=== PATIENT | male | born 1985 | race African-American/Black ===

== ENCOUNTER 2023-04-28 14:22 | Emergency (ER) | payer OTHER, SELFPAY ==
[2023-04-28 14:25] VITALS: BP 120/78; PULSE 105; RESP 18; TEMP 36.8; O2SAT 98
--- NOTE | 2023-04-28 14:37 | ECG_ITS ---
[facility] Test Date: 2023-04-28 Pat Name: LATIA MARAVILLA Department: Room: - Gender: Male [employer]: : 1985 Requested By: [id number] Order Number: [id number] Reading MD: VICENTE STEPHENS Measurements Intervals [place] Rate: 96 P: 43 IL: 160 QRS: -21 QRSD: 94 T: 43 QT: 332 QTc: 386 Interpretive Statements 1100 Sinus rhythm 7202 Moderate left axis deviation 9110 normal ECG No previous ECG available for comparison Electronically Signed On 04-29-2023 7:08:48 EDT by VICENTE STEPHENS
--- NOTE | 2023-04-28 14:39 | ED.PSYCH1 ---
Documented by User: NATALIIA Richardson 04/28/23 16:48 HPI - Psych General Chief Complaint: Psychiatric Symptoms Stated Complaint: SUICIDAL Time Seen by Provider: 04/28/23 14:34 Source: Reports patient and law enforcement Mode of arrival: law enforcement Limitations: Reports no limitations History of Present Illness HPI Narrative: Patient is a 37-year-old male brought in by ambulance for suicidal statements that he may prior to arrival. Police were on scene, they did not pink slip the patient. He made statements that he doesn't want to be here . Patient states he has been having issues with his left knee and left leg since a knee surgery one year ago and he is frustrated that his therapy and specialist appointments are not producing results to improve his functioning. He reports continued pain to the leg. He states it makes him feel hopeless and is though he has wall not be alive. He denies any specific suicidal plan. He denies any drug or alcohol ingestion. He states he does have a history of suicide attempt and has been hospitalized in the past. He states very clearly that he does not wish to be hospitalized and that he will refuse to go. Related Data Allergies Allergy/AdvReac Type Severity Reaction Status Date / Time No Known Drug Allergies Allergy Verified 04/28/23 14:47 Review of Systems ROS Constitutional Denies: fever or chills Ears, nose, mouth, and throat Denies: throat pain Cardiovascular Denies: chest pain Respiratory Denies: shortness of breath Gastrointestinal Denies: nausea or vomiting Musculoskeletal Reports: extremity pain; Denies: back pain or neck pain Integumentary/Breast Denies: rash Psychiatric Reports: hopelessness Hematologic/Lymphatic Denies: easy bruising PFSH PFSH Social History Smoking status: Never smoker Exam Narrative Exam Narrative: Gen.: Awake, alert, in no distress Head: Normocephalic, atraumatic ENT: Moist mucous membranes Respiratory: No respiratory distress Extremities: Knee brace to the left knee Psych: Normal mood and affect Neuro: No focal neuro deficit Skin: Warm, dry, intact Constitutional Vital Signs, click to edit/add: Last Vital Signs Temp 98.2 F 04/28/23 14:25 Pulse 105 H 04/28/23 14:25 Resp 18 04/28/23 14:25 BP 120/78 04/28/23 14:25 Pulse Ox 98 04/28/23 14:25 O2 Del Method Room Air 04/28/23 14:25 Course Vital Signs Vital signs: Vital Signs Temperature 98.2 F 04/28/23 14:25 Pulse Rate 105 H 04/28/23 14:25 Respiratory Rate 18 04/28/23 14:25 Blood Pressure 120/78 04/28/23 14:25 Pulse Oximetry 98 04/28/23 14:25 Oxygen Delivery Method Room Air 04/28/23 14:25 Temperature 98.2 F 04/28/23 14:25 Pulse Rate 105 H 04/28/23 14:25 Respiratory Rate 18 04/28/23 14:25 Blood Pressure 120/78 04/28/23 14:25 Pulse Oximetry 98 04/28/23 14:25 Oxygen Delivery Method Room Air 04/28/23 14:25 MDM - Psych MDM Narrative Medical decision making narrative: Patient remained calm, cooperative in the Emergency Room. His girlfriend came to the Emergency Room and is in agreement with treatment plan for safety plan. Patient discussed his clinical presentation with counseling services at [facility] and a safety plan was initiated. He will follow up with counseling in the next week, his girlfriend will stay with him and he is going have phone call [facility] counseling tomorrow. Return to the Emergency Room if symptoms change or worsen. The patient's therapist was contacted by [facility] counseling services, the symptoms that he is having today are chronic and ongoing for him. Counseling services do not feel he represents a suicidal risk at this time. Medical Records Attestation: I reviewed the patient's medical records. Lab Data Attestation: I reviewed the patient's lab results. Labs: Lab Results 04/28/23 04/28/23 Range/Units 14:55 16:15 WBC 6.3 (4.0-11.0) 10^3/uL RBC 4.83 (4.70-6.10) 10^6/uL Hgb 13.6 L (14.0-18.0) g/dL Hct 40.5 L (42.0-54.0) % MCV 83.9 (80.0-94.0) fL MCH 28.2 (25.9-34.0) pg MCHC 33.6 (29.9-35.2) g/dL RDW 14.4 (11.0-15.0) % Plt Count 188 (150-450) 10^3/uL MPV 9.6 (9.5-13.5) fL Neut % (Auto) 51.5 (43.0-75.0) % Lymph % (Auto) 36.0 (20.5-60.0) % [place] % (Auto) 7.2 (1.7-12.0) % Eos % (Auto) 4.5 (0.9-7.0) % Baso % (Auto) 0.6 (0.2-2.0) % Neut # (Auto) 3.2 (1.4-6.5) 10^3/uL Lymph # (Auto) 2.3 (1.2-3.8) 10^3/uL [place] # (Auto) 0.5 (0.3-0.8) 10^3/uL Eos # (Auto) 0.3 (0.0-0.7) 10^3/uL Baso # (Auto) 0.0 (0.0-0.1) 10^3/uL Abs Immat Gran (auto) 0.01 (0.00-0.03) 10^3/uL Imm/Tot Granulo (auto) 0.2 (0.0-0.5) % Sodium 141 (136-145) mmol/L Potassium 3.9 (3.5-5.1) mmol/L Chloride 104 (98-107) mmol/L Carbon Dioxide 27.2 (21.0-32.0) mmol/L Anion Gap 13.7 BUN 9.0 (7.0-18.0) mg/dL Creatinine 1.19 (0.70-1.30) mg/dL Est GFR ( Amer) >60 (>=60) Est GFR (Non-Af Amer) >60 (>=60) BUN/Creatinine Ratio 7.6 Glucose 89 (74-106) mg/dL Calcium 8.7 (8.5-10.1) mg/dL Total Bilirubin 0.4 (0.2-1.0) mg/dL AST 19 (15-37) U/L ALT 30 (16-63) U/L Alkaline Phosphatase 166 H (46-116) U/L Total Protein 7.5 (6.4-8.2) g/dL Albumin 4.3 (3.4-5.0) g/dL Globulin 3.2 g/dL Albumin/Globulin Ratio 1.3 Salicylates <2.8 (<=19.9) mg/dL Urine Opiates Screen Negative (NEGATIVE) Ur Buprenorphine Scrn Positive A (NEGATIVE) Ur Oxycodone Screen Negative (NEGATIVE) Urine Methadone Screen Negative (NEGATIVE) Ur Propoxyphene Screen Negative (NEGATIVE) Acetaminophen <2.0 L (10.0-30.0) ug/mL Ur Barbiturates Screen Negative (NEGATIVE) U Tricyclic Antidepress Positive A (NEGATIVE) Ur Phencyclidine Scrn Negative (NEGATIVE) Ur Amphetamines Screen Negative (NEGATIVE) U Methamphetamines Scrn Negative (NEGATIVE) U Benzodiazepines Scrn Positive A (NEGATIVE) Urine Cocaine Screen Negative (NEGATIVE) U Cannabinoids Screen Negative (NEGATIVE) Ethanol Quant <3 mg/dL ECG Data Attestation: I personally reviewed and interpreted this ECG as follows: (Normal sinus rhythm at a rate of ninety-six, no acute ST elevation or ectopy. EKG reviewed by attending physician.) ECG interpretation date: 04/28/23 ECG interpretation time: 16:48 Discharge Plan Discharge Chief Complaint: Psychiatric Symptoms Clinical Impression: Depression Patient Disposition: Home, Self-Care Time of Disposition Decision: 16:46 Condition: Good Instructions: Depression (ED) Additional Instructions: Follow up with [facility] counseling as scheduled, return to the ED for any issues Stand Alone Forms: Portal Instructions Referrals: Physician,Non-Staff, [Physician] - 1 week Documented by User: Talya Rivero MD 04/28/23 16:50 HPI - Psych General Chief Complaint: Psychiatric Symptoms Stated Complaint: SUICIDAL Time Seen by Provider: 04/28/23 14:34 Related Data Allergies Allergy/AdvReac Type Severity Reaction Status Date / Time No Known Drug Allergies Allergy Verified 04/28/23 14:47 PFSH PFSH Social History Smoking status: Never smoker Exam Constitutional Vital Signs, click to edit/add: Last Vital Signs Temp 98.2 F 04/28/23 14:25 Pulse 105 H 04/28/23 14:25 Resp 18 04/28/23 14:25 BP 120/78 04/28/23 14:25 Pulse Ox 98 04/28/23 14:25 O2 Del Method Room Air 04/28/23 14:25 Course Vital Signs Vital signs: Vital Signs Temperature 98.2 F 04/28/23 14:25 Pulse Rate 105 H 04/28/23 14:25 Respiratory Rate 18 04/28/23 14:25 Blood Pressure 120/78 04/28/23 14:25 Pulse Oximetry 98 04/28/23 14:25 Oxygen Delivery Method Room Air 04/28/23 14:25 Temperature 98.2 F 04/28/23 14:25 Pulse Rate 105 H 04/28/23 14:25 Respiratory Rate 18 04/28/23 14:25 Blood Pressure 120/78 04/28/23 14:25 Pulse Oximetry 98 04/28/23 14:25 Oxygen Delivery Method Room Air 04/28/23 14:25 MDM - Psych MDM Narrative Medical decision making narrative: Patient remained calm, cooperative in the Emergency Room. His girlfriend came to the Emergency Room and is in agreement with treatment plan for safety plan. Patient discussed his clinical presentation with counseling services at [facility] and a safety plan was initiated. He will follow up with counseling in the next week, his girlfriend will stay with him and he is going have phone call [facility] counseling tomorrow. Return to the Emergency Room if symptoms change or worsen. The patient's therapist was contacted by [facility] counseling services, the symptoms that he is having today are chronic and ongoing for him. Counseling services do not feel he represents a suicidal risk at this time. Attending physician attestation I have reviewed the mid-level documentation, agree with the documentation, medical decision making and treatment plan as outlined by the mid-level provider. Lab Data Labs: Lab Results 04/28/23 04/28/23 Range/Units 14:55 16:15 WBC 6.3 (4.0-11.0) 10^3/uL RBC 4.83 (4.70-6.10) 10^6/uL Hgb 13.6 L (14.0-18.0) g/dL Hct 40.5 L (42.0-54.0) % MCV 83.9 (80.0-94.0) fL MCH 28.2 (25.9-34.0) pg MCHC 33.6 (29.9-35.2) g/dL RDW 14.4 (11.0-15.0) % Plt Count 188 (150-450) 10^3/uL MPV 9.6 (9.5-13.5) fL Neut % (Auto) 51.5 (43.0-75.0) % Lymph % (Auto) 36.0 (20.5-60.0) % [place] % (Auto) 7.2 (1.7-12.0) % Eos % (Auto) 4.5 (0.9-7.0) % Baso % (Auto) 0.6 (0.2-2.0) % Neut # (Auto) 3.2 (1.4-6.5) 10^3/uL Lymph # (Auto) 2.3 (1.2-3.8) 10^3/uL [place] # (Auto) 0.5 (0.3-0.8) 10^3/uL Eos # (Auto) 0.3 (0.0-0.7) 10^3/uL Baso # (Auto) 0.0 (0.0-0.1) 10^3/uL Abs Immat Gran (auto) 0.01 (0.00-0.03) 10^3/uL Imm/Tot Granulo (auto) 0.2 (0.0-0.5) % Sodium 141 (136-145) mmol/L Potassium 3.9 (3.5-5.1) mmol/L Chloride 104 (98-107) mmol/L Carbon Dioxide 27.2 (21.0-32.0) mmol/L Anion Gap 13.7 BUN 9.0 (7.0-18.0) mg/dL Creatinine 1.19 (0.70-1.30) mg/dL Est GFR ( Amer) >60 (>=60) Est GFR (Non-Af Amer) >60 (>=60) BUN/Creatinine Ratio 7.6 Glucose 89 (74-106) mg/dL Calcium 8.7 (8.5-10.1) mg/dL Total Bilirubin 0.4 (0.2-1.0) mg/dL AST 19 (15-37) U/L ALT 30 (16-63) U/L Alkaline Phosphatase 166 H (46-116) U/L Total Protein 7.5 (6.4-8.2) g/dL Albumin 4.3 (3.4-5.0) g/dL Globulin 3.2 g/dL Albumin/Globulin Ratio 1.3 Salicylates <2.8 (<=19.9) mg/dL Urine Opiates Screen Negative (NEGATIVE) Ur Buprenorphine Scrn Positive A (NEGATIVE) Ur Oxycodone Screen Negative (NEGATIVE) Urine Methadone Screen Negative (NEGATIVE) Ur Propoxyphene Screen Negative (NEGATIVE) Acetaminophen <2.0 L (10.0-30.0) ug/mL Ur Barbiturates Screen Negative (NEGATIVE) U Tricyclic Antidepress Positive A (NEGATIVE) Ur Phencyclidine Scrn Negative (NEGATIVE) Ur Amphetamines Screen Negative (NEGATIVE) U Methamphetamines Scrn Negative (NEGATIVE) U Benzodiazepines Scrn Positive A (NEGATIVE) Urine Cocaine Screen Negative (NEGATIVE) U Cannabinoids Screen Negative (NEGATIVE) Ethanol Quant <3 mg/dL Discharge Plan Discharge Chief Complaint: Psychiatric Symptoms Clinical Impression: Depression Patient Disposition: Home, Self-Care Time of Disposition Decision: 16:46 Condition: Good Instructions: Depression (ED) Additional Instructions: Follow up with [facility] counseling as scheduled, return to the ED for any issues Stand Alone Forms: Portal Instructions Referrals: Physician,Non-Staff, [Physician] - 1 week
[2023-04-28 15:03] LABS: Basophils Percent Auto 0.6 % (0.2-2.0); Eosinophils Absolute Auto 0.3 10^3/uL (0.0-0.7); Eosinophils Percent Auto 4.5 % (0.9-7.0); Hematocrit 40.5 % (42.0-54.0); Hemoglobin 13.6 g/dL (14.0-18.0); Immature Granulocytes Abs Auto 0.01 10^3/uL (0.00-0.03); Immature Granulocytes Pct Auto 0.2 % (0.0-0.5); Lymphocytes Absolute Auto 2.3 10^3/uL (1.2-3.8); Mean Corpuscular HGB Conc 33.6 g/dL (29.9-35.2); Mean Corpuscular Hemoglobin 28.2 pg (25.9-34.0); Mean Corpuscular Volume 83.9 fL (80.0-94.0); Mean Platelet Volume 9.6 fL (9.5-13.5); Monocytes Absolute Auto 0.5 10^3/uL (0.3-0.8); Monocytes Percent Auto 7.2 % (1.7-12.0); Neutrophils Absolute Auto 3.2 10^3/uL (1.4-6.5); Neutrophils Percent Auto 51.5 % (43.0-75.0); Platelet Count 188 10^3/uL (150-450); Red Blood Count 4.83 10^6/uL (4.70-6.10); Red Cell Distribution Width 14.4 % (11.0-15.0); White Blood Count 6.3 10^3/uL (4.0-11.0)
[2023-04-28 15:17] LABS: Alanine Aminotransferase 30 U/L (16-63); Albumin Globulin Ratio 1.3; Albumin Level 4.3 g/dL (3.4-5.0); Alkaline Phosphatase 166 U/L (46-116); Anion Gap 13.7; Aspartate Amino Transferase 19 U/L (15-37); BUN Creatinine Ratio 7.6; Bilirubin Total 0.4 mg/dL (0.2-1.0); Calcium 8.7 mg/dL (8.5-10.1); Carbon Dioxide 27.2 mmol/L (21.0-32.0); Chloride 104 mmol/L (98-107); Estimated GFR (African America >60 (>=60); Estimated GFR (Non-African Ame >60 (>=60); Globulin 3.2 g/dL; Glucose 89 mg/dL (74-106); Potassium 3.9 mmol/L (3.5-5.1); Salicylate <2.8 mg/dL (<=19.9); Sodium 141 mmol/L (136-145); Total Protein 7.5 g/dL (6.4-8.2)
[2023-04-28 15:18] LABS: Acetaminophen <2.0 ug/mL (10.0-30.0); Ethanol <3 mg/dL
--- NOTE | 2023-04-28 15:50 | PC.NURSE ---
pt speaking with Malinda, a counselor from [facility], on the phone at this time. girlfriend at bedside. pt appears less anxious/angry and is cooperative at this time
[2023-04-28 16:40] LABS: Amphetamine Screen Urine NEGATIVE (NEGATIVE); Barbiturates Screen Urine NEGATIVE (NEGATIVE); Benzodiazepines Screen Urine POSITIVE (NEGATIVE); Buprenorphine Screen Urine POSITIVE (NEGATIVE); Cannabinoid Screen Urine NEGATIVE (NEGATIVE); Cocaine Screen Urine NEGATIVE (NEGATIVE); Methadone Screen Urine NEGATIVE (NEGATIVE); Methamphetamines Screen Urine NEGATIVE (NEGATIVE); Opiate Screen Urine NEGATIVE (NEGATIVE); Oxycodone Screen Urine NEGATIVE (NEGATIVE); Phencyclidine Screen Urine NEGATIVE (NEGATIVE); Tricyclic Antidepressant Urine POSITIVE (NEGATIVE)
== END 2023-04-28 17:02 | disposition home or self-care (01) ==
PROVIDERS: Physician Assistant; Emergency Provider Emergency Medicine; PCP Nurse Practitioner Family
DX: F32.A Depression, unspecified (principal); R45.851 Suicidal ideations
CPT/HCPCS: 36415; 80053; 80179; 80307; 80320; 80329; 85025; 87635; 93005; 99285

== ENCOUNTER 2023-05-21 10:55 | Outpatient (RCR) | payer OTHER, SELFPAY | END 2023-06-16 15:34 | disposition home or self-care (01) | LOC: PT 10:55 | PROVIDERS: PCP Nurse Practitioner Family | DX: M25.562 Pain in left knee (principal); M25.561 Pain in right knee | CPT/HCPCS: 97110; 97140; 97162 ==

== ENCOUNTER 2023-08-01 14:40 | Emergency (ER) | payer OTHER, SELFPAY ==
[2023-08-01 14:43] VITALS: BP 117/70; PULSE 96; RESP 18; TEMP 36.5; O2SAT 100; BMI 16.5
--- NOTE | 2023-08-01 14:49 | XR_ITS ---
The [address] [address] Patient Name: LATIA MARAVILLA MRN: [id number] date: 1985 Sex: M Assigned Patient Location: ER Current Patient Location: ER Accession/Order Number: [id number] Exam Date: 08/01/2023 15:00 Report Date: 08/01/2023 15:54 At the request of: ELISA ADAME Procedure: XR knee LT 4V EXAM: XR knee LT 4V HISTORY: injury COMPARISON: None. TECHNIQUE: 5 views FINDINGS: Patient is status post total knee replacement arthroplasty. The prosthesis and [place] bone exhibit no gross visualized abnormality. The joint spaces are maintained. XR/XR knee LT 4V IMPRESSION: No visualized acute abnormality Electronically authenticated by: DAMARIS PRESTON Date: 08/01/2023 15:54
--- NOTE | 2023-08-01 14:50 | ED.LOWEXI1 ---
HPI - Extremity Injury (Lower) General Chief Complaint: Extremity Injury, Lower Stated Complaint: LOWER EXTREMITY INJURY Time Seen by Provider: 08/01/23 14:47 Mode of arrival: Wheelchair Limitations: no limitations History of Present Illness HPI Narrative: 38 year old male presents for left knee pain. He had his knee replaced just over a year ago and he states he gives out every day but it gave out today and he went down. He states his knee is shaking. He states he is not on any pain medications at home. Related Data Home Medications Medication Instructions Recorded Confirmed aripiprazole 10 mg tablet 10 mg PO DAILY 08/01/23 08/01/23 atomoxetine 25 mg capsule 25 mg PO DAILY 08/01/23 08/01/23 fluoxetine 40 mg capsule 40 mg PO DAILY 08/01/23 08/01/23 hydroxyzine HCl 50 mg tablet 50 mg PO Q8H 08/01/23 08/01/23 lamotrigine 150 mg tablet 150 mg PO Q8H 08/01/23 08/01/23 Previous Rx's Medication Instructions Recorded etodolac 400 mg tablet 400 mg PO Q8H PRN pain #20 tabs 08/01/23 Allergies Allergy/AdvReac Type Severity Reaction Status Date / Time ketorolac [From Toradol] AdvReac Intermediate Verified 08/01/23 14:46 penicillin G AdvReac Intermediate Verified 08/01/23 14:46 tramadol AdvReac Intermediate Verified 08/01/23 14:46 Review of Systems ROS Narrative A ten point review of systems is negative except as noted above. chronic Left knee pain PFSH PFSH Social History Smoking status: Never smoker Exam Constitutional Vital Signs, click to edit/add: Last Vital Signs Temp 97.7 F 08/01/23 14:43 Pulse 96 H 08/01/23 14:43 Resp 18 08/01/23 14:43 BP 117/70 08/01/23 14:43 Pulse Ox 100 08/01/23 14:43 O2 Del Method Room Air 08/01/23 14:43 Course Vital Signs Vital signs: Vital Signs Temperature 97.7 F 08/01/23 14:43 Pulse Rate 96 H 08/01/23 14:43 Respiratory Rate 18 08/01/23 14:43 Blood Pressure 117/70 08/01/23 14:43 Pulse Oximetry 100 08/01/23 14:43 Oxygen Delivery Method Room Air 08/01/23 14:43 Temperature 97.7 F 08/01/23 14:43 Pulse Rate 96 H 08/01/23 14:43 Respiratory Rate 18 08/01/23 14:43 Blood Pressure 117/70 08/01/23 14:43 Pulse Oximetry 100 08/01/23 14:43 Oxygen Delivery Method Room Air 08/01/23 14:43 MDM - Extremity Injury (Lower) MDM Narrative Medical decision making narrative: x-ray my interpretation shows no acute findings. He has crutches at home. Eugene wrap applied and application checked by me and found be appropriate, he is neuroovascularly intact. He was provided anti-inflammatory medication and will follow-up with his orthopedist. Treat diagnosis and follow-up were discussed with the patient. Differential Diagnosis Differential diagnosis: Likely other (knee sprain, hardware displacement) Imaging Data knee x-ray: My impression: no acute findings Discharge Plan Discharge Chief Complaint: Extremity Injury, Lower Clinical Impression: Chronic knee pain Patient Disposition: Home, Self-Care Time of Disposition Decision: 15:53 Condition: Good Mode of Transportation: Private Vehicle Prescriptions / Home Meds: New etodolac 400 mg tablet 400 mg PO Q8H PRN (Reason: pain) Qty: 20 0RF No Action aripiprazole 10 mg tablet 10 mg PO DAILY atomoxetine 25 mg capsule 25 mg PO DAILY fluoxetine 40 mg capsule 40 mg PO DAILY hydroxyzine HCl 50 mg tablet 50 mg PO Q8H lamotrigine 150 mg tablet 150 mg PO Q8H Instructions: Crutch Instructions (ED), Chronic Pain (ED) Stand Alone Forms: Portal Instructions Referrals: FELICIA ANTONIO [Primary Care Provider] - 1 week
== END 2023-08-01 16:07 | disposition home or self-care (01) ==
PROVIDERS: Emergency Provider Emergency Medicine; PCP Nurse Practitioner Family
DX: M25.562 Pain in left knee (principal); G89.29 Other chronic pain; Z96.652 Presence of left artificial knee joint; Z79.899 Other long term (current) drug therapy
CPT/HCPCS: 73564; 99283

== ENCOUNTER 2024-06-14 07:54 | Outpatient (OUT) | payer OTHER, SELFPAY ==
--- OUTSIDE RECORDS SUMMARY | 2024-06-14 08:00 | XMS_ITS | CCD ---
Author Organization [facility] Care Team Providers Care 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 Name Role Phone Teddy Lam Unavailable Unavailable Kentrell Ramírez Unavailable Unavailable Unavailable Unavailable Unavailable Trey Wright Unavailable Dario Marroquin Unavailable NO FAMILY, PHYSICIAN Primary Care Provider Unava MD Trey Das Attending Provider [phone] DO Jelena Gregorio Jr Attending Provider NON STAFF Primary Care Provider UnavailMD Isaías Castle Attending Provider [phone] NO FAMILY, PHYSICIAN Primary Care Provider Unava imani Witt, LeonardD Shanda Other Provider Yolande Beck Unavailable George Chaparro DO Unavailable Андрей Goode Primary Care Provider [phone] Raisa Cabrera PA-C Unavailable REQUEST, NONE LISTED Primary Care Unavaila ble EVIN SHETH Admitting Unavailable EVIN SHETH Attending Unavailable SHAWN MCCABE Consulting Unavailable Katie Rodriguez Consulting Unavailable EVIN SHETH Consulting Unavailable MISC, DR VERA Admitting Unavailable MISC, DR VERA Attending Unavailable REQUEST, NONE LISTED Primary Care Unavaila ble MISC, DR VERA Consulting Unavailable MISC, DR VERA Admitting Unavailable MISC, DR VERA Attending Unavailable REQUEST, NONE LISTED Primary Care Unavaila ble MISC, DR VERA Consulting Unavailable George Chaparro DO Unavailable PROVIDER, UNKNOWN Attending Unavailable PROVIDER, UNKNOWN Admitting Unavailable NO FAMILY, PHYSICIAN Primary Care Provider Unava ilDO Jelena Spears Jr Attending Provider PLASENCIA, SHEA Attending Unavailable PLASENCIA, SHEA Referring Unavailable PAVLOCK, [facility] Primary Care Unavailable PLASENCIA, SHEA Referring Unavailable PAVLOCK, [facility] Primary Care Unavailable SEMPLE, TORIBIO Referring Unavailable PAVLOCK, [facility] Primary Care Unavailable PLASENCIA, SHEA Attending Unavailable PLASENCIA, SHEA Referring Unavailable PAVLOCK, [facility] Primary Care Unavailable KELLE GORDON Attending Unavailable PAVLOCK, [facility] Primary Care Unavailable PLASENCIA, SHEA Attending Unavailable PAVLOCK, [facility] Primary Care Unavailable KARI, FUAD Attending Unavailable PLASENCIA, SHEA Referring Unavailable PAVLOCK, [facility] Primary Care Unavailable PAVLOCK, [facility] Primary Care Unavailable PLASENCIA, SHEA Attending Unavailable PAVLOCK, [facility] Primary Care Unavailable PLASENCIA, SHEA Referring Unavailable PAVLOCK, [facility] Primary Care Unavailable KARI, FUAD Referring Unavailable POOJA CORDON Attending Unavailable PAVLOCK, [facility] Primary Care Unavailable PAVLOCK, [facility] Primary Care Unavailable PLASENCIA, SHEA Referring Unavailable KELLE GORDON Attending Unavailable PAVLOCK, [facility] Primary Care Unavailable PLASENCIA, SHEA Attending Unavailable DESTINEY GARCIA Attending Unavailable PLASENCIA, SHEA Referring Unavailable PAVLOCK, [facility] Primary Care Unavailable VIVIANA MACEDO Attending Unavailable PAVLOCK, [facility] Primary Care Unavailable PLASENCIA, SHEA Referring Unavailable SEMPLE, TORIBIO Attending Unavailable PAVLOCK, [facility] Primary Care Unavailable ANA, DAMARIS Referring Unavailable JURGEN SCOTT Attending Unavailable ANA, DAMARIS Referring Unavailable DAMARIS PEREZ Attending Unavailable JR. GREGORIO GEORGE C Attending Unavaila wong GREGORIO JR., JELENA Stallings Attending Unavaila wong GREGORIO JR., JELENA Stallings Attending Unavaila ble JR. GREGORIO GEORGE C Referring Unavaila ble JR. ANITHA, JELENA Stallings Attending Unavaila ble NAKUL SOSA Attending Unavailable GENERIC PROVIDER, NO ASSIGNED PCP Primary Care Unavailable NAKUL SOSA Referring Unavailable GENERIC PROVIDER, NO ASSIGNED PCP Primary Care Unavailable NO FAMILY, PHYSICIAN Primary Care Unavailable Jelena Gregorio Jr Admitting Unavailable Jelena Gregorio Jr Attending Unavailable Penelope Pastrana Admitting Unavailable Penelope Pastrana Attending Unavailable NO FAMILY, PHYSICIAN Primary Care Unavailable Allergies Allergy Classification Reported Allergen(s) Allergy Type Date of Onset Reaction(s) Facility (1 source) penicillin; Translations: [penicillin] Drug Allergy [facility] Repository (20 sources) Ketorolac; Translations: [KETOROLAC] Drug Allergy 03-07-20 19 Other: See Comments [facility] (20 sources) Penicillins; Translations: [Penicillins] Allergy to Substance 05-07-20 13 Swelling [facility] (20 sources) traMADol; Translations: [tramadol] Drug Allergy 09-22-19 15 Mental Status Change [facility] (17 sources) Ketorolac; Translations: [Toradol] Drug Allergy 09-22-19 15 anxiety [facility] Repository (16 sources) penicillAMINE Drug Allergy [facility] Other (1 source) ALLERGIES NOT ON FILE; Translations: [ALLERGIES NOT ON FILE] Propensity to adverse reactions (disorder) [facility] Repository (1 source) penicillAMINE Drug Allergy 06-04-20 23 [facility] Repository Medications Current Medications Medication Drug Class(es) Dates Sig (Normalized) Sig (Original) acetaminophen 325 mg / oxyCODONE hydrochloride 5 mg oral tablet (2 sources) Opioid Agonist Start: 06-05-2022 take 1 tablet by mouth every six hours Oxycodone-Acetami nophen (Percocet) 5-325 mg tablet Active 1 TAB PO Q6H 28 7 June 05, 2022 aspirin 81 mg delayed release oral tablet (2 sources) Platelet Aggregation Inhibitor, Nonsteroidal Anti-inflammatory Drug Start: 06-09-2022 take 81 mg by mouth twice daily Aspirin Active 81 MG PO Twice daily June 09, 2022 12:00am hydrOXYzine hydrochloride 25 mg oral tablet (20 sources) Antihistamine Start: 03-04-2022 take 50 mg by mouth four times daily Hydroxyzine Hcl Active 50 MG PO Four times daily March 04, 2022 12:00am Start: 06-27-2021 take 1 tablet by netta th every eight hours as needed hydrOXYzine HCl (ATARAX) 25 mg tablet 25 mg three times daily as needed. 0 06/27/2021 Active Comment on above: 25 mg three times da sang as needed. lidocaine 0.05 mg/mg medicated patch (1 source) Antiarrhythmic, Amide Local Anesthetic Start: 06-04-20 Lidocaine 5 % 2 patches Externally Once a day for 30 days May, Active lumateperone 42 mg oral capsule (4 sources) Start: 05-19-20 take 1 capsule by mouth once daily Lumateperone (Caplyta) 42 mg capsule Active 42 MG PO Daily May 19, 2022 12:00am methocarbamol 750 mg oral tablet (11 sources) Muscle Relaxant Start: 03-24-20 End: 07-11-20 take 1 tablet by mouth every six hours as needed methocarbamol (ROBAXIN) 750 mg tablet Take 1 tablet by mouth four times a day as needed. 120 tablet 0 06/11/2023 07/11/2023 Active Start: 01-13-2023 End: 02-12-2023 take 1 tablet by mouth four times daily as needed methocarbamol (ROBAXIN-750) 750 mg tablet Take 1 tablet by mouth four times daily as needed. 120 tablet 0 01/13/2023 02/12/2023 Active Comment on above: Take 1 tablet by netta th four times daily as needed. TAKE 1 TABLET BY NETTA TH 4 TIMES A DAY NEEDED Take 1 tablet by netta th four times a day as needed. Naltrexone (3 sources) Opioid Antagonist Start: 3 End: 3 take 1 capsule by mouth once daily naltrexone 0.5 mg capsule (CPD) Take 1 capsule by mouth once daily. 30 capsule 0 06/28/2023 07/28/2023 Active Comment on above: Take 1 capsule by mo [facility] once daily. omeprazole 40 mg delayed release oral capsule (17 sources) Proton Pump Inhibitor Start: 2 take 40 mg by mouth once daily Omeprazole Active 40 MG PO Daily March 04, 2022 12:00am QUEtiapine 400 mg oral tablet (20 sources) Atypical Antipsychotic Start: 1 take 800 mg by mouth once daily at bedtime Quetiapine Active 800 MG PO Daily at bedtime October 22, 2020 1:00am Start: 08-14-2019 End: 10-22-2020 take 2 tablets by mouth at bedtime Quetiapine (Seroquel) 300 mg tablet Discontinued 600 MG PO Bedtime August 14, 2019 10:08am October 22, 2020 6:56pm Start: 06-16-2019 End: 08-14-2019 take 300 mg by mouth at bedtime Quetiapine Discontinue d 300 MG PO Bedtime June 16, 2019 12:00am August 14, 2019 10:08am Start: 03-07-2019 End: 06-16-2019 take 600 mg by mouth at bedtime Quetiapine Discontinue d 600 MG PO Bedtime March 07, 2019 12:00am June 16, 2019 2:43pm take 2 tablets by mo ut once daily at bedtime QUEtiapine (SEROQUEL) 400 mg tablet Take 800 mg by mouth daily at bedtime. 0 Active End: 06-28-2023 QUEtiapine (SEROQUEL) 200 mg tablet Take 200 mg by mouth. 0 06/28/2023 Discontinued Comment on above: Take 200 mg by mouth . Take 800 mg by mouth daily at bedtime. TENS Unit (1 source) Start: 06-04-2023 TENS Unit Use as directed. May, Active Completed/Discontinued Medications Medication Drug Class(es) Dates Sig (Normalized) Sig (Original) acetaminophen 500 mg oral tablet (4 sources) Start: 02-23-2020 End: 10-22-2020 take 2 tablets by mouth once daily Acetaminophen (Acetaminophen Extra Strength) 500 mg Tablet Discontinued 1000 MG PO Daily February 23, 2020 12:00am October 22, 2020 6:56pm acetaminophen 325 mg / HYDROcodone bitartrate 5 mg oral tablet (4 sources) Opioid Agonist Start: 03-14-2020 End: 05-29-2020 take 1 tablet by mouth every four to six hours Hydrocodone-Acetam inophen (Hamilton) 5-325 mg tablet Discontinued 1 TAB PO EVERY 4-6 HOURS 5 2 March 14, 2020 May 29, 2020 11:08am ALPRAZolam 1 mg oral tablet (8 sources) Benzodiazepine Start: 03-07-2019 End: 06-16-2019 take 1 mg by mouth three times daily Alprazolam Discontinued 1 MG PO Three times daily March 07, 2019 12:00am June 16, 2019 2:43pm atomoxetine 60 mg oral capsule (20 sources) Norepinephrine Reuptake Inhibitor Start: 12-10-2022 take 1 capsule by mouth once daily atomoxetine (STRATTERA) 60 mg capsule Take 60 mg by mouth once daily. 0 12/10/2022 Active Start: 05-19-2022 take 25 mg by mouth once daily Atomoxetine Active 25 MG PO Daily May 19, 2022 12:00am Comment on above: Take 60 mg by mouth once daily. baclofen 10 mg oral tablet (8 sources) gamma-Aminobutyric Acid-ergic Agonist Start: 02-23-20 End: 03-24-20 take 1 tablet by mouth three times daily as needed baclofen (LIORESAL) 10 mg tablet Indications: Myofascial pain , Spasm of muscle Take 1 tablet by mouth three times daily as needed. 90 tablet 0 02/22/2023 03/24/2023 Comment on above: Take 1 tablet by netta three times daily as needed. brexpiprazole 0.5 mg oral tablet (17 sources) Atypical Antipsychotic Start: 07-04-20 brexpiprazole (REXULTI) 0.5 mg tablet 0.5 mg once daily. 0 07/04/2021 Active Comment on above: 0.5 mg once daily. busPIRone hydrochloride 10 mg oral tablet (1 source) busPIRone (BUSPA R) 10 mg tablet 10 mg twice daily. 0 Active Comment on above: 10 mg twice daily. cariprazine 6 mg oral capsule (12 sources) Atypical Antipsychotic Start: 06-13-20 End: 02-23-20 take 1 capsule by mouth at bedtime Cariprazine Discontinued 1 CAP PO Bedtime June 13, 2019 12:00am February 23, 2020 4:11pm Start: 03-07-2019 End: 06-13-2019 take 4.5 mg by mouth once daily Cariprazine Discontinued 4.5 MG PO Daily March 07, 2019 12:00am June 13, 2019 10:26am celecoxib 200 mg oral capsule (20 sources) Nonsteroidal Anti-inflammatory Drug Start: 07-07-2021 End: 06-28-2023 celecoxib (CELEBREX) 200 mg capsule 200 mg once daily. 0 07/07/2021 06/28/2023 Discontinued Comment on above: 200 mg once daily. citalopram 10 mg oral tablet (16 sources) Serotonin Reuptake Inhibitor Start: 06-16-2019 End: 08-17-2019 take 10 mg by mouth once daily Citalopram Discontinued 10 MG PO Daily 14 June 16, 2019 12:00am August 17, 2019 12:22pm Start: 06-13-2019 End: 06-16-2019 take 5 mg by mouth once daily Citalopram Discontinued 5 MG PO Daily June 13, 2019 12:00am June 16, 2019 2:43pm Start: 03-07-2019 End: 03-07-2019 Citalopram March 07, 2019 Dis continued Start: 03-07-2019 End: 03-07-2019 Citalopram March 07, 2019Feb Discontinued Start: 03-07-2019 End: 03-07-2019 Citalopram March 07, 2019 Dis continued Start: 03-07-2019 End: 03-07-2019 Citalopram March 07, 2019Feb Discontinued Start: 03-07-2019 End: 03-07-2019 Citalopram Discontinued TABL ET March 07, 2019 12:00am March 07, 2019 3:26am clonazePAM 0.5 mg oral tablet (4 sources) Benzodiazepine Start: 06-16-2019 End: 08-17-2019 take 0.5 mg by mouth twice daily Clonazepam Discontinued 0.5 MG PO Twice daily 14 June 16, 2019 12:00am August 17, 2019 12:22pm diazePAM 5 mg oral tablet (4 sources) Benzodiazepine Start: 10-11-2020 End: 10-22-2020 take 5 mg by mouth four times daily Diazepam Discontinued 5 MG PO Four times daily 30 October 11, 2020 1:00am October 22, 2020 5:35pm diclofenac sodium 0.01 mg/mg topical gel (16 sources) Nonsteroidal Anti-inflammatory Drug Start: 03-18-2023 End: 06-28-2023 diclofenac (VOLTAREN) 1 % topical gel Indications: Left leg pain , Myofascial pain , Spasm of muscle Apply judiciously 2-3 times per day left knee - read package insert for max daily dosing instructions 50 g 4 03/18/2023 06/28/2023 Discontinued Start: 01-25-2023 take 1 tablet by netta th every twelve hours Diclofenac Sodium 75 MG 1 tablet as needed Orally Twice a day for 30 days January, Active Comment on above: Apply judiciously 2- 3 times per day left knee - read package insert for max daily dosing instructions ergocalciferol 1.25 mg oral capsule (4 sources) Provitamin D2 Compound Start: End: take 1 capsule by mouth every week Ergocalciferol (Vitamin D2) (Vitamin D2) 50,000 unit capsule Discontinued [id number] UNIT PO every week 30 Marco A 5th, 2019 1:00am October 22, 2020 6:56pm takes jo-ann morning FLUoxetine 40 mg oral capsule (20 sources) Serotonin Reuptake Inhibitor Start: 023 take 2 capsules by mouth once daily FLUoxetine (PROZAC) 40 mg capsule Take 80 mg by mouth once daily. 0 12/18/2022 Active Start: 05-19-2022 take 40 mg by mouth once daily, then take 60 mg by mouth once daily Fluoxetine Active 20 MG PO Daily May 19, 2022 12:00am with 40mg for total 60mg daily Start: 05-19-2022 take 20 mg by mouth once daily, then take 60 mg by mouth once daily Fluoxetine Active 40 MG PO Daily May 19, 2022 12:00am with 20mg for total 60mg daily PROzac Active Comment on above: Take 80 mg by mouth once daily. gabapentin 300 mg oral capsule (20 sources) Anti-epileptic Agent Start: 02-06-20 End: 05-06-20 23 take 1 capsule by mouth three times daily gabapentin (NEURONTIN) 300 mg capsule Indications: Radiculopathy of lumbar region Take 1 capsule by mouth three times daily for 90 days. 90 capsule 2 02/05/2023 Active Comment on above: Take 1 capsule by mo [facility] three times daily for 90 days. ibuprofen 800 mg oral tablet (20 sources) Nonsteroidal Anti-inflammatory Drug take 1 tablet by mouth every eight hours as needed ibuprofen (MOTRIN) 800 mg tablet Take 800 mg by mouth every 8 hours as needed. 0 Active Comment on above: Take 800 mg by mouth every 8 hours as needed. lamoTRIgine 100 mg oral tablet (20 sources) Mood Stabilizer, Anti-epileptic Agent Start: 04-11-20 21 lamoTRIgine (LAMICTAL) 100 mg tablet 100 mg twice daily. 0 04/11/2021 Active Start: 06-13-2019 Lamotrigine (L amictal) 25 mg tablet Active 150 MG PO Twice daily June 13, 2019 7:02am Start: 03-10-2019 End: 06-13-2019 take 25 mg by mouth twice daily Lamotrigine Discontinu ed 25 MG PO Twice daily March 10, 2019 12:00am June 13, 2019 7:02am take 1 tablet by netta every twenty-four hours LaMICtal 100 MG 1 tablet Orally Once a day Active take 2 tablets by mo [facility] every twelve hours Comment on above: 100 mg twice daily. lithium carbonate 300 mg oral capsule (20 sources) Start: 06-27-2021 End: 06-28-2023 lithium carbonate (ESKALITH) 300 mg capsule 300 mg three times daily with meals. 0 06/27/2021 06/28/2023 Discontinued Start: 02-26-2021 End: 05-19-2022 take 300 mg by mouth once daily Bradford Carbonate Disc ontinued 300 MG PO Daily March 04, 2022 12:00am May 19, 2022 3:32pm Start: 08-14-2019 End: 02-23-2020 take 300 mg by mouth once daily Bradford Carbonate Disc ontinued 300 MG PO Daily August 14, 2019 1:00am February 23, 2020 4:13pm Start: 08-14-2019 End: 02-23-2020 take 600 mg by mouth at bedtime Bradford Carbonate Disc ontinued 600 MG PO Bedtime August 14, 2019 1:00am February 23, 2020 4:14pm Start: 03-07-2019 End: 06-13-2019 take 600 mg by mouth twice daily Bradford Carbonate Discontinued 600 MG PO Twice daily March 07, 2019 12:00am June 13, 2019 10:28am Comment on above: 300 mg three times d aily with meals. LORazepam 0.5 mg oral tablet (20 sources) Benzodiazepine Start: 2022 take 0.5 mg by mouth three times daily LORazepam (ATIVAN) 0.5 mg Take 0.5 mg by mouth three times daily. 0 01/03/2023 Active Comment on above: Take 0.5 mg by mouth three times daily. meloxicam 7.5 mg oral tablet (4 sources) Nonsteroidal Anti-inflammatory Drug Start: 2021 End: 2021 take 7.5 mg by mouth once daily Meloxicam Discontinued 7.5 MG PO Daily May 19, 2022 12:00am June 09, 2022 1:42pm methylPREDNISolone 4 mg oral tablet (20 sources) Corticosteroid Start: 2020 End: 2020 take 1 tablet by mouth once Methylprednisolone (Medrol (Julius)) 4 mg tablets,dose pack Discontinued 0 PO .COMPLEX October 15, 2020 1:00am October 22, 2020 6:56pm orally per package directions Start: 01-31-2020 Depo-Medrol 40 mg January, 40 mg Start: 01-12-2020 Depo-Medrol 80 mg January, 80 mg mirtazapine 15 mg oral tablet (4 sources) Start: 08-14-2019 End: 02-23-2020 take 15 mg by mouth at bedtime Mirtazapine Discontinued 15 MG PO Bedtime August 14, 2019 1:00am February 23, 2020 4:14pm naproxen 500 mg oral tablet (4 sources) Nonsteroidal Anti-inflammatory Drug Start: 03-01-2020 End: 05-29-2020 take 500 mg by mouth twice daily Naproxen Discontinued 500 MG PO Twice daily March 01, 2020 12:00am May 29, 2020 11:08am nicotine 2 mg chewing gum (4 sources) Cholinergic Nicotinic Agonist Start: 08-17-2019 End: 02-23-2020 Nicotine (Polacrilex) (Nicorelief) 2 mg Gum Discontinued 2 MG BUCCAL Every 2 hours August 17, 2019 1:00am February 23, 2020 4:14pm oxyCODONE hydrochloride 5 mg oral tablet (12 sources) Opioid Agonist Start: 10-11-2020 End: 10-22-2020 take 5 mg by mouth every four to six hours Oxycodone Discontinued 5 MG PO EVERY 4-6 HOURS 70 October 11, 2020 October 22, 2020 5:35pm Start: 03-07-2019 End: 06-13-2019 take 10 mg by mouth every six hours Oxycodone Discontinued 10 MG PO Q6H March 07, 2019 12:00am June 13, 2019 10:28am 24 hr paliperidone 3 mg extended release oral tablet (8 sources) Atypical Antipsychotic Start: 03-25-2022 End: 05-19-2022 take 3 mg by mouth once daily at bedtime Paliperidone Discontinued 3 MG PO Daily at bedtime May 19, 2022 12:00am May 19, 2022 3:37pm pantoprazole (20 sources) Proton Pump Inhibitor End: 06-28-2023 pantoprazole sodium (PROTONIX ORAL) Take by mouth as needed. 0 06/28/2023 Discontinued pantoprazole sod ium (PROTONIX ORAL) Take by mouth as needed. 0 Active Comment on above: Take by mouth as nee ded. prazosin 1 mg oral capsule (20 sources) alpha-Adrenergic Meredith Start: 05-19-2022 take 1 capsule by mouth once daily at bedtime prazosin (MINIPRESS) 1 mg cap Take 1 mg by mouth daily at bedtime. 0 01/02/2023 Active Comment on above: Take 1 mg by mouth d aily at bedtime. SUMAtriptan 25 mg oral tablet (12 sources) Serotonin-1b and Serotonin-1d Receptor Agonist Start: 06-16-2019 End: 02-23-2020 take 25 mg by mouth once daily Sumatriptan Succinate Discontinued 25 MG PO Daily 14 June 16, 2019 12:00am February 23, 2020 4:16pm Start: 03-10-2019 End: 06-13-2019 take 50 mg by mouth every eight hours Sumatriptan Succinate Discontinued 50 MG PO Q8H March 10, 2019 12:00am June 13, 2019 10:28am SZSTANDARD1-Topical Cream Baclofen 2%, Cyclobenzaprine HCL 2%, Diclofenac Na 3%, Gabapentin 6%, Lidocaine HCL 2% Cream (5 sources) Start: 12-10-2022 SZSTANDARD1-To pical Cream Baclofen 2%, Cyclobenzaprine HCL 2%, Diclofenac Na 3%, Gabapentin 6%, Lidocaine HCL 2% Cream NEEDED TOPICALLY APPLY 1-2 GRAMS FOR 2-3 MINUTES EVERY 6-8 HOURS for 30 days Nov, Not-Taking Start: 12-10-2022 SZSTANDARD1-To pical Cream Baclofen 2%, Cyclobenzaprine HCL 2%, Diclofenac Na 3%, Gabapentin 6%, Lidocaine HCL 2% Cream NEEDED TOPICALLY APPLY 1-2 GRAMS FOR 2-3 MINUTES EVERY 6-8 HOURS for 30 days Nov, Active traZODone hydrochloride 50 mg oral tablet (20 sources) Serotonin Reuptake Inhibitor Start: 06-25-2021 traZODone (DESYREL) 50 mg tablet 100 mg daily at bedtime. 0 06/25/2021 Active Start: 10-22-2020 take 100 mg by mouth once daily at bedtime Trazodone Active 100 MG PO Daily at bedtime October 22, 2020 1:00am Start: 10-01-2020 End: 10-22-2020 take 100 mg by mouth once daily at bedtime Trazodone Discontinued 100 MG PO Daily at bedtime October 01, 2020 1:00am October 22, 2020 6:56pm Comment on above: 100 mg daily at bedt marilee. Triamcinolone (20 sources) Corticosteroid Start: 03-25-2020 Kenalog -40 mg Mar, 40 mg Start: 01-31-2020 Kenalog -40 mg January, 1 mL divalproex sodium 250 mg delayed release oral tablet (12 sources) Mood Stabilizer, Anti-epileptic Agent Start: 06-13-2019 End: 06-16-2019 take 1 tablet by mouth once daily Divalproex Discontinued 1 TAB PO Daily June 13, 2019 12:00am June 16, 2019 2:43pm Start: 03-07-2019 End: 06-13-2019 take 500 mg by mouth twice daily Divalproex Discontinued 500 MG PO Twice daily March 07, 2019 12:00am June 13, 2019 10:24am vortioxetine 10 mg oral tablet (4 sources) Start: 05-29-2020 End: 10-01-2020 take 1 tablet by mouth once daily Vortioxetine (Trintellix) 10 mg tablet Discontinued 10 MG PO Daily May 29, 2020 12:00am October 01, 2020 12:09pm Problems Active Problems Problem Classification Problem Date Documented Da te Episodic/Chronic Anxiety disorders (2 sources) Generalized anxiety disorder; Translations: [Generalized anxiety disorder] Onset: 3 08-09-2023 Chronic Biliary tract disease (16 sources) Choledochal cyst; 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 Complication of device; implant or graft (7 sources) Loosening of total knee replacement; Translations: [Mechanical loosening of internal left knee prosthetic joint, initial encounter] Onset: 3 06-05-2022 Episodic Complications of surgical procedures or medical care (4 sources) Postoperative ileus; Translations: [Other postprocedural complications and disorders of digestive system] 10-10-2020 Episodic Epilepsy; convulsions (4 sources) Seizure; Translations: [Unspecified convulsions] 06-13-2019 Episodic Fluid and electrolyte disorders (4 sources) Hypokalemia; Translations: [Hypokalemia] 06-13-2019 Episodic Headache; including migraine (6 sources) Migraine; Translations: [Migraine, unspecified, not intractable, without status migrainosus] 03-09-2019 Chronic Headache; including migraine (6 sources) Daily headache; Translations: [Daily headache] 03-07-2019 Episodic Joint disorders and dislocations; trauma-related (16 sources) Acute meniscal tear, medial; Translations: [Other tear of medial meniscus, current injury, left knee, initial encounter] Episodic Miscellaneous mental health disorders (2 sources) Pain disorder with psychological factor; Translations: [Pain disorder with related psychological factors] Onset: 3 08-09-2023 Chronic Mood disorders (3 sources) Bipolar I disorder; Translations: [Bipolar disorder, unspecified] Onset: 3 06-28-2023 Chronic Other acquired deformities (16 sources) Congenital leg length discrepancy; Translations: [Unequal limb length (acquired), unspecified site] Episodic Other acquired deformities (16 sources) Lumbar spondylolisthesis; Translations: [Spondylolisthesis, lumbar region] Episodic Other acquired deformities (16 sources) Spondylolisthesis; Translations: [Spondylolisthesis, lumbosacral region] Episodic Other acquired deformities (2 sources) Spondylolisthesis, lumbar region Onset: 2 Resolved: 2 Episodic Other acquired deformities (4 sources) Spondylolisthesis L5/S1 level; Translations: [Spondylolisthesis, lumbosacral region] 10-09-2020 Episodic Other aftercare (6 sources) Other fci (current) drug therapy; Translations: [OTH IP ATTORNEY CURRENT DRUG THERAPY] Onset: 2 Episodic Other aftercare (1 source) Prescribed medication regimen behavior finding; Translations: [Other fci (current) drug therapy] 08-09-2023 Episodic Other circulatory disease (2 sources) Elevated blood pressure; Translations: [Elevated blood-pressure reading, without diagnosis of hypertension] 06-05-2022 Episodic Other connective tissue disease (1 source) History of total knee arthroplasty; Translations: [Presence of left artificial knee joint] 04-26-2023 Chronic Other connective tissue disease (1 source) Artificial knee joint present; Translations: [Presence of left artificial knee joint] Chronic Other connective tissue disease (4 sources) Presence of left artificial knee joint; Translations: [Pain due to total left knee replacement, initial encounter ([facility])] Onset: 3 Chronic Other connective tissue disease (2 sources) History of lumbar fusion; Translations: [Arthrodesis status] Episodic Other connective tissue disease (3 sources) Pain in left lower limb; Translations: [Pain in left leg] Episodic Other connective tissue disease (2 sources) Myofascial pain; Translations: [Myalgia, other site] Episodic Other connective tissue disease (3 sources) Spasm; Translations: [Other muscle spasm] Episodic Other connective tissue disease (1 source) Neuropathy; Translations: [Neuralgia and neuritis, unspecified] 03-18-2023 Episodic Other gastrointestinal disorders (4 sources) Diarrhea; Translations: [Diarrhea, unspecified] 06-13-2019 Episodic Other nervous system disorders (16 sources) Chronic pain; Translations: [Other chronic pain] Chronic Other nervous system disorders (7 sources) Other chronic pain; Translations: [Chronic pain of left knee] Onset: 2 Resolved: 2 Chronic Other nervous system disorders (1 source) Common peroneal nerve compression; Translations: [Lesion of sciatic nerve, left lower limb] Chronic Other nervous system disorders (1 source) Chronic pain syndrome; Translations: [Chronic pain syndrome] 08-09-2023 Chronic Other nervous system disorders (1 source) Chronic pain syndrome; Translations: [Chronic pain syndrome] Onset: 3 Chronic Other nervous system disorders (1 source) Lesion of sciatic nerve, left lower limb; Translations: [Compression of common peroneal nerve of left lower extremity] Onset: 3 Chronic Other nervous system disorders (4 sources) Paresthesia of right lower limb; Translations: [Paresthesia of skin] 10-15-2020 Episodic Other nervous system disorders (8 sources) Postoperative pain ; Translations: [Other acute postprocedural pain] 10-22-2020 Episodic Other nervous system disorders (2 sources) Abnormal gait; Translations: [Unsteadiness on feet] Episodic Other non-traumatic joint disorders (16 sources) Arthralgia of the lower leg; Translations: [Pain in left knee] Episodic Other non-traumatic joint disorders (4 sources) Swollen knee region; Translations: [Effusion, unspecified knee] 03-14-2020 Episodic Other non-traumatic joint disorders (20 sources) Pain in left knee; Translations: [Left knee pain] Onset: 2 03-01-2020 Episodic Other non-traumatic joint disorders (2 sources) Effusion of joint of left knee; Translations: [Effusion, left knee] Episodic Other non-traumatic joint disorders (3 sources) Pain in right knee; Translations: [Pain in right knee] Onset: 4 Episodic Other nutritional; endocrine; and metabolic disorders (6 sources) Hyperammonemia; Translations: [Disorder of urea cycle metabolism, unspecified] 03-09-2019 Chronic Other nutritional; endocrine; and metabolic disorders (1 source) Body mass index 30+ - obesity; Translations: [Body mass index (BMI) 30.0-30.9, adult] 03-22-2023 Chronic Residual codes; unclassified (1 source) History of clinical finding in subject; Translations: [Personal history of other specified conditions] 03-22-2023 Episodic Residual codes; unclassified (1 source) Treatment not available; Translations: [Procedure and treatment not carried out for other reasons] 07-02-2023 Episodic Schizophrenia and other psychotic disorders (6 sources) Schizoaffective disorder; Translations: [Schizoaffective disorder, unspecified] 06-13-2019 Chronic Spondylosis; intervertebral disc disorders; other back problems (20 sources) Degeneration of lumbar intervertebral disc; Translations: [Other intervertebral disc degeneration, lumbar region] Onset: 2 Resolved: 2 Chronic Unclassified (1 source) Pain in left knee; Translations: [Pain in left knee] Onset: 3 Past or Other Problems Problem Classification Problem Date Documented Da te Episodic/Chronic Joint disorders and dislocations; trauma-related (3 sources) Tear of medial meniscus of knee; Translations: [Other tear of medial meniscus, current injury, right knee, initial encounter] Onset: 01-13-2023 Episodic Malaise and fatigue (2 sources) Asthenia; Translations: [Weakness] Onset: 01-13-2023 Episodic Other acquired deformities (3 sources) Spondylolisthesis, lumbosacral region Onset: 07-30-2021 Resolved: 01-28-2022 Episodic Other connective tissue disease (1 source) Pain in left leg; Translations: [Left leg pain] Onset: 04-29-2023 Episodic Other connective tissue disease (1 source) Other muscle spasm; Translations: [Spasm of muscle] Onset: 04-29-2023 Episodic Other connective tissue disease (1 source) Myalgia, other site; Translations: [Myofascial pain] Onset: 03-18-2023 Episodic Other connective tissue disease (1 source) Arthrodesis status; Translations: [S/P lumbar fusion] Onset: 01-05-2023 Episodic Other nervous system disorders (1 source) Personal history of infections of the central nervous system; Translations: [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] Onset: 03-04-2022 Episodic Other nervous system disorders (1 source) Unsteadiness on feet; Translations: [Gait instability] Onset: 01-13-2023 Episodic Other non-traumatic joint disorders (2 sources) Effusion, left knee; Translations: [EFFUSION LEFT KNEE] Onset: 03-04-2022 Episodic Other non-traumatic joint disorders (1 source) Pain in right hip; Translations: [Bilateral hip pain] Onset: 02-05-2023 Episodic Other non-traumatic joint disorders (1 source) Pain in left hip; Translations: [Bilateral hip pain] Onset: 02-05-2023 Episodic Screening and history of mental health and substance abuse codes (1 source) Personal history of nicotine dependence; Translations: [PERSONAL HISTORY OF NICOTINE DEPEND] Onset: 03-04-2022 Episodic Spondylosis; intervertebral disc disorders; other back problems (20 sources) Lumbar radiculopathy; Translations: [Radiculopathy, lumbar region] Onset: 02-16-2022 Resolved: 03-11-2022 Episodic Suicide and intentional self-inflicted injury (9 sources) Suicidal thoughts; Translations: [Suicidal ideations] Onset: 04-28-2023 03-07-2019 Episodic Results Test Name Value Interpretation Reference Range Facility XR KNEE LEFT 3 VIEWSon 05-23 XR KNEE LEFT 3 VIEWS Interpreted By: Nakul Sosa, STUDY: XR KNEE LEFT 3 VIEWS; 05/23/2024 2:30 pm INDICATION: Signs/Symptoms:PAIN . ACCESSION NUMBER(S): [id number] ORDERING CLINICIAN: NAKUL SOSA FINDINGS: Left knee weightbearing four views. Status post cemented total knee replacement there is shadowing along the tibial component with slight subsidence along the medial aspect. No gross malalignment no signs of fracture dislocation or other bony abnormality Signed by: Nakul Sosa 05/23/2024 4:42 PM Dictation workstation: [id number] [facility] Comment on above: Order Comment: XR kn ee left 3 views weightbearing XR KNEE RIGHT 4+ VIEWSon XR KNEE RIGHT 4+ VIEWS Interpreted By: Nakul Sosa, STUDY: XR KNEE RIGHT 4+ VIEWS; 05/23/2024 2:30 pm INDICATION: Signs/Symptoms:pain . ACCESSION NUMBER(S): [id number] ORDERING CLINICIAN: NAKUL SOSA FINDINGS: Right knee weightbearing four views. Mild medial joint space narrowing moderate knee effusion no signs of fracture dislocation or other bony abnormality Signed by: Nakul Sosa 05/23/2024 4:41 PM Dictation workstation: [id number] [facility] Follow-Upon 08-19-2023 Follow-Up [id number] Porter Maravilla 1985 [facility] Provider Department Center 08/19/2023 Belen-JURGEN SCOTT [facility] Family History Family history unknown: Yes Level of Service:01645 [place] OFFICE/OUTPATIENT ESTABLISHED LOW MDM 20 MIN Reason for Visit and Comments: Pain [136] - L TKA needs revision , L TKA done 1 year ago, c/o l knee ana m and gives out Normal [facility] Office Visiton 08-16-2023 Follow-up visit [id number] Porter Maravilla 1985 Date Provider Department Center 08/16/2023 DAMAR[facility] R[facility]TER [facility] Family History Family history unknown: Yes Level of Service:73689 [place] OFFICE/OUTPATIENT ESTABLISHED MOD MDM 30-39 MIN () Reason for Visit and Comments: Pain [136] Normal [facility] NM bone 3 phaseon 07-12-2023 NM bone 3 phase [facility] Main [place] [id number] Nuclear Medicine Report Signed Patient: Porter Maravilla MR#: [id number] 3 : 1985 Acct:[id number] Age/Sex: 37 / M ADM Date: 07/12/23 Loc: [place] Room: Type: REG CLI Attending Dr: Jelena Gregorio Jr, DO Copies to: Jelena Gregorio Jr, Ke Luciano DO Ordering Provider: Jelena Gregorio Jr, DO Date of Service: 07/12/23 NM/NM bone 3 phase: M25.562 THREE-PHASE BONE SCAN TECHNIQUE: 23.3 mCi of 99M technetium labeled MDP administered intravenously. Flow, immediate and delayed planar imaging performed. Imaging obtained of the knees COMPARISON: Plain film imaging 06/05/22 HISTORY: LEFT knee pain. LEFT knee replacement one year ago. Continued pain. FINDINGS: Hyperemia of the the LEFT knee Increased uptake surrounds the LEFT knee arthroplasty greatest in the femoral component. This is present with immediate and delayed imaging. NM/NM bone 3 phase IMPRESSION: LEFT knee hyperemia. Increased immediate and delayed uptake of the LEFT knee surrounding the hardware greater in the femoral region. This may related to loosening which is greatest in the femoral component. No significant asymmetry is seen to suggest infectious etiology however is not entirely excluded. Impression dictated by: Ke Lai M.D.07/12/2023 2:40 PM Dictation Location: [place] [address] Transcribed By: [facility] 07/12/23 1440 Dictated By: Ke Lai DO 07/12/23 1429 Signed By: 07/12/23 1440 Normal [facility] CNOVbhavana 06-28-2023 CNOV Office Visit (NPRC21) ---- PORTER MARAVILLA ([id number]) 1985 M Date Time Provider Department 06/28/23 3:30 PM FUAD PIERCE NPRC21 During your visit today, we recorded the following information about you: Pulse Blood pressure Weight Height 92/minute 126/86 111.1 kg 1.905 m Fuad Pierce PA-C 06/28/2023 10:11 PM Signed [facility] [place] June 28, 2023 Porter Maravilla is a 37 year old partnered male, not working, only volunteering, who lives with significant other and son (12 yoa) in [place], [place]. He was referred by Shea Plasencia [facility] [place] [id number]. Consultation requested by Luis Angel for an opinion regarding Mr. Porter Maravilla, and my final recommendations will be communicated back to the requesting physician by way of shared medical record or letter via US mail. PDMP website checked and validated. All prescriptions have been APPROPRIATELY filled. No suspicious activity was identified. 06/28/2023 by Fuad Pierce PA-C Chief complaint: left knee pain SUBJECTIVE: Patient presents with complaints of left knee pain. Complains of left hip pain x 1 month. Notes intermittent shooting pain down his left leg from his knee to his toes. States that the pain radiates upwards from his left knee to his groin too. Complains of hamstring pain. States that his severe left knee pain started after having left knee surgery and then a subsequent fall. . Reports that he had a left knee surgery due to a torn meniscus. States that 5 weeks after the knee surgery, he had a fall that increased his pain. Reports 15 falls due to the knee buckling under him. Will use a cane prn Reports that he had a fall in December,, and hurt his right knee - has a torn mensicus Reports numbness or tingling in left toes. States that the pain is constant in his knee. Describes the pain as stabbing or feels like it is snapping Pain severity 8-10/10 Aggravating factors - walking, sitting Does not sleep well due to pain Alleviating factors - elevating the knee, heat Denies any new bowel or bladder dysfunctions Denies any dexterity issues Interventions - currently in PT Medications - taking Lorazepam, NSAID prn, Robaxin prn Has tried gabapentin 300 mg bid - no improvement, flexeril - slept a lot, celebrex Hx of spine surgery - back fusion 2019 - due to ruptured disc - used to play basketball. Hx of left total knee replacement at [facility] by dr Smyth May 2022 - due to torn meniscus Has had lumbar CLARA Oct 2022, Knee injection Feb 2023 - no improvement of pain PMH - migraines - arachnoid cyst, schizoaffective bipolar disorder Spine Red Flag Porter Maravilla has no red flag symptoms. Anesthesia: denies Schizophrenia: schizoaffective bipolar disorder - taking Lamictal, Prozac, Seroquel, lorazepam - denies any history of hallucinations - admits to manic episodes 4-5x month - lasts 1 hour - the longest it lasted was one week : n/a CHF: denies Uncontrolled HTN: denies Recent HI: denies Arrythmias: denies Afib: denies Hyperthyroid: denies Aortic Stenosis: denies Liver Failure: denies Increased ICP: denies Average pain over the last 7 days: 8-06/22 Previous pain treatments: physical therapy, medications, TENS, surgery, injections Functional Limitations: The patient has been unable to work since May. Time spent reclining is 50 percent of hours/day (includes time in bed, recliner, sofa, ottoman, etc.). Wellness: How would you describe your diet: good - eating 2 meals each day. Drinking dr pepper every other day, water How many days a week do you exercise: PT and HEP How many hours do you sleep a night: going to bed around 930 pm and getting up around 445 am. Will wake up 2-3x night due to pain. Emotional Symptoms: include sadness, depression, anxiety, frustration, and irritability The patient has loss of interest, energy, and sleep The patient denies suicidal ideation. Non-medical stresses: Include relationship conflicts and loss of job Family involvement: is appropriate/helpful and supportive Financial Status: partner works Allergies: Reviewed in the EMR Current Medications: Reviewed in the EMR PAST MEDICAL HISTORY Diagnosis Date Arachnoid cyst Bipolar disorder (HCC) Depression Epilepsy (HCC) History of high blood pressure Migraines PAST SURGICAL HISTORY Procedure Laterality Date ARTHROSCOPY KNEE DIAGNOSTIC W/WO SYNOVIAL BX SPX Left PAST SURGICAL HISTORY OF lumbar fusion REMOVAL GALLBLADDER TONSILLECTOMY HX Psychiatric History: Depression and anxiety Social History Tobacco Use Smoking status: Former Types: Cigarettes Smokeless tobacco: Never Vaping Use Vaping Use: current everyday user Substance Use Topics Alcohol use: Not Currently Drug use: (more content not included)... Normal [facility] Francine 04-30-2023 CNPN Telephone (ORTHMN) ---- PORTER MARAVILLA ([id number]) 1985 M Date Time Provider Department 04/30/23 TORIBIO HAMMOND During your visit today, we recorded the following information about you: Toribio Hammond PA-C 04/30/2023 3:51 PM Signed Spoke with the patient told him to continue with his pain management care get his records and then he can see one of our oral surgeon for a third opinion if needed but as dictated by Dr. Macedo and myself. Pain work-up is probably coming from his back. Spine surgery needs to continue with care per the spine center and pain management. Toribio Hammond PA-C Allergies As of Date: 04/30/2023 Noted Allergy Reaction PENICILLINS 07/17/2021 7 - Swelling TORADOL (KETOROLAC) 07/17/2021 14 - Other: See Comments Comments: seizure TRAMADOL 07/17/2021 1 - Mental Status Change Date Reviewed: 04/26/2023 Reviewed by: Loida Stuart Cast Tech - Fully Assessed Reason for Visit: Patient Question [9284] Cmt: Pain Prescriptions as of 05/03/2023 - methocarbamol (ROBAXIN) 750 mg tablet TAKE 1 TABLET BY MOUTH 4 TIMES A DAY NEEDED - diclofenac (VOLTAREN) 1 % topical gel Apply judiciously 2-3 times per day left knee - read package insert for max daily dosing instructions - gabapentin (NEURONTIN) 300 mg capsule Take 1 capsule by mouth three times daily for 90 days. - atomoxetine (STRATTERA) 60 mg capsule Take 60 mg by mouth once daily. - FLUoxetine (PROZAC) 40 mg capsule Take 80 mg by mouth once daily. - LORazepam (ATIVAN) 0.5 mg Take 0.5 mg by mouth three times daily. - prazosin (MINIPRESS) 1 mg cap Take 1 mg by mouth daily at bedtime. - celecoxib (CELEBREX) 200 mg capsule 200 mg once daily. - hydrOXYzine HCl (ATARAX) 25 mg tablet 25 mg three times daily as needed. - lamoTRIgine (LAMICTAL) 100 mg tablet 100 mg twice daily. - lithium carbonate (ESKALITH) 300 mg capsule 300 mg three times daily with meals. - QUEtiapine (SEROQUEL) 200 mg tablet Take 200 mg by mouth. - traZODone (DESYREL) 50 mg tablet 100 mg daily at bedtime. - QUEtiapine (SEROQUEL) 400 mg tablet Take 800 mg by mouth daily at bedtime. - ibuprofen (MOTRIN) 800 mg tablet Take 800 mg by mouth every 8 hours as needed. - pantoprazole sodium (PROTONIX ORAL) Take by mouth as needed. Problem List As Of Date 04/30/2023 Noted Resolved History of left knee replacement [Z96.652] 03/22/2023 Bilateral chronic knee pain [M25.561, M25.562, *03/22/2023 Encounter Status:Closed by TORIBIO HAMMOND on 05/03/23 [facility] PORTER MARAVILLA ([id number]) 1985 M Date Time Provider Department 04/29/23 [facility] During your visit today, we recorded the following information about you: Sarah Canela RN 04/29/2023 11:55 AM Signed Received: Today Kelle Gordon DO Lynch, Megan, SUSU.SUPER[employer]; Sarah Canela, RN Thank you for sending. He did not check in for his visit today/no answer. Hope he is ok. Sarah, could you call and see if you can get in touch with him and see if he would like to reschedule his VV with me? Sarah Canela, RN 04/29/2023 11:55 AM Signed Spoke to patient he states did go to ER yesterday and spoke to counselor. Had a lot going on. Jonelle missed the appointment just a lot. He does want to schedule another VV. He is seeing counselor tomorrow. What is a good date for you? You have an EST on 05/31 at 440 can I change that to VV? That is the next open slot. I have put a temporary hold on that date for now. Sarah Canela RN 04/30/2023 7:47 AM Addendum Spoke to patient gave him date of 05/31 at 440 for VV. I did let patient know per Dr. Gordon since it is at end of day that she may be delayed, but will see him then. He verbalized understanding. Hi, Please schedule the following appointment. Patient: Porter Maravilla Provider:Dr. Gordon Date: 05/31/2023 Time: 440 [facility] schedule Visit Type: Virtual (visualized on screen) Established Visit Follow up Imaging needed prior to schedule: No Patient is aware: Yes Thank you! Sarah Canela RN Could you please add him to cancellation list also. Thank you. Okayed by Dr. Gordon to change to VV. Allergies As of Date: 04/29/2023 Noted Allergy Reaction PENICILLINS 07/17/2021 7 - Swelling TORADOL (KETOROLAC) 07/17/2021 14 - Other: See Comments Comments: seizure TRAMADOL 07/17/2021 1 - Mental Status Change Date Reviewed: 04/26/2023 Reviewed by: Loida Stuart Cast Tech - Fully Assessed Reason for Visit: Appointment [186] Prescriptions as of 04/30/2023 - methocarbamol (ROBAXIN) 750 mg tablet TAKE 1 TABLET BY MOUTH 4 TIMES A DAY NEEDED - diclofenac (VOLTAREN) 1 % topical gel Apply judiciously 2-3 times per day left knee - read package insert for max daily dosing instructions - gabapentin (NEURONTIN) 300 mg capsule Take 1 capsule by mouth three times daily for 90 days. - atomoxetine (STRATTERA) 60 mg capsule Take 60 mg by mouth once daily. - FLUoxetine (PROZAC) 40 mg capsule Take 80 mg by mouth once daily. - LORazepam (ATIVAN) 0.5 mg Take 0.5 mg by mouth three times daily. - prazosin (MINIPRESS) 1 mg cap Take 1 mg by mouth daily at bedtime. - celecoxib (CELEBREX) 200 mg capsule 200 mg once daily. - hydrOXYzine HCl (ATARAX) 25 mg tablet 25 mg three times daily as needed. - lamoTRIgine (LAMICTAL) 100 mg tablet 100 mg twice daily. - lithium carbonate (ESKALITH) 300 mg capsule 300 mg three times daily with meals. - QUEtiapine (SEROQUEL) 200 mg tablet Take 200 mg by mouth. - traZODone (DESYREL) 50 mg tablet 100 mg daily at bedtime. - QUEtiapine (SEROQUEL) 400 mg tablet Take 800 mg by mouth daily at bedtime. - ibuprofen (MOTRIN) 800 mg tablet Take 800 mg by mouth every 8 hours as needed. - pantoprazole sodium (PROTONIX ORAL) Take by mouth as needed. Problem List As Of Date 04/29/2023 Noted Resolved History of left knee replacement [Z96.652] 03/22/2023 Bilateral chronic knee pain [M25.561, M25.562, *03/22/2023 Encounter Status:Closed by SARAH CANELA on 04/30/23 Normal [facility] Progress Noteson 04-28-2023 Property Consultant Authentication Interface Message Text EMERGENCY TRIAGE, TREAT AND TRANSPORT (ET3) DOCUMENTATION OF TELEHEALTH VISIT Date / Time: 04/28/2023 / Name: Porter Maravilla : 1985 SSN: (Not on file) EMS Agency: [facility] [] Verbal consent obtained [x] Implied consent - patient with potential emergency medical condition requiring assessment of capacity to refuse treatment and/or transport VITAL SIGNS: see flowsheet documentation Reason for Telehealth Visit: No chief complaint on file. suicidal thoughts History of Present Illness: He was speaking with his psych counselor at [facility] and said he wants to Additional pertinent PMHx, SocHx, FamHx: Review of Systems: Denies the following: chest pain Exam: General: Awake, no distress ENT: normocephalic, atraumatic Pulmonary: No respiratory distress Cardiovascular: Well perfused Neurologic: Oriented to person, place, time and events. Moving all extremities equally. Psychiatric: Appropriate. Good insight and judgement. Medical Decision Making: Send to ED for eval, pink slip if needed Disposition Supported by Telehealth Assessment: ET3 transport decisions: Transport to hospital EMS Disposition Reported: Same ET3 Encounter Completed by: Salvador Harris MD Normal [facility] CNOVon 04-26-2023 CNOV Office Visit (ORTHMN) ---- PORTER MARAVILLA ([id number]) 1985 M Date Time Provider Department 04/26/23 12:15 PM VIVIANA MACEDO ORTHMN During your visit today, we recorded the following information about you: Weight Height 109 kg 1.905 m Viviana Macedo MD 04/26/2023 3:15 PM Signed Chief Complaint: No chief complaint on file. HPI: Patient is 37 year old male here for second opinion on left knee 37-year-old male presents for evaluation of left lower extremity pain status post left total knee replacement on [facility] by Dr. Jelena Smyth May 2022. Patient claims since the surgery the knee has been very painful ambulates with a valgus thrust and with every step it is painful. He is also status post back fusion done in 2019. He has been evaluated by pain management. He was worked up extensively in the [place] area had labs done back x-rays CT scan of the back but no one could come up with a reason why he has been having pain he is here for second opinion regarding his left knee. He was evaluated by Toribio Hammond weeks ago. Sed rate CRP and infectious work-up for P JI was negative. Supporting Subjective Information Below: Estimated body mass index is 30 kg/m? as calculated from the following: Height as of 03/18/23: 190.5 cm (6' 3 ). Weight as of 03/18/23: 108.9 kg (240 lb). Past Medical History: PAST MEDICAL HISTORY Diagnosis Date Arachnoid cyst Bipolar disorder (HCC) Depression Epilepsy (HCC) History of high blood pressure Migraines Past Surgical History: PAST SURGICAL HISTORY Procedure Laterality Date ARTHROSCOPY KNEE DIAGNOSTIC W/WO SYNOVIAL BX SPX Left PAST SURGICAL HISTORY OF lumbar fusion REMOVAL GALLBLADDER TONSILLECTOMY HX Family History: FAMILY HISTORY Problem Relation Age of Onset Diabetes Maternal Grandfather Hypertension Maternal Grandfather No history of: Bleeding, Clotting , and Anesthesia problems Social History: Social History Tobacco Use Smoking status: Former Types: Cigarettes Smokeless tobacco: Never Vaping Use Vaping Use: current everyday user Substance Use Topics Alcohol use: Not Currently Drug use: Never Current Smoker:Yes, Protocol: Medications: Current Outpatient Medications Medication Sig methocarbamol (ROBAXIN) 750 mg tablet TAKE 1 TABLET BY MOUTH 4 TIMES A DAY NEEDED diclofenac (VOLTAREN) 1 % topical gel Apply judiciously 2-3 times per day left knee - read package insert for max daily dosing instructions gabapentin (NEURONTIN) 300 mg capsule Take 1 capsule by mouth three times daily for 90 days. atomoxetine (STRATTERA) 60 mg capsule Take 60 mg by mouth once daily. FLUoxetine (PROZAC) 40 mg capsule Take 80 mg by mouth once daily. LORazepam (ATIVAN) 0.5 mg Take 0.5 mg by mouth three times daily. prazosin (MINIPRESS) 1 mg cap Take 1 mg by mouth daily at bedtime. celecoxib (CELEBREX) 200 mg capsule 200 mg once daily. hydrOXYzine HCl (ATARAX) 25 mg tablet 25 mg three times daily as needed. lamoTRIgine (LAMICTAL) 100 mg tablet 100 mg twice daily. lithium carbonate (ESKALITH) 300 mg capsule 300 mg three times daily with meals. QUEtiapine (SEROQUEL) 200 mg tablet Take 200 mg by mouth. traZODone (DESYREL) 50 mg tablet 100 mg daily at bedtime. QUEtiapine (SEROQUEL) 400 mg tablet Take 800 mg by mouth daily at bedtime. ibuprofen (MOTRIN) 800 mg tablet Take 800 mg by mouth every 8 hours as needed. pantoprazole sodium (PROTONIX ORAL) Take by mouth as needed. No current facility-administer ed medications for this visit. Allergies: Penicillins, Toradol [Ketorolac], and Tramadol REVIEW OF SYSTEMS: Patient reports no change in past medical AND surgical history, medications, allergies, social history, family history and review of systems REFERRING PHYSICIANS: was referred to me for consultation and further care by the following physician. This consultation note will be sent to the following physician by either mail or electronic medical record. No referring provider defined for this encounter. Physical Exam: Physical Exam: General: No acute distress, alert and oriented x3 and Awake and alert Left Skin: Incision well healed without any evidence of infection. No erythema, drainage or expressible discharge Vascular: intact Neuro: intact Musculoskeletal: Patient walks with a distinctly abnormal gait pattern favoring the right lower extremity. He has a reduced aurora and stride length. He favors the right leg throughout the all phases of gait. The patient has physiologic valgus alignment of his left knee. There is a well-healed midline incision over the anterior aspect of the left knee. He has a trace effusion in the left knee. Quadriceps is atrophic on the left. The knee is stable to varus valgus stress. There is no sign of ligamentous instability. Quadriceps is slightly weak. I personally reviewed (more content not included)... Normal [facility] Francine 03-22-2023 CNPN Telephone (PAINMN) ---- PORTER MARAVILLA ([id number]) 1985 M Date Time Provider Department 03/22/23 DESTINEY GARCIA During your visit today, we recorded the following information about you: Cecily Rivrea 03/22/2023 4:09 PM Signed Demographic page, TENS order and office visit notes faxed to [facility]. Cecily Rivera Allergies As of Date: 03/22/2023 Noted Allergy Reaction PENICILLINS 07/17/2021 7 - Swelling TORADOL (KETOROLAC) 07/17/2021 14 - Other: See Comments Comments: seizure TRAMADOL 07/17/2021 1 - Mental Status Change Date Reviewed: 03/18/2023 Reviewed by: Katie Salinas LPN - Fully Assessed Reason for Visit: Nurse Triage Call [185] Cmt: TENS unit information Prescriptions as of 03/22/2023 - diclofenac (VOLTAREN) 1 % topical gel Apply judiciously 2-3 times per day left knee - read package insert for max daily dosing instructions - baclofen (LIORESAL) 10 mg tablet Take 1 tablet by mouth three times daily as needed. - gabapentin (NEURONTIN) 300 mg capsule Take 1 capsule by mouth three times daily for 90 days. - atomoxetine (STRATTERA) 60 mg capsule Take 60 mg by mouth once daily. - FLUoxetine (PROZAC) 40 mg capsule Take 80 mg by mouth once daily. - LORazepam (ATIVAN) 0.5 mg Take 0.5 mg by mouth three times daily. - prazosin (MINIPRESS) 1 mg cap Take 1 mg by mouth daily at bedtime. - celecoxib (CELEBREX) 200 mg capsule 200 mg once daily. - hydrOXYzine HCl (ATARAX) 25 mg tablet 25 mg three times daily as needed. - lamoTRIgine (LAMICTAL) 100 mg tablet 100 mg twice daily. - lithium carbonate (ESKALITH) 300 mg capsule 300 mg three times daily with meals. - QUEtiapine (SEROQUEL) 200 mg tablet Take 200 mg by mouth. - traZODone (DESYREL) 50 mg tablet 100 mg daily at bedtime. - QUEtiapine (SEROQUEL) 400 mg tablet Take 800 mg by mouth daily at bedtime. - ibuprofen (MOTRIN) 800 mg tablet Take 800 mg by mouth every 8 hours as needed. - pantoprazole sodium (PROTONIX ORAL) Take by mouth as needed. Problem List As Of Date 03/22/2023 Noted Resolved History of left knee replacement [Z96.652] 03/22/2023 Bilateral chronic knee pain [M25.561, M25.562, *03/22/2023 Encounter Status:Closed by CECILY RIVERA on 03/22/23 [facility] CNOVbhavana 03-18-2023 CNOV Office Visit (PAINMN) ---- PORTER MARAVILLA ([id number]) 1985 Date Time Provider Department 03/18/23 3:40 PM DESTINEY GARCIA During your visit today, we recorded the following information about you: Temperature Pulse Respiration Blood pressure 98.1 degrees 87/minute 16/minute 146/85 Weight Height 108.9 kg 1.905 m Katie Salinas LPN 03/18/2023 3:30 PM Signed Patient accompanied by: self 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 yes Destiney Garcia MD 03/22/2023 10:58 AM Signed [facility] Department Office Visit Porter Maravilla is referred by NATALIIA Ward (spine). Unaccompanied Room: 20 Chief Complaint: both knees L>>R HISTORY OF PRESENT ILLNESS Mr. Porter Maravilla presents to [facility] for the evaluation of L>R knee pain s/p LTKR 06/09/22 pain. S/p genicular nerve blocks left by Trey Wright MD on 02/11/23 from which he had no relief. Fell in December 2022 and tore meniscus right knee. Reports has buckled since the knee replacement. S/p right knee steroid injection x 1 about a month ago. Not helping. No surgery on right side. Mild tear right meniscus. Per note from Mr. Stephany PA-C 03/05/23: RECOMMENDATION / PLAN: We discussed the potential utilization of pursuing laboratory analysis to aid our diagnosis and treatment plan and ordered CBC , erythrocyte sedimentation rate, and C-reative protein. Patient was sent to pain management. And told to get all his records from [facility] CT scan on a disc along with the report of his lumbar spine operative report of the left knee replacement. On the lumbar spine surgery. Follow up: With orthopedic joint surgeon to review the case for left painful total knee replacement. Films prior to visit: If this regimen does not provide pain relief, we will investigate further with advanced imaging. Onset: 3 years - worse since knee replacement Precipitating event: Location: left knee Radiation: no Quality: feels as though the leg is going to snap Progression: Severity: 9 on a scale of 0-10. Frequency: constant Alleviating factors: elevation, but pain eventually goes into the hip and feels stabbing and cramping; ice; more heat than ice Exacerbating factors: walking Symptoms interfere with: everything. Reports he has been on suicide watch b/c pain and limited lifestyle Patient goal(s) for visit: options, including surgery Denies bladder/bowel incontinence, progressive neurologic deficits, fever/chills, or other concerning red flag symptoms or signs. Review of Systems:The remainder of the ROS was negative. 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 HISTORY FROM THE ELECTRONIC MEDICAL RECORD Allergies ALLERGIES Allergen Reactions Penicillins Swelling Toradol [Ketorolac] Other: See Comments seizure Tramadol Mental Status Change Current Medications baclofen (LIORESAL) 10 mg tablet Take 1 tablet by mouth three times daily as needed. gabapentin (NEURONTIN) 300 mg capsule Take 1 capsule by mouth three times daily for 90 days. atomoxetine (STRATTERA) 60 mg capsule Take 60 mg by mouth once daily. FLUoxetine (PROZAC) 40 mg capsule Take 80 mg by mouth once daily. LORazepam (ATIVAN) 0.5 mg Take 0.5 mg by mouth three times daily. prazosin (MINIPRESS) 1 mg cap Take 1 mg by mouth daily at bedtime. celecoxib (CELEBREX) 200 mg capsule 200 mg once daily. hydrOXYzine HCl (ATARAX) 25 mg tablet 25 mg three times daily as needed. lamoTRIgine (LAMICTAL) 100 mg tablet 100 mg twice daily. lithium carbonate (ESKALITH) 300 mg capsule 300 mg three times daily with meals. QUEtiapine (SEROQUEL) 200 mg tablet Take 200 mg by mouth. traZODone (DESYREL) 50 mg tablet 100 mg daily at bedtime. QUEtiapine (SEROQUEL) 400 mg tablet Take 800 mg by mouth daily at bedtime. ibuprofen (MOTRIN) 800 mg tablet Take 800 mg by mouth every 8 hours as needed. pantoprazole sodium (PROTONIX ORAL) Take by mouth as needed. Past Medical History PAST MEDICAL HISTORY Diagnosis Date Arachnoid cyst Bipolar disorder (HCC) Depression Epilepsy (HCC) History of high blood pressure Migraines Past Surgical History PAST SURGICAL HISTORY Procedure Laterality Date A (more content not included)... Normal [facility] CNPNon 03-15-2023 CNPN Telephone (ORTHMN) ---- PORTER MARAVILLA ([id number]) 1985 M Date Time Provider Department 03/15/23 TORIBIO HAMMOND ORTHMIREYA During your visit today, we recorded the following information about you: Toribio Hammond PA-C 03/15/2023 2:33 PM Signed This check on the patient no answer on his phone Labs are normal. Toribio Hammond PA-C Allergies As of Date: 03/15/2023 Noted Allergy Reaction PENICILLINS 07/17/2021 7 - Swelling TORADOL (KETOROLAC) 07/17/2021 14 - Other: See Comments Comments: seizure TRAMADOL 07/17/2021 1 - Mental Status Change Date Reviewed: 03/05/2023 Reviewed by: Latesha Dowd MA - Fully Assessed Reason for Visit: Patient Question [6907] Results [95] Cmt: labs Prescriptions as of 03/15/2023 - baclofen (LIORESAL) 10 mg tablet Take 1 tablet by mouth three times daily as needed. - gabapentin (NEURONTIN) 300 mg capsule Take 1 capsule by mouth three times daily for 90 days. - atomoxetine (STRATTERA) 60 mg capsule Take 60 mg by mouth once daily. - FLUoxetine (PROZAC) 40 mg capsule Take 80 mg by mouth once daily. - LORazepam (ATIVAN) 0.5 mg Take 0.5 mg by mouth three times daily. - prazosin (MINIPRESS) 1 mg cap Take 1 mg by mouth daily at bedtime. - celecoxib (CELEBREX) 200 mg capsule 200 mg once daily. - hydrOXYzine HCl (ATARAX) 25 mg tablet 25 mg three times daily as needed. - lamoTRIgine (LAMICTAL) 100 mg tablet 100 mg twice daily. - lithium carbonate (ESKALITH) 300 mg capsule 300 mg three times daily with meals. - QUEtiapine (SEROQUEL) 200 mg tablet Take 200 mg by mouth. - traZODone (DESYREL) 50 mg tablet 100 mg daily at bedtime. - QUEtiapine (SEROQUEL) 400 mg tablet Take 800 mg by mouth daily at bedtime. - ibuprofen (MOTRIN) 800 mg tablet Take 800 mg by mouth every 8 hours as needed. - pantoprazole sodium (PROTONIX ORAL) Take by mouth as needed. Problem List As Of Date: 03/15/2023 (None) Encounter Status:Closed by TORIBIO HAMMOND on 03/15/23 Normal [facility] C-REACTIVE PROTEIN (CRP)on 0 03-05-2023 CRP [Mass/Vol] <0.9 mg/dL [facility] CBC W Auto Differential pane l (Bld)on 03-05-2023 Basophils (Bld) [#/Vol] 0.05 10*3/uL Normal <0.11 [facility] Comment on above: Order Comment: Speci men Type: BLOOD SPECIMEN Ordering Facility: [facility] Address: [address] [place] [address] Performed By: #### 5 7021-8, 7 #### [facility] CLIA [id number] [address] [place] [address] [place] Basophils/100 WBC (Bld) 0.8 % Normal [facility] Comment on above: Order Comment: Speci men Type: BLOOD SPECIMEN Ordering Facility: [facility] Address: [address] [place] [address] Performed By: #### 5 7021-8, 4537-03 #### [facility] CLIA [id number] [address] [place] [address] [place] Differential cell count method Nom (Bld) Auto Normal [facility] Comment on above: Order Comment: Speci men Type: BLOOD SPECIMEN Ordering Facility: [facility] Address: [address] Performed By: #### 5 7021-8, 4536-7 #### [facility] CLIA [id number] [address] [place] [address] [place] Eosinophils (Bld) [#/Vol] 0.23 10*3/uL Normal <0.46 [facility] Comment on above: Order Comment: Speci men Type: BLOOD SPECIMEN Ordering Facility: [facility] Address: [address] Performed By: #### 5 7021-8, 4536-7 #### [facility] CLIA [id number] [address] [place] [address] [place] Eosinophils/100 WBC (Bld) 3.8 % Normal [facility] Comment on above: Order Comment: Speci men Type: BLOOD SPECIMEN Ordering Facility: [facility] Address: [address] [place], [place] [id number] Performed By: #### 5 7021-8, 4536-7 #### [facility] CLIA [id number] [address] [place] [address] [place] Erythrocyte distribution width (RBC) [Ratio] 13.6 % Normal 11.5-15.0 [facility] Comment on above: Order Comment: Speci men Type: BLOOD SPECIMEN Ordering Facility: [facility] Address: [address] [place], [place] [id number] Performed By: #### 5 7021-8, 4536-7 #### [facility] CLIA [id number] [address] [place] [address] [place] Hematocrit (Bld) [Volume fraction] 41.1 % Normal 39.0-51.0 [facility] Comment on above: Order Comment: Speci men Type: BLOOD SPECIMEN Ordering Facility: [facility] Address: [address] [place], [place] [id number] Performed By: #### 5 7021-8, 7-7 #### [facility] CLIA [id number] [address] [place] [address] [place] Hemoglobin (Bld) [Mass/Vol] 13.6 g/dL Normal 13.0-17.0 [facility] Comment on above: Order Comment: Speci men Type: BLOOD SPECIMEN Ordering Facility: [facility] Address: [address] Performed By: #### 5 7021-8, 4536-7 #### [facility] CLIA [id number] [address] [place] [address] [place] Immature granulocytes (Bld) [#/Vol] 10*3/uL Normal <0.10 [facility] Comment on above: Order Comment: Speci men Type: BLOOD SPECIMEN Ordering Facility: [facility] Address: [address] [place], [place] [id number] Performed By: #### 5 7021-8, 4536-7 #### [facility] CLIA [id number] [address] [place] [address] [place] Immature granulocytes/100 WBC (Bld) 0.2 % Normal [facility] Comment on above: Order Comment: Speci men Type: BLOOD SPECIMEN Ordering Facility: [facility] Address: [address] [place], [place] [id number] Performed By: #### 5 7021-8, 7 #### [facility] CLIA [id number] [address] [place] [address] [place] Lymphocytes (Bld) [#/Vol] 3.05 10*3/uL Normal 1.00-4.00 [facility] Comment on above: Order Comment: Speci men Type: BLOOD SPECIMEN Ordering Facility: [facility] Address: [address] [place], [place] [id number] Performed By: #### 5 7021-8, 7-7 #### [facility] CLIA [id number] [address] [place] [address] [place] Lymphocytes/100 WBC (Bld) 50.4 % Normal [facility] Comment on above: Order Comment: Speci men Type: BLOOD SPECIMEN Ordering Facility: [facility] Address: [address] [place] [address] Performed By: #### 5 7021-8, 4536-7 #### [facility] CLIA [id number] [facility] [place] [address] [place] MCH (RBC) [Entitic mass] 28.2 pg Normal 26.0-34.0 [facility] Comment on above: Order Comment: Speci men Type: BLOOD SPECIMEN Ordering Facility: [facility] Address: [address] [place] [address] Performed By: #### 5 7021-8, 4536-7 #### [facility] CLIA [id number] [address] [place] [address] [place] MCHC (RBC) [Mass/Vol] 33.1 g/dL Normal 30.5-36.0 [facility] Comment on above: Order Comment: Speci men Type: BLOOD SPECIMEN Ordering Facility: [facility] Address: [address] [place], [place] [id number] Performed By: #### 5 7021-8, 4536-7 #### [facility] CLIA [id number] [address] [place] [address] [place] MCV (RBC) [Entitic vol] 85.1 fL Normal 80.0-100.0 [facility] Comment on above: Order Comment: Speci men Type: BLOOD SPECIMEN Ordering Facility: [facility] Address: [address] [place] [id number] Performed By: #### 5 7021-8, 4536-7 #### [facility] CLIA [id number] [id number] [address] [place] Monocytes (Bld) [#/Vol] 0.54 10*3/uL Normal <0.87 [facility] Comment on above: Order Comment: Speci men Type: BLOOD SPECIMEN Ordering Facility: [facility] Address: [address] [place] [address] Performed By: #### 5 7021-8, 4536-7 #### [facility] CLIA [id number] [address] [place] [address] [place] Monocytes/100 WBC (Bld) 8.9 % Normal [facility] Comment on above: Order Comment: Speci men Type: BLOOD SPECIMEN Ordering Facility: [facility] Address: [address] [place] [id number] Performed By: #### 5 7021-8, 4536-7 #### [facility] CLIA [id number] [address] [place] [address] [place] Neutrophils (Bld) [#/Vol] 2.17 10*3/uL Normal 1.45-7.50 [facility] Comment on above: Order Comment: Speci men Type: BLOOD SPECIMEN Ordering Facility: [facility] Address: [address] [place] [address] Performed By: #### 5 7021-8, 4536-7 #### [facility] CLIA [id number] [address] [place] [address] [place] Neutrophils/100 WBC (Bld) 35.9 % Normal [facility] Comment on above: Order Comment: Speci men Type: BLOOD SPECIMEN Ordering Facility: [facility] Address: [address] [place] [address] Performed By: #### 5 7021-8, 4536-7 #### [facility] CLIA [id number] [address] [place] [address] [place] Nucleated RBC (Bld) [#/Vol] 10*3/uL Normal <0.01 [facility] Comment on above: Order Comment: Speci men Type: BLOOD SPECIMEN Ordering Facility: [facility] Address: [address] [place], [place] [id number] Performed By: #### 5 7021-8, 4537-7 #### [facility] CLIA [id number] [address] [place] [address] [place] Nucleated RBC/100 WBC (Bld) [Ratio] 0.0 /100 WBC Normal [facility] Comment on above: Order Comment: Speci men Type: BLOOD SPECIMEN Ordering Facility: [facility] Address: [address] [place] [id number] Performed By: #### 5 7021-8, 4537-7 #### [facility] CLIA [id number] [address] [place] [address] [place] Platelet mean volume (Bld) [Entitic vol] 9.7 fL Normal 9.0-12.7 [facility] Comment on above: Order Comment: Speci men Type: BLOOD SPECIMEN Ordering Facility: [facility] Address: [address] [place], [place] [id number] Performed By: #### 5 7021-8, 453-7 #### [facility] CLIA [id number] [address] [place] [address] [place] Platelets (Bld) [#/Vol] 205 10*3/uL Normal 150-400 [facility] Comment on above: Order Comment: Speci men Type: BLOOD SPECIMEN Ordering Facility: [facility] Address: [address] [place], [place] [id number] Performed By: #### 5 7021-8, 4537-7 #### [facility] CLIA [id number] [address] [place] [address] [place] RBC (Bld) [#/Vol] 4.83 10*6/uL Normal 4.20-6.00 [facility] Comment on above: Order Comment: Speci men Type: BLOOD SPECIMEN Ordering Facility: [facility] Address: [address] [place] [address] Performed By: #### 5 7021-8, 4537-7 #### [facility] CLIA [id number] [address] [place] WBC (Bld) [#/Vol] 6.05 10*3/uL Normal 3.70-11.00 [facility] Comment on above: Order Comment: Speci men Type: BLOOD SPECIMEN Ordering Facility: [facility] Address: [address] [place] [address] Performed By: #### 5 7021-8, 4537-7 #### [facility] CLIA [id number] [facility] [address] [place] Basophils (Bld) [#/Vol] 0.05 10*3/uL <0.11 k/uL [facility] Basophils/100 WBC (Bld) 0.8 % [facility] Differential cell count method Nom (Bld) Auto [facility] Eosinophils (Bld) [#/Vol] 0.23 10*3/uL <0.46 k/uL [facility] Eosinophils/100 WBC (Bld) 3.8 % [facility] Erythrocyte distribution width (RBC) [Ratio] 13.6 % 11.5 - 15.0 % [facility] Hematocrit (Bld) [Volume fraction] 41.1 % 39.0 - 51.0 % [facility] Hemoglobin (Bld) [Mass/Vol] 13.6 g/dL 13.0 - 17.0 g/dL [facility] Immature granulocytes (Bld) [#/Vol] <0.10 k/uL [facility] Immature granulocytes/100 WBC (Bld) 0.2 % [facility] Lymphocytes (Bld) [#/Vol] 3.05 10*3/uL 1.00 - 4.00 k/uL [facility] Lymphocytes/100 WBC (Bld) 50.4 % [facility] MCH (RBC) [Entitic mass] 28.2 pg 26.0 - 34.0 pg [facility] MCHC (RBC) [Mass/Vol] 33.1 g/dL 30.5 - 36.0 g/dL [facility] MCV (RBC) [Entitic vol] 85.1 fL 80.0 - 100.0 fL [facility] Monocytes (Bld) [#/Vol] 0.54 10*3/uL <0.87 k/uL [facility] Monocytes/100 WBC (Bld) 8.9 % [facility] Neutrophils (Bld) [#/Vol] 2.17 10*3/uL 1.45 - 7.50 k/uL [facility] Neutrophils/100 WBC (Bld) 35.9 % [facility] Nucleated RBC (Bld) [#/Vol] <0.01 k/uL [facility] Nucleated RBC/100 WBC (Bld) [Ratio] 0.0 /100 WBC [facility] Platelet mean volume (Bld) [Entitic vol] 9.7 fL 9.0 - 12.7 fL [facility] Platelets (Bld) [#/Vol] 205 10*3/uL 150 - 400 k/uL [facility] RBC (Bld) [#/Vol] 4.83 10*6/uL 4.20 - 6.0 0 m/uL [facility] WBC (Bld) [#/Vol] 6.05 10*3/uL 3.70 - 11. 00 k/uL [facility] CNOVon 03-05-2023 CNOV Office Visit (ORTHMN) ---- PORTER MARAVILLA ([id number]) 1985 M Date Time Provider Department 03/05/23 9:40 AM TORIBIO HAMMOND During your visit today, we recorded the following information about you: Toribio Hammond PA-C 03/05/2023 12:29 PM Signed SERVICE DATE: March 05, 2023 PCP: Андрей Goode DO Consult requested by Dr Medhat Goode DO for an opinion regarding chief complaint as stated below. My final impression and recommendations will be communicated back to the requesting physician by way of the shared medical record or letter via US mail. Subjective Patient ID: Porter is a 37 year old male. Chief Complaint: No chief complaint on file. PAIN EVALUATION 03/05/2023 1003 Pain Level: 10 Pain Location: Knee-Left radiating up in to hip and pain in the right knee also Description: Radiating feels like knee is going to snap Duration Amount of Time: 3 Duration Units: Years knee replacement last may Intervention/Comfor t measure: Heat;Medication elevating and stopped with meds because it was excessive 37-year-old male presents for evaluation of left lower extremity pain status post left total knee replacement on [facility] by Dr. Jelena Smyth May 2022. Patient claims since the surgery the knee has been very painful ambulates with a valgus thrust and with every step it is painful. He is also status post back fusion done in 2019 and has not followed with recovered from that also. He was worked up extensively in the [place] area had labs done back x-rays CT scan of the back but no one could come up with a reason why he has been having pain he is here for second opinion. Examination was very difficult because he was spastic skin is hypersensitive to touch and around the knee back exam was also just very hard to elicit any kind of good exam. I told him we will get him into see pain management for the chronic pain but in the meanwhile we will repeat the labs CBC ESR CRP. He was told to get his reports of the surgery and other treatments from the hospital CAT scan of the lumbar spine on this and with the report and then we will get him into see one of our joint surgeons if there is any discrepancy in the knee case will be reviewed with our joint surgeon. With respect to his back status post surgery lumbar spine he will need to be seen by our spine center. In the meanwhile he was sent to pain management as stated above. TREATMENTS PRIOR TO INITIAL CONSULT: Left total knee replacement surgery; Date: 2021 at [facility]. Review of Systems Constitutional: Negative. HENT: Negative. Respiratory: Negative. Cardiovascular: Negative. Gastrointestinal: Negative. Endocrine: Negative. Skin: Negative. Neurological: Negative. Hematological: Negative. Musculoskeletal: Positive for joint swelling. There is no problem list on file for this patient. PAST MEDICAL HISTORY Diagnosis Date Arachnoid cyst Bipolar disorder (HCC) Depression Epilepsy (HCC) History of high blood pressure Migraines PAST SURGICAL HISTORY Procedure Laterality Date ARTHROSCOPY KNEE DIAGNOSTIC W/WO SYNOVIAL BX SPX Left PAST SURGICAL HISTORY OF lumbar fusion REMOVAL GALLBLADDER TONSILLECTOMY HX FAMILY HISTORY Problem Relation Age of Onset Diabetes Maternal Grandfather Hypertension Maternal Grandfather Social History Tobacco Use Smoking status: Former Types: Cigarettes Smokeless tobacco: Never Vaping Use Vaping Use: current everyday user Substance Use Topics Alcohol use: Not Currently Drug use: Never ALLERGIES Allergen Reactions Penicillins Swelling Toradol [Ketorolac] Other: See Comments seizure Tramadol Mental Status Change MEDICATIONS: baclofen (LIORESAL) 10 mg tablet Take 1 tablet by mouth three times daily as needed. gabapentin (NEURONTIN) 300 mg capsule Take 1 capsule by mouth three times daily for 90 days. atomoxetine (STRATTERA) 60 mg capsule Take 60 mg by mouth once daily. FLUoxetine (PROZAC) 40 mg capsule Take 80 mg by mouth once daily. LORazepam (ATIVAN) 0.5 mg Take 0.5 mg by mouth three times daily. prazosin (MINIPRESS) 1 mg cap Take 1 mg by mouth daily at bedtime. celecoxib (CELEBREX) 200 mg capsule 200 mg once daily. hydrOXYzine HCl (ATARAX) 25 mg tablet 25 mg three times daily as needed. lamoTRIgine (LAMICTAL) 100 mg tablet 100 mg twice daily. lithium carbonate (ESKALITH) 300 mg capsule 300 mg three times daily with meals. QUEtiapine (SEROQUEL) 200 mg tablet Take 200 mg by mouth. traZODone (DESYREL) 50 mg tablet 100 mg daily at bedtime. QUEtiapine (SEROQUEL) 400 mg tablet Take 800 mg by mouth daily at bedtime. ibuprofen (MOTRIN) 800 mg tablet Take 800 mg by mouth every 8 hours as needed. pantoprazole sodium (PROTONIX ORAL) Take by mouth as needed. Allergies, medications, past surgical history, family history and past me (more content not included)... Normal [facility] CRP [Mass/Vol] mg/L Normal <0.9 [facility] Comment on above: Order Comment: Speci men Type: BLOOD SPECIMEN Ordering Facility: [facility] Address: [address] [place] [id number] Performed By: #### 5 7021-8, 4537-7 #### [facility] CLIA [id number] [address] [place] [address] [place] ESR Westergren method (Bld) [Velocity]on 03-05-2023 ESR (Bld) [Velocity] 2 mm/h 0 - 15 mm/hr Cl [facility] ESR (Bld) [Velocity] 2 mm/h Normal 0-15 [facility] Comment on above: Order Comment: Speci men Type: BLOOD SPECIMEN Ordering Facility: [facility] Address: [address] [place] [address] Performed By: #### 5 7021-8, 4537-7 #### [facility] CLIA [id number] [address] [place] [address] [place] CNOVon 02-05-2023 CNOV Office Visit (SPNMMN) ---- PORTER MARAVILLA ([id number]) 1985 M Date Time Provider Department 02/05/23 3:40 PM KELLE GORDON SPMTMN During your visit today, we recorded the following information about you: Pulse Respiration Blood pressure Weight 86/minute 16/minute 127/85 112 kg Height 1.905 m Kelle Gordon DO 02/05/2023 5:49 PM Signed Spine [facility] Path Low Back Pain - Chronic (> 12 weeks) Initial Exam SUBJECTIVE HISTORY OF PRESENT ILLNESS: Porter Taiwo is a 37 year old male who presents with a chief complaint of low back and leg pain and is self-referred. Other Issues Addressed at the Visit Today: None. Injured low back as a kid. On/off severe pain progressed. 2020 had L5-S1 fusion helped. 02/2020 slipped in mud and developed left knee pain. Several surgeries. Then tka 06/09/22, still pain and feels like something moving and increased to severe pain about 4-5 weeks post op. Knee ortho concerned if from the low back. 3 spine providers do not find anything in spine. Genicular nerve blocks w/ Dr. Leiva. Yesterday, less than 50% relief 1st 3 hrs. Does have back and hip pain and both sides buttock, rare to groin. Left knee hurts standing still, sitting. Better w/ changing position. On front and lateral hamstring. Better with brace. On questioning the points of pain are maximal at the medial anterior knee and along the left lateral hamstring. He has tenderness just to light touch. He has a topical medication that is difficult for him to put on. He is not sure it helps. He also has right knee pain and a diagnosis of meniscus tear. He and his partner are both very frustrated with the lack of answers. They do plan to see orthopedics here. He expresses that if his knee requires a revision surgery he would like to just go forward with that. PAIN EVALUATION 02/05/2023 1500 Pain Level: 9 Pain Location: Back both knees Description: Aching;Sharp Duration Amount of Time: 2 Duration Units: Years Frequency: Continuous Intervention/Comfor t measure: Medication;Heat;Exe rcise;Pillow support;Therapeutic techniques-CPRP From spine surgery note 5.3.23 SUBJECTIVE: HPI:Porter Maravilla is a 37 year old male presenting with partner follow up after completing MRI knee which showed large effusion in left knee and right medial menical tear and EMG which showed no definite evidence of a generalized large fiber sensorimotor polyneuropathy or a left lumbosacral (L3-S1) intraspinal canal lesion (ie: motor radiculopathy). Patient left leg worse than right contineues to have intermittent muscle spasms throughtouth the day. Has an appointment end of January with spine med with Dr Gordon to establish a regimen for better pain control. Willl prescirbe robaxin QID PRN for his muscle spasms. Discussed referral to ortho here to assess left knee which his has multiple arthroscopy on. Will order XR bilateral knee for refer Patient has yet to get CT lumbar to evualate the status of his hardware and bony fusion. Instructed patient to sent copy once completed to office and notify us when he does this and then schedule a follow up to review. Still having muscle spasm and spastic gait with left knee given out, patient states he has to wear shoes otherwise he will fall; will order MRI thoracic spine to rule out spinal cord etiology, patinet agreeable to this plan. 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 Referral to ortho placed to review knee etiology, pending spine imaging to see bony fusion status, and r/o spinal cord etiology r/t muscle spacticity and giat instability; 1. Medications: Continue current medications and Robaxin (methocarbamol) 750 mg by mouth every 8 hours as needed for spasm Imaging: Thoracic MRI Without Contrast Preoperative planning, Postop recurring or worsening symptoms, Symptoms of neuro deficit or red flag symptoms listed in HPI, and Failure of conservative treatments as listed in HPI 2. Follow up: after completing CT lumbar and MRI thoracic patient to schedule follow up to review imaging and next steps in plan of care Imaging Ordered: For possible Thoracic Myelopathy due to presence of red flags detailed in HPI, myelopathic exam, and Failure of conservative treatments listed in HPI/Conservative Treatment Section (NSAIDs, PT, HEP and/or Icer Hand within last 3-6 mo (more content not included)... Normal [facility] CNCOon 01-29-2023 CNCO Letter Text Normal [facility] CT LSPINE WO CONon 3 CT LSPINE WO CON EXAMINATION: CT LSPINE WO CON HISTORY: Lumbar radiculopathy COMPARISON: No relevant comparison available. TECHNIQUE: Axial, Coronal, and Sagittal CT images were created without I.V. contrast material. Dose reduction techniques were achieved by using automated exposure control and/or adjustment of mA and/or kV according to patient size and/or use of iterative reconstruction technique. FINDINGS: PARASPINAL AREA: Normal with no visible mass. BONES: Normal alignment with no acute fracture or spondylolisthesis. Posterior decompression bilateral transpedicular fusion L5-S1 DISC LEVELS: 12-L1: No significant disc/facet abnormality, spinal stenosis, or foraminal stenosis. L1-L2: No significant disc/facet abnormality, spinal stenosis, or foraminal stenosis. L2-L3: No significant disc/facet abnormality, spinal stenosis, or foraminal stenosis. L3-L4: No significant disc/facet abnormality, spinal stenosis, or foraminal stenosis. L4-L5: No significant disc/facet abnormality, spinal stenosis, or foraminal stenosis. L5-S1: Interbody spacer. No disc bulge or herniation. No central or foraminal stenosis IMPRESSION: Posterior decompression and bilateral transpedicular fusion with interbody spacer L5-S1 No central or foraminal stenosis observed Electronically authenticated by: DAMARIS BARRIGA Date: 2023-01-24 16:34 Normal [facility] CNOVon 01-13-2023 CN Office Visit (SPNSMN) ---- TAIWOPORTER ([id number]) 1985 M Date Time Provider Department 01/13/23 3:00 PM SHEA PLASENCIA ERLINDAMN During your visit today, we recorded the following information about you: Pulse Respiration Blood pressure Weight 84/minute 16/minute 125/84 112.1 kg Height 1.918 m Shea Plasencia APRN.SUPERVISOR [employer] 01/14/2023 2:09 PM Signed SPINE SURGERY ESTABLISHED VISIT This is an in-person visit. DATE OF SERVICE: 01/13/2023 DATE OF LAST VISIT: 01/05/2023 SUBJECTIVE: HPI:Porter Maravilla is a 37 year old male presenting with partner follow up after completing MRI knee which showed large effusion in left knee and right medial menical tear and EMG which showed no definite evidence of a generalized large fiber sensorimotor polyneuropathy or a left lumbosacral (L3-S1) intraspinal canal lesion (ie: motor radiculopathy). Patient left leg worse than right contineues to have intermittent muscle spasms throughtouth the day. Has an appointment end of January with spine med with Dr Gordon to establish a regimen for better pain control. Willl prescirbe robaxin QID PRN for his muscle spasms. Discussed referral to ortho here to assess left knee which his has multiple arthroscopy on. Will order XR bilateral knee for refer Patient has yet to get CT lumbar to evualate the status of his hardware and bony fusion. Instructed patient to sent copy once completed to office and notify us when he does this and then schedule a follow up to review. Still having muscle spasm and spastic gait with left knee given out, patient states he has to wear shoes otherwise he will fall; will order MRI thoracic spine to rule out spinal cord etiology, patinet agreeable to this plan. Discussed how debilitating the pain is on his mental health, patient states he has a good support system at home and does seek counseling and on medications MEDICATIONS: atomoxetine (STRATTERA) 60 mg capsule Take 60 mg by mouth once daily. FLUoxetine (PROZAC) 40 mg capsule Take 80 mg by mouth once daily. LORazepam (ATIVAN) 0.5 mg Take 0.5 mg by mouth three times daily. prazosin (MINIPRESS) 1 mg cap Take 1 mg by mouth daily at bedtime. hydrOXYzine HCl (ATARAX) 25 mg tablet 25 mg three times daily as needed. lamoTRIgine (LAMICTAL) 100 mg tablet 100 mg twice daily. traZODone (DESYREL) 50 mg tablet 100 mg daily at bedtime. QUEtiapine (SEROQUEL) 400 mg tablet Take 800 mg by mouth daily at bedtime. ibuprofen (MOTRIN) 800 mg tablet Take 800 mg by mouth every 8 hours as needed. methocarbamol (ROBAXIN-750) 750 mg tablet Take 1 tablet by mouth four times daily as needed. celecoxib (CELEBREX) 200 mg capsule 200 mg once daily. (Patient not taking: Reported on 01/13/2023) lithium carbonate (ESKALITH) 300 mg capsule 300 mg three times daily with meals. (Patient not taking: Reported on 01/13/2023) QUEtiapine (SEROQUEL) 200 mg tablet Take 200 mg by mouth. (Patient not taking: Reported on 01/13/2023) pantoprazole sodium (PROTONIX ORAL) Take by mouth as needed. (Patient not taking: Reported on 01/13/2023) Patient Entered Questionnaires PROMIS Score Percentiles Percentiles provide an indication of how the patient's score ranks in relation to the general population. Higher percentile rankings indicate better function/quality of life. 50th percentile is the average of the general population and indicates half of respondents had a worse score. Depression Screening: PHQ-9 Self-Harm (Item 9) response options: 0 Not at all 1 Several days 2 More than half the days 3 Nearly every day PHQ-9 Levels: 0-4 No to mild depression 5-9 Mild depression 10-14 Moderate depression 15-19 Moderately severe depression 20-27 Severe depression OBJECTIVE: PHYSICAL EXAM: BP 125/84 Pulse 84 Resp 16 Ht 191.8 cm (6' 3.5 ) Wt 112.1 kg (247 lb 3.2 oz) SpO2 95% BMI 30.49 kg/m? GENERAL APPEARANCE: Well nourished, well developed, and no apparent distress. NEURO PSYCH: Patient oriented to person, place, and time. Mood pleasant. Benign affect. MUSCULOSKELETAL VISUAL INSPECTION CERVICAL: WNL THORACIC: WNL LUMBAR: WNL PALPATION: SPINOUS PROCESS: No pain. PARASPINALS: No pain. MUSCLE BULK: Normal and symmetrical in the upper AND lower extremities. MUSCLE TONE: Normal. MOTOR: 5/5 in all muscle groups. Weakness noted on left lower extremity hip flexion SENSORY: Normal sensory exam GAIT: Abnormal. Steppage spastic gait, patient need active muscle spasm when walking, unable to tandem gait REFLEXES: +2 to bilateral U/L extremities. PROPRIOCEPTION: Normal. LONG TRACT SIGNS: No clonus. No Hoffmans. STRAIGHT LEG TEST: Ipsilateral: Positive. ASSESSMENT/PLAN (M47.14) Spondylosis with myelopathy, thoracic region (primary encounter diagnosis) (R26.81) Gait instability (M54.16) Radiculopathy of lumbar region (M25.462) Effusion of left knee (S83.241A) Tear of medial men (more content not included)... Normal [facility] EMG(NEURO/NI)on 01-13-2023 [facility] XR KNEE 4V AP/PA/LAT/MERCH B ILon 01-13-2023 XR KNEE 4V AP/PA/LAT/MERCH BALAJI * * *Final Report* * * DATE OF EXAM: Jan 13 2023 4:19PM JIX [id number] - XR KNEE 4V AP/PA/LAT/MERCH BALAJI / PROCEDURE REASON: multiple diagnoses * * * * Physician Interpretation * * * * HISTORY: Effusion of left knee Tear of medial meniscus of right knee, current, unspecified tear type, initial encounter Gait instability TECHNOLOGIST PROVIDED HISTORY (if applicable): left knee pain, left knee replacement 7 months ago, right knee torn meniscus TECHNIQUE: XR KNEE 4V AP/PA/LAT/MERCH BALAJI RESULT: Bilateral 4 view knees. No effusion, fracture or dislocation. Joint spaces preserved throughout. Small inferior patellar osteophyte. Status post LEFT total knee arthroplasty without signs of complication or failure. IMPRESSION: SMALL PATELLAR OSTEOPHYTE OTHERWISE NORMAL RIGHT KNEE. Creative Recruiter: PSCB Transcribe Date/Time: Jan 13 2023 4:47P Dictated by : MILLY GILL MD This examination was interpreted and the report reviewed and electronically signed by: MILLY GILL MD on Jan 13 2023 4:48PM EST [id number] Normal [facility] XR KNEE GENERAL 4V AP BOTH/P A BOTH/LAT/MERC BILATERALon 01-13-2023 [facility] CNOVon 01-05-2023 CNOV Office Visit (SPNSMN) ---- PORTER MARAVILLA ([id number]) 1985 M Date Time Provider Department 01/05/23 3:00 PM SHEA PLASENCIA SPNSMN During your visit today, we recorded the following information about you: Pulse Respiration Blood pressure Weight 97/minute 18/minute 109/63 111.1 kg Height 1.918 m Shea Plasencia APRN.SUPERVISOR [employer] 01/06/2023 10:40 AM Signed SPINE SURGERY OUTPATIENT CONSULT This is an in-person visit. SERVICE DATE: 01/06/2023 PCP: Андрей Goode DO REFERRING PROVIDER: No referring provider defined for this encounter. Consult requested for an opinion regarding the evaluation and treatment of low back and left leg pain. My final impression and recommendations will be communicated back to the requesting physician by way of the shared medical record or letter via US mail. SUBJECTIVE Porter Maravilla is a 37 year old male presenting with partner. CHIEF COMPLAINT: low back pain and left leg pain Patient comes in with a chief complaint complaint today left leg pain specifically in his knee difficulty walking he has to walk slow and with a limp and he does fall often he has to use a cane. He also endorses numbness in his toes as well as back pain. Patient states that he went to his orthopedic doctor after his knee surgery and stated his leg was still in pain and he was having that numbness therefore his orthopedic recommended he see a spine doctor and thought it is coming from his back and prior fusion. Patient does not think it is coming from his back he believes that something is wrong with his knee. He also endorses that he gets severe muscle spasms when he walks due to pain he currently is not taking any medic muscle relaxants for this. Patient states is really hindering his life he is unable to work and do the things he enjoys due to the pain he experiences in his leg as well as his back. Surgical hx: left knee replacement 8 months and lumbar fusion 2 year ago Denies bowel and bladder incontinence. Denies trouble using hands. CMT: Ibuprofen Voltaren and gabapentin gel Physical therapy 6 weeks ago Injection on December 03 was his last injection which provided him minimal relief. HISTORY OF PRESENT ILLNESS PRECIPITATING EVENT: None DURATION OF SYMPTOMS: Greater Than 1 Year PAIN EVALUATION 01/05/2023 1441 Pain Level: -- 7.5 Pain Location: Back-Lower Description: Stabbing Duration Amount of Time: -- over 2 years Duration Units: Years Frequency: Continuous Intervention/Comfor t measure: Exercise;Heat;Cold; Relaxation;Other: See comment injections Pain Radiation: down the left thigh and below the left knee Aggravating Factors: Change of position (sit to stand), Standing, Walking, Walking upstairs, Walking downstairs Alleviating Factors: None Pain Ratio: Pain in the leg(s) is greater than in the back AMBULATORY STATUS: Impaired Community Distances ANTIPLATELET OR ANTICOAGULATION STATUS: No PREVIOUS CONSERVATIVE TREATMENTS: See HPI PREVIOUS SPINAL SURGERY: SURGERY #1: L5-S1 Fusion 2020 There is no problem list on file for this patient. PAST MEDICAL HISTORY Diagnosis Date Arachnoid cyst Bipolar disorder (HCC) Depression Epilepsy (HCC) History of high blood pressure Migraines PAST SURGICAL HISTORY Procedure Laterality Date ARTHROSCOPY KNEE DIAGNOSTIC W/WO SYNOVIAL BX SPX Left PAST SURGICAL HISTORY OF lumbar fusion REMOVAL GALLBLADDER TONSILLECTOMY HX FAMILY HISTORY Problem Relation Age of Onset Diabetes Maternal Grandfather Hypertension Maternal Grandfather Social History Tobacco Use Smoking status: Former Types: Cigarettes Smokeless tobacco: Never Vaping Use Vaping Use: current everyday user Substance Use Topics Alcohol use: Not Currently Drug use: Never ALLERGIES Allergen Reactions Penicillins Swelling Toradol [Ketorolac] Other: See Comments seizure Tramadol Mental Status Change MEDICATIONS: celecoxib (CELEBREX) 200 mg capsule 200 mg once daily. hydrOXYzine HCl (ATARAX) 25 mg tablet 25 mg three times daily as needed. lamoTRIgine (LAMICTAL) 100 mg tablet 100 mg twice daily. lithium carbonate (ESKALITH) 300 mg capsule 300 mg three times daily with meals. QUEtiapine (SEROQUEL) 200 mg tablet Take 200 mg by mouth. traZODone (DESYREL) 50 mg tablet 100 mg daily at bedtime. QUEtiapine (SEROQUEL) 400 mg tablet Take 800 mg by mouth daily at bedtime. ibuprofen (MOTRIN) 800 mg tablet Take 800 mg by mouth every 8 hours as needed. pantoprazole sodium (PROTONIX ORAL) Take by mouth as needed. brexpiprazole (REXULTI) 0.5 mg tablet 0.5 mg once daily. (Patient not taking: Reported on 01/05/2023) busPIRone (BUSPAR) 10 mg tablet 10 mg twice daily. (Patient not taking: Reported on 01/05/2023) REVIEW OF SYSTEMS: GENERAL: No weight loss or malaise MUSCULOSKELETAL: + knee pain, LBP NEURO: No history of headaches, syncope, paralysis, sei (more content not included)... Normal [facility] Basophils Auto (Bld) [#/Vol] Ordered By: Jelena Gregorio on 10-22-2022 Basophils (Bld) [#/Vol] 0.1 10*3/uL 0.0-0.2 [facility] Basophils/100 WBC Auto (Bld) Ordered By: Jelena Gregorio on 10-22-2022 Basophils/100 WBC (Bld) 1.2 % . [facility] C reactive protein [Mass/vol ume] in Serum or PlasmaOrdered By: Jelena Gregorio on 10-22-2022 CRP [Mass/Vol] 0.7 mg/dL 0.0-1.0 [facility] Eosinophils Auto (Bld) [#/Vo l]Ordered By: Jelena Gregorio on 10-22-2022 Eosinophils (Bld) [#/Vol] 0.3 10*3/uL 0.0-0.45 [facility] Eosinophils/100 WBC Auto (Bl d)Ordered By: Jelena Gregorio on 10-22-2022 Eosinophils/100 WBC (Bld) 6.8 % . [facility] Erythrocyte distribution wid th Auto (RBC) [Ratio]Ordered By: Jelena Gregorio on 10-22-2022 Erythrocyte distribution width (RBC) [Ratio] 15.9 % 12.0-14.8 [facility] Erythrocyte sedimentation ra te by Photometric methodOrdered By: Jelena Gregorio on 10-22-2022 ESR Photometric method (Bld) [Velocity] 12 mm/hr 0-14 [facility] Hematocrit Auto (Bld) [Volum e fraction]Ordered By: Jelena Gregorio on 10-22-2022 Hematocrit (Bld) [Volume fraction] 42.2 % 38.8-50.0 [facility] Hemoglobin [Mass/volume] in BloodOrdered By: Jelena Gregorio on 10-22-2022 Hemoglobin (Bld) [Mass/Vol] 13.7 g/dL 13.0-17.0 [facility] Leukocytes [#/volume] correc mejia for nucleated erythrocytes in Blood by Automated counOrdered By: Jelena Gregorio on 10-22-2022 WBC corrected for nucl RBC Auto (Bld) [#/Vol] 4.8 10*3/uL 4.1-10.5 [facility] Lymphocytes Auto (Bld) [#/Vo l]Ordered By: Jelena Gregorio on 10-22-2022 Lymphocytes (Bld) [#/Vol] 2.4 10*3/uL 1.00-4.8 [facility] Lymphocytes/100 WBC Auto (Bl d)Ordered By: Jelena Gregorio on 10-22-2022 Lymphocytes/100 WBC (Bld) 50.6 % . [facility] MCH Auto (RBC) [Entitic mass ]Ordered By: Jelena Gregorio on 10-22-2022 MCH (RBC) [Entitic mass] 27.4 pg 27.5-35.2 [facility] MCHC Auto (RBC) [Mass/Vol]Or dered By: Jelena Gregorio on 10-22-2022 MCHC (RBC) [Mass/Vol] 32.6 g/dL 32.5-35.6 [facility] MCV Auto (RBC) [Entitic vol] Ordered By: Jelena Gregorio on 10-22-2022 MCV (RBC) [Entitic vol] 83.9 fL 83.5-101 [facility] Monocytes Auto (Bld) [#/Vol] Ordered By: Jelena Gregorio on 10-22-2022 Monocytes (Bld) [#/Vol] 0.4 10*3/uL 0.0-0.8 [facility] Monocytes/100 WBC Auto (Bld) Ordered By: Jelena Gregorio on 10-22-2022 Monocytes/100 WBC (Bld) 7.9 % . [facility] Neutrophils Auto (Bld) [#/Vo l]Ordered By: Jelena Gregorio on 10-22-2022 Neutrophils (Bld) [#/Vol] 1.6 10*3/uL 1.8-7.7 [facility] Neutrophils/100 WBC Auto (Bl d)Ordered By: Jelena Gregorio on 10-22-2022 Neutrophils/100 WBC (Bld) 33.5 % . [facility] Nucleated erythrocytes [Pres ence] in Blood by Automated countOrdered By: Jelena Gregorio on 10-22-2022 Nucleated RBC Auto Ql (Bld) 0.2 /100{WBC} 0-0.5 [facility] Platelet mean volume Auto (B ld) [Entitic vol]Ordered By: Jelena Gregorio on 10-22-2022 Platelet mean volume (Bld) [Entitic vol] 8.4 fL 6.6-10.1 [facility] Platelets Auto (Bld) [#/Vol] Ordered By: Jelena Gregorio on 10-22-2022 Platelets (Bld) [#/Vol] 213 10*3/uL 150-450 [facility] RBC Auto (Bld) [#/Vol]Ordere d By: Jelena Gregorio on 10-22-2022 RBC (Bld) [#/Vol] 5.02 10*6/uL 3.90-5.60 [facility] WBC Auto (Bld) [#/Vol]Ordere d By: Jelena Gregorio on 10-22-2022 WBC (Bld) [#/Vol] 4.8 10*3/uL 4.1-10.5 [facility] Urine culture routineOrdered By: Jelena Gregorio on 05-21-2022 Bacteria identified Cx Nom (U) 2 Days [facility] Automated erythrocytes count in urine sediment (number/area)Ordered By: Jelena Gregorio on 05-19-2022 RBC Auto (Urine sed) [#/Area] None seen [HPF] 0-4 [facility] Automated leukocytes count i n urine sediment (number/area)Ordered By: Jelena Gregorio on 05-19-2022 WBC Auto (Urine sed) [#/Area] 5-9 [HPF] 0-4 [facility] Bilirubin Test strip Ql (U)O rdered By: Jelena Gregorio on 05-19-2022 Bilirubin Ql (U) Negative Negative [facility] Color Auto (U)Ordered By: Tho Gregorio on 05-19-2022 Color (U) Yellow Yellow [facility] Ketones Auto test strip (U) [Mass/Vol]Ordered By: Jelena Gregorio on 05-19-2022 Ketones (U) [Mass/Vol] Negative Negative Fi [facility] - UrinalysisOrder ed By: Jelena Gregorio on 05-19-2022 Hyaline casts LM Ql (Urine sed) None seen [LPF] 0-8 [facility] Nitrite Test strip Ql (U)Ord ered By: Jelena Gregorio on 05-19-2022 Nitrite Ql (U) Negative Negative [facility] Protein Auto test strip (U) [Mass/Vol]Ordered By: Jelena Gregorio on 05-19-2022 Protein (U) [Mass/Vol] Negative Negative Fi [facility] Specific gravity Auto test s trip (U) [Rel density]Ordered By: Jelena Gregorio on 05-19-2022 Specific gravity (U) [Rel density] 1.016 1.001-1.030 [facility] Squamous epithelial cells de tection in urine sediment by light microscopyOrdered By: Jelena Gregorio on 05-19-2022 Epithelial cells.squamous LM Ql (Urine sed) None seen [HPF] 0-2 [facility] Urine bacteria detection by automated methodOrdered By: Jelena Gregorio on 05-19-2022 Bacteria Auto Ql (U) None seen None Seen [facility] Urine clarity by refractomet ry automatedOrdered By: Jelena Gregorio on 05-19-2022 Clarity Refractometry automated (U) Clear Clear [facility] Urine glucose measurement by automated test strip (mass/volume)Ordered By: Jelena Gregorio on 05-19-2022 Glucose Auto test strip (U) [Mass/Vol] Normal mg/dL Normal [facility] Urine hemoglobin detection b y automated test stripOrdered By: Jelena Gregorio on 05-19-2022 Hemoglobin Auto test strip Ql (U) Negative Negative [facility] Urine leukocyte esterase det ection by automated test stripOrdered By: Jelena Gregorio on 05-19-2022 Leukocyte esterase Auto test strip Ql (U) 4+ Negative [facility] Urobilinogen Auto test strip (U) [Mass/Vol]Ordered By: Jelena Gregorio on 05-19-2022 Urobilinogen (U) [Mass/Vol] Normal mg/dL Normal [facility] pH Auto test strip (U)Ordere d By: Jelena Gregorio on 05-19-2022 pH (U) 6.0 [pH] 5.0-9.0 [facility] LITHIUMon 03-04-2022 Bradford (Eskalith(R)), Serum <0.1 Critically low 0.5-1.2 [facility] Comment on above: Result Comment: Plas ma concentration of 0.5 - 0.8 mmol/L are advised for long-term use; concentrations of up to 1.2 mmol/L may be necessary during acute treatment. Verified by repeat analysis Detection Limit = 0.1 <0.1 indicates None Detected Performed By: #### L ITHIUM #### [facility] [address] [place] [address] Dr. Ksenia Rudolph LIPID PROFILEon 03-02-2022 CHOL-HDL RATIO NORM SEE BELOW Normal [facility] Comment on above: Result Comment: 3.3 - 4.4 LOW RISK 4.4 - 7.1 AVERAGE RISK 7.1 - 11.0 MODERATE RISK >11.0 HIGH RISK Performed By: #### C MP, LIPID #### [facility] [address] [address] [address] Ksenia Rudolph Cholesterol [Mass/Vol] 164 mg/dL Normal <=[address] [facility] Comment on above: Performed By: #### C MP, LIPID #### [facility] [address] [address] [address] Ksenia Rudolph Cholesterol in HDL [Mass/Vol] 47 mg/dL Normal 40-60 [facility] Comment on above: Performed By: #### C MP, LIPID #### [facility] [address] [address] [address] Ksenia Rudolph Cholesterol in LDL [Mass/Vol] 105.2 mg/dL Normal [facility] Comment on above: Performed By: #### C MP, LIPID #### [facility] [address] [address] [address] Ksenia Rudolph Cholesterol.total/Chol esterol in HDL [Mass ratio] 3.5 {ratio} Normal [facility] Comment on above: Performed By: #### C MP, LIPID #### [facility] [address] [address] [address] Ksenia Rudolph HDL NORMAL > or = 60 mg/dl - LOW CARDIOVASCULAR RISK <40 mg/dl - HIGH CARDIOVASCULAR RISK Normal [facility] Comment on above: Performed By: #### C MP, LIPID #### [facility] [address] [address] [address] Ksenia Rudolph LDL CALC NORMAL SEE BELOW Normal [facility] Comment on above: Result Comment: <100 mg/dl OPTIMAL 100 - 129 mg/dl NEAR OR ABOVE OPTIMAL 130 - 159 mg/dl BORDERLINE HIGH 160 - 189 mg/dl HIGH >190 mg/dl VERY HIGH Performed By: #### C MP, LIPID #### [facility] [address] [address] [address] Ksenia Rudolph Triglyceride [Mass/Vol] 59 mg/dL Normal <=150 [facility] Comment on above: Performed By: #### C MP, LIPID #### [facility] [address] [place] [address] Dr. Ksenia Rudolph VLDL CALC 11.8 mg/dL Normal [facility] Comment on above: Performed By: #### C MP, LIPID #### [facility] [address] [place] [address] Dr. Ksenia Rudolph PROF 14(COMP METB)on 022 Albumin [Mass/Vol] 4.3 g/dL Normal 3.4-5.0 [facility] Comment on above: Performed By: #### C MP, LIPID #### [facility] [address] [place] [address] Dr. Ksenia Rudolph Albumin/Globulin [Mass ratio] 1.6 {ratio} Normal [facility] Comment on above: Performed By: #### C MP, LIPID #### [facility] [address] [place] [address] Dr. Ksenia Rudolph ALP [Catalytic activity/Vol] 162 U/L Critically high 46-116 [facility] Comment on above: Performed By: #### C MP, LIPID #### [facility] [address] [place] [address] Dr. Ksenia Rudolph ALT [Catalytic activity/Vol] 45 U/L Normal 16-63 [facility] Comment on above: Performed By: #### C MP, LIPID #### [facility] [address] [place] [address] Dr. Ksenia Rudolph Anion gap [Moles/Vol] 11.2 mmol/L Normal [facility] Comment on above: Performed By: #### C MP, LIPID #### [facility] [address] [place] [address] Dr. Ksenia Rudolph AST [Catalytic activity/Vol] 39 U/L Critically high 15-37 [facility] Comment on above: Performed By: #### C MP, LIPID #### [facility] [address] [place] [address] Dr. Ksenia Rudolph Bilirubin [Mass/Vol] 0.4 mg/dL Normal 0.2-1.0 [facility] Comment on above: Performed By: #### C MP, LIPID #### [facility] [address] [place] [address] Dr. Ksenia Rudolph Calcium [Mass/Vol] 9.1 mg/dL Normal 8.5-10.1 [facility] Comment on above: Performed By: #### C MP, LIPID #### [facility] [address] [place] [address] Dr. Ksenia Rudolph Chloride [Moles/Vol] 103 mmol/L Normal 98-107 [facility] Comment on above: Performed By: #### C MP, LIPID #### [facility] [address] [place] [address] Dr. Ksenia Rudolph CO2 [Moles/Vol] 28.9 mmol/L Normal 21.0-32.0 [facility] Comment on above: Performed By: #### C MP, LIPID #### [facility] [address] [place] [address] Dr. Ksenia Rudolph Creatinine [Mass/Vol] 0.99 mg/dL Normal 0.70-1.30 [facility] Comment on above: Performed By: #### C MP, LIPID #### [facility] [address] [place] [address] Dr. Ksenia Rudolph EGFR-AF IRAQI >60 Normal >=60 [facility] Comment on above: Performed By: #### C MP, LIPID #### [facility] [address] [place] [address] Dr. Ksenia Rudolph EGFR-NON AF IRAQI >60 Normal >=60 [facility] Comment on above: Performed By: #### C MP, LIPID #### [facility] [address] [place] [address] Dr. Ksenia Rudolph Globulin (S) [Mass/Vol] 2.7 g/dL Normal [facility] Comment on above: Performed By: #### C MP, LIPID #### [facility] [address] [place] [address] Dr. Ksenia Rudolph Glucose [Mass/Vol] 93 mg/dL Normal 74-106 [facility] Comment on above: Performed By: #### C MP, LIPID #### [facility] [address] [address] [address] Ksenia Rudolph Potassium [Moles/Vol] 4.1 mmol/L Normal 3.5-5.1 [facility] Comment on above: Performed By: #### C MP, LIPID #### [facility] [address] [address] [address] Ksenia Rudolph Protein [Mass/Vol] 7.0 g/dL Normal 6.4-8.2 [facility] Comment on above: Performed By: #### C MP, LIPID #### [facility] [address] [place] [address] Dr. Ksenia Rudolph Sodium [Moles/Vol] 139 mmol/L Normal 136-145 [facility] Comment on above: Performed By: #### C MP, LIPID #### [facility] [address] [place] [address] Dr. Ksenia Rudolph Urea nitrogen [Mass/Vol] 8.0 mg/dL Normal 7.0-18.0 [facility] Comment on above: Performed By: #### C MP, LIPID #### [facility] [address] [place] [address] Dr. Ksenia Rudolph Urea nitrogen/Creatinine [Mass ratio] 8.1 mg/mg Normal [facility] Comment on above: Performed By: #### C MP, LIPID #### [facility] [address] [place] [address] Dr. Ksenia Rudolph XR KNEE LT 4V or >on 022 XR KNEE LT 4V or > IMAGES REVIEWED: XR KNEE LT 4V or > COMPARISON: 02/12/2021, 04/17/2020. CLINICAL INDICATION: Pain FINDINGS/IMPRESSION : 1. Apparent moderate joint effusion. 2. No radiographic evidence of acute osseous abnormality of the left knee. 3. Mild degenerative change. Electronically authenticated by: KATIE RODRIGUEZ Date: 2022-03-02 16:41 Normal [facility] KNEE LEFT 4VWSon 09-01-2021 KNEE LEFT 4VWS [facility] [address] [place] [id number] Patient Name: PORTER MARAVILLA : 1985 Sex: M Age: Race: Black Pt. Location: 419 Patient Status: Ordered Date: 09/01/2021 10:20:00 AM Completed Date: 09/01/2021 10:37 AM Requesting Provider: CAESAR KENT Attending Provider: Report Copy To: Signs & Symptoms: M25.562 Pain in left knee I10 History: Comments: Weight bearing Exam: KNEE LEFT 4VWS KNEE LEFT 4VWS 09/01/2021 10:37 AM CLINICAL INDICATIONS: M25.562 Pain in left knee I10 TECHNOLOGIST COMMENTS: left knee pain patient states history of multiple surgeries for meniscus tear QUESTION FOR THE RADIOLOGIST: Weight bearing PROTOCOL: AP,Lateral,Tunnel and Tangential views were obtained. COMPARISON: None FINDINGS: Spurring of the patella and medial compartment. There may be a small suprapatellar effusion. No acute fracture nor malalignment. Soft tissues unremarkable. IMPRESSION: No acute abnormality. If is concern regarding internal derangement consider MRI for further evaluation. Electronically signed: Garth Marrufo. Transcribed by: [email or web address], User Resident: Electronically Signed by: GARTH MARRUFO @ 09/01/2021 10:41 AM Normal [facility] Comment on above: Order Comment: Weigh t bearing Vital Signs Date Time Vital Sign Value Performing Clinician Facility 06-28-2023 15:120400 Body height 190.5 cm Fuad Kari PA-C Work Phone: [facility] 06-28-2023 15:12-0400 Body weight 111.[address] [facility] Kari PA-C Work Phone: [facility] 06-28-2023 15:12-0400 Diastolic blood pressure 86 mm[Hg] [facility] Kari PA-C Work Phone: [facility] 06-28-2023 15:12-0400 Heart rate 92 /min Fuad Kari PA-C Work Phone: [facility] 06-28-2023 15:12-0400 SaO2% (BldA) [Mass fraction] 99 % [facility] Kari PA-C Work Phone: [facility] 06-28-2023 15:12-0400 Systolic blood pressure 126 mm[Hg] [facility] Kari PA-C Work Phone: [facility] 06-04-2023 09:30-0400 Body height 191.77 cm Trey Wright Other [employer] Other 06-04-2023 09:30-0400 Body mass index (BMI) [Ratio] 29.62 kg/m2 Trey Wright Other [employer] Other 06-04-2023 09:30-0400 Body weight 108.95 kg Trey Wright Other [employer] Other 06-04-2023 09:30-0400 Diastolic blood pressure 84 mm[Hg] Trey Wright Other [employer] Other 06-04-2023 09:30-0400 SaO2% (BldA) [Mass fraction] 99 % Trey Wright Other [employer] Other 06-04-2023 09:30-0400 Systolic blood pressure 128 mm[Hg] Trey Wright Other [employer] Other 04-26-2023 12:19-0400 Body height 190.5 cm Viviana Macedo MD Work Phone: [facility] 04-26-2023 12:19-0400 Body weight 108.95 kg Viviana Macedo MD Work Phone: [facility] 03-18-2023 15:28-0400 Body height 190.5 cm Destiney Garcia MD Work Phone: [facility] 03-18-2023 15:28-0400 Body temperature 98.1 [degF] Destiney Garcia MD Work Phone: [facility] 03-18-2023 15:28-0400 Body weight 108.86 kg Destiney Garcia MD Work Phone: [facility] 03-18-2023 15:28-0400 Diastolic blood pressure 85 mm[Hg] Destiney Garcia MD Work Phone: [facility] 03-18-2023 15:28-0400 Heart rate 87 /min Destiney Garcia MD Work Phone: [facility] 03-18-2023 15:28-0400 Respiratory rate 16 /min Destiney Garcia MD Work Phone: [facility] 03-18-2023 15:28-0400 SaO2% (BldA) [Mass fraction] 99 % Destiney Garcia MD Work Phone: [facility] 03-18-2023 15:28-0400 Systolic blood pressure 146 mm[Hg] Destiney Garcia MD Work Phone: [facility] 02-11-2023 16:00-0400 Body height 191.77 cm Trey Wright Other [employer] [facility] [employer] Other 02-11-2023 16:00-0400 Body mass index (BMI) [Ratio] 29.97 kg/m2 Trey Wright Other [employer] Other 02-11-2023 16:00-0400 Body weight 110.22 kg Trey Wright Other [employer] Other 02-11-2023 16:00-0400 Diastolic blood pressure 80 mm[Hg] Trey Wright Other [employer] Other 02-11-2023 16:00-0400 Systolic blood pressure 126 mm[Hg] Trey Wright Other [employer] Other 01-13-2023 14:51-0400 Body height 191.8 cm Shea Plasencia APRN.[employer] Work Phone: [facility] 01-13-2023 14:51-0400 Body weight 112.13 kg Shea Plasencia APRN.[employer] Work Phone: [facility] 01-13-2023 14:51-0400 Diastolic blood pressure 84 mm[Hg] Shea Plasencia APRN.[employer] Work Phone: [facility] 01-13-2023 14:51-0400 Heart rate 84 /min Shea Plasencia APRN.[employer] Work Phone: [facility] 01-13-2023 14:51-0400 Respiratory rate 16 /min Shea Plasencia APRN.[employer] Work Phone: [facility] 01-13-2023 14:51-0400 SaO2% (BldA) [Mass fraction] 95 % Shea Plasencia APRN.[employer] Work Phone: [facility] 01-13-2023 14:51-0400 Systolic blood pressure 125 mm[Hg] Shea Plasencia APRN.CNP Work Phone: [facility] 12-10-2022 15:45-0400 Body height 191.77 cm Trey Wright Other [employer] Other 12-10-2022 15:45-0400 Body mass index (BMI) [Ratio] 29.99 kg/m2 Trey Wright Other [employer] Other 12-10-2022 15:45-0400 Body weight 110.32 kg Trey Wright Other [employer] Other 12-10-2022 15:45-0400 Diastolic blood pressure 84 mm[Hg] Trey Adriana Other [employer] Other 12-10-2022 15:45-0400 SaO2% (BldA) [Mass fraction] 99 % Trey Wright Other [employer] Other 12-10-2022 15:45-0400 Systolic blood pressure 128 mm[Hg] Trey Adriana Other [employer] Other 11-18-2022 13:45-0500 Body height 191.77 cm Trey Wright Other [employer] Other 11-18-2022 13:45-0500 Body mass index (BMI) [Ratio] 30.88 kg/m2 Trey Wright Other [employer] Other 11-18-2022 13:45-0500 Body weight 113.58 kg Trey Adriana Other [employer] Other 11-18-2022 13:45-0500 Diastolic blood pressure 82 mm[Hg] Trey Adriana Other [employer] Other 11-18-2022 13:45-0500 SaO2% (BldA) [Mass fraction] 99 % Trey Adriana Other [employer] Other 11-18-2022 13:45-0500 Systolic blood pressure 118 mm[Hg] Trey Adriana Other [employer] Other 10-22-2022 12:00-0500 Body height 191.77 cm Yolande Beck Other [employer] Other 10-22-2022 12:00-0500 Body mass index (BMI) [Ratio] 29.6 kg/m2 Yolande Beck Other [employer] Other 10-22-2022 12:00-0500 Body weight 108.86 kg Yolandemitra Beck Other [employer] Other 10-22-2022 12:00-0500 Diastolic blood pressure 90 mm[Hg] Yolandemitra Beck Other [employer] Other 10-22-2022 12:00-0500 Systolic blood pressure 132 mm[Hg] Yolande Beck Other [employer] Other 03-25-2022 12:10-0400 Diastolic blood pressure 80 mm[Hg] PHYSICIAN NO [facility] 03-25-2022 12:10-0400 Heart rate 72 /min PHYSICIAN NO [facility] 03-25-2022 12:10-0400 Respiratory rate 18 /min PHYSICIAN NO [facility] 03-25-2022 12:10-0400 SaO2% (BldA) [Mass fraction] 98 % PHYSICIAN NO [facility] 03-25-2022 12:10-0400 Systolic blood pressure 130 mm[Hg] PHYSICIAN NO [facility] 03-25-2022 11:32-0400 Inhaled oxygen flow rate 3 L/min PHYSICIAN NO [facility] 03-25-2022 10:34-0400 Body height 190.5 cm PHYSICIAN NO [facility] 03-25-2022 10:34-0400 Body mass index (BMI) [Ratio] 29.7 kg/m2 PHYSICIAN NO [facility] 03-25-2022 10:34-0400 Body weight 107.95 kg PHYSICIAN NO [facility] 03-04-2022 13:32-0400 Diastolic blood pressure 80 mm[Hg] PHYSICIAN NO [facility] 03-04-2022 13:32-0400 Heart rate 71 /min PHYSICIAN NO [facility] 03-04-2022 13:32-0400 Respiratory rate 16 /min PHYSICIAN NO [facility] 03-04-2022 13:32-0400 SaO2% (BldA) [Mass fraction] 97 % PHYSICIAN NO [facility] 03-04-2022 13:32-0400 Systolic blood pressure 132 mm[Hg] PHYSICIAN NO [facility] 03-04-2022 11:53-0400 Inhaled oxygen flow rate 3 L/min PHYSICIAN NO [facility] 03-04-2022 11:00-0400 Body height 190.5 cm PHYSICIAN NO [facility] 03-04-2022 11:00-0400 Body mass index (BMI) [Ratio] 29.3 kg/m2 PHYSICIAN NO [facility] 03-04-2022 11:00-0400 Body weight 106.59 kg PHYSICIAN NO [facility] 02-16-2022 17:00-0400 Body height 191.77 cm Trey Wright Other [employer] Other 02-16-2022 17:00-0400 Diastolic blood pressure 70 mm[Hg] Trey Wright Other [employer] Other 02-16-2022 17:00-0400 SaO2% (BldA) [Mass fraction] 98 % Trey Wright Other [employer] Other 02-16-2022 17:00-0400 Systolic blood pressure 110 mm[Hg] Trey Wright Other [employer] Other 01-28-2022 11:15-0400 Body height 191.77 cm Dario Marroquin Other [employer] Other 01-28-2022 11:15-0400 Body mass index (BMI) [Ratio] 30.3 kg/m2 Dario Marroquin Other [employer] Other 01-28-2022 11:15-0400 Body weight 111.45 kg Dario Marroquin Other [employer] Other 11-26-2021 10:00-0400 Body height 191.77 cm Dario Marroquin Other [employer] Other 11-26-2021 10:00-0400 Body mass index (BMI) [Ratio] 30.83 kg/m2 Dario Marroquin Other [employer] Other 11-26-2021 10:00-0400 Body weight 113.4 kg Dario Marroquin Other [employer] Other 07-30-2021 10:30-0500 Body height 191.77 cm Dario Marroquin Other [employer] Other 07-30-2021 10:30-0500 Body mass index (BMI) [Ratio] 30.83 kg/m2 Dario Marroquin Other [employer] Other 07-30-2021 10:30-0500 Body weight 113.4 kg Dario Marroquin Other [employer] Other 07-30-2021 10:30-0500 Diastolic blood pressure 75 mm[Hg] Dario Marroquin Other [employer] Other 07-30-2021 10:30-0500 Systolic blood pressure 130 mm[Hg] Dario Marroquin Other [employer] Other NEGATED: Highlighted row BMI (Body Mass Index) [facility] NEGATED: Highlighted row BMI (Body Mass Index) [facility] NEGATED: Highlighted row Body Temperature [facility] NEGATED: Highlighted row Body Temperature [facility] NEGATED: Highlighted row Body weight [facility] NEGATED: Highlighted row Body weight [facility] NEGATED: Highlighted row BP Diastolic [facility] NEGATED: Highlighted row BP Diastolic [facility] NEGATED: Highlighted row BP Systolic [facility] NEGATED: Highlighted row BP Systolic [facility] NEGATED: Highlighted row Height [facility] NEGATED: Highlighted row Height [facility] NEGATED: Highlighted row Pulse (Heart Rate) [facility] NEGATED: Highlighted row Pulse (Heart Rate) [facility] NEGATED: Highlighted row Pulse Oximetry [facility] NEGATED: Highlighted row Pulse Oximetry [facility] NEGATED: Highlighted row Respiratory Rate [facility] NEGATED: Highlighted row Respiratory Rate [facility] Encounters Encounter Date Encounter Type Care Provider Facility Start: 06-12-2024 ambulatory Penelope Pastrana Facility:[facility] Start: 05-23-2024 End: 05-23-2024 ambulatory [facility] Start: 04-28-2024 End: 04-28-2024 ambulatory JELENA DILLARD Not Available Start: 02-25-2024 End: 02-25-2024 ambulatory JELENA DILLARD Not Available Start: 11-01-2023 End: 11-01-2023 ambulatory JELENA DILLARD Not Available Start: 08-19-[address] [facility] Start: 08-16-2023 End: 08-17-2023 ambulatory DAMARIS JORDANHN [facility] Start: 08-02-2023 End: 08-02-2023 [facility] Pooja Cordon MD Work Phone: Psychiatry Pain Recovery Comment on above: Chronic pain syndrom e (Primary Dx); Pain disorder associated with psychological factors and medical condition; RESHMA (generalized anxiety disorder); Chronic use of benzodiazepine for therapeutic purpose; MDD (major depressive disorder), recurrent episode, moderate (HCC) Start: 07-28-2023 End: 07-28-2023 ambulatory JELENA DILLARD Not Available Start: 07-12-2023 End: 07-12-2023 Patient encounter procedure PHYSICIAN [facility] Work Phone: Start: 07-12-2023 End: 07-12-2023 ambulatory PHYSICIAN [facility] Work Phone: Start: 07-02-2023 End: 07-02-2023 ambulatory Nelda Sheriff APRN.[employer] Work Phone: Telemedicine Comment on above: Treatment not availa ble (Primary Dx) Help Start: 07-02-2023 End: 07-02-2023 ambulatory АНДРЕЙ GOODE Facility:[facility] Start: 06-28-2023 End: 06-28-2023 ambulatory FUAD PIERCE Facility:[facility] Start: 06-28-2023 End: 06-28-2023 Patient encounter procedure Fuad REDMONDC Work Phone: Neurology Pain Comment on above: History of left knee replacement (Primary Dx); Chronic pain of left knee; Bipolar 1 disorder (HCC) Start: 06-11-2023 End: 06-11-2023 ambulatory SHEA PLASENCIA Facility:[facility] Start: 06-10-2023 ambulatory Shea AGGARWAL RN.[employer] Work Phone: [facility] Start: 06-10-2023 Patient encounter procedure Shea Plasencia APRN.[employer]OR [employer] Work Phone: [facility] [place] Comment on above: Appointment Start: 06-09-2023 End: 06-09-2023 ambulatory KELLE GORDON Facility:[facility] Start: 06-04-2023 End: 06-04-2023 ambulatory Trey Wright Other [employer] Other Start: 06-04-2023 Office outpatient vi sit 25 minutes Trey Wright [facility] Start: 06-01-2023 ambulatory Kelle Gordon D O Work Phone: [facility] Start: 06-01-2023 Patient encounter procedure Kelle Gordon DO Work Phone: [facility] [place] Comment on above: Appointment Start: 05-29-2023 ambulatory Shea AGGARWAL RN.[employer] Work Phone: [facility] [place] Comment on above: Call Start: 05-03-2023 End: 05-03-2023 ambulatory Trey Wright Other [employer] Other Start: 05-03-2023 Telephone encounter Trey Wright [facility] Start: 04-30-2023 Telephone encounter Toribio mills PA-C Work Phone: Orthopaedics Comment on above: Patient Question (Pa in/) Start: 04-28-2023 End: 06-12-2023 ambulatory Shea Plasencia APRN.CNP Work Phone: [facility] [place] Comment on above: Left leg pain (Prima ry Dx); Chronic pain of left knee; Spasm of muscle; Gait instability; Suicidal ideation Start: 04-28-2023 End: 04-28-2023 Telemedicine consultation with patient Shea Plasencia APRN.CNP Work Phone: [facility] Start: 04-26-2023 End: 04-26-2023 ambulatory VIVIANA MACEDO Facility:[facility] Start: 04-26-2023 End: 04-26-2023 Patient encounter procedure Viviana Macedo MD Work Phone: Orthopaedics Comment on above: Status post total le ft knee replacement (Primary Dx) Start: 03-24-2023 Refill Shea AGGARWAL RN.[employer] Work Phone: [facility] Comment on above: Refill Request Start: 03-22-2023 ambulatory Shea AGGARWAL RN.YVON Work Phone: [facility] Comment on above: Advice Start: 03-22-2023 Follow-up encounter Shea carrasco APRN.YVON Work Phone: [facility] Comment on above: Follow up Start: 03-22-2023 Telephone encounter Destiney glass MD Work Phone: Pain Management Comment on above: Nurse Triage Call (T ENS unit information) Start: 03-18-2023 End: 03-18-2023 ambulatory DESTINEY GARCIA Facility:[facility] Start: 03-18-2023 End: 03-18-2023 Patient encounter procedure Destiney Garcia MD Work Phone: Pain Management Comment on above: Neuralgia and neurit is (Primary Dx); Left leg pain; Myofascial pain; Spasm of muscle; Lumbar pain; Bilateral chronic knee pain; History of seizure; History of left knee replacement; BMI 30.0-30.9,adult Start: 03-15-2023 Orders Only Toribio Priscapl e PA-C Work Phone: Orthopaedics Comment on above: Chronic pain of left knee (Primary Dx) Patient Question; Kathryn stanley (labs) Start: 03-05-2023 End: 03-06-2023 ambulatory TORIBIO HAMMOND Facility:[facility] Start: 03-05-2023 End: 03-05-2023 ambulatory SHEA PLASENCIA Facility:[facility] Start: 03-05-2023 End: 03-05-2023 Patient encounter procedure Toribio Hammond PA-C Work Phone: Orthopaedics Comment on above: Pain due to total le ft knee replacement, initial encounter ([facility]) (Primary Dx); Effusion of left knee; Tear of medial meniscus of right knee, current, unspecified tear type, initial encounter Start: 02-23-2023 ambulatory Shea AGGARWAL RN.[employer] Work Phone: [facility] Comment on above: Ortho Start: 02-22-2023 End: 02-22-2023 ambulatory АНДРЕЙ DE OLIVEIRA RIGOSUSANNE Facility:[facility] Start: 02-21-2023 Refill Shea AGGARWAL RN.[employer] Work Phone: [facility] [place] Comment on above: Refill Request Start: 02-16-2023 ambulatory Kelle Gordon Brooke Templeton Work Phone: [facility] [place] Comment on above: Pain increasing Start: 02-11-2023 End: 02-11-2023 ambulatory Trey Wright [facility] [employer] Other Start: 02-11-2023 Office outpatient vi sit 15 minutes Trey Wrigth [facility] Start: 02-05-2023 End: 02-06-2023 ambulatory АНДРЕЙ GOODE Facility:[facility] Start: 01-23-2023 End: 01-24-[address] DOCTOR OLVERA Facility: Start: 01-13-2023 End: 01-13-2023 ambulatory SHEA PLASENCIA Facility:[facility] Start: 01-13-2023 End: 01-14-2023 ambulatory SHEA PLASENCIA Facility:[facility] Start: 01-13-2023 End: 01-14-2023 ambulatory SHEA PLASENCIA Facility:[facility] Start: 01-13-2023 End: 01-13-2023 ambulatory Emg 1000) Work Phone: Neurology Comment on above: EMG Start: 01-13-2023 End: 01-13-2023 Patient encounter procedure Emg 4 Neur Main (Max Weight: 1000) Work Phone: [facility] Comment on above: Spondylosis with mye lopathy, thoracic region (Primary Dx); Gait instability; Radiculopathy of lumbar region; Effusion of left knee; Tear of medial meniscus of right knee, current, unspecified tear type, initial encounter Start: 01-05-2023 End: 01-06-2023 ambulatory SHEA PLASENCIA Facility:[facility] Start: 12-25-2022 Chart abstracting Unknown (His torical) [employer] Neurology Start: 12-10-2022 End: 12-10-2022 ambulatory Trey Wright Other [employer] Other Start: 12-10-2022 Office outpatient vi sit 25 minutes Trey Wright [facility] Start: 11-19-2022 End: 11-19-2022 ambulatory Trey Wright [facility] [employer] Other Start: 11-19-2022 Telephone encounter Trey Wright [facility] Start: 11-18-2022 End: 11-18-2022 ambulatory Trey Wright [facility] [employer] Other Start: 11-18-2022 Office outpatient vi sit 25 minutes Trey Wright [facility] Start: 10-22-2022 Office outpatient vi sit 15 minutes Yolande Beck [facility] Start: 10-22-2022 End: 10-22-2022 ambulatory PHYSICIAN NO [facility] Work Phone: Start: 10-22-2022 End: 10-22-2022 Patient encounter procedure PHYSICIAN NO [facility] [place] Work Phone: Start: 05-28-2022 End: 05-28-2022 Patient encounter procedure PHYSICIAN NO [facility] [address] Start: 05-19-2022 End: 05-19-2022 Patient encounter procedure PHYSICIAN [facility] Start: 03-25-2022 (Procedure) Short Trey Wright [facility] Start: 03-25-2022 End: 03-25-2022 ambulatory Trey Wright [facility] [employer] Other Start: 03-25-2022 End: 03-25-2022 Admission to same day surgery center PHYSICIAN NO [facility] Start: 03-11-2022 End: 03-11-2022 ambulatory Trey Wright [facility] [employer] Other Start: 03-11-2022 Office outpatient vi sit 15 minutes Trey Wright [facility] Start: 03-04-2022 (Procedure) Short Trey Wright [facility] Start: 03-04-2022 End: 03-04-2022 ambulatory Trey Wright Other [employer] Other Start: 03-04-2022 End: 03-04-2022 Admission to same day surgery center PHYSICIAN LULA JON [facility] Start: 03-02-2022 End: 03-03-[address] [facility] Facility:[facility] Start: 02-16-2022 End: 02-16-2022 ambulatory Trey Wright Other [employer] Other Start: 02-16-2022 Office outpatient vi sit 25 minutes Trey Wright [facility] Start: 01-28-2022 End: 01-28-2022 ambulatory Dario Marroquin Other [employer] Other Start: 01-28-2022 Office outpatient vi sit 15 minutes Dario Marroquin [facility] [place] Start: 11-26-2021 End: 11-26-2021 ambulatory Dario Marroquin [facility] [employer] Other Start: 11-26-2021 Office outpatient vi sit 15 minutes Dario Marroquin [facility] [place] Start: 08-11-2021 End: 08-11-2021 ambulatory Dario Marroquin [facility] [employer] Other Start: 08-11-2021 Telephone encounter Dario [facility] [place] Start: 07-30-2021 End: 07-30-2021 ambulatory Dario Marroquin [facility] [employer] Other Start: 07-30-2021 Office outpatient vi sit 15 minutes Dario Marroquin [facility] [place] Start: 08-20-2017 End: 08-21-2017 Ambulatory Teddy Lam Facility:CD:[id number] Procedures Date Procedure Procedure Detail Performing Clinician Start: 07-12-2023 Radionuclide three-phase bone study PHYSICIAN NO FAMILY Start: 03-22-2023 History of operative procedure on knee History of left knee replacement Destiney Garcia MD Work Phone: Start: 01-13-2023 Nerve conduction studies 5-6 studies Shea Plasencia [employer] Work Phone: Start: 10-22-2022 X-ray of lumbar spine, four views PHYSICIAN NO FAMILY Start: 05-28-2022 Plain X-ray of bilateral femurs PHYSICIAN NO FAMILY Start: 05-28-2022 Plain X-ray of bilateral tibia and bilateral fibula PHYSICIAN NO FAMILY Start: 03-25-2022 Local anesthetic sacral epidural block PHYSICIAN NO FAMILY Start: 03-04-2022 Injection of spinal epidural space PHYSICIAN NO FAMILY Diabetes mellitus screening Dario Marroquin Other History of operative procedure on knee History of arthroplasty of left knee PHYSICIAN NO FAMILY History of operative procedure on knee History of left knee replacement Destiney Garcia MD Work Phone: History of operative procedure on knee History of left knee replacement Fuad Pierce PA-C Work Phone: Hyperlipidemia screening Mike Marroquin Other Urine culture PHYSICIAN NO F AMILY Plan of Treatment Date Care Activity Detail Author Start: 05-14-2023 Influenza vaccination C [facility] Start: 09-13-2022 DEPRESSION ASSESSMENT DEPRESSION ASS ESSMENT [facility] Start: 2022 Lipid 1996 panel - Serum or Plasma Lipid Screening [facility] Start: 2022 LIPID SCREEN LIPID SCREEN [facility] Start: 03-25-2022 [facility] Work Phone: Start: 03-04-2022 [facility] Work Phone: Start: 2006 Urine microalbumin profile [facility] Start: 2005 HEPATITIS C SCREENING HEPATITIS C SC ANDREA [facility] Start: 2005 HIV SCREENING HIV SCREENING [facility] Start: 01-16-1988 COVID-19 VACCINE (#1) COVID-19 VACCI NE (#1) [facility] Start: 1987 HEPATITIS B (1 of 3 - 3-dose series) HEPATITIS B (1 of 3 - 3-dose series) [facility] Start: 1987 Hepatitis B Vaccine (1 of 3 - 3-dose series) Hepatitis B Vaccine (1 of 3 - 3-dose series) [facility] Bacteria identified in Urine by Culture [facility] End: 02-12-2024 Mri spinal canal thoracic w/o contrast matrl MRI THORACIC SPINE WO IVCON Radiology Routine Radiculopathy of lumbar region Gait instability Spondylosis with myelopathy, thoracic region 1 Occurrences starting 01/13/2023 until 02/12/2024 [facility] Work Phone: Comment on above: 1 Occurrences starti ng 01/13/2023 until 02/12/2024 Patient Education Adriana Non Diagn ostic Block [facility] Work Phone: Patient referral [facility] Work Phone: [facility] Immunizations Immunization Date Immunization Notes Care Provider Rishi ribera 06-13-2019 influenza, injectabl e, quadrivalent, preservative free PHYSICIAN NO [facility] 06-13-2019 influenza virus vaccine, unspecified formulation Shea Plasencia APRN.[employer] Work Phone: [facility] Payers Date Payer Category Payer Medicaid [id number] 2017 Self-pay 1987 Unknown [id number] 2.16.84 [id number] 1987 Unknown [id number] 2.16.84 [id number] 1987 Unknown [id number] 2.16.84 [id number] 1987 Unknown [id number] 2.16. [id number] 1987 Unknown [id number] 2.16.84 [id number] 1987 Unknown [id number] 2.16.84 [id number] 1987 Unknown [id number] 2.16.84 [id number] 1987 Unknown [id number] 2.16.84 [id number] 1987 Unknown [id number] 2.16.840. [id number] 1987 Unknown [id number] 2.16.8 [id number] 1987 Unknown [id number] 2.16.8 [id number] 1959 Medicaid [id number] [facility] [id number] 1959 Unknown [id number] 2. [id number] Unknown [id number] 2.16.8 [id number] Unknown [id number] 2.16.8 [id number] Social History Date Type Detail Facility Start: 01-13-2023 End: 02-05-2023 Sex Assigned At [facility] Start: 05-19-2022 End: 01-05-2023 Tobacco smoking status WYIS Ex-smoker (finding) [facility] Start: 1985 Sex Assigned At Male F [facility] Start: 06-05-2022 End: 06-05-2022 Tobacco smoking status WYIS Smoker (finding) [facility] History of tobacco use Cigarette Smoker C [facility] Start: 07-17-2021 End: 01-05-2023 Tobacco use and exposure Smokeless tobacco non-user [facility] Start: 07-17-2021 End: 06-28-2023 Alcohol intake Ex-drinker (finding) [facility] Start: 1985 Sex Assigned At Not on file C [facility] Start: 01-03-2023 End: 02-05-2023 Exposure to SARS-CoV-2 (event) Not sure [facility] Start: 01-13-2023 End: 02-05-2023 History of Social function [facility] Adult Depression Screening Assessment 6 [facility] Medical Equipment Procedure Code Equipment Code Equipment Origin al Text Equipment Identifier Dates Arthroplasty, knee, total, minimally invasive Orthopaedic cement, non-medicated [id number] FDA Start: 06-05-2022 Arthroplasty, knee, total, minimally invasive Orthopaedic cement, non-medicated ()[id number] FDA Start: 06-05-2022 Arthroplasty, knee, total, minimally invasive Orthopaedic bone screw, non-bioabsorbable, sterile ()[id number] FDA Start: 06-05-2022 Arthroplasty, knee, total, minimally invasive Tibial insert ()[id number] FDA Start: 06-05-2022 Arthroplasty, knee, total, minimally invasive Uncoated knee tibia prosthesis, metallic ()[id number] FDA Start: 06-05-2022 Arthroplasty, knee, total, minimally invasive Polyethylene patella prosthesis ()[id number] FDA Start: 06-05-2022 Arthroplasty, knee, total, minimally invasive Uncoated knee femur prosthesis ()[id number] FDA Start: 06-05-2022 Anterior lumbar interbody fusion (ALIF) XLIF MAS REDUCTION 1 LEVEL FDA Start: 10-08-2020 Anterior lumbar interbody fusion (ALIF) Bone-screw internal spinal fixation system, non-sterile ()[id number] FDA Start: 10-08-2020 Anterior lumbar interbody fusion (ALIF) Bone-screw internal spinal fixation system, non-sterile ()[id number] FDA Start: 10-08-2020 Anterior lumbar interbody fusion (ALIF) Bone-screw internal spinal fixation system, non-sterile ()[id number] FDA Start: 10-08-2020 Anterior lumbar interbody fusion (ALIF) Metallic spinal fusion cage, non-sterile ()[id number] FDA Start: 10-08-2020 Anterior lumbar interbody fusion (ALIF) Spinal fusion graft kit ()[id number] FDA Start: 10-08-2020 Anterior lumbar interbody fusion (ALIF) Bone matrix implant, human-derived ()[id number] FDA Start: 10-08-2020 Anterior lumbar interbody fusion (ALIF) Spinal bone screw, non-bioabsorbable ()[id number] FDA Start: 10-08-2020 Anterior lumbar interbody fusion (ALIF) Bone-screw internal spinal fixation system, non-sterile ()[id number] FDA Start: 10-08-2020 Anterior lumbar interbody fusion (ALIF) Bone-screw internal spinal fixation system, non-sterile ()[id number] FDA Start: 10-08-2020 Anterior lumbar interbody fusion (ALIF) XLIF MAS REDUCTION 1 LEVEL FDA Start: 10-08-2020 Anterior lumbar interbody fusion (ALIF) XLIF MAS REDUCTION 1 LEVEL FDA Start: 10-08-2020 Anterior lumbar interbody fusion (ALIF) XLIF MAS REDUCTION 1 LEVEL FDA Start: 10-08-2020 Goals Date Patient Goal Desired Activity /State Clinical Notes 07-30-2021 to 08-19-2023 Pooja Cordon MD - 08/02/2023 11:55 AM Nelda Mehta APRN.[employer] - 07/02/2023 12:23 PM Fuad Snyder PA-C - 06/28/2023 3:30 PM EDT Note Date & Type Note Facility 08-19-2023 Note Orthopedic Surgery Subjective Pain of the Left Knee (L TKA needs revision , L TKA done 1 year ago, c/o l knee ana m and gives out ) 08/19/2023 Patient is presenting today for evaluation of Left knee pain , patient is S/P Left TKA by Dr. Gregorio in [place] 06/05/2023 patient with history of Multiple arthroscopic surgeries before his knee replacement, patient with severe Left knee pain , failed multiple treatment including pain management pain blocks, patient has been seeing Spine surgery in [facility] and neurology as well , he has significant pain interfering with his ability to walk. Patient is waking with antalgic gait no waling aids, patient with history of Spine surgery , history of Neuritis, Myelopathy and spondylosis , he is presenting today for evaluation his knee , he stated that he was told that he needs surgery by the [facility] but they wouldn't do it. Patient described his pain as constant pain, independent of walking or activities, burning/aching pain. Porter Maravilla is a 38 y.o. male presenting for evaluation of LEFT knee pain Patient presents as a new patient evaluation of left knee pain. He had a total knee replacement done by Dr. Gregorio about a year ago, states he had prior meniscus surgeries and afterwards his knee went on to degenerative arthritis at quite a young age. After his total knee about a year ago, he has had persistent pain and difficulty with using the knee as well as symptomatic buckling and instability. He also has significant valgus deformity of the leg. He has seen numerous providers in the past, he recently had periprosthetic joint infection ruled out by [facility] via inflammatory markers. He is seen here for consideration of another opinion regarding his left knee. States his pain and dysfunction is debilitating. Review of Systems unremarkable aside from what is noted in HPI Patient History Past Surgical History: Procedure Laterality Date KNEE SURGERY Left Past Medical History: Diagnosis Date Dislocated elbow Epilepsy ([facility]) Objective General: There is no height or weight on file to calculate BMI. No acute distress, un comfortable, patient is anxious Respiratory: Unlabored breathing with normal rate, no cough Cardiovascular: Warm well perfused extremities Psych: very anxious Left Knee: Inspection- no ecchymosis, no edema, mild effusion. Prior surgical incision well healed Significant Tender to palpation over all the left knee, was difficult due to superficial tenderness. .Mild knee valgus alignment, no instability to varus or valgus in extension , no DVT, spastic LLE, no extension lag and good patellar tracking Imaging: We have personally reviewed the following images and our independent interpretation is as follows: Radiographs of bilateral lower extremity standing alignment films taken 08/16/2023 showed L TKA with no evidence of gross loosening or subsidence overall valgus alignment of the Left knee , good alignment of the components possible previous valgus alignment of the left lower extremity, Imaging was reviewed by me, and findings were reviewed with the patient. Assessment/Plan Porter Maravilla is a 38 y.o. year old male with Painful LEFT TKA , history of back problems, negative inflammatory markers Status post total left knee replacement Pain due to total left knee replacement, initial encounter ([facility]) - I reviewed the previous notes from [facility]. Discussed with the patient I discussed with the patient that his knee replacement is well fixed no evidence of loosening and discussed with the patient that I don't think his symptoms will get better with surgery I don't he is a candidate for revision surgery , his components are well aligned however he has an overall valgus alignment of his knee however I don't think that is causing his symptoms which appears to be a nerve pain possible neuroma. Recommended PT and pain management. Patient was not happy and he insisted that he needs surgery due to his valgus alignment. Jurgen Scott MD [facility] 08-16-2023 Note Attestation signed by Damaris Perez MD at 08/16/2023 6:05 PM I personally saw and examined the patient on the same date of service as resident/fellow . I discussed the findings and therapeutic plan with the resident/fellow . I agree with the documentation, except for any edits/updates below. Teaching Physician's Revisions: No revisions Orthopedic Surgery Subjective Pain of the Left Knee 08/16/23 Porter Maravilla is a 38 y.o. male presenting for evaluation of LEFT knee pain Patient presents as a new patient evaluation of left knee pain. He had a total knee replacement done by Dr. Gregorio about a year ago, states he had prior meniscus surgeries and afterwards his knee went on to degenerative arthritis at quite a young age. After his total knee about a year ago, he has had persistent pain and difficulty with using the knee as well as symptomatic buckling and instability. He also has significant valgus deformity of the leg. He has seen numerous providers in the past, he recently had periprosthetic joint infection ruled out by [facility] via inflammatory markers. He is seen here for consideration of another opinion regarding his left knee. States his pain and dysfunction is debilitating. Review of Systems unremarkable aside from what is noted in HPI Patient History Past Surgical History: Procedure Laterality Date KNEE SURGERY Left Past Medical History: Diagnosis Date Dislocated elbow Epilepsy ([facility]) Objective General: There is no height or weight on file to calculate BMI. No acute distress, comfortable Respiratory: Unlabored breathing with normal rate, no cough Cardiovascular: Warm well perfused extremities Psych: Appropriate mood behavior Left Knee: Inspection- no ecchymosis, no edema, mild effusion. Prior surgical incision well healed Tender to palpation over joint line and MCL. Obvious knee valgus alignment Knee ROM: Extension- 5??? short of full extension Flexion- 110??? Strength: Knee Flexion 5/5 Knee Extension 5/5 Ankle Dorsiflexion 5/5 Ankle Plantarflexion 5/5 Sensation: intact over superficial peroneal, deep peroneal and tibial nerve distributions Gait: heel toe pattern, antalgic Imaging: We have personally reviewed the following images and our independent interpretation is as follows: Radiographs of bilateral lower extremity standing alignment films taken today 08/16/23 demonstrate(s) valgus left total knee alignment Imaging was reviewed and interpreted by me, and findings were reviewed with the patient. Assessment/Plan Porter Maravilla is a 38 y.o. year old male with Pain due to total left knee replacement, initial encounter ([facility]) Status post total left knee replacement -Had discussion with patient regarding options moving forward. Due to significant persistent pain and deformity from his prior total knee, we will have him obtain bilateral alignment standing films today of his lower extremities to get a better sense of what his deformity looks like as he may require osteotomy to correct this in the future. Will obtain this on the way out of clinic today. -Referral to Dr. Scott for consideration of revision total knee in this complex patient. -Return to clinic with Dr. Perez on as-needed basis. The patient understands and agrees to the management plan, and all patient questions have been answered to his/her satisfaction. Moe Sanders MD By using the attestations below, the signing clinician agrees that I have read and verify that the documentation has been personally reviewed by me and ensure that the documentation accurately reflects the encounter. GC: I personally saw this patient on the day of the encounter, performed the mejia portion(s) of the service and participated in the management and confirm the resident's documentation. Please note there may be an additional personal documentation from me. [facility] 08-02-2023 Note HNO ID: [id number] Author: Pooja Cordon MD Service: ? Author Type: Physician Type: Progress Notes Filed: 08/09/2023 9:35 PM Note Text: [facility] Date 08/02/23 I have communicated my name and active licensure. The patient's identity and physical location were verified at the time of this visit. Either the patient or their legal outbound telemarketing representative has been informed of the risks and benefits of -- and alternatives to -- treatment through a remote evaluation and consents to proceed with the evaluation remotely. This 38 year old living with significant other disabled x 2019 years ( for depression and pain) lives with significant other and son in [facility]. The patient seen for psychiatric diagnostic evaluation. He was referred by Fuad Pierce [address] [facility] [id number]. This consultation was shared with the referral source via the [facility] electronic medical record. The patients understanding of the reason for referral is to assess the need for a rehabilitation program. Chief complaints: Chronic pain, stress Aggravating factors: activities Alleviating factors: rest Current pain level is 9/10. Pain varies from 7 to 10/10 Present Illness: Pt is a 38 Y/O man with PMHx sig for S/P total knee replacement (left knee), Seizure, Migraine, Lumbar spondylolisthesis . PPHx sig for SAD unspecified who comes to this initial psychiatric evaluation in context of chronic pain. Pt reports that he had an attempt to hurt himself in Apr. That he was referred to Pain Management , saw Shea Plasencia CNP who referred him to the chronic pain program Reports that 4 yrs ago in January he slipped in mud and tore meniscus in left knee. That he has PT. That he had MRI, had surgery. That he has Total knee replacement ( left) may 2022. That since then his knee has not healed right, I fall a lot that he tore meniscus in Rt Knee. That he also has had a bone scan. That it is difficult for him to walk. That he is still having falls. That he is ref to another Orthopedic surgeon. That different surgeons give conflicting information and that has been a source of stress for him. That he has pain on the inside of both knees, majority on left knee. That he completed PT 1 month ago. That the pain is stabbing, the pain in daily. The pain radiates to the toes and towards the hips as well. That he has crutches and a cane when he goes out for long periods of time. That he has pain in hips and ankles, pain is sore like pain. Typical day: That he gets up ay 6:30 AM , he gets his son ( 12 yrs old) ready for school. That he tries to do some stretches, PT. He uses heat on the knee. He tries to walk a little. Pain is worse as the day goes on. He spends his time just tending to the knees. From 5-7 PM he tries to lay down. 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 That he does grocery shopping when his pain is not high. That he cannot go out much because the knee starts to hurt. That in 2010 he injured his back, fell while playing basketball. That he has back in 2019. That he was doing OK with the back pain after surgery but with the bad posture the pain has been bad again. That he was diagnosed with depression and anxiety when he was about 27 yrs. That in 2014 he had a suicidal attempt ( back injury just happened, pressure of life ,2 yr old child He started drinking and tried to take sleeping pills, that he had thought to hang himself.That he called his fiance to let her know that he had taken pills. That he was admitted to the psychiatric hospital. He was diagnosed with Bipolar 1 and anxiety. That in 2018 he had thoughts to hurt himself so he went to his Counsellor to let him know how he was feeling. That he was admitted to the hospital and was diagnosed with Schizoaffective disorder. I had suicidal ideation, I did not have hallucinations paranoia about making decisions That his brian is impulsiveness in spending money, I buy shoes If I am down I tend buy something so I have something to look forward too Current medications Straterra 80 mg daily ( been on it x 1 yr) Seroquel 400 mg at night x 2- 3 yrs Trazodone 100 mg at bedtime ( x 2 -3 yrs with seroquel) Lorazepam 0.5 mg TID ( for anxiety , from psychiatrist) Lamictal 100 mg BID ( for seizures, have had seizure since I was a child, no seizure in over 1 yr) Prozac 80 mg daily Prazosin 1 mg at bedtime ( I have vivid dreams) Is getting meds from Jesica Seth CNP in [place] ( been seeing her x 2 yrs) He is following up in [facility]. Therapist is Elizabeth Reilly. He sees her 2 times a week. Reports that he has taken Cymbalta and gabapentin ( reports that he was on gabapentin x 3 months , cymbalta x 4 month, ? Did not help) Spine Red Flag Porter (more content not included)... [facility] 08-02-2023 History of Present illness Narrative [facility] Date 08/02/23 I have communicated my name and active licensure. The patient's identity and physical location were verified at the time of this visit. Either the patient or their legal outbound telemarketing representative has been informed of the risks and benefits of -- and alternatives to -- treatment through a remote evaluation and consents to proceed with the evaluation remotely. This 38 year old living with significant other disabled x 2019 years ( for depression and pain) lives with significant other and son in [facility]. The patient seen for psychiatric diagnostic evaluation. He was referred by Fuad Pierce [address] [facility] [address]. This consultation was shared with the referral source via the [facility] electronic medical record. The patients understanding of the reason for referral is to assess the need for a rehabilitation program. Chief complaints: Chronic pain, stress Aggravating factors: activities Alleviating factors: rest Current pain level is 9/10. Pain varies from 7 to 10/10 Present Illness: Pt is a 38 Y/O man with PMHx sig for S/P total knee replacement (left knee), Seizure, Migraine, Lumbar spondylolisthesis . PPHx sig for SAD unspecified who comes to this initial psychiatric evaluation in context of chronic pain. Pt reports that he had an attempt to hurt himself in Apr. That he was referred to Pain Management , saw Shea Plasencia CNP who referred him to the chronic pain program Reports that 4 yrs ago in January he slipped in mud and tore meniscus in left knee. That he has PT. That he had MRI, had surgery. That he has Total knee replacement ( left) may 2022. That since then his knee has not healed right, I fall a lot that he tore meniscus in Rt Knee. That he also has had a bone scan. That it is difficult for him to walk. That he is still having falls. That he is ref to another Orthopedic surgeon. That different surgeons give conflicting information and that has been a source of stress for him. That he has pain on the inside of both knees, majority on left knee. That he completed PT 1 month ago. That the pain is stabbing, the pain in daily. The pain radiates to the toes and towards the hips as well. That he has crutches and a cane when he goes out for long periods of time. That he has pain in hips and ankles, pain is sore like pain. Typical day: That he gets up ay 6:30 AM , he gets his son ( 12 yrs old) ready for school. That he tries to do some stretches, PT. He uses heat on the knee. He tries to walk a little. Pain is worse as the day goes on. He spends his time just tending to the knees. From 5-7 PM he tries to lay down. 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 That he does grocery shopping when his pain is not high. That he cannot go out much because the knee starts to hurt. That in 2010 he injured his back, fell while playing basketball. That he has back in 2019. That he was doing OK with the back pain after surgery but with the bad posture the pain has been bad again. That he was diagnosed with depression and anxiety when he was about 27 yrs. That in 2014 he had a suicidal attempt ( back injury just happened, pressure of life ,4 yr old child He started drinking and tried to take sleeping pills, that he had thought to hang himself.That he called his fiance to let her know that he had taken pills. That he was admitted to the psychiatric hospital. He was diagnosed with Bipolar 1 and anxiety. That in 2018 he had thoughts to hurt himself so he went to his Counsellor to let him know how he was feeling. That he was admitted to the hospital and was diagnosed with Schizoaffective disorder. I had suicidal ideation, I did not have hallucinations paranoia about making decisions That his brian is impulsiveness in spending money, I buy shoes If I am down I tend buy something so I have something to look forward too Current medications Straterra 80 mg daily ( been on it x 1 yr) Seroquel 400 mg at night x 2- 3 yrs Trazodone 100 mg at bedtime ( x 2 -3 yrs with seroquel) Lorazepam 0.5 mg TID ( for anxiety , from psychiatrist) Lamictal 100 mg BID ( for seizures, have had seizure since I was a child, no seizure in over 1 yr) Prozac 80 mg daily Prazosin 1 mg at bedtime ( I have vivid dreams) Is getting meds from Jesica Seth CNP in [place] ( been seeing her x 2 yrs) He is following up in [facility]. Therapist is Elizabeth Reilly. He sees her 2 times a week. Reports that he has taken Cymbalta and gabapentin ( reports that he was on gabapentin x 3 months , cymbalta x 4 month, ? Did not help) Spine Red Flag Porter Maravilla has no red flag symptoms. Previous Treatment: PT, medications, surgery. Medications tried: As above Current Medications: Current Outpatient Medications Medication Sig atomoxetine (STRATTERA) 60 mg capsule Take 60 mg by mouth once daily. FLUoxetine (PROZAC) 40 mg capsule Take 80 mg by mouth once daily. LORazepam (ATIVAN) 0.5 mg Take 0.5 mg by mouth three times daily. prazosin (MINIPRESS) 1 mg cap Take 1 mg by mouth daily at bedtime. hydrOXYzine HCl (ATARAX) 25 mg tablet 25 mg three times daily as needed. lamoTRIgine (LAMICTAL) 100 mg tablet 100 mg twice daily. traZODone (DESYREL) 50 mg tablet 100 mg daily at bedtime. QUEtiapine (SEROQUEL) 400 mg tablet Take 800 mg by mouth daily at bedtime. ibuprofen (MOTRIN) 800 mg tablet Take 800 mg by mouth every 8 hours as needed. No current facility-administered medications for this visit. PAST MEDICAL HISTORY Diagnosis Date Arachnoid cyst Bipolar disorder (HCC) Depression Epilepsy (HCC) History of high blood pressure Migraines PAST SURGICAL HISTORY Procedure Laterality Date ARTHROSCOPY KNEE DIAGNOSTIC W/WO SYNOVIAL BX SPX Left PAST SURGICAL HISTORY OF lumbar fusion [facility]. All prescriptions have been APPROPRIATELY filled. No suspicious activity was identified. Pooja Cordon MD Functional Limitations: The patient has been unable to work since May 2022( Is allowed to work a few hours). Time spent reclining is a lot of the time hours/day (includes time in bed, recliner, sofa, ottoman, etc.). Patient-Entered Data: Pain Recovery Scores No Data LBP over last 6 months - Ongoing back pain problem - START back screen total score - START back screen distress score - START back screen risk score - Oswestry disability index score - PCS rumination subscore - PCS magnification subscore - PCS helplessness subscore - PCS total score - PHQ-9 05/31/2023 02/22/2023 Score 26 27 No flowsheet data found. PROMIS Global Health - (T-Scores - the mean of general population = 50. Five points is a clinically meaningful difference.) 05/31/2023 02/22/2023 Physical T-Score 19.9 19.9 Mental T-Score 21.2 21.2 No flowsheet data found. Non-medical stresses include work difficulties and medical problems. Family involvement: is appropriate/helpful and supportive Financial Status: receives monthly disability income. REVIEW OF SYSTEMS: No reports of any chest pain, no SOB, pain on knees. Allergies: Penicillins, Toradol [Ketorolac], and Tramadol Psychiatric illness: As above Substance use: Nicotine: Quit in 2019 Alcohol:Not had a drink in 3 yrs. Quit because alcohol made depression worse Recreational drugs: Denied Prescription medications: Lorazepam, gabapentin FAMILY HISTORY: Substance use disorders: No Psychiatric illness: No Developmental History: The patient was reared by mother in [place]. Moved to [place] 20 yrs ago. Don't know dad. He has a brother and sister younger from his mother. Nurture was fair. Discipline was unclear. Abuse, somatization, and serious disciplinary problems were reported. There were major childhood traumatic events of emotional trauma. We got evicted a lot,did not know when the police were going to show up. Socialization was fair. Cousin killed himself 15 minutes after calling pt. I blamed myself I don't feel like I belong, like I am wanted Educational level: <12 yrs Average grades were bare minimum' The patient is with his significant other ( mother of his son ) x 16 yrs. 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 Mental status: He was fully cooperative. Eye contact was fair. Mood: pain, stress Affect was appropriate. Speech was spontaneous and fluent without dysarthria. Thoughts were logical and relevant without delusional thinking. NO SI/HI/intent/plans. Perception: NO auditory or visual hallucinations. .Somatic preoccupation was moderate. Judgment and insight were fair. Attention span and concentration appeared normal. was oriented to time, place and person. ASSESSMENT: Chronic Pain Syndrome Pain disorder associated with medical and psychological factors. Major Depressive disorder, mod, rec Generalized anxiety disorder. Chronic use of benzodiazepines H/O Bipolar disorder. PLAN: Medical: Further evaluation: as per pain management Therapies: cbt, mindfulness, meditation Medications: will not take over prescriptions till pt starts VIOP Interventions: as per pain management Infusions: on list Nutrition: yes Rehabilitation: Pain Psychology: yes TREK for Success: yes Back on TREK: cont to assess CPNP: have discussed with pt the need to be off benzodiazepines. Follow-up: 1 month I spent a total of 60 minutes on the date of the service which included preparing to see the patient, [id number] patient care, completing clinical documentation, obtaining and/or reviewing separately obtained history, performing a medically appropriate examination, counseling and educating the patient/family/caregiver, ordering medications, tests, or procedures, communicating with other HCPs (not separately reported), independently interpreting results (not separately reported), communicating results to the patient/family/caregiver, and care coordination (not separately reported). The patient is on chronic benzodiazepine therapy. . Would recommend discussion with prescribing provider to consider wean and elimination of this class of medication. Maintain contact by phone or MyChart. documented in this encounter [facility] 07-02-2023 Note HNO ID: [id number] Author: Nelda Sheriff APRN.CNP Service: ? Author Type: Nurse Practitioner Type: Progress Notes Filed: 07/02/2023 12:25 PM Note Text: This is an Express Care eVisit note for Porter Maravilla Colin/Questionnaire reviewed The chief complaint for the visit - Patient presents with: Back Pain Saw Ortho today Recommendations/Treatment plan - See My Chart Message to patient Time spent <1 minute Nelda Sheriff APRN.CNP [facility] 07-02-2023 History of Present illness Narrative This is an Express Care eVisit note for Porter Maravilla Colin/Questionnaire reviewed The chief complaint for the visit - Patient presents with: Back Pain Saw Ortho today Recommendations/Treatment plan - See My Chart Message to patient Time spent <1 minute Nelda Sheriff APRN.CNP documented in this encounter [facility] 06-28-2023 Note HNO ID: [id number] Author: Fuad Pierce PA-C Service: ? Author Type: Physician Senior Cost Estimator Type: Progress Notes Filed: 06/28/2023 10:11 PM Note Text: [facility] [place] June 28, 2023 Porter Maravilla is a 37 year old partnered male, not working, only volunteering, who lives with significant other and son (12 yoa) in [place], [place]. He was referred by Shea Plasencia [address] [id number]. Consultation requested by Luis Angel for an opinion regarding Mr. Porter Maravilla, and my final recommendations will be communicated back to the requesting physician by way of shared medical record or letter via [place] mail. PDMP website checked and validated. All prescriptions have been APPROPRIATELY filled. No suspicious activity was identified. 06/28/2023 by Fuad Pierce PA-C Chief complaint: left knee pain SUBJECTIVE: Patient presents with complaints of left knee pain. Complains of left hip pain x 1 month. Notes intermittent shooting pain down his left leg from his knee to his toes. States that the pain radiates upwards from his left knee to his groin too. Complains of hamstring pain. States that his severe left knee pain started after having left knee surgery and then a subsequent fall. . Reports that he had a left knee surgery due to a torn meniscus. States that 5 weeks after the knee surgery, he had a fall that increased his pain. Reports 15 falls due to the knee buckling under him. Will use a cane prn Reports that he had a fall in December,, and hurt his right knee - has a torn mensicus Reports numbness or tingling in left toes. States that the pain is constant in his knee. Describes the pain as stabbing or feels like it is snapping Pain severity 8-10/10 Aggravating factors - walking, sitting Does not sleep well due to pain Alleviating factors - elevating the knee, heat Denies any new bowel or bladder dysfunctions Denies any dexterity issues Interventions - currently in PT Medications - taking Lorazepam, NSAID prn, Robaxin prn Has tried gabapentin 300 mg bid - no improvement, flexeril - slept a lot, celebrex Hx of spine surgery - back fusion 2019 - due to ruptured disc - used to play basketball. Hx of left total knee replacement at [facility] by dr Smyth May 2022 - due to torn meniscus Has had lumbar CLARA Oct 2022, Knee injection Feb 2023 - no improvement of pain PMH - migraines - arachnoid cyst, schizoaffective bipolar disorder Spine Red Flag Porter Maravilla has no red flag symptoms. Anesthesia: denies Schizophrenia: schizoaffective bipolar disorder - taking Lamictal, Prozac, Seroquel, lorazepam - denies any history of hallucinations - admits to manic episodes 4-5x month - lasts 1 hour - the longest it lasted was one week : n/a CHF: denies Uncontrolled HTN: denies Recent HI: denies Arrythmias: denies Afib: denies Hyperthyroid: denies Aortic Stenosis: denies Liver Failure: denies Increased ICP: denies Average pain over the last 7 days: 8-06/22 Previous pain treatments: physical therapy, medications, TENS, surgery, injections Functional Limitations: The patient has been unable to work since May. Time spent reclining is 50 percent of hours/day (includes time in bed, recliner, sofa, ottoman, etc.). Wellness: How would you describe your diet: good - eating 2 meals each day. Drinking dr pepper every other day, water How many days a week do you exercise: PT and HEP How many hours do you sleep a night: going to bed around 930 pm and getting up around 445 am. Will wake up 2-3x night due to pain. Emotional Symptoms: include sadness, depression, anxiety, frustration, and irritability The patient has loss of interest, energy, and sleep The patient denies suicidal ideation. Non-medical stresses: Include relationship conflicts and loss of job Family involvement: is appropriate/helpful and supportive Financial Status: partner works Allergies: Reviewed in the EMR Current Medications: Reviewed in the EMR PAST MEDICAL HISTORY Diagnosis Date Arachnoid cyst Bipolar disorder (HCC) Depression Epilepsy (HCC) History of high blood pressure Migraines PAST SURGICAL HISTORY Procedure Laterality Date ARTHROSCOPY KNEE DIAGNOSTIC W/WO SYNOVIAL BX SPX Left PAST SURGICAL HISTORY OF lumbar fusion REMOVAL GALLBLADDER TONSILLECTOMY HX Psychiatric History: Depression and anxiety Social History Tobacco Use Smoking status: Former Types: Cigarettes Smokeless tobacco: Never Vaping Use Vaping Use: current everyday user Substance Use Topics Alcohol use: Not Currently Drug use: Never Substance use: He has not used tobacco since 2019. @[email or web address]@ denies current and past significant alcohol use Drug use: There is no history of recreational substance use. . Family History FAMILY HISTORY Problem Relation Age of (more content not included)... [facility] 06-28-2023 History of Present illness Narrative [facility] [place] June 28, 2023 Porter Maravilla is a 37 year old partnered male, not working, only volunteering, who lives with significant other and son (12 yoa) in [place], [place]. He was referred by Shea Plasencia [address] [id number]. Consultation requested by Luis Angel for an opinion regarding . Porter Maravilla, and my final recommendations will be communicated back to the requesting physician by way of shared medical record or letter via [place] mail. PDMP website checked and validated. All prescriptions have been APPROPRIATELY filled. No suspicious activity was identified. 06/28/2023 by Fuad Pierce PA-C Chief complaint: left knee pain SUBJECTIVE: Patient presents with complaints of left knee pain. Complains of left hip pain x 1 month. Notes intermittent shooting pain down his left leg from his knee to his toes. States that the pain radiates upwards from his left knee to his groin too. Complains of hamstring pain. States that his severe left knee pain started after having left knee surgery and then a subsequent fall. . Reports that he had a left knee surgery due to a torn meniscus. States that 5 weeks after the knee surgery, he had a fall that increased his pain. Reports 15 falls due to the knee buckling under him. Will use a cane prn Reports that he had a fall in December,, and hurt his right knee - has a torn mensicus Reports numbness or tingling in left toes. States that the pain is constant in his knee. Describes the pain as stabbing or feels like it is snapping Pain severity 8-10/10 Aggravating factors - walking, sitting Does not sleep well due to pain Alleviating factors - elevating the knee, heat Denies any new bowel or bladder dysfunctions Denies any dexterity issues Interventions - currently in PT Medications - taking Lorazepam, NSAID prn, Robaxin prn Has tried gabapentin 300 mg bid - no improvement, flexeril - slept a lot, celebrex Hx of spine surgery - back fusion 2019 - due to ruptured disc - used to play basketball. Hx of left total knee replacement at [facility] by dr Smyth May 2022 - due to torn meniscus Has had lumbar CLARA Oct 2022, Knee injection Feb 2023 - no improvement of pain PMH - migraines - arachnoid cyst, schizoaffective bipolar disorder Spine Red Flag Porter Maravilla has no red flag symptoms. Anesthesia: denies Schizophrenia: schizoaffective bipolar disorder - taking Lamictal, Prozac, Seroquel, lorazepam - denies any history of hallucinations - admits to manic episodes 4-5x month - lasts 1 hour - the longest it lasted was one week : n/a CHF: denies Uncontrolled HTN: denies Recent HI: denies Arrythmias: denies Afib: denies Hyperthyroid: denies Aortic Stenosis: denies Liver Failure: denies Increased ICP: denies Average pain over the last 7 days: 8-06/22 Previous pain treatments: physical therapy, medications, TENS, surgery, injections Functional Limitations: The patient has been unable to work since May. Time spent reclining is 50 percent of hours/day (includes time in bed, recliner, sofa, ottoman, etc.). Wellness: How would you describe your diet: good - eating 2 meals each day. Drinking dr pepper every other day, water How many days a week do you exercise: PT and HEP How many hours do you sleep a night: going to bed around 930 pm and getting up around 445 am. Will wake up 2-3x night due to pain. Emotional Symptoms: include sadness, depression, anxiety, frustration, and irritability The patient has loss of interest, energy, and sleep The patient denies suicidal ideation. Non-medical stresses: Include relationship conflicts and loss of job Family involvement: is appropriate/helpful and supportive Financial Status: partner works Allergies: Reviewed in the EMR Current Medications: Reviewed in the EMR PAST MEDICAL HISTORY Diagnosis Date Arachnoid cyst Bipolar disorder (HCC) Depression Epilepsy (HCC) History of high blood pressure Migraines PAST SURGICAL HISTORY Procedure Laterality Date ARTHROSCOPY KNEE DIAGNOSTIC W/WO SYNOVIAL BX SPX Left PAST SURGICAL HISTORY OF lumbar fusion REMOVAL GALLBLADDER TONSILLECTOMY HX Psychiatric History: Depression and anxiety Social History Tobacco Use Smoking status: Former Types: Cigarettes Smokeless tobacco: Never Vaping Use Vaping Use: current everyday user Substance Use Topics Alcohol use: Not Currently Drug use: Never Substance use: He has not used tobacco since 2019. @[email or web address]@ denies current and past significant alcohol use Drug use: There is no history of recreational substance use. . Family History FAMILY HISTORY Problem Relation Age of Onset Diabetes Maternal Grandfather Hypertension Maternal Grandfather ROS was positive for: Fatigue Left knee pain Left hip pain All of the other systems reviewed were negative. OBJECTIVE: PHYSICAL EXAM: GENERAL APPEARANCE: Well appearing, well-hydrated, well nourished and alert SKIN: Head, neck, trunk, and extremities dry, intact and without lesions NECK: negative findings BACK: motor and sensory appear to be normal LUNGS: even and non-labored breathing, normal chest excursion HEART: Edema: No MUSCULOSKELETAL: Spine range of motion normal. Muscular strength intact. NEURO/PSYCH: cranial nerves 2-12 intact, speech normal, mental status intact Antalgic gait Left knee healed surgical incisional scar IMAGING: XR bilateral knee - 01/13/23 - small patellar osteophyte, otherwise normal right knee EMG 01/13/23 - reduction in amplitude of left EBD motor response, otherwise normal ASSESSMENT: History of left knee replacement (primary encounter diagnosis) Chronic pain of left knee Bipolar 1 disorder (hcc) Anxiety Patient is a 37 year old male who presents with left knee pain that started after having knee surgery one year ago. Has tried conservative treatments and injections without much pain relief. Discussed the comprehensive pain recovery program and ketamine infusions - discussed potential risks and benefits. Patient verbalized understanding. Discussed the nutritional program Discussed the importance of optimizing diet, exercise and sleep. Eat 3 healthy meals each day, during the day, minimize snacking and sugar. Drink plenty of fluids. Do some kind of physical activity for 20-30 mins each day. Discussed good sleep hygiene and the importance of sleeping on a schedule. PLAN: Further evaluation: follow up with ortho Nutrition: work to optimize Therapies: continue PT and HEP Sleep: work to optimize Medications: start Naltrexone 0.5 mg q day - discussed potential SE and benefits Continue with other prescribed medications as directed Interventions: none Infusions: yes - consult placed 8. Pain Psychology: yes - consult placed 9. Consult to Dr Cordon Review, Ask, Review: yes Follow-up: in 4 weeks for medication management Fuad Pierce PA-C I spent a total of 60 minutes on the date of the service which included preparing to see the patient, [id number] patient care, completing clinical documentation, obtaining and/or reviewing separately obtained history, performing a medically appropriate examination, counseling and educating the patient/family/caregiver, and ordering medications, tests, or procedures. Important Patient Information: 1. To schedule Pain Recovery appointments or post-injection office visits, please call: [phone] 2. The nursing staff and medical assistants are an integral part of your pain recovery team and will be handling your phone calls and inquiries. 3. Your study results and treatment plan will be discussed during a follow-up appointment. If you do not have a follow-up appointment and wish to discuss any issues directly with me, please call: [phone] to set-up an appointment. 4. MyChart is best used for refill requests or yes or no questions. Anything more complicated will likely require a follow-up appointment that you can schedule by [phone]. 5. It is the practice of the Department to not fill disability or any other insurance-related forms/documentation. All of the office notes, study results, and other documentation as part of your evaluation will be available to you and to your Primary Care Physician (PCP). Use of this material to complete such forms will be at the discretion of your PCP/referring physician. 6. If you are scheduled for a ketamine infusion, you will be contacted regarding specific scheduling instructions in the future by our department. There is no need to contact our department regarding the scheduling process or your estimated wait; you will be contacted once there is an opening. documented in this encounter [facility] 06-11-2023 Note HNO ID: [id number] Author: Shea Plasencia APRN.SUPERVISOR [employer] Service: ? Author Type: Nurse Practitioner Type: Progress Notes Filed: 06/11/2023 3:53 PM Note Text: SPINE SURGERY ESTABLISHED VISIT This is a virtual visit using Powered Management Advisor Video Call. It required patient-provider interaction for the medical decision making as documented below. I have communicated my name and active licensure. The patient's identity and physical location were verified at the time of this visit. Either the patient or their legal outbound telemarketing representative has been informed of the risks and benefits of -- and alternatives to -- treatment through a remote evaluation and consents to proceed with the evaluation remotely. DATE OF SERVICE: 06/11/2023 DATE OF LAST VISIT: 01/13/2023 SUBJECTIVE: HPI:Porter Maravilla is a 37 year old male presenting via virtual visit. Since last visit started PT has completed 4 weeks with minimal improvement. PT therapist thinks issue might be with his MCL, PT notes in scanned docs. Recently saw Dr Gordon who is recommending Lumbar Sympathetic Block: Left; He will be seeing his knee surgeon on 06/29. I will send in refill for muscle relaxant. Discussed CPRP with patient he is agreeable to this. MEDICATIONS: methocarbamol (ROBAXIN) 750 mg tablet TAKE 1 TABLET BY MOUTH 4 TIMES A DAY NEEDED diclofenac (VOLTAREN) 1 % topical gel Apply judiciously 2-3 times per day left knee - read package insert for max daily dosing instructions gabapentin (NEURONTIN) 300 mg capsule Take 1 capsule by mouth three times daily for 90 days. atomoxetine (STRATTERA) 60 mg capsule Take 60 mg by mouth once daily. FLUoxetine (PROZAC) 40 mg capsule Take 80 mg by mouth once daily. LORazepam (ATIVAN) 0.5 mg Take 0.5 mg by mouth three times daily. prazosin (MINIPRESS) 1 mg cap Take 1 mg by mouth daily at bedtime. celecoxib (CELEBREX) 200 mg capsule 200 mg once daily. hydrOXYzine HCl (ATARAX) 25 mg tablet 25 mg three times daily as needed. lamoTRIgine (LAMICTAL) 100 mg tablet 100 mg twice daily. lithium carbonate (ESKALITH) 300 mg capsule 300 mg three times daily with meals. QUEtiapine (SEROQUEL) 200 mg tablet Take 200 mg by mouth. traZODone (DESYREL) 50 mg tablet 100 mg daily at bedtime. QUEtiapine (SEROQUEL) 400 mg tablet Take 800 mg by mouth daily at bedtime. ibuprofen (MOTRIN) 800 mg tablet Take 800 mg by mouth every 8 hours as needed. pantoprazole sodium (PROTONIX ORAL) Take by mouth as needed. Patient Entered Questionnaires Spine Questions 02/22/2023 05/31/2023 06/09/2023 Pain Location: Other Other Leg Pain Duration: 6 months - 1 year - - Pain over last 6 months: Less than half the days in the past 6 months - - Symptoms from neck/cervical spine: No No No Employment Status: Other Disabled for reasons other than back pain - Involved in law suit/legal claim: No - - Spine Red Flags 05/31/2023 Any type of cancer: No Unexplained fever: No Bowel or bladder disfunction: No Unintentional weight loss: No Osteoporosis: No PROMIS Score Percentiles Physical Health 02/22/2023 05/31/2023 Physical Function Percentile 0 2 Sleep Percentile 0 0 Fatigue Percentile 0 0 Pain Interference Percentile 0 1 PROMIS SOCIAL ROLE SCORE 02/22/2023 05/31/2023 Social Role Satisfaction Percentile 69 1 PROMIS Global Health Scale 02/22/2023 05/31/2023 Physical Health Percentile 0 0 Mental Health Percentile 0 0 Percentiles provide an indication of how the patient's score ranks in relation to the general population. Higher percentile rankings indicate better function/quality of life. 50th percentile is the average of the general population and indicates half of respondents had a worse score. Depression Screening: PHQ-9 02/22/2023 05/31/2023 Score 27 26 PHQ-9 Self-harm Question 02/22/2023 05/31/2023 Thoughts that you would be better off , or of hurting yourself in some way 3 3 PHQ-9 Self-Harm (Item 9) response options: 0 Not at all 1 Several days 2 More than half the days 3 Nearly every day PHQ-9 Levels: 0-4 No to mild depression 5-9 Mild depression 10-14 Moderate depression 15-19 Moderately severe depression 20-27 Severe depression OBJECTIVE: PHYSICAL EXAM: LIMITED DUE TO VIRTUAL VISIT GENERAL APPEARANCE: Well nourished, well developed, and no apparent distress. NEURO PSYCH: Patient oriented to person, place, and time. Mood pleasant. Benign affect. ASSESSMENT/PLAN (M25.562, G89.29) Chronic pain of left knee (primary encounter diagnosis) (M62.838) Spasm of muscle (M79.605) Left leg pain (R26.81) Gait instability Porter Maravilla will continue with medical management of his/her condition. 1. Medications: Continue current medications 2. Follow up: 3 months PRN I spent a total of 24 minutes on the date of the service which included preparing to see the patient, [id number] patient care, completing clinical documentation, obtaining and/or reviewing separately obtained hi (more content not included)... [facility] 06-09-2023 Note HNO ID: [id number] Author: Kelle Gordon, DO Service: ? Author Type: Physician Type: Progress Notes Filed: 06/09/2023 2:53 PM Note Text: This is a virtual visit using Clear[employer] video visit. It required patient-provider interaction for the medical decision making as documented below. I have communicated my name and active licensure. The patient's identity and physical location were verified at the time of this visit. Either the patient or their legal outbound telemarketing representative has been informed of the risks and benefits of -- and alternatives to -- treatment through a remote evaluation and consents to proceed with the evaluation remotely. SUBJECTIVE HISTORY OF PRESENT ILLNESS: Porter Maravilla is a 37 year old male who presents with a chief complaint of left knee pain. Went back to PT as the surgeon recommended. PT believes it is his MCL and hamstring.PT Doesn't feel like PT is helping. Sharp spasms and can't sleep/ can't stand up. Still feels very depressed. PAIN EVALUATION 06/09/2023 1416 Pain Level: 10 Duration Amount of Time: 24 Duration Units: Hours YELLOW AND BLUE FLAGS YES-Neg Attitude; Back Pain is Disabling YES-Avoiding Activity (for Fear of Pain) YES-Depression or Anxiety Disorders YES-Social Problems No-Substance Use Disorder No-Job Dissatisfaction No-Financial Disincentives Patient Entered Questionnaires Spine Questions 02/22/2023 05/31/2023 06/09/2023 Pain Location: Other Other Leg Pain Duration: 6 months - 1 year - - Pain over last 6 months: Less than half the days in the past 6 months - - Symptoms from neck/cervical spine: No No No Employment Status: Other Disabled for reasons other than back pain - Involved in law suit/legal claim: No - - Spine Red Flags 05/31/2023 Any type of cancer: No Unexplained fever: No Bowel or bladder disfunction: No Unintentional weight loss: No Osteoporosis: No PROMIS Score Percentiles Physical Health 02/22/2023 05/31/2023 Physical Function Percentile 0 2 Sleep Percentile 0 0 Fatigue Percentile 0 0 Pain Interference Percentile 0 1 PROMIS SOCIAL ROLE SCORE 02/22/2023 05/31/2023 Social Role Satisfaction Percentile 69 1 PROMIS Global Health Scale 02/22/2023 05/31/2023 Physical Health Percentile 0 0 Mental Health Percentile 0 0 Percentiles provide an indication of how the patient's score ranks in relation to the general population. Higher percentile rankings indicate better function/quality of life. 50th percentile is the average of the general population and indicates half of respondents had a worse score. Depression Screening: PHQ-9 02/22/2023 05/31/2023 Score 27 26 PHQ-9 Self Harm 02/22/2023 05/31/2023 Question 9 Nearly every day Nearly every day PHQ-9 Self-Harm (Item 9) response options: 0 Not at all 1 Several days 2 More than half the days 3 Nearly every day PHQ-9 Levels: 0-4 No - mild depression 5-9 Mild depression 10-14 Moderate depression 15-19 Moderately severe depression 20-27 Severe depression ACTIVE PROBLEM LIST History of Left Knee Replacement Bilateral Chronic Knee Pain PAST MEDICAL HISTORY Diagnosis Date Arachnoid cyst Bipolar disorder (HCC) Depression Epilepsy (HCC) History of high blood pressure Migraines PAST SURGICAL HISTORY Procedure Laterality Date ARTHROSCOPY KNEE DIAGNOSTIC W/WO SYNOVIAL BX SPX Left PAST SURGICAL HISTORY OF lumbar fusion REMOVAL GALLBLADDER TONSILLECTOMY HX Social History Tobacco Use Smoking status: Former Types: Cigarettes Smokeless tobacco: Never Vaping Use Vaping Use: current everyday user Substance Use Topics Alcohol use: Not Currently Drug use: Never FAMILY HISTORY Problem Relation Age of Onset Diabetes Maternal Grandfather Hypertension Maternal Grandfather ALLERGIES Allergen Reactions Penicillins Swelling Toradol [Ketorolac] Other: See Comments seizure Tramadol Mental Status Change CURRENT MEDICATIONS: methocarbamol (ROBAXIN) 750 mg tablet TAKE 1 TABLET BY MOUTH 4 TIMES A DAY NEEDED diclofenac (VOLTAREN) 1 % topical gel Apply judiciously 2-3 times per day left knee - read package insert for max daily dosing instructions gabapentin (NEURONTIN) 300 mg capsule Take 1 capsule by mouth three times daily for 90 days. atomoxetine (STRATTERA) 60 mg capsule Take 60 mg by mouth once daily. FLUoxetine (PROZAC) 40 mg capsule Take 80 mg by mouth once daily. LORazepam (ATIVAN) 0.5 mg Take 0.5 mg by mouth three times daily. prazosin (MINIPRESS) 1 mg cap Take 1 mg by mouth daily at bedtime. celecoxib (CELEBREX) 200 mg capsule 200 mg once daily. hydrOXYzine HCl (ATARAX) 25 mg tablet 25 mg three times daily as needed. lamoTRIgine (LAMICTAL) 100 mg tablet 100 mg twice daily. lithium carbonate (ESKALITH) 300 mg capsule 300 mg three times daily with meals. QUEtiapine (SEROQUEL) 200 mg tablet Take 200 mg by mouth. traZODone (DESYREL) 50 mg tablet 100 mg daily at bedtime. QUEtiapine (more content not included)... [facility] 06-04-2023 Evaluation note Encounter Date Diagnosis Assessment Notes May, Chronic pain (ICD-10 - G89.29) Follow up as needed May, Left knee pain (ICD-10 - M25.562) 37 year old male here for follow up to discuss chronic pain. He voices complaints of left knee pain today. He continues physical therapy with minimal relief. He notes spasms to the hamstring in the left thigh. He states he is not currently a surgical candidate due to his age. I unfortunately do not have any other treatment options to offer him. He can continue physical therapy. I will prescribe a TENS unit with an attachment for the knee to use multiple times daily as needed. In the meantime he can use Lidocaine patches as needed. May, Status post left knee replacement (ICD-10 - Z96.652) Follow up as needed [facility] Other 09-19-2023 Miscellaneous Notes* Telephone Encounter - Mojgan Virgen RN - 06/01/2023 4:58 PM EDT VV offered to patient via . Awaiting reply. [place] Leach, RN Hydrogenation Still Operator June 01, 2023 4:58 PM * Telephone Encounter - Mojgan Virgen RN - 06/01/2023 2:22 PM EDT Visit held on 06/09/23 @ 220pm on Dr. Gordon's main campus schedule, if needed. Inquiry sent to for review. Mojgan Virgen, [place], RN Hydrogenation Still Operator June 01, 2023 2:22 PM * Telephone Encounter - Martha Brown - 06/01/2023 1:33 PM EDT Patient is calling in about info below [facility] M[facility] Notes* Telephone Encounter - Toribio Hammond PA-C - 04/30/2023 3:50 PM EDT Spoke with the patient told him to continue with his pain management care get his records and then he can see one of our oral surgeon for a third opinion if needed but as dictated by Dr. Macedo and myself. Pain work-up is probably coming from his back. Spine surgery needs to continue with care per the spine center and pain management. Toribio Hammond PA-C [facility]23 NoteHNO ID: [id number] Author: Shea Plasencia APRN.SUPERVISOR [employer]STALLATIONS Service: ? Author Type: Nurse Practitioner Type: Progress Notes Filed: 04/29/2023 8:05 AM Note Text: SPINE SURGERY ESTABLISHED VISIT This is a virtual visit using Audio only. It required patient-provider interaction for the medical decision making as documented below. I have communicated my name and active licensure. The patient's identity and physical location were verified at the time of this visit. Either the patient or their legal outbound telemarketing representative has been informed of the risks and benefits of -- and alternatives to -- treatment through a remote evaluation and consents to proceed with the evaluation remotely. Patient unable to log into my chart stated prompts were not letting him, DATE OF SERVICE: 04/28/2023 DATE OF LAST VISIT: 01/13/2023 SUBJECTIVE: HPI:Porter Maravilla is a 37 year old male presenting alone via audio only. Expressing frustrations and disappointment with his orthopedic appointment who reviewed his case and recommended him to continue working on his quad strength. Discussed briefly that we have a chronic pain recovery center with pain psychology that I think he can greatly benefit from. Patient stated that he called his counselor after his appointment yesterday due to suicidal ideation after ortho appointment. Patient expressed he felt shut down by ortho MD. Counselor recommended he find someone to get his pain under control. Patient states he must find a way for his pain to improve as he stated he is dangerous when he has these negative thoughts and can flip quick at the drop of a water Patient states that he has frequent thoughts of suicide ideation. Patient stated that sometimes he thinks about Jumping out of the car into traffic or in front of a train. He feels at times he cannot live with this pain anymore and if his life continues this way he might not be here in few months I expressed that he should go to the ER but patient declined stating that the reason he feels this way is because of the pain and that fact that he cannot walk due to the pain. Patient states he feels worthless When asked about a plan he states that he doesn't want to worry me denies that he has weapons or guns in the house, currently there with his sons mother and his son. I expressed my concern for his safety and well being and told him if he declined to go to the ER for his safety as his provider I am obligated to call for a wellness check on him at his home. MEDICATIONS: methocarbamol (ROBAXIN) 750 mg tablet TAKE 1 TABLET BY MOUTH 4 TIMES A DAY NEEDED diclofenac (VOLTAREN) 1 % topical gel Apply judiciously 2-3 times per day left knee - read package insert for max daily dosing instructions gabapentin (NEURONTIN) 300 mg capsule Take 1 capsule by mouth three times daily for 90 days. atomoxetine (STRATTERA) 60 mg capsule Take 60 mg by mouth once daily. FLUoxetine (PROZAC) 40 mg capsule Take 80 mg by mouth once daily. LORazepam (ATIVAN) 0.5 mg Take 0.5 mg by mouth three times daily. prazosin (MINIPRESS) 1 mg cap Take 1 mg by mouth daily at bedtime. celecoxib (CELEBREX) 200 mg capsule 200 mg once daily. hydrOXYzine HCl (ATARAX) 25 mg tablet 25 mg three times daily as needed. lamoTRIgine (LAMICTAL) 100 mg tablet 100 mg twice daily. lithium carbonate (ESKALITH) 300 mg capsule 300 mg three times daily with meals. QUEtiapine (SEROQUEL) 200 mg tablet Take 200 mg by mouth. traZODone (DESYREL) 50 mg tablet 100 mg daily at bedtime. QUEtiapine (SEROQUEL) 400 mg tablet Take 800 mg by mouth daily at bedtime. ibuprofen (MOTRIN) 800 mg tablet Take 800 mg by mouth every 8 hours as needed. pantoprazole sodium (PROTONIX ORAL) Take by mouth as needed. Patient Entered Questionnaires Spine Questions 02/22/2023 Pain Location: Other Pain Duration: 6 months - 1 year Pain over last 6 months: Less than half the days in the past 6 months Symptoms from neck/cervical spine: No Employment Status: Other Involved in law suit/legal claim: No PROMIS Score Percentiles Physical Health 02/22/2023 Physical Function Percentile 0 Sleep Percentile 0 Fatigue Percentile 0 Pain Interference Percentile 0 PROMIS SOCIAL ROLE SCORE 02/22/2023 Social Role Satisfaction Percentile 69 PROMIS Global Health Scale 02/22/2023 Physical Health Percentile 0 Mental Health Percentile 0 Percentiles provide an indication of how the patient's score ranks in relation to the general population. Higher percentile rankings indicate better function/quality of life. 50th percentile is the average of the general population and indicates half of respondents had a worse score. Depression Screening: PHQ-9 02/22/2023 Score 27 PHQ-9 Self-harm Question 02/22/2023 Thoughts that you would be better off , or of hurting yourself in some way 3 PHQ-9 Self-Harm (Item 9) response options: 0 Not at all 1 Several days 2 More than half the days 3 (more content not included)...[facility]08-16-[facility] History of Present illness Narrative* Shea Plasencia APRN.SUPERVISOR [employer] INSTALLATIONS - 04/28/2023 1:00 PM EDT SPINE SURGERY ESTABLISHED VISIT This is a virtual visit using Audio only. It required patient-provider interaction for the medical decision making as documented below. I have communicated my name and active licensure. The patient's identity and physical location wereverified at the time of this visit. Either the patient or their legal outbound telemarketing representative has been informed of the risks and benefits of -- and alternatives to -- treatment through a remote evaluation andconsents to proceed with the evaluation remotely. Patient unable to log into my chart stated prompts were not letting him, DATE OF SERVICE: 04/28/2023 DATE OF LAST VISIT: 01/13/2023 SUBJECTIVE: HPI:Porter Maravilla is a 37 year old male presenting alone via audio only. Expressing frustrations and disappointment with his orthopedic appointment who reviewed his case and recommended him to continueworking on his quad strength. Discussed briefly that we have a chronic pain recovery center with pain psychology that I think he can greatly benefit from. Patient stated that he called his counselor after his appointment yesterday due to suicidal ideation after ortho appointment. Patient expressed he felt shut down by ortho MD. Counselor recommended he find someone to get his pain under control. Patient states he must find a way for his pain to improve as he stated he is dangerous when he has these negative thoughts and can flip quick at the drop of a water Patient states that he has frequent thoughts of suicide ideation. Patient stated that sometimes he thinks about Jumping out of the car into traffic or in front of a train. He feels at times he cannot live with this pain anymore and if his life continues this way he might not be here in few months I expressed that he should go to the ER but patient declined stating that the reason he feels this way is because of the pain and that fact that he cannot walk due to the pain. Patient states he feels worthless When asked about a plan he states that he doesn't want to worry me denies that he has weapons or guns in the house, currently there with his sons mother and his son. I expressed my concern for his safety and well being and told him if he declined to go to the ER for his safety as his provider I am obligated to call for a wellness check on him at his home. MEDICATIONS: methocarbamol (ROBAXIN) 750 mg tablet TAKE 1 TABLET BY MOUTH 4 TIMES A DAY NEEDED diclofenac (VOLTAREN) 1 % topical gel Apply judiciously 2-3 times per day left knee - read package insert for max daily dosing instructions gabapentin (NEURONTIN) 300 mg capsule Take 1 capsule by mouth three times daily for 90 days. atomoxetine (STRATTERA) 60 mg capsule Take 60 mg by mouth once daily. FLUoxetine (PROZAC) 40 mg capsule Take 80 mg by mouth once daily. LORazepam (ATIVAN) 0.5 mg Take 0.5 mg by mouth three times daily. prazosin (MINIPRESS) 1 mg cap Take 1 mg by mouth daily at bedtime. celecoxib (CELEBREX) 200 mg capsule 200 mg once daily. hydrOXYzine HCl (ATARAX) 25 mg tablet 25 mg three times daily as needed. lamoTRIgine (LAMICTAL) 100 mg tablet 100 mg twice daily. lithium carbonate (ESKALITH) 300 mg capsule 300 mg three times daily with meals. QUEtiapine (SEROQUEL) 200 mg tablet Take 200 mg by mouth. traZODone (DESYREL) 50 mg tablet 100 mg daily at bedtime. QUEtiapine (SEROQUEL) 400 mg tablet Take 800 mg by mouth daily at bedtime. ibuprofen (MOTRIN) 800 mg tablet Take 800 mg by mouth every 8 hours as needed. pantoprazole sodium (PROTONIX ORAL) Take by mouth as needed. Patient Entered Questionnaires Spine Questions 02/22/2023 Pain Location: Other Pain Duration: 6 months - 1 year Pain over last 6 months: Less than half the days in the past 6 months Symptoms from neck/cervical spine: No Employment Status: Other Involved in law suit/legal claim: No PROMIS Score Percentiles Physical Health 02/22/2023 Physical Function Percentile 0 Sleep Percentile 0 Fatigue Percentile 0 Pain Interference Percentile 0 PROMIS SOCIAL ROLE SCORE 02/22/2023 Social Role Satisfaction Percentile 69 PROMIS Global Health Scale 02/22/2023 Physical Health Percentile 0 Mental Health Percentile 0 Percentiles provide an indication of how the patient's score ranks in relation to the general population. Higher percentile rankings indicate better function/quality of life. 50th percentile is the average of the general population and indicates half of respondents had a worse score. Depression Screening: PHQ-9 02/22/2023 Score 27 PHQ-9 Self-harm Question 02/22/2023 Thoughts that you would be better off , or of hurting yourself in some way 3 PHQ-9 Self-Harm (Item 9) response options: 0 Not at all 1 Several days 2 More than half the days 3 Nearly every day PHQ-9 Levels: 0-4 No to mild depression 5-9 Mild depression 10-14 Moderate depression 15-19 Moderately severe depression 20-27 Severe depression OBJECTIVE: PHYSICAL EXAM: limited due to audio only call NEURO PSYCH: Patient oriented to person, place, and time. Patient expressed frustration and thoughts of self harm ASSESSMENT/PLAN (M79.605) Left leg pain (primary encounter diagnosis) (M25.562, G89.29) Chronic pain of left knee (M62.838) Spasm of muscle (R26.81) Gait instability (R45.851) Suicidal ideation Porter Maravilla will continue with medical management of his/her condition. Police arrived on patient'shome while I was still on the call and patient did not appreciate that I had police sent to check in on his wellness and safety. I reassured the patient that my first priority is his physical and mental health as well as his families and due to the thoughts he was expressing I am obligated per [facility] to call in a wellness check at his home as he declined to seek ER visit. I heard brief conversation via call that patient was having with police where he did tell that he has suicidal ideation often. The appointment was then ended as patient continued his discussion at home with police. Will have RNcall patient and check in at end of week. 1. Medications: Continue current medications 2. Follow up: scheduled virtual with Dr Gordon 04/29 I spent a total of 48 minutes on the date of the service which included preparing to see the patient, [id number] patient care, completing clinical documentation, obtaining and/or reviewing separately obtained history, performing a medically appropriate examination, counseling and educating the pat ient/family/caregiver, independently interpreting results (not separately reported), and communicating results to the patient/family/caregiver. SIGNATURE: Shea Plasencia APRN.CNP PATIENT NAME: Porter Maravilla DATE: April 28, 2023 TIME: 1:10 PM PAGER: documented in this encounterKettering Health08-09-2023 NoteHNO ID: [id number] Author: Viviana Macedo MD Service: ? Author Type: Physician Type: Progress Notes Filed: 04/26/2023 3:15 PM Note Text: Chief Complaint: No chief complaint on file. HPI: Patient is 37 year old male here for second opinion on left knee 37-year-old male presents for evaluation of left lower extremity pain status post left total knee replacement on [facility] by Dr. Jelena Smyth May 2022. Patient claims since the surgery the knee has been very painful ambulates with a valgus thrust and with every step it is painful. He is also status post back fusion done in 2019. He has been evaluated by pain management. He was worked up extensively in the [place] area had labs done back x-rays CT scan of the back but no one could come up with a reason why he has been having pain he is here for second opinion regarding his left knee. He was evaluated by Toribio Hammond weeks ago. Sed rate CRP and infectious work-up for P JI was negative. Supporting Subjective Information Below: Estimated body mass index is 30 kg/m? as calculated from the following: Height as of 03/18/23: 190.5 cm (6' 3 ). Weight as of 03/18/23: 108.9 kg (240 lb). Past Medical History: PAST MEDICAL HISTORY Diagnosis Date Arachnoid cyst Bipolar disorder (HCC) Depression Epilepsy (HCC) History of high blood pressure Migraines Past Surgical History: PAST SURGICAL HISTORY Procedure Laterality Date ARTHROSCOPY KNEE DIAGNOSTIC W/WO SYNOVIAL BX SPX Left PAST SURGICAL HISTORY OF lumbar fusion REMOVAL GALLBLADDER TONSILLECTOMY HX Family History: FAMILY HISTORY Problem Relation Age of Onset Diabetes Maternal Grandfather Hypertension Maternal Grandfather No history of: Bleeding, Clotting , and Anesthesia problems Social History: Social History Tobacco Use Smoking status: Former Types: Cigarettes Smokeless tobacco: Never Vaping Use Vaping Use: current everyday user Substance Use Topics Alcohol use: Not Currently Drug use: Never Current Smoker:Yes, Protocol: Medications: Current Outpatient Medications Medication Sig methocarbamol (ROBAXIN) 750 mg tablet TAKE 1 TABLET BY MOUTH 4 TIMES A DAY NEEDED diclofenac (VOLTAREN) 1 % topical gel Apply judiciously 2-3 times per day left knee - read package insert for max daily dosing instructions gabapentin (NEURONTIN) 300 mg capsule Take 1 capsule by mouth three times daily for 90 days. atomoxetine (STRATTERA) 60 mg capsule Take 60 mg by mouth once daily. FLUoxetine (PROZAC) 40 mg capsule Take 80 mg by mouth once daily. LORazepam (ATIVAN) 0.5 mg Take 0.5 mg by mouth three times daily. prazosin (MINIPRESS) 1 mg cap Take 1 mg by mouth daily at bedtime. celecoxib (CELEBREX) 200 mg capsule 200 mg once daily. hydrOXYzine HCl (ATARAX) 25 mg tablet 25 mg three times daily as needed. lamoTRIgine (LAMICTAL) 100 mg tablet 100 mg twice daily. lithium carbonate (ESKALITH) 300 mg capsule 300 mg three times daily with meals. QUEtiapine (SEROQUEL) 200 mg tablet Take 200 mg by mouth. traZODone (DESYREL) 50 mg tablet 100 mg daily at bedtime. QUEtiapine (SEROQUEL) 400 mg tablet Take 800 mg by mouth daily at bedtime. ibuprofen (MOTRIN) 800 mg tablet Take 800 mg by mouth every 8 hours as needed. pantoprazole sodium (PROTONIX ORAL) Take by mouth as needed. No current facility-administered medications for this visit. Allergies: Penicillins, Toradol [Ketorolac], and Tramadol REVIEW OF SYSTEMS: Patient reports no change in past medical AND surgical history, medications, allergies, social history, family history and review of systems REFERRING PHYSICIANS: was referred to me for consultation and further care by the following physician. This consultation note will be sent to the following physician by either mail or electronic medical record. No referring provider defined for this encounter. Physical Exam: Physical Exam: General: No acute distress, alert and oriented x3 and Awake and alert Left Skin: Incision well healed without any evidence of infection. No erythema, drainage or expressible discharge Vascular: intact Neuro: intact Musculoskeletal: Patient walks with a distinctly abnormal gait pattern favoring the right lower extremity. He has a reduced aurora and stride length. He favors the right leg throughout the all phases of gait. The patient has physiologic valgus alignment of his left knee. There is a well-healed midline incision over the anterior aspect of the left knee. He has a trace effusion in the left knee. Quadriceps is atrophic on the left. The knee is stable to varus valgus stress. There is no sign of ligamentous instability. Quadriceps is slightly weak. I personally reviewed X-Ray: Patient has a well fixed well aligned left knee arthroplasty. The patella has been resurfaced and is positioned in the trochlear groove. There is no sign of loosening and the knee appears to be well balanced (more content not included)...[facility] 04-21-2023 History of Present illness Narrative* Viviana Macedo MD - 04/21/2023 9:32 PM EDT Chief Complaint: No chief complaint on file. HPI: Patient is 37 year old male here for second opinion on left knee 37-year-old male presents for evaluation of left lower extremity pain status post left total knee replacement on [facility] by Dr. Jelena Smyth May 2022. Patient claims since the surgery the knee has been very painful ambulates with a valgus thrust and with every step it is painful.He is also status post back fusion done in 2019. He has been evaluated by pain management. He was worked up extensively in the [place] area had labs done back x-rays CT scan of the back but no one could come up with a reason why he has been having pain he is here for second opinion regarding his left knee. He was evaluated by Toribio Hammond weeks ago. Sed rate CRP and infectious work-up for P JI was negative. Supporting Subjective Information Below: Estimated body mass index is 30 kg/m as calculated from the following: Height as of 03/18/23: 190.5 cm (6' 3 ). Weight as of 03/18/23: 108.9 kg (240 lb). Past Medical History: PAST MEDICAL HISTORY Diagnosis Date Arachnoid cyst Bipolar disorder (HCC) Depression Epilepsy (HCC) History of high blood pressure Migraines Past Surgical History: PAST SURGICAL HISTORY Procedure Laterality Date ARTHROSCOPY KNEE DIAGNOSTIC W/WO SYNOVIAL BX SPX Left PAST SURGICAL HISTORY OF lumbar fusion REMOVAL GALLBLADDER TONSILLECTOMY HX Family History: FAMILY HISTORY Problem Relation Age of Onset Diabetes Maternal Grandfather Hypertension Maternal Grandfather No history of: Bleeding, Clotting , and Anesthesia problems Social History: Social History Tobacco Use Smoking status: Former Types: Cigarettes Smokeless tobacco: Never Vaping Use Vaping Use: current everyday user Substance Use Topics Alcohol use: Not Currently Drug use: Never Current Smoker:Yes, Protocol: Medications: Current Outpatient Medications Medication Sig methocarbamol (ROBAXIN) 750 mg tablet TAKE 1 TABLET BY MOUTH 4 TIMES A DAY NEEDED diclofenac (VOLTAREN) 1 % topical gel Apply judiciously 2-3 times per day left knee - read package insert for max daily dosing instructions gabapentin (NEURONTIN) 300 mg capsule Take 1 capsule by mouth three times daily for 90 days. atomoxetine (STRATTERA) 60 mg capsule Take 60 mg by mouth once daily. FLUoxetine (PROZAC) 40 mg capsule Take 80 mg by mouth once daily. LORazepam (ATIVAN) 0.5 mg Take 0.5 mg by mouth three times daily. prazosin (MINIPRESS) 1 mg cap Take 1 mg by mouth daily at bedtime. celecoxib (CELEBREX) 200 mg capsule 200 mg once daily. hydrOXYzine HCl (ATARAX) 25 mg tablet 25 mg three times daily as needed. lamoTRIgine (LAMICTAL) 100 mg tablet 100 mg twice daily. lithium carbonate (ESKALITH) 300 mg capsule 300 mg three times daily with meals. QUEtiapine (SEROQUEL) 200 mg tablet Take 200 mg by mouth. traZODone (DESYREL) 50 mg tablet 100 mg daily at bedtime. QUEtiapine (SEROQUEL) 400 mg tablet Take 800 mg by mouth daily at bedtime. ibuprofen (MOTRIN) 800 mg tablet Take 800 mg by mouth every 8 hours as needed. pantoprazole sodium (PROTONIX ORAL) Take by mouth as needed. No current facility-administered medications for this visit. Allergies: Penicillins, Toradol [Ketorolac], and Tramadol REVIEW OF SYSTEMS: Patient reports no change in past medical & surgical history, medications, allergies, social history, family history and review of systems REFERRING PHYSICIANS: was referred to me for consultation and further care by the following physician. This consultation note will be sent to the following physician by either mail or electronic medical record. No referring provider defined for this encounter. Physical Exam: Physical Exam: General: No acute distress, alert and oriented x3 and Awake and alert Left Skin: Incision well healed without any evidence of infection. No erythema, drainage or expressible discharge Vascular: intact Neuro: intact Musculoskeletal: Patient walks with a distinctly abnormal gait pattern favoring the right lower extremity. He has a reduced aurora and stride length. He favors the right leg throughout the all phases of gait. The patient has physiologic valgus alignment of his left knee. There is a well-healed midline incision over the anterior aspect of the left knee. He has a trace effusion in the left knee. Quadriceps is atrophic on the left. The knee is stable to varus valgus stress. There is no sign of ligamentous instability. Quadriceps is slightly weak. I personally reviewed X-Ray: Patient has a well fixed well aligned left knee arthroplasty. The patella has been resurfaced and is positioned in the trochlear groove. There is no sign of loosening andthe knee appears to be well balanced with medial and lateral joint spaces equal in height. The patient has a painful left total knee replacement. Etiology of the pain is difficult to determine. The patella appears to be tracking as expected and there is no gross instability in the knee. The patient was advised that he was at a very young age when the knee replacement was performed. He acknowledged that he was young for the procedure. Quadriceps rehabilitation was recommended for treatment. The patient was advised that revision surgery would not necessarily change his status as the current components are reasonably well aligned well fixed and there is no sign of gross instability. Assessment and Plan: Patient is a 37 year old male with a painful total knee. Plan for Nonoperative treatment, Weightbearing and Physical Therapy: Weight bearing as tolerated and Range of motion as tolerated Follow up: as needed with x-rays Viviana Macedo MD I agree with the Chief Complaint, ROS, and Past Histories independently gathered by the clinical telecommunications support and the remaining scribed note accurately describes my personal service to the patient. The patient is seen and examined by Dr. Macedo and the following reflects his/her service. Scribed by Lesley Melendez RN documented in this encounterKettering Health07-11-2023 NoteHNO ID: [id number] Author: Toribio Hammond PA-C Service: ? Author Type: Physician Senior Cost Estimator Type: Progress Notes Filed: 03/23/2023 8:58 AM Note Text: Spoke to patient concerning is painful left total knee discussed treatment options of try some tramadol he said he is allergic to tramadol. He is presently taking Celebrex and gabapentin. I told him to get an appointment to see one of our revision surgeons to discuss other treatment options. NATALIIA [facility]07-10-2023 Miscellaneous Notes* Telephone Encounter - Cecily Rivera - 03/22/2023 4:08 PM EDT Demographic page, TENS order and office visit notes faxed to [facility]. Cecily Rivera documented in this encounterKettering Health07-06-2023 NoteHNO ID: [id number] Author: Destiney Garcia MD Service: ? Author Type: Physician Type: Progress Notes Filed: 03/22/2023 10:58 AM Note Text: [facility] Office Visit Porter Maravilla is referred by NATALIIA Ward (spine). Unaccompanied Room: 20 Chief Complaint: both knees L>>R HISTORY OF PRESENT ILLNESS Mr. Porter Maravilla presents to [facility] for the evaluation of L>R knee pain s/p LTKR 06/09/22 pain. S/p genicular nerve blocks left by Trey Wright MD on 02/11/23 from which he had no relief. Fell in December 2022 and tore meniscus right knee. Reports has buckled since the knee replacement. S/p right knee steroid injection x 1 about a month ago. Not helping. No surgery on right side. Mild tear right meniscus. Per note from Mr. Stephany PA-C 03/05/23: RECOMMENDATION / PLAN: We discussed the potential utilization of pursuing laboratory analysis to aid our diagnosis and treatment plan and ordered CBC , erythrocyte sedimentation rate, and C-reative protein. Patient was sent to pain management. And told to get all his records from [facility] CT scan on a disc along with the report of his lumbar spine operative report of the left knee replacement. On the lumbar spine surgery. Follow up: With orthopedic joint surgeon to review the case for left painful total knee replacement. Films prior to visit: If this regimen does not provide pain relief, we will investigate further with advanced imaging. Onset: 3 years - worse since knee replacement Precipitating event: Location: left knee Radiation: no Quality: feels as though the leg is going to snap Progression: Severity: 9 on a scale of 0-10. Frequency: constant Alleviating factors: elevation, but pain eventually goes into the hip and feels stabbing and cramping; ice; more heat than ice Exacerbating factors: walking Symptoms interfere with: everything. Reports he has been on suicide watch b/c pain and limited lifestyle Patient goal(s) for visit: options, including surgery Denies bladder/bowel incontinence, progressive neurologic deficits, fever/chills, or other concerning red flag symptoms or signs. Review of Systems:The remainder of the ROS was negative. 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 HISTORY FROM THE ELECTRONIC MEDICAL RECORD Allergies ALLERGIES Allergen Reactions Penicillins Swelling Toradol [Ketorolac] Other: See Comments seizure Tramadol Mental Status Change Current Medications baclofen (LIORESAL) 10 mg tablet Take 1 tablet by mouth three times daily as needed. gabapentin (NEURONTIN) 300 mg capsule Take 1 capsule by mouth three times daily for 90 days. atomoxetine (STRATTERA) 60 mg capsule Take 60 mg by mouth once daily. FLUoxetine (PROZAC) 40 mg capsule Take 80 mg by mouth once daily. LORazepam (ATIVAN) 0.5 mg Take 0.5 mg by mouth three times daily. prazosin (MINIPRESS) 1 mg cap Take 1 mg by mouth daily at bedtime. celecoxib (CELEBREX) 200 mg capsule 200 mg once daily. hydrOXYzine HCl (ATARAX) 25 mg tablet 25 mg three times daily as needed. lamoTRIgine (LAMICTAL) 100 mg tablet 100 mg twice daily. lithium carbonate (ESKALITH) 300 mg capsule 300 mg three times daily with meals. QUEtiapine (SEROQUEL) 200 mg tablet Take 200 mg by mouth. traZODone (DESYREL) 50 mg tablet 100 mg daily at bedtime. QUEtiapine (SEROQUEL) 400 mg tablet Take 800 mg by mouth daily at bedtime. ibuprofen (MOTRIN) 800 mg tablet Take 800 mg by mouth every 8 hours as needed. pantoprazole sodium (PROTONIX ORAL) Take by mouth as needed. Past Medical History PAST MEDICAL HISTORY Diagnosis Date Arachnoid cyst Bipolar disorder (HCC) Depression Epilepsy (HCC) History of high blood pressure Migraines Past Surgical History PAST SURGICAL HISTORY Procedure Laterality Date ARTHROSCOPY KNEE DIAGNOSTIC W/WO SYNOVIAL BX SPX Left PAST SURGICAL HISTORY OF lumbar fusion REMOVAL GALLBLADDER TONSILLECTOMY HX TKR was 05/20/22 Social History Alcohol Use: Not Currently Tobacco Use: doesn't smoke Drug Use: Never Family History FAMILY HISTORY Problem Relation Age of Onset Diabetes Maternal Grandfather Hypertension Maternal Grandfather OBJECTIVE BP 146/85 Pulse 87 Temp 36.7 ?C (98.1 ?F) (Temporal Artery) Resp 16 Ht 190.5 cm (6' 3 ) Wt 108.9 kg (240 lb) (more content not included)... [facility]07-06-2023 History of Present illness Narrative* Destiney Garcia MD - 03/18/2023 3:40 PM EDT [facility] Office Visit Porter Maravilla is referred by NATALIIA Ward (spine). Unaccompanied Room: 20 Chief Complaint: both knees L>>R HISTORY OF PRESENT ILLNESS Mr. Porter Maravilla presents to [facility] for the evaluation of L>R knee pain s/p LTKR 06/09/22 pain. S/p genicular nerve blocks left by Trey Wright MD on 02/11/23 from which he had no relief. Fell in December 2022 and tore meniscus right knee. Reports has buckled since the knee replacement. S/p right knee steroid injection x 1 about a month ago. Not helpin g. No surgery on right side. Mild tear right meniscus. Per note from Mr. Stephany PA-C 03/05/23: RECOMMENDATION / PLAN: We discussed the potential utilization of pursuing laboratory analysis to aid our diagnosis and treatment plan and ordered CBC , erythrocyte sedimentation rate, and C-reative protein. Patient was sent to pain management. And told to get all his records from [facility] CT scanon a disc along with the report of his lumbar spine operative report of the left knee replacement. On the lumbar spine surgery. Follow up: With orthopedic joint surgeon to review the case for left painful total knee replacement. Films prior to visit: If this regimen does not provide pain relief, we will investigate further with advanced imaging. Onset: 3 years - worse since knee replacement Precipitating event: Location: left knee Radiation: no Quality: feels as though the leg is going to snap Progression: Severity: 9 on a scale of 0-10. Frequency: constant Alleviating factors: elevation, but pain eventually goes into the hip and feels stabbing and cramping; ice; more heat than ice Exacerbating factors: walking Symptoms interfere with: everything. Reports he has been on suicide watch b/c pain and limited lifestyle Patient goal(s) for visit: options, including surgery Denies bladder/bowel incontinence, progressive neurologic deficits, fever/chills, or other concerning red flag symptoms or signs. Review of Systems:The remainder of the ROS was negative. 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 HISTORY FROM THE ELECTRONIC MEDICAL RECORD Allergies ALLERGIES Allergen Reactions Penicillins Swelling Toradol [Ketorolac] Other: See Comments seizure Tramadol Mental Status Change Current Medications baclofen (LIORESAL) 10 mg tablet Take 1 tablet by mouth three times daily as needed. gabapentin (NEURONTIN) 300 mg capsule Take 1 capsule by mouth three times daily for 90 days. atomoxetine (STRATTERA) 60 mg capsule Take 60 mg by mouth once daily. FLUoxetine (PROZAC) 40 mg capsule Take 80 mg by mouth once daily. LORazepam (ATIVAN) 0.5 mg Take 0.5 mg by mouth three times daily. prazosin (MINIPRESS) 1 mg cap Take 1 mg by mouth daily at bedtime. celecoxib (CELEBREX) 200 mg capsule 200 mg once daily. hydrOXYzine HCl (ATARAX) 25 mg tablet 25 mg three times daily as needed. lamoTRIgine (LAMICTAL) 100 mg tablet 100 mg twice daily. lithium carbonate (ESKALITH) 300 mg capsule 300 mg three times daily with meals. QUEtiapine (SEROQUEL) 200 mg tablet Take 200 mg by mouth. traZODone (DESYREL) 50 mg tablet 100 mg daily at bedtime. QUEtiapine (SEROQUEL) 400 mg tablet Take 800 mg by mouth daily at bedtime. ibuprofen (MOTRIN) 800 mg tablet Take 800 mg by mouth every 8 hours as needed. pantoprazole sodium (PROTONIX ORAL) Take by mouth as needed. Past Medical History PAST MEDICAL HISTORY Diagnosis Date Arachnoid cyst Bipolar disorder (HCC) Depression Epilepsy (HCC) History of high blood pressure Migraines Past Surgical History PAST SURGICAL HISTORY Procedure Laterality Date ARTHROSCOPY KNEE DIAGNOSTIC W/WO SYNOVIAL BX SPX Left PAST SURGICAL HISTORY OF lumbar fusion REMOVAL GALLBLADDER TONSILLECTOMY HX TKR was 05/20/22 Social History Alcohol Use: Not Currently Tobacco Use: doesn't smoke Drug Use: Never Family History FAMILY HISTORY Problem Relation Age of Onset Diabetes Maternal Grandfather Hypertension Maternal Grandfather OBJECTIVE BP 146/85 Pulse 87 Temp 36.7 C (98.1 F) (Temporal Artery) Resp 16 Ht 190.5 cm (6' 3 ) Wt 108.9 kg (240 lb) SpO2 99% BMI 30.00 kg/m General: well appearing, alert, and in no acute distress Psych: affect and mood appropriate Skin: skin turgor normal HEENT: normocephalic, atraumatic Pulmonary: Unlabored breathing on room air. Symmetric chest expansion Neuro: AAOx3. Grossly intact Gait: Normal; genu valgus L>>R No allodynia + edema right knee globally No increased warmth No s/s infection ROM exam deferred 2/2 pain Wearing knee brace at visit; took it off for exam Patient reports much worse on left side since TKR Gait: Antalgic to left b/c right leg feels as though it's going to break Toe-walks, limps, and/or walks on the lateral surface of left foot to minimize medial left knee pain New or Pertinent Data: Imaging: CT LSPINE WO CON on 01-24-2023 CT LSPINE WO CON EXAMINATION: CT LSPINE WO CON HISTORY: Lumbar radiculopathy COMPARISON: No relevant comparison available. TECHNIQUE: Axial, Coronal, and Sagittal CT images were created without I.V. contrast material. Dose reduction techniques were achieved by using automated exposure control and/or adjustment of mA and/or kV according to patient size and/or use of iterative reconstruction technique. FINDINGS: PARASPINAL AREA: Normal with no visible mass. BONES: Normal alignment with no acute fracture or spondylolisthesis. Posterior decompression bilateral transpedicular fusion L5-S1 DISC LEVELS: 12-L1: No significant disc/facet abnormality, spinal stenosis, or foraminal stenosis. L1-L2: No significant disc/facet abnormality, spinal stenosis, or foraminal stenosis. L2-L3: No significant disc/facet abnormality, spinal stenosis, or foraminal stenosis. L3-L4: No significant disc/facet abnormality, spinal stenosis, or foraminal stenosis. L4-L5: No significant disc/facet abnormality, spinal stenosis, or foraminal stenosis. L5-S1: Interbody spacer. No disc bulge or herniation. No central or foraminal stenosis IMPRESSION: Posterior decompression and bilateral transpedicular fusion with interbody spacer L5-S1 No central or foraminal stenosis observed Electronically authenticated by: DAMARIS BARRIGA Date: 2023-01-24 16:34 Labs: No flowsheet data found. CBC Latest Ref Rng & Units 03/05/2023 WBC 3.70 - 11.00 k/uL 6.05 RBC 4.20 - 6.00 m/uL 4.83 HEMOGLOBIN 13.0 - 17.0 g/dL 13.6 HEMATOCRIT 39.0 - 51.0 % 41.1 MCV 80.0 - 100.0 fL 85.1 MCH 26.0 - 34.0 pg 28.2 MCHC 30.5 - 36.0 g/dL 33.1 RDW-CV 11.5 - 15.0 % 13.6 PLATELETS 150 - 400 k/uL 205 MPV 9.0 - 12.7 fL 9.7 BASO% % 0.8 ABS NEUT (ANC) 1.45 - 7.50 k/uL 2.17 ABS LYMPH 1.00 - 4.00 k/uL 3.05 ABS MONO <0.87 k/uL 0.54 ABS EOSIN <0.46 k/uL 0.23 ABS BASO <0.11 k/uL 0.05 NRBC /100 WBC 0.0 ASSESSMENT: Porter Maravilla is a 37 year old soft-spoken gentleman with h/o seizures and migraines who presents today with chronic knee pain, L>R, with h/o TKR almost a year ago. Pain is described as stabbing andcramping, with features both nociceptive and neuropathic. Mr. Maravilla is already treated with AEDs, and nociceptive analgesics have failed to relieve his pain. As he relates that he has not tried topical diclofenac yet, Voltaren gel script was entered and printed with instructions for Mr. Maravilla. Asan aside, he is not currently taking oral NSAIDs. To read full package insert for max daily dosing instructions. Mr Maravilla would like to discuss surgical options directly with a surgeon, so consultation was placed. Printed copy was given to him as well. Genicular nerve blocks were discussed; he hasundergone this procedure once near home wo relief, he reports, and therefore does not wish to proceed. He has not tried TENS unit, so order was placed. [facility] pamphlet was given to Mr. Maravilla. Finally, we discussed compounded topical medication including the use of ketamine. Seizure history deemsthis not reasonable, so we agreed not to proceed. Mr. Maravilla will contact Mr. Hammond to f/u on visit and let him know he wishes to discuss options with a surgeon. (M79.2) Neuralgia and neuritis (primary encounter diagnosis) (M79.605) Left leg pain (M79.18) Myofascial pain (M62.838) Spasm of muscle (M54.50) Lumbar pain (M25.561, M25.562, G89.29) Bilateral chronic knee pain (Z87.898) History of seizure (Z96.652) History of left knee replacement PLAN: - Offered genicular nerve blocks but hard to predict success given previous failure - deferred - Placed consult for orthopedic surgeon so Mr. Maravilla can meet with surgeon directly per his request - Voltaren gel 1% - script sent and provided - TENS - [facility] - order placed and pamphlet provided FTFT: [phone] Shared decision making utilized to continue current treatment plan and patient's questions were answered. The above plan and management options were discussed with patient. The patient is in agreement withthe above and verbalized understanding. Destiney Garcia MD 1. This office note may have been dictated. As such, or if not, it may contain minor typographic errors that escaped review 2. The nursing staff and advanced practice providers are a major part of YOUR TREATMENT TEAM and will be handling your phone calls and electronic inquiries, if any. Unless explicitly told otherwise at the time of your office visit, your study results and ensuing treatment plans will be discussed during your follow- up appointment. 3. If you do not have a follow-up appointment and wish to discuss any issues directly with me, please feel free to obtain an appointment for follow-up visit in the office. Time allotted for procedureappointments will not allow for these follow-up discussions and the preoperative visit will not allow sufficient time for thorough discussion. 4. It is our practice not to fill disability, FCE, or any other insurance- related forms/documention. The office notes, study results, and other pertinent documentation generated as part of your evaluation will be available to you and to your Primary Care Physician (PCP). Use of this material to complete such forms will be at the discretion of your PCP/referring physician. 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 yes documented in this encounterK[facility]-2023 NoteHNO ID: [id number] Author: Toribio Hammond PA-C Service: ? Author Type: Physician Senior Cost Estimator Type: Progress Notes Filed: 03/15/2023 2:41 PM Note Text: Discussed results of the lab results ordered due to location painful knee left total knee placement. CBC ESR and CRP were normal. On x-ray there is lateral tracking of the patella surgery brace was ordered and he will pick that up from x-rays in clinic facility casted. [facility] History of Present illness Narrative* Toribio Hammond PA-C - 03/15/2023 2:39 PM EDT Discussed results of the lab results ordered due to location painful knee left total knee placement. CBC ESR and CRP were normal. On x-ray there is lateral tracking of the patella surgery brace was ordered and he will pick that up from x-rays in clinic facility casted. Toribio Hammond PA-C documented in this encounterK[facility]07-03-2023 Miscellaneous Notes* Telephone Encounter - Toribio Hammond PA-C - 03/15/2023 2:31 PM EDT This check on the patient no answer on his phone Labs are normal. Toribio Hammond PA-C documented in this encounterK[facility]06-23-2023 NoteHNO ID: [id number] Author: Toribio Hammond PA-C Service: ? Author Type: Physician Senior Cost Estimator Type: Progress Notes Filed: 03/05/2023 12:29 PM Note Text: SERVICE DATE: March 05, 2023 PCP: Андрей Goode DO Consult requested by Dr Medhat Goode DO for an opinion regarding chief complaint as stated below. My final impression and recommendations will be communicated back to the requesting physician by way of the shared medical record or letter via US mail. Subjective Patient ID: Porter is a 37 year old male. Chief Complaint: No chief complaint on file. PAIN EVALUATION 03/05/2023 1003 Pain Level: 10 Pain Location: Knee-Left radiating up in to hip and pain in the right knee also Description: Radiating feels like knee is going to snap Duration Amount of Time: 3 Duration Units: Years knee replacement last may Intervention/Comfort measure: Heat;Medication elevating and stopped with meds because it was excessive 37-year-old male presents for evaluation of left lower extremity pain status post left total knee replacement on [facility] by Dr. Jelena Smyth May 2022. Patient claims since the surgery the knee has been very painful ambulates with a valgus thrust and with every step it is painful. He is also status post back fusion done in 2019 and has not followed with recovered from that also. He was worked up extensively in the [place] area had labs done back x-rays CT scan of the back but no one could come up with a reason why he has been having pain he is here for second opinion. Examination was very difficult because he was spastic skin is hypersensitive to touch and around the knee back exam was also just very hard to elicit any kind of good exam. I told him we will get him into see pain management for the chronic pain but in the meanwhile we will repeat the labs CBC ESR CRP. He was told to get his reports of the surgery and other treatments from the hospital CAT scan of the lumbar spine on this and with the report and then we will get him into see one of our joint surgeons if there is any discrepancy in the knee case will be reviewed with our joint surgeon. With respect to his back status post surgery lumbar spine he will need to be seen by our spine center. In the meanwhile he was sent to pain management as stated above. TREATMENTS PRIOR TO INITIAL CONSULT: Left total knee replacement surgery; Date: 2021 at [facility]. Review of Systems Constitutional: Negative. HENT: Negative. Respiratory: Negative. Cardiovascular: Negative. Gastrointestinal: Negative. Endocrine: Negative. Skin: Negative. Neurological: Negative. Hematological: Negative. Musculoskeletal: Positive for joint swelling. There is no problem list on file for this patient. PAST MEDICAL HISTORY Diagnosis Date Arachnoid cyst Bipolar disorder (HCC) Depression Epilepsy ([facility]) History of high blood pressure Migraines PAST SURGICAL HISTORY Procedure Laterality Date ARTHROSCOPY KNEE DIAGNOSTIC W/WO SYNOVIAL BX SPX Left PAST SURGICAL HISTORY OF lumbar fusion REMOVAL GALLBLADDER TONSILLECTOMY HX FAMILY HISTORY Problem Relation Age of Onset Diabetes Maternal Grandfather Hypertension Maternal Grandfather Social History Tobacco Use Smoking status: Former Types: Cigarettes Smokeless tobacco: Never Vaping Use Vaping Use: current everyday user Substance Use Topics Alcohol use: Not Currently Drug use: Never ALLERGIES Allergen Reactions Penicillins Swelling Toradol [Ketorolac] Other: See Comments seizure Tramadol Mental Status Change MEDICATIONS: baclofen (LIORESAL) 10 mg tablet Take 1 tablet by mouth three times daily as needed. gabapentin (NEURONTIN) 300 mg capsule Take 1 capsule by mouth three times daily for 90 days. atomoxetine (STRATTERA) 60 mg capsule Take 60 mg by mouth once daily. FLUoxetine (PROZAC) 40 mg capsule Take 80 mg by mouth once daily. LORazepam (ATIVAN) 0.5 mg Take 0.5 mg by mouth three times daily. prazosin (MINIPRESS) 1 mg cap Take 1 mg by mouth daily at bedtime. celecoxib (CELEBREX) 200 mg capsule 200 mg once daily. hydrOXYzine HCl (ATARAX) 25 mg tablet 25 mg three times daily as needed. lamoTRIgine (LAMICTAL) 100 mg tablet 100 mg twice daily. lithium carbonate (ESKALITH) 300 mg capsule 300 mg three times daily with meals. QUEtiapine (SEROQUEL) 200 mg tablet Take 200 mg by mouth. traZODone (DESYREL) 50 mg tablet 100 mg daily at bedtime. QUEtiapine (SEROQUEL) 400 mg tablet Take 800 mg by mouth daily at bedtime. ibuprofen (MOTRIN) 800 mg tablet Take 800 mg by mouth every 8 hours as needed. pantoprazole sodium (PROTONIX ORAL) Take by mouth as needed. Allergies, medications, past surgical history, family history and past medical history were reviewed per this encounter. Objective Left Knee Exam Tenderness The patient is experiencing tenderness in the medial joint line, lateral join (more content not included)...[facility]06-23[facility] Instructions* Patient Instructions* Toribio Hammond PA-C - 03/05/2023 10:57 AM EDT Patient was told to get the left knee operative note from [facility] also told to get the CAT scan that was done of his lumbar spine and other lab works and examination done from [place] and bring with him to the next appointment. This case will be discussed with one of her previous joint revision surgeon. Patient was sent to pain management for chronic lower back pain and left knee pain status post lefttotal knee replacement May 15, 2022 and back surgery lower lumbar fusion 2019. documented in this encounterK[facility]06-23-2023 History of Present illness Narrative* Toribio Hammond PA-C - 03/05/2023 10:27 AM EDT Images from the original note were not included. SERVICE DATE: March 05, 2023 PCP: Андрей Goode DO Consult requested by Dr .Max L Pavlock, DO for an opinion regarding chief complaint as stated below. My final impression and recommendations will be communicated back to the requesting physician by way of the shared medical record or letter via US mail. Subjective Patient ID: Porter is a 37 year old male. Chief Complaint: No chief complaint on file. PAIN EVALUATION 03/05/2023 1003 Pain Level: 10 Pain Location: Knee-Left radiating up in to hip and pain in the right knee also Description: Radiating feels like knee is going to snap Duration Amount of Time: 3 Duration Units: Years knee replacement last may Intervention/Comfort measure: Heat;Medication elevating and stopped with meds because it was excessive 37-year-old male presents for evaluation of left lower extremity pain status post left total knee replacement on [facility] by Dr. Jelena Smyth May 2022. Patient claims since the surgery the knee has been very painful ambulates with a valgus thrust and with every step it is painful.He is also status post back fusion done in 2019 and has not followed with recovered from that also.He was worked up extensively in the [place] area had labs done back x-rays CT scan of the back butno one could come up with a reason why he has been having pain he is here for second opinion. Examination was very difficult because he was spastic skin is hypersensitive to touch and around the kneeback exam was also just very hard to elicit any kind of good exam. I told him we will get him into see pain management for the chronic pain but in the meanwhile we will repeat the labs CBC ESR CRP. He was told to get his reports of the surgery and other treatments from the hospital CAT scan of the lumbar spine on this and with the report and then we will get him into see one of our joint surgeonsif there is any discrepancy in the knee case will be reviewed with our joint surgeon. With respect to his back status post surgery lumbar spine he will need to be seen by our spine center. In the meanwhile he was sent to pain management as stated above. TREATMENTS PRIOR TO INITIAL CONSULT: Left total knee replacement surgery; Date: 2021 at [facility]. Review of Systems Constitutional: Negative. HENT: Negative. Respiratory: Negative. Cardiovascular: Negative. Gastrointestinal: Negative. Endocrine: Negative. Skin: Negative. Neurological: Negative. Hematological: Negative. Musculoskeletal: Positive for joint swelling. There is no problem list on file for this patient. PAST MEDICAL HISTORY Diagnosis Date Arachnoid cyst Bipolar disorder (HCC) Depression Epilepsy (HCC) History of high blood pressure Migraines PAST SURGICAL HISTORY Procedure Laterality Date ARTHROSCOPY KNEE DIAGNOSTIC W/WO SYNOVIAL BX SPX Left PAST SURGICAL HISTORY OF lumbar fusion REMOVAL GALLBLADDER TONSILLECTOMY HX FAMILY HISTORY Problem Relation Age of Onset Diabetes Maternal Grandfather Hypertension Maternal Grandfather Social History Tobacco Use Smoking status: Former Types: Cigarettes Smokeless tobacco: Never Vaping Use Vaping Use: current everyday user Substance Use Topics Alcohol use: Not Currently Drug use: Never ALLERGIES Allergen Reactions Penicillins Swelling Toradol [Ketorolac] Other: See Comments seizure Tramadol Mental Status Change MEDICATIONS: baclofen (LIORESAL) 10 mg tablet Take 1 tablet by mouth three times daily as needed. gabapentin (NEURONTIN) 300 mg capsule Take 1 capsule by mouth three times daily for 90 days. atomoxetine (STRATTERA) 60 mg capsule Take 60 mg by mouth once daily. FLUoxetine (PROZAC) 40 mg capsule Take 80 mg by mouth once daily. LORazepam (ATIVAN) 0.5 mg Take 0.5 mg by mouth three times daily. prazosin (MINIPRESS) 1 mg cap Take 1 mg by mouth daily at bedtime. celecoxib (CELEBREX) 200 mg capsule 200 mg once daily. hydrOXYzine HCl (ATARAX) 25 mg tablet 25 mg three times daily as needed. lamoTRIgine (LAMICTAL) 100 mg tablet 100 mg twice daily. lithium carbonate (ESKALITH) 300 mg capsule 300 mg three times daily with meals. QUEtiapine (SEROQUEL) 200 mg tablet Take 200 mg by mouth. traZODone (DESYREL) 50 mg tablet 100 mg daily at bedtime. QUEtiapine (SEROQUEL) 400 mg tablet Take 800 mg by mouth daily at bedtime. ibuprofen (MOTRIN) 800 mg tablet Take 800 mg by mouth every 8 hours as needed. pantoprazole sodium (PROTONIX ORAL) Take by mouth as needed. Allergies, medications, past surgical history, family history and past medical history were reviewed per this encounter. Objective Left Knee Exam Tenderness The patient is experiencing tenderness in the medial joint line, lateral joint line, lateral retinaculum, LCL, MCL, patellar tendon, patella, medial retinaculum, medial hamstring and pes anserinus. Range of Motion Extension: 0 Flexion: 110 Tests Francisco: Anterior - trace Posterior - trace Drawer: Anterior - trace Posterior - trace Pivot shift: trace Patellar apprehension: trace Other Erythema: absent Scars: present Sensation: decreased Pulse: present Swelling: moderate Effusion: effusion present Comments: Very difficult exam due to hypersensitivity about the knee and guarding. Lower back exam is also difficult due to him being in so much pain. There is some decreased sensation about L3 IV nerve distribution left lower extremity. Right knee x-rays did show moderate degree of arthritic changes. Left total knee complements from the placement seems to be well aligned some subtle rotational internal alignment of the femoral component . Patella tilt and patella tracking laterally. Assessment/Plan ASSESSMENT Diagnosis (T84.84XA, Z96.652) Pain due to total left knee replacement, initial encounter ([facility]) (primary encounter diagnosis) Plan: CBC + DIFF, SED RATE WESTERGREN, C-REACTIVE PROTEIN (CRP) (M25.462) Effusion of left knee Plan: CONSULT PANEL TO ORTHOPAEDICS, CBC + DIFF, SED RATE WESTERGREN, C-REACTIVE PROTEIN (CRP), CONSULT TO PAIN MGT (S83.241A) Tear of medial meniscus of right knee, current, unspecified tear type, initial encounter Plan: CONSULT PANEL TO ORTHOPAEDICS, CBC + DIFF, SED RATE WESTERGREN, C-REACTIVE PROTEIN (CRP), CONSULT TO PAIN MGT Office Visit on 03/05/23 CBC + DIFF SED RATE WESTERGREN C-REACTIVE PROTEIN (CRP) CONSULT PANEL TO ORTHOPAEDICS CONSULT TO PAIN MGT PLAN CLINICAL IMPRESSION / ASSESSMENT: (T84.84XA, Z96.652) Pain due to total left knee replacement, initial encounter ([facility]) (primary encounter diagnosis) (M25.462) Effusion of left knee (S83.241A) Tear of medial meniscus of right knee, current, unspecified tear type, initial encounter RECOMMENDATION / PLAN: We discussed the potential utilization of pursuing laboratory analysis to aid our diagnosis and treatment plan and ordered CBC , erythrocyte sedimentation rate, and C-reative protein. Patient was sent to pain management. And told to get all his records from [facility] CT scanon a disc along with the report of his lumbar spine operative report of the left knee replacement. On the lumbar spine surgery Follow up: With orthopedic joint surgeon to review the case for left painful total knee replacement. Films prior to visit: If this regimen does not provide pain relief, we will investigate further with advanced imaging. SIGNATURE: Toribio Hammond PA-C PATIENT NAME: Porter Maravilla DATE: March 05, 2023 TIME: 10:27 AM documented in this encounterK[facility]06-12-2023 NoteHNO ID: [id number] Author: Shea Plasencia APRN.YVON Service: ? Author Type: Nurse Practitioner Type: Progress Notes Filed: 02/22/2023 2:04 PM Note Text: SPINE SURGERY ESTABLISHED VIRTUAL VISIT This is a virtual visit using Clear[employer] video visit. It required patient-provider interaction for the medical decision making as documented below. I have communicated my name and active licensure. The patient's identity and physical location were verified at the time of this visit. Either the patient or their legal outbound telemarketing representative has been informed of the risks and benefits of -- and alternatives to -- treatment through a remote evaluation and consents to proceed with the evaluation remotely. DATE OF SERVICE: 02/22/2023 DATE OF LAST VISIT: 01/13/2023 SUBJECTIVE: HPI:Porter Maravilla is a 37 year old male presenting alone via virtual visit Stated that 2 weeks ago he started having worsening pain in his left leg. States he now has pain in his left hip and left which radiates into his jacques and left big toe. Still having muscle spasm which increase with movement, and bending of left knee al,so cause the pain to spark. Patient states it feels like his left leg is going to snap or break in half when he walks. He is wearing his knee brace at night, he still finds that his left knee does inward when he walks. He states her is dragging left foot because it hurts to lift it. Prescribed Robaxin last visit which he did not helpful; went to a local pain management doctor who performed some sort of diagnostic injection patient unsure of what kind in order to see if he qualifies for RFA it did not work however. Also taking Gabapentin Discussed switching to baclofen patient agreeable, due to new symptoms of more pain suggested trying a medrol dose pack. Patient agreeable to this as well. States he will try anything Going to see his local ortho doctor today who performed his prior knee surgeries. He is also scheduled to get a second opinion with ortho here at [facility] at end of February. Also has appointment with his psychiatrist next week due to worsening feelings of hopelessness due to chronic pain. Also will discuss adding Celebrex to his pain management regimen wants to make sure does not interact with any of his psych meds. MEDICATIONS: gabapentin (NEURONTIN) 300 mg capsule Take 1 capsule by mouth three times daily for 90 days. atomoxetine (STRATTERA) 60 mg capsule Take 60 mg by mouth once daily. FLUoxetine (PROZAC) 40 mg capsule Take 80 mg by mouth once daily. LORazepam (ATIVAN) 0.5 mg Take 0.5 mg by mouth three times daily. prazosin (MINIPRESS) 1 mg cap Take 1 mg by mouth daily at bedtime. celecoxib (CELEBREX) 200 mg capsule 200 mg once daily. hydrOXYzine HCl (ATARAX) 25 mg tablet 25 mg three times daily as needed. lamoTRIgine (LAMICTAL) 100 mg tablet 100 mg twice daily. lithium carbonate (ESKALITH) 300 mg capsule 300 mg three times daily with meals. QUEtiapine (SEROQUEL) 200 mg tablet Take 200 mg by mouth. traZODone (DESYREL) 50 mg tablet 100 mg daily at bedtime. QUEtiapine (SEROQUEL) 400 mg tablet Take 800 mg by mouth daily at bedtime. ibuprofen (MOTRIN) 800 mg tablet Take 800 mg by mouth every 8 hours as needed. pantoprazole sodium (PROTONIX ORAL) Take by mouth as needed. Patient Entered Questionnaires Spine Questions 02/22/2023 Pain Location: Other Pain Duration: 6 months - 1 year Pain over last 6 months: Less than half the days in the past 6 months Symptoms from neck/cervical spine: No Employment Status: Other Involved in law suit/legal claim: No PROMIS Score Percentiles Physical Health 02/22/2023 Physical Function Percentile 0 Sleep Percentile 0 Fatigue Percentile 0 Pain Interference Percentile 0 PROMIS SOCIAL ROLE SCORE 02/22/2023 Social Role Satisfaction Percentile 69 PROMIS Global Health Scale 02/22/2023 Physical Health Percentile 0 Mental Health Percentile 0 Percentiles provide an indication of how the patient's score ranks in relation to the general population. Higher percentile rankings indicate better function/quality of life. 50th percentile is the average of the general population and indicates half of respondents had a worse score. Depression Screening: PHQ-9 02/22/2023 Score 27 PHQ-9 Self-harm Question 02/22/2023 Thoughts that you would be better off , or of hurting yourself in some way 3 PHQ-9 Self-Harm (Item 9) response options: 0 Not at all 1 Several days 2 More than half the days 3 Nearly every day PHQ-9 Levels: 0-4 No to mild depression 5-9 Mild depression 10-14 Moderate depression 15-19 Moderately severe depression 20-27 Severe depression OBJECTIVE: PHYSICAL EXAM: limited due to VV GENERAL APPEARANCE: Well nourished, well developed, and no apparent distress. NEURO PSYCH: Patient oriented to person, place, and time. Mood pleasant. Benign affect. ASSESSMENT/PLAN (M79.605) Left leg pain (primary encounter (more content not included)... [facility]06-06-2023 Miscellaneous Notes* Telephone Encounter - Mojgan Virgen RN - 02/16/2023 3:12 PM EDT PEPE: 02/05/2023 NOV: not yet scheduled. Plan as of PEPE: Referral to ortho placed to review knee etiology, pending spine imaging to see bony fusion status, and r/o spinal cord etiology r/t muscle spacticity and giat instability; Ortho visit on 03/05/23 for consult 1. Medications: Continue current medications and Robaxin (methocarbamol) 750 mg by mouth every 8 hours as needed for spasm Imaging: Thoracic MRI Without Contrast Preoperative planning, Not yet scheduled 2. Follow up: after completing CT lumbar and MRI thoracic patient to schedule follow up to review imaging and next steps in plan of care Not yet scheduled Update shared with . WASHINGTON Leach, RN Hydrogenation Still Operator February 16, 2023 3:30 PM [facility] Evaluation note* Encounter Date Diagnosis Assessment Notes Treatment Notes Treatment Clinical Notes Feb, Left knee pain (ICD-10 - M25.562) 37 year old male here for follow up status post left superior medial, superior lateral and inferior medial genicular nerve blocks under fluoroscopic guidance. Patient reports 50% pain relief for 2-3 days following procedure. He continues to complain of left knee pain today, as expected. Different treatment options were discussed in detail with the patient, and I do not recommend proceeding with the confirmatory nerve block as patient did not receive significant short term relief. He can seek a second surgical opinion. Feb, Right knee pain (ICD-10 - M25.561) Continue to follow up with Dr Gregorio for pain Feb, Chronic pain (ICD-10 - G89.29) I independently reviewed recent imaging of the lumbar spine which is unremarkable. Continue with current treatment plan [employer] Other 05-26-2023 NoteHNO ID: [id number] Author: Kelle Gordon, DO Service: ? Author Type: Physician Type: Progress Notes Filed: 02/05/2023 5:49 PM Note Text: Spine Care Path Low Back Pain - Chronic (> 12 weeks) Initial Exam SUBJECTIVE HISTORY OF PRESENT ILLNESS: Porter Maravilla is a 37 year old male who presents with a chief complaint of low back and leg pain and is self-referred. Other Issues Addressed at the Visit Today: None. Injured low back as a kid. On/off severe pain progressed. 2020 had L5-S1 fusion helped. 02/2020 slipped in mud and developed left knee pain. Several surgeries. Then tka 06/09/22, still pain and feels like something moving and increased to severe pain about 4-5 weeks post op. Knee ortho concerned if from the low back. 3 spine providers do not find anything in spine. Genicular nerve blocks w/ Dr. Leiva. Yesterday, less than 50% relief 1st 3 hrs. Does have back and hip pain and both sides buttock, rare to groin. Left knee hurts standing still, sitting. Better w/ changing position. On front and lateral hamstring. Better with brace. On questioning the points of pain are maximal at the medial anterior knee and along the left lateral hamstring. He has tenderness just to light touch. He has a topical medication that is difficult for him to put on. He is not sure it helps. He also has right knee pain and a diagnosis of meniscus tear. He and his partner are both very frustrated with the lack of answers. They do plan to see orthopedics here. He expresses that if his knee requires a revision surgery he would like to just go forward with that. PAIN EVALUATION 02/05/2023 1500 Pain Level: 9 Pain Location: Back both knees Description: Aching;Sharp Duration Amount of Time: 2 Duration Units: Years Frequency: Continuous Intervention/Comfort measure: Medication;Heat;Exercise;Pillow support;Therapeutic techniques-CPRP From spine surgery note 5.3.23 SUBJECTIVE: HPI:Porter Maravilla is a 37 year old male presenting with partner follow up after completing MRI knee which showed large effusion in left knee and right medial menical tear and EMG which showed no definite evidence of a generalized large fiber sensorimotor polyneuropathy or a left lumbosacral (L3-S1) intraspinal canal lesion (ie: motor radiculopathy). Patient left leg worse than right contineues to have intermittent muscle spasms throughtouth the day. Has an appointment end of January with spine med with Dr Gordon to establish a regimen for better pain control. Willl prescirbe oraliaaxin QID PRN for his muscle spasms. Discussed referral to ortho here to assess left knee which his has multiple arthroscopy on. Will order XR bilateral knee for refer Patient has yet to get CT lumbar to evualate the status of his hardware and bony fusion. Instructed patient to sent copy once completed to office and notify us when he does this and then schedule a follow up to review. Still having muscle spasm and spastic gait with left knee given out, patient states he has to wear shoes otherwise he will fall; will order MRI thoracic spine to rule out spinal cord etiology, patinet agreeable to this plan. 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 Referral to ortho placed to review knee etiology, pending spine imaging to see bony fusion status, and r/o spinal cord etiology r/t muscle spacticity and giat instability; 1. Medications: Continue current medications and Robaxin (methocarbamol) 750 mg by mouth every 8 hours as needed for spasm Imaging: Thoracic MRI Without Contrast Preoperative planning, Postop recurring or worsening symptoms, Symptoms of neuro deficit or red flag symptoms listed in HPI, and Failure of conservative treatments as listed in HPI 2. Follow up: after completing CT lumbar and MRI thoracic patient to schedule follow up to review imaging and next steps in plan of care Imaging Ordered: For possible Thoracic Myelopathy due to presence of red flags detailed in HPI, myelopathic exam, and Failure of conservative treatments listed in HPI/Conservative Treatment Section (NSAIDs, PT, HEP and/or Icer Hand within last 3-6 months) . For possible Lumbar Radiculopathy due to presence of red flags detailed in HPI, interventional planning, surgical planning, progressive leg weakness, and leg pain unresponsive to medical management. Prior Therapy: Multiple rounds of physical therapy for his k (more content not included)... [facility]05-03-2023 NoteHNO ID: [id number] Author: Shea Plasencia APRN.SUPERVISOR [employer] Service: ? Author Type: Nurse Practitioner Type: Progress Notes Filed: 01/14/2023 2:09 PM Note Text: SPINE SURGERY ESTABLISHED VISIT This is an in-person visit. DATE OF SERVICE: 01/13/2023 DATE OF LAST VISIT: 01/05/2023 SUBJECTIVE: HPI:Porter Maravilla is a 37 year old male presenting with partner follow up after completing MRI knee which showed large effusion in left knee and right medial menical tear and EMG which showed no definite evidence of a generalized large fiber sensorimotor polyneuropathy or a left lumbosacral (L3-S1) intraspinal canal lesion (ie: motor radiculopathy). Patient left leg worse than right contineues to have intermittent muscle spasms throughtouth the day. Has an appointment end of January with spine med with Dr Gordon to establish a regimen for better pain control. Willl prescirbe robaxin QID PRN for his muscle spasms. Discussed referral to ortho here to assess left knee which his has multiple arthroscopy on. Will order XR bilateral knee for refer Patient has yet to get CT lumbar to evualate the status of his hardware and bony fusion. Instructed patient to sent copy once completed to office and notify us when he does this and then schedule a follow up to review. Still having muscle spasm and spastic gait with left knee given out, patient states he has to wear shoes otherwise he will fall; will order MRI thoracic spine to rule out spinal cord etiology, idania agreeable to this plan. Discussed how debilitating the pain is on his mental health, patient states he has a good support system at home and does seek counseling and on medications MEDICATIONS: atomoxetine (STRATTERA) 60 mg capsule Take 60 mg by mouth once daily. FLUoxetine (PROZAC) 40 mg capsule Take 80 mg by mouth once daily. LORazepam (ATIVAN) 0.5 mg Take 0.5 mg by mouth three times daily. prazosin (MINIPRESS) 1 mg cap Take 1 mg by mouth daily at bedtime. hydrOXYzine HCl (ATARAX) 25 mg tablet 25 mg three times daily as needed. lamoTRIgine (LAMICTAL) 100 mg tablet 100 mg twice daily. traZODone (DESYREL) 50 mg tablet 100 mg daily at bedtime. QUEtiapine (SEROQUEL) 400 mg tablet Take 800 mg by mouth daily at bedtime. ibuprofen (MOTRIN) 800 mg tablet Take 800 mg by mouth every 8 hours as needed. methocarbamol (ROBAXIN-750) 750 mg tablet Take 1 tablet by mouth four times daily as needed. celecoxib (CELEBREX) 200 mg capsule 200 mg once daily. (Patient not taking: Reported on 01/13/2023) lithium carbonate (ESKALITH) 300 mg capsule 300 mg three times daily with meals. (Patient not taking: Reported on 01/13/2023) QUEtiapine (SEROQUEL) 200 mg tablet Take 200 mg by mouth. (Patient not taking: Reported on 01/13/2023) pantoprazole sodium (PROTONIX ORAL) Take by mouth as needed. (Patient not taking: Reported on 01/13/2023) Patient Entered Questionnaires PROMIS Score Percentiles Percentiles provide an indication of how the patient's score ranks in relation to the general population. Higher percentile rankings indicate better function/quality of life. 50th percentile is the average of the general population and indicates half of respondents had a worse score. Depression Screening: PHQ-9 Self-Harm (Item 9) response options: 0 Not at all 1 Several days 2 More than half the days 3 Nearly every day PHQ-9 Levels: 0-4 No to mild depression 5-9 Mild depression 10-14 Moderate depression 15-19 Moderately severe depression 20-27 Severe depression OBJECTIVE: PHYSICAL EXAM: BP 125/84 Pulse 84 Resp 16 Ht 191.8 cm (6' 3.5 ) Wt 112.1 kg (247 lb 3.2 oz) SpO2 95% BMI 30.49 kg/m? GENERAL APPEARANCE: Well nourished, well developed, and no apparent distress. NEURO PSYCH: Patient oriented to person, place, and time. Mood pleasant. Benign affect. MUSCULOSKELETAL VISUAL INSPECTION CERVICAL: WNL THORACIC: WNL LUMBAR: WNL PALPATION: SPINOUS PROCESS: No pain. PARASPINALS: No pain. MUSCLE BULK: Normal and symmetrical in the upper AND lower extremities. MUSCLE TONE: Normal. MOTOR: 5/5 in all muscle groups. Weakness noted on left lower extremity hip flexion SENSORY: Normal sensory exam GAIT: Abnormal. Steppage spastic gait, patient need active muscle spasm when walking, unable to tandem gait REFLEXES: +2 to bilateral U/L extremities. PROPRIOCEPTION: Normal. LONG TRACT SIGNS: No clonus. No Hoffmans. STRAIGHT LEG TEST: Ipsilateral: Positive. ASSESSMENT/PLAN (M47.14) Spondylosis with myelopathy, thoracic region (primary encounter diagnosis) (R26.81) Gait instability (M54.16) Radiculopathy of lumbar region (M25.462) Effusion of left knee (S83.241A) Tear of medial meniscus of right knee, current, unspecified tear type, initial encounter Potrer Maravilla will continue with medical management of his/her condition and has a condition that requires further workup. Referral to ortho placed to review knee etiology, pending spine (more content not included)...[facility]05-03-2023 History of Present illness Narrative* Shea Plasencia APRN.SUPERVISOR [employer] - 01/13/2023 9:10 PM EDT SPINE SURGERY ESTABLISHED VISIT This is an in-person visit. DATE OF SERVICE: 01/13/2023 DATE OF LAST VISIT: 01/05/2023 SUBJECTIVE: HPI:Porter Maravilla is a 37 year old male presenting with partner follow up after completing MRI knee which showed large effusion in left knee and right medial menical tear and EMG which showed no definite evidence of a generalized large fiber sensorimotor polyneuropathy or a left lumbosacral (L3-S1) intraspinal canal lesion (ie: motor radiculopathy). Patient left leg worse than right contineues to have intermittent muscle spasms throughtouth the day. Has an appointment end of January with spine med with Dr Gordon to establish a regimen for better paincontrol. Willl prescirbe robaxin QID PRN for his muscle spasms. Discussed referral to ortho here to assess left knee which his has multiple arthroscopy on. Will order XR bilateral knee for refer Patient has yet to get CT lumbar to evualate the status of his hardware and bony fusion. Instructedpatient to sent copy once completed to office and notify us when he does this and then schedule a follow up to review. Still having muscle spasm and spastic gait with left knee given out, patient states he has to wear shoes otherwise he will fall; will order MRI thoracic spine to rule out spinal cord etiology, patinet agreeable to this plan. Discussed how debilitating the pain is on his mental health, patient states he has a good support system at home and does seek counseling and on medications MEDICATIONS: atomoxetine (STRATTERA) 60 mg capsule Take 60 mg by mouth once daily. FLUoxetine (PROZAC) 40 mg capsule Take 80 mg by mouth once daily. LORazepam (ATIVAN) 0.5 mg Take 0.5 mg by mouth three times daily. prazosin (MINIPRESS) 1 mg cap Take 1 mg by mouth daily at bedtime. hydrOXYzine HCl (ATARAX) 25 mg tablet 25 mg three times daily as needed. lamoTRIgine (LAMICTAL) 100 mg tablet 100 mg twice daily. traZODone (DESYREL) 50 mg tablet 100 mg daily at bedtime. QUEtiapine (SEROQUEL) 400 mg tablet Take 800 mg by mouth daily at bedtime. ibuprofen (MOTRIN) 800 mg tablet Take 800 mg by mouth every 8 hours as needed. methocarbamol (ROBAXIN-750) 750 mg tablet Take 1 tablet by mouth four times daily as needed. celecoxib (CELEBREX) 200 mg capsule 200 mg once daily. (Patient not taking: Reported on 01/13/2023) lithium carbonate (ESKALITH) 300 mg capsule 300 mg three times daily with meals. (Patient not taking: Reported on 01/13/2023) QUEtiapine (SEROQUEL) 200 mg tablet Take 200 mg by mouth. (Patient not taking: Reported on 01/13/2023) pantoprazole sodium (PROTONIX ORAL) Take by mouth as needed. (Patient not taking: Reported on 01/13/2023) Patient Entered Questionnaires PROMIS Score Percentiles Percentiles provide an indication of how the patient's score ranks in relation to the general population. Higher percentile rankings indicate better function/quality of life. 50th percentile is the average of the general population and indicates half of respondents had a worse score. Depression Screening: PHQ-9 Self-Harm (Item 9) response options: 0 Not at all 1 Several days 2 More than half the days 3 Nearly every day PHQ-9 Levels: 0-4 No to mild depression 5-9 Mild depression 10-14 Moderate depression 15-19 Moderately severe depression 20-27 Severe depression OBJECTIVE: PHYSICAL EXAM: BP 125/84 Pulse 84 Resp 16 Ht 191.8 cm (6' 3.5 ) Wt 112.1 kg (247 lb 3.2 oz) SpO2 95% BMI 30.49 kg/m GENERAL APPEARANCE: Well nourished, well developed, and no apparent distress. NEURO PSYCH: Patient oriented to person, place, and time. Mood pleasant. Benign affect. MUSCULOSKELETAL VISUAL INSPECTION CERVICAL: WNL THORACIC: WNL LUMBAR: WNL PALPATION: SPINOUS PROCESS: No pain. PARASPINALS: No pain. MUSCLE BULK: Normal and symmetrical in the upper & lower extremities. MUSCLE TONE: Normal. MOTOR: 5/5 in all muscle groups. Weakness noted on left lower extremity hip flexion SENSORY: Normal sensory exam GAIT: Abnormal. Steppage spastic gait, patient need active muscle spasm when walking, unable to tandem gait REFLEXES: +2 to bilateral U/L extremities. PROPRIOCEPTION: Normal. LONG TRACT SIGNS: No clonus. No Hoffmans. STRAIGHT LEG TEST: Ipsilateral: Positive. ASSESSMENT/PLAN (M47.14) Spondylosis with myelopathy, thoracic region (primary encounter diagnosis) (R26.81) Gait instability (M54.16) Radiculopathy of lumbar region (M25.462) Effusion of left knee (S83.241A) Tear of medial meniscus of right knee, current, unspecified tear type, initial encounter Porter Maravilla will continue with medical management of his/her condition and has a condition that requires further workup. Referral to ortho placed to review knee etiology, pending spine imaging to seebony fusion status, and r/o spinal cord etiology r/t muscle spacticity and giat instability; 1. Medications: Continue current medications and Robaxin (methocarbamol) 750 mg by mouth every 8 hours as needed for spasm Imaging: Thoracic MRI Without Contrast Preoperative planning, Postop recurring or worsening symptoms, Symptoms of neuro deficit or red flag symptoms listed in HPI, and Failure of conservative treatments as listed in HPI 2. Follow up: after completing CT lumbar and MRI thoracic patient to schedule follow up to review imaging and next steps in plan of care Imaging Ordered: For possible Thoracic Myelopathy due to presence of red flags detailed in HPI, myelopathic exam, and Failure of conservative treatments listed in HPI/Conservative Treatment Section (NSAIDs, PT, HEP and/or Icer Hand within last 3-6 months) . For possible Lumbar Radiculopathy due to presence of red flags detailed in HPI, interventional planning, surgical planning, progressive leg weakness, and leg pain unresponsive to medical management. I spent a total of 40 minutes on the date of the service which included preparing to see the patient, [id number] patient care, completing clinical documentation, obtaining and/or reviewing separately obtained history, performing a medically appropriate examination, counseling and educating the pat ient/family/caregiver, independently interpreting results (not separately reported), and communicating results to the patient/family/caregiver. SIGNATURE: Shea Plasencia APRN.CNP PATIENT NAME: Porter Maravilla DATE: January 13, 2023 TIME: 9:10 PM PAGER: documented [facility]23 NoteHNO ID: [id number] Author: RT Ronn(R) Service: Radiology Author Type: Technologist Type: Progress Notes Filed: 01/13/2023 4:23 PM Note Text: Radiology Service Progress Note PATIENT NAME: Porter Maravilla DATE OF SERVICE: January 13, 2023 TIME: 4:23 PM PATIENT IDENTITY VERIFICATION COMPLETED USING TWO (2) IDENTIFIERS: Name and Date of confirmed by patient verbally. FALL SCREENING: Has the patient had 2 falls in the last year or 1 fall with injury or currently using an Ambulatory Assistive Device (Walker, Cane, Wheelchair, Crutches, etc.)? No PATIENT GENDER DATA: Male PATIENT RELEVANT IMPLANT DATA REVIEWED: Not Applicable RADIOLOGY DEPARTMENT: General X-ray: Exam(s) Completed: Lower Extremity X-Ray(s): Knee, AP / Lat / Tunne / Merchant Bilateral PERIPHERAL IV DATA: Not applicable SIGNED BY: RT Ronn(Kathie) January 13, 2023 4:23 [facility]05-03-2023 NoteHNO ID: [id number] Author: Sahra Oliva DO Service: ? Author Type: Physician Type: Progress Notes Filed: 01/13/2023 2:46 PM Note Text: UNIVERSAL PROTOCOL / SAFETY CHECKLIST Procedure to be Performed: EMG Sign In: A Moment of CARE was completed. Personnel directly involved with the procedure wore the appropriate PPE (Personal Protective Equipment). Patient/Surrogate Stated/Verified: PATIENT VERIFIED(optional for EMERGENT procedures): Patient name, Date of , Relevant allergies, and The intended procedure Time Out Communication: Intended patient and procedure match the source documents. Correct side/site marked and visible. Sign Out: SIGN OUT (optional for EMERGENT procedures): Post-procedure follow-up management communicated and Plan of Care Visit completed when applicable. Kathie Lafleur, [facility]05-03-2023 History of Present illness Narrative* Sahra Oliva DO - 01/13/2023 1:28 PM EDT UNIVERSAL PROTOCOL / SAFETY CHECKLIST Procedure to be Performed: EMG Sign In: A Moment of CARE was completed. Personnel directly involved with the procedure wore the appropriate PPE (Personal Protective Equipment). Patient/Surrogate Stated/Verified: PATIENT VERIFIED(optional for EMERGENT procedures): Patient name, Date of , Relevant allergies, and The intended procedure Time Out Communication: Intended patient and procedure match the source documents. Correct side/site marked and visible. Sign Out: SIGN OUT (optional for EMERGENT procedures): Post-procedure follow-up management communicated and Plan of Care Visit completed when applicable. Kathie Lafleur DO [facility]23 NoteHNO ID: [id number] Author: Shea Plasencia APRN.YVON Service: ? Author Type: Nurse Practitioner Type: Progress Notes Filed: 01/06/2023 10:40 AM Note Text: SPINE SURGERY OUTPATIENT CONSULT This is an in-person visit. SERVICE DATE: 01/06/2023 PCP: Андрей Goode DO REFERRING PROVIDER: No referring provider defined for this encounter. Consult requested for an opinion regarding the evaluation and treatment of low back and left leg pain. My final impression and recommendations will be communicated back to the requesting physician by way of the shared medical record or letter via US mail. SUBJECTIVE Porter Maravilla is a 37 year old male presenting with partner. CHIEF COMPLAINT: low back pain and left leg pain Patient comes in with a chief complaint complaint today left leg pain specifically in his knee difficulty walking he has to walk slow and with a limp and he does fall often he has to use a cane. He also endorses numbness in his toes as well as back pain. Patient states that he went to his orthopedic doctor after his knee surgery and stated his leg was still in pain and he was having that numbness therefore his orthopedic recommended he see a spine doctor and thought it is coming from his back and prior fusion. Patient does not think it is coming from his back he believes that something is wrong with his knee. He also endorses that he gets severe muscle spasms when he walks due to pain he currently is not taking any medic muscle relaxants for this. Patient states is really hindering his life he is unable to work and do the things he enjoys due to the pain he experiences in his leg as well as his back. Surgical hx: left knee replacement 8 months and lumbar fusion 2 year ago Denies bowel and bladder incontinence. Denies trouble using hands. CMT: Ibuprofen Voltaren and gabapentin gel Physical therapy 6 weeks ago Injection on December 03 was his last injection which provided him minimal relief. HISTORY OF PRESENT ILLNESS PRECIPITATING EVENT: None DURATION OF SYMPTOMS: Greater Than 1 Year PAIN EVALUATION 01/05/2023 1441 Pain Level: -- 7.5 Pain Location: Back-Lower Description: Stabbing Duration Amount of Time: -- over 2 years Duration Units: Years Frequency: Continuous Intervention/Comfort measure: Exercise;Heat;Cold;Relaxation;Other: See comment injections Pain Radiation: down the left thigh and below the left knee Aggravating Factors: Change of position (sit to stand), Standing, Walking, Walking upstairs, Walking downstairs Alleviating Factors: None Pain Ratio: Pain in the leg(s) is greater than in the back AMBULATORY STATUS: Impaired Community Distances ANTIPLATELET OR ANTICOAGULATION STATUS: No PREVIOUS CONSERVATIVE TREATMENTS: See HPI PREVIOUS SPINAL SURGERY: SURGERY #1: L5-S1 Fusion 2020 There is no problem list on file for this patient. PAST MEDICAL HISTORY Diagnosis Date Arachnoid cyst Bipolar disorder (HCC) Depression Epilepsy (HCC) History of high blood pressure Migraines PAST SURGICAL HISTORY Procedure Laterality Date ARTHROSCOPY KNEE DIAGNOSTIC W/WO SYNOVIAL BX SPX Left PAST SURGICAL HISTORY OF lumbar fusion REMOVAL GALLBLADDER TONSILLECTOMY HX FAMILY HISTORY Problem Relation Age of Onset Diabetes Maternal Grandfather Hypertension Maternal Grandfather Social History Tobacco Use Smoking status: Former Types: Cigarettes Smokeless tobacco: Never Vaping Use Vaping Use: current everyday user Substance Use Topics Alcohol use: Not Currently Drug use: Never ALLERGIES Allergen Reactions Penicillins Swelling Toradol [Ketorolac] Other: See Comments seizure Tramadol Mental Status Change MEDICATIONS: celecoxib (CELEBREX) 200 mg capsule 200 mg once daily. hydrOXYzine HCl (ATARAX) 25 mg tablet 25 mg three times daily as needed. lamoTRIgine (LAMICTAL) 100 mg tablet 100 mg twice daily. lithium carbonate (ESKALITH) 300 mg capsule 300 mg three times daily with meals. QUEtiapine (SEROQUEL) 200 mg tablet Take 200 mg by mouth. traZODone (DESYREL) 50 mg tablet 100 mg daily at bedtime. QUEtiapine (SEROQUEL) 400 mg tablet Take 800 mg by mouth daily at bedtime. ibuprofen (MOTRIN) 800 mg tablet Take 800 mg by mouth every 8 hours as needed. pantoprazole sodium (PROTONIX ORAL) Take by mouth as needed. brexpiprazole (REXULTI) 0.5 mg tablet 0.5 mg once daily. (Patient not taking: Reported on 01/05/2023) busPIRone (BUSPAR) 10 mg tablet 10 mg twice daily. (Patient not taking: Reported on 01/05/2023) REVIEW OF SYSTEMS: GENERAL: No weight loss or malaise MUSCULOSKELETAL: + knee pain, LBP NEURO: No history of headaches, syncope, paralysis, seizures or tremors Patient Entered Questionnaires PROMIS Score Percentiles Percentiles provide an indication of how the patient's score ranks in relation to the general population. Higher percentile rankings indicate better function/quality of life. 50th pe (more content not included)...[facility]04-14-2023 NoteHNO ID: [id number] Author: Bernadine Kincaid PA-C Service: ? Author Type: Physician Senior Cost Estimator Type: Progress Notes Filed: 12/25/2022 5:07 PM Note Text: Per Triage: Porter Maravilla is a 37 year old male that requests evaluation of spine. Per review, they have symptoms of lower back pain, left leg pain. Numbness big toes bilaterally. Difficulty walking, weakness Request: 1st available Referring provider: Jelena Gregorio Patient out of state: no 2nd opinion: no Prior spine surgery: yes 2020 [facility] Address: [address] [place] [address] [place] [address] CMT: PT Injections IBU Studies (Reports unless indicated) Lumbar xrays report 10/22/22: Posterior fusion at L5-S1 No hardware complication. MRI lumbar spine report 01/19/22: Evidence pf prior L5-S1 fusion Mild spondylosis EMG report 10/21/21: Normal Disposition: Based on triage, recommend patient be scheduled with surgical ELYSSA for eval. MRI is normal. May need CT lumbar to assess the fusion If VV, please advise pt to send or upload relevant outside images prior to appt so they will be available for review during the appt If office visit, please advise pt to hand carry relevant images on CD to the appt so they can be reviewed during the appt [facility] of Present illness Narrative* Bernadine Kincaid PA-C - 12/25/2022 4:58 PM EDT Per Triage: Porter Maravilla is a 37 year old male that requests evaluation of spine. Per review, they have symptomsof lower back pain, left leg pain. Numbness big toes bilaterally. Difficulty walking, weakness Request: 1st available Referring provider: Jelena Gregorio Patient out of state: no 2nd opinion: no Prior spine surgery: yes 2020 [facility] Address: [address] [place], [place] [address], [place] [address] CMT: PT Injections IBU Studies (Reports unless indicated) Lumbar xrays report 10/22/22: Posterior fusion at L5-S1 No hardware complication. MRI lumbar spine report 01/19/22: Evidence pf prior L5-S1 fusion Mild spondylosis EMG report 10/21/21: Normal Disposition: Based on triage, recommend patient be scheduled with surgical ELYSSA for eval. MRI is normal. May needCT lumbar to assess the fusion If VV, please advise pt to send or upload relevant outside images prior to appt so they will be available for review during the appt If office visit, please advise pt to hand carry relevant images on CD to the appt so they can be reviewed during the appt Bernadine Kincaid PA-C * Donny Downs - 12/25/2022 1:57 PM EDT Patient name: Porter Maravilla Are you being referred by a Center for Spine Health Provider or Pain Management Provider at [facility]? No If answer is YES please schedule directly with surgeon, triage does not need to be completed. Is this a self-referral No If not, who is the Referring Provider Jelena Gregorio Is this a 2nd opinion? No Were you offered surgery? No MRI/CT/myelogram within 12 months? Yes If NO , please refer to medical spine or PCP to complete above imaging, triage does not need to be completed If YES, please ask for the name/address of the facility where the MRI/CT/myelogram was completed: [facility] Address: [address] [place] [address] MRI/CT/myelogram viewable in Epic: No If not, please provide [phone] to fax in imaging reports for review. Also, please inform patient to hand carry imaging disc to appointment. XR (spine) within 12 months: No If YES, please ask for the name/address of the facility where the XR was completed: Dr. Lugo's patients: Have you had previous EMG/Nerve Conduction Study, Ultrasound, or MRI for thesesame symptoms? If YES, please ask for the name/address of the facility where they were completed: Requested provider (First and Last name): UN Are you interested in a virtual visit if offered? No 1. Where are you having symptoms related to this visit? Back pain Leg pain (L) Numbness Big toes bi lateral Back pain Yes Leg pain Yes Arm pain No Neck pain No 2. Are you having any of the following symptoms: Difficulty walking Yes Numbness Yes Weakness Yes Trouble using your hands? No 3. Have you had any injections or physical therapy in the last 12 months? Yes If YES then please ask for the name/address of the facility where the injections and/or physical therapy was completed PT [facility] [place] Address: [address] [place] [address] Injections [facility] Address: [facility] [place] [id number] Have you tried any other kinds of non-surgical treatments in the last 12 months? (For example: NSAIDS, muscle relaxants, analgesics, oral steroids, Chiropractor, Acupuncture): Ibuprofen 4. Are you currently taking daily prescribed narcotic medications for your current symptoms (For example Oxycodone, Hydrocodone, Tramadol, Morphine, Other)? No 5. Have you had previous spinal surgery for this same symptoms? Yes If YES please ask for the name of facility/address of where the surgery was completed: 2020 [facility] Address: [facility] [place] [place] [id number] Additional Comments [facility]2023 NoteHNO ID: [id number] Author: Donny Downs Service: ? Author Type: ? Type: Progress Notes Filed: 12/25/2022 5:07 PM Note Text: Patient name: Porter Maravilla Are you being referred by a Center for Spine Health Provider or Pain Management Provider at [facility]? No If answer is YES please schedule directly with surgeon, triage does not need to be completed. Is this a self-referral No If not, who is the Referring Provider Jelena Gregorio Is this a 2nd opinion? No Were you offered surgery? No MRI/CT/myelogram within 12 months? Yes If NO , please refer to medical spine or PCP to complete above imaging, triage does not need to be completed If YES,? please ask for the name/address of the facility where the MRI/CT/myelogram was completed: [facility] Address: [facility] [place] [id number] MRI/CT/myelogram viewable in Epic: No If not, please provide [phone] to fax in imaging reports for review. Also, please inform patient to hand carry imaging disc to appointment. XR (spine) within 12 months: No If YES,? please ask for the name/address of the facility where the XR was completed: Dr. Lugo's patients: Have you had previous EMG/Nerve Conduction Study, Ultrasound, or MRI for these same symptoms? If YES,? please ask for the name/address of the facility where they were completed: Requested provider (First and Last name): UN Are you interested in a virtual visit if offered? No 1. Where are you having symptoms related to this visit? Back pain Leg pain (L) Numbness Big toes bi lateral Back pain Yes Leg pain Yes Arm pain No Neck pain No 2. Are you having any of the following symptoms: Difficulty walking Yes Numbness Yes Weakness Yes Trouble using your hands? No 3. Have you had any injections or physical therapy in the last 12 months? Yes If YES then please ask for the name/address of the facility where the injections and/or physical therapy was completed PT [facility] Address: [address] [place] [address] Injections [facility] Address: [address] [place], [place] [address] [address] Have you tried any other kinds of non-surgical treatments in the last 12 months? (For example: NSAIDS, muscle relaxants, analgesics, oral steroids, Chiropractor, Acupuncture): Ibuprofen 4. Are you currently taking daily prescribed narcotic medications for your current symptoms (For example Oxycodone, Hydrocodone, Tramadol, Morphine, Other)? No 5. Have you had previous spinal surgery for this same symptoms? Yes If YES? please ask for the name of facility/address of where the surgery was completed: 2020 [facility] Address: [facility] [place] [address] Additional Comments [facility]03-30-2023 Evaluation note* Encounter Date Diagnosis Assessment Notes Treatment Notes Treatment Clinical Notes Nov, Lumbar radiculopathy (ICD-10 - M54.16) Stable. Nov, Failed back syndrome (ICD-10 - M96.1) 37 year old male here for follow up status post caudal epidural steroid injection with a Racz catheter and lysis of adhesions under fluoroscopic guidance. Patient reports about 50% pain relief in his lower extremity as well as improved walking, standing and daily functions following procedure. He voices complaints of residual low back pain with radiation down the posterior aspect of bilateral lower extremities to the feet. He states pain in the lower extremities is worse on the left, right leg pain occurs more with ambulation. He also notes left knee pain which he feels is his worst pain. I advised him that I do not feel his knee pain is coming from his spine and that it is probably a separate issue. He is encouraged to continue with Dr. Gregorio for his knee issues. In the meantime I will order a topical coumpound cream as needed to painful areas. Nov, Left knee pain (ICD-10 - M25.562) Continue to see Dr. Gregorio. Nov, Chronic pain (ICD-10 - G89.29) Continue with current treatment plan [facility] Other 03-08-2023 Evaluation note* Encounter Date Diagnosis Assessment Notes Treatment Notes Treatment Clinical Notes Nov, Lumbar radiculopathy (ICD-10 - M54.16) Patient is 9 months status post left transforaminal epidural steroid injection under fluoroscopic guidance. He reports 80-90% pain relief and increased function fof 3-4 months. Nov, Failed back syndrome (ICD-10 - M96.1) 37 year old male here for follow up to discuss chronic pain. He voices complaints of low back and left hip pain with radiation down the outer aspect of the left lower extremity to the ankle. He feels pain negatively impacts his daily activities and sleeping pattern. Anatomy of spine discussed in detail with patient in regards to patients condition. Patient is a candidate for a caudal epidural steroid injection under fluoroscopic guidance. Risks and benefits of procedure explained to patient; patient verbalizes understanding. Nov, Left knee pain (ICD-10 - M25.562) Recent imaging of the left knee shows good placement of hardware. If his pain persists, we can consider proceeding with a left genicular nerve block followed by a RFA if applicable under fluoroscopic guidance. Nov, Chronic pain (ICD-10 - G89.29) Continue with current treatment plan [facility] Other 02-09-2023 Evaluation note* Encounter Date Diagnosis Assessment Notes Treatment Notes Treatment Clinical Notes Oct, Spondylolisthesis, lumbar region (ICD-10 - M43.16) Mr. Maravilla is acute on chronic lumbar pain s/p ALIF 09/2020. I independently reviewed the x-ray of the lumbar spine showing posterior fusion at the L5-S1 which is unchanged, no hardware complication or malalignment. Review in detail the result. Discussion of gait as he recently underwent total knee replacement in May 2022. No radicular symptoms following dermatomal distribution. Upon examination noted Sacrolilac tenderness on palpation. Will continue with conservative therapy Physical Therapy. Will refer patient back to pain management, Dr Wright, for sacroiliac injection therapy. Follow up in 3 months or sooner if symptoms worsen or do not improve. Oct, Lumbosacral spondylosis (ICD-10 - M47.817) Oct, Sacroiliac inflammation (ICD-10 - M46.1) [facility] Other 06-29-2022 Evaluation note* Encounter Date Diagnosis Assessment Notes Treatment Notes Treatment Clinical Notes Feb, Lumbar radiculopathy (ICD-10 - M54.16) 36 year old male evaluated via virtual visit to discuss his recent procedure. He is status post left L5 and S1 transforaminal epidural steroid injection under fluoroscopic guidance. Patient reports 95% relief of his lower extremity cramps. He complains of low back pain with radiation down the left lower extremity to the ankle. I recommend proceeding with a caudal epidural steroid injection. Risks and benefits of procedure explained to patient; patient verbalizes understanding. Feb, Failed back syndrome (ICD-10 - M96.1) Stable. Feb, Sacroiliitis (ICD-10 - M46.1) If his pain persists or worsens, we can consider proceeding with sacroiliac joint injections in the future. Feb, Chronic pain (ICD-10 - G89.29) Continue with current treatment plan, follow up after procedure. [facility] Other 06-06-2022 Evaluation note* Encounter Date Diagnosis Assessment Notes Treatment Notes Treatment Clinical Notes Feb, Lumbar radiculopathy (ICD-10 - M54.16) 36 year old male here for follow up for chronic pain. He was last seen in June 2020. He voices complaints of low back pain with radiation down the left lower extremity to the ankle. He also complains of left knee pain. He states he had a left knee surgery since his last office visit however his meniscus keeps tearing. He states he also had back surgery since his last office visit. MRI of the lumbar spine was reviewed and discussed in detail with the patient which shows mild disc space narrowing of the lumbar spine. Anatomy of spine as well as different treatment options were discussed in detail with patient in regards to patients condition. I recommend we proceed with a L5, S1 transforaminal epidural steroid injection under fluoroscopic guidance. Risks and benefits of procedure explained to patient; patient verbalizes understanding. Feb, Failed back syndrome (ICD-10 - M96.1) If his pain persists or worsens, we can consider proceeding with a caudal epidural steroid injection with a Racz catheter in the future, if applicable. Feb, Sacroiliitis (ICD-10 - M46.1) If his pain persists or worsens, we can consider proceeding with sacroiliac joint injections in the future. Feb, Chronic pain (ICD-10 - G89.29) Continue with current treatment plan, follow up after procedure. [facility] Other 05-18-2022 Evaluation note* Encounter Date Diagnosis Assessment Notes Treatment Notes Treatment Clinical Notes January, Spondylolisthesis, lumbosacral region (ICD-10 - M43.17) The patient spinal listhesis is corrected and he has no ongoing compression. He may still have residual L5 radiculopathy because of damage to the nerve. As such I think it is reasonable for him to be seen by pain management for selective left L5 nerve root both diagnostically and therapeutically. If that all works out for him negative then I think he has to spend more time working on his hip and knee. He is following with an orthopedic physician for those issues. Patient has already seen Dr Wright for pain management in the past, I will send a copy of my notes to him for recommendations for selective left L5 nerve root injections January, Lumbosacral spondylosis (ICD-10 - M47.817) [facility] Other 03-16-2022 Evaluation note* Encounter Date Diagnosis Assessment Notes Treatment Notes Treatment Clinical Notes Nov, Spondylolisthesis, lumbosacral region (ICD-10 - M43.17) Nov, Spondylolisthesis, lumbar region (ICD-10 - M43.16) My sense is the patient probably has developed degenerative changes and breakdown of the disc at the level above his previous fusion. I had previously asked the patient to get involved in physical therapy prior to an MRI which he did not do. That has now been reset up since the original prescription . He will contact us after he has had a few weeks of therapy to make a determination if we should order an MRI. [facility] Other 11-17-2021 Evaluation note* Encounter Date Diagnosis Assessment Notes Treatment Notes Treatment Clinical Notes Jul, Spondylolisthesis, lumbosacral region (ICD-10 - M43.17) The patient has not had an evaluation of his spine since December of this year. He is now about 9 or 10 months from surgery and I would like to have at least a plain set of x-rays to see how well his fusion is. With his continued symptoms into his legs I would like to make sure he does not have compressive pathology. Prior to considering conservative treatment I would like that he has an MRI scan of his lumbar spine. We will order and review those studies and contact him once results are available. [facility] Other evaluation noteNo InformationNort [employer] Other evaluation noteNo assessment information available [facility] Work Phone: Evaluation note* Diagnosis S/P lumbar fusion- Primary Arthrodesis status Lumbar radiculopathy Thoracic or lumbosacral neuritis or radiculitis, unspecified [facility]* Diagnosis Weakness generalized- Primary Other malaise and fatigue Radiculopathy of lumbar region Thoracic or lumbosacral neuritis or radiculitis, unspecified S/P lumbar fusion Arthrodesis status Compression of common peroneal nerve of left lower extremity documented [facility] this [facility]* Diagnosis Spondylosis with myelopathy, thoracic region- Primary Gait instability Abnormality of gait Radiculopathy of lumbar region Thoracic or lumbosacral neuritis or radiculitis, unspecified Effusion of left knee Effusion of lower leg joint Tear of medial meniscus of right knee, current, unspecified tear type, initial encounter documented [facility] this [facility]* Diagnosis Left leg pain- Primary Pain in limb Chronic pain of left knee Pain in joint, lower leg Myofascial pain Mylagia and myositis, unspecified Spasm of muscle documented [facility] encounter [facility]* Diagnosis Pain due to total left knee replacement, initial encounter ([facility])- Primary Effusion of left knee Effusion of lower leg joint Tear of medial meniscus of right knee, current, unspecified tear type, initial encounter [facility] Diagnosis Chronic pain of left knee- Primary Pain in joint, lower leg [facility]* Diagnosis Neuralgia and neuritis- Primary Neuralgia, neuritis, and radiculitis, unspecified Left leg pain Pain in limb Myofascial pain Mylagia and myositis, unspecified Spasm of muscle Lumbar pain Lumbago Bilateral chronic knee pain Pain in joint, lower leg History of seizure Personal history of other disorders of nervous system and sense organs History of left knee replacement BMI 30.0-30.9,adult Body Mass Index 30.0-30.9, adult [facility] Diagnosis Status post total left knee replacement- Primary documented in this encounter [facility] Diagnosis Left leg pain- Primary Pain in limb Chronic pain of left knee Pain in joint, lower leg Spasm of muscle Gait instability Abnormality of gait Suicidal ideation documented in this encounter [facility] Diagnosis History of left knee replacement- Primary Chronic pain of left knee Pain in joint, lower leg Bipolar 1 disorder (HCC) Bipolar I disorder, most recent episode (or current) unspecified documented in this encounter [facility] note* Diagnosis Treatment not available- Primary Procedure not carried out for other reasons documented in this encounter [facility] note* Diagnosis Chronic pain syndrome- Primary Pain disorder associated with psychological factors and medical condition Other pain disorders related to psychological factors RESHMA (generalized anxiety disorder) Generalized anxiety disorder Chronic use of benzodiazepine for therapeutic purpose MDD (major depressive disorder), recurrent episode, moderate (HCC) Major depressive disorder, recurrent episode, moderate documented in this encounter [facility] general Narrative - Reported* Type Description Date Medical History DEPRESSION Medical History BIPOLAR Medical History 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 Surgical History TONSILS Surgical History ORAL SURGERY/ WISDOM TEETH Surgical History GALLBLADDER Surgical History left knee scope with medial men isectomy 02/2020 Surgical History [facility] Hospitalization History [facility] Hospitalization History [facility] Other History general Narrative - Reported* Type Description Date Medical History DEPRESSION Medical History BIPOLAR Medical History 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 Medical History Arthritis Medical History epilepsy Medical History gall bladder disease Medical History migraine headache Medical History chronic depression Surgical History TONSILS Surgical History ORAL SURGERY/ WISDOM TEETH Surgical History GALLBLADDER Surgical History left knee scope with medial men isectomy 02/2020 Surgical History ALIF-[facility] Hospitalization History SEE AB[facility] SURGERY Hospitalization History [facility] Other reason for visit NarrativeINCREASE BACK PAIN DIS[facility] Other Summary Purpose Family History No Family History Records Found Relationship Condition Age at Onset Recorded Date/T marilee grandparent Malignant neoplasm of prostate Unknown Diabetes mellitus Unknown Not Specified Unknown family medical history Unknown father Unknown family medical history Unknown Advance Directives No Advanced Directives Records Found Advance Directive Response Recorded Date/ Time Advance Directives No December 22 1:35pm Advance Directive Response Recorded Date/ Time Advance Directives No December 22 12:35pm Reason for Referral Specialty Diagnoses / Procedures Referred By Deb juarez Referred To Contact Diagnoses History of left knee replacement Chronic pain of left knee Procedures PROVIDER ORDERED FOLLOW UP OFFICE/OUTPATIENT [facility] 60-74 MINUTES Fuad Pierce PA-C [address] [place] [address] Referral ID Status Reason Start Date Expiration Date Visits Requested Visits Authorized [id number] Authorized PCP Requested Referral 3 06/27/2024 1 1 Specialty Diagnoses / Procedures Referred By Contac t Referred To [facility] [place] Diagnoses History of left knee replacement Chronic pain of left knee Bipolar 1 disorder (HCC) Procedures CONSULT TO [facility] ([facility]RON[facility] PAIN) OFFICE/OUTPATIENT [facility] 60-74 MINUTES Fuad Pierce PA-C [address] [place] [address] Referral ID Status Reason Start Date Expiration Date Visits Requested Visits Authorized [id number] Pending Review PCP Requested Referral 3 06/27/2024 1 1 Specialty Diagnoses / Procedures Referred By Contac t Referred To [facility] [place] Diagnoses History of left knee replacement Chronic pain of left knee Procedures CONSULT TO [facility] (CHRONIC PAIN) OFFICE/OUTPATIENT [facility] 60-74 MINUTES Fuad Pierce PA-C [address] [place] [id number] Referral ID Status Reason Start Date Expiration Date Visits Requested Visits Authorized [id number] Pending Review PCP Requested Referral 3 06/27/2024 1 1 Specialty Diagnoses / Procedures Referred By Contac t Referred To [facility] [place] Diagnoses Left leg pain Chronic pain of left knee Spasm of muscle Gait instability Procedures CONSULT TO [facility] (CHRONIC PAIN) OFFICE/OUTPATIENT [facility] 60-74 MINUTES Shea Plasencia APRN.[employer]OR [employer] [address] [place] [address] Referral ID Status Reason Start Date Expiration Date Visits Requested Visits Authorized [id number] Pending Review PCP Requested Referral 04/29/2023 04/27/2024 1 1 Specialty Diagnoses / Procedures Referred By Contac t Referred To Contact Pain Management Diagnoses Effusion of left knee Tear of medial meniscus of right knee, current, unspecified tear type, initial encounter Procedures CONSULT TO PAIN MGT OFFICE/OUTPATIENT [facility] 60-74 MINUTES Toribio Hammond PA-C [address] [place] [address] Referral ID Status Reason Start Date Expiration Date Visits Requested Visits Authorized [id number] Authorized PCP Requested Referral 03/05/2023 03/04/2024 1 1 Specialty Diagnoses / Procedures Referred By Contac t Referred To Contact Pain Management Diagnoses Left leg pain Myofascial pain Spasm of muscle Procedures CONSULT TO PAIN MGT OFFICE/OUTPATIENT [facility] 60-74 MINUTES Shea Plasencia APRN.[employer] [address] [place] [address] Referral ID Status Reason Start Date Expiration Date Visits Requested Visits Authorized [id number] Authorized PCP Requested Referral 03/02/2023 03/01/2024 1 1 Specialty Diagnoses / Procedures Referred By Contac t Referred To Contact MR IMAGING Diagnoses Radiculopathy of lumbar region Gait instability Spondylosis with myelopathy, thoracic region Procedures MRI THORACIC SPINE WO IVCON MRI SPINAL CANAL THORACIC W/O CONTRAST MATRL Shea Plasencia APRN.[employer] [address] [place] [address] Mr Imaging Referral ID Status Reason Start Date Expiration Date Visits Requested Visits Authorized [id number] Pending Review Auto-Generat ed Referral 01/13/2023 02/12/2024 1 1 Specialty Diagnoses / Procedures Referred By Contac t Referred To Contact Orthopedics Diagnoses Effusion of left knee Tear of medial meniscus of right knee, current, unspecified tear type, initial encounter Procedures CONSULT PANEL TO ORTHOPAEDICS OFFICE/OUTPATIENT [facility] 60-74 MINUTES Shea Plasencia APRN.[employer] [address] [place] [address] Referral ID Status Reason Start Date Expiration Date Visits Requested Visits Authorized [id number] Authorized PCP Requested Referral 01/13/2023 01/13/2024 1 1 Specialty Diagnoses / Procedures Referred By Contac t Referred To Contact XR IMAGING Diagnoses Effusion of left knee Tear of medial meniscus of right knee, current, unspecified tear type, initial encounter Gait instability Procedures XR KNEE GENERAL 4V AP BOTH/PA BOTH/LAT/MERC BILATERAL RADIOLOGIC EXAM KNEE COMPLETE 4/MORE VIEWS Shea Plasencia APRN.[employer] [address] [place] [address] Xr Imaging Referral ID Status Reason Start Date Expiration Date V isits Requested Visits Authorized [id number] Closed Auto-Generate d Referral 01/13/2023 02/12/2024 1 1 Reason 11/18/22 @ 1:45pm Evaluate and Treat SI Joint Pain Diagnosis 1 Sacroiliac inflammat ion (M46.1) Ref[facility] Referring Provider First Name Yolande Referring Provider Last Name Ebony Referring Provider Specialty Nurse Pract itioner Referred Organization [facility] Referred Provider Trey Wright Referred Address [address] [facility] [address] ,[place], [place],[address] Referred Provider Specialty Pain Medicin e Referral Priority Routine Referral Appointment Date 2022-11-18 General Notes Meera Fultonjuan Walden 023 07:21:41 AM >Received today and sending P2P. Patient is already established with Dr. Wright and was a no show to his last appt KirstinMarlin 11/04/2022 11:56:15 AM >Patient has been scheduled Reason Evaluate and Treat Diagnosis 1 Spondylolisthesis, l umbosacral region (M43.17) Referral Organization [facility] Referring Provider First Name Dario Referring Provider Last Name Lopez Referring Provider Specialty Neurosurger y Referred Organization [facility] Referred Address ,[place], [place],[address] Referred Provider Specialty Physical The rapist Referral Priority Routine Chief Complaint and Reason for Visit Chief Complaint Back Pain Back Pain DJD Chief Complaint m54.16 M25.562 Chief Complaint m25.562 Additional Source Comments (unrecognized sect ion and content) No Status Records FoundNo Status Records FoundNo Status Records FoundNo Status Records FoundNo Status Records FoundNo Status Records FoundNo Status Records FoundNo Status Records FoundNo Status Records Found INFORMATION SOURCE (unrecogn ized section and content) DATE CREATED AUTHOR 03/08/2018 [facility] DATE CREATED AUTHOR AUTHOR'S ORGANIZ ATION 09/08/2021 [facility] DATE CREATED AUTHOR AUTHOR'S ORGANIZ ATION 01/24/2023 [facility] DATE CREATED AUTHOR AUTHOR'S ORGANIZ ATION 06/18/2023 [facility] DATE CREATED AUTHOR AUTHOR'S ORGANIZ ATION 08/11/2023 [facility] DATE CREATED AUTHOR AUTHOR'S ORGANIZ ATION 08/31/2023 [facility] DATE CREATED AUTHOR AUTHOR'S ORGANIZ ATION 04/30/2024 [facility] DATE CREATED AUTHOR AUTHOR'S ORGANIZ ATION 05/29/2024 [facility] DATE CREATED AUTHOR AUTHOR'S ORGANIZ ATION 06/13/2024 [facility] REASON FOR VISIT (unrecogniz ed section and content) Reason Onset Date Comments EMG 01/13/2023 Specialty Diagnoses / Procedures Referred By Contac t Referred To Contact [facility] Diagnoses Radiculopathy of lumbar region S/P lumbar fusion Compression of common peroneal nerve of left lower extremity Procedures EMG(NEURO/NI) NERVE CONDUCTION STUDIES 9-10 STUDIES Shea Plasencia APRN.[employer] [address] [place] [address] [facility] [place] [address] [place] [address] Referral ID Status Reason Start Date Expiration Date V isits Requested Visits Authorized [id number] Closed Auto-Generate d Referral 01/06/2023 09/12/2023 1 1 Specialty Diagnoses / Procedures Referred By Contac t Referred To Contact CT IMAGING Diagnoses Radiculopathy of lumbar region Procedures CT LUMBAR SPINE WO IVCON CT LUMBAR SPINE W/O CONTRAST MATERIAL Shea Plasencia APRN.[employer] [address] [place] [address] Ct Imaging Referral ID Status Reason Start Date Expiration Date Visits Requested Visits Authorized [id number] Pending Review Auto-Genera mejia Referral Patient Cleared - Admin/Chair man/Directo r advise to proceed 01/05/2023 02/04/2024 1 1 Reason Comments Refill Request Specialty Diagnoses / Procedures Referred By Contac t Referred To Contact Orthopedics Diagnoses Effusion of left knee Tear of medial meniscus of right knee, current, unspecified tear type, initial encounter Procedures CONSULT PANEL TO ORTHOPAEDICS OFFICE/OUTPATIENT [facility] 60-74 MINUTES Shea Plasencia APRN.SU[employer] [address] [place] [address] Referral ID Status Reason Start Date Expiration Date V isits Requested Visits Authorized [id number] Closed PCP Requested Referral 01/13/2023 01/13/2024 1 1 Reason Comments Patient Question Results labs Reason Comments Follow Up Medication Update Specialty Diagnoses / Procedures Referred By Contac t Referred To Contact Pain Management Diagnoses Left leg pain Myofascial pain Spasm of muscle Procedures CONSULT TO PAIN MGT OFFICE/OUTPATIENT NEW [facility]IGH MDM 60-74 MINUTES Shea Plasencia APRN.CNP [address] [place] [address] Referral ID Status Reason Start Date Expiration Date V isits Requested Visits Authorized [id number] Closed PCP Requested Referral 03/02/2023 03/01/2024 1 1 Reason Comments Nurse Triage Call TENS unit informatio n Reason Comments New Reason Comments Follow Up Reason Comments Patient Question Pain Reason Comments New Patient Reason Comments Back Pain Reason Comments Chronic Pain Stress Specialty Diagnoses / Procedures Referred By Contac t Referred To Contact [facility] [place] Diagnoses History of left knee replacement Chronic pain of left knee Bipolar 1 disorder (HCC) Procedures CONSULT TO [facility] (CHRONIC PAIN) OFFICE/OUTPATIENT [facility] 60-74 MINUTES Fuad Pierce PA-C [address] [place] [address] Referral ID Status Reason Start Date Expiration Date Visits Requested Visits Authorized [id number] Pending Review PCP Requested Referral 06/27/2024 1 1 Care Teams (unrecognized sec tion and content) Team Status: Active Member Role Status Dates PHYSICIAN NO FAMILY Primary Care Provider Active Team Status: Inactive Member Role Status Dates PHYSICIAN NO FAMILY Primary Care Provider Active Jelena Gregorio Jr, DO Attending Provider Active Team Status: Inactive Member Role Status Dates PHYSICIAN NO FAMILY Primary Care Provider Active Trey Wright MD Attending Provider Active Team Status: Inactive Member Role Status Dates Jelean Gregorio Jr, DO Attending Provider Active NON STAFF Primary Care Provider Active Team Status: Active Member Role Status Dates NON STAFF Primary Care Provider Active Team Status: Inactive Member Role Status Dates NON STAFF Primary Care Provider Active Jelena Gregorio Jr, DO Attending Provider Active Team Status: Inactive Member Role Status Dates Isaías Underwood MD Attending Provider Active PHYSICIAN NO FAMILY Primary Care Provider Active Shanda Witt , LeonardD Other Provider Active 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 Relationship Specialty Start Date End Date Андрей Goode [address] [address] PCP - General Family Medicine 07/26/19 George Chaparro, DO [address] [place] [address] Referring Neurology 07/26/19 Raisa Cabrera PA-C [address] [place] [address] Referring Neurology 02/17/21 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 Relationship Specialty Start Date End Date Андрей Goode [address] [address] PCP - General Family Medicine 07/26/19 George Chaparro, DO [address] [place] [address] Referring Neurology 07/26/19 Raisa Cabrera PA-C [address] [place] [address] Referring Neurology 02/17/21 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 Relationship Specialty Start Date End Date Андрей Goode [address] [address] PCP - General Family Medicine 07/26/19 George Chaparro, DO [address] [place] [address] Referring Neurology 07/26/19 Raias Cabrera PA-C [address] [place] [address] Referring Neurology 02/17/21 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 Relationship Specialty Start Date End Date [facility] [address] [address] PCP - General Family Medicine 07/26/19 George Chaparro, DO [address] [place] [address], [place] [address] Referring Neurology 07/26/19 Raisa Cabrera PA-C [address] [place] [address], [place] [address] Referring Neurology 02/17/21 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 Relationship Specialty Start Date End Date [facility] [address] [address] PCP - General Family Medicine 07/26/19 George Chaparro, DO [address] [facility] [place] [address] Referring Neurology 07/26/19 Raisa Cabrera PA-C [address] [place] [address] Referring Neurology 02/17/21 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 Relationship Specialty Start Date End Date [facility] [address] [address] PCP - General Family Medicine 07/26/19 George Chaparro, DO [address] [place] [address] Referring Neurology 07/26/19 Raisa Cabrera PA-C [address] [place] [address], [place] [address] Referring Neurology 02/17/21 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 Relationship Specialty Start Date End Date [facility] [address] [address] PCP - General Family Medicine 07/26/19 George Chaparro, DO [address] [place] [address] Referring Neurology 07/26/19 Raisa Cabrera PA-C [address] [place] [address] Referring Neurology 02/17/21 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 Relationship Specialty Start Date End Date RusselАндрей Dick [address] [facility] [place] [address] PCP - General Family Medicine 07/26/19 George Chaparro, [address] [place] [address] Referring Neurology 07/26/19 Raisa Cabrera PA-C [address] [place] [address] Referring Neurology 02/17/21 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 Relationship Specialty Start Date End Date Андрей Goode [address] [facility] [place] [address] PCP - General Family Medicine 07/26/19 George Chaparro DO [address] [place] [address] Referring Neurology 07/26/19 Raisa Cabrera PA-C [address] [place] [address] Referring Neurology 02/17/21 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 Relationship Specialty Start Date End Date Андрей Goode [address] [facility] [place] [address] PCP - General Family Medicine 07/26/19 George Chaparro DO [address] [place] [address] Referring Neurology 07/26/19 Raisa Cabrera PA-C [address] [place] [address] Referring Neurology 02/17/21 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 Relationship Specialty Start Date End Date Russel Андрей Dick [address] [facility] [place] [address] PCP - General Family Medicine 07/26/19 George Chaparro DO [address] [place] [address] Referring Neurology 07/26/19 Raisa Cabrera PA-C [address] [address] Referring Neurology 02/17/21 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 Relationship Specialty Start Date End Date Андрей Goode [address] [place] [address], [place] [address] PCP - General Family Medicine 07/26/19 George Chaparro DO [address] [phone] Referring Neurology 07/26/19 Raisa Cabrera PA-C [address] [place] [address] Referring Neurology 02/17/21 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 Relationship Specialty Start Date End Date RigoАндрей oropeza Dick [address] [facility] [place] [address] PCP - General Family Medicine 07/26/19 George Chaparro DO [address] [place] [address] Referring Neurology 07/26/19 Raisa Cabrera PA-C [address] [place] [address] Referring Neurology 02/17/21 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 Relationship Specialty Start Date End Date Андрей Goode [address] [facility] [place] [address] PCP - General Family Medicine 07/26/19 George Chaparro DO [address] [place] [address] Referring Neurology 07/26/19 Raisa Cabrera PA-C [address] [place] [address] Referring Neurology 02/17/21 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 Relationship Specialty Start Date End Date Андрей Goode [address] [facility] [place] [address] PCP - General Family Medicine 07/26/19 George Chaparro DO [address] [place] [address] Referring Neurology 07/26/19 Raisa Cabrera PA-C [address] [place] [address] Referring Neurology 02/17/21 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 Relationship Specialty Start Date End Date Андрей Goode [address] [facility] [place] [address] PCP - General Family Medicine 07/26/19 George Chaparro DO [address] [place] [address] Referring Neurology 07/26/19 Raisa Cabrera PA-C [address] [address] Referring Neurology 02/17/21 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 Relationship Specialty Start Date End Date RigosusanneАндрей [address] [place] [address] PCP - General Family Medicine 07/26/19 George Chaparro DO [address] [address] Referring Neurology 07/26/19 Raisa Cabrera PA-C [address] [address] Referring Neurology 02/17/21 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 Relationship Specialty Start Date End Date Андрей Goode [address] [place] [address] PCP - General Family Medicine 07/26/19 George Chaparro DO [address] [place] [address] Referring Neurology 07/26/19 Raisa Cabrera PA-C [address] [place] [address] Referring Neurology 02/17/21 Goals (unrecognized section and content) Goals may be documented in a n alternate section Source Comments (unrecognize d section and content) In the event this informatio n is protected by the Federal Confidentiality of Alcohol and Drug Abuse Patient Records regulations: The Federal rules restrict any use of the information to criminally investigate or prosecute any alcohol or drug abuse patient.[facility] Health[facility] the event this information is protected by the Federal Confidentiality of Alcohol and Drug Abuse Patient Records regulations: The Federal rules restrict any use of the information to criminally investigate or prosecute any alcohol or drug abuse patient.[facility] Health[facility] the event this information is protected by the Federal Confidentiality of Alcohol and Drug Abuse Patient Records regulations: The Federal rules restrict any use of the information to criminally investigate or prosecute any alcohol or drug abuse patient.[facility] Health[facility] the event this information is protected by the Federal Confidentiality of Alcohol and Drug Abuse Patient Records regulations: The Federal rules restrict any use of the information to criminally investigate or prosecute any alcohol or drug abuse patient.[facility] Health[facility] the event this information is protected by the Federal Confidentiality of Alcohol and Drug Abuse Patient Records regulations: The Federal rules restrict any use of the information to criminally investigate or prosecute any alcohol or drug abuse patient.[facility] Health[facility] the event this information is protected by the Federal Confidentiality of Alcohol and Drug Abuse Patient Records regulations: The Federal rules restrict any use of the information to criminally investigate or prosecute any alcohol or drug abuse patient.[facility] Health[facility] the event this information is protected by the Federal Confidentiality of Alcohol and Drug Abuse Patient Records regulations: The Federal rules restrict any use of the information to criminally investigate or prosecute any alcohol or drug abuse patient.[facility] HealthIn the event this information is protected by the Federal Confidentiality of Alcohol and Drug Abuse Patient Records regulations: The Federal rules restrict any use of the information to criminally investigate or prosecute any alcohol or drug abuse patient.[facility] HealthIn the event this information is protected by the Federal Confidentiality of Alcohol and Drug Abuse Patient Records regulations: The Federal rules restrict any use of the information to criminally investigate or prosecute any alcohol or drug abuse patient.[facility] Health[facility] the event this information is protected by the Federal Confidentiality of Alcohol and Drug Abuse Patient Records regulations: The Federal rules restrict any use of the information to criminally investigate or prosecute any alcohol or drug abuse patient.[facility] HealthIn the event this information is protected by the Federal Confidentiality of Alcohol and Drug Abuse Patient Records regulations: The Federal rules restrict any use of the information to criminally investigate or prosecute any alcohol or drug abuse patient.[facility] HealthIn the event this information is protected by the Federal Confidentiality of Alcohol and Drug Abuse Patient Records regulations: The Federal rules restrict any use of the information to criminally investigate or prosecute any alcohol or drug abuse patient.[facility] HealthIn the event this information is protected by the Federal Confidentiality of Alcohol and Drug Abuse Patient Records regulations: The Federal rules restrict any use of the information to criminally investigate or prosecute any alcohol or drug abuse patient.[facility] HealthIn the event this information is protected by the Federal Confidentiality of Alcohol and Drug Abuse Patient Records regulations: The Federal rules restrict any use of the information to criminally investigate or prosecute any alcohol or drug abuse patient.[facility] HealthIn the event this information is protected by the Federal Confidentiality of Alcohol and Drug Abuse Patient Records regulations: The Federal rules restrict any use of the information to criminally investigate or prosecute any alcohol or drug abuse patient.[facility] HealthIn the event this information is protected by the Federal Confidentiality of Alcohol and Drug Abuse Patient Records regulations: The Federal rules restrict any use of the information to criminally investigate or prosecute any alcohol or drug abuse patient.[facility] HealthIn the event this information is protected by the Federal Confidentiality of Alcohol and Drug Abuse Patient Records regulations: The Federal rules restrict any use of the information to criminally investigate or prosecute any alcohol or drug abuse patient.[facility] HealthIn the event this information is protected by the Federal Confidentiality of Alcohol and Drug Abuse Patient Records regulations: The Federal rules restrict any use of the information to criminally investigate or prosecute any alcohol or drug abuse patient.[facility] HealthIn the event this information is protected by the Federal Confidentiality of Alcohol and Drug Abuse Patient Records regulations: The Federal rules restrict any use of the information to criminally investigate or prosecute any alcohol or drug abuse patient.[facility] HealthIn the event this information is protected by the Federal Confidentiality of Alcohol and Drug Abuse Patient Records regulations: The Federal rules restrict any use of the information to criminally investigate or prosecute any alcohol or drug abuse patient.[facility] HealthIn the event this information is protected by the Federal Confidentiality of Alcohol and Drug Abuse Patient Records regulations: The Federal rules restrict any use of the information to criminally investigate or prosecute any alcohol or drug abuse patient.[facility] HealthIn the event this information is protected by the Federal Confidentiality of Alcohol and Drug Abuse Patient Records regulations: The Federal rules restrict any use of the information to criminally investigate or prosecute any alcohol or drug abuse patient.[facility] HealthIn the event this information is protected by the Federal Confidentiality of Alcohol and Drug Abuse Patient Records regulations: The Federal rules restrict any use of the information to criminally investigate or prosecute any alcohol or drug abuse patient.[facility] HealthIn the event this information is protected by the Federal Confidentiality of Alcohol and Drug Abuse Patient Records regulations: The Federal rules restrict any use of the information to criminally investigate or prosecute any alcohol or drug abuse patient.[facility] FOR RECORDS PERTAINING TO PATIENTS WHO ARE OR HAVE BEEN ENROLLED IN A CHEMICAL DEPENDENCY/SUBSTANCEABUSE PROGRAM, SOME INFORMATION MAY BE OMITTED. This clinical summary was aggregated from multiple sources. Caution should be exercised in using it in the provision of clinical care. This summary normalizes information from multiple sources, and as a consequence, information in this document may materially change the coding, format and clinical context of patient data. In addition, data may be omitted in some cases. CLINICAL DECISIONS SHOULD BE BASED ON THE PRIMARY CLINICAL RECORDS. [facility] [employer] [facility]. provides no warranty or guarantee of the accuracy or completeness of information in this document.
[2024-06-14 08:22] LABS: Basophils Absolute Auto 0.1 10^3/uL (0.0-0.1); Basophils Percent Auto 0.9 % (0.2-2.0); Eosinophils Absolute Auto 0.4 10^3/uL (0.0-0.7); Eosinophils Percent Auto 7.4 % (0.9-7.0); Hematocrit 45.6 % (42.0-54.0); Hemoglobin 15.2 g/dL (14.0-18.0); Lymphocytes Absolute Auto 3.1 10^3/uL (1.2-3.8); Lymphocytes Percent Auto 57.3 % (20.5-60.0); Mean Corpuscular HGB Conc 33.3 g/dL (29.9-35.2); Mean Corpuscular Hemoglobin 29.6 pg (25.9-34.0); Mean Corpuscular Volume 88.9 fL (80.0-94.0); Mean Platelet Volume 10.4 fL (9.5-13.5); Monocytes Absolute Auto 0.4 10^3/uL (0.3-0.8); Monocytes Percent Auto 7.4 % (1.7-12.0); Neutrophils Absolute Auto 1.5 10^3/uL (1.4-6.5); Platelet Count 210 10^3/uL (150-450); Red Blood Count 5.13 10^6/uL (4.70-6.10); Red Cell Distribution Width 15.3 % (11.0-15.0); White Blood Count 5.4 10^3/uL (4.0-11.0)
[2024-06-14 08:44] LABS: Estimated Average Glucose 117 mg/dL; Glycohemoglobin A1C 5.7 % (4.5-6.2)
[2024-06-14 10:22] LABS: Alanine Aminotransferase 36 U/L (16-63); Albumin Globulin Ratio 1.1; Alkaline Phosphatase 179 U/L (46-116); Anion Gap 11.7; Aspartate Amino Transferase 27 U/L (15-37); BUN Creatinine Ratio 8.5; Bilirubin Total 0.4 mg/dL (0.2-1.0); Calcium 9.4 mg/dL (8.5-10.1); Carbon Dioxide 29.8 mmol/L (21.0-32.0); Chloride 101 mmol/L (98-107); Chol HDL Ratio 4.4; Cholesterol 161 mg/dL (<=200); Estimated GFR (African America >60 (>=60 mL/min/1.73m^2); Estimated GFR (Non-African Ame >60 (>=60 mL/min/1.73m^2); Free T3 3.14 pg/mL (2.18-3.98); Globulin 3.5 g/dL; Glucose 89 mg/dL (74-106); HDL Cholesterol 37 mg/dL (40-60); Potassium 3.5 mmol/L (3.5-5.1); Sodium 139 mmol/L (136-145); Thyroid Stimulating Hormone 1.936 uIU/mL (0.358-3.740); Total Protein 7.5 g/dL (6.4-8.2); Triglycerides 100 mg/dL (<=150)
[2024-06-15 08:14] LABS: Insulin 29.3 uIU/mL (2.6-24.9)
== END 2024-06-14 07:55 | disposition home or self-care (01) ==
LOC: LAB 07:56
PROVIDERS: PCP Nurse Practitioner Family; Visit Provider Nurse Practitioner Family
DX: K21.9 Gastro-esophageal reflux disease without esophagitis (principal)
CPT/HCPCS: 36415; 80053; 80061; 83036; 83525; 84436; 84443; 84481; 85025

== ENCOUNTER 2025-01-11 10:00 | Outpatient (OUT) | payer OTHER, SELFPAY ==
[2025-01-11 12:17] LABS: Estimated Average Glucose 123 mg/dL; Glycohemoglobin A1C 5.9 % (4.5-6.2)
[2025-01-12 06:07] LABS: Insulin 21.1 uIU/mL (2.6-24.9)
== END 2025-01-11 10:01 | disposition home or self-care (01) ==
LOC: LAB 10:02
PROVIDERS: PCP Nurse Practitioner Family; Visit Provider Nurse Practitioner Family
DX: R73.03 Prediabetes (principal)
CPT/HCPCS: 36415; 83036; 83525

== ENCOUNTER 2025-01-24 20:15 | Outpatient (OUT) | payer OTHER, SELFPAY ==
--- OUTSIDE RECORDS SUMMARY | 2025-01-24 20:21 | XMS_ITS | CCD ---
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 Signs/Symptoms:pain . ACCESSION NUMBER(S): [id number] ORDERING CLINICIAN: NAKUL SOSA FINDINGS: Three views left knee. Status post cemented total knee replacement subtle lucency along the tibial component unchanged from previous x-ray no evidence of fracture dislocation or other bony abnormality Signed by: Nakul Sosa 01/23/2025 1:45 PM Dictation workstation: [id number] [facility] Work Phone: [facility] Work Phone: Radiology Study observation (narrative) [facility] Work Phone: XR Knee - right 4 Viewson Interpreted By: Nakul Sosa, STUDY: XR KNEE RIGHT 4+ VIEWS; 01/23/2025 1:22 pm INDICATION: Signs/Symptoms:pain . ACCESSION NUMBER(S): [id number] ORDERING CLINICIAN: NAKUL SOSA FINDINGS: Right knee weightbearing four views. Mild medial joint space narrowing mild knee effusion no signs of fracture dislocation or other bony abnormality Signed by: Nakul Sosa 01/23/2025 1:45 PM Dictation workstation: [id number] [facility] Nakul Sosa MD - 01/23/2025 Interpreted By: Nakul Sosa, STUDY: XR KNEE RIGHT 4+ VIEWS; 01/23/2025 1:22 pm INDICATION: Signs/Symptoms:pain . ACCESSION NUMBER(S): [id number] ORDERING CLINICIAN: NAKUL SOSA FINDINGS: Right knee weightbearing four views. Mild medial joint space narrowing mild knee effusion no signs of fracture dislocation or other bony abnormality Signed by: Nakul Sosa 01/23/2025 1:45 PM Dictation workstation: [id number] [facility] Work Phone: [facility] Work Phone: Radiology Study observation (narrative) [facility] Work Phone: No Panel Informationon 05-23 Radiology Study observation (narrative) [facility] Work Phone: XR KNEE LEFT 3 VIEWSon 05-23 XR KNEE LEFT 3 VIEWS Interpreted By: Nakul Sosa, STUDY: XR KNEE LEFT 3 VIEWS; 05/23/2024 2:30 pm INDICATION: Signs/Symptoms:PAIN . ACCESSION NUMBER(S): [id number] ORDERING CLINICIAN: NAKUL SOSA FINDINGS: Left knee weightbearing four views. Status post cemented total knee replacement there is shadowing along the tibial component with slight subsidence along the medial aspect. No gross malalignment no signs of fracture dislocation or other bony abnormality Signed by: Nakul Sosa 05/23/2024 4:42 PM Dictation workstation: [id number] [facility] Comment on above: Order Comment: XR kn ee left 3 views weightbearing XR KNEE RIGHT 4+ VIEWSon XR KNEE RIGHT 4+ VIEWS Interpreted By: Naukl Sosa, STUDY: XR KNEE RIGHT 4+ VIEWS; 05/23/2024 2:30 pm INDICATION: Signs/Symptoms:pain . ACCESSION NUMBER(S): [id number] ORDERING CLINICIAN: NAKUL SOSA FINDINGS: Right knee weightbearing four views. Mild medial joint space narrowing moderate knee effusion no signs of fracture dislocation or other bony abnormality Signed by: Nakul Sosa 05/23/2024 4:41 PM Dictation workstation: [id number] [facility] XR Knee - left 3 Viewson Interpreted By: Nakul Sosa, STUDY: XR KNEE LEFT 3 VIEWS; 05/23/2024 2:30 pm INDICATION: Signs/Symptoms:PAIN . ACCESSION NUMBER(S): [id number] ORDERING CLINICIAN: NAKUL SOSA FINDINGS: Left knee weightbearing four views. Status post cemented total knee replacement there is shadowing along the tibial component with slight subsidence along the medial aspect. No gross malalignment no signs of fracture dislocation or other bony abnormality Signed by: Nakul Sosa 05/23/2024 4:42 PM Dictation workstation: [id number] [facility] Nakul Sosa MD - 05/23/2024 Interpreted By: Nakul Sosa, STUDY: XR KNEE LEFT 3 VIEWS; 05/23/2024 2:30 pm INDICATION: Signs/Symptoms:PAIN . ACCESSION NUMBER(S): [id number] ORDERING CLINICIAN: NAKUL SOSA FINDINGS: Left knee weightbearing four views. Status post cemented total knee replacement there is shadowing along the tibial component with slight subsidence along the medial aspect. No gross malalignment no signs of fracture dislocation or other bony abnormality Signed by: Nakul Sosa 05/23/2024 4:42 PM Dictation workstation: [id number] [facility] Work Phone: XR Knee - left 3 ViewsOrdere d By: Nakul Sosa on 05-23-2024 [facility] Work Phone: XR Knee - right 4 Viewson Interpreted By: Nakul Sosa, STUDY: XR KNEE RIGHT 4+ VIEWS; 05/23/2024 2:30 pm INDICATION: Signs/Symptoms:pain . ACCESSION NUMBER(S): [id number] ORDERING CLINICIAN: NAKUL SOSA FINDINGS: Right knee weightbearing four views. Mild medial joint space narrowing moderate knee effusion no signs of fracture dislocation or other bony abnormality Signed by: Nakul Sosa 05/23/2024 4:41 PM Dictation workstation: [id number] [facility] Nakul Sosa MD - 05/23/2024 Interpreted By: Nakul Sosa, STUDY: XR KNEE RIGHT 4+ VIEWS; 05/23/2024 2:30 pm INDICATION: Signs/Symptoms:pain . ACCESSION NUMBER(S): [id number] ORDERING CLINICIAN: NAKUL SOSA FINDINGS: Right knee weightbearing four views. Mild medial joint space narrowing moderate knee effusion no signs of fracture dislocation or other bony abnormality Signed by: Nakul Sosa 05/23/2024 4:41 PM Dictation workstation: [id number] [facility] Work Phone: [facility] Work Phone: Follow-Upon 08-19-2023 Follow-Up [id number] Porter Maravilla 1985 [facility] Provider Department Center 08/19/2023 Belen-JURGEN BRAMBILA [facility]THO [facility] Family History Family history unknown: Yes Level of Service:53406 [place] OFFICE/OUTPATIENT ESTABLISHED LOW MDM 20 MIN Reason for Visit and Comments: Pain [136] - L TKA needs revision , L TKA done 1 year ago, c/o l knee ana m and gives out Normal [facility] Office Visiton 08-16-2023 Follow-up visit [id number] Porter Maravilla 1985 M [facility] Provider Department Center 08/16/2023 DAMARIS R[facility]TER [facility] Family History Family history unknown: Yes Level of Service:65353 [place] OFFICE/OUTPATIENT ESTABLISHED MOD MDM 30-39 MIN () Reason for Visit and Comments: Pain [136] Normal [facility] CNOVon 06-28-2023 CNOV Office Visit (NPRC21) ---- PORTER MARAVILLA ([id number]) 1985 M Date Time Provider Department 06/28/23 3:30 PM FUAD PIERCE NPRC21 During your visit today, we recorded the following information about you: Pulse Blood pressure Weight Height 92/minute 126/86 111.1 kg 1.905 m Fuad Pierce PA-C 06/28/2023 10:11 PM Signed [facility] [place] June 28, 2023 Porter Maravilla is a 37 year old partnered male, not working, only volunteering, who lives with significant other and son (12 yoa) in [place], [place]. He was referred by Shea Plasencia [address] [place] [address]. Consultation requested by Luis Angel for an [...] Hx of left total knee replacement at [facility] by dr Smyth May 2022 - due [...] n/a CHF: denies Uncontrolled HTN: denies Recent [place]: denies Arrythmias: denies Afib: denies Hyperthyroid: denies Aortic Stenosis: denies Liver Failure: denies Increased ICP: denies Average pain over the last 7 days: 8-10/10 Previous pain treatments: physical therapy, medications, TENS, [...] Drug use: (more content not included)... Normal [facility] CNPNon 04-30-2023 CNPN Telephone (ORTHMN) ---- PORTER MARAVILLA ([id number]) 1985 M Date Time Provider Department 04/30/23 TORIBIO HAMMOND ORTH[facility] During your visit today, we recorded [...] Fully Assessed Reason for Visit: Patient Question [2548] Cmt: Pain Prescriptions as of 05/03/2023 - [...] Encounter Status:Closed by [facility]D [facility] MELANIA Tele[facility] (SPMNMN) ---- PORTER MARAVILLA ([id number]) 1985 M Date Time Provider Department 04/29/23 KELLE GORDON [facility] During your visit today, we recorded the following information about you: Sarah Canela RN 04/29/2023 11:55 AM Signed Received: Today Kelle Gordon DO Lynch, Megan, APRN.BLOCK TRADER; Sarah Canela, RN Thank you for sending. [...] to counselor. Had a lot going on. Sorry missed the appointment just a lot. He does want to schedule another VV. He is seeing counselor tomorrow. What is a good date for you? You have an EST on 05/31 at 440 can I change that to VV? That is the next open slot. I have put a temporary hold on that date for now. Sarah Canela, DOMINIQUE 04/30/2023 7:47 AM Addendum Spoke to patient gave him date of 05/31 at 440 for VV. I did let patient know per Dr. Gordon since it is at end of day that she may be delayed, but will see him then. He verbalized understanding. Hi, Please schedule the following appointment. Patient: Porter Maravilla Provider:Dr. Gordon Date: 05/31/2023 Time: 440 [facility] schedule Visit Type: Virtual (visualized on screen) Established Visit Follow up Imaging needed prior to schedule: No Patient is aware: Yes Thank you! Sarah Canela, RN Could you please add him to [...] Encounter Status:Closed by SARAH CANELA on 04/30/23 [facility] Progress Noteson 04-28-2023 Agricultural Mechanic Authentication Interface Message Text EMERGENCY TRIAGE, TREAT AND TRANSPORT (ET3) DOCUMENTATION OF TELEHEALTH VISIT Date / Time: 04/28/2023 / Name: Porter Maravilla : 1985 SSN: (Not on file) EMS Agency: [facility] [] Verbal consent obtained [x] Implied consent - patient with potential emergency medical condition requiring assessment of capacity to refuse treatment and/or transport VITAL SIGNS: see flowsheet documentation Reason for Telehealth Visit: No chief complaint on file. suicidal thoughts History of Present Illness: He was speaking with his psych counselor at [facility] and said he wants to Additional pertinent [...] Completed by: Salvador Harris MD Normal [employer] 04-26-2023 CNOV Office Visit (ORTHMN) ---- PORTER MARAVILLA ([id number]) 1985 M Date Time Provider Department 04/26/23 [...] status post left total knee replacement on [facility] by Dr. Jelena Smyth May 2022. Patient claims since the surgery the knee has been very painful ambulates with a valgus thrust and with every step it is painful. He is also status post back fusion done in 2019. He has been evaluated by pain management. He was worked up extensively in the [place] area had labs done back x-rays CT [...] personally reviewed (more content not included)... Normal [facility] Francine 03-22-2023 CNPN Telephone (PAINMN) ---- PORTER MARAVILLA ([id number]) 1985 M Date Time Provider Department 03/22/23 DESTINEY GARCIA During your visit today, we recorded the following information about you: Cecily Rivera 03/22/2023 4:09 PM Signed Demographic page, TENS [...] Encounter Status:Closed by CECILY RIVERA on 03/22/23 Normal [facility] CNOVon 03-18-2023 CNOV Office Visit (PAINMN) ---- PORTER MARAVILLA ([id number]) 1985 M Date Time Provider Department 03/18/23 3:40 PM [...] Destiney Garcia MD 03/22/2023 10:58 AM Signed [facility] Pain Management Department Office Visit Porter Maravilla is referred by NATALIIA Ward (spine). Unaccompanied Room: 20 Chief Complaint: both knees L>>R HISTORY OF PRESENT ILLNESS Mr. Porter Maravilla presents to [facility] for the evaluation of L>R knee pain s/p LTKR 06/09/22 pain. S/p genicular nerve blocks left by Trey Garrido MD on 02/11/23 from which he had [...] told to get all his records from [facility] CT scan on a disc along with [...] Date A (more content not included)... [facility] Telephone (ORTHMN) ---- PORTER MARAVILLA ([id number]) 1985 M Date Time Provider Department 03/15/23 TORIBIO HAMMOND During your visit today, we [...] Fully Assessed Reason for Visit: Patient Question [1477] Results [95] Cmt: labs Prescriptions as of [...] Status:Closed by TORIBIO HAMMOND on 03/15/23 Normal [facility] C-REACTIVE PROTEIN (CRP)on 0 03-05-2023 CRP [Mass/Vol] <0.9 mg/dL [facility] CBC W Auto Differential pane l (Bld)on 03-05-2023 Basophils (Bld) [#/Vol] 0.05 10*3/uL Normal <0.11 [facility] Comment on above: Order Comment: Speci men Type: BLOOD SPECIMEN Ordering Facility: [facility] Address: [address] [place] [address] Performed By: #### 5 7021-8, 4537-7 #### [facility] CLIA [id number] [address] [place] [address] [place] Basophils/100 WBC (Bld) 0.8 % Normal [facility] Comment on above: Order Comment: Speci men Type: BLOOD SPECIMEN Ordering Facility: [facility] Address: [address] Performed By: #### 5 7021-8, 4536-7 #### [facility] CLIA [id number] [address] [place] [address] [place] Differential cell count method Nom (Bld) Auto Normal [facility] Comment on above: Order Comment: Speci men Type: BLOOD SPECIMEN Ordering Facility: [facility] Address: [address] Performed By: #### 5 7021-8, 4536-7 #### [facility] CLIA [id number] [address] [place] [address] [place] Eosinophils (Bld) [#/Vol] 0.23 10*3/uL Normal <0.46 [facility] Comment on above: Order Comment: Speci men Type: BLOOD SPECIMEN Ordering Facility: [facility] Address: [address] Performed By: #### 5 7021-8, 7 #### [facility] CLIA [id number] [address] [place] [address] [place] Eosinophils/100 WBC (Bld) 3.8 % Normal [facility] Comment on above: Order Comment: Speci men Type: BLOOD SPECIMEN Ordering Facility: [facility] Address: [address] [place], [place] [address] Performed By: #### 5 7021-8, 7 #### [facility] CLIA [id number] [address] [place] [address] [place] Erythrocyte distribution width (RBC) [Ratio] 13.6 % Normal 11.5-15.0 [facility] Comment on above: Order Comment: Speci men Type: BLOOD SPECIMEN Ordering Facility: [facility] Address: [address] Performed By: #### 5 7021-8, 4536-7 #### [facility] CLIA [id number] [address] [place] [address] [place] Hematocrit (Bld) [Volume fraction] 41.1 % Normal 39.0-51.0 [facility] Comment on above: Order Comment: Speci men Type: BLOOD SPECIMEN Ordering Facility: [facility] Address: [address] [place] [address] Performed By: #### 5 7021-8, 4537-7 #### [facility] CLIA [id number] [address] [place] [address] [place] Hemoglobin (Bld) [Mass/Vol] 13.6 g/dL Normal 13.0-17.0 [facility] Comment on above: Order Comment: Speci men Type: BLOOD SPECIMEN Ordering Facility: [facility] Address: [address] [place] [address] Performed By: #### 5 7021-8, 4537-7 #### [facility] CLIA [id number] [address] [place] [address] [place] Immature granulocytes (Bld) [#/Vol] 10*3/uL Normal <0.10 [facility] Comment on above: Order Comment: Speci men Type: BLOOD SPECIMEN Ordering Facility: [facility] Address: [address] [place] [address] Performed By: #### 5 7021-8, 4536-7 #### [facility] CLIA [id number] [address] [place] [address] [place] Immature granulocytes/100 WBC (Bld) 0.2 % Normal [facility] Comment on above: Order Comment: Speci men Type: BLOOD SPECIMEN Ordering Facility: [facility] Address: [address] [place], [place] [address] Performed By: #### 5 7021-8, 4537-7 #### [facility] CLIA [id number] [address] [place] [address] [place] Lymphocytes (Bld) [#/Vol] 3.05 10*3/uL Normal 1.00-4.00 [facility] Comment on above: Order Comment: Speci men Type: BLOOD SPECIMEN Ordering Facility: [facility] Address: [address] [place] [address] Performed By: #### 5 7021-8, 4537-7 #### [facility] CLIA [id number] [address] [place] [address] [facility] Lymphocytes/100 WBC (Bld) 50.4 % Normal [facility] Comment on above: Order Comment: Speci men Type: BLOOD SPECIMEN Ordering Facility: [facility] Address: [address] [place] [address] Performed By: #### 5 7021-8, 4537-7 #### [facility] CLIA [id number] [address] [place] [address] [place] MCH (RBC) [Entitic mass] 28.2 pg Normal 26.0-34.0 [facility] Comment on above: Order Comment: Speci men Type: BLOOD SPECIMEN Ordering Facility: [facility] Address: [address] [place], [place] [address] Performed By: #### 5 7021-8, 4537-7 #### [facility] CLIA [id number] [address] [place] [address] [place] MCHC (RBC) [Mass/Vol] 33.1 g/dL Normal 30.5-36.0 [facility] Comment on above: Order Comment: Speci men Type: BLOOD SPECIMEN Ordering Facility: [facility] Address: [address] [place], [place] [address] Performed By: #### 5 7021-8, 4537-7 #### [facility] CLIA [id number] [address] [place] [address] [place] MCV (RBC) [Entitic vol] 85.1 fL Normal 80.0-100.0 [facility] Comment on above: Order Comment: Speci men Type: BLOOD SPECIMEN Ordering Facility: [facility] Address: [address] Performed By: #### 5 7021-8, 4536-7 #### [facility] CLIA [id number] [address] [place] [address] [place] Monocytes (Bld) [#/Vol] 0.54 10*3/uL Normal <0.87 [facility] Comment on above: Order Comment: Speci men Type: BLOOD SPECIMEN Ordering Facility: [facility] Address: [address] Performed By: #### 5 7021-8, 4536-7 #### [facility] CLIA [id number] [address] [place] [address] [place] Monocytes/100 WBC (Bld) 8.9 % Normal [facility] Comment on above: Order Comment: Speci men Type: BLOOD SPECIMEN Ordering Facility: [facility] Address: [address] [place], [place] [address] Performed By: #### 5 7021-8, 7 #### [facility] CLIA [id number] [address] [place] [address] [place] Neutrophils (Bld) [#/Vol] 2.17 10*3/uL Normal 1.45-7.50 [facility] Comment on above: Order Comment: Speci men Type: BLOOD SPECIMEN Ordering Facility: [facility] Address: [address] Performed By: #### 5 7021-8, 4536-7 #### [facility] CLIA [id number] [address] [place] [address] [place] Neutrophils/100 WBC (Bld) 35.9 % Normal [facility] Comment on above: Order Comment: Speci men Type: BLOOD SPECIMEN Ordering Facility: [facility] Address: [address] Performed By: #### 5 7021-8, 4537-7 #### [facility] CLIA [id number] [address] [place] [address] [place] Nucleated RBC (Bld) [#/Vol] 10*3/uL Normal <0.01 [facility] Comment on above: Order Comment: Speci men Type: BLOOD SPECIMEN Ordering Facility: [facility] Address: [address] Performed By: #### 5 7021-8, 4536-7 #### [facility] CLIA [id number] [address] [place] [address] [place] Nucleated RBC/100 WBC (Bld) [Ratio] 0.0 /100 WBC Normal [facility] Comment on above: Order Comment: Speci men Type: BLOOD SPECIMEN Ordering Facility: [facility] Address: [address] Performed By: #### 5 7021-8, 4536-7 #### [facility] CLIA [id number] [address] [place] [address] [place] Platelet mean volume (Bld) [Entitic vol] 9.7 fL Normal 9.0-12.7 [facility] Comment on above: Order Comment: Speci men Type: BLOOD SPECIMEN Ordering Facility: [facility] Address: [address] [place] [address] Performed By: #### 5 7021-8, 4536-7 #### [facility] CLIA [id number] [address] [place] [address] [place] Platelets (Bld) [#/Vol] 205 10*3/uL Normal 150-400 [facility] Comment on above: Order Comment: Speci men Type: BLOOD SPECIMEN Ordering Facility: [facility] Address: [address] [place] [address] Performed By: #### 5 7021-8, 4537-7 #### [facility] CLIA [id number] [address] [place] [address] [place] RBC (Bld) [#/Vol] 4.83 10*6/uL Normal 4.20-6.00 [facility] Comment on above: Order Comment: Speci men Type: BLOOD SPECIMEN Ordering Facility: [facility] Address: [address] [place] [address] Performed By: #### 5 7021-8, 4537-7 #### [facility] CLIA [id number] [address] [place] [address] [place] WBC (Bld) [#/Vol] 6.05 10*3/uL Normal 3.70-11.00 [facility] Comment on above: Order Comment: Speci men Type: BLOOD SPECIMEN Ordering Facility: [facility] Address: [address] [place] [address] Performed By: #### 5 7021-8, 4537-7 #### [facility] CLIA [id number] [address] [place] [address] [place] Basophils (Bld) [#/Vol] 0.05 10*3/uL <0.11 k/uL [facility] Basophils/100 WBC (Bld) 0.8 % [facility] Differential cell count method Nom (Bld) Auto [facility] Eosinophils (Bld) [#/Vol] 0.23 10*3/uL <0.46 k/uL [facility] Eosinophils/100 WBC (Bld) 3.8 % [facility] Erythrocyte distribution width (RBC) [Ratio] 13.6 % 11.5 - 15.0 % [facility] Hematocrit (Bld) [Volume fraction] 41.1 % 39.0 - 51.0 % [facility] Hemoglobin (Bld) [Mass/Vol] 13.6 g/dL 13.0 - 17.0 g/dL [facility] Immature granulocytes (Bld) [#/Vol] <0.10 k/uL [facility] Immature granulocytes/100 WBC (Bld) 0.2 % [facility] Lymphocytes (Bld) [#/Vol] 3.05 10*3/uL 1.00 - 4.00 k/uL [facility] Lymphocytes/100 WBC (Bld) 50.4 % [facility] MCH (RBC) [Entitic mass] 28.2 pg 26.0 - 34.0 pg [facility] MCHC (RBC) [Mass/Vol] 33.1 g/dL 30.5 - 36.0 g/dL [facility] MCV (RBC) [Entitic vol] 85.1 fL 80.0 - 100.0 fL [facility] Monocytes (Bld) [#/Vol] 0.54 10*3/uL <0.87 k/uL [facility] Monocytes/100 WBC (Bld) 8.9 % [facility] Neutrophils (Bld) [#/Vol] 2.17 10*3/uL 1.45 - 7.50 k/uL [facility] Neutrophils/100 WBC (Bld) 35.9 % [facility] Nucleated RBC (Bld) [#/Vol] <0.01 k/uL [facility] Nucleated RBC/100 WBC (Bld) [Ratio] 0.0 /100 WBC [facility] Platelet mean volume (Bld) [Entitic vol] 9.7 fL 9.0 - 12.7 fL [facility] Platelets (Bld) [#/Vol] 205 10*3/uL 150 - 400 k/uL [facility] RBC (Bld) [#/Vol] 4.83 10*6/uL 4.20 - 6.0 0 m/uL [facility] WBC (Bld) [#/Vol] 6.05 10*3/uL 3.70 - 11. 00 k/uL [facility] CNOVon 03-05-2023 CNOV Office Visit (ORTHMN) ---- PORTER MARAVILLA ([id number]) 1985 M Date Time Provider Department 03/05/23 [...] status post left total knee replacement on [facility] by Dr. Jelena Smyth May 2022. Patient claims since the surgery the knee has been very painful ambulates with a valgus thrust and with every step it is painful. He is also status post back fusion done in 2019 and has not followed with recovered from that also. He was worked up extensively in the [place] area had labs done back x-rays CT [...] total knee replacement surgery; Date: [facility] at [facility]. Review of Systems Constitutional: Negative. HENT: [...] past me (more content not included)... Normal [facility] CRP SerPl-mCncon 03-05-2023 CRP [Mass/Vol] mg/L Normal <0.9 [facility] Comment on above: Order Comment: Speci men Type: BLOOD SPECIMEN Ordering Facility: [facility] Address: [place] [id number] Performed By: #### 5 7021-8, 4537-7 #### [facility] CLIA [id number] [address] [place] [address] [address] [facility] ESR Westergren method (Bld) [Velocity]on 03-05-2023 ESR (Bld) [Velocity] 2 mm/h 0 - 15 mm/hr Cl [facility] ESR (Bld) [Velocity] 2 mm/h Normal 0-15 [facility] Comment on above: Order Comment: Speci men Type: BLOOD SPECIMEN Ordering Facility: [facility] Address: [place] [address] Performed By: #### 5 7021-8, 4537-7 #### [facility] CLIA [id number] [address] [place] [address] [facility] CNOVon 02-05-2023 CNOV Office Visit (SPNMMN) ---- PORTER MARAVILLA ([id number]) 1985 M Date Time Provider Department 02/05/23 3:40 PM KELLE GORDON [facility] During your visit today, we recorded [...] HPI/Conservative Treatment Section (NSAIDs, PT, HEP and/or Evp Chief Exploration Officer within last 3-6 mo (more content not included)... Normal [facility] CNCOon 01-29-2023 CNCO Letter Text Normal [facility] CT LSPINE WO CONon CT LSPINE WO CON EXAMINATION: CT LSPINE [...] by: DAMARIS BARRIGA Date: 2023-01-24 16:34 Normal [facility] CNOVon 01-13-2023 OV Office Visit (SPNSMN) ---- PORTER MARAVILLA ([id number]) 1985 M Date Time Provider Department 01/13/23 3:00 PM SHEA PLASENCIA ERLINDAMN During your visit today, we recorded the following information about you: Pulse Respiration Blood pressure Weight 84/minute 16/minute 125/84 112.1 kg Height 1.918 m Shea Plasencia APRN.BLOCK TRADER 01/14/2023 2:09 PM Signed SPINE SURGERY ESTABLISHED [...] medial men (more content not included)... Normal [facility] EMG(NEURO/NI)on 01-13-2023 [facility] XR KNEE 4V AP/PA/LAT/MERCH B ILon 01-13-2023 XR KNEE 4V AP/PA/LAT/MERCH BALAJI * * *Final Report* * * DATE OF EXAM: Jan 13 2023 4:19PM IR[facility] [id number] - XR KNEE 4V AP/PA/LAT/MERCH BALAJI [...] SMALL PATELLAR OSTEOPHYTE OTHERWISE NORMAL RIGHT KNEE. Traffic Safety Administrator: PSCB Transcribe Date/Time: Jan 13 2023 4:47P Dictated by : MILLY GILL MD This examination was interpreted and the report reviewed and electronically signed by: MILLY GILL MD on Jan 13 2023 4:48PM EST [id number] Normal [facility] XR KNEE GENERAL 4V AP BOTH/P A BOTH/LAT/MERC BILATERALon 01-13-2023 [facility] CNOVon 01-05-2023 CNOV Office Visit (SPNSMN) ---- PORTER MARAVILLA ([id number]) 1985 M Date Time Provider Department 01/05/23 3:00 PM SHEA PLASENCIA SPNSMN During your visit today, we recorded the following information about you: Pulse Respiration Blood pressure Weight 97/minute 18/minute 109/63 111.1 kg Height 1.918 m Shea Plasencia APRN.CNP 01/06/2023 10:40 AM Signed SPINE SURGERY OUTPATIENT [...] paralysis, sei (more content not included)... Normal [facility] Basophils Auto (Bld) [#/Vol] Ordered By: Jelena Gregorio on 10-22-2022 Basophils (Bld) [#/Vol] 0.1 10*3/uL 0.0-0.[address] [facility] Basophils/100 WBC Auto (Bld) Ordered By: Jelena Gregorio on 10-22-2022 Basophils/100 WBC (Bld) 1.2 % . [facility] C reactive protein [Mass/vol ume] in Serum or PlasmaOrdered By: Jelena Gregorio on 10-22-2022 CRP [Mass/Vol] 0.7 mg/dL 0.0-1.[address] [facility] Eosinophils Auto (Bld) [#/Vo l]Ordered By: Jelena Gregorio on 10-22-2022 Eosinophils (Bld) [#/Vol] 0.3 10*3/uL 0.0-0.[address] [facility] Eosinophils/100 WBC Auto (Bl d)Ordered By: Jelena Gregorio on 10-22-2022 Eosinophils/100 WBC (Bld) 6.8 % . [facility] Erythrocyte distribution wid th Auto (RBC) [Ratio]Ordered By: Jelena Gregorio on 10-22-2022 Erythrocyte distribution width (RBC) [Ratio] 15.9 % 12.0-14.[address] [facility] Erythrocyte sedimentation ra te by Photometric methodOrdered By: Jelena Gregorio on 10-22-2022 ESR Photometric method (Bld) [Velocity] 12 mm/hr 0-[address] [facility] Hematocrit Auto (Bld) [Volum e fraction]Ordered By: Jelena Gregorio on 10-22-2022 Hematocrit (Bld) [Volume fraction] 42.2 % 38.8-50.[address] [facility] Hemoglobin [Mass/volume] in BloodOrdered By: Jelena Gregorio on 10-22-2022 Hemoglobin (Bld) [Mass/Vol] 13.7 g/dL 13.0-17.[address] [facility] Leukocytes [#/volume] correc mejia for nucleated erythrocytes in Blood by Automated counOrdered By: Jelena Gregorio on 10-22-2022 WBC corrected for nucl RBC Auto (Bld) [#/Vol] 4.8 10*3/uL 4.1-10.[address] [facility] Lymphocytes Auto (Bld) [#/Vo l]Ordered By: Jelena Gregorio on 10-22-2022 Lymphocytes (Bld) [#/Vol] 2.4 10*3/uL 1.00-4.[address] [facility] Lymphocytes/100 WBC Auto (Bl d)Ordered By: Jelena Gregorio on 10-22-2022 Lymphocytes/100 WBC (Bld) 50.6 % . [facility] MCH Auto (RBC) [Entitic mass ]Ordered By: Jelena Gregorio on 10-22-2022 MCH (RBC) [Entitic mass] 27.4 pg 27.5-35.[address] [facility] MCHC Auto (RBC) [Mass/Vol]Or dered By: Jelena Gregorio on 10-22-2022 MCHC (RBC) [Mass/Vol] 32.6 g/dL 32.5-35.6 [facility] MCV Auto (RBC) [Entitic vol] Ordered By: Jelena Gregorio on 10-22-2022 MCV (RBC) [Entitic vol] 83.9 fL 83.5-[address] [facility] Monocytes Auto (Bld) [#/Vol] Ordered By: Jelena Gregorio on 10-22-2022 Monocytes (Bld) [#/Vol] 0.4 10*3/uL 0.0-0.[address] [facility] Monocytes/100 WBC Auto (Bld) Ordered By: Jelena Gregorio on 10-22-2022 Monocytes/100 WBC (Bld) 7.9 % . [facility] Neutrophils Auto (Bld) [#/Vo l]Ordered By: Jelena Gregorio on 10-22-2022 Neutrophils (Bld) [#/Vol] 1.6 10*3/uL 1.8-7.[address] [facility] Neutrophils/100 WBC Auto (Bl d)Ordered By: Jelena Gregorio on 10-22-2022 Neutrophils/100 WBC (Bld) 33.5 % . [facility] Nucleated erythrocytes [Pres ence] in Blood by Automated countOrdered By: Jelena Gregorio on 10-22-2022 Nucleated RBC Auto Ql (Bld) 0.2 /100{WBC} 0-0.[address] [facility] Platelet mean volume Auto (B ld) [Entitic vol]Ordered By: Jelena Gregorio on 10-22-2022 Platelet mean volume (Bld) [Entitic vol] 8.4 fL 6.6-10.[address] [facility] Platelets Auto (Bld) [#/Vol] Ordered By: Jelena Gregorio on 10-22-2022 Platelets (Bld) [#/Vol] 213 10*3/uL 150-[address] [facility] RBC Auto (Bld) [#/Vol]Ordere d By: Jelena Gregorio on 10-22-2022 RBC (Bld) [#/Vol] 5.02 10*6/uL 3.90-5.60 [facility] WBC Auto (Bld) [#/Vol]Ordere d By: Jelena Gregorio on 10-22-2022 WBC (Bld) [#/Vol] 4.8 10*3/uL 4.1-10.5 [facility] Urine culture routineOrdered By: Jelena Gregorio on 05-21-2022 Bacteria identified Cx Nom (U) [address] [facility] Automated erythrocytes count in urine sediment (number/area)Ordered By: Jelena Gregorio on 05-19-2022 RBC Auto (Urine sed) [#/Area] None seen [HPF] 0-[address] [facility] Automated leukocytes count i n urine sediment (number/area)Ordered By: Jelena Gregorio on 05-19-2022 WBC Auto (Urine sed) [#/Area] 5-9 [HPF] 0-[address] [facility] Bilirubin Test strip Ql (U)O rdered By: Jelena Gregorio on 05-19-2022 Bilirubin Ql (U) Negative Negative [facility] Color Auto (U)Ordered By: Tho Gregorio on 05-19-2022 Color (U) Yellow Yellow [facility] Ketones Auto test strip (U) [Mass/Vol]Ordered By: Jelena Gregorio on 05-19-2022 Ketones (U) [Mass/Vol] Negative Negative Fi [facility] - UrinalysisOrder ed By: Jelena Gregorio on 05-19-2022 Hyaline casts LM Ql (Urine sed) None seen [LPF] 0-[address] [facility] Nitrite Test strip Ql (U)Ord ered By: Jelena Gregorio on 05-19-2022 Nitrite Ql (U) Negative Negative [facility] Protein Auto test strip (U) [Mass/Vol]Ordered By: Jelena Gregorio on 05-19-2022 Protein (U) [Mass/Vol] Negative [facility] Specific gravity Auto test s trip (U) [Rel density]Ordered By: Jelena Gregorio on 05-19-2022 Specific gravity (U) [Rel density] 1.016 1.001-1.[address] [facility] Squamous epithelial cells de tection in urine sediment by light microscopyOrdered By: Jelena Gregorio on 05-19-2022 Epithelial cells.squamous LM Ql (Urine sed) None seen [HPF] 0-[address] [facility] Urine bacteria detection by automated methodOrdered By: Jelena Gregorio on 05-19-2022 Bacteria Auto Ql (U) None seen None Seen [facility] Urine clarity by refractomet ry automatedOrdered By: Jelena Gregorio on 05-19-2022 Clarity Refractometry automated (U) Clear Clear [facility] Urine glucose measurement by automated test strip (mass/volume)Ordered By: Jelena Gregorio on 05-19-2022 Glucose Auto test strip (U) [Mass/Vol] Normal mg/dL Normal [facility] Urine hemoglobin detection b y automated test stripOrdered By: Jelena Gregorio on 05-19-2022 Hemoglobin Auto test strip Ql (U) Negative Negative [facility] Urine leukocyte esterase det ection by automated test stripOrdered By: Jelena Gregorio on 05-19-2022 Leukocyte esterase Auto test strip Ql (U) 4+ Negative [facility] Urobilinogen Auto test strip (U) [Mass/Vol]Ordered By: Jelena Gregorio on 05-19-2022 Urobilinogen (U) [Mass/Vol] Normal mg/dL Normal [facility] pH Auto test strip (U)Ordere d By: Jelena Gregorio on 05-19-2022 pH (U) 6.0 [pH] 5.0-9.[address] [facility] LITHIUMon 03-04-2022 Ceex Haci (Eskalith(R)), Serum <0.1 Critically low 0.5-1.2 [facility] Comment on above: Result Comment: Plas ma concentration of 0.5 - 0.8 mmol/L are advised for long-term use; concentrations of up to 1.2 mmol/L may be necessary during acute treatment. Verified by repeat analysis Detection Limit = 0.1 <0.1 indicates None Detected Performed By: #### L ITHIUM #### [facility] [address] [place] [address] Dr. Ksenia Rudolph LIPID PROFILEon 03-02-2022 CHOL-HDL RATIO NORM SEE BELOW Normal [facility] Comment on above: Result Comment: 3.3 - 4.4 LOW RISK 4.4 - 7.1 AVERAGE RISK 7.1 - 11.0 MODERATE RISK >11.0 HIGH RISK Performed By: #### C MP, LIPID #### [facility] [address] [place] [address] Dr. Ksenia Rudolph Cholesterol [Mass/Vol] 164 mg/dL Normal <=200 [facility] Comment on above: Performed By: #### C MP, LIPID #### [facility] [address] [place] [address] Dr. Ksenia Rudolph Cholesterol in HDL [Mass/Vol] 47 mg/dL Normal 40-60 [facility] Comment on above: Performed By: #### C MP, LIPID #### [facility] [address] [place] [address] Dr. Ksenia Rudolph Cholesterol in LDL [Mass/Vol] 105.2 mg/dL Normal [facility] Comment on above: Performed By: #### C MP, LIPID #### [facility] [address] [place] [address] Dr. Ksenia Rudolph Cholesterol.total/Chol esterol in HDL [Mass ratio] 3.5 {ratio} Normal [facility] Comment on above: Performed By: #### C MP, LIPID #### [facility] [address] [place] [address] Dr. Ksenia Rudolph HDL NORMAL > or = 60 mg/dl - LOW CARDIOVASCULAR RISK <40 mg/dl - HIGH CARDIOVASCULAR RISK Normal [facility] Comment on above: Performed By: #### C MP, LIPID #### [facility] [address] [place] [address] Dr. Ksenia Rudolph LDL CALC NORMAL SEE BELOW Normal [facility] Comment on above: Result Comment: <100 mg/dl OPTIMAL 100 - 129 mg/dl NEAR OR ABOVE OPTIMAL 130 - 159 mg/dl BORDERLINE HIGH 160 - 189 mg/dl HIGH >190 mg/dl VERY HIGH Performed By: #### C MP, LIPID #### [facility] [address] [address] [address] Ksenia Rudolph Triglyceride [Mass/Vol] 59 mg/dL Normal <=150 [facility] Comment on above: Performed By: #### C MP, LIPID #### [facility] [address] [place] [address] [address] Ksenia Rudolph VLDL CALC 11.8 mg/dL Normal [facility] Comment on above: Performed By: #### C MP, LIPID #### [facility] [address] [address] [address] Ksenia Rudolph PROF 14(COMP METB)on 022 Albumin [Mass/Vol] 4.3 g/dL Normal 3.4-5.0 [facility] Comment on above: Performed By: #### C MP, LIPID #### [facility] [address] [place] [address] [address] Ksenia Rudolph Albumin/Globulin [Mass ratio] 1.6 {ratio} Normal [facility] Comment on above: Performed By: #### C MP, LIPID #### [facility] [address] [address] [address] Ksenia Rudolph ALP [Catalytic activity/Vol] 162 U/L Critically high 46-116 [facility] Comment on above: Performed By: #### C MP, LIPID #### [facility] [address] [address] [address] Ksenia Rudolph ALT [Catalytic activity/Vol] 45 U/L Normal 16-63 [facility] Comment on above: Performed By: #### C MP, LIPID #### [facility] [address] [address] [address] Ksenia Rudolph Anion gap [Moles/Vol] 11.2 mmol/L Normal [facility] Comment on above: Performed By: #### C MP, LIPID #### [facility] [address] [address] [address] Ksenia Rudolph AST [Catalytic activity/Vol] 39 U/L Critically high 15-37 [facility] Comment on above: Performed By: #### C MP, LIPID #### [facility] [address] [address] [address] Ksenia Rudolph Bilirubin [Mass/Vol] 0.4 mg/dL Normal 0.2-1.0 [facility] Comment on above: Performed By: #### C MP, LIPID #### [facility] [address] [address] [address] Ksenia Rudolph Calcium [Mass/Vol] 9.1 mg/dL Normal 8.5-10.1 [facility] Comment on above: Performed By: #### C MP, LIPID #### [facility] [address] [address] [address] Ksenia Rudolph Chloride [Moles/Vol] 103 mmol/L Normal 98-107 [facility] Comment on above: Performed By: #### C MP, LIPID #### [facility] [address] [address] [address] Ksenia Rudolph CO2 [Moles/Vol] 28.9 mmol/L Normal 21.0-32.0 [facility] Comment on above: Performed By: #### C MP, LIPID #### [facility] [address] [address] [address] Ksenia Rudolph Creatinine [Mass/Vol] 0.99 mg/dL Normal 0.70-1.30 [facility] Comment on above: Performed By: #### C MP, LIPID #### [facility] [address] [address] [address] Ksenia Rudolph EGFR-AF LIBERIAN >60 Normal >=60 [facility] Comment on above: Performed By: #### C MP, LIPID #### [facility] [address] [address] [address] Ksenia Rudolph EGFR-NON AF LIBERIAN >60 Normal >=60 [facility] Comment on above: Performed By: #### C MP, LIPID #### [facility] [address] [address] [address] Ksenia Rudolph Globulin (S) [Mass/Vol] 2.7 g/dL Normal [facility] Comment on above: Performed By: #### C MP, LIPID #### [facility] [address] [address] [address] Ksenia Rudolph Glucose [Mass/Vol] 93 mg/dL Normal 74-106 [facility] Comment on above: Performed By: #### C MP, LIPID #### [facility] [address] [address] [address] Ksenia Rudolph Potassium [Moles/Vol] 4.1 mmol/L Normal 3.5-5.1 [facility] Comment on above: Performed By: #### C MP, LIPID #### [facility] [address] [place] [address] Dr. Ksenia Rudolph Protein [Mass/Vol] 7.0 g/dL Normal 6.4-8.2 [facility] Comment on above: Performed By: #### C MP, LIPID #### [facility] [address] [address] [address] Ksenia Rudolph Sodium [Moles/Vol] 139 mmol/L Normal 136-145 [facility] Comment on above: Performed By: #### C MP, LIPID #### [facility] [address] [place] [address] Dr. Ksenia Rudolph Urea nitrogen [Mass/Vol] 8.0 mg/dL Normal 7.0-18.0 [facility] Comment on above: Performed By: #### C MP, LIPID #### [facility] [address] [place] [address] Dr. Ksenia Rudolph Urea nitrogen/Creatinine [Mass ratio] 8.1 mg/mg Normal [facility] Comment on above: Performed By: #### C MP, LIPID #### [facility] [address] [address] [address] Ksenia Rudloph XR KNEE LT 4V or >on 022 XR KNEE LT 4V or > IMAGES REVIEWED: XR KNEE LT 4V or > COMPARISON: 02/12/2021, 04/17/2020. CLINICAL INDICATION: Pain FINDINGS/IMPRESSION : 1. Apparent moderate joint effusion. 2. No radiographic evidence of acute osseous abnormality of the left knee. 3. Mild degenerative change. Electronically authenticated by: KATIE RODRIGUEZ Date: 2022-03-02 16:41 Normal [facility] KNEE LEFT 4VWSon 09-01-2021 KNEE LEFT 4VWS [facility] Department of Radiology [address] [place] [id number] Patient Name: PORTER MARAVILLA : 1985 Sex: M Age: Race: Black Pt. Location: [facility] Patient Status: Ordered Date: 09/01/2021 10:20:00 AM [...] evaluation. Electronically signed: Garth Marrufo. Transcribed by: [email or web address], User Resident: Electronically Signed by: GARTH MARRUFO @ 09/01/2021 10:41 AM Normal [facility] Comment on above: Order Comment: Weigh t bearing Vital Signs Date Time Vital Sign Value Performing Clinician Facility 06-28-2023 15:12-0400 Body height 190.5 cm Chaska Kari PA-C Work Phone: [facility] 06-28-2023 15:12-0400 Body weight 111.13 kg Chaska Kari PA-C Work Phone: [facility] 06-28-2023 15:12-0400 Diastolic blood pressure 86 mm[Hg] Chaska Kari PA-C Work Phone: [facility] 06-28-2023 15:12-0400 Heart rate 92 /min Chaska Kari PA-C Work Phone: [facility] 06-28-2023 15:12-0400 SaO2% (BldA) [Mass fraction] 99 % Chaska Kari PA-C Work Phone: [facility] 06-28-2023 15:12-0400 Systolic blood pressure 126 mm[Hg] Fuad Kari PA-C Work Phone: [facility] 06-04-2023 09:30-0400 Body height 191.77 cm Trey Garrido Other [facility] Other 06-04-2023 09:30-0400 Body mass index (BMI) [Ratio] 29.62 kg/m2 Trey Garrido Other [facility] Other 06-04-2023 09:30-0400 Body weight 108.95 kg Trey Garrido Other [facility] Other 06-04-2023 09:30-0400 Diastolic blood pressure 84 mm[Hg] Trey Garrido Other [facility] Other 06-04-2023 09:30-0400 SaO2% (BldA) [Mass fraction] 99 % Trey Garirdo Other [facility] Other 06-04-2023 09:30-0400 Systolic blood pressure 128 mm[Hg] Trey Garrido Other [facility] Other 04-26-2023 12:19-0400 Body height 190.5 cm Viviana Macedo MD Work Phone: [facility] 04-26-2023 12:19-0400 Body weight 108.95 kg Viviana Macedo MD Work Phone: [facility] 03-18-2023 15:28-0400 Body height 190.5 cm Destiney Garcia MD Work Phone: [facility] 03-18-2023 15:28-0400 Body temperature 98.1 [degF] Destiney Garcia MD Work Phone: [facility] 03-18-2023 15:28-0400 Body weight 108.86 kg Destiney Garcia MD Work Phone: [facility] 03-18-2023 15:28-0400 Diastolic blood pressure 85 mm[Hg] Destiney Garcia MD Work Phone: [facility] 03-18-2023 15:28-0400 Heart rate 87 /min Destiney Garcia MD Work Phone: [facility] 03-18-2023 15:28-0400 Respiratory rate 16 /min Destiney Garcia MD Work Phone: [facility] 03-18-2023 15:28-0400 SaO2% (BldA) [Mass fraction] 99 % Destiney Garcia MD Work Phone: [facility] 03-18-2023 15:28-0400 Systolic blood pressure 146 mm[Hg] Destiney Garcia MD Work Phone: [facility] 02-11-2023 16:00-0400 Body height 191.77 cm Trey Garrido Other [facility] Other 02-11-2023 16:00-0400 Body mass index (BMI) [Ratio] 29.97 kg/m2 Trey Garrido Other [facility] Other 02-11-2023 16:00-0400 Body weight 110.22 kg Trey Garrido Other [facility] Other 02-11-2023 16:00-0400 Diastolic blood pressure 80 mm[Hg] Trey Garrido Other [facility] Other 02-11-2023 16:00-0400 Systolic blood pressure 126 mm[Hg] Trey Garrido Other [facility] Other 01-13-2023 14:51-0400 Body height 191.8 cm Shea Plasencia APRN.CNP Work Phone: [facility] 01-13-2023 14:51-0400 Body weight 112.13 kg Shea Plasencia APRN.YVON Work Phone: [facility] 01-13-2023 14:51-0400 Diastolic blood pressure 84 mm[Hg] Shea Plasencia APRNGRACIE Work Phone: [facility] 01-13-2023 14:51-0400 Heart rate 84 /min Shea Plasencia APRN.BLOCK TRADER Work Phone: [facility] 01-13-2023 14:51-0400 Respiratory rate 16 /min Shea Plasencia APRN.YVON Work Phone: [facility] 01-13-2023 14:51-0400 SaO2% (BldA) [Mass fraction] 95 % Sheajuan Plasencia BUSINESS INTEGRATION ANALYST.BLOCK TRADER Work Phone: [facility] 01-13-2023 14:51-0400 Systolic blood pressure 125 mm[Hg] Sheajuan Plasencia BUSINESS INTEGRATION ANALYST.BLOCK TRADER Work Phone: [facility] 12-10-2022 15:45-0400 Body height 191.77 cm Trey Adriana Other [facility] Other 12-10-2022 15:45-0400 Body mass index (BMI) [Ratio] 29.99 kg/m2 Treymayra Garrido Other [facility] Other 12-10-2022 15:45-0400 Body weight 110.32 kg Treymayra Garrido Other [facility] Other 12-10-2022 15:45-0400 Diastolic blood pressure 84 mm[Hg] Trey Adriana Other [facility] Other 12-10-2022 15:45-0400 SaO2% (BldA) [Mass fraction] 99 % Treymayra Garrido Other [facility] Other 12-10-2022 15:45-0400 Systolic blood pressure 128 mm[Hg] Trey Adriana Other [facility] Other 11-18-2022 13:45-0500 Body height 191.77 cm Treymayra Garrido Other [facility] Other 11-18-2022 13:45-0500 Body mass index (BMI) [Ratio] 30.88 kg/m2 Treymayra Garrido Other [facility] Other 11-18-2022 13:45-0500 Body weight 113.58 kg Treymayra Garrido Other [facility] Other 11-18-2022 13:45-0500 Diastolic blood pressure 82 mm[Hg] Trey Garrido Other [facility] Other 11-18-2022 13:45-0500 SaO2% (BldA) [Mass fraction] 99 % Trey Garrido Other [facility] Other 11-18-2022 13:45-0500 Systolic blood pressure 118 mm[Hg] Trey Garrido Other [facility] Other 10-22-2022 12:00-0500 Body height 191.77 cm Yolande Beck Other [facility] Other 10-22-2022 12:00-0500 Body mass index (BMI) [Ratio] 29.6 kg/m2 Yolande Beck Other [facility] Other 10-22-2022 12:00-0500 Body weight 108.86 kg Yolande Beck Other [facility] Other 10-22-2022 12:00-0500 Diastolic blood pressure 90 mm[Hg] Yolande Beck Other [facility] Other 10-22-2022 12:00-0500 Systolic blood pressure 132 mm[Hg] Yolande Beck Other [facility] Other 03-25-2022 12:10-0400 Diastolic blood pressure 80 mm[Hg] PHYSICIAN NO [facility] 03-25-2022 12:10-0400 Heart rate 72 /min PHYSICIAN NO [facility] 03-25-2022 12:10-0400 Respiratory rate 18 /min PHYSICIAN NO [facility] 03-25-2022 12:10-0400 SaO2% (BldA) [Mass fraction] 98 % PHYSICIAN NO [facility] 03-25-2022 12:10-0400 Systolic blood pressure 130 mm[Hg] PHYSICIAN NO [facility] 03-25-2022 11:32-0400 Inhaled oxygen flow rate 3 L/min PHYSICIAN NO [facility] 03-25-2022 10:34-0400 Body height 190.5 cm PHYSICIAN NO [facility] 03-25-2022 10:34-0400 Body mass index (BMI) [Ratio] 29.7 kg/m2 PHYSICIAN NO [facility] 03-25-2022 10:34-0400 Body weight 107.95 kg PHYSICIAN NO [facility] 03-04-2022 13:32-0400 Diastolic blood pressure 80 mm[Hg] PHYSICIAN NO [facility] 03-04-2022 13:32-0400 Heart rate 71 /min PHYSICIAN NO [facility] 03-04-2022 13:32-0400 Respiratory rate 16 /min PHYSICIAN NO [facility] 03-04-2022 13:32-0400 SaO2% (BldA) [Mass fraction] 97 % PHYSICIAN NO [facility] 03-04-2022 13:32-0400 Systolic blood pressure 132 mm[Hg] PHYSICIAN NO [facility] 03-04-2022 11:53-0400 Inhaled oxygen flow rate 3 L/min PHYSICIAN NO [facility] 03-04-2022 11:00-0400 Body height 190.5 cm PHYSICIAN NO [facility] 03-04-2022 11:00-0400 Body mass index (BMI) [Ratio] 29.3 kg/m2 PHYSICIAN NO [facility] 03-04-2022 11:00-0400 Body weight 106.59 kg PHYSICIAN NO [facility] 02-16-2022 17:00-0400 Body height 191.77 cm Trey Garrido Other [facility] 02-16-2022 17:00-0400 Diastolic blood pressure 70 mm[Hg] Trey Garrido Other [facility] Other 02-16-2022 17:00-0400 SaO2% (BldA) [Mass fraction] 98 % Trey Garrido Other [facility] Other 02-16-2022 17:00-0400 Systolic blood pressure 110 mm[Hg] Trey Garrido Other [facility] Other 01-28-2022 11:15-0400 Body height 191.77 cm Dario Marroquin Other [facility] Other 01-28-2022 11:15-0400 Body mass index (BMI) [Ratio] 30.3 kg/m2 Dario Marroquin Other [facility] Other 01-28-2022 11:15-0400 Body weight 111.45 kg Dario Marroquin Other [facility] Other 11-26-2021 10:00-0400 Body height 191.77 cm Dario Marroquin Other [facility] Other 11-26-2021 10:00-0400 Body mass index (BMI) [Ratio] 30.83 kg/m2 Dario Marroquin Other [facility] Other 11-26-2021 10:00-0400 Body weight 113.4 kg Dario Marroquin Other [facility] Other 07-30-2021 10:30-0500 Body height 191.77 cm Dario Marroquin Other [facility] Other 07-30-2021 10:30-0500 Body mass index (BMI) [Ratio] 30.83 kg/m2 Dario Marroquin Other [facility] Other 07-30-2021 10:30-0500 Body weight 113.4 kg Dario Marroquin Other [facility] Other 07-30-2021 10:30-0500 Diastolic blood pressure 75 mm[Hg] Dario Marroquin Other [facility] Other 07-30-2021 10:30-0500 Systolic blood pressure 130 mm[Hg] Dario Marroquin Other [facility] Other NEGATED: Highlighted row BMI (Body Mass [...] Date Encounter Type Care Provider Facility Start: 01-24-2025 Evaluation and management of inpatient [facility] Start: 01-23-2025 End: 01-23-2025 Subsequent hospital visit by physician Joanne Lucero101 X-Ray 3 [facility] Comment on above: Left knee pain, unsp ecified chronicity Right knee pain, uns pecified chronicity Start: 01-23-2025 End: 01-23-2025 Office outpatient visit 40 minutes Nakul Sosa MD Work Phone: [facility] Comment on above: Primary osteoarthrit is of right knee (Primary Dx); Left knee pain, unspecified chronicity; Right knee pain, unspecified chronicity Start: 01-23-2025 End: 01-23-2025 ambulatory NAKUL Lipscomb [facility] Start: 01-18-2025 ambulatory Jomar Jean acility:[facility] Start: 01-15-2025 ambulatory Facility:[facility] Start: 01-12-2025 ambulatory Facility:Jimena Ferrari Andrea Start: 11-16-2024 End: 11-16-2024 Patient encounter procedure Leoncio Rosenberg PhD Work Phone: [facility] [place] Comment on above: Memory loss (Primary Dx); ADHD (attention deficit hyperactivity disorder), inattentive type (CMS/HCC); Word finding difficulty; CLEMENCIA (obstructive sleep apnea); Arachnoid cyst; Severe episode of recurrent major depressive disorder, without psychotic features (HCC) (CMS/HCC); Severe anxiety Start: 11-16-2024 End: 11-16-2024 ambulatory LEONCIO ROSENBERG Not Available Start: 10-30-2024 End: 10-30-2024 Patient encounter procedure Leoncio Rosenberg PhD Work Phone: [facility] [place] Comment on above: Memory loss (Primary Dx); ADHD (attention deficit hyperactivity disorder), inattentive type (CMS/HCC); Word finding difficulty; CLEMENCIA (obstructive sleep apnea); Arachnoid cyst; Depression, unspecified depression type (CMS/HCC); Anxiety Start: 10-30-2024 End: 10-30-2024 ambulatory LEONCIO ROSENBERG Not Available Start: 10-30-2024 End: 10-30-2024 Bamboo flowsheet Leoncio Rosenberg PhD Work Phone: [facility] [place] Start: 10-30-2024 End: 10-30-2024 Ezekiel brice Leoncio Rosenberg PhD Work Phone: [facility] [place] Start: 08-01-2024 End: 08-01-2024 ambulatory [facility] Start: 08-01-2024 End: 08-01-2024 Office outpatient visit 25 minutes Nakul Sosa MD Work Phone: [facility] Comment on above: Left knee pain, unsp ecified chronicity (Primary Dx) Start: 05-23-2024 End: 05-23-2024 Subsequent hospital visit by physician Joanne Lucero101 X-Ray 3 [facility] Comment on above: Left knee pain, unsp ecified chronicity; Right knee pain, unspecified chronicity Start: 05-23-2024 End: 05-23-2024 ambulatory [facility] Start: 05-23-2024 End: 05-23-2024 Office outpatient new 45 minutes Nakul Sosa MD Work Phone: [facility] Comment on above: Left knee pain, unsp ecified chronicity (Primary Dx); Right knee pain, unspecified chronicity Start: 04-28-2024 End: 04-28-2024 Office outpatient visit 25 minutes Jr. Jelena Gregorio DO Work Phone: [facility] Comment on above: Acute pain of left k nee (Primary Dx); History of left knee replacement; Primary osteoarthritis of right knee Start: 04-28-2024 End: 04-28-2024 ambulatory JELENA DILLARD Not Available Start: 02-25-2024 End: 02-25-2024 ambulatory JELENA DILLARD Not Available Start: 08-19-2023 ambulatory JURGEN BRAMBILA [facility] Start: 08-16-2023 End: 08-17-2023 ambulatory DAMARIS PEREZ [facility] Start: 08-02-2023 End: 08-02-2023 [facility] Pooja Cordon MD Work Phone: Psychiatry Pain Recovery Comment on above: Chronic pain syndrom e (Primary Dx); Pain disorder associated with psychological factors and medical condition; RESHMA (generalized anxiety disorder); Chronic use of benzodiazepine for therapeutic purpose; MDD (major depressive disorder), recurrent episode, moderate (HCC) Start: 07-12-2023 End: 07-12-2023 ambulatory PHYSICIAN [facility] Work Phone: Start: 07-12-2023 End: 07-12-2023 Patient encounter procedure PHYSICIAN [facility]-Nuc Med [facility] Work Phone: Start: 07-02-2023 End: 07-02-2023 ambulatory Nelda Sheriff APRN.BLOCK TRADER Work Phone: Telemedicine Comment on above: Treatment not availa ble (Primary Dx) Help Start: 07-02-2023 End: 07-02-2023 ambulatory АНДРЕЙ GOODE Facility:[facility] Start: 06-28-2023 End: 06-28-2023 ambulatory FUAD PIERCE Facility:[facility] Start: 06-28-2023 End: 06-28-2023 Patient encounter procedure Fuad Pierce PA-C Work Phone: Neurology Pain Comment on above: History of left knee replacement (Primary Dx); Chronic pain of left knee; Bipolar 1 disorder (HCC) Start: 06-11-2023 End: 06-11-2023 ambulatory SHEA PLASENCIA Facility:[facility] Start: 06-10-2023 ambulatory Shea AGGARWAL RN.BLOCK TRADER Work Phone: [facility] Start: 06-10-2023 Patient encounter procedure Shea Plasencia BUSINESS INTEGRATION ANALYST.BLOCK TRADER Work Phone: [facility] Comment on above: Appointment Start: 06-09-2023 End: 06-09-2023 ambulatory KELLE GORDON Facility:[facility] Start: 06-04-2023 End: 06-04-2023 ambulatory Trey Garrido Other [facility] Other Start: 06-04-2023 Office outpatient vi sit 25 minutes Trey Garrido [facility] [place] Start: 06-01-2023 ambulatory Kelle Alonzo Cox O Work Phone: [facility] Start: 06-01-2023 Patient encounter procedure Kelle Alonzo DO Work Phone: [facility] Comment on above: Appointment Start: 05-29-2023 ambulatory Shea AGGARWAL RN.BLOCK TRADER Work Phone: [facility] Comment on above: Call Start: 05-03-2023 End: 05-03-2023 ambulatory Trey Garrido Other [facility] Other Start: 05-03-2023 Telephone encounter Trey Garrido [facility] Start: 04-30-2023 Telephone encounter Toribio mills PA-C Work Phone: Orthopaedics Comment on above: Patient Question (Pa in/) Start: 04-28-2023 End: 06-12-2023 ambulatory Shea Plasencia APRN.BLOCK TRADER Work Phone: [facility] Comment on above: Left leg pain (Prima ry Dx); Chronic pain of left knee; Spasm of muscle; Gait instability; Suicidal ideation Start: 04-28-2023 End: 04-28-2023 Telemedicine consultation with patient Shea Plasencia APRN.CNP Work Phone: [facility] Start: 04-26-2023 End: 04-26-2023 ambulatory VIVIANA MACEDO Facility:[facility] Start: 04-26-2023 End: 04-26-2023 Patient encounter procedure Viviana Macedo MD Work Phone: Orthopaedics Comment on above: Status post total le ft knee replacement (Primary Dx) Start: 03-24-2023 Refill Shea AGGARWAL RN.BLOCK TRADER Work Phone: [facility] Comment on above: Refill Request Start: 03-22-2023 ambulatory Shea AGGARWAL RN.CNP Work Phone: [facility] Comment on above: Advice Start: 03-22-2023 Follow-up encounter Shea carrasco APRN.CNP Work Phone: [facility] Comment on above: Follow up Start: 03-22-2023 Telephone encounter Destiney glass MD Work Phone: Pain Management Comment on above: Nurse Triage Call (T ENS unit information) Start: 03-18-2023 End: 03-18-2023 ambulatory DESTINEY GARCIA Facility:[facility] Start: 03-18-2023 End: 03-18-2023 Patient encounter procedure [...] Start: 03-05-2023 End: 03-06-2023 ambulatory TORIBIO HAMMOND Facility:[facility] Start: 03-05-2023 End: 03-05-2023 ambulatory SHEA PLASENCIA Facility:[facility] Start: 03-05-2023 End: 03-05-2023 Patient encounter procedure Toribio Hammond PA-C Work Phone: Orthopaedics Comment on above: Pain due to total le ft knee replacement, initial encounter ([facility]) (Primary Dx); Effusion of left knee; Tear of medial meniscus of right knee, current, unspecified tear type, initial encounter Start: 02-23-2023 ambulatory Shea AGGARWAL RN.BLOCK TRADER Work Phone: [facility] Comment on above: Ortho Start: 02-22-2023 End: 02-22-2023 ambulatory АНДРЕЙ GOODE Facility:[facility] Start: 02-21-2023 Refill Shea AGGARWAL RN.BLOCK TRADER Work Phone: [facility] Comment on above: Refill Request Start: 02-16-2023 ambulatory Kelle Templeton Work Phone: [facility] Comment on above: Pain increasing Start: 02-11-2023 End: 02-11-2023 ambulatory Trey Garrido Other [facility] Other Start: 02-11-2023 Office outpatient vi sit 15 minutes Trey Garrido [facility] Start: 02-05-2023 End: 02-06-2023 ambulatory АНДРЕЙ GOODE Facility:[facility] Start: 01-23-2023 End: 01-24-[address] DOCTOR OLVERA Facility: Start: 01-13-2023 End: 01-13-2023 ambulatory SHEA PLASENCIA Facility:[facility] Start: 01-13-2023 End: 01-14-2023 ambulatory SHEA PLASENCIA Facility:[facility] Start: 01-13-2023 End: 01-14-2023 ambulatory SHEA PLASENCIA Facility:[facility] Start: 01-13-2023 End: 01-13-2023 ambulatory Emg 1000) Work Phone: Neurology Comment on above: EMG Start: 01-13-2023 End: 01-13-2023 Patient encounter procedure Emg 4 Neur Main (Max Weight: 1000) Work Phone: [facility] Comment on above: Spondylosis with mye lopathy, thoracic region (Primary Dx); Gait instability; Radiculopathy of lumbar region; Effusion of left knee; Tear of medial meniscus of right knee, current, unspecified tear type, initial encounter Start: 01-05-2023 End: 01-06-2023 ambulatory SHEA PLASENCIA Facility:[facility] Start: 12-25-2022 Chart abstracting Unknown (His torical) BUSINESS INTEGRATION ANALYST Neurology Start: 12-10-2022 End: 12-10-2022 ambulatory Trey Garrido Other [facility] Other Start: 12-10-2022 Office outpatient vi sit 25 minutes Trey Garrido [facility] Start: 11-19-2022 End: 11-19-2022 ambulatory Trey Garrido Other [facility] Other Start: 11-19-2022 Telephone encounter Trey Garrido [facility] Start: 11-18-2022 End: 11-18-2022 ambulatory Trey Garrido Other [facility] Other Start: 11-18-2022 Office outpatient vi sit 25 minutes Trey Garrido [facility] Start: 10-22-2022 Office outpatient vi sit 15 minutes Yolande WILLOUGHBY [facility]surgery Start: 10-22-2022 End: 10-22-2022 ambulatory PHYSICIAN NO [facility] Work Phone: Start: 10-22-2022 End: 10-22-2022 Patient encounter procedure PHYSICIAN NO [facility]-XRay [facility] [place] Work Phone: Start: 05-28-2022 End: 05-28-2022 Patient encounter procedure PHYSICIAN NO [facility]-XRay [address] Start: 05-19-2022 End: 05-19-2022 Patient encounter procedure PHYSICIAN NO [facility]-Vdd-Ltpobjne Testing Start: 03-25-2022 (Procedure) Short Trey Garrido [facility] Start: 03-25-2022 End: 03-25-2022 ambulatory Trey Garrido Other [facility] Other Start: 03-25-2022 End: 03-25-2022 Admission to same day surgery center PHYSICIAN NO [facility] Start: 03-11-2022 End: 03-11-2022 ambulatory Trey Garrido Other [facility] Other Start: 03-11-2022 Office outpatient vi sit 15 minutes Trey Garrido [facility] Start: 03-04-2022 (Procedure) Short Trey Garrido [facility] Start: 03-04-2022 End: 03-04-2022 ambulatory Trey Garrido Other [facility] Other Start: 03-04-2022 End: 03-04-2022 Admission to same day surgery center PHYSICIAN LULA [facility] Start: 03-02-2022 End: 03-03-[address] DOCTOR OLVERA Facility:[facility] Start: 02-16-2022 End: 02-16-2022 ambulatory Trey Garrido Other [facility] Other Start: 02-16-2022 Office outpatient vi sit 25 minutes Treymayra Garrido [facility] Start: 01-28-2022 End: 01-28-2022 ambulatory Dario Marroquin Other [facility] Other Start: 01-28-2022 Office outpatient vi sit 15 minutes Dario Marroquin [facility] [place] Start: 11-26-2021 End: 11-26-2021 ambulatory Dario Marroquin Other [facility] Other Start: 11-26-2021 Office outpatient vi sit 15 minutes Dario Marroquin [facility] [place] Start: 08-11-2021 End: 08-11-2021 ambulatory Dario Marroquin Other [facility] Other Start: 08-11-2021 Telephone encounter Dario Marroquin [facility] Neurosurgery Start: 07-30-2021 End: 07-30-2021 ambulatory Dario Marroquin Other [facility] Other Start: 07-30-2021 Office outpatient vi sit 15 minutes Dario Marroquin [facility] [place] Procedures Date Procedure Procedure Detail Performing Clinician Start: 01-23-2025 Arthrocentesis aspir&/inj major jt/bursa w/o us Nakul Sosa MD Work Phone: Start: 01-23-2025 End: 01-23-2025 Radiologic examination knee 3 views Nakul Sosa MD Work Phone: Start: 05-23-2024 Radiologic examination knee 3 views Nakul Sosa MD Work Phone: Start: 07-12-2023 Radionuclide three-phase bone study PHYSICIAN NO FAMILY Start: 03-22-2023 History of operative procedure on knee History of left knee replacement Destiney Garcia MD Work Phone: Start: 01-13-2023 Nerve conduction studies 5-6 studies Shea Plasencia BUSINESS INTEGRATION ANALYST.BLOCK TRADER Work Phone: Start: 10-22-2022 X-ray of lumbar [...] knee replacement Fuad Pierce PA-C Work Phone: History of operative procedure on knee History of left knee replacement Jr. Jelena Gregorio DO Work Phone: Hyperlipidemia screening Mike Marro[facility] Other Urine culture PHYSICIAN NO F AMILY Plan of Treatment Date Care Activity Detail Author Start: 2037 Zoster Vaccines (1 o f 2) Zoster Vaccines (1 of 2) [facility] Start: 05-14-2025 Influenza vaccination Influenz a Vaccine (Season Ended) [facility] Start: 03-09-2025 End: 03-09-2025 Patient encounter procedure 03/09/2025 1:15 PM EDT Office Visit [facility] [address] [place] [address] [place] [phone] Moe Cuellar, PA-C [address] [facility], [address] [place] [id number] [facility] Start: 02-22-2025 End: 02-22-2025 Admission to same day surgery center 02/22/2025 1:20 PM EDT - 02/22/2025 3:50 PM EDT Surgery [facility] OR [address] [place] [address], [place] [address] Nakul Sosa MD [address] [facility], [address] [place] [id number] REVISION, TOTAL ARTHROPLASTY, KNEE [32533 (CPT )] [facility] OR Comment on above: REVISION, TOTAL ARTH ROPLASTY, KNEE [20168 (CPT )] Start: 02-22-2025 End: 02-22-2025 Revj tot knee arthrp fem&entire tibial compone REVISION, TOTAL ARTHROPLASTY, KNEE Mechanical loosening of internal left knee prosthetic joint, initial encounter 02/22/2025 1:20 PM EDT Virtual [facility] [place] Start: 02-22-2025 Subsequent hospital visit by physician 02/22/2025 1:20 PM EDT Hospital Encounter [facility] [place] [address] [place] [address], [place] [address] Nakul Sosa MD [address] [facility], [address] [place] [id number] [facility] [place] Start: 02-16-2025 End: 02-16-2025 Patient encounter procedure 02/16/2025 1:30 PM EDT Office Visit [facility] [address] [place] [address] Moe Cuellar PAJamesC [address] [facility], [address] [place] [id number] [facility] Start: 02-09-2025 End: 02-09-2025 Admission to establishment 02/09/2025 11:30 AM EDT Pre-Admission Testing [facility] [address] [place] [address] [facility] Start: 11-28-2024 End: 11-28-2024 Patient encounter procedure 11/28/2024 9:00 AM EDT Office Visit [facility] [place] [address] [place] [phone] Leoncio Rosenberg, PhD [address] [place] [id number] [facility] [place] Start: 11-16-2024 End: 11-16-2024 Patient encounter procedure 11/16/2024 9:00 AM EST Office Visit ROBERTO He [facility] [phone] [facility] Start: 10-30-2024 End: 10-30-2024 Patient encounter procedure 10/30/2024 2:30 PM EST Office Visit ROBERTO He [facility] [phone] Leoncio Rosenberg, PhD [address] [place] [address] Arrived [facility] Comment on above: Arrived Start: 08-23-2024 End: 08-23-2024 Patient encounter procedure 08/23/2024 9:45 AM EST Office Visit [facility] [address] [place] [phone] Jr. Jelena Gregorio, DO [address] [place] [address] [facility] Start: 05-14-2024 COVID-19 Vaccine ( season) COVID-19 Vaccine ( season) [facility] Start: 05-14-2024 COVID-19 Vaccine ( season) COVID-19 Vaccine ( season) [facility] Start: 05-14-2024 Influenza vaccination Influenza Vacc ine (#1) [facility] Start: 05-14-2023 Influenza vaccination [facility] Start: 09-13-2022 DEPRESSION ASSESSMENT DEPRESSION ASS ESSMENT [facility] Start: 2022 Lipid 1996 panel - Serum or Plasma Lipid Screening [facility] Start: 2022 LIPID SCREEN LIPID SCREEN [facility] Start: 03-25-2022 [facility] Work Phone: Start: 03-04-2022 [facility] Work Phone: Start: 2009 DTaP/Tdap/Td Vaccine s (1 - Tdap) DTaP/Tdap/Td Vaccines (1 - Tdap) [facility] Start: 2006 Hepatitis B Vaccines (1 of 3 - 19+ 3-dose series) Hepatitis B Vaccines (1 of 3 - 19+ 3-dose series) [facility] Start: 2006 Urine microalbumin profile [facility] Start: 2005 HEPATITIS C SCREENING HEPATITIS C [facility] Start: 2005 Hepatitis C screening Hepatitis C [facility] Start: 2005 HIV SCREENING HIV SCREENING [facility] Start: 2000 Varicella vaccination Varicell a Vaccines (1 of 2 - 13+ 2-dose series) [facility] Start: 1988 MMR Vaccines (1 of 1 - Standard series) MMR Vaccines (1 of 1 - Standard series) [facility] Start: 01-16-1988 COVID-19 VACCINE (#1) COVID-19 VACCI NE (#1) [facility] Start: 1987 HEPATITIS B (1 of 3 - 3-dose series) HEPATITIS B (1 of 3 - 3-dose series) [facility] Start: 1987 Hepatitis B Vaccine (1 of 3 - 3-dose series) Hepatitis B Vaccine (1 of 3 - 3-dose series) [facility] Start: 1987 HIV screening HIV Screening [facility] Start: 1987 Lipid panel Lipid Panel [facility] Start: 1987 Yearly Adult Physical Yearly Adult P hysical [facility] Bacteria identified in Urine by Culture [facility] End: 02-12-2024 Mri spinal canal thoracic w/o contrast matrl MRI THORACIC SPINE WO IVCON Radiology Routine Radiculopathy of lumbar region Gait instability Spondylosis with myelopathy, thoracic region 1 Occurrences starting 01/13/2023 until 02/12/2024 [facility] Work Phone: Comment on above: 1 Occurrences starti ng 01/13/2023 until 02/12/2024 Patient Education Adriana Non Diagn ostic Block [facility] Work Phone: Patient referral [facility] Work Phone: [facility] Immunizations Immunization Date Immunization Notes Care Provider Fa bacilio 06-13-2019 influenza, injectabl e, quadrivalent, preservative free PHYSICIAN NO [facility] 06-13-2019 influenza virus vaccine, unspecified formulation Shea Plasencia BUSINESS INTEGRATION ANALYST.BLOCK TRADER Work Phone: [facility] Payers Date Payer Category Payer Self-pay 2021 Medicaid [id number] 2021 Medicaid (Managed Care) 1.2. [id number] 2021 Private Health Insurance [facility] MEDICAID [id number] 2021 Unknown [employer]GEL[employer] BLIND AND DISABLED [id number] 2021-Present [address] [place] [address] [id number] 1987 Unknown [id number] 2.16.840.1.834143.3.579.2. 593 1987 Unknown [id number] 2.16.840.1.514406.3.579.2. 593 1987 Unknown [id number] 2.16.840.1.213357.3.579.2. 593 1987 Unknown [id number] 2.16.840.1.346689.3.579.2. 732 1987 Unknown [id number] 2.16.840.1.955220.3.579.2. 1259 1987 Unknown [id number] 2.16.840.1.883730.3.579.2. 1259 1987 Unknown [id number] 2.16.840.1.156000.3.579.2. 1259 1987 Unknown [id number] 2.16.840.1.351771.3.579.2. 1259 1987 Unknown [id number] 2.16.840.1.107452.3.579.2. 1259 1987 Unknown [id number] 2.16.840.1.397017.3.579.2. 727 1987 Unknown [id number] 2.16.840.1.566474.3.579.2. 1246 1987 Unknown [id number] 2.16.840.1.579454.3.579.2. 1246 1987 Unknown [id number] 2.16.840.1.254685.3.579.2. 1246 1987 Unknown [id number] 2.16.840.1.266860.3.579.2. 1246 1987 Unknown [id number] 2.16.840.1.375017.3.579.2. 1246 1987 Unknown [id number] 2.16.840.1.017425.3.579.2. 1246 1987 Unknown [id number] 2.16.840.1.039042.3.579.2. 1246 1959 Medicaid [id number] 1959 Unknown [id number] 2.16.840.1.444640.19 Unknown [id number] 2.16.840.1.215725.3.579.2. 531 Social History Date Type Detail Facility Start: 02-05-2023 End: 04-28-2024 Sex Assigned At [facility] Start: 05-19-2022 End: 02-22-2023 Tobacco smoking status [facility] Ex-smoker (finding) [facility] Start: 1987 Sex Assigned At Male F [facility] Start: 06-05-2022 End: 06-05-2022 Tobacco smoking status [facility] Smoker (finding) [facility] History of tobacco use Cigarette Smoker [facility] Start: 07-17-2021 End: 01-05-2023 Tobacco use and exposure Smokeless tobacco non-user [facility] [facility] Start: 07-17-2021 End: 06-28-2023 Alcohol intake Ex-drinker (finding) [facility] Start: 1985 Sex Assigned At Not on file [facility] Start: 01-03-2023 End: 01-23-2025 Exposure to SARS-CoV-2 (event) Not sure [facility] Start: 02-05-2023 End: 04-28-2024 History of Social function [facility] Adult Depression Screening Assessment 6 [facility] Tobacco smoking stat [facility] Tobacco smoking consumption unknown [facility] Work Phone: Start: 04-28-2024 Alcoholic beverage intake Current drinker of alcohol (finding) [facility] Medical Equipment Procedure Code Equipment Code Equipment Origin al Text Equipment Identifier Dates Arthroplasty, knee, total, minimally invasive Orthopaedic cement, non-medicated [id number] FDA Start: 06-05-2022 Arthroplasty, knee, total, minimally invasive Orthopaedic cement, non-medicated ()[id number] FDA Start: 06-05-2022 Arthroplasty, knee, total, minimally invasive Orthopaedic bone screw, non-bioabsorbable, sterile ()[id number] FDA Start: 06-05-2022 Arthroplasty, knee, total, minimally invasive Tibial insert ()[id number] FDA Start: 06-05-2022 Arthroplasty, knee, total, minimally invasive Uncoated knee tibia prosthesis, metallic ()[id number] FDA Start: 06-05-2022 Arthroplasty, knee, total, minimally invasive Polyethylene patella prosthesis ()[id number] FDA Start: 06-05-2022 Arthroplasty, knee, total, minimally invasive Uncoated knee femur prosthesis ()[id number] FDA Start: 06-05-2022 Anterior lumbar interbody fusion (ALIF) XLIF MAS REDUCTION 1 LEVEL FDA Start: 10-08-2020 Anterior lumbar interbody fusion (ALIF) Bone-screw internal spinal fixation system, non-sterile ()[id number] FDA Start: 10-08-2020 Anterior lumbar interbody fusion (ALIF) Bone-screw internal spinal fixation system, non-sterile ()[id number] FDA Start: 10-08-2020 Anterior lumbar interbody fusion (ALIF) Bone-screw internal spinal fixation system, non-sterile ()[id number] FDA Start: 10-08-2020 Anterior lumbar interbody fusion (ALIF) Metallic spinal fusion cage, non-sterile ()[id number] FDA Start: 10-08-2020 Anterior lumbar interbody fusion (ALIF) Spinal fusion graft kit ()[id number] FDA Start: 10-08-2020 Anterior lumbar interbody fusion (ALIF) Bone matrix implant, human-derived ()[id number] FDA Start: 10-08-2020 Anterior lumbar interbody fusion (ALIF) Spinal bone screw, non-bioabsorbable ()[id number] FDA Start: 10-08-2020 Anterior lumbar interbody fusion (ALIF) Bone-screw internal spinal fixation system, non-sterile ()[id number] FDA Start: 10-08-2020 Anterior lumbar interbody fusion (ALIF) Bone-screw internal spinal fixation system, non-sterile ()[id number] FDA Start: 10-08-2020 Anterior lumbar interbody fusion (ALIF) XLIF MAS REDUCTION 1 LEVEL FDA Start: 10-08-2020 Anterior lumbar interbody fusion (ALIF) XLIF MAS REDUCTION 1 LEVEL FDA Start: 10-08-2020 Anterior lumbar interbody fusion (ALIF) XLIF MAS REDUCTION 1 LEVEL FDA Start: 10-08-2020 Goals Date Patient Goal Desired Activity /State Personal health goal Clinical Notes 07-30-2021 to 01-23-2025 Nakul Sosa MD - 01/23/2025 1:00 PM Soto Rosenberg, PhD - 11/16/2024 9:00 AM Shabana Rosenberg, PhD - 10/30/2024 2:30 PM Luz Sosa MD - 08/01/2024 1:30 PM EST Note Date & Type Note Facility 01-23-2025 History of Present illness Narrative Associated Order(s): Inj/Asp: Right knee Post-Procedure Diagnose(s): Right knee pain, unspecified chronicity Images from the original note were not included. Subjective Patient ID: Porter Chief Complaint: Chief Complaint Patient presents with Left Knee - Pain Xrays today Right Knee - Pain Xrays today History of present illness 39-year-old gentleman presented clinic today for evaluation right knee pain. He has a history of a left total knee replacement that is giving him issues. He was scheduled for a left total knee revision for February 22 but is in the need of postponement due to other procedures needing to be done for his partner. He states that his right knee continues to bother him. He has been diagnosed with a meniscal tear in the right knee on imaging that was done at [facility]. He came here for second opinion today. He continues to have pain and stiffness and swelling of the right knee. No mechanical symptoms were reported at this time. He has difficulty when walking with shoes on. Past medical , Surgical, Family and social history reviewed. Physical exam General: No acute distress and breathing comfortably. Patient is pleasant and cooperative with the examination. Extremity Right knee is neurovascular intact. The affected knee was examined and inspected and was tender to the touch along the medial aspect with catching locking and mechanical symptoms. The skin was intact without breakdown or open wound. There was a positive Gabriela exam seen without gross evidence of instability in the collateral ligaments or in the anterior or posterior planes. There was a negative Lockman's pivot shift and posterior drawer test with no foot drop numbness or tingling. Sensation and reflexes in the foot and ankle are preserved. There was an effusion. Range of motion showed good straight leg raise with flexion to at least 110 degrees and extension to 0 degrees. The patient had the ability to bear weight, but with discomfort. The patient's gait was antalgic secondary to the discomfort. Diagnostics Please see dictated x-ray report Imaging No results found. Cardiology, Vascular, and Other Imaging No other imaging results found for the past 7 days Procedure Inj/Asp: Right knee on 01/23/2025 1:51 PM Indications: pain and diagnostic evaluation Details: 22 G needle, anteromedial approach Medications: 4 mL lidocaine 10 mg/mL (1 %); 2 mL betamethasone acet,sod phos 6 mg/mL Outcome: tolerated well, no immediate complications Procedure, treatment alternatives, risks and benefits explained, specific risks discussed. Consent was given by the patient. Immediately prior to procedure a time out was called to verify the correct patient, procedure, equipment, administrative support clerk and site/side marked as required. Patient was prepped and draped in the usual sterile fashion. 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 At this time he will continue with weightbearing activity as tolerated. 2. Right knee cortisone injection performed today without complication. 3. He will call Sarah Beth to reschedule his left total knee revision. Follow-up with us if he needs anything in future. For complete plan and/or surgical details, please refer to Dr. Sosa's portion of the split/shared dictation. 4. All of the patient's questions were answered. Orders Placed This Encounter XR knee right 4+ views XR knee left 3 views This note was prepared using voice recognition software. The details of this note are correct and have been reviewed, and corrected to the best of my ability. Some grammatical areas may persist related to the [email or web address] software Moe Cuellar PA-C, [facility] In a [id number] encounter performed today, I Nakul Sosa MD performed a history and physical examination, discussed pertinent diagnostic studies if indicated, and discussed diagnosis and management strategies with both the patient and the midlevel provider. I reviewed the midlevel's note and agree with the documented findings and plan of care. Greater than 50% of the evaluation and treatment decision was performed by the physician myself during today's visit. 39-year-old male here for both knees he is scheduled for revision left total knee replacement but he is got some other personal issues he needs to deal with so he needs to postpone his revision knee surgery he knows he needs to get it done but his other issue is his right knee he has not had an MRI of his right knee and been told he has torn cartilage in his right knee he is having stiffness and pain in his right knee difficulty bearing weight difficulty standing for prolonged period time no new injury. On examination right knee has crepitus with range of motion tenderness medial joint space without instability. Left knee has no signs of infection moderate instability to varus and valgus brisk cap refill compartments are soft. X-rays are obtained today see my dictated x-ray report. Impression #1 is loose left total knee replacement, #2 right knee pain with knee arthritis and degenerative meniscal tearing. Plan is right knee cortisone injection which is performed with his consent without complication. Patient understands the cortisone may provide temporary relief how much it helps her how long it lasts is unpredictable. Cortisone can be repeated after 3 months if symptoms return. He is luis manuel reschedule his left revision knee replacement surgery he is given a card to call to reschedule. Patient continues to have severe impairment of bodily function related to his bilateral knee pain we discussed nonsurgical and surgical options This note was prepared using voice recognition software. The details of this note are correct and have been reviewed, and corrected to the best of my ability. Some grammatical areas may persist related to the [email or web address] software Nakul Sosa MD Senior Attending Physician [facility] documented in this encounter [facility] Work Phone: 11-16-2024 History of Present illness Narrative Images from the original note were not included. Neuropsychology Leoncio Rosenberg, PhD NEUROPSYCHOLOGICAL EVALUATION Porter Maravilla is a 39 y.o. male referred for neuropsychological evaluation to assist with facilitating and informing medical differential diagnosis and clinical decision-making. The following information was obtained during an interview with the patient, as well as review of available records. PRESENTING PROBLEM: Concerns for baseline ADHD. History of struggling since around the 7th grade with comprehension, attention/concentration, distractibility, difficulty having information sink in, jumping between tasks, difficulty completing tasks, word finding difficulty, fluctuating memory, as well as poor planning, organization, and time management. This is becoming increasingly frustrating and impacting relationships. Otherwise, remains independent in ADLs, household responsibilities, finances, and medication. No driving, has never had a license. This is due to difficulty focusing. Fluctuating sleep quality with snoring and frequent jumps/startles throughout the night. Pain complaints include left knee. Neurological history includes arachnoid cyst that is being monitored. Relevant family history includes son with similar attention issues. Psychiatric history notable for depression, anxiety, and OCD-like tendencies. Meets with both therapy and psychiatry. No history of alcohol/substance abuse, stopped drinking altogether 3 years ago. Vapes nicotine. [place] language [place]. Completed 11 years of formal education. 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 Resides with significant other of 16 years along with their son. MEDICAL HISTORY/MEDICATION: MEDICATIONS: Current Outpatient Medications Medication Instructions DULoxetine (CYMBALTA) 60 mg, Oral, Daily LaMICtal 100 MG tablet 1 tablet Orally three times daily methocarbamol (ROBAXIN) 750 mg, Oral, 4 times daily PRN nabumetone (RELAFEN) 500 mg, Oral, 2 times daily SEROquel 400 MG tablet 2 tablets traZODone (DESYREL) 100 mg, Oral, Nightly PRN ASSESSMENT: Presented to appointment on time, alert, and Ox3. Rapport easily established. Good eye contact. Socially appropriate during conversation and testing. Hearing adequate for current purposes. Ambulated independently. Purpose for current evaluation explained and patient agreed to participate. Aside from some variable attention at times, overall appeared to put forth good effort. Vision/Visuoconstruction: Binocular near-point visual acuity 20/25. Visual mcdonald full to confrontation. Nonverbal abstract reasoning 82nd %ile. Copy of a complex geometric design >16th %ile. Motor/Speed of Processing: Right-handed. Waste Examiner strength <1st %ile with right-hand, 1st %ile with left. Speeded graphomotor transcoding 14th %ile. Attention/Working Memory: Auditory attention/working memory 50th %ile (5 digits forward, 5 digits backward, 6 digits during sequencing). Speeded visual scanning/attention <1st %ile. Speeded visual divided attention 3rd %ile. Speech/Language: Expressive speech fluent and absent of paraphasic errors. Comprehension adequate for current purposes. Single-word reading 19th %ile. Generative naming to phonemic cues 69th %ile, 12th %ile to semantic cues. Confrontation naming 46th %ile. Verbal abstract reasoning 42nd %ile. Learning and Memory: Learning of a word list 2nd %ile (4-5-6-7-8), delayed recall 1st %ile. Recognition discriminability 2nd %ile. Forced-choice 16/16. Immediate recall for prose passages 3rd %ile, delayed 1st %ile. Recognition 3-9th %ile. Immediate recall for a variety of geometric figures 66th %ile, delayed 12th %ile. Recognition >75th %ile. Executive Functioning: Novel problem-solving and cognitive flexibility 2-5th %ile, 1/6 categories completed in 64 sorts. Responding absent of significant perseveration. Poor task conceptualization. Failed to maintain set x1. Emotional Functioning: Severe depression and anxiety. Endorsed occasional thoughts of self-harm that he would not act on. Highly elevated ADHD symptom report. FINDINGS AND RECOMMENDATIONS: CONCLUSIONS: 1. Estimated low average pre-morbid intellectual functioning. 2. Preserved visual acuity without signs of visual field cut or neglect. 3. Severely deficient bilateral gross motor function. 4. Severe depression and anxiety. 5. Highly elevated ADHD symptom report. 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 These struggles are exacerbated by severe depression and anxiety, along with poor sleep quality with possible CLEMENCIA. RECOMMENDATIONS: Results and recommendations forwarded to treating physician for review during their upcoming appointment. Patient encouraged to contact this office with any additional questions. More aggressive management of the severe depression and anxiety. Recommend continued psychopharmacologic and psychotherapeutic intervention for optimal prognosis. Treating physician may wish to initiate psychostimulant vs. nonpsychostimulant trial for improved attention/concentration and cognitive efficiency. Nonmedication routes of treatment may include functional nutrition management through [facility] or individual psychotherapy to develop behavioral strategies. Improved sleep quality. PSG/HST to assess and treat suspected underlying CLEMENCIA. Behavioral strategies for improved attention and memory: Regularly and frequently review information that must be remembered. Link new information in as many ways as possible to already known information. This strategy creates several avenues for remembering the information later. Utilize external memory sources such as lists, date books, calendars, and pocket-size recorders for information that must be remembered. A cellphone is a useful tool in consolidating all this information into one source. Active listening, such as repeating and summarizing information back to presenter when learning important information for future recall may be beneficial as opposed to simply passive listening. Establish a consistent structured routine. Continued regular physical activity for stress relief, improved cognitive efficiency, and better sleep. No need for neuropsychological re-evaluation. Thank you for allowing me to participate in the care of this individual. Please contact me with any questions at [phone]. documented in this encounter [facility] 10-30-2024 History of Present illness Narrative Images from the original note were not included. Leoncio Rosenberg, PhD NEUROBEHAVIORAL STATUS EXAMINATION Porter Maravilla is a 39 y.o. male referred for neuropsychological evaluation to assist with facilitating and informing medical differential diagnosis and clinical decision-making. The following information was obtained during an interview with the patient, as well as review of available records. PRESENTING PROBLEM AND HISTORY Concerns for baseline ADHD. Has history of struggling since around the 7th grade with comprehension, attention/concentration, distractibility, difficulty having information sink in, jumping between tasks, difficulty completing tasks, word finding difficulty, fluctuating memory, as well as poor planning, organization, and time management. This is becoming increasingly frustrating and impacting relationships. Otherwise, remains independent in ADLs, household responsibilities, finances, and medication. No driving, has never had a license. This is due to difficulty focusing. Fluctuating sleep quality with snoring and frequent jumps/startles throughout the night. Pain complaints include left knee. Neurological history includes arachnoid cyst that is being monitored. Relevant family history includes son with similar attention issues. Psychiatric history notable for depression, anxiety, and OCD -like tendencies. Meet with both therapy and psychiatry. No history of alcohol/substance abuse, stopped drinking altogether 3 years ago. Vapes nicotine. [place] language [place]. Completed 11 years of formal education. 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 Resides with significant other of 16 years along with their son. MEDICAL HISTORY/MEDICATION: Past Medical History: Diagnosis Date Arthritis Ciliary body cyst, unspecified laterality Lumbar degenerative disc disease Migraines (CMS/HCC) Seizure disorder (CMS/HCC) Seizure disorder (CMS/HCC) Simple febrile convulsions (CMS/HCC) Spondylolisthesis of lumbar region MEDICATIONS: Current Outpatient Medications Medication Instructions DULoxetine (CYMBALTA) 60 mg, Oral, Daily LaMICtal 100 MG tablet 1 tablet Orally three times daily methocarbamol (ROBAXIN) 750 mg, Oral, 4 times daily PRN nabumetone (RELAFEN) 500 mg, Oral, 2 times daily SEROquel 400 MG tablet 2 tablets traZODone (DESYREL) 100 mg, Oral, Nightly PRN INITIAL IMPRESSION AND PLAN: ADHD, inattentive type, forgetfulness, word finding difficulty, arachnoid cyst, depression, anxiety, and possible CLEMENCIA: The patient will be scheduled for neuropsychological assessment, which will include tests for memory, reasoning, language, problem-solving, attention, and mood. Thank you for allowing me to participate in the care of this individual. Please contact me with any questions at [phone]. documented in this encounter [facility] 08-01-2024 History of Present illness Narrative Images from the original note were not included. Subjective Patient ID: Porter Chief Complaint: Chief Complaint Patient presents with Left Knee - Follow-up Loose TKR History of present illness 39-year-old gentleman presented clinic today for follow-up evaluation left knee pain status post left total knee replacement. He is dealing with mechanical loosening of his left total knee replacement at an early age. He has been continuing with his brace as needed which seems to be helping with overall stability. He is having a hard time finding pain relief even though he is enrolled in pain management at this time. We discussed possibility of future of the use of muscle relaxants as well as other anti-inflammatory medications but he wants to hold off at this time. He is ambulating without assistance. Past medical , Surgical, Family and social history reviewed. Physical exam General: No acute distress and breathing comfortably. Patient is pleasant and cooperative with the examination. Extremity Left knee is neurovascular intact. Range of motion 0 to 110 degrees. Mild instability with varus valgus stress. Tender to palpation over the medial compartment of left knee. Mild weakness left lower extremity. No calf swelling or tenderness. Compartment soft. No sign of infection. Old incision well-healed. Diagnostics [ none] No results found. Procedure [ none] Assessment Mechanical loosening left total knee replacement Treatment plan 1. At this time we had a long discussion regards to continued conservative management versus surgical intervention including a left total knee revision surgery. The risks and benefits of this procedure were discussed with the patient today he wished to proceed in the early spring with a left total knee revision to help with mechanical loosening. 2. We discussed conservative treatment pain management program. He will continue with his brace and with his pain management physician. 3. He will follow-up with us for his preoperative appointment just prior to surgery. Shared billing time 4. All of the patient's questions were answered. Patient has failed all forms of conservative treatment. The joint pain is significantly affecting quality of life and activities of daily living. The patient has pain in the joint that is increased with activity and weightbearing, and walks with an antalgic gait. The pain is interfering with activities of daily living. Patient has limited range of motion and pain with passive range of motion. Symptoms are not improving with medication, physical therapy or supportive device for a period of at least 3 months. Patient would like to go and schedule joint replacement surgery. The procedure its risks, benefits, and treatment alternatives were discussed at length and patient would like to proceed. Patient is going to schedule the procedure at their earliest convenience and see me back for a preop visit just prior. Preadmission testing, medical checkup, and insurance authorization will be performed in the meantime. Patient understands a joint replacement surgery is a last resort, although a very successful operation results are not guaranteed. No orders of the defined types were placed in this encounter. This note was prepared using voice recognition software. The details of this note are correct and have been reviewed, and corrected to the best of my ability. Some grammatical areas may persist related to the [email or web address] software Moe Cuellar PA-C, [facility] [place] In a [id number] encounter performed today, I Nakul Sosa MD performed a history and physical examination, discussed pertinent diagnostic studies if indicated, and discussed diagnosis and management strategies with both the patient and the midlevel provider. I reviewed the midlevel's note and agree with the documented findings and plan of care. Greater than 50% of the evaluation and treatment decision was performed by the physician myself during today's visit. 39-year-old male with chronic left-sided knee pain positive bone scan knows he has loosening blood work seems to indicate aseptic loosening symptoms are becoming progressively worse she is having pain and instability in the knee previously discussed possibly proceeding with revision total knee replacement he continues to have severe impairment of bodily function and he like to go at get his surgery scheduled the brace definitely seems to be helping in the meantime. On examination well-healed incision full knee extension flexion to 90 tenderness in both the medial and lateral joint space along the tibial component brisk cap refill no signs of infection. Impression includes total knee replacement left. Plan is to proceed with revision total knee replacement the procedures risk benefits treatment alternatives and postoperative course were discussed with him at length particular with his age of 39 years. He understands and would like to go and proceed Patient has severe impairment related to her presenting condition. It is significantly impairing bodily function. We did discuss surgical and nonsurgical options. This note was prepared using voice recognition software. The details of this note are correct and have been reviewed, and corrected to the best of my ability. Some grammatical areas may persist related to the [email or web address] software Nakul Sosa MD Senior Attending Physician [facility] documented in this encounter [facility] Work Phone: 05-23-2024 History of Present illness Narrative Images from the original note were not included. New patient to me 38-year-old gentleman with a complicated history related to his left knee. He said all of his treatments elsewhere he presents complaining of chronic pain in his left knee and episodes of instability which is caused him to fall and now is having some issues with his right knee as a result of multiple falls. He brings with him a stack of papers showing all the treatment he is had for his left knee. I also reviewed extensively his medical record which is in the electronic medical record. Briefly he had a couple arthroscopies on his left knee with torn cartilage never got better from the arthroscopies ended up with a left total knee replacement which was done in 2021 and has had problems with his left knee ever since the day of the surgery he was told to wait a whole year which she did the symptoms continued he has been referred for multiple second and third opinions regarding his knee he continues to play and complain of pain and instability in his left knee he has intermittent swelling he has not had any problems with infection or blood clot or other postoperative complications. He states that the symptoms have gotten so bad that he gets depressed and has had issues with depression since his surgery as well Location of pain: Anterior and medial aspect knee left Quality of pain: Chronic pain ever since his knee surgery Modifying factors: Worse when he stands for prolonged period time or gets up and down from seated position better with rest Associated signs and symptoms: Has some swelling and definitely has instability in his knee Previous treatment: He said bracing and extensive physical therapy he has had extensive workup for his knee as well history of multiple knee arthroscopies knee and knee replacement The patient's past medical history, family history, social history, and review of systems were documented on the patient's medical intake form. The medical intake form was reviewed and scanned into the electronic medical record for future use. History is otherwise negative except as stated in the HPI. Physical exam General: Alert and oriented to place, person, and time. No acute distress and breathing comfortably; pleasant and cooperative with the examination. HEENT: Head is normocephalic and atraumatic. Neck: Supple, no visible swelling. Cardiovascular: Good perfusion to the affected extremity. Lungs: No audible wheezing or labored breathing. Abdomen: Nondistended HEME/Lymph : No visible abnormalities bilateral lower extremity Extremity: Left knee has a well-healed midline incision has full knee extension flexion to 95 degrees there is some mid flexion instability to varus valgus and some mild anterior posterior translation but not atypical. Neurologically intact distally with brisk cap refill compartments are soft calf is nontender when he does try to straight leg raise does have some tremor on the left side which he has had for quite some time and reportedly had some back problems as well and is not sure if it is related to his back surgery or his knee replacement compartments are soft calf is nontender no evidence of DVT or infection good range of motion of his hip and ankle Diagnostics: XR knee left 3 views Result Date: 05/23/2024 Interpreted By: Nakul Sosa, STUDY: XR KNEE LEFT 3 VIEWS; 05/23/2024 2:30 pm INDICATION: Signs/Symptoms:PAIN. ACCESSION NUMBER(S): [id number] ORDERING CLINICIAN: NAKUL SOSA FINDINGS: Left knee weightbearing four views. Status post cemented total knee replacement there is shadowing along the tibial component with slight subsidence along the medial aspect. No gross malalignment no signs of fracture dislocation or other bony abnormality Signed by: Nakul Sosa 05/23/2024 4:42 PM Dictation workstation: [id number] XR knee right 4+ views Result Date: 05/23/2024 Interpreted By: Nakul Sosa, STUDY: XR KNEE RIGHT 4+ VIEWS; 05/23/2024 2:30 pm INDICATION: Signs/Symptoms:pain. ACCESSION NUMBER(S): [id number] ORDERING CLINICIAN: NAKUL SOSA FINDINGS: Right knee weightbearing four views. Mild medial joint space narrowing moderate knee effusion no signs of fracture dislocation or other bony abnormality Signed by: Nakul Sosa 05/23/2024 4:41 PM Dictation workstation: [id number] Procedures [none ] Assessment: Loose left total knee replacement Treatment plan: 1. The natural history of the condition and its associated treatment alternatives including surgical and nonsurgical options were discussed with the patient at length. 2. Patient with a unfortunate situation of a loose cemented total knee replacement in a 38-year-old gentleman which is highly atypical not sure why he has a cemented knee replacement and not sure why he has loosening or even why he had a knee replacement at such a young age. He states he was just following the doctors recommendation and is disappointed with his outcome. I had extended conversation with him today explaining that indeed his implant appeared to be loose based on x-ray and bone scan findings and that this is not likely to get better over time. A revision knee replacement could solve his problem with loosening but would require more constrained implant and is a less predictable operation certainly. The benefits of a revision knee would be a more stable knee and likely less painful. It may or may not get him more range of motion. The downside is he is only 38 years of age and a revision knee is going to require a more constrained implant is currently implant is cemented and this will need to be completely dugout and removed and converted to a constrained implant possibly stemmed in the life expectancy of her revision implant is not the same as a primary implant and he is only again 38 years of age. There is certainly no emergency to perform any revision knee replacement surgery and we spent an extended time discussing this. He is going to think about how he wants to proceed and maybe set something up in the spring of next year if he has additional questions he will give me a call. We did discuss the revision knee replacement at length its risks benefits treatment alternatives and postoperative course. 3. [ ] 4. All of the patient's questions were answered. Orders Placed This Encounter XR knee left 3 views XR knee right 4+ views This note was prepared using voice recognition software. The details of this note are correct and have been reviewed, and corrected to the best of my ability. Some grammatical areas may persist related to the [email or web address] software Nakul Sosa MD Senior Attending Physician [facility] [place] documented in this encounter [facility] Work Phone: 04-28-2024 History of Present illness Narrative Images from the original note were not included. HISTORY OF PRESENT ILLNESS: EST PT Porter Maravilla is an 38 y.o. @ male. (EST PT) RECHECK (L) KNEE - S/P ECONOMY HINGED 02/25/24 S/P (L) TKA 06/05/22 - DR GREGORIO XRAYS, 02/24/24 IN EPIC BONE SCAN 07/12/23 [facility] [place] (L) KNEE, NON-VAS 01/20/23 @ [facility] (L) LE EMG 01/13/23 @ [facility] LUMBAR 01/23/23 @ [facility] 10/22/22 @ [facility] (SED RATE / CRP / CBC) S/P MDP 08/04/22, 07/12/23 PREVIOUS PHYSICAL THERAPY @ [facility] ; 06/05 - 08/05 PREVIOUS PHYSICAL THERAPY @ [facility] ; POST-OP PREVIOUS PAIN MGMT - DR GARRIDO ; S/P (L) KNEE GENICULAR NERVE BLOCK 02/04/23 [facility] 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 CONTINUES TO HAVE CONSTANT DISCOMFORT - WORSE WITH AMBULATION - MOSTLY MEDIAL ; SOME HAMSTRING PAIN. NOTES LIMITED / PAINFUL ROM - UNABLE TO FULLY BEND - STATES IT FEELS LIKE IT'S GOING TO SNAP ; SOME WEAKNESS / OCCASIONAL SHAKING. SOME SWELLING - ELEVATES / HEAT. TAKING IBUPROFEN PRN - DENIES ANY RELIEF. ALLERGIES: Allergies Allergen Reactions Penicillins Swelling Other Reaction(s): Unknown Tramadol Other Reaction(s): Mental Status Change, Unknown Ketorolac Anxiety Other Reaction(s): Other: See Comments, Unknown seizure HOME MEDICATIONS: Current Outpatient Medications Medication Instructions DULoxetine (CYMBALTA) 60 mg, Oral, Daily LaMICtal 100 MG tablet 1 tablet Orally three times daily methocarbamol (ROBAXIN) 750 mg, Oral, 4 times daily PRN nabumetone (RELAFEN) 500 mg, Oral, 2 times daily SEROquel 400 MG tablet 2 tablets traZODone (DESYREL) 100 mg, Oral, Nightly PRN PHYSICAL EXAM: Knee Musculoskeletal Exam Gait Gait is normal. Gait additional comments: Presents in (L) knee hinged brace Inspection Leg length disparity: no discrepancy Right Erythema: none Effusion: mild Edema: mild Ecchymosis: none Deformity: mild Alignment: varus Previous incision: no previous incision Left Erythema: none Effusion: mild Edema: none Deformity: none Alignment: normal Previous incision: anterior Incision: well-healed Palpation Right Increased warmth: none Masses: none Crepitus: patellofemoral and medial Tenderness: present Medial joint line: moderate Patella: mild Left Left knee palpation is unremarkable. Tenderness: none Range of Motion Right Active extension: 5 Active flexion: 120 Left Active extension: 5 Active flexion: 110 Range of motion additional comments: Spasms noted with ROM bilaterally Strength Right Extension: 5/5. Flexion: 5/5. Left Left knee strength is normal. Instability Right Instability signs: none - stable Varus stress grade: normal Valgus stress grade: normal Pivot shift: normal Anterior drawer: normal Posterior drawer: normal Dial test: normal Quad active test: normal Medial Gabriela test: negative Lateral Gabriela test: negative Francisco: negative Left Instability signs: none - stable Neurovascular Right Right knee neurovascular exam is normal. Patella reflex: 2/4 Pulses - DP: normal Dorsalis pedis: 2+ Pulses - PT: normal Posterior tibial: 2+ Capillary refill: brisk Left Left knee neurovascular exam is normal. Special Signs Right Patellar compression: moderate Patellar apprehension: none Vitals: There is no height or weight on file to calculate BMI. Tobacco Use: Medium Risk (04/28/2024) Patient History Smoking Tobacco Use: Former Smokeless Tobacco Use: Unknown Passive Exposure: Not on file Alcohol Use: Not At Risk (08/16/2023) Received from [facility] [employer] [facility] AUDIT-C Frequency of Alcohol Consumption: Never Average Number of Drinks: Patient does not drink Frequency of Binge Drinking: Never IMAGING: Procedures No orders of the defined types were placed in this encounter. ASSESSMENT: ICD-10-CM 1. Acute pain of left knee M25.562 nabumetone (Relafen) 500 MG tablet 2. History of left knee replacement Z96.652 3. Primary osteoarthritis of right knee M17.11 PLAN: We have answered all the patients questions and explained the patients condition, decision making and plan including the risks and benefits associated with said plan in layman''s terms in a language the patient could understand easily. If patient''s symptoms significantly worsen and they cannot get a hold of us or their family physician, we have recommended that the patient proceed to the nearest emergency department (room). Dr. Gregorio obtained history and examined the patient, I am acting as scribe for Dr. Gregorio/inga, PLAN: We have reviewed prior (L) knee xrays / bone scan results. After examination of his left knee today we are recommending that patient contact [facility] orthopedic dept for a 3rd opinion on his b/l knees / lower back. Patient is understanding and agreeable that if he is feeling like hurting himself / others to proceed to nearest ER. We have discussed his HEP and restrictions and will see him back on a prn basis. Jelnea Gregorio D.O. documented in this encounter [facility] 08-19-2023 Note Orthopedic Surgery Subjective Pain of the Left Knee (L TKA needs revision , L TKA done 1 year ago, c/o l knee ana m and gives out ) 08/19/2023 Patient is presenting today for evaluation of Left knee pain , patient is S/P Left TKA by Dr. Gregorio in [place] 06/05/2023 patient with history of Multiple arthroscopic surgeries before his knee replacement, patient with severe Left knee pain , failed multiple treatment including pain management pain blocks, patient has been seeing Spine surgery in [facility] and neurology as well , he has significant pain interfering with his ability to walk. Patient is waking with antalgic gait no waling aids, patient with history of Spine surgery , history of Neuritis, Myelopathy and spondylosis , he is presenting today for evaluation his knee , he stated that he was told that he needs surgery by the [facility] but they wouldn't do it. Patient [...] had periprosthetic joint infection ruled out by [facility] via inflammatory markers. He is seen here for consideration of another opinion regarding his left knee. States his pain and dysfunction is debilitating. Review of Systems unremarkable aside from what is noted in HPI Patient History Past Surgical History: Procedure Laterality Date KNEE SURGERY Left Past Medical History: Diagnosis Date Dislocated elbow Epilepsy ([facility]) Objective General: There is no height [...] to total left knee replacement, initial encounter ([facility]) - I reviewed the previous notes from [facility]. Discussed with the patient I discussed [...] surgery due to his valgus alignment. Jurgen Brambila MD [facility] 08-16-2023 Note Attestation signed by Damaris Perez [...] had periprosthetic joint infection ruled out by [facility] via inflammatory markers. He is seen here for consideration of another opinion regarding his left knee. States his pain and dysfunction is debilitating. Review of Systems unremarkable aside from what is noted in HPI Patient History Past Surgical History: Procedure Laterality Date KNEE SURGERY Left Past Medical History: Diagnosis Date Dislocated elbow Epilepsy ([facility]) Objective General: There is no height [...] to total left knee replacement, initial encounter ([facility]) Status post total left knee replacement [...] out of clinic today. -Referral to Dr. Brambila for consideration of revision total knee in [...] be an additional personal documentation from me. [facility] 08-02-2023 Note HNO ID: [id number] Author: Pooja Cordon MD Service: ? Author Type: Physician Type: Progress Notes Filed: 08/09/2023 9:35 PM Note Text: THE [facility] Date 08/02/23 I have communicated my name and active licensure. The patient's identity and physical location were verified at the time of this visit. Either the patient or their legal client support representative has been informed of the risks and benefits of -- and alternatives to -- treatment through a remote evaluation and consents to proceed with the evaluation remotely. This 38 year old living with significant other disabled x 2019 years ( for depression and pain) lives with significant other and son in [place]. The patient seen for psychiatric diagnostic evaluation. He was referred by Fuad Shankar [facility] [id number]. This consultation was shared with the referral source via the [facility] electronic medical record. 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 That he does grocery [...] have vivid dreams) Is getting meds from Duran Sy CNP in [place] ( been seeing her x 2 yrs) He is following up in [facility]. Therapist is Elizabeth Reilly. He sees her 2 times a week. Reports that he has taken Cymbalta and gabapentin ( reports that he was on gabapentin x 3 months , cymbalta x 4 month, ? Did not help) Spine Red Flag Porter (more content not included)... [facility] 08-02-2023 History of Present illness Narrative THE [facility] Date 08/02/23 I have communicated my name and active licensure. The patient's identity and physical location were verified at the time of this visit. Either the patient or their legal client support representative has been informed of the risks and benefits of -- and alternatives to -- treatment through a remote evaluation and consents to proceed with the evaluation remotely. This 38 year old living with significant other disabled x 2019 years ( for depression and pain) lives with significant other and son in [place]. The patient seen for psychiatric diagnostic evaluation. He was referred by Fuad Shankar [facility] [id number]. This consultation was shared with the referral source via the [facility] electronic medical record. 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 That he does grocery [...] have vivid dreams) Is getting meds from Duran Sy CNP in [place] ( been seeing her x 2 yrs) He is following up in [facility]. Therapist is Elizabeth Reilly. [...] OF lumbar fusion REMOVAL GALLBLADDER TONSILLECTOMY HX PDMP website checked and validated. All prescriptions [...] The patient was reared by mother in [place]. Moved to [place] 20 yrs ago. Don't know dad. He [...] which included preparing to see the patient, [id number] patient care, completing clinical documentation, obtaining and/or [...] phone or MyChart. documented in this encounter [facility] 07-02-2023 Note HNO ID: [id number] Author: Nelda Sheriff APRN.BLOCK TRADER Service: ? Author Type: Nurse Practitioner Type: Progress Notes Filed: 07/02/2023 12:25 PM Note Text: This is an Express [facility] eVisit note for Porter Maravilla eVisit/Questionnaire reviewed The chief complaint for the visit - Patient presents with: Back Pain Saw Ortho today Recommendations/Treatment plan - See My Chart Message to patient Time spent <1 minute Nelda Sheriff APRN.CNP [facility] 07-02-2023 History of Present illness Narrative This is an [facility] eVisit note for Porter Maravilla eVisit/Questionnaire reviewed The chief complaint for the visit - Patient presents with: Back Pain Saw Ortho today Recommendations/Treatment plan - See My Chart Message to patient Time spent <1 minute Nelda Sheriff APRN.CNP documented in this encounter [facility] 06-28-2023 Note HNO ID: [id number] Author: Fuad Pierce PA-C Service: ? Author Type: Physician Construction Rep Type: Progress Notes Filed: 06/28/2023 10:11 PM Note Text: THE [facility] [place] June 28, 2023 Porter Maravilla is a 37 year old partnered male, not working, only volunteering, who lives with significant other and son (12 yoa) in [place], [place]. He was referred by Shea Plasencia [address] [place] [address]. Consultation requested by Luis Angel for an [...] feels like it is snapping Pain severity 8-10 Aggravating factors - walking, sitting Does not [...] Hx of left total knee replacement at [facility] by dr Smyth May 2022 - due [...] n/a CHF: denies Uncontrolled HTN: denies Recent [place]: denies Arrythmias: denies Afib: denies Hyperthyroid: denies [...] He has not used tobacco since 2019. @[facility]@ [facility] current and past significant alcohol use Drug use: There is no history of recreational substance use. . Family History FAMILY HISTORY Problem Relation Age of (more content not included)... [facility] 06-28-2023 History of Present illness Narrative THE [facility] [place] June 28, 2023 Porter Maravilla is a 37 year old partnered male, not working, only volunteering, who lives with significant other and son (12 yoa) in [place], [place]. He was referred by Shea Plasencia [address] [place] [address]. Consultation requested by Luis Angel for an [...] feels like it is snapping Pain severity 8-06/22 Aggravating factors - walking, sitting Does not [...] Hx of left total knee replacement at [facility] by dr Smyth May 2022 - due [...] n/a CHF: denies Uncontrolled HTN: denies Recent [place]: denies Arrythmias: denies Afib: denies Hyperthyroid: denies [...] HISTORY Diagnosis Date Arachnoid cyst Bipolar disorder ([facility]) Depression Epilepsy ([facility]) History of high blood pressure Migraines [...] He has not used tobacco since 2019. @[facility]@ denies current and past significant alcohol use [...] which included preparing to see the patient, [id number] patient care, completing clinical documentation, obtaining and/or reviewing separately obtained history, performing a medically appropriate examination, counseling and educating the patient/family/caregiver, and ordering medications, tests, or procedures. Important Patient Information: 1. To schedule Pain Recovery appointments or post-injection office visits, please call: [phone] 2. The nursing staff and medical assistants are an integral part of your pain recovery team and will be handling your phone calls and inquiries. 3. Your study results and treatment plan will be discussed during a follow-up appointment. If you do not have a follow-up appointment and wish to discuss any issues directly with me, please call: [phone] to set-up an appointment. 4. MyChart is best used for refill requests or yes or no questions. Anything more complicated will likely require a follow-up appointment that you can schedule by [phone]. 5. It is the practice of the [...] is an opening. documented in this encounter [facility] 06-11-2023 Note HNO ID: [id number] Author: Shea Plasencia APRN.BLOCK TRADER Service: ? Author Type: Nurse Practitioner Type: Progress Notes Filed: 06/11/2023 3:53 PM Note Text: SPINE SURGERY ESTABLISHED VISIT This is a virtual visit using [employer]. It required patient-provider interaction for the medical decision making as documented below. I have communicated my name and active licensure. The patient's identity and physical location were verified at the time of this visit. Either the patient or their legal client support representative has been informed of the risks [...] which included preparing to see the patient, rqai-ib-moca patient care, completing clinical documentation, obtaining and/or reviewing separately obtained hi (more content not included)... [facility] 06-09-2023 Note HNO ID: [id number] Author: Kelle Gordon, DO Service: ? Author Type: Physician Type: Progress Notes Filed: 06/09/2023 2:53 PM Note Text: This is a virtual visit using Dopplr video visit. It required patient-provider interaction for the medical decision making as documented below. I have communicated my name and active licensure. The patient's identity and physical location were verified at the time of this visit. Either the patient or their legal client support representative has been informed of the risks [...] at bedtime. QUEtiapine (more content not included)... [facility] 06-04-2023 Evaluation note Encounter Date Diagnosis Assessment [...] (ICD-10 - Z96.652) Follow up as needed [facility] Other 09-19-2023 Miscellaneous Notes* Telephone Encounter - Mojgan Virgen RN - 06/01/2023 4:58 PM EDT VV offered to patient via . Awaiting reply. WASHINGTON Leach, RN [employer] Consultant June 01, 2023 4:58 PM * Telephone Encounter - Mojgan Virgen RN - 06/01/2023 2:22 PM EDT Visit held on 06/09/23 @ 220pm on Dr. Gordon's main campus schedule, if needed. Inquiry sent to for review. WASHINGTON Leach, RN [employer] Consultant June 01, 2023 2:22 PM * Telephone Encounter - Martha Brown - 06/01/2023 1:33 PM EDT Patient is calling in about info below documented in this encounterGrant [facility]08-18[facility]23 Miscellaneous Notes* Telephone Encounter - Toribio Hammond [...] management. Toribio Hammond PA-C documented in this encounterGrant Hospital08-16-2023 NoteHNO ID: [id number] Author: Shea Plasencia APRN.BLOCK TRADER Service: ? Author Type: Nurse Practitioner Type: [...] visit. Either the patient or their legal client support representative has been informed of the risks [...] half the days 3 (more content not included)...[facility]08-16-2023 History of Present illness Narrative* Shea Plasencia APRN.BLOCK TRADER - 04/28/2023 1:00 PM EDT SPINE SURGERY ESTABLISHED VISIT This is a virtual visit using Audio only. It required patient-provider interaction for the medical decision making as documented below. I have communicated my name and active licensure. The patient's identity and physical location wereverified at the time of this visit. Either the patient or their legal client support representative has been informed of the risks [...] which included preparing to see the patient, [id number] patient care, completing clinical documentation, obtaining and/or reviewing separately obtained history, performing a medically appropriate examination, counseling and educating the pat ient/family/caregiver, independently interpreting results (not separately reported), and communicating results to the patient/family/caregiver. SIGNATURE: Shea Plasencia APRN.CNP PATIENT NAME: Porter Maravilla DATE: April 28, 2023 TIME: 1:10 PM PAGER: documented in this encounterGrant Hospital08-09-2023 NoteHNO ID: [id number] Author: Viviana Macedo MD Service: ? Author Type: Physician Type: Progress Notes Filed: 04/26/2023 3:15 PM Note Text: Chief Complaint: No chief complaint on file. HPI: Patient is 37 year old male here for second opinion on left knee 37-year-old male presents for evaluation of left lower extremity pain status post left total knee replacement on [facility] by Dr. Jelena Smyth May 2022. Patient claims since the surgery the knee has been very painful ambulates with a valgus thrust and with every step it is painful. He is also status post back fusion done in 2019. He has been evaluated by pain management. He was worked up extensively in the [place] area had labs done back x-rays CT [...] to be well balanced (more content not included)...[facility] 04-21-2023 History of Present illness Narrative* Viviana Macedo MD - 04/21/2023 9:32 PM EDT Chief Complaint: No chief complaint on file. HPI: Patient is 37 year old male here for second opinion on left knee 37-year-old male presents for evaluation of left lower extremity pain status post left total knee replacement on [facility] by Dr. Jelena Smyth May 2022. Patient claims since the surgery the knee has been very painful ambulates with a valgus thrust and with every step it is painful.He is also status post back fusion done in 2019. He has been evaluated by pain management. He was worked up extensively in the [place] area had labs done back x-rays CT [...] Past Histories independently gathered by the clinical administrative support clerk and the remaining scribed note accurately describes my personal service to the patient. The patient is seen and examined by Dr. Macedo and the following reflects his/her service. Scribed by Lesley Melendez RN documented in this encounterGrant Hospital07-11-2023 NoteHNO ID: [id number] Author: Toribio Hammond PA-C Service: ? Author Type: Physician Construction Rep Type: Progress Notes Filed: 03/23/2023 8:58 AM Note Text: Spoke to patient concerning is painful left total knee discussed treatment options of try some tramadol he said he is allergic to tramadol. He is presently taking Celebrex and gabapentin. I told him to get an appointment to see one of our revision surgeons to discuss other treatment options. NATALIIA Garcia-[facility]07-10-2023 Miscellaneous Notes* Telephone Encounter - Cecily Rivera - 03/22/2023 4:08 PM EDT Demographic page, TENS order and office visit notes faxed to [facility]. Cecily Rivera documented in this encounterGrant Hospital07-06-2023 NoteHNO ID: [id number] Author: Destiney Garcia MD Service: ? Author Type: Physician Type: Progress Notes Filed: 03/22/2023 10:58 AM Note Text: [facility] Office Visit Porter Maravilla is referred by NATALIIA Ward (spine). Unaccompanied Room: 20 Chief Complaint: both knees L>>R HISTORY OF PRESENT ILLNESS Mr. Porter Maravilla presents to [facility] for the evaluation of L>R knee pain s/p LTKR 06/09/22 pain. S/p genicular nerve blocks left by Trey Garrido MD on 02/11/23 from which he had [...] told to get all his records from [facility] CT scan on a disc along with [...] kg (240 lb) (more content not included)... [facility]07-06-2023 History of Present illness Narrative* Destiney Garcia MD - 03/18/2023 3:40 PM EDT [facility] Office Visit Porter Maravilla is referred by NATALIIA Ward (spine). Unaccompanied Room: 20 Chief Complaint: both knees L>>R HISTORY OF PRESENT ILLNESS Mr. Porter Maravilla presents to [facility] for the evaluation of L>R knee pain s/p LTKR 06/09/22 pain. S/p genicular nerve blocks left by Trey Garrido MD on 02/11/23 from which he had [...] told to get all his records from [facility] CT scanon a disc along with the [...] tried TENS unit, so [facility]. Finally, [...] - order placed and pamphlet provided FTFT: [phone] Shared decision making utilized to continue current [...] of your PCP/referring physician. 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 yes documented in this encounterGrant Hospital07-03-2023 NoteHNO ID: [id number] Author: Toribio Hammond PA-C Service: ? Author Type: Physician Construction Rep Type: Progress Notes Filed: 03/15/2023 2:41 PM Note Text: Discussed results of the lab results ordered due to location painful knee left total knee placement. CBC ESR and CRP were normal. On x-ray there is lateral tracking of the patella surgery brace was ordered and he will pick that up from x-rays in clinic facility casted. NATALIIA Garcia-[facility]07-03-2023 History of Present illness Narrative* Toribio Hammond [...] casted. Toribio Hammond PA-C documented in this encounterGrant Hospital07-03-2023 Miscellaneous Notes* Telephone Encounter - Toribio Hammond PA-C - 03/15/2023 2:31 PM EDT This check on the patient no answer on his phone Labs are normal. Toribio Hammond PA-C documented in this encounterGrant Hospital06-23-2023 NoteHNO ID: [id number] Author: Toribio Hammond PA-C Service: ? Author Type: Physician Construction Rep Type: Progress Notes Filed: 03/05/2023 12:29 PM [...] status post left total knee replacement on [facility] by Dr. Jelena Smyth May 2022. Patient claims since the surgery the knee has been very painful ambulates with a valgus thrust and with every step it is painful. He is also status post back fusion done in 2019 and has not followed with recovered from that also. He was worked up extensively in the [place] area had labs done back x-rays CT [...] total knee replacement surgery; Date: 2021 at [facility]. Review of Systems Constitutional: Negative. HENT: [...] joint line, lateral join (more content not included)...[facility]06-23-[facility]23 Instructions* Patient Instructions* Toribio Hammond PA-C - 03/05/2023 10:57 AM EDT Patient was told to get the left knee operative note from [facility] also told to get the CAT scan that was done of his lumbar spine and other lab works and examination done from [place] and bring with him to the next appointment. This case will be discussed with one of her previous joint revision surgeon. Patient was sent to pain management for chronic lower back pain and left knee pain status post lefttotal knee replacement May 15, 2022 and back surgery lower lumbar fusion 2019. documented in this encounterGrant Hospital06-23-2023 History of Present illness Narrative* Toribio Hammond [...] status post left total knee replacement on [facility] by Dr. Jelena Smyth May 2022. Patient claims since the surgery the knee has been very painful ambulates with a valgus thrust and with every step it is painful.He is also status post back fusion done in 2019 and has not followed with recovered from that also.He was worked up extensively in the [place] area had labs done back x-rays CT [...] total knee replacement surgery; Date: 2021 at [facility]. Review of Systems Constitutional: Negative. HENT: [...] to total left knee replacement, initial encounter ([facility]) (primary encounter diagnosis) Plan: CBC + [...] to total left knee replacement, initial encounter ([facility]) (primary encounter diagnosis) (M25.462) Effusion of [...] told to get all his records from [facility] CT scanon a disc along with the [...] 2023 TIME: 10:27 AM documented in this encounterGrant Hospital06-12-2023 NoteHNO ID: [id number] Author: Shea Plasencia APRN.YVON Service: ? Author Type: Nurse Practitioner Type: Progress Notes Filed: 02/22/2023 2:04 PM Note Text: SPINE SURGERY ESTABLISHED VIRTUAL VISIT This is a virtual visit using Dopplr video visit. It required patient-provider interaction for the medical decision making as documented below. I have communicated my name and active licensure. The patient's identity and physical location were verified at the time of this visit. Either the patient or their legal client support representative has been informed of the risks [...] a second opinion with ortho here at [facility] at end of February. Also has appointment [...] pain (primary encounter (more content not included)... [facility]06-06-[facility]23 Miscellaneous Notes* Telephone Encounter - Mojgan Virgen [...] Not yet scheduled Update shared with . Mojgan Virgen, MSN, RN [employer] February 16, 2023 3:30 PM documented in this encounterGrant Hospital06-01-2023 Evaluation note* Encounter Date Diagnosis Assessment Notes [...] is unremarkable. Continue with current treatment plan [facility] Other 05-26-2023 NoteHNO ID: [id number] Author: Kelle Gordon, DO Service: ? Author [...] HPI/Conservative Treatment Section (NSAIDs, PT, HEP and/or Evp Chief Exploration Officer within last 3-6 months) . For possible Lumbar Radiculopathy due to presence of red flags detailed in HPI, interventional planning, surgical planning, progressive leg weakness, and leg pain unresponsive to medical management. Prior Therapy: Multiple rounds of physical therapy for his k (more content not included)... [facility]05-03-2023 NoteHNO ID: [id number] Author: Shea Plasencia APRN.BLOCK TRADER Service: ? Author Type: Nurse Practitioner Type: [...] knee etiology, pending spine (more content not included)...[facility]05-03-2023 History of Present illness Narrative* Shea Plasencia APRN.BLOCK TRADER - 01/13/2023 9:10 PM EDT SPINE SURGERY [...] HPI/Conservative Treatment Section (NSAIDs, PT, HEP and/or Evp Chief Exploration Officer within last 3-6 months) . For possible Lumbar Radiculopathy due to presence of red flags detailed in HPI, interventional planning, surgical planning, progressive leg weakness, and leg pain unresponsive to medical management. I spent a total of 40 minutes on the date of the service which included preparing to see the patient, yaxi-pp-edib patient care, completing clinical documentation, obtaining and/or reviewing separately obtained history, performing a medically appropriate examination, counseling and educating the pat ient/family/caregiver, independently interpreting results (not separately reported), and communicating results to the patient/family/caregiver. SIGNATURE: Shea Plasencia APRN.CNP PATIENT NAME: Porter Maravilla DATE: January 13, 2023 TIME: 9:10 PM PAGER: documented in this encounterGrant Hospital05-03-2023 NoteHNO ID: [id number] Author: RT Ronn(R) Service: Radiology Author Type: [...] BY: RT Ronn(Kathie) January 13, 2023 4:23 [facility]05-03-2023 NoteHNO ID: [id number] Author: Sahra Oliva, DO Service: ? Author Type: Physician Type: [...] Care Visit completed when applicable. [facility] History of Present illness Narrative* Sahra Oliva [...] applicable. Kathie Lafleur DO documented in this encounterGrant Hospital04-26-2023 NoteHNO ID: [id number] Author: Shea Plasencia APRN.BLOCK TRADER Service: ? Author Type: Nurse Practitioner Type: [...] of life. 50th pe (more content not included)...[facility]04-14-2023 NoteHNO ID: [id number] Author: Bernadine Kincaid PA-C Service: ? Author Type: Physician Construction Rep Type: Progress Notes Filed: 12/25/2022 5:07 PM Note Text: Per Triage: Porter Maravilla is a 37 year old male that requests evaluation of spine. Per review, they have symptoms of lower back pain, left leg pain. Numbness big toes bilaterally. Difficulty walking, weakness Request: 1st available Referring provider: Jelena Gregorio Patient out of state: no 2nd opinion: no Prior spine surgery: yes [address] [facility] Address: [address] [place] [address] [place] [address] CMT: PT Injections IBU Studies (Reports unless [...] can be reviewed during the appt [facility] History of Present illness Narrative* Bernadine Kincaid [...] opinion: no Prior spine surgery: yes [address] [facility] Address: [address] [place] [id number] CMT: PT Injections IBU Studies (Reports unless [...] Health Provider or Pain Management Provider at [facility]? No If answer is YES please schedule [...] the facility where the MRI/CT/myelogram was completed: [facility] Address: [address] [place] [address] MRI/CT/myelogram viewable in Epic: No If not, please provide [phone] to fax in imaging reports for review. [...] therapy was completed PT MACIE Gallagher Address: [address] [place] [address] [facility] Address: [address] [place] [address] Have you tried any other kinds of [...] of where the surgery was completed: [address] [facility] Address: [facility] [place] [id number] Additional Comments documented in this encounterGrant Hospital04-14-2023 NoteHNO ID: [id number] Author: Donny Downs Service: ? Author Type: ? Type: Progress Notes Filed: 12/25/2022 5:07 PM Note Text: Patient name: Porter Maravilla Are you being referred by a [facility] for Spine Health Provider or Pain Management Provider at [facility]? No If answer is YES please schedule [...] the facility where the MRI/CT/myelogram was completed: [facility] Address: [address] [place], [place] [address] [id number] MRI/CT/myelogram viewable in Epic: No If not, please provide [phone] to fax in imaging reports for review. [...] injections and/or physical therapy was completed PT JUANS Elliott Address: [address] [place] [address] [facility] Address: [address] [place], [place] [address] [id number] Have you tried any other kinds of [...] of where the surgery was completed: [address] [facility] Address: [address] [place], [place] [address]candelario [place]ar [place] [id number] Additional Comments [facility]03-30-2023 Evaluation note* Encounter Date Diagnosis Assessment Notes [...] - G89.29) Continue with current treatment plan [facility] Other 03-08-2023 Evaluation note* Encounter Date Diagnosis [...] - G89.29) Continue with current treatment plan [facility] Other 02-09-2023 Evaluation note* Encounter Date Diagnosis [...] refer patient back to pain management, Dr Garrido, for sacroiliac injection therapy. Follow up in 3 months or sooner if symptoms worsen or do not improve. 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 [facility] Other 06-06-2022 Evaluation note* Encounter Date Diagnosis [...] current treatment plan, follow up after procedure. [facility] Other 05-18-2022 Evaluation note* Encounter Date Diagnosis [...] those issues. Patient has already seen Dr Garrido for pain management in the past, I will send a copy of my notes to him for recommendations for selective left L5 nerve root injections January, Lumbosacral spondylosis (ICD-10 - M47.817) [facility] Other 03-16-2022 Evaluation note* Encounter Date Diagnosis [...] determination if we should order an MRI. [facility] Other 11-17-2021 Evaluation note* Encounter Date Diagnosis [...] and contact him once results are available. Galenea Other evaluation noteNo InformationNort Treatful Other evaluation noteNo assessment information available [facility] Work Phone: Evaluation note* Diagnosis S/P lumbar fusion- Primary Arthrodesis status Lumbar radiculopathy Thoracic or lumbosacral neuritis or radiculitis, unspecified documented [facility]* Diagnosis Weakness generalized- Primary Other malaise and fatigue Radiculopathy of lumbar region Thoracic or lumbosacral neuritis or radiculitis, unspecified S/P lumbar fusion Arthrodesis status Compression of common peroneal nerve of left lower extremity documented [facility] this encounter [facility]* Diagnosis Spondylosis with myelopathy, thoracic region- Primary Gait instability Abnormality of gait Radiculopathy of lumbar region Thoracic or lumbosacral neuritis or radiculitis, unspecified Effusion of left knee Effusion of lower leg joint Tear of medial meniscus of right knee, current, unspecified tear type, initial encounter documented [facility] this encounter [facility]* Diagnosis Left leg pain- Primary Pain in limb Chronic pain of left knee Pain in joint, lower leg Myofascial pain Mylagia and myositis, unspecified Spasm of muscle documented [facility] this encounter [facility]* Diagnosis Pain due to total left knee replacement, initial encounter ([facility])- Primary Effusion of left knee Effusion of lower leg joint Tear of medial meniscus of right knee, current, unspecified tear type, initial encounter [facility]* Diagnosis Chronic pain of left knee- Primary Pain in joint, lower leg documented [facility] encounter [facility]* Diagnosis Neuralgia and neuritis- Primary Neuralgia, [...] Index 30.0-30.9, adult documented in this encounter [facility]* Diagnosis Status post total left knee replacement- Primary documented [facility]* Diagnosis Left leg pain- Primary Pain in limb Chronic pain of left knee Pain in joint, lower leg Spasm of muscle Gait instability Abnormality of gait Suicidal ideation documented [facility] this encounter [facility]* Diagnosis History of left knee replacement- Primary Chronic pain of left knee Pain in joint, lower leg Bipolar 1 disorder ([facility]) Bipolar I disorder, most recent episode (or current) unspecified documented [facility] this encounter [facility]* Diagnosis Treatment not available- Primary Procedure not carried out for other reasons [facility]* Diagnosis Chronic pain syndrome- Primary Pain disorder associated with psychological factors and medical condition Other pain disorders related to psychological factors RESHMA (generalized anxiety disorder) Generalized anxiety disorder Chronic use of benzodiazepine for therapeutic purpose MDD (major depressive disorder), recurrent episode, moderate (HCC) Major depressive disorder, recurrent episode, moderate [facility]* Diagnosis Left knee pain, unspecified chronicity- Primary documented in this encounter [facility] Work Phone: Evaluation note* Diagnosis Left knee pain, unspecified chronicity Right knee pain, unspecified chronicity documented in this encounter [facility] Work Phone: Evaluation note* Diagnosis Left knee pain, unspecified chronicity- Primary Right knee pain, unspecified chronicity Left knee pain, unspecified chronicity Right knee pain, unspecified chronicity documented in this encounter [facility] Work Phone: Evaluation note* Diagnosis Acute pain of left knee- Primary History of left knee replacement Primary osteoarthritis of right knee [facility] Diagnosis Memory loss- Primary ADHD (attention deficit hyperactivity disorder), inattentive type (CMS/HCC) Word finding difficulty CLEMENCIA (obstructive sleep apnea) Obstructive sleep apnea (adult) (pediatric) Arachnoid cyst Cerebral cysts Depression, unspecified depression type (CMS/HCC) Anxiety Anxiety state, unspecified [facility] Diagnosis Memory loss- Primary ADHD (attention deficit hyperactivity disorder), inattentive type (CMS/HCC) Word finding difficulty CLEMENCIA (obstructive sleep apnea) Obstructive sleep apnea (adult) (pediatric) Arachnoid cyst Cerebral cysts Severe episode of recurrent major depressive disorder, without psychotic features (HCC) (CMS/HCC) Severe anxiety [facility] Diagnosis 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 Left knee pain, unspecified chronicity Mechanical loosening of internal left knee prosthetic joint, initial encounter documented in this encounter [facility] Work Phone: Evaluation note* Diagnosis 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 Right knee pain, unspecified chronicity Mechanical loosening of internal left knee prosthetic joint, initial encounter documented in this encounter [facility] Work Phone: Evaluation note* Diagnosis 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 Primary osteoarthritis of right knee- Primary Left knee pain, unspecified chronicity Right knee pain, unspecified chronicity Right knee pain, unspecified chronicity Left knee pain, unspecified chronicity Mechanical loosening of internal left knee prosthetic joint, initial encounter documented in this encounter [facility] Work Phone: History general Narrative - Reported* Type Description Date Medical History DEPRESSION Medical History BIPOLAR Medical History 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 Surgical History TONSILS Surgical History ORAL SURGERY/ WISDOM TEETH Surgical History GALLBLADDER Surgical History left knee scope with medial men isectomy 02/2020 Surgical History DELPHINE-Doctor Lopez Hospitalization History SEE ABOVE SURGERY Hospitalization History ISRAELIntooBR Other History general Narrative - Reported* Type [...] medial men isectomy 02/2020 Surgical History ALIF-Doctor Lopez Hospitalization History SEE ABOVE SURGERY Hospitalization History [place]RA[place]-BACK [facility] [employer] Other reason for visit NarrativeINCREASE BACK PAIN [facility] Other Reason for visit Narrative* Neuropsych Testing (Routine) - Closed Specialty Diagnoses / Procedures Referred By Contact Referred To Contact Neuropsychology / Neurology Diagnoses Attention and concentration deficit Procedures RI NEUROPSYCHOLOGICAL TST EVAL PHYS/QHP EA ADDL HR Duran Sy, ZECHARIAH [address] [place] [address] Phone: tel:[phone] fax:[phone] Leoncio Rosenberg, PhD [address] [place] [address] Phone: tel:[phone] fax:[phone] Referral ID Status Reason Start Date Expiration Date V isits Requested Visits Authorized [id number] Closed Specialty Services Required 10/04/2024 04/02/2025 1 1 [facility]* Imaging (Routine) - Authorized Specialty Diagnoses / Procedures Referred By Contac t Referred To Contact Radiology Diagnoses Left knee pain, unspecified chronicity Procedures XR knee left 3 views Nakul Sosa MD [address] [facility], [address] [place] [address] Phone: tel: fax: Referral ID Status Reason Start Date Expiration Date Visits Requested Visits Authorized [id number] Authorized Perform Procedure 01/23/2025 01/23/2026 1 1 [facility] Work Phone: Reason for visit Narrative* Imaging (Routine) - Authorized Specialty Diagnoses / Procedures Referred By Contac t Referred To Contact Radiology Diagnoses Right knee pain, unspecified chronicity Procedures XR knee right 4+ views Nakul Sosa MD [address] [facility], [address] [place] [address] Phone: tel: fax: Referral ID Status Reason Start Date Expiration Date Visits Requested Visits Authorized [id number] Authorized Perform Procedure 01/23/2025 01/23/2026 1 1 [facility] Work Phone: Summary Purpose Family History No Family History Records Found Relationship Condition Age at Onset Recorded Date/T marilee grandparent Malignant neoplasm of prostate Unknown Diabetes mellitus Unknown Not Specified Unknown family medical history Unknown father Unknown family medical history Unknown Advance Directives No Advanced Directives Records Found Advance Directive Response Recorded Date/ Time Advance Directives No December 22, 1:35pm Advance Directive Response Recorded Date/ Time Advance Directives No December 22 12:35pm Reason for Referral Specialty Diagnoses / Procedures Referred By Contac t Referred To Contact Radiology Diagnoses Right knee pain, unspecified chronicity Procedures XR knee right 4+ views Nakul Sosa MD [address] [facility], [address] [place] [address] Referral ID Status Reason Start Date Expiration Date Visits Requested Visits Authorized [id number] Authorized Perform Procedure 05/23/2024 05/23/2025 1 1 Specialty Diagnoses / Procedures Referred By Contac t Referred To Contact Radiology Diagnoses Left knee pain, unspecified chronicity Procedures XR knee left 3 views Nakul Sosa MD [address] [facility], [address] [place] [address] Referral ID Status Reason Start Date Expiration Date Visits Requested Visits Authorized [id number] Authorized Perform Procedure 05/23/2024 05/23/2025 1 1 Specialty Diagnoses / Procedures Referred By Contac t Referred To Contact Diagnoses History of left knee replacement Chronic pain of left knee Procedures PROVIDER ORDERED FOLLOW UP OFFICE/OUTPATIENT NEW [facility] 60-74 MINUTES Fuad Pierce PA-C [address] [place] [address] Referral ID Status Reason Start Date Expiration Date Visits Requested Visits Authorized [id number] Authorized PCP Requested Referral 3 06/27/2024 1 1 Specialty Diagnoses / Procedures Referred By Contac t Referred To Contact [facility] [place] Diagnoses History of left knee replacement Chronic pain of left knee Bipolar 1 disorder (HCC) Procedures CONSULT TO [facility] OFFICE/OUTPATIENT [facility] 60-74 MINUTES Fuad Pierce PA-C [address] [phone] Referral ID Status Reason Start Date Expiration Date Visits Requested Visits Authorized [id number] Pending Review PCP Requested Referral 3 06/27/2024 1 1 Specialty Diagnoses / Procedures Referred By Contac t Referred To [facility] [place] Diagnoses History of left knee replacement Chronic pain of left knee Procedures CONSULT TO [facility] PAIN) OFFICE/OUTPATIENT [facility] 60-74 MINUTES Fuad Pierce PA-C [address] [phone] Referral ID Status Reason Start Date Expiration Date Visits Requested Visits Authorized [id number] Pending Review PCP Requested Referral 3 06/27/2024 1 1 Specialty Diagnoses / Procedures Referred By Contac t Referred To [facility] [place] Diagnoses Left leg pain Chronic pain of left knee Spasm of muscle Gait instability Procedures CONSULT TO [facility] ([facility] PAIN) OFFICE/OUTPATIENT [facility] 60-74 MINUTES Shea Plasencia APRN.BLOCK TRADER [address] [phone] Referral ID Status Reason Start Date Expiration Date Visits Requested Visits Authorized [id number] Pending Review PCP Requested Referral 04/29/2023 04/27/2024 1 1 Specialty Diagnoses / Procedures Referred By Contac t Referred To Contact Pain Management Diagnoses Effusion of left knee Tear of medial meniscus of right knee, current, unspecified tear type, initial encounter Procedures CONSULT TO PAIN MGT OFFICE/OUTPATIENT [facility] 60-74 MINUTES Toribio Hammond PA-C [address] [place] [address] Referral ID Status Reason Start Date Expiration Date Visits Requested Visits Authorized [id number] Authorized PCP Requested Referral 03/05/2023 03/04/2024 1 1 Specialty Diagnoses / Procedures Referred By Contac t Referred To Contact Pain Management Diagnoses Left leg pain Myofascial pain Spasm of muscle Procedures CONSULT TO PAIN MGT OFFICE/OUTPATIENT [facility] 60-74 MINUTES Shea Plasencia APRN.BLOCK TRADER [address] [place] [address] Referral ID Status Reason Start Date Expiration Date Visits Requested Visits Authorized [id number] Authorized PCP Requested Referral 03/02/2023 03/01/2024 1 1 Specialty Diagnoses / Procedures Referred By Contac t Referred To Contact MR IMAGING Diagnoses Radiculopathy of lumbar region Gait instability Spondylosis with myelopathy, thoracic region Procedures MRI THORACIC SPINE WO IVCON MRI SPINAL CANAL THORACIC W/O CONTRAST MATRL Shea Plasencia APRN.BLOCK TRADER [address] [place] [address] Mr Imaging Referral ID Status Reason Start Date Expiration Date Visits Requested Visits Authorized [id number] Pending Review Auto-Generat ed Referral 01/13/2023 02/12/2024 1 1 Specialty Diagnoses / Procedures Referred By Contac t Referred To Contact Orthopedics Diagnoses Effusion of left knee Tear of medial meniscus of right knee, current, unspecified tear type, initial encounter Procedures CONSULT PANEL TO ORTHOPAEDICS OFFICE/OUTPATIENT [facility] 60-74 MINUTES Shea Plasencia APRN.BLOCK TRADER [address] [phone] Referral ID Status Reason Start Date Expiration Date Visits Requested Visits Authorized [id number] Authorized PCP Requested Referral 01/13/2023 01/13/2024 1 1 Specialty Diagnoses / Procedures Referred By Contac t Referred To Contact XR IMAGING Diagnoses Effusion of left knee Tear of medial meniscus of right knee, current, unspecified tear type, initial encounter Gait instability Procedures XR KNEE GENERAL 4V AP BOTH/PA BOTH/LAT/MERC BILATERAL RADIOLOGIC EXAM KNEE COMPLETE 4/MORE VIEWS Shea Plasencia APRN.BLOCK TRADER [address] [place] [address] Xr Imaging Referral ID Status Reason Start Date Expiration Date V isits Requested Visits Authorized [id number] Closed Auto-Generate d Referral 01/13/2023 02/12/2024 1 1 Reason 11/18/22 @ 1:45pm Evaluate and Treat SI Joint Pain Diagnosis 1 Sacroiliac inflammat ion (M46.1) Referral Organization [facility] Referring Provider First Name Yolande Referring Provider Last Name Ebony Referring Provider Specialty Nurse Pract itcarito Referred Organization [facility] Pain Managemen t Referred Provider Trey Garrido Referred Address [address] [facility] [address] ,[place], [place],[address] Referred Provider Specialty Pain Medicin e Referral Priority Routine Referral Appointment Date 2022-11-18 General Notes Marlin Fulton 023 07:21:41 AM >Received today and sending P2P. Patient is already established with Dr. Garrido and was a no show to his last appt Marlin Fulton 11/04/2022 11:56:15 AM >Patient has been scheduled Reason Evaluate and Treat Diagnosis 1 Spondylolisthesis, l umbosacral region (M43.17) Referral Organization [facility] Referring Provider First Name Dario Referring Provider Last Name Lopez Referring Provider Specialty Neurosurger y Referred Organization [facility] Referred Address ,[place], [place],[address] Referred Provider Specialty Physical The rapist Referral [...] ized section and content) DATE CREATED AUTHOR 09/08/2021 [facility] DATE CREATED AUTHOR AUTHOR'S ORGANIZ ATION 01/24/2023 [facility] DATE CREATED AUTHOR AUTHOR'S ORGANIZ ATION 06/18/2023 [facility] [employer] [facility] DATE CREATED AUTHOR AUTHOR'S ORGANIZ ATION 08/11/2023 [facility] DATE CREATED AUTHOR AUTHOR'S ORGANIZ ATION 08/31/2023 [facility] DATE CREATED AUTHOR AUTHOR'S ORGANIZ ATION 11/30/2024 [facility] DATE CREATED AUTHOR AUTHOR'S ORGANIZ ATION 01/18/2025 [facility] DATE CREATED AUTHOR AUTHOR'S ORGANIZ ATION 01/23/2025 [facility] DATE CREATED AUTHOR AUTHOR'S ORGANIZ ATION 01/24/2025 [facility] REASON FOR VISIT (unrecogniz ed section and content) Reason Onset Date Comments EMG 01/13/2023 Specialty Diagnoses / Procedures Referred By Deb t Referred To Contact [facility] Diagnoses Radiculopathy of lumbar region S/P lumbar fusion Compression of common peroneal nerve of left lower extremity Procedures EMG(NEURO/NI) NERVE CONDUCTION STUDIES 9-10 STUDIES Shea Plasencia APRN.BLOCK TRADER [address] [place] [address] [facility] [place] [address] [place] [address] Referral ID Status Reason Start Date Expiration Date V isits Requested Visits Authorized [id number] Closed Auto-Generate d Referral 01/06/2023 09/12/2023 1 1 Specialty Diagnoses / Procedures Referred By Deb juarez Referred To Contact CT IMAGING Diagnoses Radiculopathy of lumbar region Procedures CT LUMBAR SPINE WO IVCON CT LUMBAR SPINE W/O CONTRAST MATERIAL Shea Plasencia APRN.BLOCK TRADER [address] [place] [address] Ct Imaging Referral ID Status Reason Start Date Expiration Date Visits Requested Visits Authorized [id number] Pending Review Auto-Genera mejia Referral Patient Cleared - Admin/Chair man/Directo r advise to proceed 01/05/2023 02/04/2024 1 1 Reason Comments Refill Request Specialty Diagnoses / Procedures Referred By Deb t Referred To Contact Orthopedics Diagnoses Effusion of left knee Tear of medial meniscus of right knee, current, unspecified tear type, initial encounter Procedures CONSULT PANEL TO ORTHOPAEDICS OFFICE/OUTPATIENT [facility] 60-74 MINUTES Shea Plasencia APRN.BLOCK TRADER [address] [phone] Referral ID Status Reason Start Date Expiration Date V isits Requested Visits Authorized [id number] Closed PCP Requested Referral 01/13/2023 01/13/2024 1 1 Reason Comments Patient Question Results labs Reason Comments Follow Up Medication Update Specialty Diagnoses / Procedures Referred By Contac t Referred To Contact Pain Management Diagnoses Left leg pain Myofascial pain Spasm of muscle Procedures CONSULT TO PAIN MGT OFFICE/OUTPATIENT [facility] 60-74 MINUTES Shea Plasencia APRN.BLOCK TRADER [address] [place] [address] Referral ID Status Reason Start Date Expiration Date V isits Requested Visits Authorized [id number] Closed PCP Requested Referral 03/02/2023 03/01/2024 1 1 Reason Comments Nurse Triage Call TENS unit informatio n Reason Comments New Reason Comments Follow Up Reason Comments Patient Question Pain Reason Comments New Patient Reason Comments Back Pain Reason Comments Chronic Pain Stress Specialty Diagnoses / Procedures Referred By Contac t Referred To Contact [facility] [place] Diagnoses History of left knee replacement Chronic pain of left knee Bipolar 1 disorder (HCC) Procedures CONSULT TO [facility]) OFFICE/OUTPATIENT [facility] 60-74 MINUTES Fuad Pierce PA-C [address] [place] [address] Referral ID Status Reason Start Date Expiration Date Visits Requested Visits Authorized [id number] Pending Review PCP Requested Referral 3 06/27/2024 1 1 Reason Comments Follow-up Loose TKR Specialty Diagnoses / Procedures Referred By Contac t Referred To Contact Radiology Diagnoses Left knee pain, unspecified chronicity Procedures XR knee left 3 views Nakul Sosa MD [address] [facility], [address] [place] [address] Referral ID Status Reason Start Date Expiration Date Visits Requested Visits Authorized [id number] Authorized Perform Procedure 05/23/2024 05/23/2025 1 1 Reason Comments New Patient Visit LT KNEE, TKR 2021 W/ DR. JHA 2ND OPINION XRAY TODAY Reason Comments Pain Reason Comments Pain Xrays today Care Teams (unrecognized sec tion and content) Team Status: Active Member Role Status Dates PHYSICIAN NO FAMILY Primary Care Provider Active Team Status: Inactive Member Role Status Dates PHYSICIAN NO FAMILY Primary Care Provider Active Jelena Gregorio Jr, DO Attending Provider Active Team Status: Inactive Member Role Status Dates PHYSICIAN NO FAMILY Primary Care Provider Active Trey Garrido MD Attending Provider Active Team Status: Inactive Member Role Status Dates Jelena Gregorio Jr, DO Attending Provider Active NON [...] Shanda Witt , LeonardD Other Provider Active Fish Net Maker Relationship Specialty Start Date End Date [address] [address] PCP - General Family Medicine 07/26/19 George Chaparro, DO [address] [phone] Referring Neurology 07/26/19 Raisa Cabrera PA-C [address] [address] Referring Neurology 02/17/21 Fish Net Maker Relationship Specialty Start Date End Date [address] [address] PCP - General Family Medicine 07/26/19 George Chaparro, DO [address] [phone] Referring Neurology 07/26/19 Raisa Cabrera PA-C [address] [address] Referring Neurology 02/17/21 Fish Net Maker Relationship Specialty Start Date End Date [address] [address] PCP - General Family Medicine 07/26/19 George Chaparro, DO [address] [place] [address], [place] [address] Referring Neurology 07/26/19 Raisa Cabrera PA-C [address] [place] [address], [place] [address] Referring Neurology 02/17/21 Fish Net Maker Relationship Specialty Start Date End Date [facility] [address] [address] PCP - General Family Medicine 07/26/19 George Chaparro, DO [address] [place] [address], [place] [address] Referring Neurology 07/26/19 Raisa Cabrera PA-C [address] [place] [address], [place] [address] Referring Neurology 02/17/21 Fish Net Maker Relationship Specialty Start Date End Date [facility] [address] [address] PCP - General Family Medicine 07/26/19 George Chaparro, DO [address] [place] [address], [place] [address] Referring Neurology 07/26/19 Raisa Cabrera PA-C [address] [place] [address], [place] [address] Referring Neurology 02/17/21 Fish Net Maker Relationship Specialty Start Date End Date [facility] [address] [address] PCP - General Family Medicine 07/26/19 George Chaparro, DO [address] [place] [address] Referring Neurology 07/26/19 Raisa Cabrera PA-C [address] [place] [address] Referring Neurology 02/17/21 Fish Net Maker Relationship Specialty Start Date End Date Russel Андрей Dick [address] [place] [address] PCP - General Family Medicine 07/26/19 George Chaparro DO [address] [place] [phone] Referring Neurology 07/26/19 Raisa Cabrera PA-C [address] [place] [address] Referring Neurology 02/17/21 Fish Net Maker Relationship Specialty Start Date End Date Russel Андрей Jennings [address] [place] [address], [place] [address] PCP - General Family Medicine 07/26/19 George Chaparro DO [address] [place] [address] Referring Neurology 07/26/19 Raisa Cabrera PA-C [address] [place] [address] Referring Neurology 02/17/21 Fish Net Maker Relationship Specialty Start Date End Date Russel Андрей Jennings [address] [place] [address], [place] [address] PCP - General Family Medicine 07/26/19 George Chaparro DO [address] [place] [address] Referring Neurology 07/26/19 Raisa Cabrera PA-C [address] [place] [address] Referring Neurology 02/17/21 Fish Net Maker Relationship Specialty Start Date End Date MedardoАндрей oropeza [address] [place] [address] PCP - General Family Medicine 07/26/19 George Chaparro DO [address] [place] [address] Referring Neurology 07/26/19 Raisa Cabrera PA-C [address] [address] Referring Neurology 02/17/21 Fish Net Maker Relationship Specialty Start Date End Date Андрей Goode [address] [place] [address] PCP - General Family Medicine 07/26/19 George Chaparro DO [address] [phone] Referring Neurology 07/26/19 Raisa Cabrera PA-C [address] [place] [address] Referring Neurology 02/17/21 Fish Net Maker Relationship Specialty Start Date End Date Андрей Goode [address] [place] [address] PCP - General Family Medicine 07/26/19 George Chaparro DO [address] [phone] Referring Neurology 07/26/19 Raisa Cabrera PA-C [address] [address] Referring Neurology 02/17/21 Fish Net Maker Relationship Specialty Start Date End Date RusselАндрей Dick [address] [place] [address] PCP - General Family Medicine 07/26/19 George Chaparro DO [address] [phone] Referring Neurology 07/26/19 Raisa Cabrera PA-C [address] [address] Referring Neurology 02/17/21 Fish Net Maker Relationship Specialty Start Date End Date Андрей Goode [address] [place] [address] PCP - General Family Medicine 07/26/19 George Chaparro DO [address] [phone] Referring Neurology 07/26/19 Raisa Cabrera PA-C [address] [place] [address] Referring Neurology 02/17/21 Fish Net Maker Relationship Specialty Start Date End Date Russel Андрей Jennings [address] [place] [address] PCP - General Family Medicine 07/26/19 George Chaparro DO [address] [phone] Referring Neurology 07/26/19 Raisa Cabrera PA-C [address] [place] [address] Referring Neurology 02/17/21 Fish Net Maker Relationship Specialty Start Date End Date Андрей Goode [address] [place] [address] PCP - General Family Medicine 07/26/19 George Chaparro DO [address] [phone] Referring Neurology 07/26/19 Raisa Cabrera PA-C [address] [address] Referring Neurology 02/17/21 Fish Net Maker Relationship Specialty Start Date End Date Андрей Goode [address] [place] [address] PCP - General Family Medicine 07/26/19 George Chaparro DO [address] [phone] Referring Neurology 07/26/19 Raisa Cabrera PA-C [address] [place] [address] Referring Neurology 02/17/21 Fish Net Maker Relationship Specialty Start Date End Date Андрей Goode [address] [place] [address] PCP - General Family Medicine 07/26/19 George Chaparro DO [address] [address] Referring Neurology 07/26/19 Raisa Cabrera PA-C [address] [address] Referring Neurology 02/17/21 Fish Net Maker Relationship Specialty Start Date End Date Generic Provider, No [place] [address] PCP - General Office Machine Mechanic 05/23/24 Fish Net Maker Relationship Specialty Start Date End Date Generic Provider, No [place] [address] PCP - General Office Machine Mechanic 05/23/24 Fish Net Maker Relationship Specialty Start Date End Date Generic Provider, No [place] [address] PCP - General Office Machine Mechanic 05/23/24 Fish Net Maker Relationship Specialty Start Date End Date Jamey Lucero MD [facility] [place] [address] PCP - General Family Medicine 07/28/23 Hayde Ivory MD [facility] [place] [address] Referring Physician Family Medicine 07/28/23 Fish Net Maker Relationship Specialty Start Date End Date Jamey Lucero MD [address] [place] [address] PCP - General Family Medicine 07/28/23 Hayde Ivory MD [address] [place] [address] Referring Physician Family Medicine 07/28/23 Fish Net Maker Relationship Specialty Start Date End Date Jamey Lucero MD [address] [place] [address] PCP - General Family Medicine 07/28/23 Hayde Ivory MD [address] [place] [address] Referring Physician Family Medicine 07/28/23 Fish Net Maker Relationship Specialty Start Date End Date Jamey Lucero MD [address] [place] [address] PCP - General Family Medicine 07/28/23 Hayde Ivory MD [address] [place] [address] Referring Physician Family Medicine 07/28/23 Fish Net Maker Relationship Specialty Start Date End Date Generic Provider, No [place] [address] PCP - General Office Machine Mechanic 05/23/24 Fish Net Maker Relationship Specialty Start Date End Date Generic Provider, No [place]igned [place] [address] PCP - General Office Machine Mechanic 05/23/24 Goals (unrecognized section and content) Goals may be documented in a n alternate section Source Comments (unrecognize d section and content) In the event this informatio n is protected by the Federal Confidentiality of Alcohol and Drug Abuse Patient Records regulations: The Federal rules restrict any use of the information to criminally investigate or prosecute any alcohol or drug abuse patient.[facility] HospitalIn the event this information is protected by the Federal Confidentiality of Alcohol and Drug Abuse Patient Records regulations: The Federal rules restrict any use of the information to criminally investigate or prosecute any alcohol or drug abuse patient.[facility] HospitalIn the event this information is protected by the Federal Confidentiality of Alcohol and Drug Abuse Patient Records regulations: The Federal rules restrict any use of the information to criminally investigate or prosecute any alcohol or drug abuse patient.[facility] HospitalIn the event this information is protected by the Federal Confidentiality of Alcohol and Drug Abuse Patient Records regulations: The Federal rules restrict any use of the information to criminally investigate or prosecute any alcohol or drug abuse patient.[facility] HospitalIn the event this information is protected by the Federal Confidentiality of Alcohol and Drug Abuse Patient Records regulations: The Federal rules restrict any use of the information to criminally investigate or prosecute any alcohol or drug abuse patient.[facility] HospitalIn the event this information is protected by the Federal Confidentiality of Alcohol and Drug Abuse Patient Records regulations: The Federal rules restrict any use of the information to criminally investigate or prosecute any alcohol or drug abuse patient.[facility] HospitalIn the event this information is protected by the Federal Confidentiality of Alcohol and Drug Abuse Patient Records regulations: The Federal rules restrict any use of the information to criminally investigate or prosecute any alcohol or drug abuse patient.[facility] HospitalIn the event this information is protected by the Federal Confidentiality of Alcohol and Drug Abuse Patient Records regulations: The Federal rules restrict any use of the information to criminally investigate or prosecute any alcohol or drug abuse patient.[facility] HospitalIn the event this information is protected by the Federal Confidentiality of Alcohol and Drug Abuse Patient Records regulations: The Federal rules restrict any use of the information to criminally investigate or prosecute any alcohol or drug abuse patient.[facility] HospitalIn the event this information is protected by the Federal Confidentiality of Alcohol and Drug Abuse Patient Records regulations: The Federal rules restrict any use of the information to criminally investigate or prosecute any alcohol or drug abuse patient.[facility] HospitalIn the event this information is protected by the Federal Confidentiality of Alcohol and Drug Abuse Patient Records regulations: The Federal rules restrict any use of the information to criminally investigate or prosecute any alcohol or drug abuse patient.[facility] HospitalIn the event this information is protected by the Federal Confidentiality of Alcohol and Drug Abuse Patient Records regulations: The Federal rules restrict any use of the information to criminally investigate or prosecute any alcohol or drug abuse patient.[facility] HospitalIn the event this information is protected by the Federal Confidentiality of Alcohol and Drug Abuse Patient Records regulations: The Federal rules restrict any use of the information to criminally investigate or prosecute any alcohol or drug abuse patient.[facility] ClinicIn the event this information is protected by the Federal Confidentiality of Alcohol and Drug Abuse Patient Records regulations: The Federal rules restrict any use of the information to criminally investigate or prosecute any alcohol or drug abuse patient.[facility] HospitalIn the event this information is protected by the Federal Confidentiality of Alcohol and Drug Abuse Patient Records regulations: The Federal rules restrict any use of the information to criminally investigate or prosecute any alcohol or drug abuse patient.[facility] HospitalIn the event this information is protected by the Federal Confidentiality of Alcohol and Drug Abuse Patient Records regulations: The Federal rules restrict any use of the information to criminally investigate or prosecute any alcohol or drug abuse patient.[facility] HospitalIn the event this information is protected by the Federal Confidentiality of Alcohol and Drug Abuse Patient Records regulations: The Federal rules restrict any use of the information to criminally investigate or prosecute any alcohol or drug abuse patient.[facility] HospitalIn the event this information is protected by the Federal Confidentiality of Alcohol and Drug Abuse Patient Records regulations: The Federal rules restrict any use of the information to criminally investigate or prosecute any alcohol or drug abuse patient.[facility] HospitalIn the event this information is protected by the Federal Confidentiality of Alcohol and Drug Abuse Patient Records regulations: The Federal rules restrict any use of the information to criminally investigate or prosecute any alcohol or drug abuse patient.[facility] HospitalIn the event this information is protected by the Federal Confidentiality of Alcohol and Drug Abuse Patient Records regulations: The Federal rules restrict any use of the information to criminally investigate or prosecute any alcohol or drug abuse patient.[facility] HospitalIn the event this information is protected by the Federal Confidentiality of Alcohol and Drug Abuse Patient Records regulations: The Federal rules restrict any use of the information to criminally investigate or prosecute any alcohol or drug abuse patient.[facility] HospitalIn the event this information is protected by the Federal Confidentiality of Alcohol and Drug Abuse Patient Records regulations: The Federal rules restrict any use of the information to criminally investigate or prosecute any alcohol or drug abuse patient.[facility] HospitalIn the event this information is protected by the Federal Confidentiality of Alcohol and Drug Abuse Patient Records regulations: The Federal rules restrict any use of the information to criminally investigate or prosecute any alcohol or drug abuse patient.[facility] HospitalIn the event this information is protected by the Federal Confidentiality of Alcohol and Drug Abuse Patient Records regulations: The Federal rules restrict any use of the information to criminally investigate or prosecute any alcohol or drug abuse patient.[facility] FOR RECORDS PERTAINING TO PATIENTS WHO ARE [...] BE BASED ON THE PRIMARY CLINICAL RECORDS. [employer] [facility]. provides no warranty or guarantee of the accuracy or completeness of information in this document.
== END 2025-01-24 20:16 | disposition home or self-care (01) ==
LOC: SLEEP 20:15
PROVIDERS: PCP Nurse Practitioner Family; Visit Provider Nurse Practitioner Family
DX: G47.33 Obstructive sleep apnea (adult) (pediatric) (principal); R06.83 Snoring
CPT/HCPCS: 95810

== ENCOUNTER 2025-02-26 19:56 | Outpatient (OUT) | payer OTHER, SELFPAY ==
--- OUTSIDE RECORDS SUMMARY | 2019-11-03 04:41 | XMS_ITS | Continuity of Care Document ---
Author Organization [facility] Address [address] [place] [address] Phone Care Team Providers Care Eligibility Supervisor Name Role Phone Андрей Goode DO Unavailable Unavailable Allergies, Adverse Reactions, Alerts Substance Reaction Status Criticality tramadol Active No Information KETOROLAC TROMETHAMINE Active No In formation Penicillins Hives/Skin Rash Active No Informati on Medications Medication Instructions Dosage Effective Dates (start - stop) Status Comments Stomach Relief Max Strength 525 mg/15 mL oral suspension take 1 tablespoon by oral route 6 times every day 1 tablespoon - Active Carafate 100 mg/mL oral suspension take 10 milliliter by oral route 4 times every day on an empty stomach 1 hour before meals and at bedtime 1 G - Active lamotrigine 25 mg tablet take 1 tablet by oral route 2 times every day - Active Vraylar 4.5 mg capsule take 1 capsule by oral route every day 4.5 MG - Active lithium carbonate 600 mg capsule take 1 capsule by oral route 2 times every day 600 MG - Active Seroquel 300 mg tablet take 2 tablets by oral route every day at bedtime - Active Procedures Procedure Date OFFICE/OUTPATIENT VISIT, EST OFFICE/OUTPATIENT VISIT, EST OFFICE/OUTPATIENT VISIT, EST DRUG SCREENING FENTANYL DRUG TEST [facility] DIR OPT OBS OFFICE/OUTPATIENT VISIT, EST DRUG SCREENING FENTANYL DRUG TEST [facility] DIR OPT OBS Extract; Erupted Th/exposted Rt 016 Upmmrhbsg-ehyztkpbmn-qycj Additional Aug Epvkljiwx-expktmtauz-wxug Additional Aug Jlfkjcqif-ysfyvbftiu-qunb Additional Aug Oral Hygiene Instruction Intraoral-periapical 1st Film 6 Limited Oral Eval Advance Directives Directive Yes / No Effective Date File Name No Information Encounters Encounter Description Practice Location Reason(s) For Visit Diagnoses Date Provider Providers Copied on Encounter [facility], [address] [place] [address], [id number] , [place] tel: [phone] [facility] No Information 0 Pavlock DO Max. [address] [place] [address], [id number] , [place]. tel: [phone] [facility], [address] [place] [address], [id number] , [place] tel: [phone] [facility] No Information 0 Pavlock DO Max. [address] [place] [address], [id number] , [place]. tel: [phone] OFFICE/OUTPA TIENT VISIT, [facility], [address] [place] [address], [id number] , [place] tel: [phone] [facility] f/u hospital (chief complaint)A bdominal pain (chief complaint) EsophagitisChronic bilateral low back pain, with sciatica presence unspecified 0 Pavlock DO Max. [address] [place] [address], [id number] , [place]. tel: [phone] OFFICE/OUTPA TIENT VISIT, [facility], [address] [place] [address], [id number] , [place] tel: [phone] [facility] F/U MED WEANING (chief complaint) Body mass index (BMI) 26.0-26.9, adultSeizureInsomnia , unspecified typeElevated liver enzymes 9 Pavlock DO Max. [address] [place] [address], [id number] , [place]. tel: [phone] OFFICE/OUTPA TIENT VISIT, [facility], [address], [place], [id number] , [place] tel: [phone] [facility] med refill (chief complaint)D RUG SCREEN (chief complaint) Body mass index (BMI) 26.0-26.9, adultChronic bilateral low back pain, with sciatica presence unspecifiedIntracran ial arachnoid cystFlank pain, acute [facility] Max[facility] [address], [place], [id number] , [place]. tel: [phone] [facility], [address] [place] [address], [id number] , [place] tel: [phone] [facility] HURT/DISCOM FORT (chief complaint)D RUG SCREEN (chief complaint) Body mass index (BMI) 26.0-26.9, adultFlank pain, acuteChronic bilateral low back pain, with sciatica presence unspecified [facility] DO Max. [address] [place] [address], [id number] , [place]. tel: [phone] [facility], [address] [place] [address], [id number] , [place] tel: [phone] [facility] MED REFILL (chief complaint)D rug Screen (chief complaint) Body mass index (BMI) 28.0-28.9, adultOpioid use, unspecified, uncomplicatedIntracr anial arachnoid cystChronic bilateral low back pain, with sciatica presence unspecified 9 [facility] DO Max. [address], [place], [id number] , [place]. tel: [phone] OFFICE/OUTPA TIENT VISIT, [facility], [address], [place], [id number] , [place] tel: [phone] [facility] Medication refill (chief complaint)D rug Screen (chief complaint) Body mass index (BMI) 26.0-26.9, adultChronic bilateral low back pain, with sciatica presence unspecifiedOther chronic painAnxiety with depressionIntracrani al arachnoid cyst Dec- 9 [facility] DO Max. [address], [place], [id number] , [place]. tel: [phone] [facility], [address], [place], [id number] , [place] tel: [phone] [facility] med refill (chief complaint) Body mass index (BMI) 27.0-27.9, adultChronic bilateral low back pain, with sciatica presence unspecifiedAnxiety with depression 9 [facility] DO Max. [address], [place], [id number] , [place]. tel: [phone] [facility], [address] [place] [address], [id number] , [place] tel: [phone] [facility] EST CARE (chief complaint) Body mass index (BMI) 27.0-27.9, adultSeizureIntracra nial arachnoid cystChronic bilateral low back pain, with sciatica presence unspecifiedOther chronic painAnxiety with depression 9 [facility] DO Max. [address], [place], [id number] , [place]. tel: [phone] [facility], [address], [place], [id number] , [place] tel: [phone] [facility] Consult (chief complaint) No Information 9 [facility] DO Max. [address], [place], [id number] , [place]. tel: [phone] [facility], [address], [place], [id number] , [place] tel: [phone] Dental Clinic extraction (chief complaint) Encounter for screening for dental disorders 6 Mandujano Vega Reyes. [address] [place] [address], [id number], [place]. tel: [phone] [facility], [address] [place] [address], [id number] , [place] tel: [phone] Dental Clinic dental limited (chief complaint) Encounter for screening for dental disorders 6 uLke Concepcion. [address] [place] [address], [id number] , . tel:[phone] Family History Family Member Type Diagnosis Age At Onset Mother Problem (finding) Alive and well Father Problem (finding) Alive and well Sister Problem (finding) Alive and well Payers Payer name Insurance type Covered constitution party ID Authoriza tion(s) Medicaid [facility] [id number] Social History Type Description Quantity Date Captured Comments Alcohol Use Details Unknown Caffeine Use Details Unknown Tobacco Use Status No Information Smoking Status No Information Sex Male Sexual Orientation Straight or heterosexual Oct Gender Identity Male Chief Complaint And Reason For Visit No Information Reason For Referral Reason For Referral No Information Plan Of Treatment Date Type Action Status Goal Dietary management education , guidance, and counseling completed Goal Dietary management education , guidance, and counseling completed Goal Dietary management education , guidance, and counseling completed Goal Dietary management education , guidance, and counseling completed Goal Tobacco cessation counseling completed Goal Dietary management education , guidance, and counseling completed Goal Tobacco cessation counseling completed Goal Dietary management education , guidance, and counseling completed Goal Tobacco cessation counseling completed Goal Tobacco cessation counseling completed Goal Dietary management education , guidance, and counseling completed Referral Ordered: Gastroenterology (related to Esophagitis) ordered Referral Ordered: Pain Medicine (related to Chronic bilateral low back pain, with sciatica presence unspecified) ordered Referral Ordered: Referrals: Gastroenterology ordered Referral Ordered: Physical Therapy (related to Chronic bilateral low back pain, with sciatica presence unspecified) ordered Referral Ordered: CT Abd Pel W/& W/O Contrast ordered Referral Ordered: Referrals: Pain Medicine ordered Referral Referred To: Physical Therapy Ordered: Referrals: Physical Therapy ordered Referral Ordered: Referrals: Neurology ordered History Of Present Illness Encounter Date Complaint History Of Juve nt Illness Abdominal pain The severity of the problem is moderate. The symptoms are intermittent. The location is right upper quadrant. The reports radiation to the back and chest. The quality of the pain is stabbing. Aggravating factors include exercise. Symptoms are relieved by change in position. Symptoms are not relieved by analgesics, antacids, bowel movement, eructation, OTC meds, proton pump inhibitors, rest or vomiting. Associated symptoms include back pain, bloating, change in appetite, heartburn and nausea. Pertinent negatives include blood in stool, constipation, diaphoresis, diarrhea, dizziness, dyspnea, fever, flank pain, flatulence, hematuria, jaundice, lightheadedness, myalgia, rash, vomiting, weight gain and weight loss. f/u hospital Pt here today fo r f/u from hospital. States he has had right sided ABD pain and N/V. Reports that hospital said it was not his gallbladder but he is still having pain. Unable to keep food down but trying to drink water. Last BM was 2 days ago. DOMINIQUE Del Toro F/U MED WEANING Pt here today to follow up for medication weaning. Pt states he went to the ER and his ammonia level was at 50. He said the doctor told him that it could be from the Depakote. Pt states that they are going to start taking him off the Depakote and put him on another medication Lamictal 25 mg BID for 14 days Pt states he has just barely been off of the pain medication . He states his last dose was on Wednesday. Asked if he was given any while in hospital but patient doesnt recall because they gave him so much stuff there. Pt states it has been going as best as its going to get being off the medication . PHQ indicates severe depression. I asked patient if depression has gotten better since he has been released from hospital and he states he cant tell himself that and he has good days and bad days. OARRS completed, last filled Xanax 03/[address] 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 PT states the Flomax worked really well for him. He would like a refill on it. OARRS completed, last filled Xanax 02/[address] Horne, Oxymorphone 01/10 & [place] 01/09TGrodhira Preston discuss Pt flying and we told Pt as long as the plain is pressurized there is not a problem. 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 Pt states it started Wednesday night. He states he has pressure and was given an antibiotic that did not help. He states he has a headache that he can not get rid of. PT states it hurts on L side of head & lower neck. He has tried hot/cold and they did not help. He states he went to neurosurgery on Wednesday and they said no surgery and with his symptoms call his neurologist. He states Dr. Chaparro cant get him in till Next month. Pt states Dr. wilfred Boggs (Neurosurgeon) told him to go to the ER or call his PCP to get in. Pt states he is concerned. Pt states he has increased pain. He is not sure if it is due to the cyst or not. He states he is feeling different. Pt states his increased pain is in his neck, lower back and wraps around to his front side. He states his lower stomach hurts and his urine stinks really bad. Pt states he stopped taking Spironolactone because he did not like it. He states he could not take the medication and states he took it a couple of days and it did not interact well with his other medications. OARRS completed, last filled Oxymorphone 01/10, [place] 01/09, Xanax from Dr. Horne 01/01.TGrodhira Preston had a long discussion about Pt pain and he states the medications he is on is just not work any more, that during the day he get releif but at night his pain is keeping he up so he did try buprenorphine and it did not help much. Pt states he just does not know what to do. Drug Screen Rapid urine drug screen performed, pt + for BUP & BENZO, pt prescribed Oxymorphone & Percocet. Sending out urine. Fentanyl negTGrodhira MARTINEZ MED REFILL Pt here today fo r medication refills. Pt states he has alot of questions today for the doctor. 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 Pt is seeing a [place] neurologist and a neuro here. He said insurance is not going for it so wants your opinion on which to pick. Pt states he got a call from [facility] neurosurgery. He said that once they get his profile put together they will call him to set up an apt. He said [facility] is going to send those records. Pt is having more than normal pain on the L side of the face in the voodoo area, down to the ear/jaw. Pt states he is having alot of pressure and it feels like there is something pushing in the bottom ear area . Pt states this started around 2 weeks ago. Asked patient how depression is and he said its getting better, this is being managed by Dr. Ravi completed, last filled Xanax 01/[address] Horne, Oxymorphone 12/13 & [place] 12/12TGrodi MICHELLE ,above was reviewed and agreed with Drug Screen Urine drug scree n shows positive for Oxy, BZO adn MOPFentanyl Neg-Michelle Serra. Medication refill Patient here f or medication refill. Patient did have [facility] apt 10/27/18 and has next apt 12/13/18.OARRS completed. Last fill-Xanax 1mg 12/04/18, Oxymorphone 15mg 11/15/18 & Hydroco/[place]ug[place] 10/325mg 11/14/18.Michelle Serra.Pt states he is just getting get over the flu and still has the cough. med refill Pt here today fo r medication refill. Pt states he went and seen DR. Chaparro 2 weeks ago for Neurology and he had an EEG done with him. Pt states he goes back to see provider next week. OARRS completed, last filled Xanax 11/03, Oxymorphone 10/18, Wake[place] 10/17TGrodi LPNPt states he just had his EEG with ROBERTO and has appointment next week [facility] Pt here today to establish care and medication refills. Pt was previous pt of Dr. Goode at his [place] office. Pt brought in results of recent diagnostic tests. OARRS completed, last filled 08/18 & 08/09.TGrodi LPNPt is continuing to having seizure was in Er , again and is changing neurologist and neurosurgeon. Consult extraction continue with tr eatment dental limited pt has pain in l ower left 17,18. wants to see an oral surgeon Functional Status Date Functional Assessmen t No Information Instructions Date Instruction Additional Infor molina Giving encouragement to exercise Related to Body mass index (BMI) 26.0-26.9, adult Dietary management e ducation, guidance, and counseling Related to Body mass index (BMI) 26.0-26.9, adult Dietary management e ducation, guidance, and counseling Related to Body mass index (BMI) 26.0-26.9, adult Giving encouragement to exercise Related to Body mass index (BMI) 26.0-26.9, adult Dietary management e ducation, guidance, and counseling Related to Body mass index (BMI) 26.0-26.9, adult Giving encouragement to exercise Related to Body mass index (BMI) 26.0-26.9, adult Dietary management e ducation, guidance, and counseling Related to Body mass index (BMI) 28.0-28.9, adult Giving encouragement to exercise Related to Body mass index (BMI) 28.0-28.9, adult Dietary management e ducation, guidance, and counseling Related to Body mass index (BMI) 26.0-26.9, adult Giving encouragement to exercise Related to Body mass index (BMI) 26.0-26.9, adult Dietary management e ducation, guidance, and counseling Related to Body mass index (BMI) 27.0-27.9, adult Giving encouragement to exercise Related to Body mass index (BMI) 27.0-27.9, adult Giving encouragement to exercise Related to Body mass index (BMI) 27.0-27.9, adult Dietary management e ducation, guidance, and counseling Related to Body mass index (BMI) 27.0-27.9, adult Assessments Type Assessment Date No Information Patient Care Teams Name Effective Dates (start - stop) Status Members No Information
--- OUTSIDE RECORDS SUMMARY | 2024-01-24 11:15 | XMS_ITS ---
Author Organization [facility] Address [address] [place] [address] Care Team Providers Care Dispute Resolution Specialist Name Role Phone Alfreda Keller Primary Care Provider [phone] Francesca Garza [facility] [phone] REASON FOR VISIT PROPHY Encounters Encounter Location Date Provider Diagnosis [facility] [address] [place] [address] 01/24/2024 Francesca Garza Plan Of Treatment No Information Progress Notes * TAIWOBRIANOB:1985 ( 39 yo M)Acc No.[id number]:01/24/2024 Patient: LATIA ROOT Provider: Chandrakant Garza :1985 A ge:38 Y S ex:Male Date:01/24/2024 Address:[address] [id number] Pcp:Alfreda Rosen Subjective: * Chief Complaints: * 1 . PROPHY. * Medical History: Objective: * Vitals: Assessment: Plan: * Treatment: * Images: * Electronic signature of Nesha Garza on 02/26/2025 at 07:59 PM EDT Sign off status: Pending * Provider: Chandrakant Garza Date: 01/24/2024 Generated for Printi ng/Faxing/eTransmitting on: 0 02/26/2025 07:59 PM EDT
--- OUTSIDE RECORDS SUMMARY | 2024-12-19 09:00 | XMS_ITS ---
Author Organization [facility] in [place] Address [address] [place] [address] Care Team Providers Care Framing Mill Supervisor Name Role Phone Hayde Ivory Primary Care Provider [phone] Allergies Allergen (clinical drug ingredient) Drug/Non Drug Allergy documented on EMR Reaction Allergy Type Onset Date Status ketorolac Ketorolac Anxiety Drug Allergy Active tramadol traMADol Seizure Drug Allergy Active Penicillin Swelling Drug Allergy Active Reason For Referral Reason requesting sleep brittaney dy Diagnosis 1 Snoring (R06.83) Referral Organization [facility] Referring Provider First Name Hayde Referring Provider Last Name Cachorro Referring Provider Speciality Family Med icine Referred Provider Chana Purcell Referred Provider Specialty Sleep Medici ne Referral Priority Routine REASON FOR VISIT Presents to office alone. Psychiatry wants him to have a sleep study done, Also follow up on diabetes, Recently had 2 uncle diagnosed with rectal cancer. Medications Medication SIG (Take, Route, Frequency, Duration) Notes Start Date End Date Status DULoxetine HCl 60 MG 1 capsule Orally Once a day Active LaMICtal 100 MG 1 tablet Orally TID Active Methocarbamol 750 MG 1 tablet Orally QID Not-Taking Nabumetone 500 MG 1 tablet Orally Twice a day Not-Taking Omeprazole 40 MG TAKE 1 CAPSULE BY [facility] EVERY DAY for 30 days Active Imitrex 100 MG 1 tablet as needed, may take second dose at least 2 hours after first dose up to 2 tablets per day as needed Orally Once a day for 30 days 12/19/2024 Active SEROquel 400 MG 2 tablet Orally Once a day Active traZODone HCl 100 MG 1 tablet at bedtime Orally Once a day Active Social History Tobacco Use: Social History Observation Description Date Details (start date - stop date) Never Smoker NA - NA Tobacco Control (Standard) Question Answer Notes Tobacco use: Nonsmoker Problems Problem Type SNOMED Code ICD Code Onset Dates Problem Status W/U Status Risk Notes Problem Attention deficit hyperactivity disorder (938235811) ADHD (attention deficit hyperactivity disorder) (F90.9) Active confirmed Problem Anxiety state (404211507) Severe anxiety (F41.9) Active confirmed Problem Severe recurrent major depression without psychotic features (58225883) Depression, major, severe recurrence (F33.2) Active confirmed Problem Arachnoid cyst (45100676) Arachnoid cyst (G93.0) Active confirmed Problem Word finding difficulty (716618291) Word finding difficulty (R47.89) Active confirmed Problem Memory loss (79589627) Memory loss (R41.3) Active confirmed Problem Migraine (44441160) Migraine (G43.909) Active confirmed Vital Signs Weight 248.8 lbs 12/19/2024 Height 75 in 12/19/2024 Blood pressure systolic 122 mm Hg 12/20/19 25 Blood pressure diastolic 80 mm Hg 025 BMI 31.09 kg/m2 12/19/2024 Encounters Encounter Location Date Provider Diagnosis [facility] [address] [place] [address] 12/19/2024 Haydeshorty Murraymer Snoring R06.83 ; Migraine G43.909 and Pre-diabetes R73.03 Assessments Encounter Date Diagnosis (ICD Code) Assessment Notes Treatment Notes Treatment Clinical Notes Section Notes 12/19/2024 Snoring (ICD-10 - R06.83) sleep study 12/19/2024 Migraine (ICD-10 - G43.909) send triptan going to [facility] for this 12/19/2024 Pre-diabetes (ICD-10 - R73.03) Plan Of Treatment Medication Medication Name Sig Start Date Stop Date Notes Imitrex 100 MG 1 tablet as needed, may take second dose at least 2 hours after first dose up to 2 tablets per day as needed Orally Once a day for 30 days 12/19/2024 Treatment Notes Assessment Notes Snoring sleep study Migraine send triptan going to [facility] for this Pending Test Test Name Order Date HEMOGLOBIN A1C (GLYCO) 12/19/2024 INSULIN, TOTAL 12/19/2024 Referrals Referral Date Details 12/19/2024 12/19/2024, [facility] sleep study, Chana Purcell Next Appt Details Follow Up: prn,1 Year, Basilio n: Progress Notes * Ana PETERSOB:1985 ( 39 yo M)Acc No.[id number]:12/19/2024 Progress Note Patient: Porter ROOT Provider: Daron Ivory ([facility] WARP TRUCKER :1985 A ge:39 Y S ex:Male Date:12/19/2024 Address:[address] [place], [place] [id number] Check In:12:57 PM ESTCheck O ut:01:32 PM EST Subjective: * Chief Complaints: * 1 . Presents to office alone. Psychiatry wants him to have a sleep study done. 2. Also follow up on diabetes. 3. Recently had 2 uncle diagnosed with rectal cancer.. * HPI: G eneral: snoring, gasping at night, sleep study wants BS labs rechecked having headaches 16 days out of the month, goes to bed early and helps ses psych fu Krysta for headaches. D epression Screening: PHQ-9 L ittle interest or pleasure in doing things?More than half the days F eeling down, depressed, or hopeless N early every day T rouble falling or staying asleep, or sleeping too much N early every day F eeling tired or having little energy N early every day P oor appetite or overeating N early every day F eeling bad about yourself or that you are a failure, or have let yourself or your family down N early every day T rouble concentrating on things, such as reading the newspaper or watching television N early every day M oving or speaking so slowly that other people could have noticed; or the opposite, being so fidgety or restless that you have been moving around a lot more than usual M ore than half the days T houghts that you would be better off or of hurting yourself in some way N early every day (Consider Suicide Assessment Risk) T otal Score 2 5 I nterpretation S evere Depression * ROS: G eneral/Constitutional: Anxiety a dmits, seeing psych. F ever d enies. H eadache a dmits frequent migraines. W eight loss d enies. O phthalmologic: Discharge d enies. E ye Pain d enies. I tching and redness d enies. E NT: Nasal discharge d enies. N cliff congestion d enies.?Sore throat d enies. C ardiovascular: Chest tightness/ heavy pressure d enies. R apid heart rate d enies. S welling of extremities d enies. C hest pain d enies. ? R espiratory: Productive cough d enies. S noring a dmits. C hest pain d enies. C ough d enies. S hortness of breath d enies. W heezing d enies. G astrointestinal: Abdominal pain d enies. C onstipation d enies. D ecreased appetite d enies. D iarrhea d enies. N ausea d enies. V omiting?denies. G enitourinary: Urinary incontinence d enies. P ainful urination d enies. M usculoskeletal: Back pain d enies. N sherrill pain d enies. M uscle aches d enies. S kin: Rash d enies. S kin lesion(s) d enies. ? * Active Problem List F90.9 ADHD (attention defi cit hyperactivity disorder) Modified On:12/19/2024U Status:confirmed R41.3 Memory loss Modified On:12/19/2024U Status:confirmed F41.9 Severe anxiety Modified On:12/19/2024U Status:confirmed G93.0 Arachnoid cyst Modified On:12/19/2024U Status:confirmed F33.2 Depression, major, s evere recurrence Modified On:12/19/2024U Status:confirmed R47.89 Word finding difficu lty Modified On:12/19/2024 Status:confirmed M17.11 Primary osteoarthrit is of right knee Modified On:03/02/2024U Status:confirmed M25.462 Effusion of left kne e Modified On:06/20/2024W/U Status:confirmed K21.9 GERD (gastroesophage al reflux disease) Modified On:05/22/2024W/U Status:confirmed R73.03 Pre-diabetes Modified On:06/15/2024W/U Status:confirmed G43.909 Migraine Modified On:12/19/2024/U Status:confirmed * Medical History: S eizure, ADHD (attention deficit hyperactivity disorder), Severe anxiety, Depression, major, severe recurrence, Arachnoid cyst, Word finding difficulty, Memory loss. * Surgical History: L eft Knee Replacement , Back Fusion , Gallbladder Removal . * Family History: F ather: alive. M other: alive. B rother(s): alive. S ister(s): alive. S on(s): alive. 1 brother(s) , 1 sister(s) - healthy. 1 son(s) - healthy. . * Social History: T obacco Use: T obacco Control (Standard) T obacco use: N onsmoker * Medications: T aking DULoxetine HCl 60 MG Capsule Delayed Release Particles 1 capsule Orally Once a day , Taking LaMICtal(lamoTRIgine) 100 MG Tablet 1 tablet Orally TID , Taking Omeprazole 40 MG Capsule Delayed Release TAKE 1 CAPSULE BY MOUTH EVERY DAY , Taking SEROquel(QUEtiapine Fumarate) 400 MG Tablet 2 tablet Orally Once a day , Taking traZODone HCl 100 MG Tablet 1 tablet at bedtime Orally Once a day , Not- Taking/PRN Methocarbamol 750 MG Tablet 1 tablet Orally QID , Not-Taking/PRN Nabumetone 500 MG Tablet 1 tablet Orally Twice a day , Medication List reviewed and reconciled with the patient * Allergies: P enicillin: Swelling, Ketorolac: Anxiety, traMADol: Seizure. Objective: * Vitals: W t:248.8lbs, Ht: 75 in, BP:122/80mm Hg, BMI:31.09Index, Ht-cm: 190.5 cm, Wt-k.85 kg. * Examination: G eneral Examinations: GENERAL APPEARANCE: a lert and oriented, i n no acute distress. EYES: c onjunctiva normal, sclera non-icteric. NOSE: n ormal external appearance. LUNGS: c lear to auscultation bilaterally. CARDIO: r egular rate and rhythm, S1, S2 normal. ABDOMEN: s oft, nontender. MUSCULOSKELETAL: G a, Gait and station normal. SKIN: w arm and dry, no suspicious lesions. ? Assessment: * Assessment: 1. S noring - R06.83 (Primary) 2 . M igraine - G43.909 3 .?Pre-diabetes - R73.03 Plan: * Treatment: 2. M igraine Start Imitrex Tablet, 100 MG, 1 tablet as needed, may take second dose at least 2 hours after first dose up to 2 tablets per day as needed, Orally, Once a day, 30 days, 10, Refills 3. Notes: send willie going to [facility] for this 3. P re-diabetes L AB: HEMOGLOBIN A1C (GLYCO) L AB: INSULIN, TOTAL * Preventive Medicine: Screenings/Counseling: B [place] ACTION PLAN Above Normal BMI Follow-up D ietary management education, guidance, and counseling See treatment section of progress note for complete details of management plan. * Follow Up: p rn,1 Year * * Electronically signed by Betsy Ivory , ZECHARIAH, WASTE OIL PUMPER.WARP TRUCKER.[id number] on 12/21/2024 at 09:02 AM EDT Sign off status: Completed Visit Status: C HK (Check Out) true * Provider: Daron Ivory ([facility] WARP TRUCKER Date: 0 12/19/2024 Generated for Cherry nelson/Mario/eTrachealsmitting on: 0 02/26/2025 07:59 PM EDT History and Physical Notes * HPI (History of Present Illness) Category Sub-Category Detail Notes Category Not es Depression Screening PHQ-9 Little inte rest or pleasure in doing things: More than half the days Feeling down, depressed, or hopeless: Ne emily every day Trouble falling or staying asleep, or sl eeping too much: Nearly every day Feeling tired or having little energy: N early every day Poor appetite or overeating: Nearly ever y day Feeling bad about yourself o r that you are a failure, or have let yourself or your family down: Nearly every day Trouble concentrating on thi ngs, such as reading the newspaper or watching television: Nearly every day Moving or speaking so slowly that other people could have noticed; or the opposite, being so fidgety or restless that you have been moving around a lot more than usual: More than half the days Thoughts that you would be b grecia off or of hurting yourself in some way: Nearly every day (Consider Suicide Assessment Risk) Total Score: 25 Interpretation: Severe Depression General snoring, gasping at night, sleep study wants BS labs rechecked having headaches 16 days out of the month, goes to bed early and helps ses psych fu Krysta for headaches Examination Category Sub-Category Detail Notes Category Not es General Examinations GENERAL APPEARANCE: alert a nd oriented, in no acute distress EYES: conjunctiva normal, sclera non-icteric EARS: NOSE: normal external appe arance THROAT: CARDIO: regular rate and rhy thm, S1, S2 normal LUNGS: clear to auscultatio n bilaterally ABDOMEN: soft, nontender SKIN: warm and dry, no tato picious lesions BACK: MUSCULOSKELETAL: Ga, Gait and station normal LYMPH NODES: Consultation Request Notes Referral Date Referring Provider Referred Provider Not es 12/19/2024 Hayde Ivory Nicole requesting sleep study
--- OUTSIDE RECORDS SUMMARY | 2025-01-11 07:30 | XMS_ITS ---
Author Organization The [facility] in [place] Address [address] [place] [address] Care Team Providers Care Welding Foreman Name Role Phone Hayde Ivory Primary Care Provider Allergies Allergen (clinical drug ingredient) Drug/Non Drug Allergy documented on EMR Reaction Allergy Type Onset Date Status ketorolac Ketorolac Anxiety Drug Allergy Active tramadol traMADol Seizure Drug Allergy Active Penicillin Swelling Drug Allergy Active Reason For Referral Reason change in bowel move ment Diagnosis 1 Change in bowel move ment (R19.8) Referral Organization [facility] Medicine Referring Provider First Name Hayde Referring Provider Last Name Cachorro Referring Provider Speciality Family Med asif Referred Provider Taz Molina Referred Provider Specialty General Surg jermaine Referral Priority Routine REASON FOR VISIT changes in stool, jone colored for the past 3 weeks- ABD pain in rhw RLQ but moves down into the pelvic region as well, Does have some straining to have BM at times- occasional blood, Onyl eating once daily- if eats mroe than that triggers more acid reflux to tries to avoid that, Two uncles dx withcolon cancer- one 64 years and one in his 50s- patient never had colonoscopy Medications Medication SIG (Take, Route, Fr equency, Duration) Notes Start Date End Date Status Adderall 5 MG 1 tablet Orally daily Active DULoxetine HCl 60 MG 1 capsule Orally Once a day Active traZODone HCl 100 MG 1 tablet at bedtime Orally Once a day Active SEROquel 400 MG 2 tablet Orally Once a day Active Omeprazole 40 MG TAKE 1 CAPSULE BY [facility] EVERY DAY for 30 days Active LaMICtal 100 MG 1 tablet Orally TID Active Imitrex 100 MG 1 tablet as needed, may take second dose at least 2 hours after first dose up to 2 tablets per day as needed Orally Once a day for 30 days 12/19/2024 Ac tive Social History Tobacco Use: Social History Observation Description Date Details (start date - stop date) Never Smoker NA - NA Tobacco Control (Standard) Question Answer Notes Tobacco use: Nonsmoker Problems Problem Type SNOMED Code ICD Code Onset Dates Problem Status W/U Status Risk Notes Problem Constipation (K59.00) Active confirmed Vital Signs Weight 250.6 lbs 01/11/2025 Height 75 in 01/11/2025 Blood pressure systolic 124 mm Hg 01/12/20 25 Blood pressure diastolic 80 mm Hg 025 BMI 31.32 kg/m2 01/11/2025 Encounters Encounter Location Date Provider Diagnosis [facility] [address] [place] [address] 01/11/2025 Hayde Cachorro Constipation K59.00 ; Change in bowel movement R19.8 and RLQ abdominal pain R10.31 Assessments Encounter Date Diagnosis (ICD Code) Assessment Notes Treatment Notes Treatment Clinical Notes Section Notes 01/11/2025 Constipation (ICD-10 - K59.00) if sx persist, labs, CT abdomen to ER if needed for RLQ pain 01/11/2025 Change in bowel movement (ICD-10 - R19.8) family hx colon CA, patient concerned states blood occ in BM change in color more constipation RLQ pain 01/11/2025 RLQ abdominal pain (ICD-10 - R10.31) continue monitor ER if needed KUB labs, CT if needed Plan Of Treatment Treatment Notes Assessment Notes Constipation if sx persist, labs, CT abdomen to ER if needed for RLQ pain Change in bowel movement family hx colon CA, patient concerned states blood occ in BM change in color more constipation RLQ pain RLQ abdominal pain continue monitor ER if needed KUB labs, CT if needed Pending Test Test Name Order Date XR Abdomen AP (1 view) (KUB) * 5 Referrals Referral Date Details 01/11/2025 01/11/2025, change i n bowel movement, aTz Molina Next Appt Details Follow Up: prn, Reason: Progress Notes * Radhames PETERS:1985 ( 39 yo M)Acc No.[id number]:01/11/2025 Progress Note Patient: Porter ROOT Provider: Daron Ivory ([facility]), NEEDLE LOOM SETTER :1985 A ge:39 Y S ex:Male Date:01/11/2025 Address:[address] [place], [place] [address], [id number] Check In:11:17 AM ESTCheck O ut:11:49 AM EST Subjective: * Chief Complaints: * 1 . changes in stool, jone colored for the past 3 weeks- ABD pain in rhw RLQ but moves down into the pelvic region as well. 2. Does have some straining to have BM at times- occasional blood. 3. Onyl eating once daily- if eats mroe than that triggers more acid reflux to tries to avoid that. 4. Two uncles dx with colon cancer- one 64 years and one in his 50s- patient never had colonoscopy. * HPI: G eneral: omeprazole helps with GERD some anxiety lately some constipation, going every day no gallbladder sharp pain in RLQ weeks constant about same less appetite,. * ROS: G eneral/Constitutional: Fever d enies. H eadache d enies. W eight loss?denies. O phthalmologic: Discharge d enies. E ye Pain d enies. I tching and redness d enies. E NT: Nasal discharge d enies. N cliff congestion d enies.?Sore throat d enies. C ardiovascular: Chest tightness/ heavy pressure d enies. R apid heart rate d enies. S welling of extremities d enies. C hest pain d enies. ? R espiratory: Productive cough d enies. C hest pain d enies. C ough d enies. S hortness of breath d enies. W heezing d enies. ? G astrointestinal: Patient complaining of c hange is stool color, some blood with bms, less appetite. A bdominal pain a dmits RLQ 2 weeks. C onstipation a dmits. D ecreased appetite a dmits. D iarrhea d enies. N ausea d enies. V omiting d enies. G enitourinary: Urinary incontinence d enies. P ainful urination d enies. M usculoskeletal: Back pain d enies. N sherrill pain d enies. M uscle aches d enies. S kin: Rash d enies. S kin lesion(s) d enies. ? * Active Problem List F90.9 ADHD (attention defi cit hyperactivity disorder) Modified On:12/19/2024U Status:confirmed F41.9 Severe anxiety Modified On:12/19/2024U Status:confirmed G93.0 Arachnoid cyst Modified On:12/19/2024U Status:confirmed F33.2 Depression, major, s evere recurrence Modified On:12/19/2024U Status:confirmed R47.89 Word finding difficu lty Modified On:12/19/2024U Status:confirmed R41.3 Memory loss Modified On:12/19/2024U Status:confirmed M17.11 Primary osteoarthrit is of right knee Modified On:03/02/2024U Status:confirmed M25.462 Effusion of left kne e Modified On:03/02/2024U Status:confirmed K21.9 GERD (gastroesophage al reflux disease) Modified On:05/22/2024U Status:confirmed R73.03 Pre-diabetes Modified On:06/15/2024U Status:confirmed G43.909 Migraine Modified On:12/19/2024U Status:confirmed K59.00 Constipation Modified On:01/11/2025U Status:confirmed * Medical History: S eizure, ADHD (attention deficit hyperactivity disorder), Severe anxiety, Depression, major, severe recurrence, Arachnoid cyst, Word finding difficulty, Memory loss. * Surgical History: L eft Knee Replacement , Back Fusion , Gallbladder Removal . * Hospitalization/Major Diagno stic Procedure: D enies Past Hospitalization. * Family History: F ather: alive. M other: alive. B rother(s): alive. S ister(s): alive. S on(s): alive. 1 brother(s) , 1 sister(s) - healthy. 1 son(s) - healthy. . * Social History: T obacco Use: T obacco Control (Standard) T obacco use: N onsmoker * Medications: T aking Adderall(Amphetamine-Dextroamphetamine) 5 MG Tablet 1 tablet Orally daily , Taking DULoxetine HCl 60 MG Capsule Delayed Release Particles 1 capsule Orally Once a day , Taking Imitrex(SUMAtriptan Succinate) 100 MG Tablet 1 tablet as needed, may take second dose at least 2 hours after first dose up to 2 tablets per day as needed Orally Once a day , Taking LaMICtal(lamoTRIgine) 100 MG Tablet 1 tablet Orally TID , Taking Omeprazole 40 MG Capsule Delayed Release TAKE 1 CAPSULE BY MOUTH EVERY DAY , Taking SEROquel(QUEtiapine Fumarate) 400 MG Tablet 2 tablet Orally Once a day , Taking traZODone HCl 100 MG Tablet 1 tablet at bedtime Orally Once a day , Discontinued Methocarbamol 750 MG Tablet 1 tablet Orally QID , Discontinued Nabumetone 500 MG Tablet 1 tablet Orally Twice a day , Medication List reviewed and reconciled with the patient * Allergies: P enicillin: Swelling, Ketorolac: Anxiety, traMADol: Seizure. Objective: * Vitals: W t:250.6lbs, Ht: 75 in, BP:124/80mm Hg, BMI:31.32Index, Ht-cm: 190.5 cm, Wt-k.67 kg. * Examination: G eneral Examinations: GENERAL APPEARANCE: a lert and oriented, i n no acute distress. EYES: c onjunctiva normal, sclera non-icteric. NOSE: n ormal external appearance. LUNGS: c lear to auscultation bilaterally. CARDIO: r egular rate and rhythm, S1, S2 normal. ABDOMEN: s oft, nondistended, normal bowel sounds , tenderness with palpation RLQ and RUQ, no rebound tenderness. MUSCULOSKELETAL: G ait and station normal. SKIN: w arm and dry. Assessment: * Assessment: 1. C onstipation - K59.00 (Primary) 2 . C hange in bowel movement - R19.8? 3. R LQ abdominal pain - R10.31 Plan: * Treatment: 2. C hange in bowel movement Notes: family hx colon CA, patient concerned states blood occ in BM change in color more constipation RLQ pain Referral To:Taz Molina General Surgery Reason:change in bowel movement 3. R LQ abdominal pain Notes: continue monitor ER if needed KUB labs, CT if needed * Preventive Medicine: Screenings/Counseling: B [place] ACTION PLAN Above Normal BMI Follow-up D ietary management education, guidance, and counseling * Follow Up: p rn * * Electronically signed by Betsy Ivory , SHIP OFFICER, ARCHIVES TECHNICIAN.NEEDLE LOOM [id number] on 01/12/2025 at 08:37 AM EDT Sign off status: Completed Visit Status: C HK (Check Out) true * Provider: Daron Ivory ([facility]), NEEDLE LOOM SETTER Date: 0 01/11/2025 Generated for Suhaili omar/Josefinag/eTransmitting on: 0 02/26/2025 07:58 PM EDT History and Physical Notes * HPI (History of Present Illness) Category Sub-Category Detail Notes Category Not es General omeprazole helps with GERD some anxiety lately some constipation, going every day no gallbladder sharp pain in RLQ weeks constant about same less appetite, Examination Category Sub-Category Detail Notes Category Not es General Examinations GENERAL APPEARANCE: alert a nd oriented, in no acute distress EYES: conjunctiva normal, sclera non-icteric EARS: NOSE: normal external appe arance THROAT: CARDIO: regular rate and rhy thm, S1, S2 normal LUNGS: clear to auscultatio n bilaterally ABDOMEN: soft, nondistended, normal bowel sounds , tenderness with palpation RLQ and RUQ, no rebound tenderness SKIN: warm and dry BACK: MUSCULOSKELETAL: Gait and station nor mal LYMPH NODES: Consultation Request Notes Referral Date Referring Provider Referred Provider Not es 01/11/2025 Hayde Ivory Michael change in maddison wel movement
--- OUTSIDE RECORDS SUMMARY | 2025-01-12 07:40 | XMS_ITS ---
Author Organization The [facility] in [place] Address [address] [place] [address] Care Team Providers Care Child Development Associate Teacher Name Role Phone Hayde Ivory Primary Care Provider REASON FOR VISIT Lab Results Encounters Encounter Location Date Provider Diagnosis [facility] [place] [address] [facility] [place] [address] 01/12/2025 Hayde Ivory Plan Of Treatment No Information Progress Notes * FRANAnaOB:1985 ( 39 yo M)Acc No.[id number]:01/12/2025 Patient: Porter ROOT :1985 A ge:39 Y S ex:Male Address:[address] [place] [address] * true * Date: Generated for Suhaili omar/Mario/eTransmitting on: 0 02/26/2025 08:00 PM EDT
--- OUTSIDE RECORDS SUMMARY | 2025-01-12 10:30 | XMS_ITS ---
Author Organization [facility] Address [address] [place] [address] Care Team Providers Care Chief Of Staff Doctor Name Role Phone Alfreda Keller Primary Care Provider [phone] Elizabeth Conway Unavailable [phone] REASON FOR VISIT updated exam- wants to get retainer fixed (stated last time Dr. thomas the power went out so couldn't finish it) Encounters Encounter Location Date Provider Diagnosis [address] [place] [address] 01/12/2025 Elizabeth Conway Plan Of Treatment No Information Progress Notes * TAIWOJCOMAROB:1985 ( 39 yo M)Acc No.[id number]:01/12/2025 Patient: LATIA ROOT Provider: Han Conway DDS :1985 A ge:39 Y S ex:Male Date:01/12/2025 Address:[address] [id number] Pcp:Alfreda Rosen Subjective: * Chief Complaints: * 1 . updated exam- wants to get retainer fixed (stated last time Dr. thomas the power went out so couldn't finish it). * Medical History: Objective: * Vitals: Assessment: Plan: * Treatment: * Images: * Electronic signature of Sharron Conway DDS on 02/26/2025 at 07:59 PM EDT Sign off status: Pending * Provider: Han Conway DDS Date: 0 01/12/2025 Generated for [employer] on: 0 02/26/2025 07:59 PM EDT
--- OUTSIDE RECORDS SUMMARY | 2025-02-09 11:30 | XMS_ITS ---
Author Organization [facility] Address [address] [place] [address] Care Team Providers Care Product Support Consultant Name Role Phone Alfreda Keller Primary Care Provider Elizabeth Conway [facility] [phone] REASON FOR VISIT UPDATED EXAM- partial eula, wants to talk about replacement Encounters Encounter Location Date Provider Diagnosis [address] [place] [address] 02/09/2025 Elizabeth Conway Plan Of Treatment No Information Progress Notes * TAIWOBRIANVIPIN:1985 ( 39 yo M)Acc No.[id number]:02/09/2025 Patient: LATIA ROOT Provider: Han Conway DDS :1985 A ge:39 Y S ex:Male Date:02/09/2025 Address:[address] [id number] Pcp:Alfreda Rosen Subjective: * Chief Complaints: * 1 . UPDATED EXAM- partial eula wants to talk about replacement. * Medical History: Objective: * Vitals: Assessment: Plan: * Treatment: * Images: * Electronic signature of Sharron Conway DDS on 02/26/2025 at 07:59 PM EDT Sign off status: Pending * Provider: Han Conway DDS Date: 0 02/09/2025 Generated for Cherry nelson/Mario/Joyce on: 0 02/26/2025 07:59 PM EDT
--- OUTSIDE RECORDS SUMMARY | 2025-02-26 19:58 | XMS_ITS | Encounter Summary ---
Author Organization [facility] Address [address] [place] [address] Care Team Providers Care Concrete Precast Moulder Name Role Phone George Chaparro Win DO Unavailable [phone] Андрей Goode DO Primary Care Provider [phone] Raisa Cabrera PA-C Unavailable [phone] Source Comments In the event this information is protected by the Federal Confidentiality of Alcohol and Drug AbusePatient Records regulations: The Federal rules restrict any use of the information to criminally investigate or prosecute any alcohol or drug abuse patient.[facility] Encounter Details Date Type Department Care Team (Late st Contact Info) Description 03/12/2023 Get Medical Advice Orthopaedics [address] [id number] Toribio Hammond PA-C [address] [address] [place], [place] [id number] Results Social History Tobacco Use Types Packs/Day Years Used Date Smoking Tobacco: Former Cigarettes Smokeless Tobacco: Never Alcohol Use Standard Drinks/Week Comments Not Currently 0 (1 standard drink = 0.6 oz pur e alcohol) PHQ-2 Answer Date Recorded PHQ-2 score 6 02/22/2023 Area Deprivation Index Answer Date Doug rded National Score (1-100), lower number is lower ri sk 87 01/13/2023 State Score (1-10), lower number is lower risk 8 01/13/2023 Data from: https://www.neighborhoodatlas.medicine.[facility].edu/. Last address used for calculation [address] 01/13/2023 Sex and Gender Information Value Date Recorded Sex Assigned at Not on file Legal Sex Male 4:29 PM EDT Gender Identity Not on file Sexual Orientation Not on file documented as of this encounter Plan of Treatment Not on file documented as of this encounter Visit Diagnoses Not on filedocumented in this encounter Care Teams Concrete Precast Moulder Relationship Specialty Start Date End Date Андрей Goode DO [address] [place] [address] PCP - General Family Medicine 07/26/19 George Chaparro DO [address] [place] [phone] Referring Neurology 07/26/19 Raisa Cabrera PA-C [address] [place] [address] Referring Neurology 02/17/21 documented as of this encounter
--- OUTSIDE RECORDS SUMMARY | 2025-02-26 19:59 | XMS_ITS | Patient Health Record ---
Author Organization [facility] Address [address] [place] [address] Care Team Providers Care Clockmaker Name Role Phone Alfreda Keller Primary Care Provider [phone] Elizabeth Conway Unavailable [phone] Allergies Allergen (clinical drug ingredient) Drug/Non Drug Allergy documented on EMR Reaction Allergy Type Onset Date Status penicillin G Penicillin G Potassium anaphylaxis Drug Allergy Active tramadol Tramadol HCl Unknown Drug Allergy Acti ve Reason For Referral No Information Medications Medication SIG (Take, Route, Frequency, Duration) Notes Start Date End Date Status Vraylar 1.5 MG 1 capsule Orally Onc e a day for 30 day(s) 03/26/2021 Not-Taking Propranolol HCl 10 MG 1 tablet Orally tw ice daily as needed (prn) for 30 Not-Taking lamoTRIgine 150 MG TAKE 2 TABLETS BY MO UTH EVERY DAY for 30 Active OLANZapine 5 MG 1 tablet Orally Once a day for 30 day(s) 07/30/2021 Active Ibuprofen 800 MG 1 tablet with food o r milk as needed Orally Three times a day 04/18/2021 Active busPIRone HCl 10 MG TAKE 1 TABLET BY NETTA TH THREE TIMES A DAY for 30 Active hydrOXYzine HCl 25 MG 3 tablet as needed Orally every 8 hrs for 30 day(s) Active Cayucos Carbonate 300 MG TAKE 1 CAPSULE BY MOUTH THREE TIMES A DAY for 30 Active traZODone HCl 50 MG TAKE 2 TABLETS BY MO UTH EVERY DAY AT BEDTIME NEEDED for 90 days Active SEROquel 400 MG 2 tablets Orally hs for 30 Active Social History Alcohol Screening: Question Answer Notes Did you have a drink contain ing alcohol in the past year? Yes How often did you have a dri nk containing alcohol in the past year? Two to four times a month (2 points) How many drinks did you have on a typical day when you were drinking in the past year? 3 or 4 (1 point) How often did you have six o r more drinks on one occasion in the past year? Less than monthly (1 point) Points 4 Interpretation Positive Section Notes: uses vape pen uses vape pen uses vape pen uses vape pen uses vape pen uses vape pen uses vape pen uses vape pen uses vape pen uses vape pen uses vape pen uses vape pen uses vape pen uses vape pen uses vape pen uses vape pen Problems Problem Type SNOMED Code ICD Code Onset Dates Problem Status W/U Status Risk Notes Problem Insomnia (924296249) Insomnia (G47.00) Active confirmed Problem Anxiety (67825456) Anxiety (F41.9) Active confirmed Problem Bipolar disorder (61549974) Bipolar disorder (F31.9) Active confirmed Problem [id number] BMI 32.0-32.9,jess lt (Z68.32) Active confirmed Plan Of Treatment No Information Insurance Providers Payer Name Payer Address Payer Phone Subscriber Number Group Number Insured Name Patient Relationship to Insured Coverage Start Date Coverage End Date [employer] [place] [address] [place] [address] [id number] TAIWO LATIA Self - patient is the insured 3 Wrap ABD [employer] [address] [place] [address] [id number] TAIWO LATIA Self - patient is the insured 3 z [employer] [address] [place] [address] [phone] [id number] LATIA MARAVILLA Self - patient is the insured 0 3 [facility] Medicaid ABD after [employer] [address] [place] [address] [phone] [id number] LATIA MARAVILLA Self - patient is the insured 0 3 zDENTAL DQ [employer] 22 [address] [place] [address] [phone] [id number] LATIA MARAVILLA Self - patient is the insured 1 3 zDental Medicaid ABD after [employer] [address] [place] [address] [id number] LATIA MARAVILLA Self - patient is the insured 1 3 Dental [employer] [place] [address] [place] [address] [id number] LATIA MARAVILLA Self - patient is the insured 3 Dental Wrap ABD [employer] [address] [place] [address] [id number] LATIA MARAVILLA Self - patient is the insured 3 Medical (General) History Medical History History ICD Code bipolar arachnoid cyst Surgical History Surgery Date(Month/Year) tonsillectomy 1992 cholecystectomy 2019 knee surgery 2019 back surgery 2020 Hospitalization History Reason Date(Month/Year) psychiatric x 4 back injury 2010
--- OUTSIDE RECORDS SUMMARY | 2025-02-26 19:59 | XMS_ITS | Patient Health Record ---
Author Organization [facility] in [place] Address [address] [place] [address] Care Team Providers Care Occup Therapist Name Role Phone Hayde Ivory Primary Care Provider Allergies Allergen (clinical drug ingredient) Drug/Non Drug Allergy documented on EMR Reaction Allergy Type Onset Date Status ketorolac Ketorolac Anxiety Drug Allergy Active tramadol traMADol Seizure Drug Allergy Active Penicillin Swelling Drug Allergy Active Results Component Value Reference Range Notes GLYCOHEMOGLOBIN A1C Reviewed date:06/15/2024 09:07:06 AM Interpretation: Performing Lab: Notes/Report: [facility] , Glycohemoglobin A1C 5.7 4.5-6.2 % ADA THERAPEUTIC TARGET < 7.0 > 7.0 ADA RECOMMENDED LIMIT 4.0 - 6.0 ACTION SUGGESTED Estimated Average Glucose 117 Performing Lab: see note ML - [facility] LB INSULIN Reviewed date:06/15/2024 09:07:06 AM Interpretation: Performing Lab: Notes/Report: [facility] , Insulin 29.3 2.6-24.9 uIU/mL Functional Manager: Jourdan Hess PhD, Phone: [phone] [address] [place], [place] [id number] Performed at: CB - [facility] Performing Lab: see note LC - [facility] LB GLYCOHEMOGLOBIN A1C Reviewed date:01/12/2025 11:41:31 AM Interpretation: Performing Lab: Notes/Report: [facility] , Glycohemoglobin A1C 5.9 4.5-6.2 % > 7.0 ADA THERAPEUTIC TARGET < 7.0 ACTION SUGGESTED ADA RECOMMENDED LIMIT 4.0 - 6.0 Estimated Average Glucose 123 Performing Lab: see note ML - [facility] LB TSH Reviewed date:06/15/2024 09:07:06 AM Interpretation: Performing Lab: Notes/Report: [facility] , Thyroid Stimulating Hormone 1.936 0.358-3.740 u IU/mL Performing Lab: see note ML - [facility] LB T4 Reviewed date:06/15/2024 09:07:06 AM Interpretation: Performing Lab: Notes/Report: [facility] , T4 Thyroxine 8.50 4.50-12.10 ug/dL Performing Lab: see note ML - [facility] PROF 14(COMP METB) Reviewed date:06/15/2024 09:07:06 AM Interpretation: Performing Lab: Notes/Report: [facility] , Sodium 139 136-145 mmol/L Potassium 3.5 3.5-5.1 mmol/L Chloride 101 98-107 mmol/L Carbon Dioxide 29.8 21.0-32.0 mmol/L Anion Gap 11.7 Glucose 89 74-106 mg/dL Blood Urea Nitrogen 10.0 7.0-18.0 mg/dL Creatinine 1.17 0.70-1.30 mg/dL Estimated GFR ( Meri >60 >=60 mL/min/1.73m 2 Estimated GFR (Non- Jael >60 >=60 mL/min/1.73m 2 BUN Creatinine Ratio 8.5 Calcium 9.4 8.5-10.1 mg/dL Bilirubin Total 0.4 0.2-1.0 mg/dL Aspartate Amino Transferase 27 15-37 U/L Alanine Aminotransferase 36 16-63 U/L Alkaline Phosphatase 179 46-116 U/L Total Protein 7.5 6.4-8.2 g/dL Albumin Level 4.0 3.4-5.0 g/dL Globulin 3.5 Albumin Globulin Ratio 1.1 Performing Lab: see note ML - [facility] LB LIPID PROFILE Reviewed date:06/15/2024 09:07:06 AM Interpretation: Performing Lab: Notes/Report: [facility] , Triglycerides 100 <=150 mg/dL Cholesterol 161 <=200 mg/dL HDL Cholesterol 37 40-60 mg/dL > or =60 mg/dl - LOW CARDIOVASCULAR RISK <40 mg/dl - HIGH CARDIOVASCULAR RISK LDL Cholesterol Calculated 104.0 100-129 mg/dl NEAR OR ABOVE OPTIMAL >190 mg/dl VERY HIGH 130-159 mg/dl BORDERLINE HIGH <100 mg/dl OPTIMAL 160-189 mg/dl HIGH VLDL CHOLESTEROL 20.0 Chol HDL Ratio 4.4 7.1 - 11.0 MODERATE RISK 3.3 - 4.4 LOW RISK >11.0 HIGH RISK 4.4 - 7.1 AVERAGE RISK Performing Lab: see note ML - [facility] LB FREE T3 Reviewed date:06/15/2024 09:07:06 AM Interpretation: Performing Lab: Notes/Report: [facility] , Free T3 3.14 2.18-3.98 pg/mL Performing Lab: see note ML - [facility] LB CBC AUTO DIFF Reviewed date:06/15/2024 09:07:06 AM Interpretation: Performing Lab: Notes/Report: [facility] , White Blood Count 5.4 4.0-11.0 10 3/uL Red Blood Count 5.13 4.70-6.10 10 6/uL Hemoglobin 15.2 14.0-18.0 g/dL Hematocrit 45.6 42.0-54.0 % Mean Corpuscular Volume 88.9 80.0-94.0 fL Mean Corpuscular Hemoglobin 29.6 25.9-34.0 pg Mean Corpuscular HGB Conc 33.3 29.9-35.2 g/dL Red Cell Distribution Width 15.3 11.0-15.0 % Platelet Count 210 150-450 10 3/uL Mean Platelet Volume 10.4 9.5-13.5 fL Neutrophils Percent Auto 27.0 43.0-75.0 % Lymphocytes Percent Auto 57.3 20.5-60.0 % Monocytes Percent Auto 7.4 1.7-12.0 % Eosinophils Percent Auto 7.4 0.9-7.0 % Basophils Percent Auto 0.9 0.2-2.0 % Immature Granulocytes Pct Auto 0.0 0.0-0.5 % Neutrophils Absolute Auto 1.5 1.4-6.5 10 3/uL Lymphocytes Absolute Auto 3.1 1.2-3.8 10 3/uL Monocytes Absolute Auto 0.4 0.3-0.8 10 3/uL Eosinophils Absolute Auto 0.4 0.0-0.7 10 3/uL Basophils Absolute Auto 0.1 0.0-0.1 10 3/uL Immature Granulocytes Abs Auto 0.00 0.00-0.03 10 3/uL Performing Lab: see note ML - [facility] LB INSULIN Reviewed date:01/12/2025 11:41:25 AM Interpretation: Performing Lab: Notes/Report: [facility] , Insulin 21.1 2.6-24.9 uIU/mL Functional Manager: Jourdan Hess PhD, Phone: [phone] [address] [place], [place] [phone] Performed at: - [facility] Performing Lab: see note LC - [facility] LB Reason For Referral Reason requesting sleep brittaney dy Diagnosis 1 Snoring (R06.83) Referral Organization [facility] Referring Provider First Name Hayde Referring Provider Last Name Cachorro Referring Provider [facility] Referred Provider Chana Purcell Referred Provider Specialty Sleep Medici ne Referral Priority Routine Reason change in bowel move ment Diagnosis 1 Change in bowel move ment (R19.8) Referral Organization [facility] Referring Provider First Name Hayde Referring Provider Last Name Cachorro [facility]erred Provider Tza Molina Referred Provider Specialty General Surg jermaine Referral Priority Routine Medications Medication SIG (Take, Route, Fr equency, Duration) Notes Start Date End Date Status SEROquel 400 MG 2 tablet Orally Once a day Active Omeprazole 40 MG TAKE 1 CAPSULE BY [facility] EVERY DAY for 30 days Active LaMICtal 100 MG 1 tablet Orally TID Active Adderall 5 MG 1 tablet Orally daily Active Imitrex 100 MG 1 tablet as needed, may take second dose at least 2 hours after first dose up to 2 tablets per day as needed Orally Once a day for 30 days 12/19/2024 Ac tive DULoxetine HCl 60 MG 1 capsule Orally Once a day Active traZODone HCl 100 MG 1 tablet at bedtime Orally Once a day Active Social History Tobacco Use: Social History Observation Description Date Details (start date - stop date) Never Smoker NA - NA Tobacco Control (Standard) Question Answer Notes Tobacco use: Nonsmoker AUDIT-C (Standard) Question Answer Notes Did you have a drink containing alcohol in the p ast year? No Points 0 Interpretation Negative Problems Problem Type SNOMED Code ICD Code Onset Dates Problem Status W/U Status Risk Notes Problem Gastroesophageal reflux disease (055316942) GERD (gastroesophageal reflux disease) (K21.9) Active confirmed Problem Osteoarthritis of knee (924545140) Primary osteoarthritis of right knee (M17.11) Active confirmed Problem Migraine (33906925) Migraine (G43.909) Active confirmed Problem Attention deficit hyperactivity disorder (655066090) ADHD (attention deficit hyperactivity disorder) (F90.9) Active confirmed Problem Constipation (74090077) Constipation (K59.00) Active confirmed Problem Memory loss (27951073) Memory loss (R41.3) Active confirmed Problem Effusion of left knee (589140455834162) Effusion of left knee (M25.462) Active confirmed Problem Anxiety state (602546139) Severe anxiety (F41.9) Active confirmed Problem Arachnoid cyst (67590659) Arachnoid cyst (G93.0) Active confirmed Problem Severe recurrent major depression without psychotic features (10813977) Depression, major, severe recurrence (F33.2) Active confirmed Problem Word finding difficulty (481276125) Word finding difficulty (R47.89) Active confirmed Problem Prediabetes (126357972) Pre-diabetes (R73.03) Active confirmed Vital Signs Blood pressure diastolic 80 mm Hg 01/11/2025 Height 75 in 01/11/2025 Blood pressure systolic 124 mm Hg 01/11/2025 Weight 250.6 lbs 01/11/2025 BMI 31.32 kg/m2 01/11/2025 Encounters Encounter Location Date Provider Diagnosis [address] [address] 06/15/2024 Hayde Ivory [address] [address] 01/12/2025 Hayde Ivory [address] [address] 05/22/2024 Hayde Ivory GERD (gastroesophage al reflux disease) K21.9 and Annual physical exam Z00.[address] [address] 12/19/2024 Hayde Ivory Snoring R06.83 ; Migraine G43.909 and Pre-diabetes R73.[address] [place] [address] 01/11/2025 Haydeshorty Ivory Constipation K59.00 ; Change in bowel movement R19.8 and RLQ abdominal pain R10.31 Assessments Encounter Date Diagnosis (ICD Code) Assessment Notes Treatment Notes Treatment Clinical Notes Section Notes 05/22/2024 GERD (gastroesophageal reflux disease) (ICD-10 - K21.9) 05/22/2024 Annual physical exam (ICD-10 - Z00.00) 12/19/2024 Snoring (ICD-10 - R06.83) sleep study 12/19/2024 Migraine (ICD-10 - G43.909) send triptan going to [facility] for this 01/11/2025 Constipation (ICD-10 - K59.00) if sx persist, labs, CT abdomen to ER if needed for RLQ pain 01/11/2025 Change in bowel movement (ICD-10 - R19.8) family hx colon CA, patient concerned states blood occ in BM change in color more constipation RLQ pain 01/11/2025 RLQ abdominal pain (ICD-10 - R10.31) continue monitor ER if needed KUB labs, CT if needed 12/19/2024 Pre-diabetes (ICD-10 - R73.03) Plan Of Treatment Pending Test Test Name Order Date CMP (COMPLETE METABOLIC PANEL) 4 HEMOGLOBIN A1C (GLYCO) 12/19/2024 HEMOGLOBIN A1C (GLYCO) 05/22/2024 INSULIN, TOTAL 12/19/2024 INSULIN, TOTAL 05/22/2024 LIPID PANEL (CHOL/TRIG/HDL/LDL) 05/22/20 24 CBC WITH DIFF 05/22/2024 XR Abdomen AP (1 view) (KUB) * 5 THYROID PANEL (T4/TSH/FREE T3) 4 Insurance Providers Payer Name Payer Address Payer Phone Subscriber Number Group Number Insured Name Patient Relationship to Insured Coverage Start Date Coverage End Date [employer] [place] [employer] [address] [place] [address] [id number] Porter Peters Self - patient is the insured Medical (General) History Medical History History ICD Code Seizure R56.9 ADHD (attention deficit hyperactivity di sorder) F90.9 Severe anxiety F41.9 Depression, major, severe recurrence F33 .2 Arachnoid cyst G93.0 Word finding difficulty R47.89 Memory loss R41.3 Surgical History Surgery Date(Month/Year) Gallbladder Removal Back Fusion Left Knee Replacement
--- OUTSIDE RECORDS SUMMARY | 2025-02-26 19:59 | XMS_ITS | Clinical Summary ---
Author Organization [facility] Address [address] [place] [address] Care Team Providers Care It Network Administrator Name Role Phone KrystaEvens escobedodianne Walden DO Unavailable [phone] Андрей Goode DO Primary Care Provider [phone] Raisa Cabrera PA-C Unavailable [phone] Allergies Active Allergy Reactions Criticality Noted Date Comments Penicillins Swelling 07/17/2021 Ketorolac Other: See Comments 07/17/2021 seizure Tramadol Mental Status Change 07/17/2021 Medications hydrOXYzine HCl (ATARAX) 25 mg tablet 25 mg three times daily as needed. 06/27/2021 Active lamoTRIgine (LAMICTAL) 100 mg tablet 100 mg twice daily. 04/11/2021 Active traZODone (DESYREL) 50 mg tablet 100 mg daily at bedtime. 06/25/2021 Active QUEtiapine (SEROQUEL) 400 mg tablet Take 800 mg by mouth daily at bedtime. Active ibuprofen (MOTRIN) 800 mg tablet Take 800 mg by mouth every 8 hours as needed. Active atomoxetine (STRATTERA) 60 mg capsule Take 60 mg by mouth once daily. 12/10/2022 Active FLUoxetine (PROZAC) 40 mg capsule Take 80 mg by mouth once daily. 12/18/2022 Active LORazepam (ATIVAN) 0.5 mg Take 0.5 mg by mouth three times daily. 01/03/2023 Active prazosin (MINIPRESS) 1 mg cap Take 1 mg by mouth daily at bedtime. 01/02/2023 Active Active Problems Problem Noted Date Diagnosed Date History of left knee replacement 03/22/2023 Bilateral chronic knee pain 03/22/2023 Family History Medical History Relation Comments Diabetes Maternal Grandfather Hypertension Maternal Grandfather Relation Status Comments Maternal Grandfather Alive Mother Alive Social History Tobacco Use Types Packs/Day Years Used Date Smoking Tobacco: Former Cigarettes Smokeless Tobacco: Never Tobacco Cessation:Counseling Given: No Alcohol Use Standard Drinks/Week Comments Not Currently 0 (1 standard drink = 0.6 oz pur e alcohol) PHQ-2 Answer Date Recorded PHQ-2 score 6 05/31/2023 Area Deprivation Index Answer Date Doug rded National Score (1-100), lower number is lower ri sk 87 01/13/2023 State Score (1-10), lower number is lower risk 8 01/13/2023 Data from: https://www.neighborhoodatlas.medicine.[facility].edu/. Last address used for calculation [address] 01/13/2023 Sex and Gender Information Value Date Recorded Sex Assigned at Not on file Legal Sex Male 4:29 PM EDT Gender Identity Not on file Sexual Orientation Not on file Last Filed Vital Signs Vital Sign Reading Time Taken Comments Blood Pressure 126/86 06/28/2023 3:12 PM EDT Pulse 92 06/28/2023 3:12 PM EDT Temperature 36.7 C (98.1 F) 03/18/2023 3:28 PM EDT Respiratory Rate 16 03/18/2023 3:28 PM EDT Oxygen Saturation 99% 06/28/2023 3:12 PM EDT Inhaled Oxygen Concentration - - Weight 111.1 kg (245 lb) 06/28/2023 3:12 PM EDT Height 190.5 cm (6' 3 ) 06/28/2023 3:12 PM EDT Body Mass Index 30.62 06/28/2023 3:12 PM EDT Plan of Treatment Health Maintenance Due Date Last Done Comments Anxiety Screening 2005 Depression Screening 2005 HIV Screening 2005 Hepatitis C Screening 2005 DTaP,Tdap,Td Vaccine (1 - Tdap) 2006 Hepatitis B Vaccine (1 of 3 - 19+ 3-dose series) 07/18 Lipid Screening 2022 Covid-19 Vaccine ( - 2023- season) 2024 Influenza Vaccine (Season Ended) 2025 06/13/20 Insurance [employer] [place] [employer] [employer] Care Teams It Network Administrator Relationship Specialty Start Date End Date Андрей Goode DO [address] [place] [address] PCP - General Family Medicine 07/26/19 George Chaparro DO [address] [address] Referring Neurology 07/26/19 Raisa Cabrera PA-C [address] [address] Referring Neurology 02/17/21
--- OUTSIDE RECORDS SUMMARY | 2025-02-26 20:00 | XMS_ITS | Encounter Summary ---
Author Organization [facility] Address [address] [place] [address] Care Team Providers Care Floor Coverer Apprentice Name Role Phone George Chaparro Win DO Unavailable [phone] Андрей Goode DO Primary Care Provider [phone] Raisa Cabrera PA-C Unavailable [phone] Source Comments In the event this information is protected by the Federal Confidentiality of Alcohol and Drug AbusePatient Records regulations: The Federal rules restrict any use of the information to criminally investigate or prosecute any alcohol or drug abuse patient.[facility] Encounter Details Date Type Department Care Team (Late st Contact Info) Description 05/03/2024 Patient Msg Neurology [address] [phone] Provider, [facility] Ketamine infusions Social History Tobacco Use Types Packs/Day Years [...] is lower risk 8 01/13/2023 Data from: https://www.neighborhoodatlas.[facility]/. Last address used for calculation [address] [...] on filedocumented in this encounter Care Teams Floor Coverer Apprentice Relationship Specialty Start Date End Date Андрей Goode DO [address] [place] [address] PCP - General Family Medicine 07/26/19 George Chaparro DO [address] [address] Referring Neurology 07/26/19 Raisa Cabrera PA-C [address] [place] [address] Referring Neurology 02/17/21 documented as of this encounter
--- OUTSIDE RECORDS SUMMARY | 2025-02-26 20:00 | XMS_ITS | Encounter Summary ---
Author Organization [facility] Address [address] [place] [address] Care Team Providers Care Dialysis Technician Name Role Phone George Chaparro Win DO Unavailable [phone] Андрей Goode DO Primary Care Provider [phone] Raisa Cabrera PA-C Unavailable [phone] Source Comments In the event this information is protected by the Federal Confidentiality of Alcohol and Drug AbusePatient Records regulations: The Federal rules restrict any use of the information to criminally investigate or prosecute any alcohol or drug abuse patient.[facility] Encounter Details Date Type Department Care Team (Late st Contact Info) Description 04/27/2023 Get Medical Advice Orthopaedics [address] [phone] Toribio Hammond PA-C [address] [address] [place], [place] [phone] Results Social History Tobacco Use Types Packs/Day [...] is lower risk 8 01/13/2023 Data from: https://www.neighborhoodatlas.medicine.[facility].edu/. Last address used for calculation [address] [...] on filedocumented in this encounter Care Teams Dialysis Technician Relationship Specialty Start Date End Date Андрей Goode DO [address] [place] [address] PCP - General Family Medicine 07/26/19 George Chaparro DO [address] [place] [address] Referring Neurology 07/26/19 Raisa Cabrera PA-C [address] [place] [address] Referring Neurology 02/17/21 documented as of this encounter
--- OUTSIDE RECORDS SUMMARY | 2025-02-26 20:00 | XMS_ITS | Clinical Summary ---
Author Organization [facility] Address [address] [place] [address] Phone Care Team Providers Care Track Patrol Name Role Phone Generic Provider, No Assigned Pcp MD Primary Car e Provider Unavailable Allergies Active Allergy Reactions Criticality Noted Date Comments Ketorolac Anxiety,Other,Unknow n,Sw elling Medium 09/22/2014 Seizure Other Reaction(s): Other: See Comments, Unknown seizure seizure seizure Penicillamine Swelling 06/04/2023 Penicillins Swelling,Hives Medium 05/07/2013 Other reaction(s): Facial Swelling Other Reaction(s): Unknown Tramadol Hives,Hallucinations ,Oth er,Seizure Medium 09/22/2014 Mental Status Change Other Reaction(s): Mental Status Change, Unknown Medications atomoxetine (Strattera) 80 mg capsule Take 1 capsule (80 mg) by mouth once daily in the morning. Take before meals. 11/10/2024 Active busPIRone (Buspar) 10 mg tablet Take 1 tablet (10 mg) by mouth 3 times a day. 01/07/2025 Active amphetamine-dex troamphetamine XR (Adderall XR) 10 mg 24 hr capsule Take 1 capsule (10 mg) by mouth once daily in the morning. 01/01/2025 Active amphetamine-dex troamphetamine (Adderall) 5 mg tablet Take 1 tablet (5 mg) by mouth once daily. 12/11/2024 Active DULoxetine (Cymbalta) [address] capsule Take 1 capsule (60 mg) by mouth once daily. Active FLUoxetine (PROzac) 40 mg capsule Take 2 capsules (80 mg) by mouth early in the morning.. 11/10/2024 Active hydrOXYzine HCL (Atarax) 50 mg tablet Take 1 tablet (50 mg) by mouth every 6 hours if needed for anxiety. 08/14/2024 Active lamoTRIgine (LaMICtal) 200 mg tablet Take 1 tablet (200 mg) by mouth once daily. Active lamoTRIgine (LaMICtal) 25 mg tablet Take 2 tablets (50 mg) by mouth once daily at bedtime. 12/24/2024 Active LORazepam (Ativan) 1 mg tablet Take 1 tablet (1 mg) by mouth every 6 hours if needed for anxiety. 01/08/2025 Active omeprazole (PriLOSEC) [address] capsule Take 1 capsule (40 mg) by mouth once daily in the morning. Take before meals. 01/22/2025 Active oxyCODONE-aceta minophen (Percocet) 5-325 mg tablet Take 1 tablet by mouth 2 times a day as needed for pain. 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 12/15/2024 Encounters Date Type Department Care Team Description 02/08/2025 Abstract [facility] [address] [place] [phone] Nakul Byrd MD 01/23/2025 1:05 PM EDT - 01/23/2025 11:59 PM EDT Hospital Encounter [facility] [address] [place] [phone] Left knee pain, unspecified chronicity Discharge Disposition: Home 01/23/2025 1:05 PM EDT - 01/23/2025 11:59 PM EDT Hospital Encounter [facility] [address] [place] [phone] Right knee pain, unspecified chronicity Discharge Disposition: Home 01/23/2025 1:00 PM EDT Office Visit [facility] [address] [place] [phone] Nakul Byrd MD Primary osteoarthritis of right knee (Primary Dx); Left knee pain, unspecified chronicity; Right knee pain, unspecified chronicity 01/23/2025 Travel 12/19/2024 Transcribe Orders [address] [place] [address] Nakul Byrd MD Mechanical loosening of internal left knee prosthetic joint, initial encounter (Primary Dx) 12/15/2024 Transcribe Orders [facility] [place] [address] [place] [address] Nakul Byrd MD Mechanical loosening of internal left knee prosthetic joint, initial encounter (Primary Dx) from Last 3 Months Social History Tobacco Use Types Packs/Day Years Used Date Smoking Tobacco: Never Assessed Sex and Gender Information Value Date Recorded Sex Assigned at Not on file Legal Sex Male 10:20 AM EST Gender Identity Not on file Sexual Orientation Not on file Plan of Treatment Health Maintenance Due Date Last Done Comments HIV Screening 1987 Lipid Panel 1987 Yearly Adult Physical 1987 MMR Vaccines (1 of 1 - Stand gil series) 1988 Varicella Vaccines (1 of 2 - 13+ 2-dose series) 2000 Hepatitis C Screening 2005 Hepatitis B Vaccines (1 of 3 - 19+ 3-dose series) 2006 DTaP/Tdap/Td Vaccines (1 - Tdap) 2009 COVID-19 Vaccine ( - 2023-2 5 season) 2024 Influenza Vaccine (Season Ended) 2025 06/13/20 19 Zoster Vaccines (1 of 2) 2037 HIB Vaccines Aged Out No longer eligi ble based on patient's age to complete this topic HPV Vaccines Aged Out No longer eligi ble based on patient's age to complete this topic Hepatitis A Vaccines Aged Out No long er eligible based on patient's age to complete this topic IPV Vaccines Aged Out No longer eligi ble based on patient's age to complete this topic Meningococcal Vaccine Aged Out No tiara bertha eligible based on patient's age to complete this topic Pneumococcal Vaccine: Pediat rics and At-Risk Adult Patients Aged Out No longer kaylah gible based on patient's age to complete this topic Rotavirus Vaccines Aged Out No longer eligible based on patient's age to complete this topic Procedures Procedure Name Priority Date/Time Associated Diagnosis Comments MS ARTHROCENTESIS ASPIR&/INJ MAJOR JT/BURSA W/O US Routine 01/23/2025 1:51 PM EDT Right knee pain, unspecified chronicity XR KNEE RIGHT 4+ VIEWS Routine 1:22 PM EDT Right knee pain, unspecified chronicity XR KNEE 3 VIEWS LEFT Routine 01/23/2025 1:22 PM EDT Left knee pain, unspecified chronicity from Last 3 Months Results * MS ARTHROCENTESIS ASPIR&/INJ MAJOR JT/BURSA W/O US (01/23/2025 1:51 PM EDT) Narrative Nakul Byrd MD - 01/23/2025 1:51 PM EDT Nakul Byrd MD 01/24/2025 5:51 AM Inj/Asp: Right knee [...] to verify the correct patient, procedure, equipment, business support liaison and site/side marked as required. Patient was prepped and draped in the usual sterile fashion. Nakul Byrd MD IN CLINIC/BEDSIDE ORDERAB LES Final Result * XR knee right 4+ views (01/23/2025 1:22 PM EDT) Anatomical Region Laterality Modality Musculoskeletal Right Computed Radiogr aphy 01/23/2025 1:46 PM EDT 01/23/2025 1:46 PM EDT Narrative 01/23/2025 1:45 PM EDT Interpreted By: Naukl Byrd, STUDY: XR KNEE RIGHT 4+ VIEWS; 01/23/2025 1:22 pm INDICATION: Signs/Symptoms:pain. ACCESSION NUMBER(S): [id number] ORDERING CLINICIAN: NAKUL BYRD FINDINGS: Right knee weightbearing four views. Mild medial joint space narrowing mild knee effusion no signs of fracture dislocation or other bony abnormality Signed by: Nakul Byrd 01/23/2025 1:45 PM Dictation workstation: [id number] Procedure Note Nakul Byrd MD - 01/23/2025 Interpreted By: Nakul Byrd, STUDY: XR KNEE RIGHT 4+ VIEWS; 01/23/2025 1:22 pm INDICATION: Signs/Symptoms:pain. ACCESSION NUMBER(S): [id number] ORDERING CLINICIAN: NAKUL BYRD FINDINGS: Right knee weightbearing four views. Mild medial joint space narrowing mild knee effusion no signs of fracture dislocation or other bony abnormality Signed by: Nakul Byrd 01/23/2025 1:45 PM Dictation workstation: [id number] Nakul Byrd MD IMG XR PROCEDURES Final R esult * XR knee left 3 views (01/23/2025 1:22 PM EDT) Anatomical Region Laterality Modality Musculoskeletal Left Computed Radiogr aphy 01/23/2025 1:46 PM EDT 01/23/2025 1:46 PM EDT Narrative 01/23/2025 1:45 PM EDT Interpreted By: Nakul Byrd STUDY: XR KNEE LEFT 3 VIEWS; 01/23/2025 1:22 pm INDICATION: Signs/Symptoms:pain. ACCESSION NUMBER(S): [id number] ORDERING CLINICIAN: NAKUL BYRD FINDINGS: Three views left knee. Status post cemented total knee replacement subtle lucency along the tibial component unchanged from previous x-ray no evidence of fracture dislocation or other bony abnormality Signed by: Nakul Byrd 01/23/2025 1:45 PM Dictation workstation: [id number] Procedure Note Nakul Byrd MD - 01/23/2025 Interpreted By: Nakul Byrd STUDY: XR KNEE LEFT 3 VIEWS; 01/23/2025 1:22 pm INDICATION: Signs/Symptoms:pain. ACCESSION NUMBER(S): [id number] ORDERING CLINICIAN: NAKUL BYRD FINDINGS: Three views left knee. Status post cemented total knee replacement subtle lucency along the tibial component unchanged from previous x-ray no evidence of fracture dislocation or other bony abnormality Signed by: Nakul Byrd 01/23/2025 1:45 PM Dictation workstation: [id number] Nakul Byrd MD IMG XR PROCEDURES Final R esult from Last 3 Months Insurance [facility] AGED BLIND AND DISABLED Care Teams Track Patrol Relationship Specialty Start Date End Date Generic Provider, No Assigned [place], [place] [address] PCP - General Hardware Engineer 05/23/24
--- OUTSIDE RECORDS SUMMARY | 2025-02-26 20:00 | XMS_ITS | Encounter Summary ---
Author Organization [facility] Address [address] [place] [address] Phone Care Team Providers Care Rib Puller Name Role Phone Generic Provider, No Assigned Pcp MD Primary Car e Provider Unavailable Encounter Details Date Type Department Care Team (Late st Contact Info) Description 02/08/2025 Abstract [facility] [address] [phone] Nakul Byrd MD [address] [facility], [address] [place] [address] Social History Tobacco Use Types Packs/Day Years Used Date Smoking Tobacco: Never Assessed Sex and Gender Information Value Date Recorded Sex Assigned at Not on file Legal Sex Male 10:20 AM EST Gender Identity Not on file Sexual Orientation Not on file COVID-19 Exposure Response Date Recorded In the last 10 days, have yo u been in contact with someone who was confirmed or suspected to have Coronavirus/COVID-19? No / Unsure 01/23/2025 12:38 PM EDT documented as of this encounter Plan of Treatment Not on file documented as of this encounter Visit Diagnoses Not on filedocumented in this encounter Care Teams Rib Puller Relationship Specialty Start Date End Date Generic Provider, No Assigned Pcp, [place] [address] PCP - General Material Combiner 05/23/24 documented as of this encounter
--- OUTSIDE RECORDS SUMMARY | 2025-02-26 20:00 | XMS_ITS | Encounter Summary ---
Author Organization [facility] Address [address] [place] [address] Phone Care Team Providers Care Director Hydrogen Storage Engineering Name Role Phone Generic Provider, No Assigned Pcp MD Primary Car e Provider Unavailable Encounter Details Date Type Department Care Team (Late st Contact Info) Description 12/15/2024 Transcribe Orders [facility] [place] [facility] [address] Nakul Byrd MD [address] [facility], [address] [place] [address] Mechanical loosening of internal left knee prosthetic joint, initial encounter (Primary Dx) Social History Tobacco Use Types Packs/Day Years Used Date Smoking Tobacco: Never Assessed Sex and Gender Information Value Date Recorded Sex Assigned at Not on file Legal Sex Male 10:20 AM EST Gender Identity Not on file Sexual Orientation Not on file documented as of this encounter Plan of Treatment Scheduled Orders Name Type Priority Associated Diagnoses Orde r Schedule Enroll patient in total knee replacement new local care plan Procedures Routine Mechanical loosening of internal left knee prosthetic joint, initial encounter Expected: 01/22/2025 (Approximate), Expires: 12/19/2025 documented as of this encounter Visit Diagnoses Diagnosis Mechanical loosening of internal left knee prosthetic joint, initial encounter- Primary documented in this encounter Care Teams Director Hydrogen Storage Engineering Relationship Specialty Start Date End Date Generic Provider, No Assigned Pcp, [place] [address] PCP - General Instrumentation Chemist 05/23/24 documented as of this encounter
--- OUTSIDE RECORDS SUMMARY | 2025-02-26 20:00 | XMS_ITS | Clinical Summary ---
Author Organization [facility] tem Address [id number] [address] [place] [address] Care Team Providers Care Associate Media Director Name Role Phone Андрей Goode DO Primary Care Provider [phone] Allergies Active Allergy Reactions Criticality Noted Date Comments Penicillins Facial Swelling 06/08/2018 Ketorolac Anxiety Low 10/23/2019 Tramadol 06/08/2018 Medications QUEtiapine (SEROquel) 200 mg tablet Take 200 mg by mouth nightly. Active VRAYLAR 3 mg capsule 3 mg daily. Take in the morning 08/11/20 19 Active chlordiazePOXIDE-c lidinium (LIBRAX) 5-2.5 mg per capsule 10/09/19 20 Active ergocalciferol (DRISDOL) 1,250 mcg (50,000 unit) capsule 10/05/19 20 Active lamoTRIgine (LaMICtal) 25 mg tablet 09/29/19 20 Active mirtazapine (REMERON) 15 mg tablet Take 15 mg by mouth nightly. 08/10/20 19 Active ondansetron ODT (ZOFRAN-ODT) 4 mg disintegrating tablet 09/28/19 20 Active lithium carbonate 300 mg capsule 09/14/19 20 Active oxyCODONE-acetamin ophen (PERCOCET) 5-325 mg per tabletIndications: Right upper quadrant abdominal pain Take 1 tablet by mouth every 6 (six) hours as needed for pain for up to 15 doses. Max Daily Amount: 4 tablets 15 tablet 10/31/19 20 Active Additional Information Patient not taking.Reported on 11/08/2019 Active Problems Problem Noted Date Diagnosed Date Medication overuse headache 09/22/2018 Narcotic drug use 09/22/2018 Localization-related epilepsy, intractable 09/21 Chronic pain syndrome 06/09/2018 Arachnoid cyst 06/09/2018 Degenerative disc disease, cervical 06/08/2018 Depression 06/08/2018 Bipolar 2 disorder 06/08/2018 Seizures, generalized convulsive 06/08/2018 Intractable migraine without aura and with status migrainosus 06/08/2018 Family History Medical History Relation Name Comments Diabetes Maternal Grandfather Prostate cancer Maternal Grandfather Relation Name Status Comments Father Other Maternal Grandfather Alive Mother Alive Social History Tobacco Use Types Packs/Day Years Used Date Smoking Tobacco: Former Cigarettes Q uit: 09/21/2018 Smokeless Tobacco: Never Alcohol Use Standard Drinks/Week Comments No 0 (1 standard drink = 0.6 oz pur e alcohol) AUDIT-C Answer Date Recorded Frequency of Alcohol Consumption Never 10/23/2019 Average Number of Drinks Not on file 020 Frequency of Binge Drinking Not on file 10/14 Childcare Answer Date Recorded Childcare Unknown 02/20/2019 Employment Answer Date Recorded Employment Unknown 02/20/2019 Purpose - Life Answer Date Recorded Purpose and direction in life Unknown Sex and Gender Information Value Date Recorded Sex Assigned at Not on file Legal Sex Male 12:17 PM EDT Gender Identity Not on file Sexual Orientation Not on file Last Filed Vital Signs Vital Sign Reading Time Taken Comments Blood Pressure 137/91 10/31/2019 11:33 AM EST Pulse 80 10/31/2019 11:33 AM EST Temperature 36.7 C (98.1 F) 10/31/2019 10:30 AM EST Respiratory Rate 13 10/31/2019 11:33 AM EST Oxygen Saturation 98% 10/31/2019 11:33 AM EST Inhaled Oxygen Concentration - - Weight 111.1 kg (245 lb) 11/08/2019 3:35 PM EST Height 190.5 cm (6' 3 ) 11/08/2019 3:35 PM EST Body Mass Index 30.62 11/08/2019 3:35 PM EST Plan of Treatment Health Maintenance Due Date Last Done Comments Depression Screening 1999 Tobacco Screening 1999 Adult BMI Screening 2005 DTaP,Tdap and Td Vaccines (1 - Tdap) 2006 Influenza Vaccine 05/14/2025 06/13/2019 Medical Devices Not on file Insurance [employer] Care Teams Associate Media Director Relationship Specialty Start Date End Date Андрей Goode DO PCP - General Family Medicine 06/08/18
--- OUTSIDE RECORDS SUMMARY | 2025-02-26 20:00 | XMS_ITS | Encounter Summary ---
Author Organization [facility] Address [address] [place] [address] Care Team Providers Care Core Driller Name Role Phone George Chaparro DO Unavailable [phone] Андрей Goode DO Primary Care Provider [phone] Raisa Cabrera PA-C Unavailable [phone] Source Comments In the event this information is protected by the Federal Confidentiality of Alcohol and Drug AbusePatient Records regulations: The Federal rules restrict any use of the information to criminally investigate or prosecute any alcohol or drug abuse patient.[facility] Encounter Details Date Type Department Care Team (Late st Contact Info) Description 04/27/2023 Get Medical Advice Orthopaedics [address] [phone] Toribio Hammond PA-C [address] [address] [place], [place] [phone] Call Social History Tobacco Use Types Packs/Day Years [...] is lower risk 8 01/13/2023 Data from: https://www.neighborhoodatlas.medicine.[facility].edu/. Last address used for calculation [address] [...] on filedocumented in this encounter Care Teams Core Driller Relationship Specialty Start Date End Date Андрей Goode DO [address] [place] [address] PCP - General Family Medicine 07/26/19 George Chaparro DO [address] [place] [phone] Referring Neurology 07/26/19 Raisa Cabrera PA-C [address] [place] [address] Referring Neurology 02/17/21 documented as of this encounter
--- OUTSIDE RECORDS SUMMARY | 2025-02-26 20:00 | XMS_ITS | Encounter Summary ---
Author Organization [facility] Address [address] [place] [address] Phone Care Team Providers Care Concrete Block Plant Supervisor Name Role Phone Generic Provider, No Assigned Pcp MD Primary Car e Provider Unavailable Reason for Referral * Cardiovascular (Routine) - Authorized Specialty Diagnoses / Procedures Referred By Contac t Referred To Contact Diagnoses Mechanical loosening of internal left knee prosthetic joint, initial encounter Procedures ECG 12 Lead Nakul Byrd MD [address] [facility], [address] [place] [address] Phone: tel: fax: Referral ID Status Reason Start Date Expiration Date V isits Requested Visits Authorized [id number] Authorized 12/19/2024 12/19/2025 1 1 Encounter Details Date Type Department Care Team (Late st Contact Info) Description 12/19/2024 Transcribe Orders [place] [address] [place] [address] Nakul Byrd MD [address] [facility], [address] [place] [id number] Mechanical loosening of internal left knee prosthetic [...] Type Priority Associated Diagnoses Orde r Schedule ECG 12 Lead ECG Routine Mechanical loosening of internal left knee prosthetic joint, initial encounter Expected: 01/22/2025 (Approximate), Expires: 12/19/2025 Staphylococcus aureus/MRSA colonization, Culture Microbiology Routine Mechanical loosening of internal left knee prosthetic joint, initial encounter Expected: 01/22/2025, Expires: 12/19/2025 Hemoglobin A1C Lab Routine Mechanical loosening of internal left knee prosthetic joint, initial encounter Expected: 01/22/2025 (Approximate), Expires: 12/19/2025 Protime-INR Lab Routine Mechanical loosening of internal left knee prosthetic joint, initial encounter Expected: 01/22/2025 (Approximate), Expires: 12/19/2025 Comprehensive Metabolic Panel Lab Routine Mechanical loosening of internal left knee prosthetic joint, initial encounter Expected: 01/22/2025 (Approximate), Expires: 12/19/2025 CBC and Auto Differential Lab Routine Mechanical loosening of internal left knee prosthetic joint, initial encounter Expected: 01/22/2025 (Approximate), Expires: 12/19/2025 documented as of this encounter Visit Diagnoses Diagnosis Mechanical loosening of internal left knee prosthetic joint, initial encounter- Primary documented in this encounter Care Teams Concrete Block Plant Supervisor Relationship Specialty Start Date End Date Generic Provider, No Assigned Pcp, [place] [address] PCP - General Denial Resolution Specialist 05/23/24 documented as of this encounter
--- OUTSIDE RECORDS SUMMARY | 2025-02-26 20:00 | XMS_ITS | Encounter Summary ---
Author Organization [facility] Address [address] [place] [address] Care Team Providers Care Business Management Professor Name Role Phone George Chaparro Win DO Unavailable [phone] Андрей Goode DO Primary Care Provider [phone] Raisa Cabrera PA-C Unavailable [phone] Source Comments In the event this information is protected by the Federal Confidentiality of Alcohol and Drug AbusePatient Records regulations: The Federal rules restrict any use of the information to criminally investigate or prosecute any alcohol or drug abuse patient.[facility] Encounter Details Date Type Department Care Team (Late st Contact Info) Description 04/30/2023 Get Medical Advice Orthopaedics [address] [phone] Toribio Hammond PA-C [address] [place], [place] [phone] Never heard back Social History Tobacco Use Types Packs/Day Years [...] is lower risk 8 01/13/2023 Data from: https://www.neighborhoodatlas.medicine.[facility].edu/. Last address used for calculation [address] [...] on filedocumented in this encounter Care Teams Business Management Professor Relationship Specialty Start Date End Date Андрей Goode DO [address] [place] [address] PCP - General Family Medicine 07/26/19 George Chaparro DO [address] [place] [phone] Referring Neurology 07/26/19 Raisa Cabrera PA-C [address] [place] [address] Referring Neurology 02/17/21 documented as of this encounter
--- OUTSIDE RECORDS SUMMARY | 2025-02-26 20:00 | XMS_ITS | Encounter Summary ---
Author Organization [facility] Address [address] [place] [address] Care Team Providers Care Vice President Business Development Name Role Phone George Chaparro DO Unavailable [phone] Андрей Goode DO Primary Care Provider [phone] Raisa Cabrera PA-C Unavailable [phone] Source Comments In the event this information is protected by the Federal Confidentiality of Alcohol and Drug AbusePatient Records regulations: The Federal rules restrict any use of the information to criminally investigate or prosecute any alcohol or drug abuse patient.[facility] Encounter Details Date Type Department Care Team (Late st Contact Info) Description 07/07/2023 Get Medical Advice Neurology Pain [address] [place] [phone] Yulissa Pierce PA-C [address] [place] [address] Naltrexone Social History Tobacco Use Types Packs/Day Years [...] is lower risk 8 01/13/2023 Data from: https://www.neighborhoodatlas.medicine.[facility].edu/. Last address used for calculation [address] [...] on filedocumented in this encounter Care Teams Vice President Business Development Relationship Specialty Start Date End Date Андрей Goode DO [address] [place] [address] PCP - General Family Medicine 07/26/19 George Chaparro DO [address] [place] [phone] Referring Neurology 07/26/19 Raisa Cabrera PA-C [address] [place] [address] Referring Neurology 02/17/21 documented as of this encounter
== END 2025-02-26 19:57 | disposition home or self-care (01) ==
LOC: SLEEP 19:56
PROVIDERS: PCP Nurse Practitioner Family; Visit Provider Nurse Practitioner Family
DX: G47.33 Obstructive sleep apnea (adult) (pediatric) (principal)
CPT/HCPCS: 95811

== ENCOUNTER 2025-03-06 11:48 | Outpatient (OUT) | payer OTHER, SELFPAY ==
--- OUTSIDE RECORDS SUMMARY | 2019-11-03 04:41 | XMS_ITS | Continuity of Care Document ---
Author Organization [facility] Address [address] [place] [address] Phone Care Team Providers Care Wrapper Layer Name Role Phone Андрей Goode DO Unavailable [...] OPT OBS Extract; Erupted Th/exposted Rt [address] [id number] Additional Aug Nowmwucch-ozkwhgsgbg-jywn Additional Aug Fgmjlhaon-pomcasdfrd-apzn Additional Aug Oral Hygiene Instruction Intraoral-periapical 1st Film 6 Limited Oral Eval Advance Directives Directive Yes / No Effective Date File Name No Information Encounters Encounter Description Practice Location Reason(s) For Visit Diagnoses Date Provider Providers Copied on Encounter [facility], [address] [place] [address], [id number] , [place] tel: [phone] [facility] No Information 0 Pavlock DO Max. [address] [place] [address], [id number] , [place]. tel: [phone] [facility], [address] [place] [address], [id number] , [place] tel: [phone] [facility] No Information 0 Pavlock DO Max. [address] [place] [address], [id number] , [place]. tel: [phone] OFFICE/OUTPA TIENT VISIT, [facility], [address] [place] [address], [id number] , [place] tel: [phone] [facility] f/u hospital (chief complaint)A bdominal pain (chief complaint) EsophagitisChronic bilateral low back pain, with sciatica presence unspecified 0 Pavlock DO Max. [address] [place] [address], [id number] , [place]. tel: [phone] OFFICE/OUTPA TIENT VISIT, [facility], [address] [place] [address], [id number] , [place] tel: [phone] [facility] F/U MED WEANING (chief complaint) Body mass index (BMI) 26.0-26.9, adultSeizureInsomnia , unspecified typeElevated liver enzymes 9 Pavlock DO Max. [address] [place] [address], [id number] , [place]. tel: [phone] OFFICE/OUTPA TIENT VISIT, [facility], [address], [place], [id number] , [place] tel: [phone] [facility] med refill (chief complaint)D RUG SCREEN (chief complaint) Body mass index (BMI) 26.0-26.9, adultChronic bilateral low back pain, with sciatica presence unspecifiedIntracran ial arachnoid cystFlank pain, acute [facility] DO Max. [address], [place], [id number] , [place]. tel: [phone] [facility], [address] [place] [address], [id number] , [place] tel: [phone] [facility] HURT/DISCOM FORT (chief complaint)D RUG SCREEN (chief complaint) Body mass index (BMI) 26.0-26.9, adultFlank pain, acuteChronic bilateral low back pain, with sciatica presence unspecified [facility] DO Max. [address] [place] [address], [id number] , [place]. tel: [phone] [facility], [address] [place] [address], [id number] , [place] tel: [phone] [facility] MED REFILL (chief complaint)D rug Screen (chief complaint) Body mass index (BMI) 28.0-28.9, adultOpioid use, unspecified, uncomplicatedIntracr anial arachnoid cystChronic bilateral low back pain, with sciatica presence unspecified 9 [facility] DO Max. [address], [place], [id number] , [place]. tel: [phone] OFFICE/OUTPA TIENT VISIT, [facility], [address], [place], [id number] , [place] tel: [phone] [facility] Medication refill (chief complaint)D rug Screen (chief complaint) Body mass index (BMI) 26.0-26.9, adultChronic bilateral low back pain, with sciatica presence unspecifiedOther chronic painAnxiety with depressionIntracrani al arachnoid cyst Dec- 9 [facility] DO Max. [address], [place], [id number] , [place]. tel: [phone] [facility], [address], [place], [id number] , [place] tel: [phone] [facility] med refill (chief complaint) Body mass index (BMI) 27.0-27.9, adultChronic bilateral low back pain, with sciatica presence unspecifiedAnxiety with depression 9 [facility] DO Max. [address], [place], [id number] , [place]. tel: [phone] [facility], [address] [place] [address], [id number] , [place] tel: [phone] [facility] EST CARE (chief complaint) Body mass index (BMI) 27.0-27.9, adultSeizureIntracra nial arachnoid cystChronic bilateral low back pain, with sciatica presence unspecifiedOther chronic painAnxiety with depression 9 [facility] DO Max. [address], [place], [id number] , [place]. tel: [phone] [facility], [address], [place], [id number] , [place] tel: [phone] [facility] Consult (chief complaint) No Information 9 [facility] DO Max. [address], [place], [id number] , [place]. tel: [phone] [facility], [address], [place], [id number] , [place] tel: [phone] Dental Clinic extraction (chief complaint) Encounter for screening for dental disorders 6 Mandujano Vega Reyes. [address] [place] [address], [id number], [place]. tel: [phone] [facility], [address] [place] [address], [id number] , [place] tel: [phone] Dental Clinic dental limited (chief complaint) Encounter for screening for dental disorders 6 Luke Concepcion. [address] [place] [address], [id number] , . tel:[phone] Family History Family Member Type Diagnosis Age At Onset Mother Problem (finding) Alive and well Father Problem (finding) Alive and well Sister Problem (finding) Alive and well Payers Payer name Insurance type Covered democrat ID Authoriza tion(s) Medicaid [facility] [id number] Social History Type Description Quantity Date Captured [...] Horne, Oxycodone 02/07 & Oxymorphone 01/09, & [place] 01/09TGrodi LPNPt states they will call pain management to help with his back, and his headaches are a little better but not much and he is still not sleeping well DRUG SCREEN Rapid urine drug screen performed, pt + for OXY BENZO, & MOPFentanyl 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 PT states the Flomax worked really well for him. He would like a refill on it. OARRS completed, last filled Xanax 02/[address] Horne, Oxymorphone 01/10 & [place] 01/09TGrodhira Preston discuss Pt flying and we told Pt as long as the plain is pressurized there is not a problem. 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 OARRS completed, last filled Oxymorphone 01/10, [place] 01/09, Xanax from Dr. Horne 01/01.TGrodhira Preston [...] work, dental work. Pt is seeing a Jesse neurologist and a neuro here. He said insurance is not going for it so wants your opinion on which to pick. Pt states he got a call from [facility] neurosurgery. He said that once they get his profile put together they will call him to set up an apt. He said [facility] is going to send those records. Pt is having more than normal pain on the L side of the face in the confucianist area, down to the ear/jaw. Pt states [...] 01/[address] Horne, Oxymorphone 12/13 & [place] 12/12TGrodi MICHELLE ,above was reviewed and agreed [...] completed, last filled Xanax 11/03, Oxymorphone 10/18, [place] 10/17TGrodi LPNPt states he just had his EEG with ROBERTO and has appointment next week EST CARE Pt here today to establish care and medication refills. Pt was previous pt of Dr. Goode at his [place] office. Pt brought in results of recent [...]
--- OUTSIDE RECORDS SUMMARY | 2024-01-24 11:15 | XMS_ITS ---
Author Organization [facility] Address [address] [place] [address] Care Team Providers Care Exhibit Artist Name Role Phone Alfreda Keller Primary Care Provider Francesca Garza [facility] [phone] REASON FOR VISIT PROPHY Encounters Encounter Location Date Provider Diagnosis [facility] [address] [place] [address] 01/24/2024 Francesca Garza Plan Of Treatment No Information Progress Notes * TAIWOBRIANOB:1985 ( 39 yo M)Acc No.[id number]:01/24/2024 Patient: LATIA ROOT Provider: Chandrakant Garza :1985 A ge:38 Y S ex:Male Date:01/24/2024 Address:[address] [id number] Pcp:Alfreda Rosen Subjective: * Chief Complaints: * 1 . PROPHY. * Medical History: Objective: * Vitals: Assessment: Plan: * Treatment: * Images: * Electronic signature of Nesha Garza on 03/06/2025 at 11:50 AM EDT Sign off status: Pending * Provider: Chandrakant Garza Date: 01/24/2024 Generated for Printi ng/Faxing/eTransmitting on: 03/06/2025 11:50 AM EDT
--- OUTSIDE RECORDS SUMMARY | 2025-01-12 10:30 | XMS_ITS ---
Author Organization [facility] Address [address] [place] [address] Care Team Providers Care Broach Setter Name Role Phone Alfreda Keller Primary Care Provider [phone] Elizabeth Conway Unavailable [phone] REASON FOR VISIT updated exam- wants to get retainer fixed (stated last time Dr. thomas the power went out so couldn't finish it) Encounters Encounter Location Date Provider [address] [place] [address] 01/12/2025 Elizabeth Conway Plan Of Treatment No Information Progress Notes * TAIWOBRIANOB:1985 ( 39 yo M)Acc No.[id number]:01/12/2025 Patient: LATIA ROOT Provider: Han Conway DDS :1985 A ge:39 Y S ex:Male Date:01/12/2025 Address:[address] [id number] Pcp:Alfreda Rosen Subjective: * Chief Complaints: * 1 . updated exam- wants to get retainer fixed (stated last time Dr. thomas the power went out so couldn't finish it). * Medical History: Objective: * Vitals: Assessment: Plan: * Treatment: * Images: * Electronic signature of Sharron Conway DDS on 03/06/2025 at 11:51 AM EDT Sign off status: Pending * Provider: Han Conway DDS Date: 0 01/12/2025 Generated for [employer] on: 0 03/06/2025 11:51 AM EDT
--- OUTSIDE RECORDS SUMMARY | 2025-02-09 11:30 | XMS_ITS ---
Author Organization [facility] Address [address] [place] [address] Care Team Providers Care Industrial Pharmacist Name Role Phone Alfreda Keller Primary Care Provider Elizabeth Conway [facility] [phone] REASON FOR VISIT UPDATED EXAM- partial eula, wants to talk about replacement Encounters Encounter Location Date Provider Diagnosis [address] [place] [address] 02/09/2025 Elizabeth Conway Plan Of Treatment No Information Progress Notes * TAIWOBRIANVIPIN:1985 ( 39 yo M)Acc No.[id number]:02/09/2025 Patient: LATIA ROOT Provider: Han Conway DDS :1985 A ge:39 Y S ex:Male Date:02/09/2025 Address:[address] [id number] Pcp:Alfreda Rosen Subjective: * Chief Complaints: * 1 . UPDATED EXAM- partial eula wants to talk about replacement. * Medical History: Objective: * Vitals: Assessment: Plan: * Treatment: * Images: * Electronic signature of Sharron Conway DDS on 03/06/2025 at 11:50 AM EDT Sign off status: Pending * Provider: Han Conway DDS Date: 0 02/09/2025 Generated for Cherry nelson/Mario/Traciitting on: 0 03/06/2025 11:50 AM EDT
--- OUTSIDE RECORDS SUMMARY | 2025-03-06 11:50 | XMS_ITS | Encounter Summary ---
Author Organization [facility] Address [address] [place] [address] Care Team Providers Care Store Clerk Cashier Name Role Phone George Chaparro Win DO Unavailable [phone] Андрей Goode DO Primary Care Provider [phone] Raisa Cabrera PA-C Unavailable [phone] Source Comments In the event this information is protected by the Federal Confidentiality of Alcohol and Drug AbusePatient Records regulations: The Federal rules restrict any use of the information to criminally investigate or prosecute any alcohol or drug abuse patient.[facility] Encounter Details Date Type Department Care Team (Late st Contact Info) Description 07/07/2023 Get Medical Advice Neurology Pain [address] [id number] Yulissa Pierce PA-C [address] [place] [address] Naltrexone Social History Tobacco Use [...] is lower risk 8 01/13/2023 Data from: https://www.neighborhoodatlas.medicine.[facility].edu/. Last address used for calculation [...] on filedocumented in this encounter Care Teams Store Clerk Cashier Relationship Specialty Start Date End Date Андрей Goode DO [address] [place] [address] PCP - General Family Medicine 07/26/19 George Chaparro DO [address] [place] [phone] Referring Neurology 07/26/19 Raisa Cbarera PA-C [address] [place] [address] Referring Neurology 02/17/21 documented as of this encounter
--- OUTSIDE RECORDS SUMMARY | 2025-03-06 11:50 | XMS_ITS | Clinical Summary ---
Author Organization [facility] Address [address] [place] [address] Care Team Providers Care Model Builder Name Role Phone KrystaEvens escobedodianne Walden DO Unavailable [phone] Андрей Goode DO Primary Care Provider [phone] Raisa Cabrera PA-C Unavailable [phone] Allergies Active Allergy Reactions Criticality Noted Date [...] is lower risk 8 01/13/2023 Data from: https://www.neighborhoodatlas.medicine.[facility].edu/. Last address used for calculation [...] Influenza Vaccine (Season Ended) 2025 06/13/20 Insurance [facility] Care Teams Model Builder Relationship Specialty Start Date End Date Андрей Goode DO [address] [place] [phone] PCP - General Family Medicine 07/26/19 George Chaparro DO [address] [address] Referring Neurology 07/26/19 Raisa Cabrera PA-C [address] [address] Referring Neurology 02/17/21
--- OUTSIDE RECORDS SUMMARY | 2025-03-06 11:50 | XMS_ITS | Encounter Summary ---
Author Organization [facility] Address [address] [place] [address] Care Team Providers Care Quality Systems Technician Name Role Phone George Chaparro Win DO Unavailable [phone] Андрей Goode DO Primary Care Provider [phone] Raisa Cabrera PA-C Unavailable [phone] Source Comments In the event this information is protected by the Federal Confidentiality of Alcohol and Drug AbusePatient Records regulations: The Federal rules restrict any use of the information to criminally investigate or prosecute any alcohol or drug abuse patient.[facility] Encounter Details Date Type Department Care Team (Late st Contact Info) Description 03/12/2023 Get Medical Advice Orthopaedics [address] [phone] Toribio Hammond PA-C [address] [place], [place] [phone] Results Social History Tobacco Use Types Packs/Day [...] is lower risk 8 01/13/2023 Data from: https://www.neighborhoodatlas.medicine.[facility].edu/. Last address used for calculation [address] [...] on filedocumented in this encounter Care Teams Quality Systems Technician Relationship Specialty Start Date End Date Андрей Goode DO [address] [place] [address] PCP - General Family Medicine 07/26/19 George Chaparro DO [address] [place] [phone] Referring Neurology 07/26/19 Raisa Cabrera PA-C [address] [place] [address] Referring Neurology 02/17/21 documented as of this encounter
--- OUTSIDE RECORDS SUMMARY | 2025-03-06 11:51 | XMS_ITS | Clinical Summary ---
Author Organization [facility] Address [address] [place] [address] Care Team Providers Care Loader Operator Supervisor Name Role Phone Hayde Ivory MD Unavailable [phone] Jamey Lucero MD Primary Care Provider [phone] Allergies Active Allergy Reactions Criticality Noted Date Comments Ketorolac Anxiety Low 10/23/2019 Seizure Penicillins Swelling 06/08/2018 Tramadol 06/08/2018 Mental Status Change Medications SEROquel 400 MG tablet 2 tablets Active traZODone (Desyrel) 100 MG tablet Take 100 mg by mouth as needed at bedtime for sleep. Active LaMICtal 100 MG tablet 1 tablet Orally three times daily Active methocarbamol (Robaxin) 750 MG tablet Take 750 mg by mouth 4 (four) times a day as needed. 01/13/2023 Active DULoxetine (Cymbalta) [address] capsule Take 60 mg by mouth Daily 01/04/2024 Active nabumetone (Relafen) 500 MG tabletIndicatio ns:Acute pain of left knee Take 1 tablet (500 mg) by mouth in the morning and 1 tablet (500 mg) before bedtime. 60 tablet 11 04/28/2024 5 Active Active Problems No known active problems Family History Relation Name Status Comments Father Alive Social History Tobacco Use Types Packs/Day Years Used Date Smoking Tobacco: Former Cigarettes Alcohol Use Standard Drinks/Week Comments Yes 0 (1 standard drink = 0.6 oz pur e alcohol) Sex and Gender Information Value Date Recorded Sex Assigned at Not on file Legal Sex Male 6:44 PM EDT Gender Identity Not on file Sexual Orientation Not on file Last Filed Vital Signs Vital Sign Reading Time Taken Comments Blood Pressure 160/100 06/12/2022 12:00 PM EDT Pulse - - Temperature - - Respiratory Rate - - Oxygen Saturation - - Inhaled Oxygen Concentration - - Weight 107 kg (236 lb) 07/28/2023 10:07 AM EST Height 190.5 cm (6' 3 ) 07/28/2023 10:07 AM EST Body Mass Index 29.5 07/28/2023 10:07 AM EST Plan of Treatment Not on file Insurance [employer] Care Teams Loader Operator Supervisor Relationship Specialty Start Date End Date Jamey Lucero MD [address] [place] [address] [phone] PCP - General Family Medicine 07/28/23 Hayde Ivory MD [address] [place] [address] Referring Physician Family Medicine 07/28/23
--- OUTSIDE RECORDS SUMMARY | 2025-03-06 11:51 | XMS_ITS | Clinical Summary ---
Author Organization [facility] Address [address] [place] [address] Care Team Providers Care Sorority Mother Name Role Phone None, Provided MD Primary Care Provider Unavaila ble Allergies Active Allergy Reactions Criticality Noted Date Comments Ketorolac Anxiety,Other Low 10/23/2019 Other Reaction(s): Other: See Comments, Unknown seizure seizure Penicillins Swelling 06/08/2018 Other reaction(s): Facial Swelling Other Reaction(s): Unknown Tramadol Other 06/08/2018 Other Reaction(s): Mental Status Change, Unknown Medications ARIPiprazole (Abilify) 10 mg tablet Take 10 mg by mouth in the morning. 07/14/2023 Active atomoxetine (Strattera) 60 mg capsule Take 60 mg by mouth in the morning. 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 No 08/19/2023 Emotionally Abused Not on file 08/19/2023 Physically Abused Not on file 08/19/2023 Sexually Abused Not on file 08/19/2023 AUDIT-C Answer Date Recorded Q1: How often do you have a drink containing alcohol? Never 08/16/2023 Q2: How many drinks containi ng alcohol do you have on a typical day when you are drinking? Patient does not drink Q3: How often do you have si x or more drinks on one occasion? Never 08/16/2023 Overall Financial Resource Strain (CARDIA) Answe r Date Recorded How hard is it for you to pa y for the very basics like food, housing, medical care, and heating? Not very hard 08/19/2023 PHQ-2 Answer Date Recorded Patient Health Questionnaire-2 Score 0 08/19/2023 [facility] Occupat ional Health - Occupational Stress Questionnaire Answer Date Recorded Do you feel stress - tense, restless, nervous, or anxious, or unable to sleep at night because your mind is troubled all the time - these days? Very much 08/16/2023 Exercise Vital Sign Answer Date Recorde d On average, how many days pe r week do you engage in moderate to strenuous exercise (like a brisk walk)? 3 days 08/16/2023 On average, how many minutes do you engage in exercise at this level? 60 min 08/16/2023 Housing Stability Vital Sign Answer Ashish e Recorded In the last 12 months, was t here a time when you were not able to pay the mortgage or rent on time? No 08/19/2023 Number of [address] Lived in the Last Year Not on f ile 08/19/2023 In the last 12 months, was t here a time when you did not have a steady place to sleep or slept in a longterm (including now)? No 08/19/2023 Transportation Answer Date Recorded In the past 12 months, has l ack of transportation kept you from medical appointments or from getting medications? No 08/19/2023 Lack of Transportation (Non-Medical) Not on file 08/19/2023 Housing Stability Vital Sign Answer Ashish e Recorded In the last 12 months, was t here a time when you were not able to pay the mortgage or rent on time? No 08/16/2023 Number of Times Moved in the Last Year Not on fi le 08/16/2023 Homeless in the Last Year Not on file 2022 Hunger Vital Sign Answer Date Recorded Within the past 12 months, y ou worried that your food would run out before you got the money to buy more. Never true 08/19/20 23 Ran Out of Food in the Last Year Not on file 08/19/2023 Sex and Gender Information Value Date Recorded Sex Assigned at Not on file Legal Sex Male 11:24 PM EDT Gender Identity Not on file Sexual Orientation Not on file Plan of Treatment Health Maintenance Due Date Last Done Comments Depression Screening 1999 Varicella Vaccines (1 of 2 - 13+ 2-dose series) 2000 Hepatitis B Vaccines (1 of 3 - 19+ 3-dose series) 2006 Adult Tetanus 2009 Influenza Vaccine (Season Ended) 2025 06/13/20 19 Zoster Vaccines (1 of 2) 2037 HIB Vaccines Aged Out No longer eligi ble based on patient's age to complete this topic HPV Vaccines Aged Out No longer eligi ble based on patient's age to complete this topic IPV Vaccines Aged Out No longer eligi ble based on patient's age to complete this topic Meningococcal B Vaccine Aged Out No l onger eligible based on patient's age to complete this topic Meningococcal Vaccine Aged Out No tiara bertha eligible based on patient's age to complete this topic Pneumococcal Vaccine: Pediat rics (0 to 5 Years) and At-Risk Patients (6 to 64 Years) Aged Out No longer eligi ble based on patient's age to complete this topic Rotavirus Vaccines Aged Out No longer eligible based on patient's age to complete this topic Insurance [employer] [place] [employer] Care Teams Sorority Mother Relationship Specialty Start Date End Date None, MD Uzma PCP - General 08/19/23
--- OUTSIDE RECORDS SUMMARY | 2025-03-06 11:51 | XMS_ITS | Encounter Summary ---
Author Organization [facility] Address [address] [place] [address] Phone Care Team Providers Care Ornamental Plasterer Helper Name Role Phone Generic Provider, No Assigned Pcp MD Primary Car e Provider Unavailable Encounter Details Date Type Department Care Team (Late st Contact Info) Description 12/15/2024 Transcribe Orders [facility] [place] [facility] [place] [address] Nakul Byrd MD [address] [facility], [address] [place] [address] Mechanical loosening of internal left knee [...] Primary documented in this encounter Care Teams Ornamental Plasterer Helper Relationship Specialty Start Date End Date Generic Provider, No Assigned Pcp, [place] [address] PCP - General Grease And Tallow Pumper 05/23/24 documented as of this encounter
--- OUTSIDE RECORDS SUMMARY | 2025-03-06 11:51 | XMS_ITS | Encounter Summary ---
Author Organization [facility] Address [address] [place] [address] Care Team Providers Care Felt Checker Name Role Phone George Chaparro Win DO Unavailable [phone] Андрей Goode DO Primary Care Provider [phone] Raisa Cabrera PA-C Unavailable [phone] Source Comments In the event this information is protected by the Federal Confidentiality of Alcohol and Drug AbusePatient Records regulations: The Federal rules restrict any use of the information to criminally investigate or prosecute any alcohol or drug abuse patient.[facility] Encounter Details Date Type Department Care Team (Late st Contact Info) Description 04/30/2023 Get Medical Advice Orthopaedics [address] [id number] Toribio Hammond PA-C [address] [place], [place] [phone] Never heard back Social History Tobacco Use [...] risk 8 01/13/2023 Data from: https://www.neighborhoodatlas.medicine.[facility].edu/. Last address used for calculation [...] on filedocumented in this encounter Care Teams Felt Checker Relationship Specialty Start Date End Date Андрей Goode DO [address] [place] [address] PCP - General Family Medicine 07/26/19 George Chaparro DO [address] [place] [phone] Referring Neurology 07/26/19 Raisa Cabrera PA-C [address] [place] [address] Referring Neurology 02/17/21 documented as of this encounter
--- OUTSIDE RECORDS SUMMARY | 2025-03-06 11:51 | XMS_ITS | Patient Health Record ---
Author Organization [facility] Address [address] [place] [address] Care Team Providers Care Blueprint Blocker Name Role Phone Alfreda Keller Primary Care Provider Elizabeth Conway Unavailable [phone] Allergies Allergen (clinical drug ingredient) Drug/Non Drug [...] every 8 hrs for 30 day(s) Active Effie Carbonate 300 MG TAKE 1 CAPSULE BY [...] Status W/U Status Risk Notes Problem Insomnia (G47.00) Active confirmed Problem Anxiety (14531747) Anxiety (F41.9) Active confirmed Problem Bipolar disorder (29498732) Bipolar disorder (F31.9) Active confirmed Problem [id number] BMI 32.0-32.9,jess lt (Z68.32) Active confirmed Plan Of Treatment No Information Insurance Providers Payer Name Payer Address Payer Phone Subscriber Number Group Number Insured Name Patient Relationship to Insured Coverage Start Date Coverage End Date [employer] ID Medicaid [address] [place] [address] [id number] LATIA MARAVILLA Self - patient is the insured 3 Wrap ABD [employer] e [address] [place] [address] [id number] TAIWOLATIA Self - patient is the insured 3 [facility] [employer] E-termed 22 [address] [place] [address] [id number] TAIWOLATIA Self - patient is the insured 0 3 [facility] Medicaid ABD after [employer] E-termed 22 [address] [place] [address] [id number] LATIA MARAVILLA Self - patient is the insured 0 3 zDENTAL DQ [employer] E-termed 22 [address] [place] [address] [id number] LATIA MARAVILLA Self - patient is the insured 1 3 zDental Medicaid ABD after [employer] E-termed 22 [address] [place] [address] [phone] [id number] LATIA MARAVILLA Self - patient is the insured 1 3 Dental [employer] [place] [address] [place] [address] [id number] LATIA MARAVILLA Self - patient is the insured 3 Dental Wrap ABD [employer] [address] [place] [address] [phone] [id number] LATIA MARAVILLA Self - patient is the insured 3 Medical (General) History Medical History History ICD Code bipolar arachnoid cyst Surgical History Surgery Date(Month/Year) tonsillectomy 1992 cholecystectomy 2019 knee surgery 2019 back surgery 2020 Hospitalization History Reason Date(Month/Year) psychiatric x 4 back injury 2010
--- OUTSIDE RECORDS SUMMARY | 2025-03-06 11:51 | XMS_ITS | Encounter Summary ---
Author Organization [facility] Address [address] [place] [address] Care Team Providers Care Aircraft De Icer Installer Name Role Phone None, Provided Primary Care Provider Unavaila ble Reason for Visit * Reason Comments Med Refill Encounter Details Date Type Department Care Team (Late st Contact Info) Description 07/05/2022 Refill [facility] [address] [place] [address] [place] [phone] Alphonso Sorensen MD [address] [place] [address] Sacrococcygeal disorders, not elsewhere classified Social History Tobacco Use Types Packs/Day Years Used Date Smoking Tobacco: Never Assessed Sex and Gender Information Value Date Recorded Sex Assigned at Not on file Legal Sex Male 11:24 PM EDT Gender Identity Not on file Sexual Orientation Not on file documented as of this encounter Plan of Treatment Not on file documented as of this encounter Visit Diagnoses Diagnosis Sacrococcygeal disorders, not elsewhere classified documented in this encounter Care Teams Aircraft De Icer Installer Relationship Specialty Start Date End Date None, Provided, PCP - General 08/19/23 documented as of this encounter
--- OUTSIDE RECORDS SUMMARY | 2025-03-06 11:51 | XMS_ITS | Referral Summary ---
Author Organization [facility] Address [address] [place] [address] Care Team Providers Care Dairy Nutrition Consultant Name Role Phone None, Provided MD Primary [...] Recorded Patient Health Questionnaire-2 Score 0 08/19/2023 [facility] Occupat ional Health - Occupational Stress [...] place to sleep or slept in a residential (including now)? No 08/19/2023 Transportation Answer Date [...] Orientation Not on file Plan of Treatment Not on file Insurance [employer] [place] [employer] Care Teams Dairy Nutrition Consultant Relationship Specialty Start Date End Date None, ProvidedMD PCP - General 08/19/23
--- OUTSIDE RECORDS SUMMARY | 2025-03-06 11:51 | XMS_ITS | Clinical Summary ---
Author Organization [facility] Address [address] [place] [address] Phone Care Team Providers Care Banquet Kitchen Supervisor Name Role Phone Generic Provider, No [...] Type Department Care Team Description 02/08/2025 Abstract [facility] [address] [place] [place] [phone] Nakul Byrd MD 01/23/2025 1:05 PM EDT - 01/23/2025 11:59 PM EDT Hospital Encounter [facility] [address] [place] [phone] Left knee pain, unspecified chronicity Discharge Disposition: Home 01/23/2025 1:05 PM EDT - 01/23/2025 11:59 PM EDT Hospital Encounter [facility] [address] [place] [phone] Right knee pain, unspecified chronicity Discharge Disposition: Home 01/23/2025 1:00 PM EDT Office Visit [facility] [address] [place] [phone] Nakul Byrd MD Primary osteoarthritis of right knee (Primary Dx); Left knee pain, unspecified chronicity; Right knee pain, unspecified chronicity 01/23/2025 Travel 12/19/2024 Transcribe Orders [address] [place] [address] Nakul Byrd MD Mechanical loosening of internal left knee prosthetic joint, initial encounter (Primary Dx) 12/15/2024 Transcribe Orders [facility] OR [address] [place] [address] Nakul Byrd MD Mechanical loosening of internal [...] Procedure Name Priority Date/Time Associated Diagnosis Comments [place] ARTHROCENTESIS ASPIR&/INJ MAJOR JT/BURSA W/O US Routine 01/23/2025 1:51 PM EDT Right knee pain, unspecified chronicity XR KNEE RIGHT 4+ VIEWS Routine 1:22 PM EDT Right knee pain, unspecified chronicity XR KNEE 3 VIEWS LEFT Routine 01/23/2025 1:22 PM EDT Left knee pain, unspecified chronicity from Last 3 Months Results * [place] ARTHROCENTESIS ASPIR&/INJ MAJOR JT/BURSA W/O US (01/23/2025 [...] to verify the correct patient, procedure, equipment, donor support technician and site/side marked as required. Patient was prepped and draped in the usual sterile fashion. Nakul Byrd MD IN CLINIC/BEDSIDE ORDERAB LES Final Result * XR knee right 4+ views (01/23/2025 1:22 PM EDT) Anatomical Region Laterality Modality Musculoskeletal Right Computed Radiogr aphy 01/23/2025 1:46 PM EDT 01/23/2025 1:46 PM EDT Narrative 01/23/2025 1:45 PM EDT Interpreted By: Nakul Byrd, STUDY: XR KNEE RIGHT 4+ VIEWS; 01/23/2025 1:22 pm INDICATION: Signs/Symptoms:pain. ACCESSION NUMBER(S): [id number] ORDERING CLINICIAN: NAKUL BYRD FINDINGS: Right knee weightbearing four views. Mild medial joint space narrowing mild knee effusion no signs of fracture dislocation or other bony abnormality Signed by: Nakul Byrd 01/23/2025 1:45 PM Dictation workstation: [id number] Procedure Note Nakul Byrd MD - 01/23/2025 Interpreted By: Nakul Byrd, STUDY: XR KNEE RIGHT 4+ VIEWS; 01/23/2025 1:22 pm INDICATION: Signs/Symptoms:pain. ACCESSION NUMBER(S): [id number] ORDERING CLINICIAN: NAKUL BYRD FINDINGS: Right knee weightbearing four views. Mild medial joint space narrowing mild knee effusion no signs of fracture dislocation or other bony abnormality Signed by: Nakul Byrd 01/23/2025 1:45 PM Dictation workstation: [id number] Nakul Byrd MD IMG XR PROCEDURES Final R esult * XR knee left 3 views (01/23/2025 1:22 PM EDT) Anatomical Region Laterality Modality Musculoskeletal Left Computed Radiogr aphy 01/23/2025 1:46 PM EDT 01/23/2025 1:46 PM EDT Narrative 01/23/2025 1:45 PM EDT Interpreted By: Nakul Byrd STUDY: XR KNEE LEFT 3 VIEWS; 01/23/2025 1:22 pm INDICATION: Signs/Symptoms:pain. ACCESSION NUMBER(S): [id number] ORDERING CLINICIAN: NAKUL BYRD FINDINGS: Three views left knee. Status post cemented total knee replacement subtle lucency along the tibial component unchanged from previous x-ray no evidence of fracture dislocation or other bony abnormality Signed by: Nakul Byrd 01/23/2025 1:45 PM Dictation workstation: [id number] Procedure Note Nakul Byrd MD - 01/23/2025 Interpreted By: Nakul Byrd STUDY: XR KNEE LEFT 3 VIEWS; 01/23/2025 1:22 pm INDICATION: Signs/Symptoms:pain. ACCESSION NUMBER(S): [id number] ORDERING CLINICIAN: NAKUL BYRD FINDINGS: Three views left knee. Status post cemented total knee replacement subtle lucency along the tibial component unchanged from previous x-ray no evidence of fracture dislocation or other bony abnormality Signed by: Nakul Byrd 01/23/2025 1:45 PM Dictation workstation: [id number] Nakul Byrd MD IMG XR PROCEDURES Final R esult from Last 3 Months Insurance [facility] AGED BLIND AND DISABLED Care Teams Banquet Kitchen Supervisor Relationship Specialty Start Date End Date Generic Provider, No Assigned Pcp, [place] [address] PCP - General Director Of Direct Marketing 05/23/24
--- OUTSIDE RECORDS SUMMARY | 2025-03-06 11:51 | XMS_ITS | Clinical Summary ---
Author Organization [facility] Address [id number] [address] [place] [address] Care Team Providers Care Malted Milk Supervisor Name Role Phone Андрей Goode DO Primary Care Provider [phone] Allergies Active Allergy Reactions Criticality Noted Date [...] on file Insurance [employer] Care Teams Malted Milk Supervisor Relationship Specialty Start Date End Date Андрей Goode DO PCP - General Family Medicine 06/08/18
--- OUTSIDE RECORDS SUMMARY | 2025-03-06 11:51 | XMS_ITS | Encounter Summary ---
Author Organization [facility] Address [address] [place] [address] Phone Care Team Providers Care Lead Technical Architect Name Role Phone Generic Provider, No Assigned Pcp MD Primary Car e Provider Unavailable Reason for Referral * Cardiovascular (Routine) - Authorized Specialty Diagnoses / Procedures Referred By Contac t Referred To Contact Diagnoses Mechanical loosening of internal left knee prosthetic joint, initial encounter Procedures ECG 12 Lead Nakul Byrd MD [address] [facility], [address] [place] [address] Phone: tel: fax: Referral ID Status Reason Start Date Expiration Date V isits Requested Visits Authorized [id number] Authorized 12/19/2024 12/19/2025 1 1 Encounter Details Date Type Department Care Team (Late st Contact Info) Description 12/19/2024 Transcribe Orders [place] [address] [place] [phone] Nakul Byrd MD [address] [facility], [address] [place] [address] [phone] Mechanical loosening of internal left knee prosthetic [...] Primary documented in this encounter Care Teams Lead Technical Architect Relationship Specialty Start Date End Date Generic Provider, No Assigned Pcp, [place] [address] PCP - General Design Painter 05/23/24 documented as of this encounter
--- OUTSIDE RECORDS SUMMARY | 2025-03-06 11:51 | XMS_ITS | Encounter Summary ---
Author Organization [facility] Address [address] [place] [address] Care Team Providers Care Crnp Name Role Phone George Chaparro Win DO Unavailable [phone] Андрей oGode DO Primary Care Provider [phone] Raisa Cabrera PA-C Unavailable [phone] Source Comments In the event this information is protected by the Federal Confidentiality of Alcohol and Drug AbusePatient Records regulations: The Federal rules restrict any use of the information to criminally investigate or prosecute any alcohol or drug abuse patient.[facility] Encounter Details Date Type Department Care Team (Late st Contact Info) Description 04/27/2023 Get Medical Advice Orthopaedics [address] [phone] Toribio Hammond PA-C [address] [place], [place] [phone] Results Social History Tobacco Use Types Packs/Day [...] is lower risk 8 01/13/2023 Data from: https://www.neighborhoodatlas.medicine.[facility].edu/. Last address used for calculation [...] on filedocumented in this encounter Care Teams Crnp Relationship Specialty Start Date End Date Андрей Goode DO [address] [place] [address] PCP - General Family Medicine 07/26/19 George Chaparro DO [address] [place] [phone] Referring Neurology 07/26/19 Raisa Cabrera PA-C [address] [place] [address] Referring Neurology 02/17/21 documented as of this encounter
--- OUTSIDE RECORDS SUMMARY | 2025-03-06 11:51 | XMS_ITS | Encounter Summary ---
Author Organization [facility] Address [address] [place] [address] Care Team Providers Care Hotel Receptionist Name Role Phone Hayde Ivory MD Unavailable [phone] Jamey Lucero MD Primary Care Provider [phone] Encounter Details Date Type Department Care Team (Late st Contact Info) Description 07/12/2023 External Result Encounter [facility] External Department Unsolicited Jr. Eduar Gregorio DO [address] [facility] [address] [place] [address] Social History Tobacco Use Types Packs/Day Years [...] on file documented as of this encounter Procedures Procedure Name Priority Date/Time Associated Diagnosis Comments NM BONE AND OR JOINT 3 PHASE 32596 07/12/2023 2:29 PM EDT documented in this encounter Results * NM BONE AND OR JOINT 3 PHASE 60195 (07/12/2023 2:29 PM EDT) Anatomical Region Laterality Modality Radiographic Yary ging 07/12/2023 2:29 PM EDT Impressions 08/18/2023 11:59 AM EST LEFT knee hyperemia. Increased immediate and delayed uptake of the LEFT knee surrounding the hardware greater in the femoral region. This may related to loosening which is greatest in the femoral component. No significant asymmetry is seen to suggest infectious etiology however is not entirely excluded. Impression dictated by: Ke Lai M.D.07/12/2023 2:40 PM Dictation Location: [place] [address] Transcribed By: [facility] 07/12/23 1440 Dictated By: Ke Lai DO 07/12/23 1429 Signed By: <Electronically signed by Ke Lai DO in OV> 07/12/23 1440 Narrative 08/18/2023 11:59 AM EST [place] [address] Nuclear Medicine Report Signed Patient: Porter Peters MR#: [id number] 3 : 1985 Acct:[id number] Age/Sex: 37 / M ADM Date: 07/12/23 Loc: NM Room: Type: REG CLI Attending Dr: Eduar Gregorio Jr DO Copies to: DO Ming Hobbs Jr, Jeffrey S DO Ordering Provider: Eduar Gregorio Jr, DO Date of Service: 07/12/23 KENNETH/NM bone 3 phase: M25.562 THREE-PHASE BONE SCAN [...] is present with immediate and delayed imaging. NM/KENNETH bone 3 phase Procedure Note Radiology, Radiologist, MD - 08/18/2023 [place] [address] Nuclear Medicine Report Signed Patient: Porter Peters JMR#: [id number] 3 : 1985Acct:[id number] Age/Sex: 37 / MADM Date: 07/12/23 Loc: NM Room:Type: REG CLI Attending Dr: Eduar Gregorio Jr DO Copies to: DO Ming Hbobs Jr, Jeffrey S DO Ordering Provider: Eduar Gregorio Jr, DO Date of Service: 07/12/23 NM/NM bone 3 phase: M25.562 THREE-PHASE BONE SCAN TECHNIQUE: 23.3 mCi of 99M technetium labeled MDP administered intravenously. Flow, immediate and delayed planar imaging performed. Imaging obtained of the knees COMPARISON: Plain film imaging 06/05/22 HISTORY: LEFT knee pain. LEFT knee replacement one year ago. Continuedpain. FINDINGS: Hyperemia of the the LEFT knee Increased uptake surrounds the LEFT knee arthroplasty greatest in thefemoral component. This is present with immediate and delayed imaging. NM/NM bone 3 phase IMPRESSION: LEFT knee hyperemia. Increased immediate and delayed uptake of the LEFTknee surrounding the hardware greater in the femoral region. This may relatedto loosening which is greatest in the femoral component. No significant asymmetry is seen tosuggest infectious etiology however is not entirely excluded. Impression dictated by: Ke Lai M.D.07/12/2023 2:40 PM Dictation Location: [place] [address] Transcribed By: [facility] 07/12/23 1440 Dictated By: Ke Lai DO 07/12/23 1429 Signed By: <Electronically signed by Ke Lai DO in OV> 07/12/23 1440 Jr. Eduar Gregorio DO IMG XR PROCEDURES Final Result documented in this encounter Visit Diagnoses Not on filedocumented in this encounter Care Teams Hotel Receptionist Relationship Specialty Start Date End Date Jamey Lucero MD [address] [place] [phone] PCP - General Family Medicine 07/28/23 Hayde Ivory MD [address] [place] [address] Referring Physician Family Medicine 07/28/23 documented as of this encounter
--- OUTSIDE RECORDS SUMMARY | 2025-03-06 11:51 | XMS_ITS | Encounter Summary ---
Author Organization [facility] Address [address] [place] [address] Care Team Providers Care Building Services Supervisor Name Role Phone George Chaparro DO Unavailable [phone] Андрей Goode DO Primary Care Provider [phone] Raisa Cabrera PA-C Unavailable [phone] Source Comments In the event this information is protected by the Federal Confidentiality of Alcohol and Drug AbusePatient Records regulations: The Federal rules restrict any use of the information to criminally investigate or prosecute any alcohol or drug abuse patient.[facility] Encounter Details Date Type Department Care Team (Late st Contact Info) Description 04/27/2023 Get Medical Advice Orthopaedics [address] [phone] Toribio Hammond PA-C [address] [place], [place] [phone] Call Social History Tobacco Use Types Packs/Day [...] is lower risk 8 01/13/2023 Data from: https://www.neighborhoodatlas.medicine.[facility].edu/. Last address used for calculation [address] [...] on filedocumented in this encounter Care Teams Building Services Supervisor Relationship Specialty Start Date End Date Андрей Goode DO [address] [place] [address] PCP - General Family Medicine 07/26/19 George Chaparro DO [address] [place] [phone] Referring Neurology 07/26/19 Raisa Cabrera PA-C [address] [place] [address] Referring Neurology 02/17/21 documented as of this encounter
--- OUTSIDE RECORDS SUMMARY | 2025-03-06 11:51 | XMS_ITS | Encounter Summary ---
Author Organization [facility] Address [address] [place] [address] Care Team Providers Care Technician Plant And Maintenance Name Role Phone George Chaparro Win DO Unavailable [phone] Андрей Goode DO Primary Care Provider [phone] Raisa Cabrera PA-C Unavailable [phone] Source Comments In the event this information is protected by the Federal Confidentiality of Alcohol and Drug AbusePatient Records regulations: The Federal rules restrict any use of the information to criminally investigate or prosecute any alcohol or drug abuse patient.[facility] Encounter Details Date Type Department Care Team (Late st Contact Info) Description 05/03/2024 Patient Msg Neurology [address] [phone] Provider, [facility] Ketamine infusions Social History Tobacco [...] is lower risk 8 01/13/2023 Data from: https://www.neighborhoodatlas.[facility]/. Last address used for calculation [address] [...] on filedocumented in this encounter Care Teams Technician Plant And Maintenance Relationship Specialty Start Date End Date Андрей Goode DO [address] [place] [address] PCP - General Family Medicine 07/26/19 George Chaparro DO [address] [phone] Referring Neurology 07/26/19 Raisa Cabrera PA-C [address] [place] [address] Referring Neurology 02/17/21 documented as of this encounter
== END 2025-03-06 11:49 | disposition home or self-care (01) ==
LOC: PST 11:48
PROVIDERS: PCP Nurse Practitioner Family; Visit Provider Surgery
DX: Z01.818 Encounter for other preprocedural examination (principal); R19.4 Change in bowel habit; R10.31 Right lower quadrant pain; K62.5 Hemorrhage of anus and rectum; Z12.11 Encounter for screening for malignant neoplasm of colon

== ENCOUNTER 2025-04-04 07:09 | Day surgery (SDC) | payer OTHER, SELFPAY ==
--- NOTE | 2025-04-04 | OP_ITS ---
OPERATION DATE: 04/04/2025 PREOPERATIVE DIAGNOSIS: Change in bowel habits, rectal bleeding, right sided abdominal pain. POSTOPERATIVE DIAGNOSIS: Normal colonoscopy to terminal ileum. PROCEDURE: Colonoscopy to terminal ileum. SURGEON: Taz Molina M.D. ANESTHESIA: Monitored anesthesia care. ESTIMATED BLOOD LOSS: Zero. INDICATIONS AND CONSENT: Patient is a 39-year-old male with a several month history of intermittent right side abdominal pain, frequent loose stools, as well as rectal bleeding. Indications, risks, benefits, alternatives of proceeding with colonoscopy were explained extensively to the patient, including the risks of bleeding, colon perforation or anesthetic complications. All of his questions were answered. Informed consent was obtained. PROCEDURE: Patient brought to the operating room, placed in the left lateral decubitus position. Monitored anesthesia care was provided. Rectal exam was performed which showed no masses or blood. The scope was inserted into the anal canal. Under direct visualization was advanced. It was advanced to the cecum where cecal markings were clearly identified. The terminal ileum was intubated and was normal. Upon withdrawal of the scope, mucosal surfaces were carefully examined. There were no mass lesions or polyps. No inflammatory changes or ulcerations. No significant diverticulosis. The scope was retroflexed in the anal canal. There was no significant hemorrhoidal disease. No old or new blood. The scope was then withdrawn. Patient tolerated procedure well, was sent to recovery room in good condition.f/u screening colonoscopy in 10 years CC: YVON Hernandez
--- OUTSIDE RECORDS SUMMARY | 2025-04-04 07:13 | XMS_ITS | CCD ---
Author Organization [facility] Care Team Providers Care Engraver Set Up Operator Name Role Phone Unavailable Unavailable Unavailable Trey [...] Unava DO Jelena Larose Jr Attending Provider SHEA PLASENCIA Attending Unavailable PLASENCIA, SHEA Referring Unavailable [facility]LOCK, [facility] Primary Care Unavailable PLASENCIA, SHEA Referring Unavailable PAVLOCK, [facility] Primary Care Unavailable SEMPLE, TORIBIO Referring Unavailable PAVLOCK, [facility] Primary Care Unavailable PLASENCIA, SHEA Attending Unavailable PLASENCIA, SHEA Referring Unavailable PAVLOCK, [facility] Primary Care Unavailable GORDONKELLE HAN Attending Unavailable PAVLOCK, [facility] Primary Care Unavailable PLASENCIA, SHEA Attending Unavailable PAVLOCK, [facility] Primary Care Unavailable KARI, FUAD Attending Unavailable PLASENCIA, SHEA Referring Unavailable PAVLOCK, [facility] Primary Care Unavailable PAVLOCK, [facility] Primary Care Unavailable PLASENCIA, SHEA Attending Unavailable PAVLOCK, [facility] Primary Care Unavailable PLASENCIA, SHEA Referring Unavailable PAVLOCK, [facility] Primary Care Unavailable KARI, FUAD Referring Unavailable POOJA CORDON Attending Unavailable PAVLOCK, [facility] Primary Care Unavailable PAVLOCK, [facility] Primary Care Unavailable PLASENCIA, SHEA Referring Unavailable KELLE GORDON Attending Unavailable PAVLOCK, [facility] Primary Care Unavailable PLASENCIA, SHEA Attending Unavailable DESTINEY GARCIA Attending Unavailable PLASENCIA, SHEA Referring Unavailable PAVLOCK, [facility] Primary Care Unavailable VIVIANA MACEDO Attending Unavailable PAVLOCK, [facility] Primary Care Unavailable PLASENCIA, SHEA Referring Unavailable SEMPLE, TORIBIO Attending Unavailable PAVLOCK, [facility] Primary Care Unavailable ANA, DAMARIS Referring Unavailable JURGEN BRAMBILA Attending Unavailable ANA, DAMARIS Referring Unavailable NAA, DAMARIS Attending Unavailable Generic Provider MD, No Assigned Pcp Primary Car e Provider Unavailable Generic Provider MD, No Assigned Pcp Primary Car e Provider Unavailable Hayde Antonio MD Unavailable Jamey Lucero MD Primary Care Provider LEONCIO ROSENBERG Attending Unavailable DURAN SY Referring Unavailable JR. GREGORIO GEORGE C Attending Unavaila ble STEPJR. DENA, JELENA Stallings Referring Unavaila ble STEPJR. DENA, JELENA Stallings Attending Unavaila ble Generic Provider MD, No Assigned Pcp Primary [...] SOSA Attending Unavailable NAKUL SOSA Referring Unavailable HAYDE ANTONIO Primary Care Physician Taz CANAS Attending Unavailable HAYDE ANTONIO Referring Unavailable Jomar Fall Attending Unavailab Jomar Steinberg Admitting Unavailab carlo NO FAMILY, PHYSICIAN Primary Care Unavailable Allergies Allergy Classification Reported Allergen(s) Allergy Type Date of Onset Reaction(s) Facility (20 sources) Ketorolac; Translations: [KETOROLAC] Drug Allergy 09-22-19 Other: See Comments, Anxiety, Other, Unknown, Swelling, Panic attack (finding) [facility] (20 sources) Penicillins; Translations: [Penicillins] Allergy to Substance 05-07-20 Swelling, Hives [facility] (20 sources) traMADol; Translations: [tramadol] Drug Allergy 09-22-19 15 Mental Status Change, Hives, Hallucinations , Other, Seizure, Seizure (finding) [facility] (18 sources) Ketorolac; Translations: [Toradol] Drug Allergy 09-22-19 anxiety [facility] Repository (20 sources) penicillAMINE; Translations: [PENICILLAMINE] Drug Allergy 06-04-20 swelling [employer] Other (1 source) ALLERGIES NOT ON FILE; Translations: [ALLERGIES NOT ON FILE] Propensity to adverse reactions (disorder) [facility] Repository (2 sources) Penicillin; Translations: [penicillin] Drug Allergy Edema (finding) [facility] [place] (1 source) penicillAMINE Drug Allergy 06-04-20 [facility] Repository Medications Current Medications Medication Drug Class(es) [...] TAB PO Q6H 28 June 05, 2022 amphetamine aspartate 1.25 mg / amphetamine sulfate 1.25 mg / dextroamphetamine saccharate 1.25 mg / dextroamphetamine sulfate 1.25 mg oral tablet (7 sources) Central Nervous System Stimulant Start: 02-07-2025 take 1 tablet by mouth once daily in the morning Adderall 5 mg oral tablet 5 mg, 1 tab(s), Oral, qAM, Refill(s) 0 Start Date: 02/07/25 Status: Ordered Repeat number: 1 Start: 01-01-2025 take 1 capsule by mo uth once daily in the morning amphetamine-dextroamphetamine XR (Addera ll XR) 10 mg 24 hr capsule Take [...] Start: 12-10-2022 take 1 capsule by mo uth once daily atomoxetine (STRATTERA) 60 mg capsule [...] 60 mg by mouth Daily 01/04/2024 Active duloxetine 60 mg Cap-DR (1 source) Start: 5 take 1 capsule by mouth once daily duloxetine 60 mg Cap-DR = 1 cap(s), Oral, Daily, Refills(s) 0 Start Date: 02/07/25 Status: Ordered Repeat number: 1 FLUoxetine 40 mg oral capsule (20 sources) [...] three times da sang as needed. lamoTRIgine 100 mg oral tablet (20 sources) Mood Stabilizer, Anti-epileptic Agent Start: 02-07-2025 take 1 tablet by mouth three times daily Lamictal 100 mg Tab 100 mg = 1 tab(s), Oral, TID, Refills(s) 0 Start Date: 02/07/25 Status: Ordered Repeat number: 1 Start: 12-24-2024 take 2 tablets by mo uth once daily at bedtime lamoTRIgine (LaMICtal) 25 [...] 2019 7:02am take 1 tablet by netta th once daily lamoTRIgine (LaMICtal) 200 mg tablet Take 1 tablet (200 mg) by mouth once daily. Active take 1 tablet by netta th three times daily LaMICtal 100 MG tablet 1 tablet Orally three times daily Active take 1 tablet by netta th every twenty-four hours LaMICtal 100 MG 1 tablet Orally Once a day Active take 2 tablets by mo uth every twelve hours Comment on above: 100 mg twice daily. LORazepam 1 mg oral tablet (20 sources) Benzodiazepine Start: 02-21-2025 take 1 tablet by mouth four times daily as needed for anxiety LORazepam 1 mg Tab 1 mg = 1 tab(s), Oral, QID, PRN as needed for anxiety, Refills(s) 0 Start Date: 02/21/25 Status: Ordered Repeat number: 1 Start: 01-08-2025 take 1 tablet by netta th every six hours as needed LORazepam (Ativan) [...] th four times a day as needed. nabumetone 500 mg oral tablet (6 sources) Nonsteroidal Anti-inflammatory Drug Start: 04-28-20 End: 04-28-20 take 1 tablet by mouth [...] on above: Take 1 capsule by mo [facility] once daily. omeprazole 40 mg delayed release oral capsule (20 sources) Proton Pump Inhibitor Start: 02-08-20 take 1 capsule by mouth once daily omeprazole 40 mg Cap-DR 40 mg = 1 cap(s), Oral, Daily, Refills(s) 0 Start Date: 02/07/25 Status: Ordered Repeat number: 1 Start: 01-22-2025 take 1 capsule by mo [facility] once daily before mealtime omeprazole (PriLOSEC) [address] capsule Take 1 capsule (40 mg) by mouth once daily in the morning. Take before meals. 01/22/2025 Active Start: 03-04-2022 take 40 mg by mouth once daily Omeprazole Active 40 MG PO Daily March 04, 2022 12:00am QUEtiapine 400 mg oral tablet (20 sources) Atypical Antipsychotic Start: 02-07-2025 take 2 tablets by mouth once daily Seroquel 400 mg oral tablet 800 mg = 2 tab(s), Oral, Daily, Refills(s) 0 Start Date: 02/07/25 Status: Ordered Repeat number: 1 Start: 10-22-2020 take 800 mg by mouth [...] 800 mg by mouth daily at bedtime. SUMAtriptan 100 mg oral tablet (13 sources) Serotonin-1b and Serotonin-1d Receptor Agonist Start: 02-07-2025 take 1 tablet by mouth once Imitrex 100 mg Tab 100 mg = 1 tab(s), Oral, Once, Refills(s) 0 Start Date: 02/07/25 Status: Ordered Repeat number: 1 Start: 06-16-2019 End: 02-23-2020 take 25 mg by mouth once daily Sumatriptan Succinate Discontinued 25 MG PO Daily June 16, 2019 12:00am February 23, 2020 4:16pm Start: 03-10-2019 End: 06-13-2019 take 50 mg by mouth every eight hours Sumatriptan Succinate Discontinued 50 MG PO Q8H 14 March 10, 2019 12:00am June 13, 2019 10:28am TENS Unit (1 source) Start: 06-04-2023 TENS Unit Use as directed. May, Active traZODone hydrochloride 100 mg oral tablet (20 sources) Serotonin Reuptake Inhibitor Start: 02-07-2025 take 1 tablet by mouth once daily at bedtime traZODONE 100 mg Tab 100 mg = 1 tab(s), Oral, Once a day (at bedtime), Refills(s) 0 Start Date: 02/07/25 Status: Ordered Repeat number: 1 Start: 06-25-2021 traZODone (LAURA YREL) 50 mg tablet 100 mg daily at [...] above: 100 mg daily at bedt marilee. Completed/Discontinued Medications Medication Drug Class(es) Dates Sig [...] every four to six hours Hydrocodone-Acetam inophen ([place]) 5-325 mg tablet Discontinued 1 TAB PO [...] Start: 01-25-2023 take 1 tablet by netta every twelve hours Diclofenac Sodium 75 MG [...] D2) (Vitamin D2) 50,000 unit capsule Discontinued 57281 UNIT PO every week August 17, 2019 [...] Comment on above: Take 1 capsule by [facility] three times daily for 90 days. ibuprofen [...] sources) Antiarrhythmic, Amide Local Anesthetic Start: 01-24-20 End: 01-24-20 lidocaine (Xylocaine) 10 mg/mL (1 [...] take 300 mg by mouth once daily [place] Carbonate Disc ontinued 300 MG PO Daily March 04, 2022 12:00am May 19, 2022 3:32pm Start: 08-14-2019 End: 02-23-2020 take 300 mg by mouth once daily [place] Carbonate Disc ontinued 300 MG PO Daily August 14, 2019 1:00am February 23, 2020 4:13pm Start: 08-14-2019 End: 02-23-2020 take 600 mg by mouth at bedtime [place] Carbonate Disc ontinued 600 MG PO Bedtime August 14, 2019 1:00am February 23, 2020 4:14pm Start: 03-07-2019 End: 06-13-2019 take 600 mg by mouth twice daily [place] Carbonate Discontinued 600 MG PO Twice daily [...] 5 MG PO EVERY 4-6 HOURS 70 14 October 11, 2020 October 22, 2020 5:35pm [...] mg by mouth d aily at bedtime. SZSTANDARD1-Topical Cream Baclofen 2%, Cyclobenzaprine HCL 2%, Diclofenac Na 3%, Gabapentin 6%, Lidocaine HCL 2% Cream (5 sources) Start: 12-10-2022 SZSTANDARD1-Topical Cream Baclofen 2%, Cyclobenzaprine HCL 2%, [...] 6-8 HOURS for 30 days Nov, Active Triamcinolone (20 sources) Corticosteroid Start: 03-25-2020 Kenalog [...] Classification Problem Date Documented Da te Episodic/Chronic Abdominal pain (2 sources) Abdominal pain; Translations: [Unspecified abdominal pain] Onset: 5 Episodic Anxiety disorders (6 sources) Generalized anxiety disorder; Translations: [Generalized anxiety disorder] Onset: 3 08-09-2023 Chronic Attention-deficit, conduct, and disruptive behavior disorders (3 sources) Attention deficit hyperactivity disorder, predominantly inattentive type; Translations: [Attention-deficit hyperactivity disorder, predominantly inattentive type] 10-30-2024 Chronic Attention-deficit, conduct, and disruptive behavior disorders (1 source) Attention deficit hyperactivity disorder 02-07-2025 Chronic Biliary tract disease (16 sources) Choledochal [...] of digestive system] 10-10-2020 Episodic Epilepsy; convulsions (5 sources) Seizure; Translations: [Unspecified convulsions] 06-13-2019 Episodic Esophageal disorders (1 source) Gastroesophageal reflux disease 02-07-2025 Chronic Fluid and electrolyte disorders (4 sources) Hypokalemia; Translations: [Hypokalemia] 06-13-2019 Episodic Gastrointestinal hemorrhage (2 sources) Hemorrhage of rectum and anus; Translations: [Hemorrhage of anus and rectum] Onset: Episodic Headache; including migraine (6 sources) Migraine; [...] factors] Onset: 3 08-09-2023 Chronic Mood disorders (8 sources) Bipolar I disorder; Translations: [Bipolar disorder, unspecified] Onset: 8 06-28-2023 Chronic Osteoarthritis (5 sources) Osteoarthritis of [...] 10-09-2020 Episodic Other aftercare (6 sources) Other care home (current) drug therapy; Translations: [OTH PENITENTIARY CURRENT DRUG THERAPY] Onset: 2 Episodic Other aftercare (1 source) Prescribed medication regimen behavior finding; Translations: [Other care home (current) drug therapy] 08-09-2023 Episodic Other circulatory [...] to total left knee replacement, initial encounter ([facility])] Onset: 3 Chronic Other connective tissue [...] Diarrhea; Translations: [Diarrhea, unspecified] 06-13-2019 Episodic Other gastrointestinal disorders (2 sources) Altered bowel function; Translations: [Change in bowel habit] Onset: 5 Episodic Other nervous system disorders (16 sources) [...] cysts] 10-30-2024 Chronic Other nervous system disorders (1 source) Neuropathy 02-07-2025 Chronic Other nervous system disorders (4 sources) [...] Chronic Other nutritional; endocrine; and metabolic disorders (2 sources) Body mass index 30+ - obesity; Translations: [Body mass index (BMI) 30.0-30.9, adult] 03-22-2023 Chronic Other nutritional; endocrine; and metabolic disorders (1 source) Obesity caused by energy imbalance 02-07-2025 Chronic Residual codes; unclassified (4 sources) Obstructive sleep apnea syndrome; Translations: [Obstructive [...] sources) Amnesia; Translations: [Other amnesia] 10-30-2024 Episodic Residual codes; unclassified (1 source) Family history of malignant neoplasm of digestive organ; Translations: [Family history of malignant neoplasm of digestive organs] Onset: 5 Episodic Residual codes; unclassified (1 source) Tobacco user; Translations: [Tobacco use] Onset: 5 Episodic Residual codes; unclassified (1 source) Chronic pain 02-07-2025 Episodic Residual codes; unclassified (1 source) Family history of cancer of colon 02-21-2025 Episodic Residual codes; unclassified (1 source) Nicotine-filled electronic cigarette user 02-21-2025 Episodic Schizophrenia and other psychotic disorders (6 [...] (4 sources) Right knee pain, unspecified chronicity 01-23-2025 Past or Other Problems Problem Classification Problem [...] nervous system; Translations: [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] Onset: 03-04-2022 Episodic Other nervous system disorders [...] Translations: [Radiculopathy, lumbar region] Onset: 02-16-2022 Resolved: 02-07-2025 Episodic Suicide and intentional self-inflicted injury (9 sources) Suicidal thoughts; Translations: [Suicidal ideations] Onset: 04-28-2023 03-07-2019 Episodic Results Test Name Value Interpretation Reference Range Facility Ambulatory Visit Summaryon 0 02-21-2025 Ambulatory Visit Summary Ambulatory Visit Summary PORTER MARAVILLA :1985 Visit Date:02/21/2025 Ambulatory Visit Instructions Your Diagnosis Rectal bleeding Family history of colon cancer Vapes nicotine containing substance Your Care Team Attending Physician - Taz CANAS MD Primary Care Physician - HAYDE ANTONIO CNP Referring Physician - HAYDE ANTONIO CNP This Is Your Medications List Contact prescribing physician if questions or concerns amphetamine-dextroa mphetamine (Adderall 5 mg oral tablet) duloxetine (duloxetine 60 mg Cap-DR) lamotrigine (Lamictal 100 mg Tab) lorazepam (LORazepam 1 mg Tab) omeprazole (omeprazole 40 mg Cap-DR) quetiapine (Seroquel 400 mg oral tablet) sumatriptan (Imitrex 100 mg Tab) trazodone (traZODONE 100 mg Tab) Procedures Performed Arthroplasty of left knee, Cholecystectomy, Fusion of lumbar spine, Meniscal repair. Discharge Vitals Heart Rate (Peripheral) 76 Respiratory Rate 16 Blood Pressure 122/84 Height 190.5 cm Height 75 in Weight 110 kg Weight 242.508 lb BMI 30.31 Medications What How Much When Instructions Unchanged amphetamine-dextroa mphetamine (Adderall 5 mg oral tablet) 1 Tablets By Mouth Once a day (in the morning) Contact prescribing physician if questions or concerns Unchanged duloxetine (duloxetine 60 mg Cap-DR) 1 Capsules By Mouth Every day Contact prescribing physician if questions or concerns Unchanged lamotrigine (Lamictal 100 mg Tab) 1 Tablets By Mouth 3 times a day Contact prescribing physician if questions or concerns Unchanged lorazepam (LORazepam 1 mg Tab) 1 Tablets By Mouth 4 times a day as needed for as needed for anxiety Contact prescribing physician if questions or concerns Unchanged omeprazole (omeprazole 40 mg Cap-DR) 1 Capsules By Mouth Every day Contact prescribing physician if questions or concerns Unchanged quetiapine (Seroquel 400 mg oral tablet) 2 Tablets By Mouth Every day Contact prescribing physician if questions or concerns Unchanged sumatriptan (Imitrex 100 mg Tab) 1 Tablets By Mouth Once Contact prescribing physician if questions or concerns Unchanged trazodone (traZODONE 100 mg Tab) 1 Tablets By Mouth Once a day (at bedtime) Contact prescribing physician if questions or concerns Allergies Toradol (Panic attack) penicillin (Edema) traMADol (Seizure) Problems Ongoing - Any problem that you are currently receiving treatment for. Anxiety Attention deficit hyperactivity disorder Bipolar disorder BMI 30.0-30.9,adult Chronic pain Depressive disorder Family history of colon cancer Gastroesophageal reflux disease Neuropathy Obesity due to excess calories Obstructive sleep apnea syndrome Rectal bleeding Seizure disorder Vapes nicotine containing substance Historical - Any problem that you are no longer receiving treatment for. Lumbar radiculopathy Patient Survey You may receive a survey via text or e-mail asking about your office visit. Please share your experience with us by completing your survey. We appreciate your feedback and thank you for choosing us for your care. Normal [facility] Provider Letteron 01-25-2025 Provider Letter Provider Letter January 25, 2025 PORTER MARAVILLA [address] [place] [address] : 1985 Dear Mr. Maravilla, We have been trying to reach you with no success regarding a referral from Betsy Antonio. It is important that you return our call upon receiving this letter. Also, at the time of your call, please provide us with your current information. Thank you for your prompt attention to this matter. Sincerely, [facility] [phone] Normal [facility] Inj/Asp: Right kneeon 2024 Nakul Sosa MD [...] to verify the correct patient, procedure, equipment, computer network support specialist and site/side marked as required. Patient was prepped and draped in the usual sterile fashion. [facility] Work Phone: [facility] Work Phone: XR KNEE LEFT 3 VIEWSon 01-23 XR KNEE LEFT 3 VIEWS Interpreted By: Nakul Sosa, STUDY: XR KNEE LEFT 3 VIEWS; 01/23/2025 1:22 pm INDICATION: Signs/Symptoms:pain . ACCESSION NUMBER(S): [id number] ORDERING CLINICIAN: NAKUL SOSA FINDINGS: Three views left knee. Status post cemented total knee replacement subtle lucency along the tibial component unchanged from previous x-ray no evidence of fracture dislocation or other bony abnormality Signed by: Nakul Sosa 01/23/2025 1:45 PM Dictation workstation: [id number] [facility] XR KNEE RIGHT 4+ VIEWSon XR KNEE RIGHT 4+ VIEWS Interpreted By: Nakul Sosa, STUDY: XR KNEE RIGHT 4+ VIEWS; 01/23/2025 1:22 pm INDICATION: Signs/Symptoms:pain . ACCESSION NUMBER(S): [id number] ORDERING CLINICIAN: NAKUL SOSA FINDINGS: Right knee weightbearing four views. Mild medial joint space narrowing mild knee effusion no signs of fracture dislocation or other bony abnormality Signed by: Nakul Sosa 01/23/2025 1:45 PM Dictation workstation: [id number] [facility] XR Knee - left 3 Viewson Interpreted By: Nakul Sosa, STUDY: XR KNEE LEFT 3 VIEWS; 01/23/2025 1:22 pm INDICATION: Signs/Symptoms:pain . ACCESSION NUMBER(S): [id number] ORDERING CLINICIAN: NAKUL SOSA FINDINGS: Three views left knee. Status post cemented total knee replacement subtle lucency along the tibial component unchanged from previous x-ray no evidence of fracture dislocation or other bony abnormality Signed by: Nakul Sosa 01/23/2025 1:45 PM Dictation workstation: [id number] [facility] Nakul Sosa MD - 01/23/2025 Interpreted By: Nakul Sosa, STUDY: XR KNEE LEFT 3 VIEWS; 01/23/2025 1:22 pm INDICATION: Signs/Symptoms:pain . ACCESSION NUMBER(S): [id number] ORDERING CLINICIAN: NAKUL SOSA FINDINGS: Three views left knee. Status post cemented total knee replacement subtle lucency along the tibial component unchanged from previous x-ray no evidence of fracture dislocation or other bony abnormality Signed by: Nakul Sosa 01/23/2025 1:45 PM Dictation workstation: [id number] [facility] Work Phone: [facility] Work Phone: Radiology Study observation (narrative) [facility] Work Phone: XR Knee - right 4 Viewson Interpreted By: Nakul Sosa, STUDY: XR KNEE RIGHT 4+ VIEWS; 01/23/2025 1:22 pm INDICATION: Signs/Symptoms:pain . ACCESSION NUMBER(S): [id number] ORDERING CLINICIAN: NAKUL SOSA FINDINGS: Right knee weightbearing four views. Mild medial joint space narrowing mild knee effusion no signs of fracture dislocation or other bony abnormality Signed by: Nakul Sosa 01/23/2025 1:45 PM Dictation workstation: [id number] [facility] Nakul Sosa MD - 01/23/2025 Interpreted By: Nakul Sosa, STUDY: XR KNEE RIGHT 4+ VIEWS; 01/23/2025 1:22 pm INDICATION: Signs/Symptoms:pain . ACCESSION NUMBER(S): [id number] ORDERING CLINICIAN: NAKUL SOSA FINDINGS: Right knee weightbearing four views. Mild medial joint space narrowing mild knee effusion no signs of fracture dislocation or other bony abnormality Signed by: Nakul Sosa 01/23/2025 1:45 PM Dictation workstation: [id number] [facility] Work Phone: [facility] Work Phone: Radiology Study observation (narrative) [facility] Work Phone: No Panel Informationon 05-23 Radiology Study observation (narrative) [facility] Work Phone: XR KNEE LEFT 3 VIEWSon 05-23 XR KNEE LEFT 3 VIEWS Interpreted By: Nakul Sosa, STUDY: XR KNEE LEFT 3 VIEWS; 05/23/2024 2:30 pm INDICATION: Signs/Symptoms:PAIN . ACCESSION NUMBER(S): [id number] ORDERING CLINICIAN: NAKUL SOSA FINDINGS: Left knee weightbearing four views. Status post cemented total knee replacement there is shadowing along the tibial component with slight subsidence along the medial aspect. No gross malalignment no signs of fracture dislocation or other bony abnormality Signed by: Nakul Sosa 05/23/2024 4:42 PM Dictation workstation: [id number] [facility] Comment on above: Order Comment: XR kn ee left 3 views weightbearing XR KNEE RIGHT 4+ VIEWSon XR KNEE RIGHT 4+ VIEWS Interpreted By: Nakul Sosa, STUDY: XR KNEE RIGHT 4+ VIEWS; 05/23/2024 2:30 pm INDICATION: Signs/Symptoms:pain . ACCESSION NUMBER(S): [id number] ORDERING CLINICIAN: NAKUL SOSA FINDINGS: Right knee weightbearing four views. Mild medial joint space narrowing moderate knee effusion no signs of fracture dislocation or other bony abnormality Signed by: Nakul Sosa 05/23/2024 4:41 PM Dictation workstation: [id number] XR Knee - left 3 Viewson Interpreted By: Nakul Sosa, STUDY: XR KNEE LEFT 3 VIEWS; 05/23/2024 2:30 pm INDICATION: Signs/Symptoms:PAIN . ACCESSION NUMBER(S): [id number] ORDERING CLINICIAN: NAKUL SOSA FINDINGS: Left knee weightbearing four views. Status post cemented total knee replacement there is shadowing along the tibial component with slight subsidence along the medial aspect. No gross malalignment no signs of fracture dislocation or other bony abnormality Signed by: Nakul Sosa 05/23/2024 4:42 PM Dictation workstation: [id number] [facility] Nakul Sosa MD - 05/23/2024 Interpreted By: Nakul Sosa, STUDY: XR KNEE LEFT 3 VIEWS; 05/23/2024 2:30 pm INDICATION: Signs/Symptoms:PAIN . ACCESSION NUMBER(S): [id number] ORDERING CLINICIAN: NAKUL SOSA FINDINGS: Left knee weightbearing four views. Status post cemented total knee replacement there is shadowing along the tibial component with slight subsidence along the medial aspect. No gross malalignment no signs of fracture dislocation or other bony abnormality Signed by: Nakul Sosa 05/23/2024 4:42 PM Dictation workstation: [id number] [facility] Work Phone: XR Knee - left 3 ViewsOrdere d By: Nkaul Sosa on 05-23-2024 [facility] Work Phone: XR Knee - right 4 Viewson Interpreted By: Nakul Sosa, STUDY: XR KNEE RIGHT 4+ VIEWS; 05/23/2024 2:30 pm INDICATION: Signs/Symptoms:pain . ACCESSION NUMBER(S): [id number] ORDERING CLINICIAN: NAKUL SOSA FINDINGS: Right knee weightbearing four views. Mild medial joint space narrowing moderate knee effusion no signs of fracture dislocation or other bony abnormality Signed by: Nakul Sosa 05/23/2024 4:41 PM Dictation workstation: [id number] [facility] Nakul Sosa MD - 05/23/2024 Interpreted By: Nakul Sosa, STUDY: XR KNEE RIGHT 4+ VIEWS; 05/23/2024 2:30 pm INDICATION: Signs/Symptoms:pain . ACCESSION NUMBER(S): [id number] ORDERING CLINICIAN: NAKUL SOSA FINDINGS: Right knee weightbearing four views. Mild medial joint space narrowing moderate knee effusion no signs of fracture dislocation or other bony abnormality Signed by: Nakul Sosa 05/23/2024 4:41 PM Dictation workstation: [id number] [facility] Work Phone: [facility] Work Phone: Follow-Upon 08-19-2023 Follow-Up [id number] Porter Maravilla 1985 M Date Provider Department Center 08/19/2023 Belen-JURGEN BRAMBILA MP ORTHO MPORTHO Family History Family history unknown: Yes Level of Service:83991 NE OFFICE/OUTPATIENT ESTABLISHED LOW MDM 20 MIN Reason for Visit and Comments: Pain [136] - L TKA needs revision , L TKA done 1 year ago, c/o l knee ana m and gives out Normal [facility] Office Visiton 08-16-2023 Follow-up visit [id number] Porter Maravilla 1985 M Date Provider Department Center 08/16/2023 DAMARIS RITTER MP ORTHO MPORTHO Family History Family history unknown: Yes Level of Service:50630 NE OFFICE/OUTPATIENT ESTABLISHED MOD MDM 30-39 MIN () Reason for Visit and Comments: Pain [136] Normal [facility] CNOVon 06-28-2023 CNOV Office Visit (NPRC21) ---- PORTER MARAVILLA ([id number]) 1985 M Date Time Provider Department 06/28/23 3:30 PM FUAD PIRECE NPRC21 During your visit today, we recorded the following information about you: Pulse Blood pressure Weight Height 92/minute 126/86 111.1 kg 1.905 m Fuad Pierce PA-C 06/28/2023 10:11 PM Signed [facility] [place] June 28, 2023 Porter Maravilla is a 37 year old partnered male, not working, only volunteering, who lives with significant other and son (12 yoa) in [place], [place]. He was referred by Shea Plasencia [address] [place] [address]. Consultation requested by Luis Angel for an [...] Hx of left total knee replacement at [facility] by dr Smyth May 2022 - due [...] n/a CHF: denies Uncontrolled HTN: denies Recent MN: denies Arrythmias: denies Afib: denies Hyperthyroid: denies [...] Drug use: (more content not included)... Normal [facility] CNPNon 04-30-2023 CNPN Telephone (ORTHMN) ---- PORTER MARAVILLA ([id number]) 1985 M Date Time Provider Department 04/30/23 [...] Status Change Date Reviewed: 04/26/2023 Reviewed by: Bombeshko, Snezhana, Cast Tech - Fully Assessed Reason for Visit: Patient Question [0871] Cmt: Pain Prescriptions as of 05/03/2023 - [...] Encounter Status:Closed by TORIBIO HAMMOND on 05/03/23 [facility] Francine 04-29-2023 [facility] Telephone (SPNMMN) ---- PORTER MARAVILLA ([id number]) 1985 M Date Time Provider Department 04/29/23 KELLE GORDON SPNMMN During your visit today, we recorded the following information about you: Sarah Canela, DOMINIQUE 04/29/2023 11:55 AM Signed Received: Today Kelle Gordon, Shea Merino, SUSU.SHIPPING HAND; Sarah Canela, RN Thank you for sending. He did not check in for his visit today/no answer. Hope he is ok. Sarah, could you call and see if you can get in touch with him and see if he would like to reschedule his VV with me? Sarah Canela, DOMINIQUE 04/29/2023 11:55 AM Signed Spoke to patient [...] Maravilla Provider:Dr. Gordon Date: 05/31/2023 Time: [facility] schedule Visit Type: Virtual (visualized on [...] Status:Closed by SARAH CANELA on 04/30/23 Normal [facility] Progress Noteson 04-28-2023 [employer] Authentication Interface Message Text EMERGENCY TRIAGE, TREAT AND TRANSPORT (ET3) DOCUMENTATION OF TELEHEALTH VISIT Date / Time: 04/28/2023 / Name: Porter Maravilla : 1985 SSN: (Not on file) EMS Agency: [facility] [] Verbal consent obtained [x] Implied consent - patient with potential emergency medical condition requiring assessment of capacity to refuse treatment and/or transport VITAL SIGNS: see flowsheet documentation Reason for Telehealth Visit: No chief complaint on file. suicidal thoughts History of Present Illness: He was speaking with his psych counselor at [facility] and said he wants to Additional pertinent [...] Completed by: Salvador Harris MD Normal [facility] 04-26-2023 CNOV Office Visit (ORTHMN) ---- PORTER MARAVILLA ([id number]) 1985 M Date Time Provider Department 04/26/23 12:15 PM VIVIANA MCAEDO ORTHMN During your visit today, we recorded the following information about you: Weight Height 109 kg 1.905 m Viviana Macedo MD 04/26/2023 3:15 PM Signed Chief Complaint: No chief complaint on file. HPI: Patient is 37 year old male here for second opinion on left knee 37-year-old male presents for evaluation of left lower extremity pain status post left total knee replacement on [facility] by Dr. Jelena Smyth May 2022. Patient claims since the surgery the knee has been very painful ambulates with a valgus thrust and with every step it is painful. He is also status post back fusion done in 2020. He has been evaluated by pain management. He was worked up extensively in the [place] area had labs done back x-rays CT [...] personally reviewed (more content not included)... Normal [facility] Francine 03-22-2023 YVONN Telephone (PAINMN) ---- PORTER MARAVILLA ([id number]) 1985 M Date Time Provider Department 03/22/23 [...] Status:Closed by CECILY RIVERA on 03/22/23 Normal [facility] CNOVon 03-18-2023 CNOV Office Visit (PAINMN) ---- PORTER MARAVILLA ([id number]) 1985 M Date Time Provider Department 03/18/23 [...] Destiney Garcia MD 03/22/2023 10:58 AM Signed [facility] Pain Management Department Office Visit Porter Maravilla is referred by NATALIIA Ward (spine). Unaccompanied Room: 20 Chief Complaint: both knees L>>R HISTORY OF PRESENT ILLNESS Mr. Porter Maravilla presents to [facility] for the evaluation [...] told to get all his records from [facility] CT scan on a disc along with [...] Date A (more content not included)... [facility] Telephone (ORTHMN) ---- PORTER MARAVILLA ([id number]) 1985 M Date Time Provider Department 03/15/23 [...] Status:Closed by TORIBIO HAMMOND on 03/15/23 Normal [facility] C-REACTIVE PROTEIN (CRP)on 0 03-05-2023 CRP [Mass/Vol] <0.9 mg/dL [facility] CBC W Auto Differential pane l (Bld)on 03-05-2023 Basophils (Bld) [#/Vol] 0.05 10*3/uL Normal <0.11 [facility] Comment on above: Order Comment: Speci men Type: BLOOD SPECIMEN Ordering Facility: [facility] Address: [address] Performed By: #### 5 7021-8, 4536-7 #### [facility] CLIA [id number] [address] [place] [address] [place] Basophils/100 WBC (Bld) 0.8 % Normal [facility] Comment on above: Order Comment: Speci men Type: BLOOD SPECIMEN Ordering Facility: [facility] Address: [address] Performed By: #### 5 7021-8, 7 #### [facility] CLIA [id number] [address] [place] [address] [place] Differential cell count method Nom (Bld) Auto Normal [facility] Comment on above: Order Comment: Speci men Type: BLOOD SPECIMEN Ordering Facility: [facility] Address: [address] Performed By: #### 5 7021-8, 7 #### [facility] CLIA [id number] [address] [place] [address] [place] Eosinophils (Bld) [#/Vol] 0.23 10*3/uL Normal <0.46 [facility] Comment on above: Order Comment: Speci men Type: BLOOD SPECIMEN Ordering Facility: [facility] Address: [address] Performed By: #### 5 7021-8, 7 #### [facility] CLIA [id number] [address] [place] [address] [place] Eosinophils/100 WBC (Bld) 3.8 % Normal [facility] Comment on above: Order Comment: Speci men Type: BLOOD SPECIMEN Ordering Facility: [facility] Address: [address] [place], [place] [address] Performed By: #### 5 7021-8, 4536-7 #### [facility] CLIA [id number] [address] [place] [address] [place] Erythrocyte distribution width (RBC) [Ratio] 13.6 % Normal 11.5-15.0 [facility] Comment on above: Order Comment: Speci men Type: BLOOD SPECIMEN Ordering Facility: [facility] Address: [address] [place] [address] Performed By: #### 5 7021-8, 4537-7 #### [facility] [place] [id number] [address] [place] [address] [place] Hematocrit (Bld) [Volume fraction] 41.1 % Normal 39.0-51.0 [facility] Comment on above: Order Comment: Speci men Type: BLOOD SPECIMEN Ordering Facility: [facility] Address: [address] [place] [address] Performed By: #### 5 7021-8, 4537-7 #### [facility] [place] [id number] [address] [place] [address] [place] Hemoglobin (Bld) [Mass/Vol] 13.6 g/dL Normal 13.0-17.0 [facility] Comment on above: Order Comment: Speci men Type: BLOOD SPECIMEN Ordering Facility: [facility] Address: [address] [place], [place] [address] Performed By: #### 5 7021-8, 4537-7 #### [facility] [place] [id number] [address] [place] [address] [place] Immature granulocytes (Bld) [#/Vol] 10*3/uL Normal <0.10 [facility] Comment on above: Order Comment: Speci men Type: BLOOD SPECIMEN Ordering Facility: [facility] Address: [address] [place], [place] [address] Performed By: #### 5 7021-8, 4537-7 #### [facility] IA [id number] [address] [place] [address] [place] Immature granulocytes/100 WBC (Bld) 0.2 % Normal [facility] Comment on above: Order Comment: Speci men Type: BLOOD SPECIMEN Ordering Facility: [facility] Address: [address] [place] [address] Performed By: #### 5 7021-8, 4537-7 #### [facility] CLIA [id number] [address] [place] [address] [place] Lymphocytes (Bld) [#/Vol] 3.05 10*3/uL Normal 1.00-4.00 [facility] Comment on above: Order Comment: Speci men Type: BLOOD SPECIMEN Ordering Facility: [facility] Address: [address] [place] [address] Performed By: #### 5 7021-8, 4537-7 #### [facility] CLIA [id number] [address] [place] [address] [place] Lymphocytes/100 WBC (Bld) 50.4 % Normal [facility] Comment on above: Order Comment: Speci men Type: BLOOD SPECIMEN Ordering Facility: [facility] Address: [address] [place], [place] [address] Performed By: #### 5 7021-8, 7-7 #### [facility] CLIA [id number] [address] [place] [address] [place] MCH (RBC) [Entitic mass] 28.2 pg Normal 26.0-34.0 [facility] Comment on above: Order Comment: Speci men Type: BLOOD SPECIMEN Ordering Facility: [facility] Address: [address] [place], [place] [address] Performed By: #### 5 7021-8, 7-7 #### [facility] CLIA [id number] [facility] [place] [address] [place] MCHC (RBC) [Mass/Vol] 33.1 g/dL Normal 30.5-36.0 [facility] Comment on above: Order Comment: Speci men Type: BLOOD SPECIMEN Ordering Facility: [facility] Address: [address] Performed By: #### 5 7021-8, 4537-03 #### [facility] CLIA [id number] [address] [place] [address] [place] MCV (RBC) [Entitic vol] 85.1 fL Normal 80.0-100.0 [facility] Comment on above: Order Comment: Speci men Type: BLOOD SPECIMEN Ordering Facility: [facility] Address: [address] [place], [place] [address] Performed By: #### 5 7021-8, 4537-03 #### [facility] CLIA [id number] [address] [place] [address] [place] Monocytes (Bld) [#/Vol] 0.54 10*3/uL Normal <0.87 [facility] Comment on above: Order Comment: Speci men Type: BLOOD SPECIMEN Ordering Facility: [facility] Address: [address] [place], [place] [address] Performed By: #### 5 7021-8, 4537-03 #### [facility] CLIA [id number] [address] [place] [address] [place] Monocytes/100 WBC (Bld) 8.9 % Normal [facility] Comment on above: Order Comment: Speci men Type: BLOOD SPECIMEN Ordering Facility: [facility] Address: [address] [place] [address] Performed By: #### 5 7021-8, 4537-03 #### [facility] CLIA [id number] [address] [place] [address] [place] Neutrophils (Bld) [#/Vol] 2.17 10*3/uL Normal 1.45-7.50 [facility] Comment on above: Order Comment: Speci men Type: BLOOD SPECIMEN Ordering Facility: [facility] Address: [address] Performed By: #### 5 7021-8, 4537-7 #### [facility] CLIA [id number] [address] [place] [address] [place] Neutrophils/100 WBC (Bld) 35.9 % Normal [facility] Comment on above: Order Comment: Speci men Type: BLOOD SPECIMEN Ordering Facility: [facility] Address: [address] [place], [place] [address] Performed By: #### 5 7021-8, 4536-7 #### [facility] CLIA [id number] [address] [place] [address] [place] Nucleated RBC (Bld) [#/Vol] 10*3/uL Normal <0.01 [facility] Comment on above: Order Comment: Speci men Type: BLOOD SPECIMEN Ordering Facility: [facility] Address: [address] [place], [place] [address] Performed By: #### 5 7021-8, 4536-7 #### [facility] CLIA [id number] [address] [place] [address] [place] Nucleated RBC/100 WBC (Bld) [Ratio] 0.0 /100 WBC Normal [facility] Comment on above: Order Comment: Speci men Type: BLOOD SPECIMEN Ordering Facility: [facility] Address: [address] [place] [address] Performed By: #### 5 7021-8, 4537-7 #### [facility] CLIA [id number] [address] [place] [address] [place] Platelet mean volume (Bld) [Entitic vol] 9.7 fL Normal 9.0-12.7 [facility] Comment on above: Order Comment: Speci men Type: BLOOD SPECIMEN Ordering Facility: [facility] Address: [address] [place], [place] [address] Performed By: #### 5 7021-8, 4537-7 #### [facility] CLIA [id number] [address] [place] [address] [place] Platelets (Bld) [#/Vol] 205 10*3/uL Normal 150-400 [facility] Comment on above: Order Comment: Speci men Type: BLOOD SPECIMEN Ordering Facility: [facility] Address: [address] [place], [place] [address] Performed By: #### 5 7021-8, 453-7 #### [facility] CLIA [id number] [address] [place] [address] [place] RBC (Bld) [#/Vol] 4.83 10*6/uL Normal 4.20-6.00 [facility] Comment on above: Order Comment: Speci men Type: BLOOD SPECIMEN Ordering Facility: [facility] Address: [address] [place], [place] [address] Performed By: #### 5 7021-8, 453-7 #### [facility] CLIA [id number] [address] [place] [address] [place] WBC (Bld) [#/Vol] 6.05 10*3/uL Normal 3.70-11.00 [facility] Comment on above: Order Comment: Speci men Type: BLOOD SPECIMEN Ordering Facility: [facility] Address: [address] [place], [place] [address] Performed By: #### 5 7021-8, 453-7 #### [facility] CLIA [id number] [address] [place] [address] [place] Basophils (Bld) [#/Vol] 0.05 10*3/uL <0.11 k/uL [facility] Basophils/100 WBC (Bld) 0.8 % [facility] Differential cell count method Nom (Bld) Auto [facility] Eosinophils (Bld) [#/Vol] 0.23 10*3/uL <0.46 k/uL [facility] Eosinophils/100 WBC (Bld) 3.8 % [facility] Erythrocyte distribution width (RBC) [Ratio] 13.6 % 11.5 - 15.0 % [facility] Hematocrit (Bld) [Volume fraction] 41.1 % 39.0 - 51.0 % [facility] Hemoglobin (Bld) [Mass/Vol] 13.6 g/dL 13.0 - 17.0 g/dL [facility] Immature granulocytes (Bld) [#/Vol] <0.10 k/uL [facility] Immature granulocytes/100 WBC (Bld) 0.2 % [facility] Lymphocytes (Bld) [#/Vol] 3.05 10*3/uL 1.00 - 4.00 k/uL [facility] Lymphocytes/100 WBC (Bld) 50.4 % [facility] MCH (RBC) [Entitic mass] 28.2 pg 26.0 - 34.0 pg [facility] MCHC (RBC) [Mass/Vol] 33.1 g/dL 30.5 - 36.0 g/dL [facility] MCV (RBC) [Entitic vol] 85.1 fL 80.0 - 100.0 fL [facility] Monocytes (Bld) [#/Vol] 0.54 10*3/uL <0.87 k/uL [facility] Monocytes/100 WBC (Bld) 8.9 % [facility] Neutrophils (Bld) [#/Vol] 2.17 10*3/uL 1.45 - 7.50 k/uL [facility] Neutrophils/100 WBC (Bld) 35.9 % [facility] Nucleated RBC (Bld) [#/Vol] <0.01 k/uL [facility] Nucleated RBC/100 WBC (Bld) [Ratio] 0.0 /100 WBC [facility] Platelet mean volume (Bld) [Entitic vol] 9.7 fL 9.0 - 12.7 fL [facility] Platelets (Bld) [#/Vol] 205 10*3/uL 150 - 400 k/uL [facility] RBC (Bld) [#/Vol] 4.83 10*6/uL 4.20 - 6.0 0 m/uL [facility] WBC (Bld) [#/Vol] 6.05 10*3/uL 3.70 - 11. 00 k/uL [facility] CNOVon 03-05-2023 CNOV Office Visit (ORTHMN) ---- PORTER MARAVILLA ([id number]) 1985 M Date Time Provider Department 03/05/23 [...] status post left total knee replacement on [facility] by Dr. Jelena Smyth May 2022. Patient claims since the surgery the knee has been very painful ambulates with a valgus thrust and with every step it is painful. He is also status post back fusion done in 2019 and has not followed with recovered from that also. He was worked up extensively in the [place] area had labs done back x-rays CT [...] total knee replacement surgery; Date: 2021 at [facility] [place]. Review of Systems Constitutional: Negative. HENT: Negative. [...] past me (more content not included)... Normal [facility] CRP SerPl-ncon 03-05-2023 CRP [Mass/Vol] mg/L Normal <0.9 [facility] Comment on above: Order Comment: Rocaeli marcus Type: BLOOD SPECIMEN Ordering Facility: [facility] Address: [address] [place] [address] Performed By: #### 5 7021-8, 4537-7 #### [facility] CLIA [id number] [address] [place] [address] [place] ESR Westergren method (Bld) [Velocity]on 03-05-2023 ESR (Bld) [Velocity] 2 mm/h 0 - 15 mm/hr [facility] ESR (Bld) [Velocity] 2 mm/h Normal 0-15 [facility] Comment on above: Order Comment: Shiloh velazquez Type: BLOOD SPECIMEN Ordering Facility: [facility] Address: [address] [place] [address] Performed By: #### 5 7021-8, 4537-7 #### [facility] CLIA [id number] [address] [place] [address] [place] CNOVon 02-05-2023 CNOV Office Visit (SPNMMN) ---- PORTER MARAVILLA ([id number]) 1985 M Date Time Provider Department 02/05/23 3:40 PM KELLE GORDON SPNMMN During your visit today, we recorded the [...] HPI/Conservative Treatment Section (NSAIDs, PT, HEP and/or Farm Supervisor within last 3-6 mo (more content not included)... Normal [facility] CNCOon 01-29-2023 CNCO Letter Text Normal [facility] CT LSPINE WO CONon CT LSPINE WO [...] by: DAMARIS BARRIGA Date: 2023-01-24 16:34 Normal [facility] CNOVon 01-13-2023 CNOV Office Visit (SPNSMN) ---- PORTER MARAVILLA ([id number]) 1985 M Date Time Provider Department 01/13/23 3:00 PM SHEA PLASENCIA SPNSMN During your visit today, we recorded the following information about you: Pulse Respiration Blood pressure Weight 84/minute 16/minute 125/84 112.1 kg Height 1.918 m Shea Plasencia APRN.SHIPPING HAND 01/14/2023 2:09 PM Signed SPINE SURGERY ESTABLISHED [...] medial men (more content not included)... Normal [facility] EMG(NEURO/NI)on 01-13-2023 [facility] XR KNEE 4V AP/PA/LAT/MERCH B ILon 01-13-2023 [...] SMALL PATELLAR OSTEOPHYTE OTHERWISE NORMAL RIGHT KNEE. Stock Dealer: PSCB Transcribe Date/Time: Jan 13 2023 4:47P Dictated by : MILLY GILL MD This examination was interpreted and the report reviewed and electronically signed by: MILLY GILL MD on Jan 13 2023 4:48PM EST [id number] Normal [facility] XR KNEE GENERAL 4V AP BOTH/P A BOTH/LAT/MERC BILATERALon 01-13-2023 [facility] CNOVon 01-05-2023 CNOV Office Visit (SPNSMN) ---- PORTER MARAVILLA ([id number]) 1985 M Date Time Provider Department 01/05/23 3:00 PM SHEA PLASENCIAMN During your visit today, we recorded the following information about you: Pulse Respiration Blood pressure Weight 97/minute 18/minute 109/63 111.1 kg Height 1.918 m Shea Plasencia APRN.SHIPPING HAND 01/06/2023 10:40 AM Signed SPINE SURGERY OUTPATIENT [...] paralysis, sei (more content not included)... Normal [facility] Basophils Auto (Bld) [#/Vol] Ordered By: Jelena Gregorio on 10-22-2022 Basophils (Bld) [#/Vol] 0.1 10*3/uL 0.0-0.2 [facility] Basophils/100 WBC Auto (Bld) Ordered By: Jelena Gregorio on 10-22-2022 Basophils/100 WBC (Bld) 1.2 % . [facility] C reactive protein [Mass/vol ume] in Serum or PlasmaOrdered By: Jelena Gregorio on 10-22-2022 CRP [Mass/Vol] 0.7 mg/dL 0.0-1.0 [facility] [facility] Eosinophils Auto (Bld) [#/Vo l]Ordered By: Jelena Gregorio on 10-22-2022 Eosinophils (Bld) [#/Vol] 0.3 10*3/uL 0.0-0.45 [facility] Eosinophils/100 WBC Auto (Bl d)Ordered By: Jelena Gregorio on 10-22-2022 Eosinophils/100 WBC (Bld) 6.8 % . [facility] Erythrocyte distribution wid th Auto (RBC) [Ratio]Ordered By: Jelena Gregorio on 10-22-2022 Erythrocyte distribution width (RBC) [Ratio] 15.9 % 12.0-14.8 [facility] Erythrocyte sedimentation ra te by Photometric methodOrdered By: Jelena Gregorio on 10-22-2022 ESR Photometric method (Bld) [Velocity] 12 mm/hr 0-14 [facility] Hematocrit Auto (Bld) [Volum e fraction]Ordered By: Jelena Gregorio on 10-22-2022 Hematocrit (Bld) [Volume fraction] 42.2 % 38.8-50.0 [facility] Hemoglobin [Mass/volume] in BloodOrdered By: Jelena Gregorio on 10-22-2022 Hemoglobin (Bld) [Mass/Vol] 13.7 g/dL 13.0-17.0 [facility] Leukocytes [#/volume] correc mejia for nucleated erythrocytes in Blood by Automated counOrdered By: Jelena Gregorio on 10-22-2022 WBC corrected for nucl RBC Auto (Bld) [#/Vol] 4.8 10*3/uL 4.1-10.5 [facility] Lymphocytes Auto (Bld) [#/Vo l]Ordered By: Jelena Gregorio on 10-22-2022 Lymphocytes (Bld) [#/Vol] 2.4 10*3/uL 1.00-4.8 [facility] Lymphocytes/100 WBC Auto (Bl d)Ordered By: Jelena Gregorio on 10-22-2022 Lymphocytes/100 WBC (Bld) 50.6 % . [facility] MCH Auto (RBC) [Entitic mass ]Ordered By: Jelena Gregorio on 10-22-2022 MCH (RBC) [Entitic mass] 27.4 pg 27.5-35.2 [facility] MCHC Auto (RBC) [Mass/Vol]Or dered By: Jelena Gregorio on 10-22-2022 MCHC (RBC) [Mass/Vol] 32.6 g/dL 32.5-35.6 [facility] MCV Auto (RBC) [Entitic vol] Ordered By: Jelena Gregorio on 10-22-2022 MCV (RBC) [Entitic vol] 83.9 fL 83.5-101 [facility] Monocytes Auto (Bld) [#/Vol] Ordered By: Jelena Gregorio on 10-22-2022 Monocytes (Bld) [#/Vol] 0.4 10*3/uL 0.0-0.8 [facility] Monocytes/100 WBC Auto (Bld) Ordered By: Jelena Gregorio on 10-22-2022 Monocytes/100 WBC (Bld) 7.9 % . [facility] Neutrophils Auto (Bld) [#/Vo l]Ordered By: Jelena Gregorio on 10-22-2022 Neutrophils (Bld) [#/Vol] 1.6 10*3/uL 1.8-7.7 [facility] Neutrophils/100 WBC Auto (Bl d)Ordered By: Jleena Gregorio on 10-22-2022 Neutrophils/100 WBC (Bld) 33.5 % . [facility] Nucleated erythrocytes [Pres ence] in Blood by Automated countOrdered By: Jelena Gregorio on 10-22-2022 Nucleated RBC Auto Ql (Bld) 0.2 /100{WBC} 0-0.5 [facility] Platelet mean volume Auto (B ld) [Entitic vol]Ordered By: Jelena Gregorio on 10-22-2022 Platelet mean volume (Bld) [Entitic vol] 8.4 fL 6.6-10.1 [facility] Platelets Auto (Bld) [#/Vol] Ordered By: Jelena Gregorio on 10-22-2022 Platelets (Bld) [#/Vol] 213 10*3/uL 150-450 [facility] RBC Auto (Bld) [#/Vol]Ordere d By: Jelena Gregorio on 10-22-2022 RBC (Bld) [#/Vol] 5.02 10*6/uL 3.90-5.60 [facility] WBC Auto (Bld) [#/Vol]Ordere d By: Jelena Gregorio on 10-22-2022 WBC (Bld) [#/Vol] 4.8 10*3/uL 4.1-10.5 [facility] Urine culture routineOrdered By: Jelena Gregorio on 05-21-2022 Bacteria identified Cx Nom (U) 2 Days [facility] Automated erythrocytes count in urine sediment (number/area)Ordered By: Jelena Gregorio on 05-19-2022 RBC Auto (Urine sed) [#/Area] None seen [HPF] 0-4 [facility] Automated leukocytes count i n urine sediment (number/area)Ordered By: Jelena Gregorio on 05-19-2022 WBC Auto (Urine sed) [#/Area] 5-9 [HPF] 0-4 [facility] Bilirubin Test strip Ql (U)O rdered By: Jelena Gregorio on 05-19-2022 Bilirubin Ql (U) Negative Negative [facility] Color Auto (U)Ordered By: Tho Gregorio on 05-19-2022 Color (U) Yellow Yellow [facility] Ketones Auto test strip (U) [Mass/Vol]Ordered By: Jelena Gregorio on 05-19-2022 Ketones (U) [Mass/Vol] Negative Negative [facility] - UrinalysisOrder ed By: Jelena Gregorio on 05-19-2022 Hyaline casts LM Ql (Urine sed) None seen [LPF] 0-8 [facility] Nitrite Test strip Ql (U)Ord ered By: Jelena Gregorio on 05-19-2022 Nitrite Ql (U) Negative Negative [facility] Protein Auto test strip (U) [Mass/Vol]Ordered By: Jelena Gregorio on 05-19-2022 Protein (U) [Mass/Vol] Negative Negative [facility] Specific gravity Auto test s trip (U) [Rel density]Ordered By: Jelena Gregorio on 05-19-2022 Specific gravity (U) [Rel density] 1.016 1.001-1.030 [facility] Squamous epithelial cells de tection in urine sediment by light microscopyOrdered By: Jelena Gregorio on 05-19-2022 Epithelial cells.squamous LM Ql (Urine sed) None seen [HPF] 0-2 [facility] Urine bacteria detection by automated methodOrdered By: Jelena Gregorio on 05-19-2022 Bacteria Auto Ql (U) None seen None Seen [facility] Urine clarity by refractomet ry automatedOrdered By: Jelena Gregorio on 05-19-2022 Clarity Refractometry automated (U) Clear Clear [facility] Urine glucose measurement by automated test strip (mass/volume)Ordered By: Jelena Gregorio on 05-19-2022 Glucose Auto test strip (U) [Mass/Vol] Normal mg/dL Normal [facility] Urine hemoglobin detection b y automated test stripOrdered By: Jelena Gregorio on 05-19-2022 Hemoglobin Auto test strip Ql (U) Negative Negative [facility] Urine leukocyte esterase det ection by automated test stripOrdered By: Jelena Gregorio on 05-19-2022 Leukocyte esterase Auto test strip Ql (U) 4+ Negative [facility] Urobilinogen Auto test strip (U) [Mass/Vol]Ordered By: Jelena Gregorio on 05-19-2022 Urobilinogen (U) [Mass/Vol] Normal mg/dL Normal [facility] pH Auto test strip (U)Ordere d By: Jelena Gregorio on 05-19-2022 pH (U) 6.0 [pH] 5.0-9.0 [facility] LITHIUMon 03-04-2022 [place] (Eskalith(R)), Serum <0.1 Critically low 0.5-1.2 [facility] Comment on above: Result Comment: Plas ma concentration of 0.5 - 0.8 mmol/L are advised for long-term use; concentrations of up to 1.2 mmol/L may be necessary during acute treatment. Verified by repeat analysis Detection Limit = 0.1 <0.1 indicates None Detected Performed By: #### L ITHIUM #### [facility] [address] [place] [address] Dr. Ksenia Rudolph LIPID PROFILEon 03-02-2022 CHOL-HDL RATIO NORM SEE BELOW Normal [facility] Comment on above: Result Comment: 3.3 - 4.4 LOW RISK 4.4 - 7.1 AVERAGE RISK 7.1 - 11.0 MODERATE RISK >11.0 HIGH RISK Performed By: #### C MP, LIPID #### [facility] [address] [place] [address] Dr. Ksenia Rudolph Cholesterol [Mass/Vol] 164 mg/dL Normal <=200 Th [facility] Comment on above: Performed By: #### C MP, LIPID #### [facility] [address] [address] [address] Ksenia Rudolph Cholesterol in HDL [Mass/Vol] 47 mg/dL Normal 40-60 [facility] Comment on above: Performed By: #### C MP, LIPID #### [facility] [address] [address] [address] Ksenia Rudolph Cholesterol in LDL [Mass/Vol] 105.2 mg/dL Normal [facility] Comment on above: Performed By: #### C MP, LIPID #### [facility] [address] [place] [address] Dr. Ksenia Rudolph Cholesterol.total/Chol esterol in HDL [Mass ratio] 3.5 {ratio} Normal [facility] Comment on above: Performed By: #### C MP, LIPID #### [facility] [address] [address] [address] Ksenia Rudolph HDL NORMAL > or = 60 mg/dl - LOW CARDIOVASCULAR RISK <40 mg/dl - HIGH CARDIOVASCULAR RISK Normal [facility] Comment on above: Performed By: #### C MP, LIPID #### [facility] [address] [address] [address] Ksenia Rudolph LDL CALC NORMAL SEE BELOW Normal [facility] Comment on above: Result Comment: <100 mg/dl OPTIMAL 100 - 129 mg/dl NEAR OR ABOVE OPTIMAL 130 - 159 mg/dl BORDERLINE HIGH 160 - 189 mg/dl HIGH >190 mg/dl VERY HIGH Performed By: #### C MP, LIPID #### [facility] [address] [place] [address] Dr. Ksenia Rudolph Triglyceride [Mass/Vol] 59 mg/dL Normal <=150 [facility] Comment on above: Performed By: #### C MP, LIPID #### [facility] [address] [place] [address] Dr. Ksenia Rudolph VLDL CALC 11.8 mg/dL Normal [facility] Comment on above: Performed By: #### C MP, LIPID #### [facility] [address] [place] [address] Dr. Ksenia Rudolph PROF 14(COMP METB)on 022 Albumin [Mass/Vol] 4.3 g/dL Normal 3.4-5.0 [facility] Comment on above: Performed By: #### C MP, LIPID #### [facility] [address] [place] [address] Dr. Ksenia Rudolph Albumin/Globulin [Mass ratio] 1.6 {ratio} Normal [facility] Comment on above: Performed By: #### C MP, LIPID #### [facility] [address] [address] [address] Ksenia Rudolph ALP [Catalytic activity/Vol] 162 U/L Critically high 46-116 [facility] Comment on above: Performed By: #### C MP, LIPID #### [facility] [address] [address] [address] Ksenia Rudolph ALT [Catalytic activity/Vol] 45 U/L Normal 16-63 [facility] Comment on above: Performed By: #### C MP, LIPID #### [facility] [address] [address] [address] Ksenia Rudolph Anion gap [Moles/Vol] 11.2 mmol/L Normal [facility] Comment on above: Performed By: #### C MP, LIPID #### [facility] [address] [address] [address] Ksenia Rudolph AST [Catalytic activity/Vol] 39 U/L Critically high 15-37 [facility] Comment on above: Performed By: #### C MP, LIPID #### [facility] [address] [address] [address] Ksenia Rudolph Bilirubin [Mass/Vol] 0.4 mg/dL Normal 0.2-1.0 [facility] Comment on above: Performed By: #### C MP, LIPID #### [facility] [address] [address] [address] Ksenia Rudolph Calcium [Mass/Vol] 9.1 mg/dL Normal 8.5-10.1 [facility] Comment on above: Performed By: #### C MP, LIPID #### [facility] [address] [place] [address] Dr. Ksenia Rudolph Chloride [Moles/Vol] 103 mmol/L Normal 98-107 [facility] Comment on above: Performed By: #### C MP, LIPID #### [facility] [address] [address] [address] Ksenia Rudolph CO2 [Moles/Vol] 28.9 mmol/L Normal 21.0-32.0 [facility] Comment on above: Performed By: #### C MP, LIPID #### [facility] [address] [address] [address] Ksenia Rudolph Creatinine [Mass/Vol] 0.99 mg/dL Normal 0.70-1.30 [facility] Comment on above: Performed By: #### C MP, LIPID #### [facility] [address] [address] [address] Ksenia Rudolph EGFR-AF KUWAITI >60 Normal >=60 [facility] Comment on above: Performed By: #### C MP, LIPID #### [facility] [address] [address] [address] Ksenia Rudolph EGFR-NON AF [place]I >60 Normal >=60 [facility] Comment on above: Performed By: #### C MP, LIPID #### [facility] [address] [address] [address] Ksenia Rudolph Globulin (S) [Mass/Vol] 2.7 g/dL Normal [facility] Comment on above: Performed By: #### C MP, LIPID #### [facility] [address] [place] [address] Dr. Ksenia Rudolph Glucose [Mass/Vol] 93 mg/dL Normal 74-106 [facility] Comment on above: Performed By: #### C MP, LIPID #### [facility] [address] [place] [address] Dr. Ksenia Rudolph Potassium [Moles/Vol] 4.1 mmol/L Normal 3.5-5.1 [facility] Comment on above: Performed By: #### C MP, LIPID #### [facility] [address] [place] [address] Dr. Ksenia Rudolph Protein [Mass/Vol] 7.0 g/dL Normal 6.4-8.2 [facility] Comment on above: Performed By: #### C MP, LIPID #### [facility] [address] [address] [address] Ksenia Rudolph Sodium [Moles/Vol] 139 mmol/L Normal 136-145 [facility] Comment on above: Performed By: #### C MP, LIPID #### [facility] [address] [place] [address] Dr. Ksenia Rudolph Urea nitrogen [Mass/Vol] 8.0 mg/dL Normal 7.0-18.0 [facility] Comment on above: Performed By: #### C MP, LIPID #### [facility] [address] [place], [place] [address] Dr. Ksenia Rudolph Urea nitrogen/Creatinine [Mass ratio] 8.1 mg/mg Normal [facility] Comment on above: Performed By: #### C MP, LIPID #### [facility] [address] [place], [place] [address] Dr. Ksenia Rudolph XR KNEE LT 4V or >on 022 XR KNEE LT 4V or > IMAGES REVIEWED: XR KNEE LT 4V or > COMPARISON: 02/12/2021, 04/17/2020. CLINICAL INDICATION: Pain FINDINGS/IMPRESSION : 1. Apparent moderate joint effusion. 2. No radiographic evidence of acute osseous abnormality of the left knee. 3. Mild degenerative change. Electronically authenticated by: KATIE RODRIGUEZ Date: 2022-03-02 16:41 Normal [facility] KNEE LEFT 4VWSon 09-01-2021 KNEE LEFT 4VWS [facility] Department of Radiology [address] [place] [id number] Patient Name: PORTER MARAVILLA : 1985 Sex: M Age: Race: Black Pt. Location: [facility] Patient Status: Ordered Date: 09/01/2021 10:20:00 AM [...] evaluation. Electronically signed: Garth Marrufo. Transcribed by: [email or web address], User Resident: Electronically Signed by: GARTH MARRUFO @ 09/01/2021 10:41 AM Normal [facility] Comment on above: Order Comment: Weigh t bearing Vital Signs Date Time Vital Sign Value Performing Clinician Facility 06-28-2023 15:12-0400 Body height 190.5 cm Marin Kari PA-C Work Phone: [facility] 06-28-2023 15:12-0400 Body weight 111.13 kg Fuad Kari PA-C Work Phone: [facility] 06-28-2023 15:12-0400 Diastolic blood pressure 86 mm[Hg] Fuad Kari PA-C Work Phone: [facility] 06-28-2023 15:12-0400 Heart rate 92 /min Fuad Kari PA-C Work Phone: [facility] 06-28-2023 15:12-0400 SaO2% (BldA) [Mass fraction] 99 % Marin Kari PA-C Work Phone: [facility] 06-28-2023 15:12-0400 Systolic blood pressure 126 mm[Hg] Marin Kari PA-C Work Phone: [facility] 06-04-2023 09:30-0400 Body height 191.77 cm Trey Garrido Other [employer] Other 06-04-2023 09:30-0400 Body mass index (BMI) [Ratio] 29.62 kg/m2 Trey Garrido Other [employer] Other 06-04-2023 09:30-0400 Body weight 108.95 kg Trey Garrido Other [employer] Other 06-04-2023 09:30-0400 Diastolic blood pressure 84 mm[Hg] Trey Garrido Other [employer] Other 06-04-2023 09:30-0400 SaO2% (BldA) [Mass fraction] 99 % Trey Garrido Other [employer] Other 06-04-2023 09:30-0400 Systolic blood pressure 128 mm[Hg] Trey Garrido Other [employer] Other 04-26-2023 12:19-0400 Body height 190.5 cm Viviana Macedo MD Work Phone: [facility] 04-26-2023 12:19-0400 Body weight 108.95 kg Viviana Macedo MD Work Phone: [facility] 03-18-2023 15:28-0400 Body height 190.5 cm Destiney Garcia MD Work Phone: [facility] 03-18-2023 15:28-0400 Body temperature 98.1 [degF] Destiney Garcia MD Work Phone: [facility] 03-18-2023 15:28-0400 Body weight 108.86 kg Destiney Garcia MD Work Phone: [facility] 03-18-2023 15:28-0400 Diastolic blood pressure 85 mm[Hg] Destiney Garcia MD Work Phone: [facility] 03-18-2023 15:28-0400 Heart rate 87 /min Destiney Garcia MD Work Phone: [facility] 03-18-2023 15:28-0400 Respiratory rate 16 /min Destiney Garcia MD Work Phone: [facility] 03-18-2023 15:28-0400 SaO2% (BldA) [Mass fraction] 99 % Destiney Garcia MD Work Phone: [facility] 03-18-2023 15:28-0400 Systolic blood pressure 146 mm[Hg] Destiney Garcia MD Work Phone: [facility] 02-11-2023 16:00-0400 Body height 191.77 cm Trey Garrido Other [employer] Other 02-11-2023 16:00-0400 Body mass index (BMI) [Ratio] 29.97 kg/m2 Trey Garrido Other [employer] Other 02-11-2023 16:00-0400 Body weight 110.22 kg Trey Garrido Other [employer] Other 02-11-2023 16:00-0400 Diastolic blood pressure 80 mm[Hg] Trey Garrido Other [employer] Other 02-11-2023 16:00-0400 Systolic blood pressure 126 mm[Hg] Trey Garrido Other [employer] Other 01-13-2023 14:51-0400 Body height 191.8 cm Shea Plasencia APRN.SHIPPING HAND Work Phone: [facility] 01-13-2023 14:51-0400 Body weight 112.13 kg Shea Plasencia APRN.CNP Work Phone: [facility] 01-13-2023 14:51-0400 Diastolic blood pressure 84 mm[Hg] Shea Plasencia VULNERABILITY RESEARCHER.[employer]IPPING [employer] Work Phone: [facility] 01-13-2023 14:51-0400 Heart rate 84 /min Shea Plasencia VULNERABILITY RESEARCHER.[employer]IPPING [employer] Work Phone: [facility] 01-13-2023 14:51-0400 Respiratory rate 16 /min Shea Plasencia VULNERABILITY RESEARCHER.[employer]IPPING [employer] Work Phone: [facility] 01-13-2023 14:51-0400 SaO2% (BldA) [Mass fraction] 95 % Shea Plasencia VULNERABILITY RESEARCHER.[employer]IPPING [employer] Work Phone: [facility] 01-13-2023 14:51-0400 Systolic blood pressure 125 mm[Hg] Shea Plasencia VULNERABILITY RESEARCHER.[employer]IPPING HAND Work Phone: [facility] 12-10-2022 15:45-0400 Body height 191.77 cm Trey Garrido Other [employer] Other 12-10-2022 15:45-0400 Body mass index (BMI) [Ratio] 29.99 kg/m2 Trey Adriana Other [employer] Other 12-10-2022 15:45-0400 Body weight 110.32 kg Trey Garrido Other [employer] Other 12-10-2022 15:45-0400 Diastolic blood pressure 84 mm[Hg] Trey Garrido Other [employer] Other 12-10-2022 15:45-0400 SaO2% (BldA) [Mass fraction] 99 % Treymayra Garrido Other [employer] Other 12-10-2022 15:45-0400 Systolic blood pressure 128 mm[Hg] Trey Garrido Other [employer] Other 11-18-2022 13:45-0500 Body height 191.77 cm Trey Garrido Other [employer] Other 11-18-2022 13:45-0500 Body mass index (BMI) [Ratio] 30.88 kg/m2 Trey Garrido Other [employer] Other 11-18-2022 13:45-0500 Body weight 113.58 kg Trey Garrido Other [employer] Other 11-18-2022 13:45-0500 Diastolic blood pressure 82 mm[Hg] Trey Garrido Other [employer] Other 11-18-2022 13:45-0500 SaO2% (BldA) [Mass fraction] 99 % Trey Garrido Other [employer] Other 11-18-2022 13:45-0500 Systolic blood pressure 118 mm[Hg] Trey Garrido Other [employer] Other 10-22-2022 12:00-0500 Body height 191.77 cm [employer] Other [employer] Other 10-22-2022 12:00-0500 Body mass index (BMI) [Ratio] 29.6 kg/m2 [employer] Other [employer] Other 10-22-2022 12:00-0500 Body weight 108.86 kg [employer] Other [employer] Other 10-22-2022 12:00-0500 Diastolic blood pressure 90 mm[Hg] [employer] Other [employer] Other 10-22-2022 12:00-0500 Systolic blood pressure 132 mm[Hg] Yolande Beck Other [employer] Other 03-25-2022 12:10-0400 Diastolic blood pressure 80 mm[Hg] PHYSICIAN NO [facility] 03-25-2022 12:10-0400 Heart rate 72 /min PHYSICIAN NO [facility] 03-25-2022 12:10-0400 Respiratory rate 18 /min PHYSICIAN NO [facility] 03-25-2022 12:10-0400 SaO2% (BldA) [Mass fraction] 98 % PHYSICIAN NO [facility] 03-25-2022 12:10-0400 Systolic blood pressure 130 mm[Hg] PHYSICIAN NO [facility] 03-25-2022 11:32-0400 Inhaled oxygen flow rate 3 L/min PHYSICIAN NO [facility] 03-25-2022 10:34-0400 Body height 190.5 cm PHYSICIAN NO [facility] 03-25-2022 10:34-0400 Body mass index (BMI) [Ratio] 29.7 kg/m2 PHYSICIAN NO [facility] 03-25-2022 10:34-0400 Body weight 107.95 kg PHYSICIAN NO [facility] 03-04-2022 13:32-0400 Diastolic blood pressure 80 mm[Hg] PHYSICIAN NO [facility] 03-04-2022 13:32-0400 Heart rate 71 /min PHYSICIAN NO [facility] 03-04-2022 13:32-0400 Respiratory rate 16 /min PHYSICIAN NO [facility] 03-04-2022 13:32-0400 SaO2% (BldA) [Mass fraction] 97 % PHYSICIAN NO [facility] 03-04-2022 13:32-0400 Systolic blood pressure 132 mm[Hg] PHYSICIAN NO [facility] 03-04-2022 11:53-0400 Inhaled oxygen flow rate 3 L/min PHYSICIAN NO [facility] 03-04-2022 11:00-0400 Body height 190.5 cm PHYSICIAN NO [facility] 03-04-2022 11:00-0400 Body mass index (BMI) [Ratio] 29.3 kg/m2 PHYSICIAN NO [facility] 03-04-2022 11:00-0400 Body weight 106.59 kg PHYSICIAN NO [facility] 02-16-2022 17:00-0400 Body height 191.77 cm Trey Garrido Other [employer] Other 02-16-2022 17:00-0400 Diastolic blood pressure 70 mm[Hg] Trey Adriana Other [employer] Other 02-16-2022 17:00-0400 SaO2% (BldA) [Mass fraction] 98 % Trey Adriana Other [employer] Other 02-16-2022 17:00-0400 Systolic blood pressure 110 mm[Hg] Trey Adriana Other [employer] Other 01-28-2022 11:15-0400 Body height 191.77 cm Dario Marroquin Other [employer] Other 01-28-2022 11:15-0400 Body mass index (BMI) [Ratio] 30.3 kg/m2 Dario Marroquin Other [employer] Other 01-28-2022 11:15-0400 Body weight 111.45 kg Dario Marroquin Other [employer] Other 11-26-2021 10:00-0400 Body height 191.77 cm Dario Marroquin Other [employer] Other 11-26-2021 10:00-0400 Body mass index (BMI) [Ratio] 30.83 kg/m2 Dario Marroquin Other [employer] Other 11-26-2021 10:00-0400 Body weight 113.4 kg Dario Marroquin Other [employer] Other 07-30-2021 10:30-0500 Body height 191.77 cm Dario Marroquin Other [employer] Other 07-30-2021 10:30-0500 Body mass index (BMI) [Ratio] 30.83 kg/m2 Dario Esparzaradha Other [employer] Other 07-30-2021 10:30-0500 Body weight 113.4 kg Dario Esparzaradha Other [employer] Other 07-30-2021 10:30-0500 Diastolic blood pressure 75 mm[Hg] Dario Madseneda Other [employer] Other 07-30-2021 10:30-0500 Systolic blood pressure 130 mm[Hg] Dario Marroquin Other [employer] Other NEGATED: Highlighted row BMI (Body Mass Index) [facility] NEGATED: Highlighted row BMI (Body Mass Index) [facility] NEGATED: Highlighted row Body [...] Medical Ctr NEGATED: Highlighted row Pulse [facility]xim[facility] NEGATED: Highlighted row Pulse Oximetry [facility] NEGATED: Highlighted row Respiratory Rate [facility] NEGATED: Highlighted row Respiratory Rate [facility] Encounters Encounter Date Encounter Type Care Provider Facility Start: 03-22-2025 ambulatory Jomar Fall Miranda acility:[facility] Start: 02-21-2025 End: 02-21-2025 ambulatory Taz R NILL Facility:[facility] Start: 02-21-2025 End: 02-21-2025 Patient encounter procedure Taz R NILL [facility] [place] Start: 02-06-2025 Evaluation and management of inpatient [facility] Start: 01-23-2025 End: 01-23-2025 Subsequent hospital visit by physician Joanne Odonnell X-Ray 3 [facility] Comment on above: Left knee pain, unsp ecified chronicity Right knee pain, uns pecified chronicity Start: 01-23-2025 End: 01-23-2025 Office outpatient visit 40 minutes Nakul Sosa MD Work Phone: [facility] Comment on above: Primary osteoarthrit is of right knee (Primary Dx); Left knee pain, unspecified chronicity; Right knee pain, unspecified chronicity Start: 01-23-2025 End: 01-23-2025 ambulatory [facility] Start: 01-15-2025 ambulatory Taz NILL Facility:[facility] Berger Start: 01-12-2025 ambulatory Taz NILL Facility:Jimena Ferrari Andrea Start: 11-16-2024 End: 11-16-2024 [...] Not Available Start: 10-30-2024 End: 10-30-2024 Bamboo babs Rosenberg PhD Work Phone: [facility] Start: 10-30-2024 End: 10-30-2024 Bamboo flowsnikhil Rosenberg PhD Work Phone: [facility] Start: 08-01-2024 End: 08-01-2024 ambulatory [facility] Start: 08-01-2024 End: 08-01-2024 Office outpatient visit 25 minutes Nakul Sosa MD Work Phone: [facility] Comment on above: Left knee pain, unsp ecified chronicity (Primary Dx) Start: 05-23-2024 End: 05-23-2024 Subsequent hospital visit by physician Joanne Odonnell X-Ray 3 [facility] Comment on above: Left knee pain, unsp ecified chronicity; Right knee pain, unspecified chronicity Start: 05-23-2024 End: 05-23-2024 ambulatory [facility] Start: 05-23-2024 End: 05-23-2024 Office outpatient new 45 minutes Nakul Sosa MD Work Phone: [facility] Comment on above: Left knee pain, unsp ecified chronicity (Primary Dx); Right knee pain, unspecified chronicity Start: 04-28-2024 End: 04-28-2024 Office outpatient visit 25 minutes Mari Jelena Gregorio DO Work Phone: [facility] Comment on above: Acute pain of left k nee (Primary Dx); History of left knee replacement; Primary osteoarthritis of right knee Start: 04-28-2024 End: 04-28-2024 ambulatory Mari JELENA GREGORIO Not Available Start: 02-25-2024 End: 02-25-2024 ambulatory MariJELENA ANITHA Not Available Start: 08-19-2023 ambulatory JURGEN BRAMBILA [facility] Start: 08-16-2023 End: 08-17-2023 ambulatory DAMARIS ANA [facility] Start: 08-02-2023 End: 08-02-2023 [facility] Pooja Cordon MD Work Phone: Psychiatry Pain Recovery Comment on above: Chronic pain syndrom e (Primary Dx); Pain disorder associated with psychological factors and medical condition; RESHMA (generalized anxiety disorder); Chronic use of benzodiazepine for therapeutic purpose; MDD (major depressive disorder), recurrent episode, moderate (HCC) Start: 07-12-2023 End: 07-12-2023 ambulatory PHYSICIAN [facility] Work Phone: Start: 07-12-2023 End: 07-12-2023 Patient encounter procedure PHYSICIAN [facility] Work Phone: Start: 07-02-2023 End: 07-02-2023 ambulatory Nelda Sheriff APRN.[employer]IP[employer] HAND Work Phone: Telemedicine Comment on above: Treatment not availa ble (Primary Dx) Help Start: 07-02-2023 End: 07-02-2023 ambulatory АНДРЕЙ GOODE Facility:[facility] Start: 06-28-2023 End: 06-28-2023 ambulatory FUAD PIERCE Facility:[facility] Start: 06-28-2023 End: 06-28-2023 Patient encounter procedure Fuad Pierce PA-C Work Phone: Neurology Pain Comment on above: History of left knee replacement (Primary Dx); Chronic pain of left knee; Bipolar 1 disorder (HCC) Start: 06-11-2023 End: 06-11-2023 ambulatory SHEA PLASENCIA Facility:[facility] Start: 06-10-2023 ambulatory Shea AGGARWAL RN.SHIPPING HAND Work Phone: [facility] Start: 06-10-2023 Patient encounter procedure Shea Plasencia APRN.SHIPPING HAND Work Phone: [facility] Comment on above: Appointment Start: 06-09-2023 End: 06-09-2023 ambulatory KELLE GORDON Facility:[facility] Start: 06-04-2023 End: 06-04-2023 ambulatory Trey Garrido Other [employer] Other Start: 06-04-2023 Office outpatient vi sit 25 minutes Trey Adriana [facility] [place] Start: 06-01-2023 ambulatory Kelle Gordon D O Work Phone: [facility] Start: 06-01-2023 Patient encounter procedure Kelle Gordon DO Work Phone: [facility] Comment on above: Appointment Start: 05-29-2023 ambulatory Shea AGGARWAL RN.SHIPPING HAND Work Phone: [facility] Comment on above: Call Start: 05-03-2023 End: 05-03-2023 ambulatory Trey Garrido Other [employer] Other Start: 05-03-2023 Telephone encounter Trey Garrido [facility] Start: 04-30-2023 Telephone encounter Toribio mills PA-C Work Phone: Orthopaedics Comment on above: Patient Question (Pa in/) Start: 04-28-2023 End: 06-12-2023 ambulatory Shea Plasencia APRN.[employer]IPPING HAND Work Phone: [facility] Comment on above: Left leg pain (Prima ry Dx); Chronic pain of left knee; Spasm of muscle; Gait instability; Suicidal ideation Start: 04-28-2023 End: 04-28-2023 Telemedicine consultation with patient Shea Luis Angel SAL Work Phone: [facility] Start: 04-26-2023 End: 04-26-2023 ambulatory VIVIANA MACEDO Facility:[facility] Start: 04-26-2023 End: 04-26-2023 Patient encounter procedure Viviana Macedo MD Work Phone: Orthopaedics Comment on above: Status post total le ft knee replacement (Primary Dx) Start: 03-24-2023 Refill Shea AGGARWAL RN.SHIPPING HAND Work Phone: [facility] Comment on above: Refill Request Start: 03-22-2023 ambulatory Shea AGGARWAL RN.SHIPPING HAND Work Phone: [facility] Comment on above: Advice Start: 03-22-2023 Follow-up encounter Shea carrasco APRN.SHIPPING HAND Work Phone: [facility] Comment on above: Follow up Start: 03-22-2023 Telephone encounter Destiney glass MD Work Phone: Pain Management Comment on above: Nurse Triage Call (T ENS unit information) Start: 03-18-2023 End: 03-18-2023 ambulatory DESTINEY GARCIA Facility:[facility] Start: 03-18-2023 End: 03-18-2023 Patient encounter procedure Destiney Garcia MD Work Phone: Pain Management Comment on above: Neuralgia and neurit is (Primary Dx); Left leg pain; Myofascial pain; Spasm of muscle; Lumbar pain; Bilateral chronic knee pain; History of seizure; History of left knee replacement; BMI 30.0-30.9,adult Start: 03-15-2023 Orders Only Toribio arthur PA-C Work Phone: Orthopaedics Comment on above: Chronic pain of left knee (Primary Dx) Patient Question; Kathryn stanley (labs) Start: 03-05-2023 End: 03-06-2023 ambulatory TORIBIO HAMMOND Facility:[facility] Start: 03-05-2023 End: 03-05-2023 ambulatory SHEA PLASENCIA Facility:[facility] Start: 03-05-2023 End: 03-05-2023 Patient encounter procedure Toribio Hammond PA-C Work Phone: Orthopaedics Comment on above: Pain due to total le ft knee replacement, initial encounter ([facility]) (Primary Dx); Effusion of left knee; Tear of medial meniscus of right knee, current, unspecified tear type, initial encounter Start: 02-23-2023 ambulatory Shea AGGARWAL RN.SHIPPING HAND Work Phone: [facility] Comment on above: Ortho Start: 02-22-2023 End: 02-22-2023 [facility] Start: 02-21-2023 Refill Shea AGGARWAL RN.SHIPPING HAND Work Phone: [facility] Comment on above: Refill Request Start: 02-16-2023 ambulatory Kelle Templeton Work Phone: [facility] Comment on above: Pain increasing Start: 02-11-2023 End: 02-11-2023 ambulatory Trey Garrido Other [employer] Other Start: 02-11-2023 Office outpatient vi sit 15 minutes Trey Garrido [facility] Start: 02-05-2023 End: 02-06-2023 ambulatory АНДРЕЙ GOODE Facility:[facility] Start: 01-23-2023 End: 01-24-[address] DOCTOR OLVERA Facility:[facility] Start: 01-13-2023 End: 01-13-2023 ambulatory SHEA PLASENCIA Facility:[facility] Start: 01-13-2023 End: 01-14-2023 ambulatory SHEA PLASENCIA Facility:[facility] Start: 01-13-2023 End: 01-14-2023 ambulatory SHEA PLASENCIA Facility:[facility] Start: 01-13-2023 End: 01-13-2023 ambulatory Emg 1000) Work Phone: Neurology Comment on above: EMG Start: 01-13-2023 End: 01-13-2023 Patient encounter procedure Emg 4 Neur Main (Max Weight: 1000) Work Phone: [facility] Comment on above: Spondylosis with mye lopathy, thoracic region (Primary Dx); Gait instability; Radiculopathy of lumbar region; Effusion of left knee; Tear of medial meniscus of right knee, current, unspecified tear type, initial encounter Start: 01-05-2023 End: 01-06-2023 ambulatory SHEA PLASENCIA Facility:[facility] Start: 12-25-2022 Chart abstracting Unknown (His torical) VULNERABILITY RESEARCHER Neurology Start: 12-10-2022 End: 12-10-2022 ambulatory Trey Garrido Other [employer] Other Start: 12-10-2022 Office outpatient vi sit 25 minutes Trey Adriana [facility] Start: 11-19-2022 End: 11-19-2022 ambulatory Trey Garrido Other [employer] Other Start: 11-19-2022 Telephone encounter Trey Garrido [facility] Start: 11-18-2022 End: 11-18-2022 ambulatory Trey Garrido Other [employer] Other Start: 11-18-2022 Office outpatient vi sit 25 minutes Trey Adriana [facility] Start: 10-22-2022 Office outpatient vi sit 15 minutes Yolande Beck [facility] Start: 10-22-2022 End: 10-22-2022 ambulatory PHYSICIAN NO [facility] Work Phone: Start: 10-22-2022 End: 10-22-2022 Patient encounter procedure PHYSICIAN NO [facility] Work Phone: Start: 05-28-2022 End: 05-28-2022 Patient encounter procedure PHYSICIAN NO [facility] [address] Start: 05-19-2022 End: 05-19-2022 Patient encounter procedure PHYSICIAN NO [facility]-E[facility]-Ldqjlwfk Testing Start: 03-25-2022 (Procedure) Short Trey Garrido [facility] Start: 03-25-2022 End: 03-25-2022 ambulatory Trey Garrido Other [employer] Other Start: 03-25-2022 End: 03-25-2022 [facility] Start: 03-11-2022 End: 03-11-2022 ambulatory Trey Garrido Other [employer] Other Start: 03-11-2022 Office outpatient vi sit 15 minutes Trey Adriana [facility] Start: 03-04-2022 (Procedure) Short Trey Garrido [facility] Start: 03-04-2022 End: 03-04-2022 ambulatory Trey Garrido Other [employer] Other Start: 03-04-2022 End: 03-04-2022 Admission to [facility] day [facility] Start: 03-02-2022 End: 03-03-[address] [facility] Facility: Start: 02-16-2022 End: 02-16-2022 ambulatory Trey Garrido Other [employer] Other Start: 02-16-2022 Office outpatient vi sit 25 minutes Trey Adriana [facility] Start: 01-28-2022 End: 01-28-2022 ambulatory Dario Marroquin Other [employer] Other Start: 01-28-2022 Office outpatient vi sit 15 minutes Dario Marroquin [facility] [place] Start: 11-26-2021 End: 11-26-2021 ambulatory Dario Marroquin Other [employer] Other Start: 11-26-2021 Office outpatient vi sit 15 minutes Dario Marroquin [facility] [place] Start: 08-11-2021 End: 08-11-2021 ambulatory Dario Marroquin Other [facility] Other Start: 08-11-2021 Telephone encounter Dario Jean [facility] Start: 07-30-2021 End: 07-30-2021 ambulatory Dario Lopez Other [facility] Other Start: 07-30-2021 Office outpatient vi sit 15 minutes Dario Marroquin [facility] [place] Procedures Date Procedure Procedure Detail Performing Clinician Start: 01-23-2025 Arthrocentesis aspir &/inj major jt/bursa w/o us Nakul Sosa MD Work Phone: Start: 01-23-2025 End: 01-23-2025 Radiologic examination knee 3 views Nakul Sosa MD Work Phone: Start: 05-23-2024 Radiologic examinati on knee 3 views Nakul Sosa MD Work Phone: Start: 07-12-2023 Radionuclide three-p hase bone study PHYSICIAN NO FAMILY Start: 03-22-2023 History of operative procedure on knee History of left knee replacement Destiney Garcia MD Work Phone: Start: 01-13-2023 Nerve conduction brittaney dies 5-6 studies Shea Plasencia VULNERABILITY RESEARCHER.[employer] Work Phone: Start: 10-22-2022 X-ray of lumbar spin e, four views PHYSICIAN NO FAMILY Start: 05-28-2022 Plain X-ray of bilat eral femurs PHYSICIAN NO FAMILY Start: 05-28-2022 Plain X-ray of bilat eral tibia and bilateral fibula PHYSICIAN NO FAMILY Start: 03-25-2022 Local anesthetic sac ral epidural block PHYSICIAN NO FAMILY Start: 03-04-2022 Injection of spinal epidural space PHYSICIAN NO FAMILY Cholecystectomy Taz CANAS Diabetes mellitus screening Dario Marroquin Other History [...] History of left knee replacement Jr. Jelena Stallings Stepanic DO Work Phone: Hyperlipidemia screening Mike Marroquin Other Lumbar spinal fusion Taz CANAS Repair of joint of l eft knee Taz CANAS Repair of meniscus Taz KELLEY Comment on above: x 4 Urine culture PHYSICIAN NO F AMILY Plan of Treatment Date Care Activity Detail Author Start: 2037 Zoster Vaccines (1 o f 2) Zoster Vaccines (1 of 2) [facility] Start: 05-14-2025 Influenza vaccination Influenz a Vaccine (Season Ended) [facility] Start: 03-09-2025 End: 03-09-2025 Patient encounter procedure 03/09/2025 1:15 PM EDT Office Visit [facility] [address] [address] Moe Cuellar, PAJamesC [address] [facility], [address] [place] [address] [id number] [facility] Start: 02-22-2025 End: 02-22-2025 Admission to same day surgery center 02/22/2025 1:20 PM EDT - 02/22/2025 3:50 PM EDT Surgery [facility] [place] [address] [place] [phone] Nakul Sosa MD [address] [facility], [address] [place] [address] [phone] REVISION, TOTAL ARTHROPLASTY, KNEE [21687 (CPT )] [facility] [place] Comment on above: REVISION, TOTAL ARTH ROPLASTY, KNEE [45053 (CPT )] Start: 02-22-2025 End: 02-22-2025 Revj tot knee arthrp fem&entire tibial compone REVISION, TOTAL ARTHROPLASTY, KNEE Mechanical loosening of internal left knee prosthetic joint, initial encounter 02/22/2025 1:20 PM EDT Sarah [facility] Start: 02-22-2025 Subsequent hospital visit by physician 02/22/2025 1:20 PM EDT Hospital Encounter [facility] [place] [address] [place] [address], [place] [address] Nakul Sosa MD [address] [facility], [address] [place] [id number] [facility] [place] Start: 02-16-2025 End: 02-16-2025 Patient encounter procedure 02/16/2025 1:30 PM EDT Office Visit [facility] [address] [place] [phone] Moe Cuellar, PA-C [address] [facility], [address] [place] [id number] [facility] Start: 02-09-2025 End: 02-09-2025 Admission to establishment 02/09/2025 11:30 AM EDT Pre-Admission Testing [address] [place] [address] [facility] Start: 11-28-2024 End: 11-28-2024 Patient encounter procedure 11/28/2024 9:00 AM EDT Office Visit ROBERTO AKINS [address] [place] [address] Leoncio Rosenberg, PhD [address] [place] [address] ROBERTO AKINS Start: 11-16-2024 End: 11-16-2024 Patient encounter procedure 11/16/2024 9:00 AM EST Office Visit ROBERTO AKINS [address] [place] [address] ROBERTO HDZY Start: 10-30-2024 End: 10-30-2024 Patient encounter procedure 10/30/2024 2:30 PM EST Office Visit ROBERTO ARCOSUSKY [address] [facility] [address] [place] [address] Leoncio Rosenberg, PhD [address] [place] [address] Arrived ROBERTO ACROSUSKY Comment on above: Arrived Start: 08-23-2024 End: 08-23-2024 Patient encounter procedure 08/23/2024 9:45 AM EST Office Visit [facility] [address] [place] [address] Jr. Jelena Gregorio, DO [address] [facility] [address] [place] [address] [facility] Start: 05-14-2024 COVID-19 Vaccine ( season) COVID-19 Vaccine ( season) [facility] Start: 05-14-2024 COVID-19 Vaccine ( season) COVID-19 Vaccine ( season) [facility] Start: 05-14-2024 Influenza vaccination Influenza Vacc ine (#1) [facility] Start: 05-14-2023 Influenza vaccination C [facility] Start: 09-13-2022 DEPRESSION ASSESSMENT DEPRESSION ASS ESSMENT [facility] Start: 2022 Lipid 1996 panel - Serum or Plasma Lipid Screening [facility] Start: 2022 LIPID SCREEN LIPID SCREEN [facility] Start: 03-25-2022 [facility] Work Phone: Start: 03-04-2022 [facility] Work Phone: Start: 2009 DTaP/Tdap/Td Vaccine s (1 - Tdap) DTaP/Tdap/Td Vaccines (1 - Tdap) [facility] Start: 2006 Hepatitis B Vaccines (1 of 3 - 19+ 3-dose series) Hepatitis B Vaccines (1 of 3 - 19+ 3-dose series) [facility] Start: 2006 Urine microalbumin profile [facility] Start: 2005 HEPATITIS C SCREENING HEPATITIS C [facility] Start: 2005 Hepatitis C screening Hepatitis C [facility] Start: 2005 HIV SCREENING [facility]CRE[facility] Start: 2000 Varicella vaccination Varicell a Vaccines (1 of 2 - 13+ 2-dose series) [facility] Start: 1988 MMR Vaccines (1 of 1 - Standard series) MMR Vaccines (1 of 1 - Standard series) [facility] Start: 01-16-1988 COVID-19 VACCINE (#1) COVID-19 VACCI NE (#1) [facility] Start: 1987 HEPATITIS B (1 of 3 - 3-dose series) HEPATITIS B (1 of 3 - 3-dose series) [facility] Start: 1987 Hepatitis B Vaccine (1 of 3 - 3-dose series) Hepatitis B Vaccine (1 of 3 - 3-dose series) [facility] Start: 1987 HIV screening HIV Screening [facility] Start: 1987 Lipid panel Lipid Panel [facility] Start: 1987 Yearly Adult Physical Yearly Adult P [facility] Bacteria identified in Urine by Culture [facility] End: 02-12-2024 Mri spinal canal thoracic w/o contrast matrl MRI THORACIC SPINE WO IVCON Radiology Routine Radiculopathy of lumbar region Gait instability Spondylosis with myelopathy, thoracic region 1 Occurrences starting 01/13/2023 until 02/12/2024 [facility] Work Phone: Comment on above: 1 Occurrences starti ng 01/13/2023 until 02/12/2024 Patient Education Adriana Non Diagn ostic Block [facility] Work Phone: Patient referral [facility] Work Phone: [facility] Immunizations Immunization Date Immunization Notes Care Provider Fa cility 06-13-2019 influenza, injectabl e, quadrivalent, preservative free PHYSICIAN NO [facility] 06-13-2019 influenza virus vaccine, unspecified formulation Shea Plasencia APRN.SHIPPING HAND Work Phone: [facility] Payers Date Payer Category Payer Self-pay 2021 Medicaid [id number] 2021 Medicaid (Managed Care) 1.2. [id number] 2021 Private Health Insurance [facility] MEDICA[facility] [id number] 2021 Unknown [employer] AND DISABLED [id number] 2021-Present [address] [place] [address] [id number] 1987 Unknown [id number] 2.16.840.1.327613.3.579.2. 593 1987 Unknown [id number] 2.16.840.1.124198.3.579.2. 593 1987 Unknown [id number] 2.16.840.1.155026.3.579.2. 593 1987 Unknown [id number] 2.16.840.1.276057.3.579.2. 732 1987 Unknown [id number] 2.16.840.1.933040.3.579.2. 1259 1987 Unknown [id number] 2.16.840.1.003440.3.579.2. 1259 1987 Unknown [id number] 2.16.840.1.913352.3.579.2. 1259 1987 Unknown [id number] 2.16.840.1.704315.3.579.2. 1259 1987 Unknown [id number] 2.16.840.1.994234.3.579.2. 9 1987 Unknown [id number] 2.16.840.1.229387.3.579.2. 1246 1987 Unknown [id number] 2.16.840.1.320591.3.579.2. 6 1987 Unknown [id number] 2.16.840.1.583049.3.579.2. 1246 1987 Unknown [id number] 2.16.840.1.749710.3.579.2. 1246 1987 Unknown [id number] 2.16.840.1.586348.3.579.2. 1246 1987 Unknown [id number] 2.16.840.1.056491.3.579.2. 1246 1987 Unknown [id number] 2.16.840.1.542738.3.579.2. 1246 1987 Unknown [id number] 2.16.840.1.781042.3.579.2. 727 1987 Unknown [id number] 2.16.840.1.244254.3.579.2. 727 1959 Medicaid [id number] 1959 Unknown [id number] 2.16.840.1.340172.19 Unknown [id number] 2.16.840.1.423124.3.579.2. 531 Social History Date Type Detail Facility Start: 02-05-2023 End: 04-28-2024 Sex Assigned At [facility] Start: 05-19-2022 End: 02-21-2025 Tobacco smoking status NHIS Ex-smoker (finding) [facility] Start: 1987 Sex Assigned At Male F [facility] Start: 06-05-2022 End: 06-05-2022 Tobacco smoking status NHIS Smoker (finding) [facility] History of tobacco use Cigarette Smoker C [facility] Start: 07-17-2021 End: 01-05-2023 Tobacco use and exposure Smokeless tobacco non-user [facility] Start: 07-17-2021 End: 06-28-2023 Alcohol intake Ex-drinker (finding) [facility] Start: 1987 Sex Assigned At Not on file C [facility] Start: 01-03-2023 End: 01-23-2025 Exposure to SARS-CoV-2 (event) Not sure [facility] Start: 02-05-2023 End: 04-28-2024 History of Social function [facility] Adult Depression Screening Assessment 6 [facility] Tobacco smoking stat us MIIS Tobacco smoking consumption unknown [facility] Work Phone: Start: 04-28-2024 Alcoholic beverage intake Current drinker of alcohol (finding) [facility] Healthcare Sexual Orientation [facility] [place] Start: 12-25-2009 Sex Male (finding) [facility] Medical Equipment Procedure Code Equipment Code Equipment Origin al Text Equipment Identifier Dates Arthroplasty, knee, total, minimally invasive Orthopaedic cement, non-medicated [id number] FDA Start: 06-05-2022 Arthroplasty, knee, total, minimally invasive Orthopaedic cement, non-medicated ()[id number] FDA Start: 06-05-2022 Arthroplasty, knee, total, minimally invasive Orthopaedic bone screw, non-bioabsorbable, sterile ()[id number] FDA Start: 06-05-2022 Arthroplasty, knee, total, minimally invasive Tibial insert ()[id number] FDA Start: 06-05-2022 Arthroplasty, knee, total, minimally invasive Uncoated knee tibia prosthesis, metallic ()[id number] FDA Start: 06-05-2022 Arthroplasty, knee, total, minimally invasive Polyethylene patella prosthesis ()[id number] FDA Start: 06-05-2022 Arthroplasty, knee, total, minimally invasive Uncoated knee femur prosthesis ()[id number] FDA Start: 06-05-2022 Anterior lumbar interbody fusion (ALIF) XLIF MAS REDUCTION 1 LEVEL FDA Start: 10-08-2020 Anterior lumbar interbody fusion (ALIF) Bone-screw internal spinal fixation system, non-sterile ()[id number] FDA Start: 10-08-2020 Anterior lumbar interbody fusion (ALIF) Bone-screw internal spinal fixation system, non-sterile ()[id number] FDA Start: 10-08-2020 Anterior lumbar interbody fusion (ALIF) Bone-screw internal spinal fixation system, non-sterile ()[id number] FDA Start: 10-08-2020 Anterior lumbar interbody fusion (ALIF) Metallic spinal fusion cage, non-sterile ()[id number] FDA Start: 10-08-2020 Anterior lumbar interbody fusion (ALIF) Spinal fusion graft kit ()[id number] FDA Start: 10-08-2020 Anterior lumbar interbody fusion (ALIF) Bone matrix implant, human-derived ()[id number] FDA Start: 10-08-2020 Anterior lumbar interbody fusion (ALIF) Spinal bone screw, non-bioabsorbable ()[id number] FDA Start: 10-08-2020 Anterior lumbar interbody fusion (ALIF) Bone-screw internal spinal fixation system, non-sterile ()[id number] FDA Start: 10-08-2020 Anterior lumbar interbody fusion (ALIF) Bone-screw internal spinal fixation system, non-sterile ()[id number] FDA Start: 10-08-2020 Anterior lumbar interbody fusion (ALIF) XLIF MAS REDUCTION 1 LEVEL FDA Start: 10-08-2020 Anterior lumbar interbody fusion (ALIF) XLIF MAS REDUCTION 1 LEVEL FDA Start: 10-08-2020 Anterior lumbar interbody fusion (ALIF) XLIF MAS REDUCTION 1 LEVEL FDA Start: 10-08-2020 Goals Date Patient Goal Desired Activity /State Personal health goal Clinical Notes 07-30-2021 to 02-21-2025 Nakul Sosa MD - 01/23/2025 1:00 PM Soto Rosenberg, PhD - 11/16/2024 9:00 AM Shabana Rosenberg, PhD - 10/30/2024 2:30 PM Luz Sosa MD - 08/01/2024 1:30 PM EST Note Date & Type Note Facility 02-21-2025 Note General Surgery Offi ce/Clinic Note Chief Complaint consultation for abdominal pain and bowel changes HPI Staff 39 year old male presents on consultation from [facility] for RLQ pain and change in bowel habits. Patient reports approximate one month history of RLQ pain. Describes pain as stabbing. Pain lasts for up to 20 minutes then spontaneously resolves. Food exacerbates pain. Reports approximate 3 week history of intermittent loose stools with blood surrounding stool. He does not believe blood is in stool. He does not have blood with wiping or in toilet water. Denies rectal pain. Reports occasional nausea, denies vomiting. No weight loss. Never had colonoscopy in the past. Family history of colon cancer in uncles, both age 50's. History of Present Illness 39 yo male with h/o ADHD, bipolar d/o, chronic pain, GERD, CLEMENCIA, anxiety, seizure d/o, obesity, referred for intermittent right mid abd pain, bowel changes, and rectal bleeding; patient reports 6 week h/o intermittent sharp stabing right mid abd pain, worse after eating; relieved by lying down, no N/V; frequent loose stools, not related to pain, melena; red blood on outside of stool at times, no decreased caliber of stools; no wt loss; no NSAID use or asa; no medication changes, in imaging; abd operations significant for cholecystectomy; no previous colonoscopy; no asa or NSAID use; vapes nicotine-containing substances daily; family h/o colon cancer in patient's Uncles, dx in their 50's and 60's; no fmhx of IBD. Review of Systems PHQ Score Initial Depression Screen Score: 0 SCORE ROS - Provider Constitutional: no fever, no sweats, no weight loss. Eyes: yes glasses, no blurred vision, no visual loss. ENMT: no dentures, no hoarseness, no swallowing difficulties, no hearing loss, no ear infection(s), no nose bleeds. Cardiovascular: normal blood pressure, no chest pain, regular heartbeat, no heart murmur. Respiratory: no shortness of breath, no cough, no asthma, no wheezing. Gastrointestinal: no nausea, no vomiting, no diarrhea, no constipation, no blood in stool, no change in bowel habits, no abdominal pain, no hepatitis. Genitourinary: no kidney stones, no urine infection, no dysuria. Musculoskeletal: no pain, no weakness. Skin: no changing moles, no rash, no skin lumps. Neurologic: no seizures, no epilepsy, no headache. Psychiatric: no emotional or psychiatric problem. Heme/Lymph: no bleeding problems, no anemia, no blood clots, no transfusions. Allergy/Immunologic: no swollen lymph nodes/glands, no IV drug abuse. Other: Additional ROS info: Except as noted in the above Review of Systems and in the History of Present Illness, all other systems have been reviewed and are negative or noncontributory. Physical Exam Vitals & Measurements HR: 76(Peripheral) RR: 16 BP: 122/84 HT: 190.5 cm HT: 75 in WT: 110 kg WT: 242.508 lb BMI: 30.31 HEENT: normal conjunctiva, sclera clear, no scleral icterus, EOM intact, PERRLA, oral mucosa moist without lesions. Neck: trachea midline, no mass, symmetric, no thyromegaly or nodules, no adenopathy Respiratory: lungs CTA, respirations non labored. Cardiovascular: regular rate and rhythm, no murmur, no pedal edema or varicosities. Gastrointestinal: soft, non distended, mild tenderness, right mid abdomen, no peritoneal signs no masses, no palpable hernias, diastasis recti no, no hepatosplenomegaly; normal bs Musculoskeletal: normal gait, digits and nails without infection, nodes, cyanosis, clubbing. Skin: no rashes, no lesions, no ulcers, no subcutaneous nodules, induration. Psychiatric/Neuro: oriented to time, place, person, judgement normal, affect appropriate for age, insight intact, no focal deficits. Tests: review of old records completed , Discussed surgical options, risks, and possible complications with patient. Assessment/Plan 1. Change in bowel habits (R19.4: Change in bowel habit) plan colonoscopy under anesthesia, informed consent obtained. 2. Rectal bleeding (K62.5: Hemorrhage of anus and rectum) see # 1 3. Family history of colon cancer (Z80.0: Family history of malignant neoplasm of digestive organs) see # 1 4. Right sided abdominal pain (R10.9: Unspecified abdominal pain) see # 1 5. Vapes nicotine containing substance (Z72.0: Tobacco use) We strongly recommend to quit tobacco use. Cigarette smoking harms nearly every organ of the body, causes many diseases, and reduces the health of smokers in general. Quitting smoking lowers your risk for smoking-related diseases and can add years to your life. We encourage you to visit www.smokefree.gov access to helpful resources including free telephone support. If you decide on prescription treatment to help you quit, your family doctor would be happy to provide these. Follow-up No qualifying data available Problem List/Past Medical History Ongoing Anxiety Attention deficit hyperactivity disorder Bipolar disorder BMI 30.0-30.9,adult Change in bowel habits (more content not included)... [facility] Comment on above: Result Comment: Elec tronically Signed By: MISSAEL DOTSON, Taz Drake\Date and Time Signed: 02/21/25 15:08 EDT 01-23-2025 History of Present illness Narrative Associated [...] knee on imaging that was done at [facility]. He came here for second opinion today. [...] to verify the correct patient, procedure, equipment, computer network support specialist and site/side marked as required. Patient was [...] grammatical areas may persist related to the [employer] software Moe Cuellar PA-C, [facility] [place] In a muew-hd-juhz encounter performed today, I Nakul Sosa MD [...] grammatical areas may persist related to the [employer] software Nakul Sosa MD Senior Attending Physician [facility] documented in this encounter [facility] Work Phone: 11-16-2024 History of Present [...] drinking altogether 3 years ago. Vapes nicotine. [place] language Bruneian. Completed 11 years of formal education. 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 Volunteers at a local [employer] but has struggles staying focused and remaining [...] design >16th %ile. Motor/Speed of Processing: Right-handed. Fisher strength <1st %ile with right-hand, 1st %ile [...] Please contact me with any questions at [phone]. documented in this encounter [facility] 10-30-2024 History of Present illness Narrative Images [...] drinking altogether 3 years ago. Vapes nicotine. [place] language Bruneian. Completed 11 years of formal education. 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 Volunteers at a local [employer] but has struggles staying focused and remaining [...] Please contact me with any questions at [phone]. documented in this encounter [facility] 08-01-2024 History of Present illness Narrative Images [...] grammatical areas may persist related to the [employer] software Moe Cuellar PA-C, [facility] [place] In a bhvg-cz-kzxt encounter performed today, I Nakul Sosa MD [...] grammatical areas may persist related to the [employer] software Nakul Sosa MD Senior Attending Physician [facility] documented in this encounter [facility] Work Phone: 05-23-2024 History of Present [...] 05/23/2024 2:30 pm INDICATION: Signs/Symptoms:PAIN. ACCESSION NUMBER(S): [id number] ORDERING CLINICIAN: NAKUL SOSA FINDINGS: Left knee weightbearing four views. Status post cemented total knee replacement there is shadowing along the tibial component with slight subsidence along the medial aspect. No gross malalignment no signs of fracture dislocation or other bony abnormality Signed by: Nakul Sosa 05/23/2024 4:42 PM Dictation workstation: [id number] XR knee right 4+ views Result Date: 05/23/2024 Interpreted By: Nakul Sosa, STUDY: XR KNEE RIGHT 4+ VIEWS; 05/23/2024 2:30 pm INDICATION: Signs/Symptoms:pain. ACCESSION NUMBER(S): [id number] ORDERING CLINICIAN: NAKUL SOSA FINDINGS: Right knee weightbearing four views. Mild medial joint space narrowing moderate knee effusion no signs of fracture dislocation or other bony abnormality Signed by: Nakul Sosa 05/23/2024 4:41 PM Dictation workstation: [id number] Procedures [none ] Assessment: Loose left total [...] grammatical areas may persist related to the [employer] software Nakul Sosa MD Senior Attending Physician [facility] [place] documented in this encounter [facility] Work Phone: 04-28-2024 History of Present illness Narrative Images from the original note were not included. HISTORY OF PRESENT ILLNESS: EST PT Porter Maravilla is an 38 y.o. @ male. (EST PT) RECHECK (L) KNEE - S/P ECONOMY HINGED 02/25/24 S/P (L) TKA 06/05/22 - DR GREGORIO XRAYS, 02/24/24 IN EPIC BONE SCAN 07/12/23 [facility] (IN MEDIA) US (L) KNEE, NON-VAS 01/20/23 @ [facility] (L) LE EMG 01/13/[address] [facility] CT LUMBAR 01/23/[address] [facility] LABS 10/22/22 @ [facility] (SED RATE / CRP / CBC) S/P MDP 08/04/22, 07/12/23 PREVIOUS PHYSICAL THERAPY @ [facility] ; 06/05 - 08/05 PREVIOUS PHYSICAL THERAPY @ [facility] ; POST-OP PREVIOUS PAIN MGMT - DR GARRIDO ; S/P (L) KNEE GENICULAR NERVE BLOCK 02/04/23 [facility] CONSULT (SHEA PLASENCIA B2B ACCOUNT EXECUTIVE) ; LAST APPT 02/22/23 (TELEMED) - RECOMMENDED [...] At Risk (08/16/2023) [facility] from [facility] AUDIT-C Frequency of Alcohol Consumption: Never Average [...] today we are recommending that patient contact [facility] orthopedic dept for a 3rd opinion on his b/l knees / lower back. Patient is understanding and agreeable that if he is feeling like hurting himself / others to proceed to nearest ER. We have discussed his HEP and restrictions and will see him back on a prn basis. Jelena Gregorio D.O. documented in this encounter [facility] 08-19-2023 Note Orthopedic Surgery Subjective Pain of the Left Knee (L TKA needs revision , L TKA done 1 year ago, c/o l knee ana m and gives out ) 08/19/2023 Patient is presenting today for evaluation of Left knee pain , patient is S/P Left TKA by Dr. Gregroio in [place] 06/05/2023 patient with history of Multiple arthroscopic surgeries before his knee replacement, patient with severe Left knee pain , failed multiple treatment including pain management pain blocks, patient has been seeing Spine surgery in [facility] and neurology as well , he has significant pain interfering with his ability to walk. Patient is waking with antalgic gait no waling aids, patient with history of Spine surgery , history of Neuritis, Myelopathy and spondylosis , he is presenting today for evaluation his knee , he stated that he was told that he needs surgery by the [facility] but they wouldn't do it. Patient described [...] had periprosthetic joint infection ruled out by [facility] via inflammatory markers. He is seen here for consideration of another opinion regarding his left knee. States his pain and dysfunction is debilitating. Review of Systems unremarkable aside from what is noted in HPI Patient History Past Surgical History: Procedure Laterality Date KNEE SURGERY Left Past Medical History: Diagnosis Date Dislocated elbow Epilepsy ([facility]) Objective General: There is no height [...] to total left knee replacement, initial encounter ([facility]) - I reviewed the previous notes from [facility]. Discussed with the patient I discussed with [...] to his valgus alignment. Jurgen Brambila MD [facility] 08-16-2023 Note Attestation signed by Damaris Perez [...] had periprosthetic joint infection ruled out by [facility] via inflammatory markers. He is seen here for consideration of another opinion regarding his left knee. States his pain and dysfunction is debilitating. Review of Systems unremarkable aside from what is noted in HPI Patient History Past Surgical History: Procedure Laterality Date KNEE SURGERY Left Past Medical History: Diagnosis Date Dislocated elbow Epilepsy ([facility]) Objective General: There is no height [...] were reviewed with the patient. Assessment/Plan Porter Marvailla is a 38 y.o. year old male with Pain due to total left knee replacement, initial encounter ([facility]) Status post total left knee replacement [...] be an additional personal documentation from me. [facility] 08-02-2023 Note HNO ID: [id number] Author: Pooja Cordon MD Service: ? Author Type: Physician Type: Progress Notes Filed: 08/09/2023 9:35 PM Note Text: [facility] Date 08/02/23 I have communicated my name and active licensure. The patient's identity and physical location were verified at the time of this visit. Either the patient or their legal real estate representative has been informed of the risks and benefits of -- and alternatives to -- treatment through a remote evaluation and consents to proceed with the evaluation remotely. This 38 year old living with significant other disabled x 2019 years ( for depression and pain) lives with significant other and son in [facility]. The patient seen for psychiatric diagnostic evaluation. He was referred by Fuad Shankar [facility] [id number]. This consultation was shared with the referral source via the [facility] electronic medical record. 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 That he does grocery [...] getting meds from Duran Sy CNP in [place] ( been seeing her x 2 yrs) He is following up in [facility]. Therapist is Elizabeth Reilly. He sees her 2 times a week. Reports that he has taken Cymbalta and gabapentin ( reports that he was on gabapentin x 3 months , cymbalta x 4 month, ? Did not help) Spine Red Flag Porter (more content not included)... [facility] 08-02-2023 History of Present illness Narrative [facility] Date 08/02/23 I have communicated my name and active licensure. The patient's identity and physical location were verified at the time of this visit. Either the patient or their legal real estate representative has been informed of the risks and benefits of -- and alternatives to -- treatment through a remote evaluation and consents to proceed with the evaluation remotely. This 38 year old living with significant other disabled x 2019 years ( for depression and pain) lives with significant other and son in [place] [facility] [facility]. The patient seen for psychiatric diagnostic evaluation. He was referred by Fuad Shankar [facility] [id number]. This consultation was shared with the referral source via the [facility] electronic medical record. 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 That he does grocery [...] with Bipolar 1 and anxiety. That in 2019 he had thoughts to hurt himself so [...] getting meds from Duran Sy CNP in [place] ( been seeing her x 2 yrs) He is following up in [facility]. Therapist is Elizabeth Reilly. [...] The patient was reared by mother in [place]. Moved to [place] 20 yrs ago. Don't know dad. He [...] which included preparing to see the patient, knuq-fa-[id number] patient care, completing clinical documentation, obtaining and/or [...] phone or MyChart. documented in this encounter [facility] 07-02-2023 Note HNO ID: [id number] Author: Nelda Sheriff APRN.CNP Service: ? Author Type: Nurse Practitioner Type: Progress Notes Filed: 07/02/2023 12:25 PM Note Text: This is an Express Care eVisit note for Porter Maravilla eVisit/Questionnaire reviewed The chief complaint for the visit - Patient presents with: Back Pain Saw Ortho today Recommendations/Treatment plan - See My Chart Message to patient Time spent <1 minute Nelda Sheriff APRN.CNP [facility] 07-02-2023 History of Present illness Narrative This is an Express [facility] eVisit note for Porter Maravilla eVisit/Questionnaire reviewed The chief complaint for the visit - Patient presents with: Back Pain Saw Ortho today Recommendations/Treatment plan - See My Chart Message to patient Time spent <1 minute Nelda Sheriff APRN.CNP documented in this encounter [facility] 06-28-2023 Note HNO ID: [id number] Author: Fuad Pierce PA-C Service: ? Author Type: Physician Office Specialist Type: Progress Notes Filed: 06/28/2023 10:11 PM Note Text: [facility] [place] June 28, 2023 Porter Maravilla is a 37 year old partnered male, not working, only volunteering, who lives with significant other and son (12 yoa) in [place], [place]. He was referred by Shea Plasencia [address] [place] [address]. Consultation requested by Luis Angel for an [...] Hx of left total knee replacement at [facility] by dr Smyth May 2022 - due [...] n/a CHF: denies Uncontrolled HTN: denies Recent MN: denies Arrythmias: denies Afib: denies Hyperthyroid: denies Aortic Stenosis: denies Liver Failure: denies Increased ICP: denies Average pain over the last 7 days: 8-10 Previous pain treatments: physical therapy, medications, TENS, [...] He has not used tobacco since 2019. @[facility]@ denies current and past significant alcohol use Drug use: There is no history of recreational substance use. . Family History FAMILY HISTORY Problem Relation Age of (more content not included)... [facility] 06-28-2023 History of Present illness Narrative [facility] [place] June 28, 2023 Porter Maravilla is a 37 year old partnered male, not working, only volunteering, who lives with significant other and son (12 yoa) in [place], [place]. He was referred by Shea Plasencia [address] [place] [address]. Consultation requested by Luis Angel for an [...] Hx of left total knee replacement at [facility] by dr Smyth May 2022 - due [...] n/a CHF: denies Uncontrolled HTN: denies Recent MN: denies Arrythmias: denies Afib: denies Hyperthyroid: denies [...] He has not used tobacco since 2019. @[facility]@ denies current and past significant alcohol use [...] which included preparing to see the patient, gwhk-sx-foaz patient care, completing clinical documentation, obtaining and/or reviewing separately obtained history, performing a medically appropriate examination, counseling and educating the patient/family/caregiver, and ordering medications, tests, or procedures. Important Patient Information: 1. To schedule Pain Recovery appointments or post-injection office visits, please call: [phone] 2. The nursing staff and medical assistants are an integral part of your pain recovery team and will be handling your phone calls and inquiries. 3. Your study results and treatment plan will be discussed during a follow-up appointment. If you do not have a follow-up appointment and wish to discuss any issues directly with me, please call: [phone] to set-up an appointment. 4. [employer] is best used for refill requests or yes or no questions. Anything more complicated will likely require a follow-up appointment that you can schedule by [phone]. 5. It is the practice of the [...] is an opening. documented in this encounter [facility] 06-11-2023 Note HNO ID: [id number] Author: Shea Plasencia APRN.[employer]IP[employer] Service: ? Author Type: Nurse Practitioner Type: Progress Notes Filed: 06/11/2023 3:53 PM Note Text: SPINE SURGERY ESTABLISHED VISIT This is a virtual visit using [employer] Video Call. It required patient-provider interaction for the medical decision making as documented below. I have communicated my name and active licensure. The patient's identity and physical location were verified at the time of this visit. Either the patient or their legal real estate representative has been informed of the risks [...] which included preparing to see the patient, fmys-uf-tfbj patient care, completing clinical documentation, obtaining and/or reviewing separately obtained hi (more content not included)... [facility] 06-09-2023 Note HNO ID: [id number] Author: Kelle Gordon, DO Service: ? Author Type: Physician Type: Progress Notes Filed: 06/09/2023 2:53 PM Note Text: This is a virtual visit using [employer] video visit. It required patient-provider interaction for the medical decision making as documented below. I have communicated my name and active licensure. The patient's identity and physical location were verified at the time of this visit. Either the patient or their legal real estate representative has been informed of the risks [...] at bedtime. QUEtiapine (more content not included)... [facility] 06-04-2023 Evaluation note Encounter Date Diagnosis Assessment [...] (ICD-10 - Z96.652) Follow up as needed [employer] Other 09-19-2023 Miscellaneous Notes* Telephone Encounter - Mojgan Virgen RN - 06/01/2023 4:58 PM EDT VV offered to patient via . Awaiting reply. [place] Leach, RN Building Attendant June 01, 2023 4:58 PM * Telephone Encounter - Mojgan Virgen RN - 06/01/2023 2:22 PM EDT Visit held on 06/09/23 @ 220pm on Dr. Gordon's main campus schedule, if needed. Inquiry sent to for review. [place] Leach, RN Building Attendant June 01, 2023 2:22 PM * Telephone Encounter - Martha Brown - 06/01/2023 1:33 PM EDT Patient is calling in about info below [facility] Miscellaneous Notes* Telephone Encounter - Toribio Hammond [...] management. Toribio Hammond PA-C [facility] NoteHNO ID: [id number] Author: Shea Plasencia APRN.[employer]IP[employer] HAND Service: ? Author Type: Nurse Practitioner Type: [...] visit. Either the patient or their legal real estate representative has been informed of the risks [...] half the days 3 (more content not included)...[facility] History of Present illness Narrative* Shea Plasencia APRN.SHIPPING HAND - 04/28/2023 1:00 PM EDT SPINE SURGERY ESTABLISHED VISIT This is a virtual visit using Audio only. It required patient-provider interaction for the medical decision making as documented below. I have communicated my name and active licensure. The patient's identity and physical location wereverified at the time of this visit. Either the patient or their legal real estate representative has been informed of the risks and benefits of -- and alternatives to -- treatment through a remote evaluation andconsents to proceed with the evaluation remotely. Patient unable to log into my chart stated prompts were not letting him, DATE OF SERVICE: 04/28/2023 DATE OF LAST VISIT: 01/13/2023 SUBJECTIVE: HPI:Porter Maravilal is a 37 year old male presenting [...] which included preparing to see the patient, [id number] patient care, completing clinical documentation, obtaining and/or reviewing separately obtained history, performing a medically appropriate examination, counseling and educating the pat ient/family/caregiver, independently interpreting results (not separately reported), and communicating results to the patient/family/caregiver. SIGNATURE: Shea Plasencia APRN.CNP PATIENT NAME: Porter Maravilla DATE: April 28, 2023 TIME: 1:10 PM PAGER: documented in this encounterSam[facility]08-09-2023 NoteHNO ID: [id number] Author: Viviana Macedo MD Service: ? Author Type: Physician Type: Progress Notes Filed: 04/26/2023 3:15 PM Note Text: Chief Complaint: No chief complaint on file. HPI: Patient is 37 year old male here for second opinion on left knee 37-year-old male presents for evaluation of left lower extremity pain status post left total knee replacement on [facility] by Dr. Jelena Smyth May 2022. Patient claims since the surgery the knee has been very painful ambulates with a valgus thrust and with every step it is painful. He is also status post back fusion done in 2019. He has been evaluated by pain management. He was worked up extensively in the [place] area had labs done back x-rays CT [...] to be well balanced (more content not included)...[facility] 04-21-2023 History of Present illness Narrative* Viviana Macedo MD - 04/21/2023 9:32 PM EDT Chief Complaint: No chief complaint on file. HPI: Patient is 37 year old male here for second opinion on left knee 37-year-old male presents for evaluation of left lower extremity pain status post left total knee replacement on [facility] by Dr. Jelena Smyth May 2022. Patient claims since the surgery the knee has been very painful ambulates with a valgus thrust and with every step it is painful.He is also status post back fusion done in 2019. He has been evaluated by pain management. He was worked up extensively in the [place] area had labs done back x-rays CT [...] Past Histories independently gathered by the clinical computer network support specialist and the remaining scribed note accurately describes my personal service to the patient. The patient is seen and examined by Dr. Macedo and the following reflects his/her service. Scribed by Lesley Melendez RN documented in this encounterSamaritan [facility] Center07-11-2023 NoteHNO ID: [id number] Author: Toribio Hammond PA-C Service: ? Author Type: Physician Office Specialist Type: Progress Notes Filed: 03/23/2023 8:58 AM Note Text: Spoke to patient concerning is painful left total knee discussed treatment options of try some tramadol he said he is allergic to tramadol. He is presently taking Celebrex and gabapentin. I told him to get an appointment to see one of our revision surgeons to discuss other treatment options. NATALIIA Garcia-[facility]07-10-2023 Miscellaneous Notes* Telephone Encounter - Cecily Rivera - 03/22/2023 4:08 PM EDT Demographic page, TENS order and office visit notes faxed to [facility]. Cecily Rivera documented in this encounterSamaritan [facility] Center07-06-2023 NoteHNO ID: [id number] Author: Destiney Garcia MD Service: ? Author Type: Physician Type: Progress Notes Filed: 03/22/2023 10:58 AM Note Text: [facility] Office Visit Porter Maravilla is referred by NATALIIA Ward (spine). Unaccompanied Room: 20 Chief Complaint: both knees L>>R HISTORY OF PRESENT ILLNESS Mr. Porter Maravilla presents to [facility] for the evaluation [...] told to get all his records from [facility] CT scan on a disc along with [...] kg (240 lb) (more content not included)... [facility]07-06-2023 History of Present illness Narrative* Destiney Garcia MD - 03/18/2023 3:40 PM EDT [facility] Office Visit Porter Maravilla is referred by NATALIIA Ward (spine). Unaccompanied Room: 20 Chief Complaint: both knees L>>R HISTORY OF PRESENT ILLNESS Mr. Porter Maravilla presents to [facility] for the evaluation [...] told to get all his records from [facility] CT scanon a disc along with the [...] tried TENS unit, so [facility]. [...] - order placed and pamphlet provided FTFT: [phone] Shared decision making utilized to continue current [...] of your PCP/referring physician. 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 yes documented in this encounterSamaritan [facility] Center07-03-2023 NoteHNO ID: [id number] Author: Toribio Hammond PA-C Service: ? Author Type: Physician Office Specialist Type: Progress Notes Filed: 03/15/2023 2:41 PM Note Text: Discussed results of the lab results ordered due to location painful knee left total knee placement. CBC ESR and CRP were normal. On x-ray there is lateral tracking of the patella surgery brace was ordered and he will pick that up from x-rays in clinic facility casted. NATALIIA Garcia-[facility]07-03-2023 History of Present illness Narrative* Toribio Hammond [...] casted. Toribio Hammond PA-C documented in this encounterSamaritan North [facility] Center07-03-2023 Miscellaneous Notes* Telephone Encounter - Toribio Hammond PA-C - 03/15/2023 2:31 PM EDT This check on the patient no answer on his phone Labs are normal. Toribio Hammond PA-C documented in this encounterSamaritan North Health Center06-23-2023 NoteHNO ID: [id number] Author: Toribio Hammond PA-C Service: ? Author Type: Physician Office Specialist Type: Progress Notes Filed: 03/05/2023 12:29 PM [...] status post left total knee replacement on [facility] by Dr. Jelena Smyth May 2022. Patient claims since the surgery the knee has been very painful ambulates with a valgus thrust and with every step it is painful. He is also status post back fusion done in 2019 and has not followed with recovered from that also. He was worked up extensively in the [place] area had labs done back x-rays CT [...] total knee replacement surgery; Date: 2021 at [facility] [place]. Review of Systems Constitutional: Negative. HENT: Negative. [...] joint line, lateral join (more content not included)...[facility]06-23-2023 Instructions* Patient Instructions* Toribio Hammond PA-C - 03/05/2023 10:57 AM EDT Patient was told to get the left knee operative note from [facility] also told to get the CAT scan that was done of his lumbar spine and other lab works and examination done from [place] and bring with him to the next appointment. This case will be discussed with one of her previous joint revision surgeon. Patient was sent to pain management for chronic lower back pain and left knee pain status post lefttotal knee replacement May 15, 2022 and back surgery lower lumbar fusion 2019. documented in this encounterSamaritan North Health Center06-23-2023 History of Present illness Narrative* Toribio Hammond [...] status post left total knee replacement on [facility] by Dr. Jelena Smyth May 2022. Patient claims since the surgery the knee has been very painful ambulates with a valgus thrust and with every step it is painful.He is also status post back fusion done in 2019 and has not followed with recovered from that also.He was worked up extensively in the [place] area had labs done back x-rays CT [...] total knee replacement surgery; Date: 2021 at [facility] [place]. Review of Systems Constitutional: Negative. HENT: Negative. Respiratory: Negative. Cardiovascular: Negative. Gastrointestinal: Negative. Endocrine: Negative. Skin: Negative. Neurological: Negative. Hematological: Negative. Musculoskeletal: Positive for joint swelling. There is no problem list on file for this patient. PAST MEDICAL HISTORY Diagnosis Date Arachnoid cyst Bipolar disorder ([facility]) Depression Epilepsy ([facility]) History of high blood pressure Migraines [...] to total left knee replacement, initial encounter ([facility]) (primary encounter diagnosis) Plan: CBC + [...] to total left knee replacement, initial encounter ([facility]) (primary encounter diagnosis) (M25.462) Effusion of [...] told to get all his records from [facility] CT scanon a disc along with the [...] 2023 TIME: 10:27 AM documented in this encounterSamaritan [facility] Center06-12-2023 NoteHNO ID: [id number] Author: Shea Plasencia APRN.SHIPPING HAND Service: ? Author Type: Nurse Practitioner Type: Progress Notes Filed: 02/22/2023 2:04 PM Note Text: SPINE SURGERY ESTABLISHED VIRTUAL VISIT This is a virtual visit using [employer] video visit. It required patient-provider interaction for the medical decision making as documented below. I have communicated my name and active licensure. The patient's identity and physical location were verified at the time of this visit. Either the patient or their legal real estate representative has been informed of the risks [...] a second opinion with ortho here at [facility] at end of February. Also has appointment [...] pain (primary encounter (more content not included)... [facility]06-06-2023 Miscellaneous Notes* Telephone Encounter - Mojgan Virgen [...] yet scheduled Update shared with . Mojgan Virgen MSN, RN Building Attendant February 16, 2023 3:30 PM documented in this encounterSamaritan North Health Center06-01-2023 Evaluation note* Encounter Date Diagnosis Assessment Notes [...] is unremarkable. Continue with current treatment plan [employer] Other 05-26-2023 NoteHNO ID: [id number] Author: Kelle Gordon, DO Service: ? Author [...] HPI/Conservative Treatment Section (NSAIDs, PT, HEP and/or Farm Supervisor within last 3-6 months) . For possible Lumbar Radiculopathy due to presence of red flags detailed in HPI, interventional planning, surgical planning, progressive leg weakness, and leg pain unresponsive to medical management. Prior Therapy: Multiple rounds of physical therapy for his k (more content not included)... [facility]05-03-2023 NoteHNO ID: [id number] Author: Shea Plasencia APRN.SHIPPING HAND Service: ? Author Type: Nurse Practitioner Type: [...] knee etiology, pending spine (more content not included)...[facility]05-03-2023 History of Present illness Narrative* Shea Plasencia APRN.SHIPPING HAND - 01/13/2023 9:10 PM EDT SPINE SURGERY [...] HPI/Conservative Treatment Section (NSAIDs, PT, HEP and/or Farm Supervisor within last 3-6 months) . For possible Lumbar Radiculopathy due to presence of red flags detailed in HPI, interventional planning, surgical planning, progressive leg weakness, and leg pain unresponsive to medical management. I spent a total of 40 minutes on the date of the service which included preparing to see the patient, [id number] patient care, completing clinical documentation, obtaining and/or reviewing separately obtained history, performing a medically appropriate examination, counseling and educating the pat ient/family/caregiver, independently interpreting results (not separately reported), and communicating results to the patient/family/caregiver. SIGNATURE: Shea Plasencia APRN.CNP PATIENT NAME: Porter Maravilla DATE: January 13, 2023 TIME: 9:10 PM PAGER: documented in this encounterSamaritan North Health Center05-03-2023 NoteHNO ID: [id number] Author: RT Ronn(Kathie) Service: Radiology Author Type: Technologist Type: Progress [...] PERIPHERAL IV DATA: Not applicable SIGNED BY: VERENICE Brody) January 13, 2023 4:23 [facility]05-03-2023 NoteHNO ID: [id number] Author: Sahra Oliva, DO Service: ? Author [...] Care Visit completed when applicable. Kathie Lafleur [place]05-03-2023 History of Present illness Narrative* Sahra Oliva [...] applicable. Kathie Lafleur DO documented in this encounterSamaritan North [facility] Center04-26-2023 NoteHNO ID: [id number] Author: Shea Plasencia APRN.SHIPPING HAND Service: ? Author Type: Nurse Practitioner Type: [...] of life. 50th pe (more content not included)...[facility]04-14-2023 NoteHNO ID: [id number] Author: Bernadine Kincaid PA-C Service: ? Author Type: Physician Office Specialist Type: Progress Notes Filed: 12/25/2022 5:07 PM Note Text: Per Triage: Porter Maravilla is a 37 year old male that requests evaluation of spine. Per review, they have symptoms of lower back pain, left leg pain. Numbness big toes bilaterally. Difficulty walking, weakness Request: 1st available Referring provider: Jelena Gregorio Patient out of state: no 2nd opinion: no Prior spine surgery: yes 2020 [facility] Address: [address] [place], [place] [id number] CMT: PT Injections IBU Studies (Reports unless [...] they can be reviewed during the appt [facility] History of Present illness Narrative* Bernadine Kincaid [...] opinion: no Prior spine surgery: yes 2020 [facility] Address: [address] [place], [place] [id number] CMT: PT Injections IBU Studies (Reports unless [...] the appt Bernadine Kincaid PA-C * Donny Neri Amintajammie - 12/25/2022 1:57 PM EDT Patient name: Porter Maravilla Are you being referred by a Center for Spine Health Provider or Pain Management Provider at [facility]? No If answer is YES please schedule [...] the facility where the MRI/CT/myelogram was completed: [facility] Address: [address] [place] [address] MRI/CT/myelogram viewable in Epic: No If not, please provide [phone] to fax in imaging reports for review. [...] therapy was completed PT MACIE Gallagher Address: [address] [place] [address] Injections [facility] Address: [address] [place] [address] Have you tried any other kinds of [...] of where the surgery was completed: 2020 [facility] Address: [address] [place] [id number] Additional Comments documented in this encounterSamaritan North Health Center04-14-2023 NoteHNO ID: [id number] Author: Donny Downs Service: ? Author Type: ? Type: Progress Notes Filed: 12/25/2022 5:07 PM Note Text: Patient name: Porter Maravilla Are you being referred by a [place] for Spine Health Provider or Pain Management Provider at [facility]? No If answer is YES please schedule [...] the facility where the MRI/CT/myelogram was completed: [facility] Address: [address] [id number] MRI/CT/myelogram viewable in Epic: No If not, please provide [phone] to fax in imaging reports for review. [...] therapy was completed PT JUANS Elliott Address: [address] [place] [address] Injections [facility] Address: [address] [place] [address] Have you tried any other kinds of [...] of where the surgery was completed: 2020 [facility] Address: [facility] [address] [place] [id number] Additional Comments [facility]03-30-2023 Evaluation note* Encounter Date Diagnosis Assessment Notes [...] - G89.29) Continue with current treatment plan [employer] Other 03-08-2023 Evaluation note* Encounter Date Diagnosis [...] - G89.29) Continue with current treatment plan [employer] Other 02-09-2023 Evaluation note* Encounter Date Diagnosis [...] M47.817) Oct, Sacroiliac inflammation (ICD-10 - M46.1) [employer] Other 06-29-2022 Evaluation note* Encounter Date Diagnosis [...] current treatment plan, follow up after procedure. [employer] Other 06-06-2022 Evaluation note* Encounter Date Diagnosis [...] current treatment plan, follow up after procedure. [employer] Other 05-18-2022 Evaluation note* Encounter Date Diagnosis [...] injections January, Lumbosacral spondylosis (ICD-10 - M47.817) [employer] Other 03-16-2022 Evaluation note* Encounter Date Diagnosis [...] determination if we should order an MRI. [employer] Other 11-17-2021 Evaluation note* Encounter Date Diagnosis [...] and contact him once results are available. [employer] Other evaluation + Plan note No data available for this section [facility] [place] Evaluation noteNo InformationNort [facility] Other evalwnucfs noteNo assessment information available [facility] Work Phone: Evaluation note* Diagnosis S/P lumbar fusion- Primary Arthrodesis status Lumbar radiculopathy Thoracic or lumbosacral neuritis or radiculitis, unspecified documented in this encounter [facility]* Diagnosis Weakness generalized- Primary Other malaise and fatigue Radiculopathy of lumbar region Thoracic or lumbosacral neuritis or radiculitis, unspecified S/P lumbar fusion Arthrodesis status Compression of common peroneal nerve of left lower extremity documented in this encounter [facility]* Diagnosis Spondylosis with myelopathy, thoracic region- Primary Gait instability Abnormality of gait Radiculopathy of lumbar region Thoracic or lumbosacral neuritis or radiculitis, unspecified Effusion of left knee Effusion of lower leg joint Tear of medial meniscus of right knee, current, unspecified tear type, initial encounter [facility]* Diagnosis Left leg pain- Primary Pain in limb Chronic pain of left knee Pain in joint, lower leg Myofascial pain Mylagia and myositis, unspecified Spasm of muscle documented [facility]* Diagnosis Pain due to total left knee replacement, initial encounter ([facility])- Primary Effusion of left knee Effusion of lower leg joint Tear of medial meniscus of right knee, current, unspecified tear type, initial encounter documented [facility]* Diagnosis Chronic pain of left knee- Primary Pain in joint, lower leg documented [facility]* Diagnosis Neuralgia and neuritis- Primary Neuralgia, [...] Index 30.0-30.9, adult documented in this encounter [facility]* Diagnosis Status post total left knee replacement- Primary documented [facility]* Diagnosis Left leg pain- Primary Pain in limb Chronic pain of left knee Pain in joint, lower leg Spasm of muscle Gait instability Abnormality of gait Suicidal ideation documented [facility] this [facility]* Diagnosis History of left knee replacement- Primary Chronic pain of left knee Pain in joint, lower leg Bipolar 1 disorder (HCC) Bipolar I disorder, most recent episode (or current) unspecified documented [facility] this [facility]* Diagnosis Treatment not available- Primary Procedure not carried out for other reasons documented [facility] this [facility]* Diagnosis Chronic pain syndrome- Primary Pain disorder associated with psychological factors and medical condition Other pain disorders related to psychological factors RESHMA (generalized anxiety disorder) Generalized anxiety disorder Chronic use of benzodiazepine for therapeutic purpose MDD (major depressive disorder), recurrent episode, moderate (HCC) Major depressive disorder, recurrent episode, moderate documented in this encounter [facility]* Diagnosis Left knee pain, unspecified chronicity- Primary documented in this encounter [facility] Work Phone: Evaluation note* Diagnosis Left knee pain, unspecified chronicity Right knee pain, unspecified chronicity documented in this encounter [facility] Work Phone: Evaluation note* Diagnosis Left knee pain, unspecified chronicity- Primary Right knee pain, unspecified chronicity Left knee pain, unspecified chronicity Right knee pain, unspecified chronicity documented in this encounter [facility] Work Phone: Evaluation note* Diagnosis Acute [...] joint, initial encounter documented in this encounter [facility] Work Phone: Evaluation note* Diagnosis 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 Right knee pain, unspecified chronicity Mechanical loosening of internal left knee prosthetic joint, initial encounter documented in this encounter [facility] Work Phone: Evaluation note* Diagnosis 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 Primary osteoarthritis of right knee- Primary Left knee pain, unspecified chronicity Right knee pain, unspecified chronicity Right knee pain, unspecified chronicity Left knee pain, unspecified chronicity Mechanical loosening of internal left knee prosthetic joint, initial encounter documented in this encounter [facility] Work Phone: History general Narrative - Reported* Type Description Date Medical History DEPRESSION Medical History BIPOLAR Medical History 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 Surgical History TONSILS Surgical History ORAL SURGERY/ WISDOM TEETH Surgical History GALLBLADDER Surgical History left knee scope with medial men isectomy 02/2020 Surgical History ALIF-[facility] Hospitalization History SEE ABOVE SURGERY Hospitalization History [employer] Other History general Narrative - Reported* Type [...] Hospitalization History SEE ABOVE SURGERY Hospitalization History [employer] Other Hospital Discharge instructions No data available for this section [facility] [employer] Progress note No data available for this section [facility] [employer] Reason for visit NarrativeINCREASE BACK PAIN DISCUSS PROCEDURENort [facility] Other Reason for visit Narrative* Neuropsych Testing (Routine) - Closed Specialty Diagnoses / Procedures Referred By Contact Referred To Contact Neuropsychology / Neurology Diagnoses Attention and concentration deficit Procedures NE NEUROPSYCHOLOGICAL TST EVAL PHYS/QHP EA ADDL HR Duran Sy, ZECHARIAH [address] [place] [address] Phone: tel:[phone] fax:[phone] Leoncio Rosenberg, PhD [address] [place] [id number] Phone: tel: fax:[phone] Referral ID Status Reason Start Date Expiration Date V isits Requested Visits Authorized [id number] Closed Specialty Services Required 10/04/2024 04/02/2025 1 1 [facility] Narrative* Imaging (Routine) - Authorized Specialty Diagnoses / Procedures Referred By Contac t Referred To Contact Radiology Diagnoses Left knee pain, unspecified chronicity Procedures XR knee left 3 views Nakul Sosa MD [address] [facility], [address] [place] [address] Phone: tel: fax: Referral ID Status Reason Start Date Expiration Date Visits Requested Visits Authorized [id number] Authorized Perform Procedure 01/23/2025 01/23/2026 1 1 [facility] Work Phone: Reason for visit Narrative* Imaging (Routine) - Authorized Specialty Diagnoses / Procedures Referred By Contac t Referred To Contact Radiology Diagnoses Right knee pain, unspecified chronicity Procedures XR knee right 4+ views Nakul Sosa MD [address] [facility], [address] [place] [address] Phone: tel: fax: Referral ID Status Reason Start Date Expiration Date Visits Requested Visits Authorized [id number] Authorized Perform Procedure 01/23/2025 01/23/2026 1 1 [facility] Work Phone: Summary Purpose Family History No Family History Records Found Relationship Condition Age at Onset Recorded Date/T marilee grandparent Malignant neoplasm of prostate Unknown Diabetes mellitus Unknown Not Specified Unknown family medical history Unknown father Unknown family medical history Unknown Advance Directives No Advanced Directives Records Found Advance Directive Response Recorded Date/ Time Advance Directives No December 22, 019 1:35pm Advance Directive Response Recorded Date/ Time Advance Directives No December 22, 019 12:35pm Reason for Referral Specialty Diagnoses / Procedures Referred By Contac t Referred To Contact Radiology Diagnoses Right knee pain, unspecified chronicity Procedures XR knee right 4+ views Nakul Sosa MD [address] [facility], [address] [place] [address] Referral ID Status Reason Start Date Expiration Date Visits Requested Visits Authorized [id number] Authorized Perform Procedure 05/23/2024 05/23/2025 1 1 Specialty Diagnoses / Procedures Referred By Contac t Referred To Contact Radiology Diagnoses Left knee pain, unspecified chronicity Procedures XR knee left 3 views Nakul Sosa MD [address] [facility], [address] [place] [address] Referral ID Status Reason Start Date Expiration Date Visits Requested Visits Authorized [id number] Authorized Perform Procedure 05/23/2024 05/23/2025 1 1 Specialty Diagnoses / Procedures Referred By Contac t Referred To [facility] Diagnoses History of left knee replacement Chronic pain of left knee Procedures PROVIDER ORDERED FOLLOW UP OFFICE/OUTPATIENT [facility] 60-74 MINUTES Fuad Pierce PA-C [address] [place] [address] Referral ID Status Reason Start Date Expiration Date Visits Requested Visits Authorized [id number] Authorized PCP Requested Referral 3 06/27/2024 1 1 Specialty Diagnoses / Procedures Referred By Contac t Referred To [facility] [place] Diagnoses History of left knee replacement Chronic pain of left knee Bipolar 1 disorder (HCC) Procedures CONSULT TO [facility] OFFICE/OUTPATIENT [facility] 60-74 MINUTES Fuad Pierce PA-C [address] [place] [address] Referral ID Status Reason Start Date Expiration Date Visits Requested Visits Authorized [id number] Pending Review PCP Requested Referral 3 06/27/2024 1 1 Specialty Diagnoses / Procedures Referred By Contac t Referred To [facility] Diagnoses History of left knee replacement Chronic pain of left knee Procedures CONSULT TO [facility]) OFFICE/OUTPATIENT [facility] 60-74 MINUTES Fuad Pierce PA-C [address] [id number] Referral ID Status Reason Start Date Expiration Date Visits Requested Visits Authorized [id number] Pending Review PCP Requested Referral 3 06/27/2024 1 1 Specialty Diagnoses / Procedures Referred By Contac t Referred To [facility] Diagnoses Left leg pain Chronic pain of left knee Spasm of muscle Gait instability Procedures CONSULT TO [facility] ([facility] PAIN) OFFICE/OUTPATIENT [facility] 60-74 MINUTES Shea Plasencia APRN.SHIPPING HAND [address] [place] [address] Referral ID Status Reason Start Date Expiration Date Visits Requested Visits Authorized [id number] Pending Review PCP Requested Referral 04/29/2023 04/27/2024 1 1 Specialty Diagnoses / Procedures Referred By Contac t Referred To Contact Pain Management Diagnoses Effusion of left knee Tear of medial meniscus of right knee, current, unspecified tear type, initial encounter Procedures CONSULT TO PAIN MGT OFFICE/OUTPATIENT [facility] 60-74 MINUTES Toribio Hammond PA-C [address] [place] [address] Referral ID Status Reason Start Date Expiration Date Visits Requested Visits Authorized [id number] Authorized PCP Requested Referral 03/05/2023 03/04/2024 1 1 Specialty Diagnoses / Procedures Referred By Contac t Referred To Contact Pain Management Diagnoses Left leg pain Myofascial pain Spasm of muscle Procedures CONSULT TO PAIN MGT OFFICE/OUTPATIENT [facility] 60-74 MINUTES Shea Plasencia, SUSU.SHIPPING HAND [address] [place] [address] Referral ID Status Reason Start Date Expiration Date Visits Requested Visits Authorized [id number] Authorized PCP Requested Referral 03/02/2023 03/01/2024 1 1 Specialty Diagnoses / Procedures Referred By Contac t Referred To Contact MR IMAGING Diagnoses Radiculopathy of lumbar region Gait instability Spondylosis with myelopathy, thoracic region Procedures MRI THORACIC SPINE WO IVCON MRI SPINAL CANAL THORACIC W/O CONTRAST MATRL Shea Plasencia, VULNERABILITY RESEARCHER.SHIPPING HAND [address] [id number] Mr Imaging Referral ID Status Reason Start Date Expiration Date Visits Requested Visits Authorized [id number] Pending Review Auto-Generat ed Referral 01/13/2023 02/12/2024 1 1 Specialty Diagnoses / Procedures Referred By Contac t Referred To Contact Orthopedics Diagnoses Effusion of left knee Tear of medial meniscus of right knee, current, unspecified tear type, initial encounter Procedures CONSULT PANEL TO ORTHOPAEDICS OFFICE/OUTPATIENT [facility] 60-74 MINUTES Shea Plasencia, VULNERABILITY RESEARCHER.SHIPPING HAND [address] [id number] Referral ID Status Reason Start Date Expiration Date Visits Requested Visits Authorized [id number] Authorized PCP Requested Referral 01/13/2023 01/13/2024 1 1 Specialty Diagnoses / Procedures Referred By Deb t Referred To Contact XR IMAGING Diagnoses Effusion of left knee Tear of medial meniscus of right knee, current, unspecified tear type, initial encounter Gait instability Procedures XR KNEE GENERAL 4V AP BOTH/PA BOTH/LAT/MERC BILATERAL RADIOLOGIC EXAM KNEE COMPLETE 4/MORE VIEWS Shea Plasencia APRN.SHIPPING HAND [address] [place] [address] Xr Imaging Referral ID Status Reason Start Date Expiration Date V isits Requested Visits Authorized [id number] Closed Auto-Generate d Referral 01/13/2023 02/12/2024 1 1 Reason 11/18/22 @ 1:45pm Evaluate and Treat SI Joint Pain Diagnosis 1 Sacroiliac inflammat ion (M46.1) [facility] Referring Provider First Name Yolande Referring Provider Last Name Ebony Referring Provider Specialty Nurse Pract itioner Referred Organization [facility] Pain Managemen t Referred Provider Trey Garrido Referred Address [address] [address] ,[place], [place],[address] Referred Provider Specialty Pain Medicin e Referral Priority Routine Referral Appointment Date 2022-11-18 General Notes Kirstin Marlin 023 07:21:41 AM >Received today and sending P2P. Patient is already established with Dr. Garrido and was a no show to his last appt Marlin Fulton 11/04/2022 11:56:15 AM >Patient has been scheduled Reason Evaluate and Treat Diagnosis 1 Spondylolisthesis, l umbosacral region (M43.17) Referral Organization [facility] Referring Provider First Name Dario Referring Provider Last Name Lopez Referring Provider Specialty Neurosurger y Referred Organization [facility] Referred Address ,[place], [place],[address] Referred Provider Specialty Physical The rapist Referral [...] and content) DATE CREATED AUTHOR 09/08/2021 [facility] DATE CREATED AUTHOR AUTHOR'S ORGANIZ ATION 01/24/2023 [facility] [place] [facility] DATE CREATED AUTHOR AUTHOR'S ORGANIZ ATION 06/18/2023 [facility] DATE CREATED AUTHOR AUTHOR'S ORGANIZ ATION 08/11/2023 [facility] DATE CREATED AUTHOR AUTHOR'S ORGANIZ ATION 08/31/2023 [facility] DATE CREATED AUTHOR AUTHOR'S ORGANIZ ATION 11/30/2024 [facility] EPIC DATE CREATED AUTHOR AUTHOR'S ORGANIZ ATION 02/09/2025 [facility] DATE CREATED AUTHOR AUTHOR'S ORGANIZ ATION 02/24/2025 [facility] DATE CREATED AUTHOR AUTHOR'S ORGANIZ ATION 03/29/2025 [facility] y[facility] REASON FOR VISIT (unrecogniz ed section and content) Reason Onset Date Comments EMG 01/13/2023 Specialty Diagnoses / Procedures Referred By Deb t Referred To Contact [facility] Diagnoses Radiculopathy of lumbar region S/P lumbar fusion Compression of common peroneal nerve of left lower extremity Procedures EMG(NEURO/NI) NERVE CONDUCTION STUDIES 9-10 STUDIES Shea Plasencia APRN.SHIPPING HAND [address] [place] [address] [facility] [place] [address] [place] [address] Referral ID Status Reason Start Date Expiration Date V isits Requested Visits Authorized [id number] Closed Auto-Generate d Referral 01/06/2023 09/12/2023 1 1 Specialty Diagnoses / Procedures Referred By Contac t Referred To Contact CT IMAGING Diagnoses Radiculopathy of lumbar region Procedures CT LUMBAR SPINE WO IVCON CT LUMBAR SPINE W/O CONTRAST MATERIAL Shea Plasencia APRN.SHIPPING HAND [address] [place] [address] Ct Imaging Referral ID Status Reason Start Date Expiration Date Visits Requested Visits Authorized [id number] Pending Review Auto-Genera mejia Referral Patient Cleared - Admin/Chair man/Directo r advise to proceed 01/05/2023 02/04/2024 1 1 Reason Comments Refill Request Specialty Diagnoses / Procedures Referred By Deb t Referred To Contact Orthopedics Diagnoses Effusion of left knee Tear of medial meniscus of right knee, current, unspecified tear type, initial encounter Procedures CONSULT PANEL TO ORTHOPAEDICS OFFICE/OUTPATIENT [facility] 60-74 MINUTES Shea Plasencia, SUSU.SHIPPING HAND [address] [id number] Referral ID Status Reason Start Date Expiration Date V isits Requested Visits Authorized [id number] Closed PCP Requested Referral 01/13/2023 01/13/2024 1 1 Reason Comments Patient Question Results labs Reason Comments Follow Up Medication Update Specialty Diagnoses / Procedures Referred By Deb t Referred To Contact Pain Management Diagnoses Left leg pain Myofascial pain Spasm of muscle Procedures CONSULT TO PAIN MGT OFFICE/OUTPATIENT [facility] 60-74 MINUTES Shea Plasencia, SUSU.SHIPPING HAND [address] [id number] Referral ID Status Reason Start Date Expiration Date V isits Requested Visits Authorized [id number] Closed PCP Requested Referral 03/02/2023 03/01/2024 1 1 Reason Comments Nurse Triage Call TENS unit informatio n Reason Comments New Reason Comments Follow Up Reason Comments Patient Question Pain Reason Comments New Patient Reason Comments Back Pain Reason Comments Chronic Pain Stress Specialty Diagnoses / Procedures Referred By Contac t Referred To Contact [facility] [place] Diagnoses History of left knee replacement Chronic pain of left knee Bipolar 1 disorder (HCC) Procedures CONSULT TO [facility] ([facility]) OFFICE/OUTPATIENT [facility] 60-74 MINUTES Fuad Pierce PA-C [address] [place] [address] Referral ID Status Reason Start Date Expiration Date Visits Requested Visits Authorized [id number] Pending Review PCP Requested Referral 06/27/2024 1 1 Reason Comments Follow-up Loose TKR Specialty Diagnoses / Procedures Referred By Contac t Referred To Contact Radiology Diagnoses Left knee pain, unspecified chronicity Procedures XR knee left 3 views Nakul Ssoa MD [address] [facility], [address] [place] [address] Referral ID Status Reason Start Date Expiration Date Visits Requested Visits Authorized [id number] Authorized Perform Procedure 05/23/2024 05/23/2025 1 1 [...] Primary Care Provider Active Jelena Gregorio Jr, Attending Provider Active Team Status: Inactive Member Role Status Dates PHYSICIAN NO FAMILY Primary Care Provider Active Trey Garrido MD Attending Provider Active Team Status: Inactive Member Role Status Dates Jelena Gregorio Jr, Attending Provider Active NON STAFF Primary Care Provider Active Team Status: Active Member Role Status Dates NON STAFF Primary Care Provider Active Team Status: Inactive Member Role Status Dates NON STAFF Primary Care Provider Active Jelena Gregorio Jr, DO Attending Provider Active Team Status: Inactive Member Role Status Dates Isaías Underwood MD Attending Provider Active PHYSICIAN NO FAMILY Primary Care Provider Active Leonard WillD Other Provider Active Engraver Set Up Operator Relationship Specialty Start Date End Date [address] [address] PCP - General Family Medicine 07/26/19 George Chaparro DO [address] [address] Referring Neurology 07/26/19 Raisa Cabrera PA-C [address] [address] Referring Neurology 02/17/21 Engraver Set Up Operator Relationship Specialty Start Date End Date [address] [address] PCP - General Family Medicine 07/26/19 George Chaparro DO [address] [place] [address] Referring Neurology 07/26/19 Raisa Cabrera PA-C [address] [place] [address] Referring Neurology 02/17/21 Engraver Set Up Operator Relationship Specialty Start Date End Date [facility] [address] [address] PCP - General Family Medicine 07/26/19 George Chaparro, DO [address] [place] [address] Referring Neurology 07/26/19 Raisa Cabrera PA-C [address] [place] [address] Referring Neurology 02/17/21 Engraver Set Up Operator Relationship Specialty Start Date End Date [address] [place] [address] PCP - General Family Medicine 07/26/19 George Chaparro, DO [address] [place] [address] Referring Neurology 07/26/19 Raisa Cabrera PA-C [address] [place] [address] Referring Neurology 02/17/21 Engraver Set Up Operator Relationship Specialty Start Date End Date [address] [place] [address] PCP - General Family Medicine 07/26/19 George Chaparro, DO [address] [place] [address] Referring Neurology 07/26/19 Raisa Cabrera PA-C [address] [address] [place] [address] Referring Neurology 02/17/21 Engraver Set Up Operator Relationship Specialty Start Date End Date Андрей Goode [address] [place] [address] PCP - General Family Medicine 07/26/19 George Chaparro DO [address] [address] [place] [address] Referring Neurology 07/26/19 Raisa Cabrera PA-C [address] [address] [place] [address] Referring Neurology 02/17/21 Engraver Set Up Operator Relationship Specialty Start Date End Date Андрей Goode [address] [place] [address], [place] [address] PCP - General Family Medicine 07/26/19 George Chaparro DO [address] [address] [place] [address] Referring Neurology 07/26/19 Raisa Cabrera PA-C [address] [address] [place] [address] Referring Neurology 02/17/21 Engraver Set Up Operator Relationship Specialty Start Date End Date Андрей Goode [address] [place] [address] PCP - General Family Medicine 07/26/19 George Chaparro DO [address] [address] [place] [address] Referring Neurology 07/26/19 Raisa Cabrera PA-C [address] [address] [place] [address] Referring Neurology 02/17/21 Engraver Set Up Operator Relationship Specialty Start Date End Date Андрей Goode [address] [place] [address] PCP - General Family Medicine 07/26/19 George Chaparro DO [address] [address] Referring Neurology 07/26/19 Raisa Cabrera PA-C [address] [address] Referring Neurology 02/17/21 Engraver Set Up Operator Relationship Specialty Start Date End Date Андрей Goode [address] [place] [address] PCP - General Family Medicine 07/26/19 George Chaparro DO [address] [place] [address] Referring Neurology 07/26/19 Raisa Cabrera PA-C [address] [address] Referring Neurology 02/17/21 Engraver Set Up Operator Relationship Specialty Start Date End Date Андрей Goode [address] [place] [address] PCP - General Family Medicine 07/26/19 George Chaparro DO [address] [place] [address] Referring Neurology 07/26/19 Raisa Cabrera PA-C [address] [place] [address] Referring Neurology 02/17/21 Engraver Set Up Operator Relationship Specialty Start Date End Date MedardoАндрей oropeza Dick [address] [place] [address] PCP - General Family Medicine 07/26/19 George Chaparro DO [address] [place] [address] Referring Neurology 07/26/19 Raisa Cabrera PA-C [address] [place] [address] Referring Neurology 02/17/21 Engraver Set Up Operator Relationship Specialty Start Date End Date Андрей Goode [address] [place] [address] PCP - General Family Medicine 07/26/19 George Chaparro DO [address] [place] [address] Referring Neurology 07/26/19 Raisa Cabrera PA-C [address] [address] Referring Neurology 02/17/21 Engraver Set Up Operator Relationship Specialty Start Date End Date RusselАндрей Dick [address] [place] [address] PCP - General Family Medicine 07/26/19 George Chaparro DO [address] [place] [address] Referring Neurology 07/26/19 Raisa Cabrera PA-C [address] [place] [address] Referring Neurology 02/17/21 Engraver Set Up Operator Relationship Specialty Start Date End Date MedardoАндрей oropeza Dick [address] [place] [address] PCP - General Family Medicine 07/26/19 George Chaparro DO [address] [place] [address] Referring Neurology 07/26/19 Raisa Cabrera PA-C [address] [place] [address] Referring Neurology 02/17/21 Engraver Set Up Operator Relationship Specialty Start Date End Date Андрей Goode [address] [place] [address] PCP - General Family Medicine 07/26/19 George Chaparro DO [address] [place] [address] Referring Neurology 07/26/19 Raisa Cabrera PA-C [address] [place] [address] Referring Neurology 02/17/21 Engraver Set Up Operator Relationship Specialty Start Date End Date Андрей Goode [address] [place] [address] PCP - General Family Medicine 07/26/19 George Chaparro DO [address] [place] [address] Referring Neurology 07/26/19 Raisa Cabrera PA-C [address] [address] Referring Neurology 02/17/21 Engraver Set Up Operator Relationship Specialty Start Date End Date Андрей Goode [address] [place] [address] PCP - General Family Medicine 07/26/19 George Chaparro DO [address] [address] Referring Neurology 07/26/19 Raisa Cabrera PA-C [address] [address] Referring Neurology 02/17/21 Engraver Set Up Operator Relationship Specialty Start Date End Date Generic Provider, [place] [address] PCP - General Mold Operator 05/23/24 Engraver Set Up Operator Relationship Specialty Start Date End Date Generic Provider, No [place] [address] PCP - General Mold Operator 05/23/24 Engraver Set Up Operator Relationship Specialty Start Date End Date Generic Provider, [place] [address] PCP - General Mold Operator 05/23/24 Engraver Set Up Operator Relationship Specialty Start Date End Date Jamey Lucero MD [address] [place] [address] PCP - General Family Medicine 07/28/23 Hayde Antonio MD [address] [place] [address] Referring Physician Family Medicine 07/28/23 Engraver Set Up Operator Relationship Specialty Start Date End Date Jamey Lucero MD [address] [place] [address] PCP - General Family Medicine 07/28/23 Hayde Antonio MD [facility] [place] [address] Referring Physician Family Medicine 07/28/23 Engraver Set Up Operator Relationship Specialty Start Date End Date Jamey Lucero MD [address] [place] [address] PCP - General Family Medicine 07/28/23 Hayde Antonio MD [address] [place] [address] Referring Physician Family Medicine 07/28/23 Engraver Set Up Operator Relationship Specialty Start Date End Date Jamey Lucero MD [address] [place] [address] PCP - General Family Medicine 07/28/23 Hayde Antonio MD [address] [place] [address] Referring Physician Family Medicine 07/28/23 Engraver Set Up Operator Relationship Specialty Start Date End Date Generic Provider, No [place] [address] PCP - General Mold Operator 05/23/24 Engraver Set Up Operator Relationship Specialty Start Date End Date Generic Provider, [place] [address] PCP - General Mold Operator 05/23/24 Goals (unrecognized section and content) Goals may be documented in a n alternate section Source Comments (unrecognize d section and content) In the event this informatio n is protected by the Federal Confidentiality of Alcohol and Drug Abuse Patient Records regulations: The Federal rules restrict any use of the information to criminally investigate or prosecute any alcohol or drug abuse patient.[facility] the event this information is protected by the Federal Confidentiality of Alcohol and Drug Abuse Patient Records regulations: The Federal rules restrict any use of the information to criminally investigate or prosecute any alcohol or drug abuse patient.[facility] the event this information is protected by the Federal Confidentiality of Alcohol and Drug Abuse Patient Records regulations: The Federal rules restrict any use of the information to criminally investigate or prosecute any alcohol or drug abuse patient.[facility] the event this information is protected by the Federal Confidentiality of Alcohol and Drug Abuse Patient Records regulations: The Federal rules restrict any use of the information to criminally investigate or prosecute any alcohol or drug abuse patient.[facility] the event this information is protected by the Federal Confidentiality of Alcohol and Drug Abuse Patient Records regulations: The Federal rules restrict any use of the information to criminally investigate or prosecute any alcohol or drug abuse patient.[facility] the event this information is protected by the Federal Confidentiality of Alcohol and Drug Abuse Patient Records regulations: The Federal rules restrict any use of the information to criminally investigate or prosecute any alcohol or drug abuse patient.[facility] the event this information is protected by the Federal Confidentiality of Alcohol and Drug Abuse Patient Records regulations: The Federal rules restrict any use of the information to criminally investigate or prosecute any alcohol or drug abuse patient.[facility] the event this information is protected by the Federal Confidentiality of Alcohol and Drug Abuse Patient Records regulations: The Federal rules restrict any use of the information to criminally investigate or prosecute any alcohol or drug abuse patient.[facility] the event this information is protected by the Federal Confidentiality of Alcohol and Drug Abuse Patient Records regulations: The Federal rules restrict any use of the information to criminally investigate or prosecute any alcohol or drug abuse patient.[facility] the event this information is protected by the Federal Confidentiality of Alcohol and Drug Abuse Patient Records regulations: The Federal rules restrict any use of the information to criminally investigate or prosecute any alcohol or drug abuse patient.[facility] CenterIn the event this information is protected by the Federal Confidentiality of Alcohol and Drug Abuse Patient Records regulations: The Federal rules restrict any use of the information to criminally investigate or prosecute any alcohol or drug abuse patient.[facility] CenterIn the event this information is protected by the Federal Confidentiality of Alcohol and Drug Abuse Patient Records regulations: The Federal rules restrict any use of the information to criminally investigate or prosecute any alcohol or drug abuse patient.[facility] CenterIn the event this information is protected by the Federal Confidentiality of Alcohol and Drug Abuse Patient Records regulations: The Federal rules restrict any use of the information to criminally investigate or prosecute any alcohol or drug abuse patient.[facility] CenterIn the event this information is protected by the Federal Confidentiality of Alcohol and Drug Abuse Patient Records regulations: The Federal rules restrict any use of the information to criminally investigate or prosecute any alcohol or drug abuse patient.[facility] CenterIn the event this information is protected by the Federal Confidentiality of Alcohol and Drug Abuse Patient Records regulations: The Federal rules restrict any use of the information to criminally investigate or prosecute any alcohol or drug abuse patient.[facility] CenterIn the event this information is protected by the Federal Confidentiality of Alcohol and Drug Abuse Patient Records regulations: The Federal rules restrict any use of the information to criminally investigate or prosecute any alcohol or drug abuse patient.[facility] CenterIn the event this information is protected by the Federal Confidentiality of Alcohol and Drug Abuse Patient Records regulations: The Federal rules restrict any use of the information to criminally investigate or prosecute any alcohol or drug abuse patient.[facility] CenterIn the event this information is protected by the Federal Confidentiality of Alcohol and Drug Abuse Patient Records regulations: The Federal rules restrict any use of the information to criminally investigate or prosecute any alcohol or drug abuse patient.[facility] CenterIn the event this information is protected by the Federal Confidentiality of Alcohol and Drug Abuse Patient Records regulations: The Federal rules restrict any use of the information to criminally investigate or prosecute any alcohol or drug abuse patient.[facility] CenterIn the event this information is protected by the Federal Confidentiality of Alcohol and Drug Abuse Patient Records regulations: The Federal rules restrict any use of the information to criminally investigate or prosecute any alcohol or drug abuse patient.[facility] CenterIn the event this information is protected by the Federal Confidentiality of Alcohol and Drug Abuse Patient Records regulations: The Federal rules restrict any use of the information to criminally investigate or prosecute any alcohol or drug abuse patient.[facility] CenterIn the event this information is protected by the Federal Confidentiality of Alcohol and Drug Abuse Patient Records regulations: The Federal rules restrict any use of the information to criminally investigate or prosecute any alcohol or drug abuse patient.[facility] CenterIn the event this information is protected by the Federal Confidentiality of Alcohol and Drug Abuse Patient Records regulations: The Federal rules restrict any use of the information to criminally investigate or prosecute any alcohol or drug abuse patient.[facility] CenterIn the event this information is protected by the Federal Confidentiality of Alcohol and Drug Abuse Patient Records regulations: The Federal rules restrict any use of the information to criminally investigate or prosecute any alcohol or drug abuse patient.[facility] FOR RECORDS PERTAINING TO PATIENTS WHO ARE [...] BE BASED ON THE PRIMARY CLINICAL RECORDS. [facility] [employer] [facility]. provides no warranty or guarantee of the accuracy or completeness of information in this document.
[2025-04-04 07:16] VITALS: BP 129/74; PULSE 85; TEMP 36.3; O2SAT 96; BMI 30.7
[2025-04-04] MEDS: 0.9 % SODIUM CHLORIDE 500 ML 50 ML IV (07:32)
[2025-04-04 08:21] VITALS: BP 120/72; PULSE 86; TEMP 36.3; O2SAT 96
[2025-04-04 08:36] VITALS: BP 125/95; PULSE 85; O2SAT 96
[2025-04-04 08:51] VITALS: BP 117/93; PULSE 83; O2SAT 98
== END 2025-04-04 08:55 | disposition home or self-care (01) ==
LOC: SURGOUT 07:10
PROVIDERS: PCP Nurse Practitioner Family; Visit Provider Surgery
PROC: (CPT 811; principal; 2025-04-04 08:00)
DX: R19.4 Change in bowel habit (principal); R10.31 Right lower quadrant pain; K62.5 Hemorrhage of anus and rectum; K21.9 Gastro-esophageal reflux disease without esophagitis; F41.9 Anxiety disorder, unspecified; G40.909 Epilepsy, unspecified, not intractable, without status epilepticus; Z90.49 Acquired absence of other specified parts of digestive tract; Z80.0 Family history of malignant neoplasm of digestive organs; F31.9 Bipolar disorder, unspecified; F17.290 Nicotine dependence, other tobacco product, uncomplicated; G47.33 Obstructive sleep apnea (adult) (pediatric); R73.03 Prediabetes; G62.9 Polyneuropathy, unspecified; F20.9 Schizophrenia, unspecified
CPT/HCPCS: 45378; J2704

== ENCOUNTER 2025-04-16 15:57 | Emergency (ER) | payer OTHER, SELFPAY ==
[2025-04-16 16:01] VITALS: BP 128/81; PULSE 85; TEMP 36.9; O2SAT 100; BMI 28.7
--- NOTE | 2025-04-16 17:24 | US_ITS ---
The [place] [id number] Patient Name: LATIA MARAVILLA MRN: [id number] date: 1985 Sex: M Assigned Patient Location: ED.MAIN Current Patient Location: ED.MAIN Accession/Order Number: [id number] Exam Date: 04/16/2025 20:18 Report Date: 04/16/2025 20:20 At the request of: MAGGIE FRANCES MD Procedure: US scrotum doppler Scrotal ultrasound INDICATION: Right-sided testicle pain for one day COMPARISON: None FINDINGS: Right left testicles are unremarkable size and echogenicity 4.0 x 1.9 x 2.9 cm and 4.1 x 1.9 x 3.0 cm respectively. Bilateral varicoceles noted. Epididymis 9 mm in size the right and 8 mm in size on the left. US/US scrotum doppler IMPRESSION: Negative for torsion or suspicious testicular mass lesion. Bilateral varicoceles. Impression dictated by: Hever Barber M.D. 04/16/2025 8:20 PM Dictation Location: [place] [address] Electronically authenticated by: [id number] Y Date: 04/16/2025 20:20
--- NOTE | 2025-04-16 17:25 | CT_ITS ---
The [address] [address] Patient Name: LATIA MARAVILLA MRN: [id number] date: 1985 Sex: M Assigned Patient Location: ER Current Patient Location: ED.MAIN Accession/Order Number: [id number] Exam Date: 04/16/2025 18:31 Report Date: 04/16/2025 18:45 At the request of: MAGGIE FRANCES MD Procedure: CT abdomen pelvis wo con CT ABDOMEN AND PELVIS WITHOUT INTRAVENOUS CONTRAST: CLINICAL HISTORY: RLQ pain COMPARISON: MRI 10/11/2019 TECHNIQUE: Spiral images were obtained through the abdomen and pelvis without intravenous contrast. This CT exam was performed using one or more following dose reduction techniques: Automated exposure control, adjustment of the mA and/or kV according to patient size, or use of iterative reconstruction technique. FINDINGS: Lung Bases: [Lung bases are clear.] Organs:Cholecystectomy. Otherwise the liver, spleen, adrenals, kidneys, and pancreas are unremarkable.[ GI: Mild retained stool the colon. No evidence of bowel obstruction. Appendix unremarkable.[ Pelvis:[Bladder unremarkable. Prostate unremarkable.] Peritoneum/Retroperitoneum:No free air or free fluid. Aorta unremarkable caliber. No bulky adenopathy.[ Abd wall/Bones:Postsurgical changes lumbosacral junction.[ CT/CT abdomen pelvis wo con IMPRESSION: Negative acute inflammatory process or bowel obstruction. Impression dictated by: Hever Barber M.D. 04/16/2025 6:45 PM Dictation Location: [place] [address] Electronically authenticated by: [id number] Y Date: 04/16/2025 18:45
[2025-04-16 17:32] LABS: Hematocrit 44.0 % (42.0-54.0); Hemoglobin 14.9 g/dL (14.0-18.0); Immature Granulocytes Abs Auto 0.01 10^3/uL (0.00-0.03); Immature Granulocytes Pct Auto 0.2 % (0.0-0.5); Lymphocytes Absolute Auto 2.6 10^3/uL (1.2-3.8); Mean Corpuscular HGB Conc 33.9 g/dL (29.9-35.2); Mean Corpuscular Hemoglobin 30.0 pg (25.9-34.0); Mean Corpuscular Volume 88.5 fL (80.0-94.0); Platelet Count 232 10^3/uL (150-450); Red Blood Count 4.97 10^6/uL (4.70-6.10); White Blood Count 5.4 10^3/uL (4.0-11.0)
[2025-04-16 17:54] LABS: Alanine Aminotransferase 22 U/L (16-63); Albumin Globulin Ratio 1.2; Albumin Level 4.5 g/dL (3.4-5.0); Alkaline Phosphatase 167 U/L (46-116); Anion Gap 8.9; Aspartate Amino Transferase 17 U/L (15-37); Blood Urea Nitrogen 7.0 mg/dL (7.0-18.0); Calcium 9.5 mg/dL (8.5-10.1); Carbon Dioxide 30.5 mmol/L (21.0-32.0); Chloride 103 mmol/L (98-107); Estimated GFR (African America >60 (>=60 mL/min/1.73m^2); Estimated GFR (Non-African Ame >60 (>=60 mL/min/1.73m^2); Globulin 3.6 g/dL; Glucose 91 mg/dL (74-106); Potassium 3.4 mmol/L (3.5-5.1); Sodium 139 mmol/L (136-145); Total Protein 8.1 g/dL (6.4-8.2)
[2025-04-16 18:10] VITALS: BP 118/67; PULSE 80; O2SAT 99
--- NOTE | 2025-04-16 18:16 | ED.ABDPAIN1 ---
HPI - Abdominal Pain General Chief Complaint: Abdominal Pain Stated Complaint: STOMACH PROBLEMS Time Seen by Provider: 04/16/25 16:17 Source: patient Mode of arrival: walk-in Limitations: no limitations History of Present Illness HPI narrative: Patient mention he have a strong history of colon cancer and that why he had a colonoscopy done almost 2 weeks ago, comes to us with a right lower quadrant pain radiating to his groin that been going on after since he had the colonoscopy Patient denies any nausea vomiting or decreased p.o. intake he also denies any constipation No blood in stool at any time Related Data Home Medications ?Medication ?Instructions ?Recorded ?Confirmed lamotrigine 150 mg tablet 100 mg PO Q8H 08/01/23 04/04/25 dextroamphetamine-amphetamine 15 15 mg PO DAILY 03/06/25 04/04/25 mg tablet (Adderall) duloxetine 60 mg capsule,delayed 60 mg PO DAILY 03/06/25 04/04/25 release lorazepam 1 mg tablet 1 mg PO Q6H PRN anxiety 03/06/25 04/04/25 omeprazole 40 mg capsule,delayed 40 mg PO DAILY 03/06/25 04/04/25 release quetiapine 400 mg tablet 800 mg PO BEDTIME 03/06/25 04/04/25 sumatriptan succinate 100 mg tablet 100 mg PO PRN 03/06/25 04/04/25 Allergies Allergy/AdvReac Type Severity Reaction Status Date / Time penicillin G AdvReac Severe edema Verified 04/16/25 16:01 tramadol AdvReac Severe Seizure Verified 04/16/25 16:01 ketorolac (From Toradol) AdvReac Intermediate Anxiety Verified 04/16/25 16:01 Review of Systems ROS Status of ROS 10 or more systems reviewed and unremarkable except as noted in history and below [facility] Medical History (Updated 03/06/25 @ 11:31 by Rosalina Wheeler) Fusion of lumbar spine ?M43.26 - Fusion of spine, lumbar region (ICD-10) Lumbar radiculopathy ?M54.16 - Radiculopathy, lumbar region (ICD-10) Vapes nicotine containing substance ?Z72.0 - Tobacco use (ICD-10) Right sided abdominal pain ?R10.9 - Unspecified abdominal pain (ICD-10) Rectal bleeding ?K62.5 - Hemorrhage of anus and rectum (ICD-10) Neuropathy ?G62.9 - Polyneuropathy, unspecified (ICD-10) GERD (gastroesophageal reflux disease) ?K21.9 - Gastro-esophageal reflux disease without esophagitis (ICD-10) Change in bowel habits ?R19.4 - Change in bowel habit (ICD-10) Schizoaffective disorder ?F25.9 - Schizoaffective disorder, unspecified (ICD-10) Attention deficit hyperactivity disorder ?F90.9 - Attention-deficit hyperactivity disorder, unspecified type (ICD-10) Family history of malignant neoplasm of colon in relative diagnosed when younger than 50 years of age ?Z80.0 - Family history of malignant neoplasm of digestive organs (ICD-10) Depression ?F32.A - Depression, unspecified (ICD-10) Knee pain ?M25.569 - Pain in unspecified knee (ICD-10) Chronic knee pain ?M25.569 - Pain in unspecified knee (ICD-10) ?G89.29 - Other chronic pain (ICD-10) Bipolar disorder ?F31.9 - Bipolar disorder, unspecified (ICD-10) Anxiety ?F41.9 - Anxiety disorder, unspecified (ICD-10) Sleep apnea ?G47.30 - Sleep apnea, unspecified (ICD-10) Seizures ?R56.9 - Unspecified convulsions (ICD-10) Prediabetes ?R73.03 - Prediabetes (ICD-10) Surgical History (Updated 04/04/25 @ 07:22 by Stefani Rouse RN) History of back surgery ?Z98.890 - Other specified postprocedural states (ICD-10) History of knee surgery ?Z98.890 - Other specified postprocedural states (ICD-10) History of arthroplasty of left knee ?Z96.652 - Presence of left artificial knee joint (ICD-10) History of cholecystectomy ?Z90.49 - Acquired absence of other specified parts of digestive tract (ICD-10) Family History (Updated 03/06/25 @ 11:19 by Rosalina Wheeler) Other Family history of cancer Family history of diabetes mellitus Family history of hypertension Family history of renal failure Social History (Updated 03/06/25 @ 11:17 by Rosalina Wheeler) Within the past year, how often did you have a drink containing alcohol: never Score interpretation: A score less than 4 is consistent with normal alcohol consumption. Do you use any of these nicotine containing products: vaping products Non-prescribed substance use: denies use Previous occupational history: disability Highest level of school completed/degree received: 11th grade Little interest or pleasure in doing things: not at all Feeling down, depressed, or hopeless: not at all Exam Narrative Exam Narrative: Nurses notes and vital signs reviewed and patient is not hypoxic. General: Well-appearing and in no apparent distress. Skin: Warm, dry, no pallor noted. No rash. Head: Normocephalic, atraumatic. Neck: Supple, non-tender. Eye: Pupils are equal, round and EOMI. No scleral icterus. Ears, Nose, Mouth, and Throat: TM are clear, no nasal mucosal hypertrophy. Oral mucosa is moist, no posterior oropharynx erythema, uvula is mid-line Cardiovascular: Regular Rate and Rhythm without murmur, gallop or rub. Respiratory: No accessory muscle use or respiratory distress. Lungs are clear to auscultation, no wheezing, rales or rhonchi Chest Wall: no tenderness Back: No midline thoracic or lumbar vertebral tenderness. No CVA tenderness Musculoskeletal: normal ROM, no calf or popliteal tenderness, no lower extremity edema/swelling GI: Abdomen is soft, non-distended. Normal bowel sounds. No masses appreciated. No tenderness to palpation. Right lower quadrant tenderness on deep palpation in addition to scrotal examination showed that the patient have no obvious tenderness on exam and there is no hernia Skin examination of the scrotum is normal Constitutional Vital Signs, click to edit/add: Last Vital Signs Temp 98.4 F 04/16/25 16:01 Pulse 80 04/16/25 18:10 Resp 16 04/16/25 18:10 BP 118/67 04/16/25 18:10 Pulse Ox 99 04/16/25 18:10 O2 Del Method Room Air 04/16/25 16:01 Course Vital Signs Vital signs: Vital Signs Temperature 98.4 F 04/16/25 16:01 Pulse Rate 85 04/16/25 16:01 Respiratory Rate 20 04/16/25 16:01 Blood Pressure 128/81 04/16/25 16:01 Pulse Oximetry 100 04/16/25 16:01 Oxygen Delivery Method Room Air 04/16/25 16:01 Temperature 98.4 F 04/16/25 16:01 Pulse Rate 80 04/16/25 18:10 Respiratory Rate 16 04/16/25 18:10 Blood Pressure 118/67 04/16/25 18:10 Pulse Oximetry 99 04/16/25 18:10 Oxygen Delivery Method Room Air 04/16/25 16:01 MDM - Abdominal Pain MDM Narrative Medical decision making narrative: The patient CBC and chemistry is pending CAT scan of the abdomen and ultrasound is pending Lab Data Labs: Lab Results 04/16/25 Range/Units 17:12 WBC 5.4 (4.0-11.0) 10^3/uL RBC 4.97 (4.70-6.10) 10^6/uL Hgb 14.9 (14.0-18.0) g/dL Hct 44.0 (42.0-54.0) % MCV 88.5 (80.0-94.0) fL MCH 30.0 (25.9-34.0) pg MCHC 33.9 (29.9-35.2) g/dL RDW 14.2 (11.0-15.0) % Plt Count 232 (150-450) 10^3/uL MPV 10.3 (9.5-13.5) fL Neut % (Auto) 40.5 L (43.0-75.0) % Lymph % (Auto) 47.8 (20.5-60.0) % [place] % (Auto) 6.4 (1.7-12.0) % Eos % (Auto) 4.4 (0.9-7.0) % Baso % (Auto) 0.7 (0.2-2.0) % Neut # (Auto) 2.2 (1.4-6.5) 10^3/uL Lymph # (Auto) 2.6 (1.2-3.8) 10^3/uL [place] # (Auto) 0.4 (0.3-0.8) 10^3/uL Eos # (Auto) 0.2 (0.0-0.7) 10^3/uL Baso # (Auto) 0.0 (0.0-0.1) 10^3/uL Abs Immat Gran (auto) 0.01 (0.00-0.03) 10^3/uL Imm/Tot Granulo (auto) 0.2 (0.0-0.5) % Sodium 139 (136-145) mmol/L Potassium 3.4 L (3.5-5.1) mmol/L Chloride 103 (98-107) mmol/L Carbon Dioxide 30.5 (21.0-32.0) mmol/L Anion Gap 8.9 BUN 7.0 (7.0-18.0) mg/dL Creatinine 1.03 (0.70-1.30) mg/dL Est GFR ( Amer) >60 (>=60 mL/min/1.73m^2) Est GFR (Non-Af Amer) >60 (>=60 mL/min/1.73m^2) BUN/Creatinine Ratio 6.8 Glucose 91 (74-106) mg/dL Calcium 9.5 (8.5-10.1) mg/dL Total Bilirubin 0.3 (0.2-1.0) mg/dL AST 17 (15-37) U/L ALT 22 (16-63) U/L Alkaline Phosphatase 167 H (46-116) U/L Total Protein 8.1 (6.4-8.2) g/dL Albumin 4.5 (3.4-5.0) g/dL Globulin 3.6 g/dL Albumin/Globulin Ratio 1.2 Discharge Plan Discharge Patient Disposition: Still a Patient
[2025-04-16 18:46] LABS: Glucose Urine UA NEGATIVE (NEGATIVE)
[2025-04-16 20:01] VITALS: BP 128/65; PULSE 84; O2SAT 99
[2025-04-16] MEDS: OXYCODONE HCL/ACETAMINOPHEN 5MG/325MG 1 TAB PO (20:05)
--- NOTE | 2025-04-16 20:34 | ED.GENADUL1 ---
HPI HPI - General Adult General Chief complaint: Abdominal Pain Stated complaint: STOMACH PROBLEMS Time Seen by Provider: 04/16/25 16:17 Source: patient Mode of arrival: walk-in Limitations: no limitations History of Present Illness HPI narrative: 39-year-old male presented for testicular pain and was initially seen by Dr. Silverio. Please see her full history and physical exam. Related Data Home Medications ?Medication ?Instructions ?Recorded ?Confirmed lamotrigine 150 mg tablet 100 mg PO Q8H 08/01/23 04/04/25 dextroamphetamine-amphetamine 15 15 mg PO DAILY 03/06/25 04/16/25 mg tablet (Adderall) duloxetine 60 mg capsule,delayed 60 mg PO DAILY 03/06/25 04/04/25 release lorazepam 1 mg tablet 1 mg PO Q6H PRN anxiety 03/06/25 04/16/25 omeprazole 40 mg capsule,delayed 40 mg PO DAILY 03/06/25 04/16/25 release quetiapine 400 mg tablet 800 mg PO BEDTIME 03/06/25 04/16/25 sumatriptan succinate 100 mg tablet 100 mg PO PRN 03/06/25 04/16/25 asenapine maleate 5 mg sublingual 5 mg sublingual BID 04/16/25 04/16/25 tablet dextroamphetamine-amphetamine ER 20 mg PO DAILY 04/16/25 04/16/25 20 mg 24hr capsule,extend release gabapentin 600 mg tablet 600 mg PO TID PRN pain 04/16/25 04/16/25 naproxen 500 mg tablet 500 mg PO BID 04/16/25 04/16/25 oxycodone-acetaminophen 5 mg-325 1 tab PO BID PRN pain 04/16/25 04/16/25 mg tablet Allergies Allergy/AdvReac Type Severity Reaction Status Date / Time penicillin G AdvReac Severe edema Verified 04/16/25 16:01 tramadol AdvReac Severe Seizure Verified 04/16/25 16:01 ketorolac (From Toradol) AdvReac Intermediate Anxiety Verified 04/16/25 16:01 Opioid HPI Opioid Management Most Recent Opioid Data: Last Pain Scale 7 Today, 16:01 Ur Phencyclidine Scrn, (NEGATIVE) Negative 04/28/23, 16:15 PFSH PFSH Medical History (Updated 04/16/25 @ 20:34 by Phoenix Cummings MD) Fusion of lumbar spine ?M43.26 - Fusion of spine, lumbar region (ICD-10) Lumbar radiculopathy ?M54.16 - Radiculopathy, lumbar region (ICD-10) Vapes nicotine containing substance ?Z72.0 - Tobacco use (ICD-10) Right sided abdominal pain ?R10.9 - Unspecified abdominal pain (ICD-10) Rectal bleeding ?K62.5 - Hemorrhage of anus and rectum (ICD-10) Neuropathy ?G62.9 - Polyneuropathy, unspecified (ICD-10) GERD (gastroesophageal reflux disease) ?K21.9 - Gastro-esophageal reflux disease without esophagitis (ICD-10) Change in bowel habits ?R19.4 - Change in bowel habit (ICD-10) Schizoaffective disorder ?F25.9 - Schizoaffective disorder, unspecified (ICD-10) Attention deficit hyperactivity disorder ?F90.9 - Attention-deficit hyperactivity disorder, unspecified type (ICD-10) Family history of malignant neoplasm of colon in relative diagnosed when younger than 50 years of age ?Z80.0 - Family history of malignant neoplasm of digestive organs (ICD-10) Depression ?F32.A - Depression, unspecified (ICD-10) Knee pain ?M25.569 - Pain in unspecified knee (ICD-10) Chronic knee pain ?M25.569 - Pain in unspecified knee (ICD-10) ?G89.29 - Other chronic pain (ICD-10) Bipolar disorder ?F31.9 - Bipolar disorder, unspecified (ICD-10) Anxiety ?F41.9 - Anxiety disorder, unspecified (ICD-10) Sleep apnea ?G47.30 - Sleep apnea, unspecified (ICD-10) Seizures ?R56.9 - Unspecified convulsions (ICD-10) Prediabetes ?R73.03 - Prediabetes (ICD-10) Surgical History (Updated 04/04/25 @ 07:22 by Stefani Rouse RN) History of back surgery ?Z98.890 - Other specified postprocedural states (ICD-10) History of knee surgery ?Z98.890 - Other specified postprocedural states (ICD-10) History of arthroplasty of left knee ?Z96.652 - Presence of left artificial knee joint (ICD-10) History of cholecystectomy ?Z90.49 - Acquired absence of other specified parts of digestive tract (ICD-10) Family History (Updated 03/06/25 @ 11:19 by Rosalina Wheeler) Other Family history of cancer Family history of diabetes mellitus Family history of hypertension Family history of renal failure Social History (Updated 03/06/25 @ 11:17 by Rosalina Wheeler) Within the past year, how often did you have a drink containing alcohol: never Score interpretation: A score less than 4 is consistent with normal alcohol consumption. Do you use any of these nicotine containing products: vaping products Non-prescribed substance use: denies use Previous occupational history: disability Highest level of school completed/degree received: 11th grade Little interest or pleasure in doing things: not at all Feeling down, depressed, or hopeless: not at all Exam Constitutional Vital Signs, click to edit/add: Last Vital Signs Temp 98.4 F 04/16/25 16:01 Pulse 84 04/16/25 20:01 Resp 18 04/16/25 20:01 BP 128/65 04/16/25 20:01 Pulse Ox 99 04/16/25 20:01 O2 Del Method Room Air 04/16/25 16:01 Course Vital Signs Vital signs: Vital Signs Temperature 98.4 F 04/16/25 16:01 Pulse Rate 85 04/16/25 16:01 Respiratory Rate 20 04/16/25 16:01 Blood Pressure 128/81 04/16/25 16:01 Pulse Oximetry 100 04/16/25 16:01 Oxygen Delivery Method Room Air 04/16/25 16:01 Temperature 98.4 F 04/16/25 16:01 Pulse Rate 84 04/16/25 20:01 Respiratory Rate 18 04/16/25 20:01 Blood Pressure 128/65 04/16/25 20:01 Pulse Oximetry 99 04/16/25 20:01 Oxygen Delivery Method Room Air 04/16/25 16:01 Medical Decision Making MDM Narrative Medical decision making narrative: Ultrasound per radiologist shows varicoceles but no acute findings and the patient is able to be discharged home. Treatment diagnosis and follow-up were discussed with the patient. Differential Diagnosis Differential Diagnosis: Testicular torsion, epididymitis, orchitis Lab Data Lab results reviewed: Yes I reviewed the patient's lab results Labs: Lab Results 08/04/25 08/04/25 Range/Units 17:12 18:15 WBC 5.4 (4.0-11.0) 10^3/uL RBC 4.97 (4.70-6.10) 10^6/uL Hgb 14.9 (14.0-18.0) g/dL Hct 44.0 (42.0-54.0) % MCV 88.5 (80.0-94.0) fL MCH 30.0 (25.9-34.0) pg MCHC 33.9 (29.9-35.2) g/dL RDW 14.2 (11.0-15.0) % Plt Count 232 (150-450) 10^3/uL MPV 10.3 (9.5-13.5) fL Neut % (Auto) 40.5 L (43.0-75.0) % Lymph % (Auto) 47.8 (20.5-60.0) % [place] % (Auto) 6.4 (1.7-12.0) % Eos % (Auto) 4.4 (0.9-7.0) % Baso % (Auto) 0.7 (0.2-2.0) % Neut # (Auto) 2.2 (1.4-6.5) 10^3/uL Lymph # (Auto) 2.6 (1.2-3.8) 10^3/uL [place] # (Auto) 0.4 (0.3-0.8) 10^3/uL Eos # (Auto) 0.2 (0.0-0.7) 10^3/uL Baso # (Auto) 0.0 (0.0-0.1) 10^3/uL Abs Immat Gran (auto) 0.01 (0.00-0.03) 10^3/uL Imm/Tot Granulo (auto) 0.2 (0.0-0.5) % Sodium 139 (136-145) mmol/L Potassium 3.4 L (3.5-5.1) mmol/L Chloride 103 (98-107) mmol/L Carbon Dioxide 30.5 (21.0-32.0) mmol/L Anion Gap 8.9 BUN 7.0 (7.0-18.0) mg/dL Creatinine 1.03 (0.70-1.30) mg/dL Est GFR ( Amer) >60 (>=60 mL/min/1.73m^2) Est GFR (Non-Af Amer) >60 (>=60 mL/min/1.73m^2) BUN/Creatinine Ratio 6.8 Glucose 91 (74-106) mg/dL Calcium 9.5 (8.5-10.1) mg/dL Total Bilirubin 0.3 (0.2-1.0) mg/dL AST 17 (15-37) U/L ALT 22 (16-63) U/L Alkaline Phosphatase 167 H (46-116) U/L Total Protein 8.1 (6.4-8.2) g/dL Albumin 4.5 (3.4-5.0) g/dL Globulin 3.6 g/dL Albumin/Globulin Ratio 1.2 Urine Color Yellow (YELLOW) Urine Clarity Clear (CLEAR) Urine pH 6.0 (5.0-9.0) Ur Specific [place] 1.025 (1.005-1.025) Urine Protein Negative (NEG/TRACE) mg/dL Urine Glucose (UA) Negative (NEGATIVE) mg/dL Urine Ketones Negative (NEGATIVE) mg/dL Urine Occult Blood Negative (NEGATIVE) Urine Nitrite Negative (NEGATIVE) Urine Bilirubin Negative (NEGATIVE) Urine Urobilinogen 0.2 (0.2-1.0) EU/dL Ur Leukocyte Esterase Negative (NEGATIVE) Imaging Data CT scan - abdomen: Radiologist's impression: ITS Impressions Scrotum Ultrasound 04/16/25 17:24 IMPRESSION: Negative for torsion or suspicious testicular mass lesion. Bilateral varicoceles. Impression dictated by: Hever Barber M.D. 04/16/2025 8:20 PM Dictation Location: [facility] Electronically authenticated by: [id number] Y Date: 04/16/2025 20:20 Abdomen/Pelvis CT 04/16/25 17:25 IMPRESSION: Negative acute inflammatory process or bowel obstruction. Impression dictated by: Hever Barber M.D. 04/16/2025 6:45 PM Dictation Location: [facility] Electronically authenticated by: [id number] Y Date: 04/16/2025 18:45 Discharge Plan Discharge Chief Complaint: Abdominal Pain Clinical Impression: Pain in both testicles Patient Disposition: Home, Self-Care Time of Disposition Decision: 20:33 Condition: Good Prescriptions / Home Meds: No Action lamotrigine 150 mg tablet 100 mg PO Q8H asenapine maleate 5 mg tablet, sublingual 5 mg SUBLINGUAL BID dextroamphetamine-amphetamine 20 mg capsule,extended release 24hr 20 mg PO DAILY gabapentin 600 mg tablet 600 mg PO TID PRN (Reason: pain) naproxen 500 mg tablet 500 mg PO BID oxycodone-acetaminophen 5-325 mg tablet 1 tab PO BID PRN (Reason: pain) lorazepam 1 mg tablet 1 mg PO Q6H PRN (Reason: anxiety) omeprazole 40 mg capsule,delayed release(DR/EC) 40 mg PO DAILY quetiapine 400 mg tablet 800 mg PO BEDTIME sumatriptan succinate 100 mg tablet 100 mg PO PRN Rx Instructions: for migraine may repeat in 2 hours duloxetine 60 mg capsule,delayed release(DR/EC) 60 mg PO DAILY dextroamphetamine-amphetamine [Adderall] 15 mg tablet 15 mg PO DAILY Print Language: Mohawk Instructions: Testicle Pain (ED) Referrals: FELICIA ANTONIO [Primary Care Provider, Family Practice] - 1 week
== END 2025-04-16 20:42 | disposition home or self-care (01) ==
PROVIDERS: Emergency Medicine; Emergency Provider Emergency Medicine; PCP Nurse Practitioner Family
DX: N50.812 Left testicular pain (principal); N50.811 Right testicular pain; I86.1 Scrotal varices; Z80.0 Family history of malignant neoplasm of digestive organs; Z96.652 Presence of left artificial knee joint; Z90.49 Acquired absence of other specified parts of digestive tract; F17.290 Nicotine dependence, other tobacco product, uncomplicated
CPT/HCPCS: 36415; 74176; 76870; 80053; 81003; 85025; 93976; 99285